=== PATIENT | female | born 1960 | race Caucasian/White ===

== ENCOUNTER 2023-04-08 14:45 | Outpatient (OUT) | payer MEDICARE, MEDICAID, SELFPAY ==
--- NOTE | 2023-04-08 | XR_ITS ---
The [address] [address] Patient Name: OLY MARTIN MRN: [id number] date: 1960 Sex: F Assigned Patient Location: [facility] Current Patient Location: Accession/Order Number: [id number] Exam Date: 04/08/2023 14:50 Report Date: 04/09/2023 09:54 At the request of: ISABELLA KELLY Procedure: XR foot RT min 3V PROCEDURE: XR foot RT min 3V HISTORY: RIGHT FOOT WOUND plantar surface wound in region of first metatarsal COMPARISON: XR foot right 06/09/2022 FINDINGS: BONES:Mild-moderate degenerative changes of the first metatarsophalangeal joint and interphalangeal joint. Degenerative enthesopathic spurring of the calcaneus and mild degenerative changes the midfoot. Stable osseous spurs projecting from second metatarsal, likely sequela of remote injury. No fracture, dislocation, or cortical destruction. SOFT TISSUES:Mild swelling. No radiopaque foreign body or appreciable plantar skin surface defect. EFFUSION:None visible. OTHER: Negative. XR/XR foot RT min 3V IMPRESSION: 1. Stable degenerative changes. 2. No radiographic findings to suggest osteomyelitis. Electronically authenticated by: AMANDA HOSKINS Date: 04/09/2023 09:54
== END 2023-04-08 14:46 | disposition home or self-care (01) ==
LOC: RAD 14:45
PROVIDERS: Visit Provider Physician Assistant
DX: L97.511 Non-pressure chronic ulcer of other part of right foot limited to breakdown of skin (principal)
CPT/HCPCS: 73630

== ENCOUNTER 2023-04-08 16:12 | Emergency (ER) | payer MEDICARE, MEDICAID, SELFPAY ==
[2023-04-08] VITALS (33 sets, daily range): BP systolic 161–228; BP diastolic 82–138; PULSE 87–114; RESP 15–97; TEMP 37.1; O2SAT 92–99; BMI 41.6
--- NOTE | 2023-04-08 16:28 | ECG_ITS ---
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
--- NOTE | 2023-04-08 16:29 | CT_ITS ---
The [address] [address] Patient Name: OLY MARTIN MRN: [id number] date: 1960 Sex: F Assigned Patient Location: ER Current Patient Location: ER Accession/Order Number: [id number] Exam Date: 04/08/2023 16:53 Report Date: 04/08/2023 17:08 At the request of: TANVIR BRIGGS Procedure: CT head/brain wo con EXAM: CT scan of the head without contrast. Dose reduction technique used: Automated exposure control and/or adjustment of the mA and/or kV according to patient size and/or use of iterative reconstruction technique. REASON FOR EXAM: Headache, hypertension COMPARISON: CT scan dated 07/20/2014 FINDINGS: No intracranial hemorrhage, mass effect, midline shift, fractures or evidence of acute ischemic infarct. No hydrocephalus. Tiny old left basal ganglia lacunar infarct. Minimal generalized cerebral and cerebellar volume loss. Minimal small vessel gliosis. Paranasal sinuses and mastoid air cells are clear. Remainder unremarkable. CT/CT head/brain wo con IMPRESSION: No acute intracranial abnormalities. Electronically authenticated by: GRACIELA DEAN Date: 04/08/2023 17:08
--- NOTE | 2023-04-08 16:29 | ED.GENADUL1 ---
HPI - General Adult General Chief complaint: Recheck/Abnormal Lab/Rx Stated complaint: High Blood Pressure Time Seen by Provider: 04/08/23 16:20 Source: patient Mode of arrival: walk-in Limitations: no limitations History of Present Illness HPI narrative: 62-year-old female presents for elevated blood pressure. She was sent here from wound care clinic. She is on blood pressure medication and states she has not missed any doses. For the past three days she's been feeling a little bit off balance. She's had a mild headache but hasn't had any head injury. No chest pain or palpitations or shortness of breath. Related Data Home Medications Medication Instructions Recorded Confirmed amlodipine 5 mg tablet 10 mg PO DAILY 04/08/23 04/08/23 carvedilol 25 mg tablet 25 mg PO BID 04/08/23 04/08/23 ciprofloxacin HCl 500 mg tablet 500 mg PO DAILY 04/08/23 04/08/23 dapagliflozin propanediol 10 mg 10 mg PO DAILY 04/08/23 04/08/23 tablet (Farxiga) empagliflozin 10 mg tablet 10 mg PO DAILY 04/08/23 04/08/23 (Jardiance) fluticasone propionate 50 1 spray intranasal Q12H 04/08/23 04/08/23 mcg/actuation nasal spray,suspension hydralazine 25 mg tablet 25 mg PO TID 04/08/23 04/08/23 hydrochlorothiazide 25 mg tablet 25 mg PO DAILY 04/08/23 04/08/23 insulin glargine 100 unit/mL (3 1 unit subcut DAILY 04/08/23 04/08/23 mL) subcutaneous pen (Lantus Solostar U-100 Insulin) insulin lispro 100 unit/mL 1 sliding scale dose subcut DAILY 04/08/23 04/08/23 subcutaneous pen (Humalog KwikPen (U-100) Insulin) lacosamide 100 mg tablet 100 mg PO BID 04/08/23 04/08/23 levetiracetam 500 mg tablet 500 mg PO DAILY 04/08/23 04/08/23 levetiracetam 750 mg tablet 750 mg PO Q12H 04/08/23 04/08/23 losartan 25 mg tablet 25 mg PO DAILY 04/08/23 04/08/23 paroxetine HCl 40 mg tablet 40 mg PO DAILY 04/08/23 04/08/23 potassium chloride 20 mEq 20 meq PO BID 04/08/23 04/08/23 tablet,extended release(part/cryst) zolpidem 10 mg tablet 10 mg PO DAILY 04/08/23 04/08/23 Allergies Allergy/AdvReac Type Severity Reaction Status Date / Time meperidine [From Demerol] Allergy Severe Verified 04/08/23 16:23 morphine Allergy Severe Verified 04/08/23 16:23 tylenol 3 Allergy Severe Uncoded 04/08/23 16:23 Review of Systems ROS Narrative A ten point review of systems is negative except as noted above. PFSH PFSH Social History Smoking status: Never smoker Exam Narrative Exam Narrative: Nurses note and vital signs reviewed and patient is not hypoxic. General: The patient appears well and in no apparent distress. Patient is resting comfortably on cart. Skin: Warm, dry, no pallor noted. There is no rash noted. Head: Normocephalic, atraumatic Eye: Normal conjunctiva, no drainage Ears, Nose, Mouth, and Throat: oral mucosa is moist. Nares patent. Cardiovascular: Regular Rate and Rhythm Respiratory: Patient is in no distress, no accessory muscle use, lungs are clear to auscultation, no wheezing, rales or rhonchi Back: non-tender GI: obese and nontender Musculoskeletal: The patient has no evidence of calf tenderness, no pitting edema, symmetrical pulses noted bilaterally Neurological: awake and alert Psychiatric: Cooperative Constitutional Vital Signs, click to edit/add: Last Vital Signs Temp 98.7 F 04/08/23 16:15 Pulse 87 04/08/23 18:20 Resp 22 04/08/23 18:20 BP 186/100 H 04/08/23 18:41 Pulse Ox 97 04/08/23 18:20 O2 Del Method Room Air 04/08/23 16:15 Course Vital Signs Vital signs: Vital Signs Temperature 98.7 F 04/08/23 16:15 Pulse Rate 114 H 04/08/23 16:15 Respiratory Rate 24 04/08/23 16:15 Blood Pressure 228/118 H 04/08/23 16:15 Pulse Oximetry 99 04/08/23 16:15 Oxygen Delivery Method Room Air 04/08/23 16:15 Temperature 98.7 F 04/08/23 16:15 Pulse Rate 87 04/08/23 18:20 Respiratory Rate 22 04/08/23 18:20 Blood Pressure 186/100 H 04/08/23 18:41 Pulse Oximetry 97 04/08/23 18:20 Oxygen Delivery Method Room Air 04/08/23 16:15 Medical Decision Making MDM Narrative Medical decision making narrative: the patient presented with elevated blood pressure which was persistent here. She was ordered IV labetalol and the patient is signed out to Dr. Henry. Differential Diagnosis Differential Diagnosis: uncontrolled hypertension, acute kidney injury, medication noncompliance Lab Data Lab results reviewed: Yes I reviewed the patient's lab results Labs: Lab Results 04/08/23 Range/Units 16:20 WBC 9.2 (4.0-11.0) 10^3/uL RBC 4.24 (4.20-5.40) 10^6/uL Hgb 11.4 L (12.0-16.0) g/dL Hct 34.6 L (36.0-48.0) % MCV 81.6 (81.0-99.0) fL MCH 26.9 (26.7-34.0) pg MCHC 32.9 (29.9-35.2) g/dL RDW 13.5 (11.0-15.0) % Plt Count 304 (150-450) 10^3/uL MPV 9.9 (9.5-13.5) fL Neut % (Auto) 63.4 (43.0-75.0) % Lymph % (Auto) 25.8 (20.5-60.0) % [place]anco % (Auto) 7.4 (1.7-12.0) % Eos % (Auto) 2.4 (0.9-7.0) % Baso % (Auto) 0.8 (0.2-2.0) % Neut # (Auto) 5.8 (1.4-6.5) 10^3/uL Lymph # (Auto) 2.4 (1.2-3.8) 10^3/uL [place] # (Auto) 0.7 (0.3-0.8) 10^3/uL Eos # (Auto) 0.2 (0.0-0.7) 10^3/uL Baso # (Auto) 0.1 (0.0-0.1) 10^3/uL Abs Immat Gran (auto) 0.02 (0.00-0.03) 10^3/uL Imm/Tot Granulo (auto) 0.2 (0.0-0.5) % Sodium 138 (136-145) mmol/L Potassium 3.2 L (3.5-5.1) mmol/L Chloride 101 (98-107) mmol/L Carbon Dioxide 24.8 (21.0-32.0) mmol/L Anion Gap 15.4 BUN 31.0 H (7.0-18.0) mg/dL Creatinine 1.72 H (0.55-1.02) mg/dL Est GFR ( Amer) 37 L (>=60) Est GFR (Non-Af Amer) 30 L (>=60) BUN/Creatinine Ratio 18.0 Glucose 168 H (74-106) mg/dL Calcium 9.1 (8.5-10.1) mg/dL ECG Data Attestation: I personally reviewed and interpreted this ECG as follows: (EKG on my interpretation shows sinus tachycardia without acute change.) Discharge Plan Discharge Chief Complaint: Recheck/Abnormal Lab/Rx Clinical Impression: Hypertension Patient Disposition: Still a Patient Prescriptions / Home Meds: No Action amlodipine 5 mg tablet 10 mg PO DAILY carvedilol 25 mg tablet 25 mg PO BID ciprofloxacin HCl 500 mg tablet 500 mg PO DAILY Farxiga 10 mg tablet 10 mg PO DAILY Jardiance 10 mg tablet 10 mg PO DAILY fluticasone propionate 50 mcg/actuation spray,suspension 1 spray INTRANASAL Q12H hydralazine 25 mg tablet 25 mg PO TID hydrochlorothiazide 25 mg tablet 25 mg PO DAILY insulin glargine [Lantus Solostar U-100 Insulin] 100 unit/mL (3 mL) insulin pen 1 unit SUBCUT DAILY insulin lispro [Humalog KwikPen Insulin] 100 unit/mL insulin pen 1 sliding scale dose SUBCUT DAILY lacosamide 100 mg tablet 100 mg PO BID levetiracetam 500 mg tablet 500 mg PO DAILY levetiracetam 750 mg tablet 750 mg PO Q12H losartan 25 mg tablet 25 mg PO DAILY paroxetine HCl 40 mg tablet 40 mg PO DAILY potassium chloride 20 mEq tablet,ER particles/crystals 20 meq PO BID zolpidem 10 mg tablet 10 mg PO DAILY Referrals: Physician,Non-Staff, [Primary Care Provider] - 1 week
--- NOTE | 2023-04-08 16:40 | PC.NURSE ---
pt is a diabetic and was at wound clinic today. pt was feeling sob and bp was reading high in office and was sent over after wound care was completed. on arrival to ED pt is tearful d/t feeling sob. no hx of copd, chf, asthma. pt denies chest pain. pt manual bp on arrival is 220s/120s. pt states she does take her bp medications as prescribed. pt is c/o a headache.
[2023-04-08 16:46] LABS: Basophils Absolute Auto 0.1 10^3/uL (0.0-0.1); Basophils Percent Auto 0.8 % (0.2-2.0); Eosinophils Absolute Auto 0.2 10^3/uL (0.0-0.7); Eosinophils Percent Auto 2.4 % (0.9-7.0); Hematocrit 34.6 % (36.0-48.0); Hemoglobin 11.4 g/dL (12.0-16.0); Immature Granulocytes Abs Auto 0.02 10^3/uL (0.00-0.03); Immature Granulocytes Pct Auto 0.2 % (0.0-0.5); Lymphocytes Absolute Auto 2.4 10^3/uL (1.2-3.8); Lymphocytes Percent Auto 25.8 % (20.5-60.0); Mean Corpuscular HGB Conc 32.9 g/dL (29.9-35.2); Mean Corpuscular Hemoglobin 26.9 pg (26.7-34.0); Mean Corpuscular Volume 81.6 fL (81.0-99.0); Mean Platelet Volume 9.9 fL (9.5-13.5); Monocytes Absolute Auto 0.7 10^3/uL (0.3-0.8); Monocytes Percent Auto 7.4 % (1.7-12.0); Neutrophils Absolute Auto 5.8 10^3/uL (1.4-6.5); Neutrophils Percent Auto 63.4 % (43.0-75.0); Platelet Count 304 10^3/uL (150-450); Red Blood Count 4.24 10^6/uL (4.20-5.40); Red Cell Distribution Width 13.5 % (11.0-15.0); White Blood Count 9.2 10^3/uL (4.0-11.0)
[2023-04-08 16:55] LABS: Anion Gap 15.4; Calcium 9.1 mg/dL (8.5-10.1); Carbon Dioxide 24.8 mmol/L (21.0-32.0); Chloride 101 mmol/L (98-107); Estimated GFR (African America 37 (>=60); Estimated GFR (Non-African Ame 30 (>=60); Glucose 168 mg/dL (74-106); Potassium 3.2 mmol/L (3.5-5.1); Sodium 138 mmol/L (136-145)
[2023-04-08] MEDS: LABETALOL HCL 20 MG/4 ML SYRINGE 10 MG IVP (18:14)
== END 2023-04-08 19:45 | disposition left against medical advice (07) ==
PROVIDERS: Emergency Medicine; Emergency Provider Internal Medicine
DX: I16.0 Hypertensive urgency (principal); Z53.29 Procedure and treatment not carried out because of patient's decision for other reasons; Z79.899 Other long term (current) drug therapy; Z79.4 Long term (current) use of insulin
CPT/HCPCS: 36415; 70450; 73630; 80048; 85025; 93005; 96374; 99285

== ENCOUNTER 2023-05-31 13:29 | Outpatient (OUT) | payer MEDICARE, MEDICAID, SELFPAY | END 2023-05-31 13:30 | disposition home or self-care (01) | LOC: WC 13:29 | PROVIDERS: Visit Provider Physician Assistant | DX: E11.621 Type 2 diabetes mellitus with foot ulcer (principal); L97.411 Non-pressure chronic ulcer of right heel and midfoot limited to breakdown of skin; E11.42 Type 2 diabetes mellitus with diabetic polyneuropathy; L60.3 Nail dystrophy | CPT/HCPCS: 11043; 11721 ==

== ENCOUNTER 2023-06-15 10:00 | Outpatient (OUT) | payer MEDICARE, MEDICAID, SELFPAY | END 2023-06-15 10:01 | disposition home or self-care (01) | LOC: WC 10:00 | PROVIDERS: Visit Provider Podiatrist Foot & Ankle Surgery | DX: E11.621 Type 2 diabetes mellitus with foot ulcer (principal); L97.411 Non-pressure chronic ulcer of right heel and midfoot limited to breakdown of skin | CPT/HCPCS: 11042 ==

== ENCOUNTER 2023-07-15 10:50 | Emergency (ER) | payer MEDICARE, MEDICAID, SELFPAY ==
[2023-07-15 10:52] VITALS: BP 153/88; PULSE 74; RESP 16; TEMP 37; O2SAT 94; BMI 47.2
--- NOTE | 2023-07-15 11:09 | ECG_ITS ---
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
[2023-07-15] MEDS: ONDANSETRON PF 4 MG/2 ML VIAL IV (11:24)
[2023-07-15] MEDS: 0.9 % SODIUM CHLORIDE 1,000 ML 999 ML IV (11:24)
--- OUTSIDE RECORDS SUMMARY | 2023-07-15 11:26 | XMS_ITS | CCD ---
Author Name Unknown Address [address] [facility] [id number] [place] [address] Organization [facility] Care Team Providers Care Pleat Taper Name Role Phone GUTIERREZ, JESSA Unavailable Unavailable GUTIERREZ, JESSA Unavailable Unavailable GUTIERREZ, JESSA Unavailable Unavailable GUTIERREZ, JESSA Unavailable Unavailable VIGREN, FADY Unavailable Unavailable VIRGEN, FADY Unavailable Unavailable VIRGEN, FADY Unavailable Unavailable VIRGEN, FADY Unavailable Unavailable VIRGEN, FADY Unavailable Unavailable BABIUCH, BRITTANY Unavailable Unavailable BARTOLOJAZZYIP T Admitting Unavailable JAZZY BANGIP T Attending Unavailable CHRISTOPHE IRWIN Primary Care Unavailabl e Christophe Irwin Primary Care Provider [phone] MapShailesh villalobosdra Unavailable ViryjonathanFadumo Unavailable PROVIDER, UNKNOWN Attending Unavailable PROVIDER, UNKNOWN Admitting Unavailable LETICIA, ISABELLA Attending Unavailable NADERER, DR CHRISTOPHE Redmond Primary Care Unavailable LETICIA, ISABELLA Admitting Unavailable LETICIA, ISABELLA Admitting Unavailable LETICIA, ISABELLA Attending Unavailable NADERER, DR CHRISTOPHE Redmond Primary Care Unavailable NADERER, DR CHRISTOPHE Redmond Primary Care Unavailable HIGHLANDER, PETER Gisell Attending Unavailable HIGHLANDER, PETER D Admitting Unavailable HIGHLANDER, PETER D Attending Unavailable NADERER, DR CHRISTOPHE Redmond Primary Care Unavailable HIGHLANDER, PETER D Admitting Unavailable NADERER, DR CHRISTOPHE Redmond Primary Care Unavailable HIGHLANDER, PETER D Attending Unavailable HIGHLANDER, PETER D Admitting Unavailable NADERER, DR CHRISTOPHE Redmond Primary Care Unavailable HIGHLANDER, PETER D Attending Unavailable HIGHLANDER, PETER D Admitting Unavailable NADERER, DR CHRISTOPHE Redmond Primary Care Unavailable HIGHLANDER, PETER D Attending Unavailable HIGHLANDER, PETER D Admitting Unavailable LETICIA, ISABELLA Admitting Unavailable LETICIA, ISABELLA Attending Unavailable ZIEBER, DR AMANDA Oh Consulting Unavailable ALIDA, DR CHRISTOPHE Redmond Primary Care Unavailable ISABELLA KELLY Consulting Unavailable AIDEE, DR AMANDA Oh Consulting Unavailable ALIDA, DR CHRISTOPHE Redmond Primary Care Unavailable MARIONANDER, MONET Jameson Attending Unavailable HIGHLANDER, PETER Gisell Admitting Unavailable HIGHLANDER, MONET Jameson Consulting Unavailable AIDEE, DR AMANDA Oh Consulting Unavailable ALIDA, DR CHRISTOPHE Redmnod Primary Care Unavailable HIGHLANDER, MONET Jameson Attending Unavailable HIGHLANDER, PETER D Admitting Unavailable HIGHLANDER, MONET Jameson Consulting Unavailable ALIDA, DR CHRISTOPHE Redmond Primary Care Unavailable HIGHLANDER, MONET Jameson Attending Unavailable HIGHLANDER, PETER D Admitting Unavailable Mapus, Tondra K Admitting Unavailable Mapus, Tondra K Attending Unavailable Roney Sahu Primary Care Unavailable Allergies Allergy Classification Reported Allergen(s) Allergy Type Date of Onset Reaction(s) Facility (2 sources) meperidine; Translations: [MEPERIDINE (PF)] Drug Allergy 01-31-20 14 [facility] Repository (20 sources) morphine; Translations: [MORPHINE] Drug Allergy 01-31-20 14 Other (See Comments) [facility] Repository (20 sources) Meperidine Drug Allergy 09-05-19 Other (See Comments) [place], [place] (1 source) Sertraline Drug Allergy 09-05-19 Hives [place], [place] (1 source) Other Propensity to adverse reactions 09-05-19 Other (See Comments) [place], [place] (20 sources) Acetaminophen Drug Allergy Unknown [facility] Other (1 source) Meperidine Drug Allergy 03-06-20 15 [facility] Repository (1 source) Sertraline Drug Allergy 05-11-20 [facility] Repository (1 source) Tylenol-Codeine #3 Drug allergy (disorder) 05-11-20 [facility] Repository (4 sources) dulaglutide Drug Allergy g/i [facility] Other (4 sources) semaglutide Drug Allergy g/i s/e [facility] Other Medications Current Medications Medication Drug Class(es) Dates Sig (Normalized) Sig (Original) acetaminophen 500 mg oral tablet (20 sources) take 2 tablets by mouth every six hours Acetaminophen 500 MG 2 tablets as needed Orally every 6 hrs Active Acetaminophen 50 0 MG CAPS Take 500 mg by mouth as needed 0 Active Alcohol Swabs 70 % (13 sources) Alcohol Swabs 70 % use with insuliun injections E11.9 6 x daily for 90 days Active amitriptyline hydrochloride 75 mg oral tablet (18 sources) Tricyclic Antidepressant take 1 tablet by mouth every twenty-four hours Amitriptyline HCl 75 MG 1 tablet at bedtime Orally Once a day Active amLODIPine 10 mg oral tablet (8 sources) Dihydropyridine Calcium Channel Ajay Start: 2017 take 1 tablet by mouth once daily amLODIPine (NORVASC) 10 MG tablet Take 10 mg by mouth daily 0 02/07/2018 Active ascorbic acid 500 mg oral capsule (2 sources) Vitamin C Vitamin C 500 MG as directed Orally Active atorvastatin 80 mg oral tablet (5 sources) HMG-CoA Reductase Inhibitor take 1 tablet by mouth every twenty-four hours Atorvastatin Calcium 80 MG 1 tablet Orally Once a day Active Calcium 500-2.5 MG-MCG (2 sources) take 1 tablet by mouth once daily Calcium 500-2.5 MG-MCG 1 tablet with a meal Orally Once a day Active calcium carbonate 1250 mg / cholecalciferol 100 unt chewable tablet (11 sources) Vitamin D take 1 tablet by mouth every twenty-four hours Calcium 500-2.5 MG-MCG 1 tablet with a meal Orally Once a day Active calcium chloride 0.0014 meq/ml / potassium chloride 0.004 meq/ml / sodium chloride 0.103 meq/ml / sodium lactate 0.028 meq/ml injectable solution (1 source) Start: 2019 lactated ringers infusion carvedilol 25 mg oral tablet (17 sources) alpha-Adrenergic Ajay, beta-Adrenergic Ajay take 1 tablet by mouth every twelve hours Carvedilol 25 MG 1 tablet with food Orally Twice a day Active Cholecalciferol (17 sources) Vitamin D Cholecalciferol 25 MCG (1000 UT) 1 capsule Orally Active Cholecalciferol 1.25 MG (76780 UT) 1 capsule Orally Active diclofenac sodium 0.01 mg/mg topical gel (12 sources) Nonsteroidal Anti-inflammatory Drug Diclofenac Sodium 1 % as directed Externally Active Diclofenac Sodiu m 1 % APPLY 4 GRAMS AFFECTED AREA(S) ON LEGS AND FEET ONCE DAILY OR NEEDED for 90 Not-Taking diclofenac sodiu m (VOLTAREN) 1 % GEL Apply 2 g topically 4 times daily as needed 0 Active 0.5 ML dulaglutide 6 MG/ML Auto-Injector [Trulicity] (8 sources) GLP-1 Receptor Agonist inject 3 mg by subcutaneous injection every week Trulicity 3 MG/0.5ML 3mg SQ once weekly for 28 days Active inject 3 mg by subcu taneous injection every week Trulicity 3 MG/0.5ML 3mg SQ once weekly for 84 days Active Dulaglutide (DYLAN LICITY SC) Inject 1 mg into the skin once a week mondays 0 Active empagliflozin 10 mg oral tablet (20 sources) Sodium-Glucose Cotransporter 2 Inhibitor Start: 07-17-2021 take 1 tablet by mouth every twenty-four hours Jardiance 10 MG 1 tablet Orally Once a day for 90 day(s) Jun, Active ergocalciferol 1.25 mg oral capsule (20 sources) Provitamin D2 Compound Start: 02-13-2020 take 1 capsule by mouth every week Ergocalciferol 1.25 MG (97020 UT) 1 capsule Orally weekly Jan, Active 2 ml fentaNYL 0.05 mg/ml injection (3 sources) Opioid Agonist Start: 09-07-2019 fentaNYL (SUBLIMAZE) injection 50 mcg Start: 09-07-2019 fentaNYL (SUBL IMAZE) injection 25 mcg Start: 09-07-2019 End: 09-07-2019 fentaNYL (SUBLIMAZE) 100 MCG /2ML injection fluticasone propionate 0.05 mg/actuat metered dose nasal spray (17 sources) Corticosteroid take 1 spray(s) nasa l route once daily Flonase 50 MCG/DOSE 1 spray in each nostril Nasally Once a day Active take 1 spray(s) nasal route once daily Flonase 50 MCG/DOSE 1 spray in each nostril Nasally Once a day Active FreeStyle Precision Ana Test - (20 sources) Start: 10-15-2021 FreeStyle Prec ision Ana Test - prn ac, hs if sensor fails In Vitro PRN for 90 days Sep, Active FreeStyle Precis ion Ana Test - prn ac, hs if sensor fails In Vitro PRN for 90 days Active furosemide 20 mg oral tablet (20 sources) Loop Diuretic take 1 tablet by ewelina th every twenty-four hours Furosemide 20 MG 1 Tablet Orally Daily Active take 25 mg by mouth once daily F urosemide (LASIX PO) Take 25 mg by mouth daily 0 Active 3 ml insulin glargine 100 unt/ml pen injector (20 sources) Insulin Analog Lantus SoloStar 100 UNIT/ML 40 units Subcutaneous bid for 90 days titrate up to 90 units/day Active insulin glargine (LANTUS) 100 UNIT/ML injection vial Inject 80 Units into the skin every morning 0 Active 3 ml insulin lispro 100 unt/ ml pen injector (20 sources) Insulin Analog HumaLOG KwikPen 100 UNIT/ML 9,12,15,18 units ac ACCORDING TO MEAL SIZE. Corrective SCALE 1:20 ac ( hs if >200 half dose) Subcutaneous ac,hs for 90 days (Expect up to 50 units/day) Active insulin lispro ( HUMALOG) 100 UNIT/ML injection vial Inject into the skin 4 times daily (before meals and nightly) Sliding scale 0 Active isopropyl alcohol 0.7 ml/ml medicated pad (7 sources) Alcohol Swabs 70 % use with insuliun injections E11.9 6 x daily for 90 days Active levETIRAcetam 750 mg oral tablet (20 sources) take 1 tablet by ewelina th every twelve hours levETIRAcetam 750 MG 1 tablet Orally every 12 hrs Active take 1 tablet by ewelina th every twelve hours levETIRAcetam 500 MG 1 tablet Orally tess ry 12 hrs Active losartan potassium 100 mg oral tablet (20 sources) Angiotensin 2 Receptor Ajay take 1 tablet by mouth every twenty-four hours Losartan Potassium 100 MG 1 tablet Orally Once a day Active take 1 tablet by ewelina th every twenty-four hours Losartan Potassium 25 MG 1 tablet Orally Once a day Active Magnesium (20 sources) take 400 mg by mouth twice daily Magnesium 400 MG as directed Orally BID Active take 1 capsule by mouth once marti ly Magnesium 400 MG CAPS Take 400 mg by mouth daily 0 Active metoprolol tartrate 50 mg oral tablet (20 sources) beta-Adrenergic Ajay take 1 tablet by mouth every twelve hours Metoprolol Tartrate 50 MG 1 tablet Orally Twice a day Active 2 ml midazolam 1 mg/ml injection (1 source) Benzodiazepine Start: 0 midazolam (VERSED) injection 1 mg omeprazole 40 mg delayed release oral capsule (17 sources) Proton Pump Inhibitor take 1 capsule by mouth every twenty-four hours take 1 capsule by mo uth every twenty-four hours Omeprazole 20 MG 1 capsule Orally Once a day Active take 1 capsule by mouth twice da singh omeprazole (PRILOSEC) 40 MG delayed release capsule Take 40 mg by mouth 2 times daily 0 Active One Touch Glucometer ultra m ini (20 sources) One Touch Glucom eter ultra mini use to test blood sugars E11.9 QID for 365 days Active OneTouch Ultra Mini w/Device (20 sources) Start: 10-27-2016 Start: 10-27-2016 OneTouch Ultra Mini w/Device use to test blood sugars E11.9 daily for 365 days October, Active PARoxetine hydrochloride 20 mg oral tablet (17 sources) Serotonin Reuptake Inhibitor take 1 tablet by mouth every twenty-four hours PARoxetine HCl 20 MG 1 tablet in the morning Orally Once a day Active microencapsulated potassium chloride 20 meq extended release oral tablet (20 sources) take 1 tablet by mouth every twenty-four hours Klor-Con M20 20 MEQ 1 tablet with food Orally Once a day Active rosuvastatin calcium 10 mg oral tablet (20 sources) HMG-CoA Reductase Inhibitor End: 020 take 1 tablet by mouth once daily Rosuvastatin Calcium 10 MG TAKE ONE TABLET BY MOUTH DAILY for 90 Active 0.25 mg, 0.5 mg dose 1.5 ml semaglutide 1.34 mg/ml pen injector (13 sources) Start: 022 Ozempic (0.25 or 0.5 MG/DOSE) 2 MG/1.5ML 0.5mg Subcutaneous once weekly trulicity ineffective Feb, Active sucralfate 1000 mg oral tablet (17 sources) Aluminum Complex take 1 tablet by mouth every six hours Sucralfate 1 GM 1 tablet on an empty stomach Orally qid Active take 1 tablet by mouth every six hours Sucralfate 1 GM 1 tablet on an empty stomach Orally qid Active take 1 tablet by mouth four time s daily Sucralfate 1 GM 1 tablet on an empty stomach Orally qid Active Vitamin C 500 MG (18 sources) Vitamin C 500 MG as directed Orally Active Completed/Discontinued Medications Medication Drug Class(es) Dates Sig (Normalized) Sig (Original) cyclopentolate hydrochloride 10 mg/ml ophthalmic solution (1 source) Start: 09-07-2019 End: 09-07-2019 cyclopentolate (CYCLOGYL) 1 % ophthalmic solution 1 drop dexamethasone 1 mg/ml / tobramycin 3 mg/ml ophthalmic suspension (1 source) Aminoglycoside Antibacterial, Corticosteroid Start: 09-07-2019 End: 09-07-2019 tobramycin-dexameth asone (TOBRADEX) ophthalmic suspension 1 drop esomeprazole 40 mg delayed release oral capsule (14 sources) Proton Pump Inhibitor Start: 10-18-2018 End: 09-07-2019 take 1 capsule by mouth twice daily before mealtime esomeprazole (NEXIUM) 40 MG delayed release capsule Take 40 mg by mouth 2 times daily (before meals) 0 10/18/2018 09/07/2019 Discontinued (LIST CLEANUP) take 1 capsule by mouth every tw enty-four hours glucose 4000 mg chewable tablet (7 sources) Dex4 Glucose 4-6 GM-MG as directed Orally PRN Low blood glucose Not-Taking hydroCHLOROthiazide 25 mg oral tablet (8 sources) Thiazide Diuretic take 1 tablet by mouth every twenty-four hours hydroCHLOROthiazide 25 MG 1 capsule Orally Once a day Not-Taking linaclotide 0.29 mg oral capsule (8 sources) Guanylate Cyclase-C Agonist take 1 capsule by mouth every twenty-four hours Linzess 290 MCG 1 capsule Orally daily Not-Taking take 1 capsule by mouth once marti ly linaclotide (LINZESS) 290 MCG CAPS capsule Take 290 mcg by mouth daily 0 Active melatonin 5 mg oral tablet (7 sources) take 1 tablet by mouth once daily at bedtime as needed Melatonin 5 MG 1 tablet at bedtime as needed with food Orally Once a day Not-Taking OneTouch Ultra - (7 sources) OneTouch Ultra - TEST FOUR TIMES A DAY for 87 Not-Taking OneTouch Ultra Blue - (7 sources) OneTouch Ultra B lue - TEST FOUR TIMES A DAY Not-Taking Ozempic (0.25 or 0.5 MG/DOSE) 2 MG/1.5ML (1 source) Ozempic (0.25 or 0.5 MG/DOSE) 2 MG/1.5ML 0.5mg Subcutaneous once weekly for 84 days Not-Taking phenylephrine hydrochloride 100 mg/ml ophthalmic solution (1 source) alpha-1 Adrenergic Agonist Start: 09-07-19 End: 09-07-19 20 phenylephrine (ANA-SYNEPHRINE) 10 % ophthalmic solution 1 drop Potassium (7 sources) Potassium Not-Ta anna Potassium Active tropicamide 10 mg/ml ophthalmic solution (1 source) Anticholinergic Start: 09-07-2019 End: 09-07-2019 tropicamide (MYDRIACYL) 1 % ophthalmic solution 1 drop Problems Active Problems Problem Classification Problem Date Documented Da te Episodic/Chronic Abdominal pain (20 sources) Abdominal pain; Translations: [Abdominal pain] Episodic Acquired foot deformities (1 source) Flat foot [pes planus] (acquired), right foot; Translations: [FLAT FOOT PES PLANUS ACQ RT FOOT] Onset: 09-10-2022 Episodic Administrative/social admission (3 sources) Dietary counseling and surveillance Onset: 07-17-2021 Resolved: 10-15-2021 Episodic Anal and rectal conditions (18 sources) Rectal pain; Translations: [Rectal pain] Episodic Chronic kidney disease (20 sources) Chronic kidney disease stage 3; Translations: [Chronic kidney disease, stage 3 (moderate)] Onset: 07-17-2021 Resolved: 10-15-2021 Chronic Chronic ulcer of skin (3 sources) Non-pressure chronic ulcer of right heel and midfoot limited to breakdown of skin; Translations: [Non-pressure chronic ulcer of other part of right foot with fat layer exposed] Onset: 09-10-2022 Chronic Diabetes mellitus with complications (20 sources) Disorder of kidney due to diabetes mellitus; Translations: [Type 2 diabetes mellitus with other diabetic kidney complication] Onset: 07-17-2021 Resolved: 01-01-2022 Chronic Diabetes mellitus without complication (20 sources) Type 2 diabetes mellitus; Translations: [Diabetes mellitus] Onset: 09-07-2019 09-07-2019 Chronic Diabetes mellitus without complication (1 source) Diabetes mellitus without complication; Translations: [Type 2 diabetes mellitus with diabetic chronic kidney disease] Onset: 05-06-2023 Disorders of lipid metabolism (20 sources) Hyperlipidemia; Translations: [Hyperlipidemia, unspecified] Onset: 07-17-2021 Resolved: 10-15-2021 Chronic Essential hypertension (20 sources) Essential hypertension; Translations: [Essential (primary) hypertension] Onset: 07-17-2021 Resolved: 10-15-2021 Chronic Fracture of lower limb (1 source) Displaced fracture of lateral malleolus of left fibula, subsequent encounter for closed fracture with delayed healing; Translations: [DSPL FX LM LT FIB SUB CLOS FX DLAY] Onset: 09-10-2022 Episodic Hypertension with complications and secondary hypertension (1 source) Hypertensive chronic kidney disease with stage 1 through stage 4 chronic kidney disease, or unspecified chronic kidney disease; Translations: [HTN CKD W/STAGE 1-4 CKD/UNS CKD] Onset: 09-03-2022 Chronic Infective arthritis and osteomyelitis (except that caused by tuberculosis or sexually transmitted disease) (1 source) Other acute osteomyelitis, right ankle and foot; Translations: [OTH ACUTE OSTEOMYEL RT ANKLE FOOT] Onset: 11-10-2022 Chronic Nausea and vomiting (20 sources) Nausea and vomiting; Translations: [Nausea & vomiting] Episodic Nutritional deficiencies (20 sources) Vitamin D deficiency; Translations: [Vitamin D deficiency, unspecified] Chronic Open wounds of extremities (1 source) Unspecified open wound, right foot, initial encounter Episodic Other aftercare (4 sources) residential (current) use of insulin; Translations: [residential (current) use of insulin] Onset: 11-01-2017 Resolved: 10-15-2021 Episodic Other aftercare (20 sources) Long-term current use of insulin; Translations: [residential (current) use of insulin] Episodic Other connective tissue disease (1 source) Plantar fascial fibromatosis; Translations: [PLANTAR FASCIAL FIBROMATOSIS] Onset: 09-10-2022 Episodic Other endocrine disorders (20 sources) Nocturnal hypoglycemia due to diabetes mellitus; Translations: [Other hypoglycemia] Chronic Other gastrointestinal disorders (18 sources) Dysphagia; Translations: [Dysphagia] Episodic Other gastrointestinal disorders (18 sources) Diarrhea; Translations: [Diarrhea] Episodic Other gastrointestinal disorders (2 sources) Altered bowel function; Translations: [Change in bowel habit] Episodic Other gastrointestinal disorders (2 sources) Flatulence, eructation and gas pain; Translations: [Abdominal distension (gaseous)] Episodic Other hereditary and degenerative nervous system conditions (1 source) Other idiopathic peripheral autonomic neuropathy; Translations: [OTH IDIO PERIPH AUTONOM NEUROPATHY] Onset: 09-10-2022 Chronic Other injuries and conditions due to external causes (1 source) Other injury of unspecified body region, sequela; Translations: [OTHER INJURY UNS BODY REGION SEQ] Onset: 09-03-2022 Episodic Other nutritional; endocrine; and metabolic disorders (20 sources) Morbid obesity; Translations: [Morbid (severe) obesity due to excess calories] Chronic Other nutritional; endocrine; and metabolic disorders (20 sources) Body mass index 40+ - severely obese; Translations: [Body mass index (BMI) 40.0-44.9, adult] Chronic Other nutritional; endocrine; and metabolic disorders (20 sources) Obese class II; Translations: [Body mass index (BMI) 39.0-39.9, adult] Chronic Other nutritional; endocrine; and metabolic disorders (2 sources) Body mass index (BMI) 40.0-44.9, adult Onset: 07-17-2021 Resolved: 10-15-2021 Chronic Other nutritional; endocrine; and metabolic disorders (1 source) Body mass index (BMI) 39.0-39.9, adult Chronic Other skin disorders (1 source) Nail dystrophy; Translations: [NAIL DYSTROPHY] Onset: 11-10-2022 Episodic Other skin disorders (1 source) Corns and callosities; Translations: [CORNS AND CALLOSITIES] Onset: 09-23-2022 Episodic Residual codes; unclassified (1 source) Localized edema; Translations: [LOCALIZED EDEMA] Onset: 11-10-2022 Episodic Skin and subcutaneous tissue infections (1 source) Cellulitis of right lower limb; Translations: [CELLULITIS OF RIGHT LOWER LIMB] Onset: 11-10-2022 Episodic Unclassified (1 source) Type 2 diabetes mellitus with proliferative diabetic retinopathy with macular edema, bilateral; Translations: [Type 2 diabetes mellitus with proliferative diabetic retinopathy with macular edema, bilateral] Onset: 11-01-2017 Unclassified (1 source) CHRN KIDNEY DISEASE STG 3 UNSP; Translations: [CHRN KIDNEY DISEASE STG 3 UNSP] Onset: 09-03-2022 Past or Other Problems Problem Classification Problem Date Documented Da te Episodic/Chronic Chronic kidney disease (1 source) Chronic kidney disease Open wounds of extremities (1 source) Unspecified open wound of left lesser toe(s) without damage to nail, initial encounter; Translations: [UNS OP WND LT LSR TOE NO DMG NL INT] Onset: 07-03-2022 Episodic Other connective tissue disease (4 sources) Pain in right foot; Translations: [PAIN IN RIGHT FOOT] Onset: 02-18-2022 Episodic Other eye disorders (3 sources) Myogenic ptosis of left eyelid; Translations: [Myogenic ptosis of right eyelid] Onset: 12-23-2016 Episodic Other non-traumatic joint disorders (4 sources) Pain in right ankle and joints of right foot; Translations: [PAIN IN RIGHT ANKLE] Onset: 04-01-2022 Episodic Results Test Name Value Interpretation Reference Range Facility A1C HEMOGLOBINon 05-06-2023 HbA1c (Bld) [Mass fraction] 6.8 % [facility] Other Glucose - FINGER STICKon Glucose [Mass/Vol] 177 mg/dL [facility] Other HbA1c (Bld) [Mass fraction]o n 05-06-2023 A1C HEMOGLOBIN [facility] Other A1C HEMOGLOBINon 10-15-2021 HbA1c (Bld) [Mass fraction] 8 % [facility] Other Glucose - FINGER STICKon Glucose [Mass/Vol] 290 mg/dL [facility] Other HbA1c (Bld) [Mass fraction]o n 10-15-2021 A1C HEMOGLOBIN [facility] Other A1C HEMOGLOBINon 07-17-2021 HbA1c (Bld) [Mass fraction] 7.2 % [facility] Other Glucose - FINGER STICKon Glucose [Mass/Vol] 194 mg/dL [facility] Other HbA1c (Bld) [Mass fraction]o n 07-17-2021 A1C HEMOGLOBIN [facility] Other Creatinine W/GFR Point of Ca reon 09-07-2019 Creatinine [Mass/Vol] 1.95 mg/dL High 0.51 - 1.19 mg/dL [facility] Non- 27 mL/min Low >60 [facility]/1.73 sq M predicted among non-blacks MDRD (S/P/Bld) [Vol rate/Area] 32 mL/min/{1.73_m2} Low >60 [facility], TE2 GFR/1.73 sq M predicted among non-blacks MDRD (S/P/Bld) [Vol rate/Area] [place], [place] Comment on above: Average GFR for 50-5 9 years old: 93 mL/min/1.73sq m Chronic Kidney Disease: <60 mL/min/1.73sq m Kidney failure: <15 mL/min/1.73sq m eGFR calculated using average adult body mass. Additional eGFR calculator available at: http://www.[employer]/multiple_crcl_2012.htm OPERATIVE REPORTon 0 OPERATIVE REPORT [address] [id number] OPERATIVE REPORT PATIENT NAME: OLY HARRELL : 1960 MED REC NO: [id number] ROOM: ACCOUNT NO: [id number] ADMIT DATE: 09/07/2019 PROVIDER: Castillo Bang DATE OF PROCEDURE: 09/07/2019 PREOPERATIVE DIAGNOSES: 1. Vitreous hemorrhage, left eye. 2. Proliferative diabetic retinopathy, left eye. POSTOPERATIVE DIAGNOSES: 1. Vitreous hemorrhage, left eye. 2. Proliferative diabetic retinopathy, left eye. PROCEDURES: Pars plana vitrectomy with focal and panretinal photocoagulation, left eye. SURGEON: Castillo Bang MD ESTIMATED BLOOD LOSS: Less than 1 mL. COMPLICATIONS: None. SPECIMENS: None. REASON FOR OPERATION: The patient is a 58-year-old woman with proliferative diabetic retinopathy, who has had recurrent vitreous hemorrhages in the left eye. She has elected to undergo surgery in the hopes of clearing blood and improving her vision and hopefully mitigating any future bleeding episodes. She understands the risks include, but are not limited to, bleeding, infection, and retinal detachment. DESCRIPTION OF PROCEDURE: The patient was brought to the operating room in good condition. She was administered local anesthetic and prepped and draped in the usual fashion. 25-gauge vitrectomy trocars were placed through the pars plana in the usual quadrants. The infusion was attached to the inferotemporal site. Light pipe and ocutome were placed through the superior sites. The vitreous was removed from anterior to posterior. Much of the vitreous was detached by the time I got to the back of the vitreous gel. I trimmed it out as far as I could see and then used scleral depression inferiorly to trim near the vitreous base. There was quite a bit of panretinal photocoagulation already in place. There was a small area of flat neovascularization along the superotemporal arcade at 02:00 o'clock. I treated this with focal laser. I added panretinal laser in areas that had not previously been treated, mostly peripherally. No bleeding occurred during the surgery. I removed the trocars, and they were self-sealing. 50 mg ceftazidime were injected sub-Tenon's in the inferotemporal quadrant. The eye was patched in the usual fashion. The patient was taken to the recovery room in good condition. 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, with long-term currentuse of insulin ([facility]) (primary encounter diagnosis)Comment:Hemoglobin A1C (%)Date Value12/02/2016 7.3 - right eye: s/p panretinal laser photocoagulation - appear stable - signs of Macular ischemia on OCT that remains stable without fluid - visual acuity stable at 20/60 range - recommend observation - left eye: s/p panretinal laser photocoagulation - recent vitreous hemmorhage s/p multiple Avastin - appearance of Neovascularization of the disc on exam today withclearing vitreous hemmorhage - recommend continued anti-VEGF therapy - repeat Avastin left eye today and follow up in 6 weeks for Avastin aahavlcS19.1 Pseudophakia of both eyesComment: stable/obsAny documentation recorded by the scribe accurately reflects the service Ipersonally performed and the decisions made by myself, Brittany Sparks MD.I have confirmed and edited as necessary the relevant ophthalmic history,ROS, and the neuro exam findings as obtained by others. I have seen andexamined Oly Harrell. I have discussed the case and the managementof this patient's care with the Resident/Fellow, if applicable. I alsohave reviewed and agree with the assessment and plan as stated above andagree with all of its relevant components. 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 I have confirmed and editedas necessary the relevant ophthalmic history, medications, ROS, and theneuro and ophthalmic exam findings as obtained by others and myself.I have discussed the case and the management of this patient's care withthe Resident/Fellow, if applicable. I also have reviewed and agree withthe assessment and plan as stated above and agree with all of its relevantcomponents.I have discussed the treatment alternatives with the patient and thepatient's family, if applicable. 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 I have confirmed and editedas necessary the relevant ophthalmic history, medications, ROS, and theneuro and ophthalmic exam findings as obtained by others and myself.I have discussed the case and the management of this patient's care withthe Resident/Fellow, if applicable. I also have reviewed and agree withthe assessment and plan as stated above and agree with all of its relevantcomponents.I have discussed the treatment alternatives with the patient and thepatient's family, if applicable. 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 I have confirmed and editedas necessary the relevant ophthalmic history, medications, ROS, and theneuro and ophthalmic exam findings as obtained by others and myself.I have discussed the case and the management of this patient's care withthe Resident/Fellow, if applicable. I also have reviewed and agree withthe assessment and plan as stated above and agree with all of its relevantcomponents.I have discussed the treatment alternatives with the patient and thepatient's family, if applicable. Follow-up as noted below, or sooner ifnew symptoms develop.Fady New MD [facility] 04-02-2017 HOSP Office Visit OPHT (OPHTLN) ----OLY HARRELL ([id number]) 1960 FDate Time Provider Jsmatqgcsb64/6/17 12:00 PM JESSA GUTIERREZ During your visit today, we recorded the following information about you:Jessa Gutierrez MD 04/02/2017 12:19 PM SignedA/P: s/p bilateral anterior levator advancement?ptosis repair with debulking offat 12/23/16Looks great, patient happy2. Notices bump on right browAppears to be from an old scar injuryDiscussed not much to do about itThe documentation for this note was completed by Chelo Hair COA acting asa scribe for Jessa Gutierrez MD.The documentation recorded by the scribe accurately reflects the service Ipersonally performed and the decisions made by me. I have confirmed and editedas necessary the relevant ophthalmic history, ROS, and the neuro exam findingsas obtained by others. I have seen and examined Oly Nyla Delia have discussed the case and the management of this patient's care with theResident/Fellow, if applicable. I also have reviewed and agree with theassessment and plan as stated above and agree with all of its relevantcomponents.SHAY Mancusoeferring Provider: JESSA GUTIERREZ [[id number]]Allergies As of Date: 04/02/2017 Noted Allergy ReactionDEMEROL (MEPERIDINE (PF)) 01/30/2014 10 - AnaphylaxisMORPHINE 01/30/2014 10 - AnaphylaxisDate Reviewed: 01/01/2017Reviewed by: Inge Munoz (Tech) - Fully AssessedReason for Visit: Post-Op Visit [1236] Cmt: s/p lid repair 12/23/16Primary Visit Diagnosis:Ptosis of both eyelids [H02.403]Order(s):IOP MEASUREMENT [0238093] Order #: [id number]: 1Prescriptions as of 04/02/2017 Sig: NEOMYCIN 3.5 MG/G-POLYMYXIN B* Use twice a day to affected e* INSULIN GLARGINE 300 UNIT/ML * Inject subcutaneously every * INSULIN ASPART 100 UNIT/ML CAUSEY* Inject subcutaneously daily * EXENATIDE 10 MCG/DOSE(250 MCG* Inject 10 mcg subcutaneously * AMLODIPINE 5 MG TABLET GABAPENTIN 100 MG CAPSULE Take 100 mg by mouth three ti* ACETAMINOPHEN 500 MG CAPSULE Take 1,000 mg by mouth three * ATORVASTATIN 80 MG TABLET Take 80 mg by mouth once edmundo* METOPROLOL TARTRATE ORAL Take by mouth.Problem List As Of Date 04/02/2017 Noted Resolved Type 1 diabetes mellitus with proliferative ret*INVALID FOR*09/02/2015 Vitreous hemorrhage (HCC) - Left Eye [H43.10] INVALID FOR*08/11/2016 Senile nuclear sclerosis - Both Eyes [H25.10] INVALID FOR*08/11/2016 Nuclear sclerosis [H25.10] INVALID FOR*08/11/2016 Type 2 diabetes mellitus with proliferative chente*INVALID FOR* 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] INVALID FOR*08/11/2016 HTN (hypertension) [I10] INVALID FOR* GERD (gastroesophageal reflux disease) [K21.9] INVALID FOR* Mixed hyperlipidemia [E78.2] INVALID FOR* Diabetic vitreous hemorrhage associated with ty*INVALID FOR* 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 Disc: Discontinued by another Health Care Provider cholecalciferol (VITAMIN D-3) 2,000 * 04/02/2017 Class: Historical Med Route: ORAL Sig: Take 2,000 Units by mouth once daily. Disc: Discontinued by Patient erythromycin ophthalmic ointment 1 Tu* 0 12/23/2016 04/02/2017 Sig: Four times a day to affected lid x 5 days Disc: Course of therapy completed erythromycin ophthalmic ointment 2 * 1 12/23/2016 04/02/2017 Class: Print RX Sig: Apply to incisions and in both eyes four times a day X 1 wk then twice a day x 1 wk Disc: Course of therapy completed erythromycin ophthalmic ointment 1 Tu* 1 12/23/2016 04/02/2017 Class: Med Update Route: BOTH EYES Sig: Use 1 application in both eyes four times daily. Apply 1/2 inch ribbon per application. Apply to incision as well as both eyes. Disc: Course of therapy completed famotidine (PEPCID) 40 mg tablet 01/09/2016 04/02/2017 Class: Historical Med Sig: Disc: Discontinued by Patient FERROUS SULFATE (IRON ORAL) 04/02/2017 Class: Historical Med Route: ORAL Sig: Take by mouth. Disc: Discontinued by PatientEncounter Number: [id number] Status:Closed by JESSA GUTIERREZ MD on 04/02/17 Normal [facility] PROGRESSon 04-01-2017 Protein mass conc HNO ID: [id number] thor: Jessa GutierrezSer: (none)Author Type: PhysicianType: Progress NotesFiled: 04/02/2017 12:19 PMNote Text:A/P: s/p bilateral anterior levator advancement?ptosis repair withdebulking of fat 12/23/16Looks great, patient happy2. Notices bump on right browAppears to be from an old scar injuryDiscussed not much to do about itThe documentation for this note was completed by Chelo Hair COAacting as a scribe for Jessa Gutierrez MD.The documentation recorded by the scribe accurately reflects the service Ipersonally performed and the decisions made by me. I have confirmed andedited as necessary the relevant ophthalmic history, ROS, and the neuroexam findings as obtained by others. I have seen and examined Oly Villagomez have discussed the case and the management of this patient's care withthe Resident/Fellow, if applicable. I also have reviewed and agree withthe assessment and plan as stated above and agree with all of its relevantcomponents.Jessa Gutierrez MD [facility] ANES Jaylen 12-23-2016 ANES POST HNO ID: [id number] thor: Harjeet PeñalozaService: AnesthesiologyAuthor Type: PhysicianType: Anesthesia PostOpFiled: 12/23/2016 2:03 PMNote Text:POST ANESTHESIA EVALUATION NOTESERVICE DATE: 12/23/2016SERVICE TIME: 2:03 PMDOB: 1960Vitals: 12/23/1709Temp: 36.3 ?C (97.3 ?F) 36.7 ?C (98 ?F) 12/23/1709BP: 154/91 154/79 145/75 159/79 12/23/1709Pulse: 102 104 106 104 12/23/1709Resp: 18 16 16 16 12/23/1709SpO2: 99% 98% 97% 98%Validated Vital Signs: YesNo apparent anesthetic complications. The patient is appropriatelyhydrated with stable respiratory and cardiovascular status. Patient hassafe and adequate airway control. The patient has appropriate pain reliefand no significant post operative nausea or vomiting. The patient hasachieved baseline mental status.Further assessment by Anesthesia Service: NoneOther Remarks:SIGNATURE: Harjeet Peñaloza MD PATIENT NAME: Oly HarrellDATE: December 23, 2016 : 2:03 PM PAGER/CONTACT #: [facility] ANES PREOPon 12-23-2016 ANES PREOP HNO ID: [id number] thor: El PulidoerService: (none)Author Type: PhysicianType: Anesthesia PreOpFiled: 12/23/2016 9:14 AMNote Text:REGIONAL ANESTHESIOLOGY PREOPERATIVE ASSESSMENTPATIENT NAME: Oly HarrellMRN: [id number]: 1960Surgeon(s):Jessa Rileyure(s) (LRB):REPAIR BLEPHAROPTOSIS; (TARSO) LEVATOR RESECTION OR ADVANCEMENT, EXTERNALAPPROACH (Bilateral)Estimated body mass index is 44.81 kg/(m2) as calculated from thefollowing: Height as of 12/02/16: 157.5 cm (5' 2 ). Weight as of this encounter: 111.1 kg (245 lb).Most recent hematocrit and potassium results:Hematocrit 35.7 12/02/2016Potassium 4.0 12/02/2016Vitals: [id number]: 154/91Pulse: 102Resp: 18Temp: 36.3 ?C (97.3 ?F)TempSrc: Temporal ArterySpO2: 99%Weight: 111.1 kg (245 lb)ACTIVE PROBLEM LISTType 2 Diabetes Mellitus With Proliferative Diabetic Retinopathy WithoutMacular EdemaHtn (Hypertension)Gerd (Gastroesophageal Reflux Disease)Mixed HyperlipidemiaDiabetic Vitreous Hemorrhage Associated With Type 2 Diabetes Mellitus(Hcc)Myogenic Ptosis of Eyelid of Both EyesType 2 Diabetes Mellitus With Complication, With Long-Term Current Use ofInsulin (Hcc)Morbid Obesity (Hcc)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)PAST MEDICAL HISTORYDiagnosis Date- CKD (chronic kidney disease) stage 3, GFR 30-59 ml/min- Diabetes (HCC)- HLD (hyperlipidemia)- HTN (hypertension)- Morbid obesity (HCC)- Proliferative retinopathy due to DM (HCC) both eyesPAST SURGICAL HISTORY03/03/12: AVASTIN (BEVACIZUMAB) 1.25MG INTRAVITREAL INJE* Comment: #1 RIGHT EYE11/08/12: AVASTIN (BEVACIZUMAB) 1.25MG INTRAVITREAL INJE* Comment: #2 RIGHT EYE05/03/13: AVASTIN (BEVACIZUMAB) 1.25MG INTRAVITREAL INJE* Comment: #3 RIGHT EYE03/10/12: AVASTIN (BEVACIZUMAB) 1.25MG INTRAVITREAL INJE* Comment: #1 LEFT EYE11/30/12: AVASTIN (BEVACIZUMAB) 1.25MG INTRAVITREAL INJE* Comment: #2 LEFT EYE08/01/13: AVASTIN (BEVACIZUMAB) 1.25MG INTRAVITREAL INJE* Comment: #3 LEFT EYENo date: COLONOSCOP W/ OR W/O [facility] SPEC Comment: ColonoscopyNo date: EGD W/O OR W/BRUSH/WASH Comment: EGD03/10/12: F EYE LASER PROCEDURE Comment: FOCAL LASER RIGHT EYE03/24/12: F EYE LASER PROCEDURE Comment: FOCAL LASER LEFT EYE07/07/12: F EYE LASER PROCEDURE Comment: FOCAL LASER RIGHT EYE11/30/12: F EYE LASER PROCEDURE Comment: PRP LASER RIGHT EYE12/28/12: F EYE LASER PROCEDURE Comment: PRP LASER LEFT EYENo date: PAST SURGICAL HISTORY OF Comment: cataract left eyeNo date: PAST SURGICAL HISTORY OF Comment: back injectionsNo date: REMOVAL GALLBLADDER Comment: CholecystectomyNo date: TOTAL ABDOM HYSTERECTOMY Comment: Hysterectomy, TAHSocial History:Social HistorySubstance Use Topics- Smoking status: Former Smoker- Smokeless tobacco: Never Used- Alcohol use NoNo current facility-administered medications on file prior to encounter.Current Outpatient Prescriptions on File Prior to Encounter:amLODIPine (NORVASC) 5 mg tabletFERROUS SULFATE (IRON ORAL) Take by mouth.famotidine (PEPCID) 40 mg tabletcholecalciferol (VITAMIN D-3) 2,000 unit tablet Take 2,000 Units by mouthonce daily.atorvastatin (LIPITOR) 80 mg tablet Take 80 mg by mouth once daily.METOPROLOL TARTRATE ORAL Take by mouth.gabapentin (NEURONTIN) 100 mg capsule Take 100 mg by mouth three timesdaily.Acetaminophen 500 mg cap Take 1,000 mg by mouth three times daily.Current Facility-Administered Medications:lactated ringers infusion 30 mL/hr INTRAVENOUS CONTINUOUS Jessa HwangLast Rate: 30 mL/hr at 12/23/16 0847 30 mL/hr at 12/23/16 0847Allergies:ALLERGIESAller gen Reactions- Demerol [Meperidine* Anaphylaxis- Morphine AnaphylaxisANESTHESIOLOGY REVIEW:AIRWAY ASSESSMENT: MP 2; Neck ROM: Full ROM; Airway Evaluation: Nosignificant abnormalitiesSYMPTOMS OF SLEEP APNEA: noneINTUBATION HISTORY: No previous history of difficult intubationADVERSE ANESTHESIA EVENT: No history of adverse eventFAMILY HIISTORY OF ANESTHESIA: No known issuesBlood Products: Not anticipated for this procedureAnesthetic Assessment/Plan: ADDIE Status: 3I have interviewed and examined the patient. I have reviewed the medicalrecord and/or the pre-anesthesia evaluation, pertinent labs, and testresults.Significant changes in the patient's condition since the History andPhysical, not otherwise documented in primary service progress notes: NoAnesthetic risks, benefits, alternatives, personnel and consent discussed.YesThis contains updated information obtained within 48 hours ofSurgery/Procedure.SIGNATUR E: El Alvarado MDDATE: December 23, 2016TIME: 9:14 AM [facility] OPERATIVE NOon 12-23-2016 OPERATIVE NO HNO ID: [id number] thor: Jessa GutierrezService: OphthalmologyAuthor Type: PhysicianType: Operative ReportFiled: 12/23/2016 10:37 AMNote Text: OPERATIVE/PROCEDURE REPORTLOG ID: [id number]/Procedure Date: 12/23/2016Incision/Procedure Start Time: 9:50 AMIncision Close/Procedure End Time: 10:35 AMSurgeon(s)/Proceduralist(s ) and Feed Inspection Supervisor(s):Surgeon(s) and Role: * Jessa Gutierrez - PrimaryPre-Op/Pre-Procedure Diagnosis: bilateral upper myogenic (aponeuroticdehiscence) blepharoptosis obstructing visionPost-Op/Post-Procedure Diagnosis: SAMEProcedure(s): Procedure(s) (LRB):REPAIR BLEPHAROPTOSIS; (TARSO) LEVATOR RESECTION OR ADVANCEMENT, EXTERNALAPPROACH (Bilateral) bilateral anterior levator advancement ptosis repair with debulking offat Anesthesia: Monitored Anesthesia CareProcedure indications: The patient requires bilateral upper eyelidanterior ptosis repair in order to improve superior field of vision toimprove activities of daily living. In addition because of anteriorprolapse of fat causing mechanical ptosis, this was also debulked.An extensive discussion of the risks, benefits, alternatives of the abovesurgeries was conducted with the patient. The patient understood therisks including, but not limited to, bleeding, infection, scarring,asymmetry,need for future additional surgery, poor cosmesis, worsening dryeyes, orbital hemorrhage causing loss of vision, nerve damage, muscledamage, double vision, complications of anesthesia including loss of life.Procedure Details:After the risks and benefits of planned procedure were explained to thepatient, fully informed consent was obtained. The patient was thenidentified by the attending surgeon, Jsesa Gutierrez, and taken to theoperating room, where sign-in and time-out were performed. Localanesthesia achieved with a total 2 mL, 1% lidocaine with 1:100,000epinephrine containing 50 units per 10 mL of hyaluronidase solution. Thepatient was then prepped and draped in standard sterile fashion.Attention was then turned to bilateral upper eyelid ptosis surgery. Lidcrease incision at approx 10mm was made on the eyelid centrally with a 15blade. Next attention was placed to the anterior levator advancement surgery.The orbicularis was dissected thru with don scissors. The superior 1/3junction was cleared to reveal the superior tarsus. The levatoraponeurosis was identified. The preaponeurotic central eyelid fat padswere accessed and debulked conservatively with monopolar catuery. Anoptimal lift point was determined and a 6-0 novafil suture was passedpartial thickness thru the tarsus and the levator advanced. The patienthad additional medial ptosis and another 6-0 novafil was placed to advancethe levator medially on both sides. The patient was sat up. The height wasjudged to be at a good height and symmetric. The patient was laid backdown and then levator advancement sutures were then tied. The advancedlevator was trimmed slightly on both sides. The skin was then closed with6-0 fast absorbing gut sutures in a running fashion. The patient wascleaned and antibiotic ointment applied.The patient returned to recovery room in stable condition, havingtolerated the procedure well. There were no complications related to theoperative procedure.Estimated Blood Loss: less than 10ccSpecimens: NoneImplantable Devices: NoneDrains: NoneComplications: NoneParticipation:Dr. Gutierrez performed local infiltration, and nurses performed prep anddrape under indirect supervision with Staff out of room and immediatelyavailable.Dr. Jessa Gutierrez was scrubbed with assistance for the entireremainder of the case.SIGNATURE: Jessa Gutierrez MD PATIENT NAME: Oly Shay: December 23, 2016 : PAGER/CONTACT #: [facility] PT EDon 12-23-2016 PT ED HNO ID: [id number] thor: Patti (Rn) MELANIE Krishnanervice: NursingAuthor Type: Registered NurseType: Patient EducationFiled: 12/23/2016 11:09 AMNote Text:[facility] PATIENT EDUCATION NOTEREADINESS TO LEARNCOGNITIVE ABILITY: Alert and orientedMOTIVATION TO LEARN: InterestedFAMILY SUPPORT: Unable to assess - Family not presentINSTRUCTION PROVIDED TO: Patient and family memberPATIENT LEARNS BEST BY: Individual InstructionWritten Instruction - Hand-outsVerbal InstructionFACTORS AFFECTING LEARNING: NonePHYSICAL LIMITATIONS AFFECTING LEARNING: NoneLEARNING RESPONSEMETHOD OF INSTRUCTION: Individual instructionWritten instruction - handoutsVerbal instructionPATIENT / FAMILY RESPONSE: Verbalizes understanding of: DISCHARGEINSTRUCTIONS: PROCEDURE SPECIFICFOLLOW-UP PLAN: Follow up phone call.REFERRAL (RECOMMENDATION): NonePatient Education completed by another RN: NoElectronically Signed By Patti Krishnan RN [facility] Vital Signs Date Time Vital Sign Value Performing Clinician Facility 05-06-2023 13:45-0500 Body height 160.66 cm Tondra Mapus Other [facility] Other 05-06-2023 13:45-0500 Body mass index (BMI) [Ratio] 39.68 kg/m2 Tondra Mapus Other [facility] Other 05-06-2023 13:45-0500 Body weight 102.42 kg Tondra Mapus Other [facility] Other 05-06-2023 13:45-0500 Diastolic blood pressure 77 mm[Hg] Tondra Mapus Other [facility] Other 05-06-2023 13:45-0500 Respiratory rate 18 /min Tondra Mapus Other [facility] Other 05-06-2023 13:45-0500 SaO2% (BldA) [Mass fraction] 100 % Tondra Mapus Other [facility] Other 05-06-2023 13:45-0500 Systolic blood pressure 187 mm[Hg] Tondra Mapus Other [facility] Other 04-14-2022 15:00-0400 Body height 160.66 cm Fadumo Bairess Other [facility] Other 04-14-2022 15:00-0400 Body mass index (BMI) [Ratio] 39.92 kg/m2 Fadumo Bairess Other [facility] Other 04-14-2022 15:00-0400 Body temperature 97.3 [degF] Fadumo Bairess Other [facility] Other 04-14-2022 15:00-0400 Body weight 103.06 kg Fadumo Bairess Other [facility] Other 04-14-2022 15:00-0400 Diastolic blood pressure 110 mm[Hg] Fadumo Bairess Other [facility] Other 04-14-2022 15:00-0400 Respiratory rate 20 /min Fadumo Bairess Other [facility] Other 04-14-2022 15:00-0400 SaO2% (BldA) [Mass fraction] 98 % Fadumo Bairess Other [facility] Other 04-14-2022 15:00-0400 Systolic blood pressure 170 mm[Hg] Napoleoniz Ruddyhous Other [facility] Other 10-15-2021 17:15-0400 Body height 160.66 cm Tondra Mapus Other [facility] Other 10-15-2021 17:15-0400 Body mass index (BMI) [Ratio] 40.59 kg/m2 Tondra Mapus Other [facility] Other 10-15-2021 17:15-0400 Body weight 104.78 kg Tondra Mapus Other [facility] Other 10-15-2021 17:15-0400 Diastolic blood pressure 84 mm[Hg] Tondra Mapus Other [facility] Other 10-15-2021 17:15-0400 Respiratory rate 20 /min Tondra Mapus Other [facility] Other 10-15-2021 17:15-0400 SaO2% (BldA) [Mass fraction] 95 % Tondra Mapus Other [facility] Other 10-15-2021 17:15-0400 Systolic blood pressure 147 mm[Hg] Tondra Mapus Other [employer] Other 07-17-2021 15:15-0500 Body height 160.66 cm Tondra Mapus Other [employer] Other 07-17-2021 15:15-0500 Body mass index (BMI) [Ratio] 41.12 kg/m2 Tondra Mapus Other [employer] Other 07-17-2021 15:15-0500 Body weight 106.14 kg Tondra Mapus Other [employer] Other 07-17-2021 15:15-0500 Diastolic blood pressure 84 mm[Hg] Tondra Mapus Other [employer] Other 07-17-2021 15:15-0500 Respiratory rate 20 /min Tondra Mapus Other [employer] Other 07-17-2021 15:15-0500 SaO2% (BldA) [Mass fraction] 97 % Tondra Mapus Other [employer] Other 07-17-2021 15:15-0500 Systolic blood pressure 135 mm[Hg] Tondra Mapus Other [employer] Other 09-07-2019 12:00-0400 Pulse Oximetry 97 % [place] , [place] 09-07-2019 11:45-0400 Body Temperature 97.5 [degF] Castillo [employer], [place] 09-07-2019 11:45-0400 BP Diastolic 82 mm[Hg] Castillo [employer] [place] , [place] 09-07-2019 11:45-0400 BP Systolic 150 mm[Hg] Castillo [employer] [place] , [place] 09-07-2019 11:45-0400 Pulse (Heart Rate) 94 /min [place] 09-07-2019 11:45-0400 Respiratory Rate 16 /min [place] [employer] 09-07-2019 08:38-0400 BMI (Body Mass Index) 45.54 kg/m2 [place] 09-07-2019 08:38-0400 Body weight 112.95 kg Castillo [employer] [place], [place] 09-07-2019 08:38-0400 Height 157.5 cm Castillo [employer] [place] , [place] Encounters Encounter Date Encounter Type Care Provider Facility Start: 07-08-2023 End: 07-08-2023 ambulatory Tondra Mapus Other [employer] Other Start: 07-08-2023 Telephone encounter Tondra [facility] Start: 05-18-2023 End: 05-18-2023 ambulatory Tondra Mapus Other [employer] Other Start: 05-18-2023 Telephone encounter Tondra Mapus [facility] Start: 05-06-2023 (DM) Diabetes Tondra Mapus [facility] Start: 05-06-2023 End: 05-06-2023 ambulatory Tondra K Mapus [facility] [employer] Other Start: 04-29-2023 End: 04-29-2023 ambulatory Tondra Mapus Other [employer] Other Start: 04-29-2023 Telephone encounter Tondra Mapus [facility] Start: 02-24-2023 End: 02-24-2023 ambulatory Tondra Mapus Other [employer] Other Start: 02-24-2023 Telephone encounter Tondra Mapus [facility] Start: 11-09-2022 ambulatory MONET Norris lity:[facility]1 Start: 11-05-2022 End: 11-05-2022 ambulatory Tondra Mapus Other [employer] Other Start: 11-05-2022 Telephone encounter Tondra Mapus [facility] Start: 10-30-2022 End: 10-30-2022 ambulatory Tondra Mapus Other [employer] Other Start: 10-30-2022 Telephone encounter Tondra Mapus [facility] Start: 10-12-2022 End: 10-13-[address] CHRISTOPHE IRWIN Facility:[facility] Start: 09-14-2022 End: 09-15-2022 ambulatory ISABELLA KELLY Facility:[facility] Start: 08-31-2022 End: 09-01-2022 ambulatory ISABELLA KELLY Facility:[facility] Start: 08-27-2022 End: 08-27-2022 ambulatory Tondra Mapus Other [employer] Other Start: 08-27-2022 Telephone encounter Tondra Mapus [facility] Start: 08-18-2022 End: 08-19-[address] CHRISTOPHE IRWIN Facility:[facility] Start: 08-10-2022 End: 08-11-[address] CHRISTOPHE IRWIN Facility:[facility] Start: 07-20-2022 End: 07-21-[address] HCRISTOPHE IRWIN Facility:[facility] Start: 06-26-2022 End: 06-27-[address] CHRISTOPHE IRWIN Facility:[facility] Start: 06-18-2022 End: 06-18-2022 ambulatory Tondra Mapus Other [employer] Other Start: 06-18-2022 Telephone encounter Tondra Mapus [facility] Start: 06-15-2022 End: 06-15-2022 ambulatory Tondra Mapus Other [employer] Other Start: 06-15-2022 Telephone encounter Tondra Mapus [facility] Start: 06-09-2022 End: 06-10-2022 ambulatory ISABELLA KELLY Facility:[facility] Start: 05-11-2022 End: 05-11-2022 ambulatory UNKNOWN PROVIDER Facility:[facility] Start: 05-07-2022 End: 05-07-2022 ambulatory Tondra Mapus Other [employer] Other Start: 05-07-2022 Telephone encounter Tondra Mapus [facility] Start: 04-15-2022 End: 04-15-2022 ambulatory Fadumo Bairess Other [employer] Other Start: 04-15-2022 Telephone encounter Azmahendra Foxnico [facility] Start: 04-14-2022 End: 04-14-2022 ambulatory Azmahendra Bairess Other [employer] Other Start: 04-14-2022 Office outpatient ne w 30 minutes Aziz Bakhous [facility] Start: 04-01-2022 End: 04-02-[address] AMANDA HOSKINS Facility:[facility]1 Start: 02-18-2022 End: 02-19-[address] AMANDA HOSKINS Facility:[facility] Start: 01-01-2022 End: 01-01-2022 ambulatory Tondra Mapus Other [employer] Other Start: 01-01-2022 Telephone encounter Tondra Mapus [facility] Start: 10-15-2021 (DM) Diabetes Tondra Mapus [facility] Start: 10-15-2021 End: 10-15-2021 ambulatory Tondra Mapus Other [employer] Other Start: 10-15-2021 Telephone encounter Tondra Mapus [facility] Start: 10-07-2021 End: 10-07-2021 ambulatory Tondra Mapus Other [employer] Other Start: 10-07-2021 Telephone encounter Tondra Mapus [facility] Start: 08-25-2021 End: 08-25-2021 ambulatory Tondra Mapus Other [employer] Other Start: 08-25-2021 Telephone encounter Tondra Mapus [facility] Start: 07-17-2021 (DM) Diabetes Tondra Mapus [facility] Start: 07-17-2021 End: 07-17-2021 ambulatory Tondra Mapus Other [employer] Other Start: 09-07-2019 End: 09-07-2019 Patient encounter procedure CASTILLO BANG [facility] Start: 09-07-2019 End: 09-07-2019 Subsequent hospital visit by physician Castillo Bang Work Phone: [employer] Start: 01-21-2018 End: 01-24-2018 Patient encounter BRITTANY SPARKS [facility] Start: 11-01-2017 End: 11-02-2017 Patient encounter FADY NEW [facility] Start: 10-04-2017 End: 10-05-2017 Patient encounter FADY NEW [facility] Start: 08-30-2017 End: 09-02-2017 Patient encounter FADY NEW [facility] Start: 04-02-2017 End: 04-02-2017 Patient encounter [facility] Start: 12-23-2016 End: 12-23-2016 Ambulatory [facility] Procedures Date Procedure Procedure Detail Performing Clinician Start: 09-07-2019 BEDREST CASTILLO EDWARDS SEN Start: 09-07-2019 Continuous pulse oximetry CASTILLO VELASQUEZEN Start: 09-07-2019 ENCOURAGE DEEP BREAT NOLVIA AND COUGHING CASTILLO VELASQUEZEN Start: 09-07-2019 INITIATE OXYGEN THER APY PROTOCOL CASTILLO BANG Start: 09-07-2019 NOTIFY PHYSICIAN (SPECIFY) CASTILLO BANG Start: 09-07-2019 NURSING COMMUNICATION P ZEFERINO BANG Start: 09-07-2019 VITAL SIGNS CASTILLO MACKL SEN Start: 09-07-2019 DISCHARGE PATIENT PHILI P BARTOLO Start: 09-07-2019 CREATININE W/GFR POI NT OF CARE CASTILLO BANG Start: 09-07-2019 Potassium serum plasma/whole blood CASTILLO BARTOLO Start: 09-07-2019 BUN AND CREATININE JAZZY IP BARTOLO Start: 09-07-2019 Electrolyte panel PHILI P BARTOLO Start: 09-07-2019 Gluc bld gluc mntr d ev cleared fda spec home use CASTILLO BANG Start: 09-07-2019 INITIATE OXYGEN THER APY PROTOCOL CASTILLO VELASQUEZEN Start: 09-07-2019 NOTIFY PHYSICIAN (SPECIFY) CASTILLO BANG Start: 09-07-2019 PULSE OXIMETRY SPOT CHECK CASTILLO BANG Start: 09-07-2019 Urine test visual color cmprsn meths CASTILLO BANG Start: 09-07-2019 VITAL SIGNS CASTILLO ADAME Start: 09-07-2019 Ecg routine ecg w/le ast 12 lds w/i&r CASTILLO BANG Start: 09-07-2019 CREATININE W/GFR POI NT OF CARE Castillo Bang Work Phone: Start: 09-07-2019 Gluc bld gluc mntr d ev cleared fda spec home use Castillo Bang Work Phone: Start: 09-07-2019 Potassium [Moles/Vol] P zeferino Bang Work Phone: Plan of Treatment Date Care Activity Detail Author Start: 02-26-2019 Influenza vaccination Flu vaccine (# 1) [place], [place] Start: 1960 Creatinine monitoring Creatinine mon itoring [place], [place] Start: 1960 Potassium monitoring Potassium monit [place]ing [place] End: 09-07-2019 BUN & Creatinine BUN & Creatinine Lab STAT One Time for 1 Occurrences starting 09/07/2019 until 09/07/2019 [place], [place] Comment on above: One Time for 1 Occur rences starting 09/07/2019 until 09/07/2019 EKG 12 Lead EKG 12 Lead ECG STAT 09/07/2019 7:38 AM EDT [place] End: 09-07-2019 Electrolyte Panel Electrolyte Panel Lab STAT One Time for 1 Occurrences starting 09/07/2019 until 09/07/2019 [place] Comment on above: One Time for 1 Occur rences starting 09/07/2019 until 09/07/2019 Initiate Oxygen Ther apy Protocol Initiate Oxygen Therapy Protocol Respiratory Care Routine Daily until discontinued starting 09/07/2019 [place] Comment on above: Daily until disconti nued starting 09/07/2019 Phase I & II - meter ed glucose Phase I & II - metered glucose Point of Care Testing Routine As Needed until discontinued starting 09/07/2019 [place] Comment on above: As Needed until disc ontinued starting 09/07/2019 End: 09-07-2019 POCT Glucose [facility] [place]EL[place] Comment on above: One Time for 1 Occur rences starting 09/07/2019 until 09/07/2019 End: 09-07-2019 Pulse Oximetry Spot Check Pulse Oximetry Spot Check Respiratory Care Routine One Time for 1 Occurrences starting 09/07/2019 until 09/07/[facility] [place] Comment on above: One Time for 1 Occur rences starting 09/07/2019 until 09/07/2019 End: 09-07-2019 Urine , POCT Urine , POCT Point of Care Testing Routine One Time for 1 Occurrences starting 09/07/2019 until 09/07/2019 [facility] Comment on above: One Time for 1 Occur rences starting 09/07/2019 until 09/07/2019 Payers Date Payer Category Payer Medicare [facility] [employer] [employer] D[employer] xxxxxxxxx 2019-Present xxxxxxxxx [id number] 2018 Self-pay 2017 Medicare [id number] 2014 Medicaid MEDICAID [facility] DEPT OF JOB xxxxxxxxxxxx 2014-Present [phone] [address] [place] [address] xxxxxxxxxxxx [id number] 1962 Unknown [id number] 75 1962 Unknown [id number] 32 1962 Unknown [id number] 93 1962 Unknown [id number] [id number] 93 1962 Unknown [id number] 93 1962 Unknown [id number] [id number] 93 1962 Unknown [id number] [id number] 93 1962 Unknown [id number] [id number] 93 1962 Unknown [id number] [id number] 93 1962 Unknown [id number] [id number] 93 1962 Unknown [id number] 2.16.840.1.271929.3.579.2.5 93 1962 Unknown [id number] [id number] 1962 Unknown [id number] 93 1959 Medicaid [id number] Unknown [id number] 31 Social History Date Type Detail Facility Start: 09-07-2019 Tobacco smoking stat [facility] Former smoker [place] End: 09-05-1979 History of tobacco use Current smoker [place] End: 09-05-1979 History of tobacco use Cigarette Smoker [place] Start: 09-07-2019 Cigarettes smoked current (pack per day) - Reported [place] Start: 09-07-2019 Alcohol intake Lifetime non-d kojo (finding) [place] Start: 09-05-2019 History SDOH Alcohol Frequency 1 [place] Sex Assigned At Not on file [place], [place] Sex Assigned At Sex Assigned At Bir th [employer] Other Medical Equipment Procedure Code Equipment Code Equipment Original Text Equi pment Identifier Dates Clinical Notes 07-17-2021 to 07-08-2023 Note Date & Type Note Facility 07-08-2023 Evaluation note Encounter Date Diagnosis Assessment Notes Jun, Diabetes mellitus with renal manifestations, uncontrolled (ICD-10 - E11.29) [facility] [facility] Other 11-09-2023 Evaluation note* Encounter Date Diagnosis Assessment Notes Treatment Notes Treatment Clinical Notes Apr, Insulin long-term use (ICD-10 - Z79.4) Apr, Type 2 diabetes mellitus with diabetic chronic kidney disease (ICD-10 - E11.22) 1. Controlled, Type 2 diabetes A1c 6.8%. 2. Blood glucose levels improved. According to [employer] 2 cgm download 04/16/23-04/29/23: Avg glucose 157. >250-5%, >180-29%, 70-180-63%, <70-3%, <54-0%. Reviewed download with pt, isolated incident of hypoglycemia from overestimation of meal insulin for carb load. Reviewed with pt how to titrate basal/bolus insulin according to fasting am/ac supper; meal to meal glucose pattern. Pt verbalizes understanding. Note: pt experienced g/i s/e while taking ozempic. Has used trulicity in past g/i s/e. 3. Patient is alert, oriented and receptive to making changes or counseling. Notes: Seen for an assessment of current glucose pattern, changes in treatment plan, with this time spent in counseling and coordination of care related to diabetes, risks, and benefits of treatment, medications, and side effects. TOPICS REVIEWED: 1. Time was spent reviewing: a. Basic concepts of diabetes, progressive beta cell , concepts of basal/bolus/correct juan luis insulin requirements. Basal: The goal is fasting blood glucose of 90-130mg. IF fasting blood glucose starts to run under 100mg 3x's/ week, decrease dose by 10%. Bolus: The goal is to hold the blood glucose level steady meal to meal. If pt. is going to have increased physical activity after a meal, decrease the schedule meal dose prior to the activity by 30-50%. If pt. skips a meal do not take this dose. Correction: The goal is to correct an elevated glucose back into the 100-150mg range b. Nutrition: Concepts of healthy diet, encouraged to decrease saturated fat in diet and increase non-starchy vegetables and fruits in diet. BMI: Pt. needs to select one small change to decrease caloric intake or increase physical activity to help decrease weight. c. Correct treatment of hypoglycemia, carry a glucose source at all times on your person, in vehicles, and at bedside. Can use glucose tablets/4, four ounces of pop or juice equal to 15 G of carbohydrate. Blood glucose should be 100 mg/dl or higher when driving. d. ADA glucose goals for age and medical complexity reviewed e. Patient questions addressed- pt. will have paperwork sent from [employer] for diabetic shoes. She has history of broken left foot where she has rubbing to dorsum of upper mid foot, which is where she had a lesion about three months ago and had gone to wound clinic and now healed. 2. Activity/exercise: Encouraged to start any form of physical activity. Start low level and increase slowly to a minimal goal of 150 minutes/week. Limit activity to what is allowed by other issues such as cardiac, pulmonary or orthopedic restrictions. 3. Standards of care: Reminded to have an annual dilated eye exam, A1C every 3 months, urine testing for microalbumin once/year, check feet daily and report any cuts or sores that do not appear to be healing. 4. Meter: Plan to check blood glucose: Please check blood glucose levels 4 times/day. Back to back meals reveal effectiveness of bolus dosing. The Blood glucose data is used to determine insulin doses, and confirm symptoms for hypoglycemia and hyperglcyemia.5. [facility]. Contact office if any issues or concerns with patterns of hypoglycemia, hyperglycemia, or diabetes medication issues. 6. Prescriptions: Bolivar Ospina sent 05/06/23 7. Prescriptions will not be filled unless you are compliant with follow up appointments or have a follow up appointment scheduled as ordered by your provider. Refills should be requested at the time of your visit. Apr, Dietary counseling and surveillance (ICD-10 - Z71.3) Healthy eating material was published Apr, Hyperlipidemia (ICD-10 - E78.5) Managing your cholesterol material was published 04/2022 ldl unable to report, trig 433-on statin. Apr, HTN (hypertension) (ICD-10 - I10) High blood pressure material was published on [facility]. Above target f/u with pcp for further recommendation Apr, CKD (chronic kidney disease) stage 3, GFR 30-59 ml/min (ICD-10 - N18.3) Keep f/u with nephrology Apr, BMI 39.0-39.9,adult (ICD-10 - Z68.39) Deciphering the nutrition facts label material was published Apr, Wound of right foot (ICD-10 - S91.301A) keep f/u with Dr. Mata Wednesday05/10/23 [employer] Other 05-05-2023 Evaluation note* Encounter Date Diagnosis Assessment Notes Treatment Notes Treatment Clinical Notes October, Hyperlipidemia (ICD-10 - E78.5) [employer] [facility] Other 12-14-2022 NotePROCEDURE: XR FOOT RT MIN 3 VIEWS HISTORY: Pain in right foot ; ulcer plantar surface first metatarsophalangeal joint COMPARISON: XR foot right 02/18/2022 FINDINGS: BONES:Decreased size of the previously seen area of mild lucency within head of first metatarsal; increased ossification versus positioning. Stable, sclerotic foci within second metatarsal. SOFT TISSUES:No visible soft tissue swelling. EFFUSION:None visible. OTHER: Negative. IMPRESSION: 1. No appreciable ulcer or evidence of osteomyelitis. 2. No acute bone abnormality. Electronically authenticated by: AMANDA HOSKINS Date: 2022-06-10 09:23[facility]10-18-2022 Evaluation note* Encounter Date Diagnosis Assessment Notes Treatment Notes Treatment Clinical Notes Mar, Chronic kidney disease, stage 3b (ICD-10 - N18.32) Likely from diabetic nephropathy. CKD stage IIIb. Creatinine 1.6. GFR 32 Patient needs better control of diabetes to keep hemoglobin A1c below 7%. Patient stated her blood pressure is well controlled at home. Blood pressure target is below 130/80 I asked the patient to stay away from NSAIDs I will check protein to creatinine ratio next visit Follow-up in 6 months Mar, Diabetic nephropathy associated with type 2 diabetes mellitus (ICD-10 - E11.21) Hemoglobin A1c target below 7%. Patient is working with her PCP for medical control of diabetes. I explained to the patient the necessity of controlling diabetes to attenuate chronic kidney disease progression Mar, Primary hypertension (ICD-10 - I10) Patient has whitecoat syndrome. She told me her blood pressure is always elevated when she visited physician's office. I will continue same blood pressure medications. I asked the patient to monitor her blood pressure at home to patient will control of blood pressure. I asked the patient to follow a low-salt diet Mar, Vitamin D deficiency (ICD-10 - E55.9) Patient is taking vitamin D supplement. I will check 25-hydroxy vitamin D level next visit along with PTH, calcium and phosphorus level Mar, Hyperlipidemia, unspecified (ICD-10 - E78.5) Patient is current with her PCP for hyperlipidemia control [facility] Other 10-05-2022 NotePROCEDURE: XR ANKLE RT MIN 3 VIEWS HISTORY: Pain ; ankle pain following twisting injury COMPARISON: XR ankle right 09/24/2020 FINDINGS: BONES:Stable small separate ossification adjacent to the lateral malleolus. No fracture or dislocation. Mild degenerative enthesopathic spurring of the calcaneus. SOFT TISSUES:Mild soft tissue swelling surrounding the ankle. Atherosclerotic disease. EFFUSION:None visible. OTHER: Negative. IMPRESSION: 1. No acute bone abnormality. Electronically authenticated by: AMANDA HOSKINS Date: 2022-04-01 10:53[facility]08-25-2022 NotePROCEDURE: XR ANKLE LT MIN 3 V HISTORY: Pain of left ankle joint COMPARISON: XR ankle left 10/21/2020 FINDINGS: BONES: Distal fibula and fusion of distal syndesmosis via a lateral plate and screws. Persistent slight protrusion of the fifth and seventh screws from the top, and stable 6 mm protrusion of the sixth screw from the top. No bone fracture or dislocation. Normal symmetry and spacing of the ankle joint. SOFT TISSUES:No visible soft tissue swelling. EFFUSION:None visible. OTHER: Negative. IMPRESSION: 1. Stable surgical changes and backing out of screws as detailed above. Electronically authenticated by: AMANAD HOSKINS Date: 2022-02-19 08:07[facility]08-25-2022 NotePROCEDURE: XR FOOT RT MIN 3 VIEWS HISTORY: Pain in right foot COMPARISON: XR foot right 09/24/2020 FINDINGS: BONES:Stable heterotopic ossifications along the second metatarsal. Chronic mild lucency within medial aspect of first metatarsal head. Multifocal mild degenerative joint disease. Small calcaneal plantar spur. SOFT TISSUES:Atherosclerotic disease. EFFUSION:None visible. OTHER: Negative. IMPRESSION: 1. No appreciable acute abnormality. Stable chronic changes. Electronically authenticated by: AMANDA HOSKINS Date: 2022-02-19 08:04[facility]07-07-2022 Evaluation note* Encounter Date Diagnosis Assessment Notes Treatment Notes Treatment Clinical Notes Dec, Diabetes mellitus with renal manifestations, uncontrolled (ICD-10 - E11.29) [facility] Other 04-20-2022 Evaluation note* Encounter Date Diagnosis Assessment Notes Treatment Notes Treatment Clinical Notes Sep, Insulin long-term use (ICD-10 - Z79.4) Sep, Type 2 diabetes mellitus with diabetic chronic kidney disease (ICD-10 - E11.22) 1. Uncontrolled, Type 2 diabetes A1c 8%. 2. Blood glucose levels according to [employer] 2 cgm download 09/29/21-10/12/21: Avg glucose 188. >250-13%, >180-39%, 70-180-48%, <70-0%, <54-0%, CV 27.1%, Reviewed download with pt, often postprandial glucose above target- recommend humalog meal dosing 9-12-15-18 units according to meal size plus corrective scale for improved glycemia postprandial. She verbalizes understanding. 3. Patient is alert, oriented and receptive to making changes or counseling. Notes: Seen for an assessment of current glucose pattern, changes in treatment plan, with this time spent in counseling and coordination of care related to diabetes, risks, and benefits of treatment, medications, and side effects. TOPICS REVIEWED: 1. Time was spent reviewing: a. Basic concepts of diabetes, progressive beta cell , concepts of basal/bolus/correct juan luis insulin requirements. Basal: The goal is fasting blood glucose of 90-130mg. IF fasting blood glucose starts to run under 100mg 3x's/ week, decrease dose by 10%. Bolus: The goal is to hold the blood glucose level steady meal to meal. If pt. is going to have increased physical activity after a meal, decrease the schedule meal dose prior to the activity by 30-50%. If pt. skips a meal do not take this dose. Correction: The goal is to correct an elevated glucose back into the 100-150mg range b. Nutrition: Concepts of healthy diet, encouraged to decrease saturated fat in diet and increase non-starchy vegetables and fruits in diet. BMI: Pt. needs to select one small change to decrease caloric intake or increase physical activity to help decrease weight. c. Correct treatment of hypoglycemia, carry a glucose source at all times on your person, in vehicles, and at bedside. Can use glucose tablets/4, four ounces of pop or juice equal to 15 G of carbohydrate. Blood glucose should be 100 mg/dl or higher when driving. d. ADA glucose goals for age and medical complexity reviewed e. Patient questions addressed- pt. will have paperwork sent from [employer] for diabetic shoes. She has history of broken left foot where she has rubbing to dorsum of upper mid foot, which is where she had a lesion about three months ago and had gone to wound clinic and now healed. 2. Activity/exercise: Encouraged to start any form of physical activity. Start low level and increase slowly to a minimal goal of 150 minutes/week. Limit activity to what is allowed by other issues such as cardiac, pulmonary or orthopedic restrictions. 3. Standards of care: Reminded to have an annual dilated eye exam, A1C every 3 months, urine testing for microalbumin once/year, check feet daily and report any cuts or sores that do not appear to be healing. 4. Meter: Plan to check blood glucose: Please check blood glucose levels 4 times/day. Back to back meals reveal effectiveness of bolus dosing. The Blood glucose data is used to determine insulin doses, and confirm symptoms for hypoglycemia and hyperglcyemia.5. [facility]. Contact office if any issues or concerns with patterns of hypoglycemia, hyperglycemia, or diabetes medication issues. 6. Prescriptions: Trulicity/precison ana test strips sent to [facility]. Sep, Dietary counseling and surveillance (ICD-10 - Z71.3) Healthy eating material was published Sep, Hyperlipidemia (ICD-10 - E78.5) Managing your cholesterol material was published 07/2021 LDL 98, trig 1050-on statin. F/u with pcp for further recommendation on high triglycerides. Sep, HTN (hypertension) (ICD-10 - I10) High blood pressure material was published on [facility]. Sep, CKD (chronic kidney disease) stage 3, GFR 30-59 ml/min (ICD-10 - N18.3) Keep f/u with criminal justice program director pt reported Dr. Donaldson no longer practicing- recommend referral to [facility] nephrology Sep, BMI 40.0-44.9, adult (ICD-10 - Z68.41) Deciphering the nutrition facts label material was published [employer] Other 01-20-2022 Evaluation note* Encounter Date Diagnosis Assessment Notes Treatment Notes Treatment Clinical Notes Jun, Insulin long-term use (ICD-10 - Z79.4) Jun, Type 2 diabetes mellitus with diabetic chronic kidney disease (ICD-10 - E11.22) 1. Uncontrolled, Type 2 diabetes A1c 7.2%. 2. Blood glucose levels slightly higher. Pt has been without penelope 2 cgm, missed apt d/t having back surgery. She was given sample penelope 2 cgm today. Will send for cgm's to [facility]. Discussed with pt adding sglt2. Reviewed common s/e of medication. Reviewed if ill with n/v/d or surgery medication would need stopped. Pt agreeable to starting jardiance 10mg once daily. 3. Patient is alert, oriented and receptive to making changes or counseling. Notes: Seen for an assessment of current glucose pattern, changes in treatment plan, with this time spent in counseling and coordination of care related to diabetes, risks, and benefits of treatment, medications, and side effects. TOPICS REVIEWED: 1. Time was spent reviewing: a. Basic concepts of diabetes, progressive beta cell , concepts of basal/bolus/corre ctive insulin requirements. Basal: The goal is fasting blood glucose of 90-130mg. IF fasting blood glucose starts to run under 100mg 3x's/ week, decrease dose by 10%. Bolus: The goal is to hold the blood glucose level steady meal to meal. If pt. is going to have increased physical activity after a meal, decrease the schedule meal dose prior to the activity by 30-50%. If pt. skips a meal do not take this dose. Correction: The goal is to correct an elevated glucose back into the 100-150mg range b. Nutrition: Concepts of healthy diet, encouraged to decrease saturated fat in diet and increase non-starchy vegetables and fruits in diet. BMI: Pt. needs to select one small change to decrease caloric intake or increase physical activity to help decrease weight. c. Correct treatment of hypoglycemia, carry a glucose source at all times on your person, in vehicles, and at bedside. Can use glucose tablets/4, four ounces of pop or juice equal to 15 G of carbohydrate. Blood glucose should be 100 mg/dl or higher when driving. d. ADA glucose goals for age and medical complexity reviewed e. Patient questions addressed- pt. will have paperwork sent from [employer] for diabetic shoes. She has history of broken left foot where she has rubbing to dorsum of upper mid foot, which is where she had a lesion about three months ago and had gone to wound clinic and now healed. 2. Activity/exercise : Encouraged to start any form of physical activity. Start low level and increase slowly to a minimal goal of 150 minutes/week. Limit activity to what is allowed by other issues such as cardiac, pulmonary or orthopedic restrictions. 3. Standards of care: Reminded to have an annual dilated eye exam, A1C every 3 months, urine testing for microalbumin once/year, check feet daily and report any cuts or sores that do not appear to be healing. 4. Meter: Plan to check blood glucose: Please check blood glucose levels 4 times/day. Back to back meals reveal effectiveness of bolus dosing. The Blood glucose data is used to determine insulin doses, and confirm symptoms for hypoglycemia and hyperglcyemia.5. [facility] Contact office if any issues or concerns with patterns of hypoglycemia, hyperglycemia, or diabetes medication issues. 6. Prescriptions: Trulicity, Lantus/humalog, jardiance sent to [facility]. Sent order for [facility] 2 cgm to [facility]. Pt was given sample penelope 2 today to apply. Jun, Dietary counseling and surveillance (ICD-10 - Z71.3) Healthy eating material was published Jun, Hyperlipidemia (ICD-10 - E78.5) Managing your cholesterol material was published 01/2020 LDL 80, trig 346 on statin. Jun, HTN (hypertension) (ICD-10 - I10) High blood pressure material was published on [facility]. Jun, CKD (chronic kidney disease) stage 3, GFR 30-59 ml/min (ICD-10 - N18.3) Keep f/u with criminal justice program director. 20 Jun, 2021 BMI 40.0-44.9, adult (ICD-10 - Z68.41) Deciphering the nutrition facts label material was published [employer] Other Evaluation noteNo InformationNort MarginLeft Other History general Narrative - Reported* Type Description Date Medical History Diabetes Medical History Hypertension Medical History [facility] Medical History Chronic pelvic pain Medical History CRF stage 3 Medical History LEFT ANKLE FRACTURE WITH SURGICA L REPAIR Medical History RIGHT FOOT ABSCESS Medical History Seizures Surgical History HYSTERECTOMY Surgical History CHOLECYSTECTOMY Surgical History Laser bilat. eye 2012 Surgical History Breast biopsy Surgical History R.Foot tx for tx of abcess 04/29 020 Surgical History hysterectomy Surgical History EGD Surgical History bilateral cataracts 08/14 Surgical History BILATERAL EYE LIFT 11/2016 Surgical History left eye injections 10/13 Surgical History RIGHT ACHILLES TENDON REPAIR Surgical History LEFT ANKLE FRACTURE W/ SURGICAL REPAIR 08/2020 Hospitalization History see above Hospitalization History HYPERTENSION, NA USEA, EMESIS COFFEE GROUNDS, LOW MAG, LOW K, LOW CALCIUM; 09/2020 Hospitalization History Back fracture[facility] 2020 Hospitalization History Se[facility]ures-[facility] 05/2020 [employer] Other [facility] general Narrative - Reported* Type Description Date Medical History Diabetes Medical History Hypertension Medical History Bezor Medical History Chronic pelvic pain Medical History CRF stage 3 Medical History LEFT ANKLE FRACTURE WITH SURGICA L REPAIR Medical History RIGHT FOOT ABSCESS Medical History Seizures Medical History INSULIN RESIDENTIAL USE Medical History HYPERLIPIDEMIA Medical History TYPE 2 DIABETES FARRUKH ITUS WITH DIABETIC CHRONIC KIDNEY DISEASE Surgical History HYSTERECTOMY Surgical History CHOLECYSTECTOMY Surgical History Laser bilat. eye 2012 Surgical History Breast biopsy Surgical History R.Foot tx for tx of abcess 04/29 020 Surgical History hysterectomy Surgical History EGD Surgical History bilateral cataracts 08/14 Surgical History BILATERAL EYE LIFT 11/2016 Surgical History left eye injections 10/13 Surgical History RIGHT ACHILLES TENDON REPAIR Surgical History LEFT ANKLE FRACTURE W/ SURGICAL REPAIR 08/2020 Hospitalization History see above Hospitalization History HYPERTENSION, NA USEA, EMESIS COFFEE GROUNDS, LOW MAG, LOW K, LOW CALCIUM; 09/2020 Hospitalization History Back fracture[facility] 2020 Hospitalization History Se[facility]ures-[facility] 05/2020 [employer] Other History general Narrative - Reported* Type Description Date Medical History Diabetes Medical History Hypertension Medical History Bezor Medical History Chronic pelvic pain Medical History CRF stage 3 Medical History LEFT ANKLE FRACTURE WITH SURGICA L REPAIR Medical History RIGHT FOOT ABSCESS Medical History Seizures Medical History INSULIN HAM STRIPPER USE Medical History HYPERLIPIDEMIA Medical History TYPE 2 DIABETES FARRUKH ITUS WITH DIABETIC CHRONIC KIDNEY DISEASE Medical History LEFT WRIST AND RIGHT UPPER ARM FRACTURES IN NOVEMBER 2022 DUE TO FALL. Surgical History HYSTERECTOMY Surgical History CHOLECYSTECTOMY Surgical History Laser bilat. eye 2012 Surgical History Breast biopsy Surgical History R.Foot tx for tx of abcess 04/29 020 Surgical History hysterectomy Surgical History EGD Surgical History bilateral cataracts 08/14 Surgical History BILATERAL EYE LIFT 11/2016 Surgical History left eye injections 10/13 Surgical History RIGHT ACHILLES TENDON REPAIR Surgical History LEFT ANKLE FRACTURE W/ SURGICAL REPAIR 08/2020 Hospitalization History see above Hospitalization History HYPERTENSION, NA USEA, EMESIS COFFEE GROUNDS, LOW MAG, LOW K, LOW CALCIUM; 09/2020 Hospitalization History Back fracture-[facility] 2020 Hospitalization History [facility]ures-[facility] 05/2020 [employer] Other Summary Purpose Family History No Family History Records FoundNo Family History Records FoundNo Family History Records FoundNo Family History Records FoundNo Family History Records FoundNo Family History Records Found Advance Directives Documents on File Type Date Recorded Patient [employer] Expl anation Advance Directives and Living Will Power of Dressmaker Or Tailor Assessments Diagnosis 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 (HCC) Additional Source Comments INFORMATION SOURCE (unrecogn ized section and content) DATE CREATED AUTHOR 12/22/2017 [facility] DATE CREATED AUTHOR AUTHOR'S ORGANIZ ATION 01/24/2018 [facility] DATE CREATED AUTHOR AUTHOR'S ORGANIZ ATION 09/14/2019 [facility] DATE CREATED AUTHOR AUTHOR'S ORGANIZ ATION 05/11/2022 [facility] DATE CREATED AUTHOR AUTHOR'S ORGANIZ ATION 11/11/2022 [facility] DATE CREATED AUTHOR AUTHOR'S ORGANIZ ATION 05/08/2023 [facility] Reason for Visit (unrecogniz ed section and content) TKM Refill Status Reason Specialty Diagnoses / Procedures Referre d By Contact Referred To Contact Diagnoses Vitreous hemorrhage (HCC) VITREOUS HEMORRAGE Procedures AK VITRECTOMY,MECHANICAL AK VITRECTOMY PARS PLANA REMOVE PRERETINAL MEMBRANE VITRECTOMY 25 GAUGE Castillo Bang MD [address], [address] [place] [address] [facility] FOR RECORDS PERTAINING TO PATIENTS WHO ARE OR HAVE BEEN ENROLLED IN A CHEMICAL DEPENDENCY/SUBSTANCEABUSE PROGRAM, SOME INFORMATION MAY BE OMITTED. This clinical summary was aggregated from multiple sources. Caution should be exercised in using it in the provision of clinical care. This summary normalizes information from multiple sources, and as a consequence, information in this document may materially change the coding, format and clinical context of patient data. In addition, data may be omitted in some cases. CLINICAL DECISIONS SHOULD BE BASED ON THE PRIMARY CLINICAL RECORDS. [facility]. provides no warranty or guarantee of the accuracy or completeness of information in this document.
[2023-07-15 11:34] LABS: Basophils Percent Auto 0.4 % (0.2-2.0); Eosinophils Absolute Auto 0.3 10^3/uL (0.0-0.7); Eosinophils Percent Auto 2.8 % (0.9-7.0); Hematocrit 33.8 % (36.0-48.0); Hemoglobin 11.1 g/dL (12.0-16.0); Immature Granulocytes Abs Auto 0.04 10^3/uL (0.00-0.03); Immature Granulocytes Pct Auto 0.4 % (0.0-0.5); Lymphocytes Absolute Auto 2.1 10^3/uL (1.2-3.8); Lymphocytes Percent Auto 24.1 % (20.5-60.0); Mean Corpuscular HGB Conc 32.8 g/dL (29.9-35.2); Mean Corpuscular Hemoglobin 26.7 pg (26.7-34.0); Mean Corpuscular Volume 81.4 fL (81.0-99.0); Mean Platelet Volume 10.1 fL (9.5-13.5); Monocytes Absolute Auto 0.6 10^3/uL (0.3-0.8); Monocytes Percent Auto 7.1 % (1.7-12.0); Neutrophils Absolute Auto 5.8 10^3/uL (1.4-6.5); Neutrophils Percent Auto 65.2 % (43.0-75.0); Platelet Count 294 10^3/uL (150-450); Red Blood Count 4.15 10^6/uL (4.20-5.40); Red Cell Distribution Width 13.4 % (11.0-15.0); White Blood Count 8.9 10^3/uL (4.0-11.0)
[2023-07-15 11:45] LABS: Alanine Aminotransferase 16 U/L (14-59); Albumin Globulin Ratio 0.6; Albumin Level 2.9 g/dL (3.4-5.0); Alkaline Phosphatase 118 U/L (46-116); Anion Gap 15.2; Aspartate Amino Transferase 10 U/L (15-37); BUN Creatinine Ratio 15.3; Bilirubin Total 0.2 mg/dL (0.2-1.0); Calcium 9.4 mg/dL (8.5-10.1); Carbon Dioxide 25.6 mmol/L (21.0-32.0); Chloride 101 mmol/L (98-107); Estimated GFR (African America 28 (>=60); Estimated GFR (Non-African Ame 23 (>=60); Globulin 4.9 g/dL; Glucose 197 mg/dL (74-106); Potassium 3.8 mmol/L (3.5-5.1); Sodium 138 mmol/L (136-145); Total Protein 7.8 g/dL (6.4-8.2)
--- NOTE | 2023-07-15 12:15 | ED.DIZZY1 ---
HPI - Dizziness General Chief Complaint: Dizziness Stated Complaint: DIZZINESS Time Seen by Provider: 07/15/23 11:00 Source: patient Mode of arrival: ambulance Limitations: no limitations History of Present Illness HPI Narrative: Patient sent over from her PCP's office to be evaluated for dizziness. She said that the dizziness started about a week ago when she also had sinus congestion, nasal drainage and cough. She took Flonase to help with some of the nasal symptoms but her illness has been steady for the last week. She admitted to chest congestion, occasional palpitations and wheezing at night. No fever or chills. No vomiting or diarrhea. Related Data Home Medications Medication Instructions Recorded Confirmed amlodipine 5 mg tablet 10 mg PO DAILY 04/08/23 07/15/23 carvedilol 25 mg tablet 25 mg PO BID 04/08/23 07/15/23 dapagliflozin propanediol 10 mg 10 mg PO DAILY 04/08/23 07/15/23 tablet (Farxiga) empagliflozin 10 mg tablet 10 mg PO DAILY 04/08/23 07/15/23 (Jardiance) fluticasone propionate 50 1 spray intranasal Q12H 04/08/23 04/08/23 mcg/actuation nasal spray,suspension hydralazine 25 mg tablet 25 mg PO TID 04/08/23 07/15/23 hydrochlorothiazide 25 mg tablet 25 mg PO DAILY 04/08/23 07/15/23 insulin glargine 100 unit/mL (3 1 unit subcut DAILY 04/08/23 07/15/23 mL) subcutaneous pen (Lantus Solostar U-100 Insulin) insulin lispro 100 unit/mL 1 sliding scale dose subcut DAILY 04/08/23 07/15/23 subcutaneous pen (Humalog KwikPen (U-100) Insulin) lacosamide 100 mg tablet 100 mg PO BID 04/08/23 07/15/23 levetiracetam 500 mg tablet 500 mg PO DAILY 04/08/23 07/15/23 levetiracetam 750 mg tablet 750 mg PO Q12H 04/08/23 07/15/23 losartan 25 mg tablet 25 mg PO DAILY 04/08/23 07/15/23 paroxetine HCl 40 mg tablet 40 mg PO DAILY 04/08/23 07/15/23 potassium chloride 20 mEq 20 meq PO BID 04/08/23 07/15/23 tablet,extended release(part/cryst) zolpidem 10 mg tablet 10 mg PO DAILY 04/08/23 07/15/23 Previous Rx's Medication Instructions Recorded albuterol sulfate 90 mcg/actuation 1 inh inhalation Q6H PRN shortness 07/15/23 aerosol inhaler of breath or wheezing #8.5 grams txinwpnnwknyhoz-cjinnjuifudnrve-HO 5 ml PO Q6H PRN sinus symptoms 07/15/23 2 mg-30 mg-10 mg/5 mL oral syrup #118 mL (Bromfed DM) meclizine 25 mg tablet 25 mg PO TID PRN dizziness #30 tabs 07/15/23 Allergies Allergy/AdvReac Type Severity Reaction Status Date / Time meperidine [From Demerol] Allergy Severe Verified 04/08/23 16:23 morphine Allergy Severe Verified 04/08/23 16:23 tylenol 3 Allergy Severe Uncoded 04/08/23 16:23 PFSH PFSH Social History Smoking status: Former smoker Exam Narrative Exam Narrative: Nurses notes and vital signs reviewed and patient is not hypoxic. afebrile General: Well-appearing and in no apparent distress. Skin: Warm, dry, no pallor noted. No rash. Head: Normocephalic, atraumatic. Neck: Supple, non-tender. No cervical lymphadenopathy. No meningismus. Eye: Pupils are equal, round and EOMI. No scleral icterus. Ears, Nose, Mouth, and Throat: TM are clear, mild posterior oropharynx erythema, mild nasal mucosal hypertrophy, uvula is mid-line. Oral mucosa is moist. She has some sinus tenderness to palpation. Cardiovascular: Regular Rate and Rhythm without murmur, gallop or rub. Respiratory: No accessory muscle use or respiratory distress. Lungs are clear to auscultation, no wheezing, rales or rhonchi Musculoskeletal: normal ROM, no lower extremity edema/swelling GI: Abdomen is soft, non-distended. Normal bowel sounds. No tenderness to palpation. No rebound, guarding, or rigidity noted. Neurological: A&O x4. No cranial nerve dysfunction observed. No truncal ataxia. Moves all extremities. Sensation intact. Psychiatric: Cooperative and interactive. Normal mood and affect. Constitutional Vital Signs, click to edit/add: Last Vital Signs Temp 98.6 F 07/15/23 10:52 Pulse 74 07/15/23 10:52 Resp 16 07/15/23 10:52 BP 153/88 H 07/15/23 10:52 Pulse Ox 94 L 07/15/23 10:52 O2 Del Method Room Air 07/15/23 10:52 Course Vital Signs Vital signs: Vital Signs Temperature 98.6 F 07/15/23 10:52 Pulse Rate 74 07/15/23 10:52 Respiratory Rate 16 07/15/23 10:52 Blood Pressure 153/88 H 07/15/23 10:52 Pulse Oximetry 94 L 07/15/23 10:52 Oxygen Delivery Method Room Air 07/15/23 10:52 Temperature 98.6 F 07/15/23 10:52 Pulse Rate 74 07/15/23 10:52 Respiratory Rate 16 07/15/23 10:52 Blood Pressure 153/88 H 07/15/23 10:52 Pulse Oximetry 94 L 07/15/23 10:52 Oxygen Delivery Method Room Air 07/15/23 10:52 MDM - Dizziness MDM Narrative Medical decision making narrative: Patient was placed on court recording monitor and EKG obtained. Blood drawn and sent for evaluation. She was ordered to receive normal saline IV fluid and IV Zofran. Her BUN and creatinine were mildly elevated above baseline. The remainder of her labs were negative or unremarkable. She felt better after receiving some normal saline IV fluid. She was also given oral meclizine after the workup was completed. EKG showed some pulmonary disease pattern but she denied any history of asthma or COPD. I encouraged her to follow-up with her primary care physician since she has experienced some wheezing in the past. I discharged her home with prescriptions for meclizine, albuterol MDI and medicine for cough. ED return if she worsens. Otherwise she can see her primary care physician for follow-up. Lab Data Attestation: I reviewed the patient's lab results. Labs: Lab Results 07/15/23 Range/Units 11:20 WBC 8.9 (4.0-11.0) 10^3/uL RBC 4.15 L (4.20-5.40) 10^6/uL Hgb 11.1 L (12.0-16.0) g/dL Hct 33.8 L (36.0-48.0) % MCV 81.4 (81.0-99.0) fL MCH 26.7 (26.7-34.0) pg MCHC 32.8 (29.9-35.2) g/dL RDW 13.4 (11.0-15.0) % Plt Count 294 (150-450) 10^3/uL MPV 10.1 (9.5-13.5) fL Neut % (Auto) 65.2 (43.0-75.0) % Lymph % (Auto) 24.1 (20.5-60.0) % [place] % (Auto) 7.1 (1.7-12.0) % Eos % (Auto) 2.8 (0.9-7.0) % Baso % (Auto) 0.4 (0.2-2.0) % Neut # (Auto) 5.8 (1.4-6.5) 10^3/uL Lymph # (Auto) 2.1 (1.2-3.8) 10^3/uL [place] # (Auto) 0.6 (0.3-0.8) 10^3/uL Eos # (Auto) 0.3 (0.0-0.7) 10^3/uL Baso # (Auto) 0.0 (0.0-0.1) 10^3/uL Abs Immat Gran (auto) 0.04 H (0.00-0.03) 10^3/uL Imm/Tot Granulo (auto) 0.4 (0.0-0.5) % Sodium 138 (136-145) mmol/L Potassium 3.8 (3.5-5.1) mmol/L Chloride 101 (98-107) mmol/L Carbon Dioxide 25.6 (21.0-32.0) mmol/L Anion Gap 15.2 BUN 33.0 H (7.0-18.0) mg/dL Creatinine 2.15 H (0.55-1.02) mg/dL Est GFR ( Amer) 28 L (>=60) Est GFR (Non-Af Amer) 23 L (>=60) BUN/Creatinine Ratio 15.3 Glucose 197 H (74-106) mg/dL Calcium 9.4 (8.5-10.1) mg/dL Total Bilirubin 0.2 (0.2-1.0) mg/dL AST 10 L (15-37) U/L ALT 16 (14-59) U/L Alkaline Phosphatase 118 H (46-116) U/L Total Protein 7.8 (6.4-8.2) g/dL Albumin 2.9 L (3.4-5.0) g/dL Globulin 4.9 g/dL Albumin/Globulin Ratio 0.6 ECG Data Attestation: I personally reviewed and interpreted this ECG as follows: Interpretation: EKG interpretation: Emergency Department physician interpretation. Normal sinus rhythm at 72bpm. Indeterminate axis. RVC delay - RSR V1/V2, possibly pulmonary disease pattern. No ST segment elevation or depression. Discharge Plan Discharge Chief Complaint: Dizziness Clinical Impression: Dizziness, URI (upper respiratory infection) Time of Disposition Decision: 12:20 Prescriptions / Home Meds: New albuterol sulfate 90 mcg/actuation HFA aerosol inhaler 1 inh inhalation Q6H PRN (Reason: shortness of breath or wheezing) Qty: 8.5 0RF meclizine 25 mg tablet 25 mg PO TID PRN (Reason: dizziness) Qty: 30 0RF gjlegrwybytdsrw-pnldhtmws-QO [Bromfed DM] 2-30-10 mg/5 mL syrup 5 ml PO Q6H PRN (Reason: sinus symptoms) Qty: 118 0RF No Action amlodipine 5 mg tablet 10 mg PO DAILY carvedilol 25 mg tablet 25 mg PO BID Farxiga 10 mg tablet 10 mg PO DAILY Jardiance 10 mg tablet 10 mg PO DAILY fluticasone propionate 50 mcg/actuation spray,suspension 1 spray INTRANASAL Q12H hydralazine 25 mg tablet 25 mg PO TID hydrochlorothiazide 25 mg tablet 25 mg PO DAILY insulin glargine [Lantus Solostar U-100 Insulin] 100 unit/mL (3 mL) insulin pen 1 unit SUBCUT DAILY insulin lispro [Humalog KwikPen Insulin] 100 unit/mL insulin pen 1 sliding scale dose SUBCUT DAILY lacosamide 100 mg tablet 100 mg PO BID levetiracetam 500 mg tablet 500 mg PO DAILY levetiracetam 750 mg tablet 750 mg PO Q12H losartan 25 mg tablet 25 mg PO DAILY paroxetine HCl 40 mg tablet 40 mg PO DAILY potassium chloride 20 mEq tablet,ER particles/crystals 20 meq PO BID zolpidem 10 mg tablet 10 mg PO DAILY Instructions: Upper Respiratory Infection (ED), Dizziness (ED) Stand Alone Forms: Portal Instructions Referrals: Christophe Mayfield MD [Physician] - As soon as possible
[2023-07-15] MEDS: MECLIZINE HCL 12.5 MG TABLET 25 MG PO (12:26)
== END 2023-07-15 12:39 | disposition home or self-care (01) ==
PROVIDERS: Emergency Provider Emergency Medicine
DX: R42 Dizziness and giddiness (principal); J06.9 Acute upper respiratory infection, unspecified; Z79.899 Other long term (current) drug therapy; Z79.4 Long term (current) use of insulin; Z87.891 Personal history of nicotine dependence
CPT/HCPCS: 36415; 80053; 85025; 93005; 99284; J2405

== ENCOUNTER 2023-08-03 10:40 | Outpatient (OUT) | payer MEDICARE, MEDICAID, SELFPAY ==
--- OUTSIDE RECORDS SUMMARY | 2023-08-03 10:51 | XMS_ITS | CCD ---
Author Name Unknown Address [address] [place] [address] Organization [facility] Care Team Providers Care Strategic Partner Development Manager Name Role Phone GUTIERREZ, ALAYNA Unavailable Unavailable GUTIERREZ, ALAYNA Unavailable Unavailable GUTIERREZ, ALAYNA Unavailable Unavailable GUTIERREZ, ALAYNA Unavailable Unavailable VIRGEN, MARLA Unavailable Unavailable VIRGEN, MARLA Unavailable Unavailable VIRGEN, MARLA Unavailable Unavailable VIRGEN, MARLA Unavailable Unavailable VIRGEN, MARLA Unavailable Unavailable BABIUCH, BRITTANY Unavailable Unavailable MARTIR BANG Admitting Unavailable MARTIR BANG Attending Unavailable CHRISTOPHE IRWIN Primary Care Unavaillee e Christophe Irwin Primary Care Provider [phone] Nancy Stevens Unavailable Fadumo Chau Unavailable PROVIDER, UNKNOWN Attending Unavailable PROVIDER, UNKNOWN Admitting Unavailable ISABELLA KELLY Attending Unavailable NADEREAdriano, DR CHRISTOPHE Redmond Primary Care Unavailable LETICIAISABELLA Admitting Unavailable LETICIA, ISABELLA Admitting Unavailable LETICIAISABELLA OLIVER Attending Unavailable NADERER, DR CHRISTOPHE Redmond Primary Care Unavailable NADERER, DR CHRISTOPHE Redmond Primary Care Unavailable MARIONANDERMONET Attending Unavailable HIGHLANDERMONET Admitting Unavailable HIGHLANDER, MONET Jameson Attending Unavailable NADERER, DR CHRISTOPHE Redmond Primary Care Unavailable HIGHLANDERMONET Admitting Unavailable NADERER, DR CHRISTOPHE Redmond Primary Care Unavailable HIGHLANDER, MONET Jameson Attending Unavailable HIGHLANDER, PETER D Admitting Unavailable NADERER, DR CHRISTOPHE Redmond Primary Care Unavailable MONET MATA Attending Unavailable HIGHLMONET ONOFRE Admitting Unavailable NADERER, DR CHRISTOPHE Redmond Primary Care Unavailable MONET MATA Attending Unavailable HIGHLANDERMONET Admitting Unavailable LETICIA, ISABELLA Admitting Unavailable LETICIA, ISABELLA Attending Unavailable AIDEE, DR AMANDA Oh Consulting Unavailable NADERER, DR CHRISTOPHE Redmond Primary Care Unavailable LETICIA, ISABELLA Consulting Unavailable ZIEBER, DR AMANDA Oh Consulting Unavailable NADERER, DR CHRISTOPHE Redmond Primary Care Unavailable HIGHLANDER, MONET Jameson Attending Unavailable HIGHLANDER, MONET Jameson Admitting Unavailable HIGHLANDER, MONET Jameson Consulting Unavailable ZIEBER, DR AMANDA Oh Consulting Unavailable NADERER, DR CHRISTOPHE Redmond Primary Care Unavailable HIGHLANDER, MONET Jameson Attending Unavailable HIGHLANDER, PETER Gisell Admitting Unavailable HIGHLANDER, MONET Jameson Consulting Unavailable NADERER, DR CHRISTOPHE Redmond Primary Care Unavailable HIGHLANDER, MONET Jameson Attending Unavailable HIGHLANDER, PETER D Admitting Unavailable Mapus, Ton K Admitting Unavailable Mapus, Ton K Attending Unavailable Roney Sahu Primary Care Unavailable NADERER, CHRISTOPHE Primary Care Unavailable ANDREW SHARIF Attending Unavailable ILANA, EHAD Consulting Unavailable POTHIREDDY, HELEN P Admitting Unavailable ANYI ADAME Attending Unavailable ANYI ADAME Referring Unavailable NADPEDRO, CHRISTOPHE Primary Care Unavailable ANDREW SHARIF Attending Unavailable ANDREW SHARIF Referring Unavailable NADERER, CHRISTOPHE Primary Care Unavailable ANDREW SHARIF Attending Unavailable ANDREW SHARIF Referring Unavailable NADERER, CHRISTOPHE Primary Care Unavailable ANDREW SHARIF Attending Unavailable ANDREW SHARIF Referring Unavailable NADEREAdriano, CHRISTOPHE Primary Care Unavailable ANYI ADAME Attending Unavailable ANYI ADAME Referring Unavailable NADPEDRO, CHRISTOPHE Primary Care Unavailable PATRICIA HAWKINS Attending Unavailable PATRICIA HAWKINS Referring Unavailable NADERER, CHRISTOPHE Primary Care Unavailable Christophe Irwin MD Primary Care Provider CHRISTOPHE IRWIN Attending Unavailable Allergies Allergy Classification Reported Allergen(s) Allergy Type Date of Onset Reaction(s) Facility (3 sources) meperidine; Translations: [MEPERIDINE (PF)] Drug Allergy 01-31-20 14 [facility] (20 sources) morphine; Translations: [MORPHINE] Drug Allergy 01-31-20 14 Other (See Comments), Anaphylaxis, Unknown, Other [facility] (20 sources) Meperidine; Translations: [MEPERIDINE] Drug Allergy 01-31-20 14 Other (See Comments), Anaphylaxis, Unknown [place], [place] (2 sources) Sertraline; Translations: [SERTRALINE HCL] [facility] [place] [place] [facility] Other Propensity to adverse reactions 09-05-19 Other (See Comments) [place] (20 sources) Acetaminophen Drug Allergy Unknown [facility] [employer] Other (1 source) Meperidine Drug Allergy 03-06-20 15 [facility] Repository (1 source) Sertraline Drug Allergy 05-11-20 [facility] Repository (1 source) Tylenol-Codeine #3 Drug allergy (disorder) 05-11-20 [facility] Repository (4 sources) dulaglutide Drug Allergy g/i [facility] [employer] Other (4 sources) semaglutide Drug Allergy g/i s/e [employer] [employer] Other (5 sources) Acetaminophen / Codeine; Translations: [ACETAMINOPHEN-CO DEINE] Drug Allergy 08-13-19 18 Shortness of breath [facility] Repository (3 sources) Meperidine Drug Allergy 12-15-19 23 Unknown [facility] (3 sources) Sertraline Drug Allergy 09-05-19 [facility] Medications Current Medications Medication Drug Class(es) Dates [...] bedtime Orally Once a day Active amLODIPine 5 mg oral tablet (11 sources) Dihydropyridine Calcium Channel Ajay Start: 023 take 1 tablet by mouth in the morning amLODIPine (Norvasc) 5 MG tablet Take 5 mg by mouth in the morning and 5 mg in the evening. 0 11/02/2022 Active Start: 02-07-2018 take 1 tablet by ewelina th once daily amLODIPine (NORVASC) 10 MG tablet Take 10 mg by mouth daily 0 02/07/2018 Active ascorbic acid 250 mg chewabl e tablet (5 sources) Vitamin C ascorbic acid (V itamin C) 250 MG chewable tablet Chew 1 tablet in the morning and 1 tablet in the evening. 0 Active Vitamin C 500 MG as directed Orally Active atorvastatin 40 mg oral tablet (7 sources) HMG-CoA Reductase Inhibitor take 1 tablet by mouth in the morning atorvastatin (Lipitor) 40 MG tablet Take 40 mg by mouth in the morning. 0 Active take 1 tablet by ewelina th every twenty-four hours Atorvastatin Calcium 80 MG 1 tablet Oral ly Once a day Active Calcium 500-2.5 MG-MCG [...] 0.028 meq/ml injectable solution (1 source) Start: 09-07-19 20 lactated ringers infusion carvedilol 25 mg oral tablet (20 sources) alpha-Adrenergi c Ajay, beta-Adrenergic Ajay Start: 11-03-19 23 take 1 tablet by mouth in the morning carvedilol (Coreg) 25 MG tablet Take 25 mg by mouth in the morning and 25 mg in the evening. Take with meals. 0 11/02/2022 Active cholecalciferol 0.125 mg oral tablet (20 sources) Vitamin D Start: 08-24-19 23 take 1 tablet by mouth in the morning cholecalciferol (D3-5) 5,000 Units tablet Take 5,000 Units by mouth in the morning. 0 08/24/2022 Active Cholecalciferol 25 MCG (1000 UT) 1 capsule Orally Active Cholecalciferol 1.25 MG (19379 UT) 1 capsule Orally Active clopidogrel 75 mg oral tablet (2 sources) P2Y12 Platelet Inhibitor take 1 tablet by mouth in the morning clopidogrel (Plavix) 75 MG tablet Take 75 mg by mouth in the morning. 0 Active dapagliflozin 10 mg oral tablet (3 sources) Sodium-Glucose Cotransporter 2 Inhibitor take 10 mg by mouth in the morning dapagliflozin (Farxiga) 10 MG Take 10 mg by mouth in the morning. 0 Active diclofenac sodium 0.01 mg/mg topical gel [...] by mouth every week Ergocalciferol 1.25 MG (89589 UT) 1 capsule Orally weekly Jan, Active [...] mg oral tablet (20 sources) Loop Diuretic Start: 08-24-2022 take 1 tablet by mouth in the morning furosemide (Lasix) 20 MG tablet Take 20 mg by mouth in the morning. 0 08/24/2022 Active furosemide (Lasi x) 20 MG tablet Take 25 mg by mouth in the morning. 0 Active take 25 mg by mouth once daily F urosemide (LASIX PO) Take 25 mg by mouth daily 0 Active hydrALAZINE hydrochloride 25 mg oral tablet (3 sources) Arteriolar Vasodilator Start: 11-03-2022 hydrALAZINE (Apresoline) 25 MG tablet Take 25 mg by mouth in the morning and 25 mg at noon and 25 mg in the evening. 0 11/03/2022 Active 3 ml insulin glargine 100 unt/ml pen injector (20 sources) Insulin Analog Start: 11-02-2022 inject 40 [IU] by subcutaneous injection in the morning Insulin Glargine Solostar 100 UNIT/ML solution pen-injector Inject 40 Units under the skin in the morning and 40 Units in the evening. 0 11/02/2022 Active inject 80 [IU] by causey bcutaneous injection in the morning insulin glargine (Lantus) 100 UNIT/ML injection Inject 80 Units under the skin in the morning. 0 Active insulin glargine (Lantus SoloStar) 100 UNIT/ML pen uad Subcutaneous 0 Active insulin glargine (LANTUS) 100 UNIT/ML injection vial Inject 80 Units into the skin every morning 0 Active insulin lispro 100 unt/ml injectable solution (20 sources) Insulin Analog Insulin Lispro 1 00 UNIT/ML solution Inject 50 Units under the skin in the morning and 50 Units at noon and 50 Units in the evening. Inject with meals. 0 Active HumaLOG KwikPen 100 UNIT/ML 9,12,15,18 units ac [...] 6 x daily for 90 days Active lacosamide 100 mg oral tablet (3 sources) Anti-epileptic Agent Start: 3 take 1 tablet by mouth in the morning lacosamide (Vimpat) 100 MG tablet Take 100 mg by mouth in the morning and 100 mg in the evening. 0 12/14/2022 Active levETIRAcetam 750 mg oral tablet (20 sources) Start: 3 take 1 tablet by mouth in the morning levETIRAcetam (Keppra) 750 MG tablet Take 750 mg by mouth in the morning and 750 mg in the evening. 0 11/02/2022 Active take 1 tablet by ewelina th every twelve hours levETIRAcetam 500 MG 1 tablet Orally tess ry 12 hrs Active losartan potassium 100 mg oral tablet (20 sources) Angiotensin 2 Receptor Ajay Start: 11-02-2022 take 1 tablet by mouth in the morning losartan (Cozaar) 100 MG tablet Take 100 mg by mouth in the morning. 0 11/02/2022 Active take 1 tablet by ewelina th [...] twenty-four hours take 1 capsule by mo [facility] every twenty-four hours Omeprazole 20 MG 1 [...] for 365 days October, Active PARoxetine hydrochloride 40 mg oral tablet (20 sources) Serotonin Reuptake Inhibitor take 1 tablet by mouth in the morning PARoxetine (Paxil) 40 MG tablet Take 40 mg by mouth in the morning. 0 Active take 1 tablet by ewelina th every twenty-four hours PARoxetine HCl 20 MG 1 tablet in the morning Orally Once a day Active microencapsulated potassium chloride 20 meq extended release oral tablet (20 sources) take 1 tablet by mouth every twenty-four hours Klor-Con M20 20 MEQ 1 tablet with food Orally Once a day Active rosuvastatin calcium 10 mg oral tablet (20 sources) HMG-CoA Reductase Inhibitor End: 024 take 1 tablet by mouth in the morning rosuvastatin (Crestor) 10 MG tablet Take 10 mg by mouth in the morning. 0 07/30/2023 Discontinued 0.25 mg, 0.5 mg dose 1.5 ml [...] on an empty stomach Orally qid Active thiamine 100 mg oral tablet (3 sources) Start: 11-03-2022 take 1 tablet by mouth in the morning thiamine (Vitamin B-1) 100 MG tablet Take 100 mg by mouth in the morning. 0 11/03/2022 Active vitamin b12 1 mg oral tablet (3 sources) Vitamin B12 Start: 11-02-2022 take 1 tablet by mouth in the morning cyanocobalamin (Vitamin B-12) 1000 MCG tablet Take 1,000 mcg by mouth in the morning. 0 11/02/2022 Active Vitamin C 500 MG (18 sources) Vitamin C 500 MG as directed Orally Active zolpidem tartrate 10 mg oral tablet (3 sources) gamma-Aminobutyric Acid-ergic Agonist Start: 06-23-2023 zolpidem (Ambien) 10 MG tablet Indications: Primary insomnia Take 1 tablet (10 mg) by mouth as needed at bedtime for sleep 30 tablet 1 06/23/2023 Active Completed/Discontinued Medications Medication Drug Class(es) Dates [...] alpha-1 Adrenergic Agonist Start: 09-07-19 End: 09-07-19 phenylephrine (ANA-SYNEPHRINE) 10 % ophthalmic solution 1 drop Potassium (7 sources) Potassium Not-Ta anna Potassium Active tropicamide 10 mg/ml ophthalmic solution (1 source) Anticholinergic Start: 09-07-2019 End: 09-07-2019 tropicamide (MYDRIACYL) 1 % ophthalmic solution 1 drop Problems Active Problems Problem Classification Problem Date Documented Da te Episodic/Chronic Abdominal pain (20 sources) Abdominal pain; Translations: [Abdominal pain] Episodic Acquired foot deformities (5 sources) Flat foot [pes planus] (acquired), right foot; Translations: [Bunion] Onset: 09-10-2022 07-30-2023 Episodic Acute cerebrovascular disease (7 sources) Other cerebral infarction due to occlusion or stenosis of small artery; Translations: [Cerebral infarction due to embolism of unspecified middle cerebral artery] Onset: 07-14-2022 07-30-2023 Chronic Acute cerebrovascular disease (1 source) Acute cerebrovascular disease Onset: 07-23-2023 Administrative/social admission (3 sources) Dietary counseling and surveillance Onset: 07-17-2021 Resolved: 10-15-2021 Episodic Anal and rectal conditions (18 sources) Rectal pain; Translations: [Rectal pain] Episodic Anxiety disorders (3 sources) Generalized anxiety disorder; Translations: [Generalized anxiety disorder] Onset: 07-15-2023 07-15-2023 Chronic Chronic kidney disease (20 sources) Chronic kidney [...] [Hyperlipidemia, unspecified] Onset: 07-17-2021 Resolved: 10-15-2021 Chronic Epilepsy; convulsions (3 sources) Seizure; Translations: [Unspecified convulsions] Onset: 07-15-2023 07-15-2023 Episodic Essential hypertension (20 sources) Essential hypertension; Translations: [Essential (primary) hypertension] Onset: 07-17-2021 Resolved: 10-15-2021 Chronic Fluid and electrolyte disorders (3 sources) Hypokalemia; Translations: [Hypokalemia] Onset: 07-15-2023 07-15-2023 Episodic Fracture of lower limb (1 source) Displaced fracture of lateral malleolus of left fibula, subsequent encounter for closed fracture with delayed healing; Translations: [DSPL FX LM LT FIB SUB CLOS FX DLAY] Onset: 09-10-2022 Episodic Gastritis and duodenitis (3 sources) Superficial nonerosive nonspecific gastritis; Translations: [Chronic superficial gastritis without bleeding] Onset: 07-15-2023 07-15-2023 Chronic Hypertension with complications and secondary hypertension (2 sources) Hypertensive chronic kidney disease with stage 1 through stage 4 chronic kidney disease, or unspecified chronic kidney disease; Translations: [Hypertensive encephalopathy] Onset: 09-03-2022 Chronic Infective arthritis and osteomyelitis (except that caused by tuberculosis or sexually transmitted disease) (1 source) Other acute osteomyelitis, right ankle and foot; Translations: [OTH ACUTE OSTEOMYEL RT ANKLE FOOT] Onset: 11-10-2022 Chronic Mood disorders (3 sources) Recurrent major depressive episodes, mild ; Translations: [Major depressive disorder, recurrent, mild] Onset: 07-15-2023 07-15-2023 Chronic Nausea and vomiting (20 sources) Nausea and vomiting; Translations: [Nausea & vomiting] Episodic Noninfectious gastroenteritis (3 sources) Colitis; Translations: [Noninfective gastroenteritis and colitis, unspecified] Onset: 07-15-2023 07-15-2023 Episodic Nutritional deficiencies (20 sources) Vitamin D deficiency; Translations: [Vitamin D deficiency, unspecified] Chronic Open wounds of extremities (1 source) Unspecified open wound, right foot, initial encounter Episodic Osteoarthritis (3 sources) Osteoarthritis of joint of bilateral hands; Translations: [Primary osteoarthritis, right hand] Onset: 07-15-2023 07-15-2023 Chronic Other aftercare (4 sources) intermediate manager (current) use of insulin; Translations: [assisted (current) use of insulin] Onset: 11-01-2017 Resolved: 10-15-2021 Episodic Other aftercare (20 sources) Long-term current use of insulin; Translations: [assisted (current) use of insulin] Episodic Other bone disease and musculoskeletal deformities (3 sources) Osteopenia; Translations: [Other specified disorders of bone density and structure, right thigh] Onset: 07-15-2023 07-15-2023 Episodic Other connective tissue disease (1 source) Plantar fascial fibromatosis; Translations: [PLANTAR FASCIAL FIBROMATOSIS] Onset: 09-10-2022 Episodic Other connective tissue disease (1 source) Other symptoms and signs involving the musculoskeletal system; Translations: [Other symptoms and signs involving the musculoskeletal system] Onset: 07-24-2023 Episodic Other connective tissue disease (3 sources) Deformity of lower limb; Translations: [Contracture of muscle, unspecified lower leg] Onset: 07-15-2023 07-15-2023 Episodic Other endocrine disorders (20 sources) Nocturnal hypoglycemia due to diabetes mellitus; Translations: [Other hypoglycemia] Chronic Other gastrointestinal disorders (3 sources) Irritable bowel syndrome; Translations: [Mixed irritable bowel syndrome] Onset: 07-15-2023 07-15-2023 Chronic Other gastrointestinal disorders (18 sources) Dysphagia; [...] BODY REGION SEQ] Onset: 09-03-2022 Episodic Other nervous system disorders (1 source) Anesthesia of skin; Translations: [Anesthesia of skin] Onset: 07-23-2023 Episodic Other nutritional; endocrine; and metabolic disorders [...] mass index (BMI) 39.0-39.9, adult Chronic Other nutritional; endocrine; and metabolic disorders (3 sources) Hypomagnesemia; Translations: [Hypomagnesemia] Onset: 07-15-2023 07-15-2023 Chronic Other skin disorders (1 source) Nail dystrophy; Translations: [NAIL DYSTROPHY] Onset: 11-10-2022 Episodic Other skin disorders (1 source) Corns and callosities; Translations: [CORNS AND CALLOSITIES] Onset: 09-23-2022 Episodic Residual codes; unclassified (1 source) Localized edema; Translations: [LOCALIZED EDEMA] Onset: 11-10-2022 Episodic Residual codes; unclassified (3 sources) Edema of lower extremity; Translations: [Localized edema] Onset: 07-15-2023 07-15-2023 Episodic Skin and subcutaneous tissue infections (1 source) Cellulitis of right lower limb; Translations: [CELLULITIS OF RIGHT LOWER LIMB] Onset: 11-10-2022 Episodic Transient cerebral ischemia (1 source) Transient cerebral ischemic attack, unspecified; Translations: [Transient cerebral ischemic attack, unspecified] Onset: 07-23-2023 Chronic Unclassified (1 source) Type 2 diabetes mellitus with proliferative diabetic retinopathy with macular edema, bilateral; Translations: [Type 2 diabetes mellitus with proliferative diabetic retinopathy with macular edema, bilateral] Onset: 11-01-2017 Unclassified (1 source) CHRN KIDNEY DISEASE STG 3 UNSP; Translations: [CHRN KIDNEY DISEASE STG 3 UNSP] Onset: 09-03-2022 Unclassified (1 source) Numbness to Right Side Onset: 07-23-2023 Past or Other Problems Problem Classification Problem Date Documented Da te Episodic/Chronic Chronic kidney disease (1 source) Chronic kidney disease Malaise and fatigue (1 source) Weakness; Translations: [Weakness] Onset: 10-30-2022 Episodic Open wounds of extremities (1 source) Unspecified open wound of left lesser toe(s) without damage to nail, initial encounter; Translations: [UNS OP WND LT LSR TOE NO DMG NL INT] Onset: 07-03-2022 Episodic Other circulatory disease (1 source) Personal history of transient ischemic attack (TIA), and cerebral infarction without residual deficits; Translations: [Personal history of transient ischemic attack (TIA), and cerebral infarction without residual deficits] Onset: 11-02-2022 Episodic Other connective tissue disease (4 sources) [...] Test Name Value Interpretation Reference Range Facility CBC AND AUTO DIFFon 07-26-19 ABSOLUTE BASOPHIL 0.1 X10E9/L Normal 0.0-0.2 [facility] Comment on above: Performed By: #### C BCA, CMP, 41020-7, THYR #### [facility] ([id number]) [address] [place] [address] 29252 #### 97165-0, 2088-06 #### [facility] ([id number]) [address], [address] [place] [address] ABSOLUTE NEUTROPHIL 5.4 X10E9/L Normal 1.5-6.6 [facility] Comment on above: Performed By: #### C BCA, CMP, 93335-0, THYR #### [facility] ([id number]) [address] [place] [address] 53569 #### 52156-4, 2088-06 #### [facility] ([id number]) [address], [address] [place] [address] Basophils/100 WBC (Bld) 0.8 % Normal [facility] Comment on above: Performed By: #### C BCA, CMP, 29272-1, THYR #### [facility] ([id number]) [address] [place] [address] 09849 #### 18551-1, 2088-06 #### [facility] ([id number]) [address] [address], [address] [place] [address] Eosinophils (Bld) [#/Vol] 0.3 10*3/uL Normal 0.0-0.4 [facility] Comment on above: Performed By: #### C BCA, CMP, 43122-2, THYR #### [facility] ([id number]) [address] [place] [address]2950 #### 87237-4, 2088-06 #### [facility] ([id number]) [address] [address] [address], [address] [place] [address] Eosinophils/100 WBC (Bld) 3.7 % Normal [facility] Comment on above: Performed By: #### C MARQUES, CMP, 48963-4, THYR #### [facility] ([id number]) [address] [place] [address] 71662 #### 25030-0, 2088-06 #### [facility] ([id number]) [address] [facility] [address], [address] [place] [address] Erythrocyte distribution width (RBC) [Ratio] 14.6 % Normal 11.5-15.0 [facility] Comment on above: Performed By: #### C MARQUES, CMP, 60815-8, THYR #### [facility] ([id number]) [address] [place] [address] 71136 #### 97245-7, 2088-06 #### [facility] ([id number]) [address] [facility], [address] [place] [address] Hematocrit (Bld) [Volume fraction] 31.9 % Low 35-47 [facility] Comment on above: Performed By: #### Teresa MOHAN CMP, 80182-8, THYR #### [facility] ([id number]) [address] [place] [address] 71557 #### 53303-7, 2088-06 #### [facility] ([id number]) [address] [facility], [address] [place] [address] Hemoglobin (Bld) [Mass/Vol] 10.9 g/dL Low 11.7-15.5 [facility] Comment on above: Performed By: #### Teresa MOHAN, CMP, 17371-3, THYR #### [facility] ([id number]) [address] [place] [address] 49530 #### 40849-2, 2088-06 #### [facility] ([id number]) [address], [address] [place] [address] Lymphocytes (Bld) [#/Vol] 2.6 10*3/uL Normal 1.0-3.5 [facility] Comment on above: Performed By: #### C BCA, CMP, 72483-4, THYR #### [facility] ([id number]) [address] [place] [address] 64666 #### 24147-4, 2088-06 #### [facility] ([id number]) [address], [address] [place] [address] Lymphocytes/100 WBC (Bld) 28.6 % Normal [facility] Comment on above: Performed By: #### C BCA, CMP, 08615-3, THYR #### [facility] ([id number]) [address] [place] [address] 89111 #### 31553-2, 2088-06 #### [facility] ([id number]) [address], [address] [place] [address] MCH (RBC) [Entitic mass] 27.4 pg Normal 27-34 [facility] Comment on above: Performed By: #### Teresa BCA, CMP, 51947-1, THYR #### [facility] ([id number]) [address] [place] [address] 87266 #### 41330-4, 2088-06 #### [facility] ([id number]) [address], [address] [place] [address] MCHC (RBC) [Mass/Vol] 34.2 g/dL Normal 32-36 [facility] Comment on above: Performed By: #### C BCA, CMP, 35672-6, THYR #### [facility] ([id number]) [address] [place] [address] 63323 #### 04815-1, 2088-06 #### [facility] ([id number]) [address], [address] [place] [address] MCV (RBC) [Entitic vol] 80 fL Normal 80-100 [facility] Comment on above: Performed By: #### C BCA, CMP, 94031-7, THYR #### [facility] ([id number]) [address] [place] [address] 04164 #### 70848-2, 2088-06 #### [facility] ([id number]) [address], [address] [place] [address] Monocytes (Bld) [#/Vol] 0.8 10*3/uL Normal 0-0.9 [facility] Comment on above: Performed By: #### C MARQUES, CMP, 56794-2, THYR #### [facility] ([id number]) [address] [place] [address] 48011 #### 89530-5, 2088-06 #### [facility] ([id number]) [address], [address] [place] [address] Monocytes/100 WBC (Bld) 8.1 % Normal [facility] Comment on above: Performed By: #### C MARQUES, CMP, 04642-1, THYR #### [facility] ([id number]) [address] [place] [address] 51371 #### 22154-2, 2088-06 #### [facility] ([id number]) [address], [address] [place] [address] Neutrophils/100 WBC (Bld) 58.8 % Normal [facility] Comment on above: Performed By: #### C BCA, CMP, 64351-0, THYR #### [facility] ([id number]) [address] [place] [address] 30582 #### 80422-0, 2088-06 #### [facility] ([id number]) [address], [address] [place] [address] Platelet mean volume (Bld) [Entitic vol] 8.3 fL Normal 7-12 [facility] Comment on above: Performed By: #### C BCA, CMP, 09766-9, THYR #### [facility] ([id number]) [address] [place] [address] 65126 #### 54130-0, 2088-06 #### [facility] ([id number]) [address], [address] [place] [address] Platelets (Bld) [#/Vol] 271 10*3/uL Normal 150-450 [facility] Comment on above: Performed By: #### C BCA, CMP, 58469-0, THYR #### [facility] ([id number]) [address] [place] [address] 75072 #### 42719-7, 2088-06 #### [facility] ([id number]) [address], [address] [place] [address] RBC COUNT 3.98 X10E12/L Normal 3.80-5.20 [facility] Comment on above: Performed By: #### C BCA, CMP, 60330-9, THYR #### [facility] ([id number]) [address] [place] [address] 24719 #### 22723-1, 2088-06 #### [facility] ([id number]) [address], [address] [place] [address] WBC (Bld) [#/Vol] 9.2 10*3/uL Normal 4.0-11.0 [facility] Comment on above: Performed By: #### C BCA, CMP, 32710-7, THYR #### [facility] ([id number]) [address] [place] [address] 65642 #### 35089-4, 2088-06 #### [facility] ([id number]) [address] [place] [address], [address] [place] [address] COMPREHENSIVE METABOLIC PANE Ace 07-26-2023 Albumin [Mass/Vol] 3.2 g/dL Normal 3.2-5.3 [facility] Comment on above: Performed By: #### C BCA, CMP, 52264-9, THYR #### [facility] ([id number]) [address] [place] [address] 49071 #### 28340-6, 2088-06 #### [facility] ([id number]) [address] [place] [address], [address] [place] [address] ALP [Catalytic activity/Vol] 105 U/L Normal 39-130 [facility] Comment on above: Performed By: #### C BCA, CMP, 09938-9, THYR #### [facility] ([id number]) [address] [place] [address] 79433 #### 59028-6, 2088-06 #### [facility] ([id number]) [address] [place] [address], [address] [place] [address] ALT [Catalytic activity/Vol] 10 U/L Normal 0-31 [facility] Comment on above: Performed By: #### C BCA, CMP, 26819-7, THYR #### [facility] ([id number]) [address] [place] [address] 92874 #### 37374-3, 2088-06 #### [facility] ([id number]) [address] [place] [address], [address] [place] [address] Anion gap [Moles/Vol] 12 mmol/L Normal 5-15 [facility] Comment on above: Performed By: #### C BCA, CMP, 87202-4, THYR #### [facility] ([id number]) [address] [place] [address] 11572 #### 99854-6, 2088-06 #### [facility] ([id number]) [address], [address] [place] [address] AST [Catalytic activity/Vol] 14 U/L Normal 0-41 [facility] Comment on above: Performed By: #### C BCA, CMP, 95129-8, THYR #### [facility] ([id number]) [address] [place] [address] 53189 #### 72773-8, 2088-06 #### [facility] ([id number]) [address] [place] [address], [address] [place] [address] Bilirubin [Mass/Vol] 0.4 mg/dL Normal 0.3-1.2 [facility] Comment on above: Performed By: #### C BCA, CMP, 10496-4, THYR #### [facility] ([id number]) [address] [place] [address] 40043 #### 41232-3, 2088-06 #### [facility] ([id number]) [address] [place] [address], [address] [place] [address] Calcium [Mass/Vol] 9.0 mg/dL Normal 8.5-10.5 [facility] Comment on above: Performed By: #### C BCA, CMP, 04338-8, THYR #### [facility] ([id number]) [address] [place] [address] 30028 #### 69157-1, 2088-06 #### [facility] ([id number]) [address] [place] [address], [address] [place] [address] Chloride [Moles/Vol] 96 mmol/L Low 98-109 [facility] Comment on above: Performed By: #### C BCA, CMP, 98528-8, THYR #### [facility] ([id number]) [address] [place] [address] 22633 #### 52769-5, 2088-06 #### [facility] ([id number]) [address], [address] [place] [address] CO2 [Moles/Vol] 22 mmol/L Normal 22-32 [facility] Comment on above: Performed By: #### C BCA, CMP, 43843-1, THYR #### [facility] ([id number]) [address] [place] [address] 83491 #### 56353-7, 2088-06 #### [facility] ([id number]) [address], [address] [place] [address] Creatinine [Mass/Vol] 2.38 mg/dL High 0.40-1.00 [facility] Comment on above: Result Comment: METH OD TRACEABLE TO IDMS STANDARD Performed By: #### C MARQUES, CMP, 87548-4, THYR #### [facility] ([id number]) [address] [place] [address] 81021 #### 45928-0, 2088-06 #### [facility] ([id number]) [address], [address] [place] [address] GFR/1.73 sq M.predicted among non-blacks MDRD (S/P/Bld) [Vol rate/Area] 23 mL/min/{1.73_m2} Low >59 [facility] Comment on above: Result Comment: Reported eGFR is based on the CKD-EPI 2020 equation that does not use a race coefficient. Performed By: #### C BCA, CMP, 13340-9, THYR #### [facility] ([id number]) [address] [place] [address] 09369 #### 19120-4, 2088-06 #### [facility] ([id number]) [address], [address] [place] [address] Glucose [Mass/Vol] 116 mg/dL High 65-99 [facility] Comment on above: Performed By: #### C BCA, CMP, 60807-3, THYR #### [facility] ([id number]) [address] [place] [address] 03408 #### 56826-7, 2088-06 #### [facility] ([id number]) [address] [facility], [address] [place] [address] Potassium [Moles/Vol] 3.3 mmol/L Low 3.5-5.0 [facility] Comment on above: Performed By: #### C BCA, CMP, 42009-5, THYR #### [facility] ([id number]) [address] [place] [address] 41540 #### 62990-1, 2088-06 #### [facility] ([id number]) [address] [facility], [address] [place] [address] Protein [Mass/Vol] 7.0 g/dL Normal 6.0-8.0 [facility] Comment on above: Performed By: #### C BCA, CMP, 73106-5, THYR #### [facility] ([id number]) [address] [place] [address] 18829 #### 12467-4, 2088-06 #### [facility] ([id number]) [address], [address] [place] [address] Sodium [Moles/Vol] 130 mmol/L Low 134-146 [facility] Comment on above: Performed By: #### C BCA, CMP, 44657-5, THYR #### [facility] ([id number]) [address] [place] [address] 86415 #### 24087-7, 2088-06 #### [facility] ([id number]) [address], [address] [place] [address] Urea nitrogen [Mass/Vol] 43 mg/dL High 5-23 [facility] Comment on above: Performed By: #### C BCA, CMP, 64686-9, THYR #### [facility] ([id number]) [address] [place] [address] 62048 #### 47724-0, 2088-06 #### [facility] ([id number]) [address], [address] [place] [address] Glucose Glucometer (BldC) [M ass/Vol]on 07-26-2023 Glucose [Mass/Vol] 174 mg/dL High 65-99 [facility] MAGNESIUMon 07-26-2023 Magnesium [Mass/Vol] 1.9 mg/dL Normal 1.8-2.6 [facility] Comment on above: Performed By: #### C BCA, CMP, 31691-1, THYR #### [facility] ([id number]) [address] [place] [address] 93736 #### 46420-2, 2088-06 #### [facility] ([id number]) [address], [address] [place] [address] CBC AND AUTO DIFFon 07-25-19 24 ABSOLUTE BASOPHIL 0.1 X10E9/L Normal 0.0-0.2 [facility] Comment on above: Performed By: #### C BCA, CMP, 39397-8, THYR #### [facility] ([id number]) [address] [place] [address] 18394 #### 95912-8, 2088-06 #### [facility] ([id number]) [address], [address] [place] [address] ABSOLUTE NEUTROPHIL 6.6 X10E9/L Normal 1.5-6.6 [facility] Comment on above: Performed By: #### C BCA, CMP, 75997-9, THYR #### [facility] ([id number]) [address] [place] [address] 24293 #### 69197-4, 2088-06 #### [facility] ([id number]) [address], [address] [place] [address] Basophils/100 WBC (Bld) 0.7 % Normal [facility] Comment on above: Performed By: #### C BCA, CMP, 55028-0, THYR #### [facility] ([id number]) [address] [place] [address] 45134 #### 04952-1, 2088-06 #### [facility] ([id number]) [address], [address] [place] [address] Eosinophils (Bld) [#/Vol] 0.3 10*3/uL Normal 0.0-0.4 [facility] Comment on above: Performed By: #### C BCA, CMP, 52705-0, THYR #### [facility] ([id number]) [address] [place] [address] 20803 #### 98373-7, 2088-06 #### [facility] ([id number]) [address], [address] [place] [address] Eosinophils/100 WBC (Bld) 2.8 % Normal [facility] Comment on above: Performed By: #### C BCA, CMP, 44438-8, THYR #### [facility] ([id number]) [address] [place] [address] 49521 #### 46993-2, 2088-06 #### [facility] ([id number]) [address], [address] [place] [address] Erythrocyte distribution width (RBC) [Ratio] 14.4 % Normal 11.5-15.0 [facility] Comment on above: Performed By: #### C BCA, CMP, 31174-2, THYR #### [facility] ([id number]) [address] [place] [address] 83633 #### 74320-3, 2088-06 #### [facility] ([id number]) [address], [address] [place] [address] Hematocrit (Bld) [Volume fraction] 36.8 % Normal 35-47 [facility] Comment on above: Performed By: #### C BCA, CMP, 21387-7, THYR #### [facility] ([id number]) [address] [place] [address] 38010 #### 86351-9, 2088-06 #### [facility] ([id number]) [address] [facility], [address] [place] [address] Hemoglobin (Bld) [Mass/Vol] 12.5 g/dL Normal 11.7-15.5 [facility] Comment on above: Performed By: #### C BCA, CMP, 55722-1, THYR #### [facility] ([id number]) [address] [place] [address] 87952 #### 59328-1, 2088-06 #### [facility] ([id number]) [address] [facility], [address] [place] [address] Lymphocytes (Bld) [#/Vol] 2.1 10*3/uL Normal 1.0-3.5 [facility] Comment on above: Performed By: #### C BCA, CMP, 10682-4, THYR #### [facility] ([id number]) [address] [place] [address] 90898 #### 48640-7, 2088-06 #### [facility] ([id number]) [address], [address] [place] [address] Lymphocytes/100 WBC (Bld) 20.8 % Normal [facility] Comment on above: Performed By: #### C BCA CMP, 76580-3, THYR #### [facility] ([id number]) [address] [place] [address] 06475 #### 37125-6, 2088-06 #### [facility] ([id number]) [address] [facility], [address] [place] [address] MCH (RBC) [Entitic mass] 27.3 pg Normal 27-34 [facility] Comment on above: Performed By: #### C MARQUES CMP, 19081-5, THYR #### [facility] ([id number]) [address] [place] [address] 82851 #### 34144-4, 2088-06 #### [facility] ([id number]) [address] [facility], [address] [place] [address] MCHC (RBC) [Mass/Vol] 34.0 g/dL Normal 32-36 [facility] Comment on above: Performed By: #### Teresa BCA CMP, 35518-5, THYR #### [facility] ([id number]) [address] [place] [address] 96876 #### 22354-6, 2088-06 #### [facility] ([id number]) [address], [address] [place] [address] MCV (RBC) [Entitic vol] 80 fL Normal 80-100 [facility] Comment on above: Performed By: #### C BCA, CMP, 39661-1, THYR #### [facility] ([id number]) [address] [place] [address] 69023 #### 64350-3, 2088-06 #### [facility] ([id number]) [address], [address] [place] [address] Monocytes (Bld) [#/Vol] 0.9 10*3/uL Normal 0-0.9 [facility] Comment on above: Performed By: #### C BCA, CMP, 64699-6, THYR #### [facility] ([id number]) [address] [place] [address] 52036 #### 35720-0, 2088-06 #### [facility] ([id number]) [address] [facility], [address] [place] [address] Monocytes/100 WBC (Bld) 8.8 % Normal [facility] Comment on above: Performed By: #### C BCA, CMP, 83699-2, THYR #### [facility] ([id number]) [address] [place] [address] 46682 #### 37614-5, 2088-06 #### [facility] ([id number]) [address] [facility], [address] [place] [address] Neutrophils/100 WBC (Bld) 66.9 % Normal [facility] Comment on above: Performed By: #### C BCA, CMP, 61535-3, THYR #### [facility] ([id number]) [address] [place] [address] 63648 #### 83737-8, 2088-06 #### [facility] ([id number]) [address] [facility], [address] [place] [address] Platelet mean volume (Bld) [Entitic vol] 8.5 fL Normal 7-12 [facility] Comment on above: Performed By: #### C BCA, CMP, 06426-8, THYR #### [facility] ([id number]) [address] [place] [address] 66337 #### 24620-7, 2088-06 #### [facility] ([id number]) [address] [facility], [address] [place] [address] Platelets (Bld) [#/Vol] 248 10*3/uL Normal 150-450 [facility] Comment on above: Performed By: #### C BCA, CMP, 19836-8, THYR #### [facility] ([id number]) [address] [place] [address] 10145 #### 40784-8, 2088-06 #### [facility] ([id number]) [address], [address] [place] [address] RBC COUNT 4.58 X10E12/L Normal 3.80-5.20 [facility] Comment on above: Performed By: #### C BCA, CMP, 63580-1, THYR #### [facility] ([id number]) [address] [place] [address] 09258 #### 97702-0, 2088-06 #### [facility] ([id number]) [address], [address] [place] [address] WBC (Bld) [#/Vol] 9.9 10*3/uL Normal 4.0-11.0 [facility] Comment on above: Performed By: #### C BCA, CMP, 30005-5, THYR #### [facility] ([id number]) [address] [place] [address] 85984 #### 58486-1, 2088-06 #### [facility] ([id number]) [address] [place] [address], [address] [place] [address] COMPREHENSIVE METABOLIC PANE Ace 07-25-2023 Albumin [Mass/Vol] 3.7 g/dL Normal 3.2-5.3 [facility] Comment on above: Performed By: #### C BCA, CMP, 48091-1, THYR #### [facility] ([id number]) [address] [place] [address] 19497 #### 53589-9, 2088-06 #### [facility] ([id number]) [address] [place] [address], [address] [place] [address] ALP [Catalytic activity/Vol] 119 U/L Normal 39-130 [facility] Comment on above: Performed By: #### C BCA, CMP, 78562-9, THYR #### [facility] ([id number]) [address] [place] [address] 01792 #### 22843-8, 2088-06 #### [facility] ([id number]) [address] [place] [address], [address] [place] [address] ALT [Catalytic activity/Vol] 14 U/L Normal 0-31 [facility] Comment on above: Performed By: #### C BCA, CMP, 11731-4, THYR #### [facility] ([id number]) [address] [place] [address] 68004 #### 64254-1, 2088-06 #### [facility] ([id number]) [address] [place] [address], [address] [place] [address] Anion gap [Moles/Vol] 13 mmol/L Normal 5-15 [facility] Comment on above: Performed By: #### C BCA, CMP, 22215-7, THYR #### [facility] ([id number]) [address] [place] [address] 69854 #### 65858-4, 2088-06 #### [facility] ([id number]) [address] [place] [address], [address] [place] [address] AST [Catalytic activity/Vol] 20 U/L Normal 0-41 [facility] Comment on above: Performed By: #### C BCA, CMP, 63770-1, THYR #### [facility] ([id number]) [address] [place] [address] 28731 #### 93159-7, 2088-06 #### [facility] ([id number]) [address], [address] [place] [address] Bilirubin [Mass/Vol] 0.7 mg/dL Normal 0.3-1.2 [facility] Comment on above: Performed By: #### C BCA, CMP, 14073-2, THYR #### [facility] ([id number]) [address] [place] [address] 41407 #### 15280-8, 2088-06 #### [facility] ([id number]) [address], [address] [place] [address] Calcium [Mass/Vol] 9.1 mg/dL Normal 8.5-10.5 [facility] Comment on above: Performed By: #### C BCA, CMP, 63220-8, THYR #### [facility] ([id number]) [address] [place] [address] 38818 #### 35003-7, 2088-06 #### [facility] ([id number]) [address], [address] [place] [address] Chloride [Moles/Vol] 97 mmol/L Low 98-109 [facility] Comment on above: Performed By: #### C BCA, CMP, 79584-7, THYR #### [facility] ([id number]) [address] [place] [address] 66175 #### 51369-0, 2088-06 #### [facility] ([id number]) [address] [place] [address] CO2 [Moles/Vol] 21 mmol/L Low 22-32 [facility] Comment on above: Performed By: #### C BCA, CMP, 24233-5, THYR #### [facility] ([id number]) [address] [place] [address] 02526 #### 24726-1, 2088-06 #### [facility] ([id number]) [address] [facility], [address] [place] [address] Creatinine [Mass/Vol] 2.04 mg/dL High 0.40-1.00 [facility] Comment on above: Result Comment: METH OD TRACEABLE TO IDMS STANDARD Performed By: #### C NIKKY MOHAN, 39219-0, THYR #### [facility] ([id number]) [address] [place] [address] #### 80745-2, 2088-06 #### [facility] ([id number]) [address] [facility] [address], [address] [place] [address] GFR/1.73 sq M.predicted among non-blacks MDRD (S/P/Bld) [Vol rate/Area] 27 mL/min/{1.73_m2} Low >59 [facility] Comment on above: Result Comment: Reported eGFR is based on the CKD-EPI 2020 equation that does not use a race coefficient. Performed By: #### C NIKKY MOHAN, 72451-6, THYR #### [facility] ([id number]) [address] [place] [address] #### 13406-0, 2088-06 #### [facility] ([id number]) [address], [address] [place] [address] Glucose [Mass/Vol] 187 mg/dL High 65-99 [facility] Comment on above: Performed By: #### C NIKKY MOHAN, 67676-7, THYR #### [facility] ([id number]) [address] [place] [address] #### 60191-6, 2088-06 #### [facility] ([id number]) [address], [address] [place] [address] Potassium [Moles/Vol] 3.5 mmol/L Normal 3.5-5.0 [facility] Comment on above: Performed By: #### C BCA, CMP, 09563-8, THYR #### [facility] ([id number]) [address] [place] [address] #### 69807-4, 2088-06 #### [facility] ([id number]) [address] [facility], [address] [place] [address] Protein [Mass/Vol] 7.9 g/dL Normal 6.0-8.0 [facility] Comment on above: Performed By: #### C BCA, CMP, 07225-7, THYR #### [facility] ([id number]) [address] [place] [address] #### 45987-0, 2088-06 #### [facility] ([id number]) [address] [facility], [address] [place] [address] Sodium [Moles/Vol] 131 mmol/L Low 134-146 [facility] Comment on above: Performed By: #### C BCA, CMP, 50301-2, THYR #### [facility] ([id number]) [address] [place] [address] #### 91104-2, 2088-06 #### [facility] ([id number]) [address] [facility], [address] [place] [address] Urea nitrogen [Mass/Vol] 34 mg/dL High 5-23 [facility] Comment on above: Performed By: #### C BCA, CMP, 79678-0, THYR #### [facility] ([id number]) [address] [place] [address]645 #### 71769-2, 2088-06 #### [facility] ([id number]) [address], [address] [place] [address] Glucose Glucometer (BldC) [M ass/Vol]on 07-25-2023 Glucose [Mass/Vol] 245 mg/dL High 65-99 [facility] Glucose [Mass/Vol] 183 mg/dL High 65-99 [facility] Glucose [Mass/Vol] 207 mg/dL High 65-99 [facility] MAGNESIUMon 07-25-2023 Magnesium [Mass/Vol] 2.3 mg/dL Normal 1.8-2.6 [facility] Comment on above: Performed By: #### C NIKKY MOHAN, 98939-3, THYR #### [facility] ([id number]) [address] [place], [place] [id number] #### 76421-0, 2088-06 #### [facility] ([id number]) [address], [address] [place] [address] POTASSIUMon 07-25-2023 Potassium [Moles/Vol] 4.1 mmol/L Normal 3.5-5.0 [facility] Comment on above: Performed By: #### Teresa MOHAN CMP, 21162-8, THYR #### [facility] ([id number]) [address] [place] [address] [address] #### 59797-6, 2088-06 #### [facility] ([id number]) [address], [address] [place] [address] CBC AND AUTO DIFFon 07-24-19 24 ABSOLUTE BASOPHIL 0.1 X10E9/L Normal 0.0-0.2 [facility] Comment on above: Performed By: #### Teresa MOHAN CMP, 93734-7, THYR #### [facility] ([id number]) [address] [place] [address] 85671 #### 03326-4, 2088-06 #### [facility] ([id number]) [address], [address] [place] [address] ABSOLUTE NEUTROPHIL 5.4 X10E9/L Normal 1.5-6.6 [facility] Comment on above: Performed By: #### C BCA, CMP, 22022-4, THYR #### [facility] ([id number]) [address] [place] [address] 40332 #### 03863-3, 2088-06 #### [facility] ([id number]) [address] [facility], [address] [place] [address] Basophils/100 WBC (Bld) 0.7 % Normal [facility] Comment on above: Performed By: #### C BCA, CMP, 26597-6, THYR #### [facility] ([id number]) [address] [place] [address] 34019 #### 91889-3, 2088-06 #### [facility] ([id number]) [address] [facility], [address] [place] [address] Eosinophils (Bld) [#/Vol] 0.2 10*3/uL Normal 0.0-0.4 [facility] Comment on above: Performed By: #### C BCA, CMP, 71567-2, THYR #### [facility] ([id number]) [address] [place] [address] 96927 #### 45358-0, 2088-06 #### [facility] ([id number]) [address] [facility], [address] [place] [address] Eosinophils/100 WBC (Bld) 2.7 % Normal [facility] Comment on above: Performed By: #### C BCA, CMP, 83669-0, THYR #### [facility] ([id number]) [address] [place] [address] 86663 #### 71439-2, 2088-06 #### [facility] ([id number]) [address] [facility], [address] [place] [address] Erythrocyte distribution width (RBC) [Ratio] 14.3 % Normal 11.5-15.0 [facility] Comment on above: Performed By: #### C BCA, CMP, 98357-6, THYR #### [facility] ([id number]) [address] [place] [address] 56772 #### 68817-1, 2088-06 #### [facility] ([id number]) [address] [place] [address], [facility] [address] [place] [address] Hematocrit (Bld) [Volume fraction] 35.1 % Normal 35-47 [facility] Comment on above: Performed By: #### C BCA, CMP, 45113-7, THYR #### [facility] ([id number]) [address] [place] [address] 14496 #### 90035-4, 2088-06 #### [facility] ([id number]) [address] [place] [address], [facility] [address] [place] [address] Hemoglobin (Bld) [Mass/Vol] 12.0 g/dL Normal 11.7-15.5 [facility] Comment on above: Performed By: #### C BCA, CMP, 58914-1, THYR #### [facility] ([id number]) [address] [place] [address] 87726 #### 98597-3, 2088-06 #### [facility] ([id number]) [address] [place] [address] [address] [place] [address] Lymphocytes (Bld) [#/Vol] 2.3 10*3/uL Normal 1.0-3.5 [facility] Comment on above: Performed By: #### C BCA, CMP, 79396-1, THYR #### [facility] ([id number]) [address] [place] [address] 05643 #### 57504-6, 2088-06 #### [facility] ([id number]) [address] [facility], [address] [place] [address] Lymphocytes/100 WBC (Bld) 26.1 % Normal [facility] Comment on above: Performed By: #### C BCA, CMP, 19382-0, THYR #### [facility] ([id number]) [address] [place] [address] 95776 #### 92883-8, 2088-06 #### [facility] ([id number]) [address] [place] [address], [address] [place] [address] MCH (RBC) [Entitic mass] 27.2 pg Normal 27-34 [facility] Comment on above: Performed By: #### C BCA, CMP, 49496-9, THYR #### [facility] ([id number]) [address] [place] [address] 71017 #### 22711-5, 2088-06 #### [facility] ([id number]) [address] [place] [address], [address] [place] [address] MCHC (RBC) [Mass/Vol] 34.2 g/dL Normal 32-36 [facility] Comment on above: Performed By: #### Teresa BCA, CMP, 33036-2, THYR #### [facility] ([id number]) [address] [place] [address] 65472 #### 70179-3, 2088-06 #### [facility] ([id number]) [address] [place] [address], [address] [place] [address] MCV (RBC) [Entitic vol] 80 fL Normal 80-100 [facility] Comment on above: Performed By: #### C BCA, CMP, 82299-1, THYR #### [facility] ([id number]) [address] [place] [address] 20493 #### 48123-2, 2088-06 #### [facility] ([id number]) [address], [address] [place] [address] Monocytes (Bld) [#/Vol] 0.9 10*3/uL Normal 0-0.9 [facility] Comment on above: Performed By: #### C BCA, CMP, 45439-5, THYR #### [facility] ([id number]) [address] [place] [address] 15536 #### 96739-3, 2088-06 #### [facility] ([id number]) [address], [address] [place] [address] Monocytes/100 WBC (Bld) 9.8 % Normal [facility] Comment on above: Performed By: #### Teresa BCA, CMP, 97034-5, THYR #### [facility] ([id number]) [address] [place] [address] 56658 #### 89708-4, 2088-06 #### [facility] ([id number]) [address], [address] [place] [address] Neutrophils/100 WBC (Bld) 60.7 % Normal [facility] Comment on above: Performed By: #### C BCA, CMP, 30993-1, THYR #### [facility] ([id number]) [address] [place] [address] 52802 #### 56087-7, 2088-06 #### [facility] ([id number]) [address], [address] [place] [address] Platelet mean volume (Bld) [Entitic vol] 8.7 fL Normal 7-12 [facility] Comment on above: Performed By: #### C BCA, CMP, 38065-0, THYR #### [facility] ([id number]) [address] [place] [address] 34273 #### 22923-2, 2088-06 #### [facility] ([id number]) [address], [address] [place] [address] Platelets (Bld) [#/Vol] 288 10*3/uL Normal 150-450 [facility] Comment on above: Performed By: #### C BCA, CMP, 02338-7, THYR #### [facility] ([id number]) [address] [place] [address] 48153 #### 24104-8, 2088-06 #### [facility] ([id number]) [address], [address] [place] [address] RBC COUNT 4.41 X10E12/L Normal 3.80-5.20 [facility] Comment on above: Performed By: #### C BCA, CMP, 86230-4, THYR #### [facility] ([id number]) [address] [place] [address] 57049 #### 31384-9, 2088-06 #### [facility] ([id number]) [address], [address] [place] [address] WBC (Bld) [#/Vol] 8.8 10*3/uL Normal 4.0-11.0 [facility] Comment on above: Performed By: #### C BCA, CMP, 14304-6, THYR #### [facility] ([id number]) [address] [place] [address] 02806 #### 94262-6, 2088-06 #### [facility] ([id number]) [address], [address] [place] [address] COMPREHENSIVE METABOLIC PANE [facility] 07-24-2023 Albumin [Mass/Vol] 3.6 g/dL Normal 3.2-5.3 [facility] Comment on above: Performed By: #### C BCA, CMP, 46227-7, THYR #### [facility] ([id number]) [address] [place] [address] 72279 #### 31499-3, 2088-06 #### [facility] ([id number]) [address] [facility], [address] [place] [address] ALP [Catalytic activity/Vol] 120 U/L Normal 39-130 [facility] Comment on above: Performed By: #### C BCA, CMP, 72915-0, THYR #### [facility] ([id number]) [address] [place] [address] 84489 #### 23137-9, 2088-06 #### [facility] ([id number]) [address] [facility], [address] [place] [address] ALT [Catalytic activity/Vol] 11 U/L Normal 0-31 [facility] Comment on above: Performed By: #### C BCA, CMP, 80599-1, THYR #### [facility] ([id number]) [address] [place] [address] 44075 #### 25199-9, 2088-06 #### [facility] ([id number]) [address] [facility], [address] [place] [address] Anion gap [Moles/Vol] 11 mmol/L Normal 5-15 [facility] Comment on above: Performed By: #### C BCA, CMP, 89602-2, THYR #### [facility] ([id number]) [address] [place] [address] 67193 #### 16640-1, 2088-06 #### [facility] ([id number]) [address] [facility], [address] [place] [address] AST [Catalytic activity/Vol] 15 U/L Normal 0-41 [facility] Comment on above: Performed By: #### C BCA, CMP, 93637-4, THYR #### [facility] ([id number]) [address] [place] [address] 36160 #### 85548-2, 2088-06 #### [facility] ([id number]) [address] [facility], [address] [place] [address] Bilirubin [Mass/Vol] 0.5 mg/dL Normal 0.3-1.2 [facility] Comment on above: Performed By: #### C BCA, CMP, 80083-4, THYR #### [facility] ([id number]) [address] [place] [address] 17179 #### 76820-6, 2088-06 #### [facility] ([id number]) [address] [facility], [address] [place] [address] Calcium [Mass/Vol] 9.4 mg/dL Normal 8.5-10.5 [facility] Comment on above: Performed By: #### C BCA, CMP, 21974-2, THYR #### [facility] ([id number]) [address] [place] [address] 95778 #### 63212-3, 2088-06 #### [facility] ([id number]) [address] [facility], [address] [place] [address] Chloride [Moles/Vol] 101 mmol/L Normal 98-109 [facility] Comment on above: Performed By: #### C BCA, CMP, 57120-3, THYR #### [facility] ([id number]) [address] [place] [address] 24949 #### 77344-2, 2088-06 #### [facility] ([id number]) [address] [facility], [address] [place] [address] CO2 [Moles/Vol] 24 mmol/L Normal 22-32 [facility] Comment on above: Performed By: #### C NIKKY MOHAN, 41605-7, THYR #### [facility] ([id number]) [address] [place] [address] 17492 #### 44338-3, 2088-06 #### [facility] ([id number]) [address] [facility], [address] [place] [address] Creatinine [Mass/Vol] 2.02 mg/dL High 0.40-1.00 [facility] Comment on above: Result Comment: METH OD TRACEABLE TO IDMS STANDARD Performed By: #### C NIKKY MOHAN, 43295-7, THYR #### [facility] ([id number]) [address] [place] [address] 76187 #### 28669-6, 2088-06 #### [facility] ([id number]) [address] [place] [address], [address] [place] [address] GFR/1.73 sq M.predicted among non-blacks MDRD (S/P/Bld) [Vol rate/Area] 28 mL/min/{1.73_m2} Low >59 [facility] Comment on above: Result Comment: Reported eGFR is based on the CKD-EPI 2020 equation that does not use a race coefficient. Performed By: #### C NIKKY MOHAN, 26651-5, THYR #### [facility] ([id number]) [address] [place] [address] 44977 #### 69899-9, 2088-06 #### [facility] ([id number]) [address] [place] [address], [address] [place] [address] Glucose [Mass/Vol] 68 mg/dL Normal 65-99 [facility] Comment on above: Performed By: #### C NIKKY MOHAN, 95775-4, THYR #### [facility] ([id number]) [address] [place] [address] 79687 #### 25046-0, 2088-06 #### [facility] ([id number]) [address], [address] [place] [address] Potassium [Moles/Vol] 2.9 mmol/L Low 3.5-5.0 [facility] Comment on above: Performed By: #### C BCA, CMP, 81598-6, THYR #### [facility] ([id number]) [address] [place] [address] 42246 #### 02036-7, 2088-06 #### [facility] ([id number]) [address], [address] [place] [address] Protein [Mass/Vol] 7.9 g/dL Normal 6.0-8.0 [facility] Comment on above: Performed By: #### C BCA, CMP, 22776-6, THYR #### [facility] ([id number]) [address] [place] [address] 05064 #### 05159-8, 2088-06 #### [facility] ([id number]) [address], [address] [place] [address] Sodium [Moles/Vol] 136 mmol/L Normal 134-146 [facility] Comment on above: Performed By: #### C BCA, CMP, 47251-0, THYR #### [facility] ([id number]) [address] [place] [address] 42598 #### 40813-6, 2088-06 #### [facility] ([id number]) [address] [place] [address] Urea nitrogen [Mass/Vol] 35 mg/dL High 5-23 [facility] Comment on above: Performed By: #### C BCA, CMP, 40516-3, THYR #### [facility] ([id number]) [address] [place] [address] 66790 #### 74819-1, 2088-06 #### [facility] ([id number]) [address], [address] [place] [address] Glucose Glucometer (BldC) [M ass/Vol]on 07-24-2023 Glucose [Mass/Vol] 245 mg/dL High 65-99 [facility] Glucose [Mass/Vol] 204 mg/dL High 65-99 [facility] Glucose [Mass/Vol] 134 mg/dL High 65-99 [facility] MAGNESIUMon 07-24-2023 Magnesium [Mass/Vol] 2.6 mg/dL Normal 1.8-2.6 [facility] Comment on above: Performed By: #### C NIKKY MOHAN, 31878-2, THYR #### [facility] ([id number]) [address] [place] [address] 67888 #### 84189-2, 2088-06 #### [facility] ([id number]) [address], [address] [place] [address] Magnesium [Mass/Vol] 1.6 mg/dL Low 1.8-2.6 [facility] Comment on above: Performed By: #### C NIKKY MOHAN, 25481-2, THYR #### [facility] ([id number]) [address] [place] [address] 64100 #### 03975-9, 2088-06 #### [facility] ([id number]) [address], [address] [place] [address] POTASSIUMon 07-24-2023 Potassium [Moles/Vol] 3.9 mmol/L Normal 3.5-5.0 [facility] Comment on above: Performed By: #### C MARQUES, CMP, 46879-1, THYR #### [facility] ([id number]) [address] [place] [address] 71375 #### 87484-0, 2088-06 #### [facility] ([id number]) [address], [address] [place] [address] CBC AND AUTO DIFFon 07-23-19 ABSOLUTE BASOPHIL 0.1 X10E9/L Normal 0.0-0.2 [facility] Comment on above: Performed By: #### C BCA, CMP, 87026-4, THYR #### [facility] ([id number]) [address] [place] [address] 51041 #### 16006-7, 2088-06 #### [facility] ([id number]) [address] [facility], [address] [place] [address] ABSOLUTE NEUTROPHIL 7.1 X10E9/L High 1.5-6.6 [facility] Comment on above: Performed By: #### C BCA, CMP, 21117-6, THYR #### [facility] ([id number]) [address] [place] [address] 97671 #### 20985-0, 2088-06 #### [facility] ([id number]) [address], [address] [place] [address] Basophils/100 WBC (Bld) 0.9 % Normal [facility] Comment on above: Performed By: #### C BCA, CMP, 34123-6, THYR #### [facility] ([id number]) [address] [place] [address] 91571 #### 07924-5, 2088-06 #### [facility] ([id number]) [address], [address] [place] [address] Eosinophils (Bld) [#/Vol] 0.3 10*3/uL Normal 0.0-0.4 [facility] Comment on above: Performed By: #### C BCA, CMP, 51931-5, THYR #### [facility] ([id number]) [address] [place] [address] 30558 #### 34744-8, 2088-06 #### [facility] ([id number]) [address], [address] [place] [address] Eosinophils/100 WBC (Bld) 2.5 % Normal [facility] Comment on above: Performed By: #### C BCA, CMP, 75152-9, THYR #### [facility] ([id number]) [address] [place] [address] 91940 #### 07290-8, 2088-06 #### [facility] ([id number]) [address], [address] [place] [address] Erythrocyte distribution width (RBC) [Ratio] 14.7 % Normal 11.5-15.0 [facility] Comment on above: Performed By: #### C BCA, CMP, 43190-1, THYR #### [facility] ([id number]) [address] [place] [address] 53679 #### 69575-7, 2088-06 #### [facility] ([id number]) [address], [address] [place] [address] Hematocrit (Bld) [Volume fraction] 39.8 % Normal 35-47 [facility] Comment on above: Performed By: #### C BCA, CMP, 94110-6, THYR #### [facility] ([id number]) [address] [place] [address] 75318 #### 18064-7, 2088-06 #### [facility] ([id number]) [address], [address] [place] [address] Hemoglobin (Bld) [Mass/Vol] 13.6 g/dL Normal 11.7-15.5 [facility] Comment on above: Performed By: #### C BCA, CMP, 62090-1, THYR #### [facility] ([id number]) [address] [place] [address] 82082 #### 39686-6, 2088-06 #### [facility] ([id number]) [address], [address] [place] [address] Lymphocytes (Bld) [#/Vol] 2.4 10*3/uL Normal 1.0-3.5 [facility] Comment on above: Performed By: #### C BCA, CMP, 76304-4, THYR #### [facility] ([id number]) [address] [place] [address] 15773 #### 99733-8, 2088-06 #### [facility] ([id number]) [address] [facility], [address] [place] [address] Lymphocytes/100 WBC (Bld) 21.8 % Normal [facility] Comment on above: Performed By: #### C BCA, CMP, 21386-5, THYR #### [facility] ([id number]) [address] [place] [address] 82979 #### 07487-7, 2088-06 #### [facility] ([id number]) [address], [address] [place] [address] MCH (RBC) [Entitic mass] 27.5 pg Normal 27-34 [facility] Comment on above: Performed By: #### C BCA, CMP, 64894-1, THYR #### [facility] ([id number]) [address] [place] [address] 93284 #### 41271-4, 2088-06 #### [facility] ([id number]) [address], [address] [place] [address] MCHC (RBC) [Mass/Vol] 34.2 g/dL Normal 32-36 [facility] Comment on above: Performed By: #### C MARQUES, CMP, 31536-1, THYR #### [facility] ([id number]) [address] [place] [address] 58092 #### 94675-8, 2088-06 #### [facility] ([id number]) [address] [facility], [address] [place] [address] MCV (RBC) [Entitic vol] 80 fL Normal 80-100 [facility] Comment on above: Performed By: #### C MARQUES CMP, 11906-7, THYR #### [facility] ([id number]) [address] [place] [address] 50195 #### 47741-4, 2088-06 #### [facility] ([id number]) [address] [facility], [address] [place] [address] Monocytes (Bld) [#/Vol] 1.0 10*3/uL High 0-0.9 [facility] Comment on above: Performed By: #### Teresa BCA, CMP, 22047-4, THYR #### [facility] ([id number]) [address] [place] [address] #### 83790-9, 2088-06 #### [facility] ([id number]) [address] [facility], [address] [place] [address] Monocytes/100 WBC (Bld) 8.8 % Normal [facility] Comment on above: Performed By: #### C BCA, CMP, 27702-8, THYR #### [facility] ([id number]) [address] [place] [address] #### 38985-7, 2088-06 #### [facility] ([id number]) [address], [address] [place] [address] Neutrophils/100 WBC (Bld) 66.0 % Normal [facility] Comment on above: Performed By: #### C MARQUES, CMP, 05501-2, THYR #### [facility] ([id number]) [address] [place] [address]4711 #### 91760-9, 2088-06 #### [facility] ([id number]) [address] [facility], [address] [place] [address] Platelet mean volume (Bld) [Entitic vol] 8.1 fL Normal 7-12 [facility] Comment on above: Performed By: #### C MARQUES, CMP, 42631-8, THYR #### [facility] ([id number]) [address] [place] [address] #### 68602-7, 2088-06 #### [facility] ([id number]) [address] [facility], [address] [place] [address] Platelets (Bld) [#/Vol] 326 10*3/uL Normal 150-450 [facility] Comment on above: Performed By: #### C MARQUES, CMP, 99787-6, THYR #### [facility] ([id number]) [address] [place] [address]353 #### 00867-7, 2088-06 #### [facility] ([id number]) [address], [address] [place] [address] RBC COUNT 4.95 X10E12/L Normal 3.80-5.20 [facility] Comment on above: Performed By: #### C BCA, CMP, 94186-7, THYR #### [facility] ([id number]) [address] [place] [address]89 #### 68232-5, 2088-06 #### [facility] ([id number]) [address], [address] [place] [address] WBC (Bld) [#/Vol] 10.8 10*3/uL Normal 4.0-11.0 [facility] Comment on above: Performed By: #### C BCA, CMP, 23467-5, THYR #### [facility] ([id number]) [address] [place] [address] #### 49883-0, 2088-06 #### [facility] ([id number]) [address] [facility], [address] [place] [address] COMPREHENSIVE METABOLIC PANE Ace 07-23-2023 Albumin [Mass/Vol] 4.1 g/dL Normal 3.2-5.3 [facility] Comment on above: Performed By: #### C BCA, CMP, 15142-6, THYR #### [facility] ([id number]) [address] [place] [address]24 #### 92700-5, 2088-06 #### [facility] ([id number]) [address] [facility], [address] [place] [address] ALP [Catalytic activity/Vol] 133 U/L High 39-130 [facility] Comment on above: Performed By: #### C BCA, CMP, 83570-9, THYR #### [facility] ([id number]) [address] [place] [address] #### 01574-7, 2088-06 #### [facility] ([id number]) [address] [facility], [address] [place] [address] ALT [Catalytic activity/Vol] 12 U/L Normal 0-31 [facility] Comment on above: Performed By: #### C BCA, CMP, 01292-2, THYR #### [facility] ([id number]) [address] [place] [address] #### 03363-1, 2088-06 #### [facility] ([id number]) [address] [facility], [address] [place] [address] Anion gap [Moles/Vol] 13 mmol/L Normal 5-15 [facility] Comment on above: Performed By: #### C BCA, CMP, 72958-9, THYR #### [facility] ([id number]) [address] [place] [address] #### 97927-4, 2088-06 #### [facility] ([id number]) [address] [place] [address], [address] [place] [address] AST [Catalytic activity/Vol] 18 U/L Normal 0-41 [facility] Comment on above: Performed By: #### C BCA, CMP, 28811-0, THYR #### [facility] ([id number]) [address] [place] [address] 10057 #### 57184-0, 2088-06 #### [facility] ([id number]) [address], [address] [place] [address] Bilirubin [Mass/Vol] 0.4 mg/dL Normal 0.3-1.2 [facility] Comment on above: Performed By: #### C BCA, CMP, 08607-1, THYR #### [facility] ([id number]) [address] [place] [address] 65450 #### 44338-3, 2088-06 #### [facility] ([id number]) [address] [facility], [address] [place] [address] Calcium [Mass/Vol] 9.6 mg/dL Normal 8.5-10.5 [facility] Comment on above: Performed By: #### C BCA, CMP, 22098-3, THYR #### [facility] ([id number]) [address] [place] [address]103 #### 04161-4, 2088-06 #### [facility] ([id number]) [address], [address] [place] [address] Chloride [Moles/Vol] 99 mmol/L Normal 98-109 [facility] Comment on above: Performed By: #### C BCA, CMP, 17584-0, THYR #### [facility] ([id number]) [address] [place] [address] 00483 #### 42653-7, 2088-06 #### [facility] ([id number]) [address] [place] [address], [address] [place] [address] CO2 [Moles/Vol] 23 mmol/L Normal 22-32 [facility] Comment on above: Performed By: #### C BCA, CMP, 38426-1, THYR #### [facility] ([id number]) [address] [place] [address] 24426 #### 02871-8, 2088-06 #### [facility] ([id number]) [address] [place] [address], [address] [place] [address] Creatinine [Mass/Vol] 2.14 mg/dL High 0.40-1.00 [facility] Comment on above: Result Comment: METH OD TRACEABLE TO IDMS STANDARD Performed By: #### C BCA, CMP, 06940-8, THYR #### [facility] ([id number]) [address] [place] [address] 28591 #### 40885-4, 2088-06 #### [facility] ([id number]) [address], [address] [place] [address] GFR/1.73 sq M.predicted among non-blacks MDRD (S/P/Bld) [Vol rate/Area] 26 mL/min/{1.73_m2} Low >59 [facility] Comment on above: Result Comment: Reported eGFR is based on the CKD-EPI 2020 equation that does not use a race coefficient. Performed By: #### C NIKKY MOHAN, 60132-2, THYR #### [facility] ([id number]) [address] [place] [address] 88147 #### 55681-4, 2088-06 #### [facility] ([id number]) [address], [address] [place] [address] Glucose [Mass/Vol] 159 mg/dL High 65-99 [facility] Comment on above: Performed By: #### C NIKKY MOHAN, 46163-6, THYR #### [facility] ([id number]) [address] [place] [address] 64188 #### 80747-5, 2088-06 #### [facility] ([id number]) [address], [address] [place] [address] Potassium [Moles/Vol] 3.4 mmol/L Low 3.5-5.0 [facility] Comment on above: Performed By: #### C NIKKY MOHAN, 85980-7, THYR #### [facility] ([id number]) [address] [place] [address] 98457 #### 82122-4, 2088-06 #### [facility] ([id number]) [address], [address] [place] [address] Protein [Mass/Vol] 9.4 g/dL High 6.0-8.0 [facility] Comment on above: Performed By: #### C MARQUES CMP, 50724-1, THYR #### [facility] ([id number]) [address] [place] [address] 38650 #### 28929-7, 2088-06 #### [facility] ([id number]) [address] [facility], [address] [place] [address] Sodium [Moles/Vol] 135 mmol/L Normal 134-146 [facility] Comment on above: Performed By: #### C MARQUES CMP, 09412-8, THYR #### [facility] ([id number]) [address] [place] [address] #### 26622-8, 2088-06 #### [facility] ([id number]) [address] [facility], [address] [place] [address] Urea nitrogen [Mass/Vol] 38 mg/dL High 5-23 [facility] Comment on above: Performed By: #### C MARQUES CMP, 96652-1, THYR #### [facility] ([id number]) [address] [place] [address] #### 89797-2, 2088-06 #### [facility] ([id number]) [address] [facility], [address] [place] [address] CT BRAIN WO CONT STROKE ALER Ton 07-23-2023 CT BRAIN WO CONT STROKE ALERT CT BRAIN WO CONT STROKE ALERT CLINICAL INFORMATION: Right facial numbness TECHNIQUE: CT BRAIN WO CONT STROKE ALERT CT images of the brain were obtained. There is no acute intracranial hemorrhage or infarct. No mass is seen. Basilar cisterns are patent. Paranasal sinuses are clear. No calvarial abnormality. Foci of hypoattenuation within the white matter suggests chronic small vessel ischemia. IMPRESSION: Chronic small vessel ischemic changes. All CT scans at this facility use dose modulation, iterative reconstruction, and/or weight based dosing when appropriate to reduce radiation dose to as low as reasonably achievable. Finalized by Amadou Dorsey MD on 07/23/2023 9:24 AM Normal [facility] CT CTA CAROTIDon 07-23-[address] CTA CAROTID CTA of the carotid arteries with contrast and 3-D reformats. INDICATION: Acute stroke, neurologic deficit, right-sided facial and arm numbness. PROCEDURE:CTA angiogram of the carotid arteries performed following the administration of 100 mL of Omnipaque 350 nonionic intravenous contrast. Coronal and sagittal and 3-D volume rendered maximum intensity projection images generated and reviewed under concurrent physician supervision. Automatic radiation exposure lowering techniques were utilized. All CT scans at this facility use dose modulation, iterative reconstruction, and/or weight based dosing when appropriate to reduce radiation dose to as low as reasonably achievable.. The [place] symptomatic carotid endarterectomy trial (NASCET) method for calculating the degree of stenosis was utilized for stenosis measurements. FINDINGS: Comparison is 05/10/2022. Mild atherosclerotic disease of the aortic arch and at the origin of the great vessels without hemodynamically significant stenosis seen. Right carotid: Patent brachiocephalic and common carotid arteries; there is an irregular plaque with calcification at the carotid bifurcation, the proximal right internal carotid artery measures 3 mm compared to 4.8 mm distally giving 35% stenosis. Left carotid: Patent left common carotid arteries; there is an atherosclerotic plaque narrowing the distal left common carotid artery which measures 4 mm compared to 7 mm approximately giving 35% stenosis. The proximal left internal carotid artery measures 2.3 mm compared to 4.7 mm distally giving 55% stenosis. Patent bilateral vertebral arteries. IMPRESSION: 1.] atherosclerotic plaques in the carotid arteries bilaterally, causing 55% stenosis of the left internal carotid, 35% stenosis of the left common carotid, and 35% stenosis of the right internal carotid artery Finalized by Jeovany Romero MD on 07/23/2023 9:36 AM Normal [facility] CT CTA HEADon 07-23-[address] CTA HEAD CLINICAL INFORMATION: Neuro deficit, acute, stroke suspected right side facial and arm numbness TECHNIQUE: CT angiogram of the head was performed following intravenous administration of nonionic intravenous contrast. 3-D maximum intensity projection images generated and reviewed under concurrent physician supervision. Automated exposure control was utilized. Arterial blood flow was measured to assist the stroke clinical team in the diagnosis of large vessel occlusion in patients undergoing screening for acute ischemic stroke using Rapid AI software when clinically indicated. All CT scans at this facility use dose modulation, iterative reconstruction, and/or weight based dosing when appropriate to reduce radiation dose to as low as reasonably achievable. COMPARISON: Same day noncontrast enhanced head CT FINDINGS: There is mild intimal calcification of the cavernous segments of both internal carotid arteries with no hemodynamically significant stenosis. Both anterior and middle cerebral arteries are symmetric and grossly patent. V3 and V4 segments of both vertebral arteries are widely patent. Basilar artery is of adequate course and caliber. Both posterior cerebral arteries are widely patent. IMPRESSION: * Unremarkable cerebral vascularity with no major branch occlusion. Finalized by Nikunj Seals MD on 07/23/2023 9:36 AM Normal [facility] DIRECT LDLon 07-23-2023 Cholesterol in LDL [Mass/Vol] 190 mg/dL High <130 [facility] Comment on above: Result Comment: LDL <100 mg/dL - Desirable LDL 130-159 mg/dL - Borderline High Risk LDL >160 mg/dL - High Risk Performed By: #### C NIKKY MOHAN, 64620-9, THYR #### [facility] ([id number]) [address] [place] [address] #### 09530-3, 2088-06 #### [facility] ([id number]) [address] [place] [address], [address] [place] [address] Glucose Glucometer (BldC) [M ass/Vol]on 07-23-2023 Glucose [Mass/Vol] 116 mg/dL High 65-99 [facility] Glucose [Mass/Vol] 155 mg/dL High 65-99 [facility] Glucose [Mass/Vol] 109 mg/dL High 65-99 [facility] Glucose [Mass/Vol] 155 mg/dL High 65-99 [facility] HGB A1C (GLYCO-HGB)on 2023 Glucose [Mass/Vol] 171 mg/dL Normal [facility] Comment on above: Performed By: #### C NIKKY MOHAN, 66990-7, THYR #### [facility] ([id number]) [address] [place] [address] #### 42009-4, 2088-06 #### [facility] ([id number]) [address] [facility], [address] [place] [address] HbA1c (Bld) [Mass fraction] 7.6 % High 4.4-5.6 [facility] Comment on above: Result Comment: NOTE ADA Guidelines Result HgbA1c Normal : less than 5.7 % Prediabetes : 5.7 % to 6.4 % Diabetes : > 6.4 % Use with caution in patients with abnormal hemoglobin variants as the half-life of red blood cells and in vivo glycation rates are affected. Performed By: #### C NIKKY MOHAN, 51495-8, THYR #### [facility] ([id number]) [address] [place] [address]39 #### 79219-0, 2088-06 #### [facility] ([id number]) [address], [address] [place] [address] Lipid 1996 panelon 4 Cholesterol [Mass/Vol] 327 mg/dL High 150-200 [facility] Comment on above: Performed By: #### Teresa MOHAN CMP, 70765-7, THYR #### [facility] ([id number]) [address] [place] [address] 96773 #### 07327-1, 2088-06 #### [facility] ([id number]) [address] [facility], [address] [place] [address] Cholesterol in HDL [Mass/Vol] 36 mg/dL Low >39 [facility] Comment on above: Result Comment: HDL <40 mg/dL - High Risk HDL > or = 40mg/dL- Desirable HDL >60 mg/dL - Negative Risk Performed By: #### C BCA, CMP, 26634-3, THYR #### [facility] ([id number]) [address] [place] [address] 11914 #### 13322-0, 2088-06 #### [facility] ([id number]) [address], [address] [place] [address] Cholesterol in VLDL [Mass/Vol] 99 mg/dL High 0-30 [facility] Comment on above: Performed By: #### C BCA, CMP, 81651-7, THYR #### [facility] ([id number]) [address] [place] [address] 11940 #### 81344-7, 2088-06 #### [facility] ([id number]) [address], [address] [place] [address] CHOLESTEROL:HDL 9.1 High 1.0-5.0 [facility] Comment on above: Performed By: #### C BCA, CMP, 40260-9, THYR #### [facility] ([id number]) [address] [place] [address] 92147 #### 71111-0, 2088-06 #### [facility] ([id number]) [address], [address] [place] [address] LDL (CALC) RESULT NOT REPORTED DUE TO HIGH TRIGLYCERIDE Normal <130 [facility] Comment on above: Performed By: #### C BCA, CMP, 89390-7, THYR #### [facility] ([id number]) [address] [place] [address] 50998 #### 38596-8, 2088-06 #### [facility] ([id number]) [address], [address] [place] [address] Triglyceride [Mass/Vol] 494 mg/dL High 27-150 [facility] Comment on above: Performed By: #### C NIKKY MOHAN, 89150-3, THYR #### [facility] ([id number]) [address] [place] [address] #### 39410-4, 2088-06 #### [facility] ([id number]) [address] [facility], [address] [place] [address] MR BRAIN WO CONTon MR BRAIN WO CONT MR BRAIN WO CONT MR BRAIN WO CONT: 07/23/2023 11:22 AM Clinical: Right arm numbness. EXAM: MRI brain Comparison: MRI brain 11/02/2022 and MRI 10/30/2022 Procedure: Multiplanar spinecho MRI brain performed. Findings: There is a 5 mm focus of restricted diffusion in the left periventricular deep white matter consistent with small acute infarction. On FLAIR sequence, there are multiple foci of increased signal in the periventricular deep white matter, likely due to chronic microvascular disease. Tiny old lacunar infarctions are again present in bilateral basal ganglia as well as a few in the periventricular white matter. FLAIR signal changes in the left cerebellum are no longer seen. There is improvement in subcortical white matter FLAIR signal in the anterior temporal lobes bilaterally with small amount persisting on the left. Ventricles are normal size. There are no intracranial masses, mass-effect, or extra-axial fluid collection, or acute hemorrhage. Partially empty sella is unchanged. Cranio-cervical junction is normal. There are appropriate flow voids in large cerebral vessels on T2 weighted imaging. 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 * Resolved FLAIR signal in the left cerebellum and improved FLAIR signal in the anterior temporal subcortical white matter. Finalized by Paul Mccall MD on 07/23/2023 11:51 AM Normal [facility] THYROID PROFILEon 07-23-2023 Free T4 [Mass/Vol] 1.10 ng/dL Normal 0.61-1.60 [facility] Comment on above: Performed By: #### C NIKKY MOHAN, 38382-5, THYR #### [facility] ([id number]) [address] [place] [address] #### 54306-7, 2088-06 #### [facility] ([id number]) [address] [place] [address], [address] [place] [address] TSH 2.88 uIU/mL Normal 0.49-4.67 [facility] Comment on above: Performed By: #### C BCA, CMP, 47956-7, THYR #### [facility] ([id number]) [address] [place] [address] 08534 #### 20600-8, 2088-06 #### [facility] ([id number]) [address] [place] [address], [address] [place] [address] TROPONIN Ion 07-23-2023 Troponin I.cardiac [Mass/Vol] 0.01 ng/mL Normal 0.00-0.04 [facility] Comment on above: Performed By: #### C BCA, CMP, 72906-5, THYR #### [facility] ([id number]) [address] [place] [address] #### 13984-5, 2088-06 #### [facility] ([id number]) [address] [place] [address], [address] [address] Troponin I.cardiac [Mass/Vol] 0.03 ng/mL Normal 0.00-0.04 [facility] Comment on above: Performed By: #### Teresa BCA, CMP, 53559-0, THYR #### [facility] ([id number]) [address] [place] [address] 81312 #### 42283-8, 2088-06 #### [facility] ([id number]) [address] [place] [address], [address] [place] [address] A1C HEMOGLOBINon 05-06-2023 HbA1c (Bld) [Mass fraction] 6.8 % [facility] Other Glucose - FINGER STICKon 11- 09-2023 Glucose [Mass/Vol] 177 mg/dL [facility] Other HbA1c (Bld) [Mass fraction]o n 05-06-2023 A1C HEMOGLOBIN [facility] Other A1C HEMOGLOBINon 10-15-2021 HbA1c (Bld) [Mass fraction] 8 % [facility] Other Glucose - FINGER STICKon Glucose [Mass/Vol] 290 mg/dL [facility] Other HbA1c (Bld) [Mass fraction]o n 10-15-2021 A1C HEMOGLOBIN [facility] Other A1C HEMOGLOBINon 07-17-2021 HbA1c (Bld) [Mass fraction] 7.2 % [facility] Other Glucose - FINGER STICKon Glucose [Mass/Vol] 194 mg/dL [facility] Other HbA1c (Bld) [Mass fraction]o n 07-17-2021 A1C HEMOGLOBIN [facility] Other Creatinine W/GFR Point of Ca reon 09-07-2019 Creatinine [Mass/Vol] 1.95 mg/dL High 0.51 - 1.19 mg/dL [place] GFR Non- 27 mL/min Low >60 [place] GFR/1.73 sq M predicted among non-blacks MDRD (S/P/Bld) [Vol rate/Area] 32 mL/min/{1.73_m2} Low >60 [place] GFR/1.73 sq M predicted among non-blacks MDRD (S/P/Bld) [Vol rate/Area] [place], [place] Comment on above: Average GFR for 50-5 9 years old: 93 mL/min/1.73sq m Chronic Kidney Disease: <60 mL/min/1.73sq m Kidney failure: <15 mL/min/1.73sq m eGFR calculated using average adult body mass. Additional eGFR calculator available at: http://www.Recommendo.com/multiple_crcl_2011.htm OPERATIVE REPORTon 0 OPERATIVE REPORT [address] [address] OPERATIVE REPORT PATIENT NAME: OLY HARRELL : 1960 MED REC NO: [id number] ROOM: ACCOUNT NO: [id number] ADMIT DATE: 09/07/2019 PROVIDER: Martir Bang DATE OF PROCEDURE: 09/07/2019 PREOPERATIVE DIAGNOSES: 1. Vitreous hemorrhage, left eye. 2. Proliferative diabetic retinopathy, left eye. POSTOPERATIVE DIAGNOSES: 1. Vitreous hemorrhage, left eye. 2. Proliferative diabetic retinopathy, left eye. PROCEDURES: Pars plana vitrectomy with focal and panretinal photocoagulation, left eye. SURGEON: Martir Bang MD ESTIMATED BLOOD LOSS: Less than [...] to the recovery room in good condition. 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 I have seen andexamined Oly Harrell. I have discussed the case and the managementof this patient's care with the Resident/Fellow, if applicable. I alsohave reviewed and agree with the assessment and plan as stated above andagree with all of its relevant components. 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- Counseled patient that she needs [...] as noted below, or sooner ifnew symptoms develop.Marla New MD [facility] PROGRESSon 10-04-2017 Protein mass conc HNO ID: [id number] thor: Marla Webb: (none)Author Type: PhysicianType: Progress NotesFiled: 10/04/2017 8:20 PMNote Text:Proliferative Diabetic Retinopathy, Both Eyes:- 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 I have confirmed and editedas necessary the [...] as noted below, or sooner ifnew symptoms develop.Marla New MD [facility] HOSPon 04-02-2017 HOSP Office Visit OPHT (OPHTLN) ----OLY HARRELL Nyla ([id number]) 1960 FDate Time Provider Ooszepmolz49/6/17 12:00 PM ALAYNA GUTIERREZ During your visit today, we recorded the following information about you:Alayna Gutierrez MD 04/02/2017 12:19 PM SignedA/P: s/p bilateral anterior levator advancement?ptosis repair with debulking offat 12/23/16Looks great, patient happy2. Notices bump on right browAppears to be from an old scar injuryDiscussed not much to do about itThe documentation for this note was completed by Chelo Hair [employer] acting asa scribe for Alayna Gutierrez MD.The documentation recorded by the scribe accurately reflects the service Ipersonally performed and the decisions made by me. I have confirmed and editedas necessary the relevant ophthalmic history, ROS, and the neuro exam findingsas obtained by others. I have seen and examined Oly A SharriI have discussed the case and the management of this patient's care with theResident/Fellow, if applicable. I also have reviewed and agree with theassessment and plan as stated above and agree with all of its relevantcomponents.SHAY Mancusoeferring Provider: ALAYNA GUTIERREZ [[id number]]Allergies As of Date: 04/02/2017 Noted Allergy ReactionDEMEROL (MEPERIDINE (PF)) 01/30/2014 10 - AnaphylaxisMORPHINE 01/30/2014 10 - AnaphylaxisDate Reviewed: 01/01/2017Reviewed by: Inge Munoz (Tech) - Fully AssessedReason for Visit: Post-Op Visit [1236] Cmt: s/p lid repair 12/23/16Primary Visit Diagnosis:Ptosis of both eyelids [H02.403]Order(s):IOP MEASUREMENT [9894879] Order #: [id number]: 1Prescriptions as of 04/02/2017 Sig: NEOMYCIN 3.5 [...] of therapy completed erythromycin ophthalmic ointment 1 * 1 12/23/2016 04/02/2017 Class: Med Update Route: [...] by mouth. Disc: Discontinued by PatientEncounter Number: [id number] Status:Closed by ALAYNA GUTIERREZ MD on 04/02/17 [facility] PROGRESSon 04-01-2017 Protein mass conc HNO ID: [id number] thor: Alayna Montiel: (none)Author Type: PhysicianType: Progress NotesFiled: 04/02/2017 12:19 PMNote Text:A/P: s/p bilateral anterior levator advancement?ptosis repair withdebulking of fat 12/23/16Looks great, patient happy2. Notices bump on right browAppears to be from an old scar injuryDiscussed not much to do about itThe documentation for this note was completed by Chelo Hair COAacting as a scribe for Alayna Gutierrez MD.The documentation recorded by the scribe accurately reflects the service Ipersonally performed and the decisions made by me. I have confirmed andedited as necessary the relevant ophthalmic history, ROS, and the neuroexam findings as obtained by others. I have seen and examined Oly MendezNahed have discussed the case and the management of this patient's care withthe Resident/Fellow, if applicable. I also have reviewed and agree withthe assessment and plan as stated above and agree with all of its relevantcomponents.Alayna Gutierrez MD [facility] ANES Jaylen 12-23-2016 ANES POST HNO ID: [id number] thor: Harjeet Roman: AnesthesiologyAuthor Type: PhysicianType: Anesthesia PostOpFiled: 12/23/2016 2:03 [...] 23, 2016 : 2:03 PM PAGER/CONTACT #: [facility] PREOPon 12-23-2016 ANES PREOP HNO ID: [id number] thor: [place]: (none)Author Type: PhysicianType: Anesthesia PreOpFiled: 12/23/2016 9:14 AMNote Text:REGIONAL ANESTHESIOLOGY PREOPERATIVE ASSESSMENTPATIENT NAME: Oly HarrellMRN: [id number]: 1960Surgeon(s):Alayna GutierrezProcedure(s) (LRB):REPAIR BLEPHAROPTOSIS; (TARSO) LEVATOR RESECTION OR ADVANCEMENT, EXTERNALAPPROACH (Bilateral)Estimated body mass index is 44.81 kg/(m2) as calculated from thefollowing: Height as of 12/02/16: 157.5 cm (5' 2 ). Weight as of this encounter: 111.1 kg (245 lb).Most recent hematocrit and potassium results:Hematocrit 35.7 12/02/2016Potassium 4.0 12/02/2016Vitals: 12/23/483406FT: 154/91Pulse: 102Resp: 18Temp: 36.3 ?C (97.3 ?F)TempSrc: [...] LEFT EYENo date: COLONOSCOP W/ OR W/O [facility] SPEC Comment: ColonoscopyNo date: EGD W/O OR [...] Medications:lactated ringers infusion 30 mL/hr INTRAVENOUS CONTINUOUS Alayna Walters Rate: 30 mL/hr at 12/23/16 0847 30 [...] contains updated information obtained within 48 hours ofSurgery/Procedure.SIGNATANDRADE E: YVONNE GreenATE: December 23, 2016TIME: 9:14 AM [facility] OPERATIVE NOon 12-23-2016 OPERATIVE NO HNO ID: [id number] thor: Alayna Montiel: OphthalmologyAuthor Type: PhysicianType: Operative ReportFiled: 12/23/2016 10:37 AMNote Text: OPERATIVE/PROCEDURE REPORTLOG ID: [id number]/Procedure Date: 12/23/2016Incision/Procedure Start Time: 9:50 AMIncision Close/Procedure End Time: 10:35 AMSurgeon(s)/Proceduralist(s ) and Developer Automatic(s):Surgeon(s) and Role: * Alayna Gutierrez - PrimaryPre-Op/Pre-Procedure Diagnosis: bilateral upper myogenic [...] patient was thenidentified by the attending surgeon, Alayna Gutierrez, and taken to theoperating room, where [...] with Staff out of room and immediatelyavailable.Dr. Alayna Gutierrez was scrubbed with assistance for the entireremainder of the case.SIGNATURE: Alayna Gutierrez MD PATIENT NAME: Oly HarrellDATE: December 23, 2016 : PAGER/CONTACT #: [facility] PT EDon 12-23-2016 PT ED HNO ID: [id number] thor: Patti (Rn) MELANIE Krishnanervice: NursingAuthor Type: Registered NurseType: Patient EducationFiled: 12/23/2016 11:09 AMNote Text:FOLSOM AMBULATORY SURGERY PATIENT EDUCATION NOTEREADINESS TO LEARNCOGNITIVE [...] RN: NoElectronically Signed By Patti Krishnan RN [facility] Vital Signs Date Time Vital Sign Value Performing Clinician Facility 07-30-2023 10:06-0500 Body height 157.5 cm Christophe Irwin MD Work Phone: [facility] 07-30-2023 10:06-0500 Body mass index (BMI) [Ratio] 40.42 kg/m2 Christophe Irwin MD Work Phone: [facility] 07-30-2023 10:06-0500 Body temperature 97.5 [degF] Christophe Irwin MD Work Phone: [facility] 07-30-2023 10:06-0500 Body weight 100.25 kg Christophe Irwin MD Work Phone: [facility] 07-30-2023 10:06-0500 Diastolic blood pressure 78 mm[Hg] Christophe Irwin MD Work Phone: [facility] 07-30-2023 10:06-0500 Heart rate 94 /min Christophe Irwin MD Work Phone: [facility] 07-30-2023 10:06-0500 SaO2% (BldA) [Mass fraction] 99 % Christophe Irwin MD Work Phone: [facility] 07-30-2023 10:06-0500 Systolic blood pressure 140 mm[Hg] Christophe Irwin MD Work Phone: [facility] 05-06-2023 13:45-0500 Body height 160.66 cm Nancy [employer] Other [employer] Other 05-06-2023 13:45-0500 Body mass index (BMI) [Ratio] 39.68 kg/m2 [employer] Other [employer] Other 05-06-2023 13:45-0500 Body weight 102.42 kg Tondra Mapus Other [employer] Other 05-06-2023 13:45-0500 Diastolic blood pressure 77 mm[Hg] Tondra Mapus Other [employer] Other 05-06-2023 13:45-0500 Respiratory rate 18 /min Tondra Mapus Other [employer] Other 05-06-2023 13:45-0500 SaO2% (BldA) [Mass fraction] 100 % Tondra Mapus Other [employer] Other 05-06-2023 13:45-0500 Systolic blood pressure 187 mm[Hg] Tondra Mapus Other [employer] Other 04-14-2022 15:00-0400 Body height 160.66 cm [employer] Other [employer] Other 04-14-2022 15:00-0400 Body mass index (BMI) [Ratio] 39.92 kg/m2 [employer] Other [employer] Other 04-14-2022 15:00-0400 Body temperature 97.3 [degF] Aziz Glori [employer] Other [employer] Other 04-14-2022 15:00-0400 Body weight 103.06 kg Aziz Glori [employer] Other [employer] Other 04-14-2022 15:00-0400 Diastolic blood pressure 110 mm[Hg] Aziz Glor[employer] Other [employer] Other 04-14-2022 15:00-0400 Respiratory rate 20 /min Fadumo Chau Other [employer] Other 04-14-2022 15:00-0400 SaO2% (BldA) [Mass fraction] 98 % Fadumo Chau Other [employer] Other 04-14-2022 15:00-0400 Systolic blood pressure 170 mm[Hg] Fadumo Chau Other [employer] Other 10-15-2021 17:15-0400 Body height 160.66 cm Tondra Mapus Other [employer] Other 10-15-2021 17:15-0400 Body mass index (BMI) [Ratio] 40.59 kg/m2 Tondra Mapus Other [employer] Other 10-15-2021 17:15-0400 Body weight 104.78 kg Tondra Mapus Other [employer] Other 10-15-2021 17:15-0400 Diastolic blood pressure 84 mm[Hg] Tondra Mapus Other [employer] Other 10-15-2021 17:15-0400 Respiratory rate 20 /min Tondra Mapus Other [employer] Other 10-15-2021 17:15-0400 SaO2% (BldA) [Mass fraction] 95 % Tondra Mapus Other [employer] Other 10-15-2021 17:15-0400 Systolic blood pressure 147 mm[Hg] Tondra Mapus Other [employer] Other 07-17-2021 15:15-0500 Body height 160.66 cm Tondra Mapus Other [employer] Other 07-17-2021 15:15-0500 Body mass index (BMI) [Ratio] 41.12 kg/m2 Tondra Mapus Other [employer] Other 07-17-2021 15:15-0500 Body weight 106.14 kg Tondra Mapus Other [employer] Other 07-17-2021 15:15-0500 Diastolic blood pressure 84 mm[Hg] Tondra Mapus Other [employer] Other 07-17-2021 15:15-0500 Respiratory rate 20 /min Tondra Mapus Other [employer] Other 07-17-2021 15:15-0500 SaO2% (BldA) [Mass fraction] 97 % Tondra Mapus Other [employer] Other 07-17-2021 15:15-0500 Systolic blood pressure 135 mm[Hg] Tondra Mapus Other [employer] Other 09-07-2019 12:00-0400 Pulse Oximetry 97 % [facility]ir Beti [facility] [place] 09-07-2019 11:45-0400 Body Temperature 97.5 [degF] Martir [facility] [employer] [place], [place] 09-07-2019 11:45-0400 BP Diastolic 82 mm[Hg] [facility] [employer] [facility] , [place] 09-07-2019 11:45-0400 BP Systolic 150 mm[Hg] Martir Darden [facility] , [place] 09-07-2019 11:45-0400 Pulse (Heart Rate) 94 /min Martir Darden [facility] [place], [place] 09-07-2019 11:45-0400 Respiratory Rate 16 /min Martir Darden [facility], [place] 09-07-2019 08:38-0400 BMI (Body Mass Index) 45.54 kg/m2 Martir Darden [facility], [place] 09-07-2019 08:38-0400 Body weight 112.95 kg Martir Bang [facility] , [place] 09-07-2019 08:38-0400 Height 157.5 cm Martir Darden [facility] , [place] Encounters Encounter Date Encounter Type Care Provider Facility Start: 07-30-2023 Caitlin Irwin MD Work Phone: [facility] Start: 07-30-2023 [facility] flowsheet Christophe Irwin MD Work Phone: [facility] Start: 07-30-2023 End: 07-30-2023 ambulatory CHRISTOPHE IRWIN Not Available Start: 07-30-2023 End: 07-30-2023 Preoperative state Christophe Irwin MD Work Phone: [facility] Start: 07-30-2023 End: 07-30-2023 Transitional care manage srvc 7 day discharge Christophe Irwin MD Work Phone: [facility] Comment on above: 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 (CMS/HCC) (Primary Dx); Preoperative clearance; Bunion of right foot; Essential hypertension, benign (CMS/HCC); Type 2 diabetes mellitus with microalbuminuria, with long-term current use of insulin (CMS/HCC) Start: 07-26-2023 End: 07-27-2023 ambulatory ANYI ADAME [facility] Start: 07-23-2023 End: 07-27-2023 ambulatory PATRICIA HAWKINS [facility] Start: 07-23-2023 End: 07-27-2023 ambulatory ANYI Jameson WENDI [facility] Start: 07-23-2023 End: 07-27-2023 Emergency department patient visit ANDREW SHARIF [facility] Start: 07-23-2023 End: 07-26-2023 Evaluation and management of inpatient CHRISTOPHE IRWIN [facility] Start: 07-08-2023 End: 07-08-2023 ambulatory Tondra Mapus Other [employer] Other Start: 07-08-2023 Telephone encounter Tondra Mapus [facility] Start: 05-18-2023 End: 05-18-2023 ambulatory Tondra Mapus Other [employer] Other Start: 05-18-2023 Telephone encounter Tondra Mapus [facility] Start: 05-06-2023 (DM) Diabetes Tondra Mapus [facility] Start: 05-06-2023 End: 05-06-2023 ambulatory Tondra K Mapus [employer] Other Start: 04-29-2023 End: 04-29-2023 ambulatory Tondra Mapus Other [employer] Other Start: 04-29-2023 Telephone encounter Tondra Mapus [facility] Start: 02-24-2023 End: 02-24-2023 ambulatory Tondra Mapus Other [employer] Other Start: 02-24-2023 Telephone encounter Tondra Mapus [facility] Start: 11-09-2022 ambulatory MONET MATA Faci lity:[facility]1 Start: 11-05-2022 End: 11-05-2022 ambulatory Tondra Mapus Other [employer] Other Start: 11-05-2022 Telephone encounter Tondra Mapus [facility] Start: 10-30-2022 End: 10-30-2022 ambulatory Tondra Mapus Other [employer] Other Start: 10-30-2022 Telephone encounter Tondra Mapus [facility] Start: 10-12-2022 End: 10-13-[address] CHRISTOPHE IRWIN Facility:[facility] Start: 09-14-2022 End: 09-15-2022 ambulatory ISABELLA KELLY Facility:[facility] Start: 08-31-2022 End: 09-01-2022 ambulatory ISABELLADONTAE COSTAEN Facility:[facility] Start: 08-27-2022 End: 08-27-2022 ambulatory Tondra Mapus Other [employer] Other Start: 08-27-2022 Telephone encounter Tondra Mapus [facility] Start: 08-18-2022 End: 08-19-[address] CHRISTOPHE IRWIN Facility:[facility] Start: 08-10-2022 End: 08-11-[address] CHRISTOPHE IRWIN Facility:[facility] Start: 07-20-2022 End: 07-21-[address] CHRISTOPHE IRWIN Facility:[facility] Start: 06-26-2022 End: 06-27-[address] CHRISTOPHE IRWIN Facility:[facility] Start: 06-18-2022 End: 06-18-2022 ambulatory Tondra Mapus Other [employer] Other Start: 06-18-2022 Telephone encounter Tondra Mapus Sudhakar [facility] Start: 06-15-2022 End: 06-15-2022 ambulatory Tondra Mapus Other [employer] Other Start: 06-15-2022 Telephone encounter Tondra Mapus Sudhakar [facility] Start: 06-09-2022 End: 06-10-2022 ambulatory ISABELLA COSTAEN Facility:[facility] Start: 05-11-2022 End: 05-11-2022 ambulatory UNKNOWN PROVIDER Facility:[facility] Start: 05-07-2022 End: 05-07-2022 ambulatory Tondra Mapus Other [employer] Other Start: 05-07-2022 Telephone encounter Tondra Mapus [facility] Start: 04-15-2022 End: 04-15-2022 ambulatory Aziz Bakhous Other [employer] Other Start: 04-15-2022 Telephone encounter Aziz Bakhous [facility] Start: 04-14-2022 End: 04-14-2022 ambulatory Aziz Bakhous Other [employer] Other Start: 04-14-2022 Office outpatient ne w 30 minutes Aziz Bakhous [facility] Start: 04-01-2022 End: 04-02-[address] AMANDA HOSKINS Facility:[facility] Start: 02-18-2022 End: 02-19-[address] AMANDA HOSKINS Facility:[facility] Start: 01-01-2022 End: 01-01-2022 ambulatory Tondra Mapus Other [employer] Other Start: 01-01-2022 Telephone encounter Tondra Mapus [facility] Start: 10-15-2021 (DM) Diabetes Tondra Mapus [facility] Start: 10-15-2021 End: 10-15-2021 ambulatory Tondra Mapus Other [employer] Other Start: 10-15-2021 Telephone encounter Tondra Mapus [facility] Start: 10-07-2021 End: 10-07-2021 ambulatory Tondra Mapus Other [employer] Other Start: 10-07-2021 Telephone encounter Tondra Mapus [facility] Start: 08-25-2021 End: 08-25-2021 ambulatory Tondra Rogerus Other [employer] Other Start: 08-25-2021 Telephone encounter Nancy Stevens [facility] Start: 07-17-2021 (DM) Diabetes Tondra Mapus [facility] Start: 07-17-2021 End: 07-17-2021 ambulatory Tondra Rogerus Other [employer] Other Start: 09-07-2019 End: 09-07-2019 Patient encounter procedure MARTIR BANG [facility] Start: 09-07-2019 End: 09-07-2019 Subsequent hospital visit by physician Martir Bang Work Phone: [facility] Start: 01-21-2018 End: 01-24-2018 Patient encounter BRITTANY MARTINERIKA [facility] Start: 11-01-2017 End: 11-02-2017 Patient encounter MARLA NEW [facility] Start: 10-04-2017 End: 10-05-2017 Patient encounter MARLA NEW [facility] Start: 08-30-2017 End: 09-02-2017 Patient encounter MARLA NEW [facility] Start: 04-02-2017 End: 04-02-2017 Patient encounter ALAYNA [facility] Start: 12-23-2016 End: 12-23-2016 Ambulatory [facility] Procedures Date Procedure Procedure Detail Performing Clinician Start: 09-07-2019 BEDREST MARTIR ADAME Start: 09-07-2019 Continuous pulse oximetry MARTIR BANG Start: 09-07-2019 ENCOURAGE DEEP BREAT NOLVIA AND COUGHING MARTIR BANG Start: 09-07-2019 INITIATE OXYGEN THER APY PROTOCOL MARTIR BANG Start: 09-07-2019 NOTIFY PHYSICIAN (SPECIFY) MARTIR BANG Start: 09-07-2019 NURSING COMMUNICATION P TANVIR BANG Start: 09-07-2019 VITAL SIGNS MARTIR EDWARDS SEN Start: 09-07-2019 DISCHARGE PATIENT IRVING BANG Start: 09-07-2019 CREATININE W/GFR POI NT OF CARE MARTIR BANG Start: 09-07-2019 Potassium serum plasma/whole blood MARTIR BANG Start: 09-07-2019 BUN AND CREATININE JAZZY BANG Start: 09-07-2019 Electrolyte panel IRVING BANG Start: 09-07-2019 Gluc bld gluc mntr d ev cleared fda spec home use MARTIR BANG Start: 09-07-2019 INITIATE OXYGEN THER APY PROTOCOL MARTIR BANG Start: 09-07-2019 NOTIFY PHYSICIAN (SPECIFY) MARTIR BANG Start: 09-07-2019 PULSE OXIMETRY SPOT CHECK MARTIR BANG Start: 09-07-2019 Urine test visual color cmprsn meths MARTIR BANG Start: 09-07-2019 VITAL SIGNS MARTIR ADAME Start: 09-07-2019 Ecg routine ecg w/le ast 12 lds w/i&r MARTIR BANG Start: 09-07-2019 CREATININE W/GFR POI NT OF CARE Martir Bang Work Phone: Start: 09-07-2019 Gluc bld gluc mntr d ev cleared fda spec home use Martir Bang Work Phone: Start: 09-07-2019 Potassium [Moles/Vol] P tanvir Bang Work Phone: Start: 05-10-2018 Mammography Christophe mackey MD Work Phone: Plan of Treatment Date Care Activity Detail Author Start: 10-29-2023 End: 10-29-2023 Patient encounter procedure 10/29/2023 10:15 AM EDT Office Visit [facility] [address] [place] [id number] Christophe Irwin MD [address] [place] [id number] [facility] Start: 07-30-2023 End: 07-30-2023 Patient encounter procedure 07/30/2023 10:15 AM EST [facility] [address] [place] [address] Christophe Irwin MD [address] [place] [phone] Arrived [facility] Comment on above: Arrived Start: 02-26-2023 Influenza vaccination Influenza Vacc ine (#1) [facility] Start: 01-29-2023 Hemoglobin A1c measurement Diabetes: Hemoglobin A1C [facility] Start: 05-10-2019 Screening for malign ant neoplasm of breast Mammogram [facility] Start: 02-26-2019 Influenza vaccination Flu vaccine (# 1) [place], [place] Start: 1992 Screening for malign ant neoplasm of cervix [facility] Start: 10-27-1983 Screening for malign ant neoplasm of cervix Pap Smear [facility] Start: 1972 Glaucoma screening Diabetes: R etinopathy Screening [facility] Start: 1962 Creatinine monitoring Creatinine mon itoring [place] Start: 1962 Medicare Annual Wellness (AWV) Medicare Annual Wellness (AWV) [facility] Start: 1962 Potassium monitoring Potassium monit oring [place] Start: 1962 Screening for malign ant neoplasm of colon [facility] End: 09-07-2019 BUN & Creatinine BUN & Creatinine Lab STAT One Time for 1 Occurrences starting 09/07/2019 until 09/07/2019 [place] Comment on above: One Time for 1 Occur rences starting 09/07/2019 until 09/07/2019 EKG 12 Lead EKG 12 Lead ECG STAT 09/07/2019 7:38 AM EDT [place] End: 09-07-2019 Electrolyte Panel Electrolyte Panel Lab STAT One Time for 1 Occurrences starting 09/07/2019 until 09/07/2019 [place] Comment on above: One Time for 1 Occur rences starting 09/07/2019 until 09/07/2019 Initiate Oxygen Ther apy Protocol Initiate Oxygen Therapy Protocol Respiratory Care Routine Daily until discontinued starting 09/07/2019 [place] Comment on above: Daily until disconti nued starting 09/07/2019 Phase I & II - meter ed glucose Phase I & II - metered glucose Point of Care Testing Routine As Needed until discontinued starting 09/07/2019 Katalina [facility] [place] Comment on above: As Needed until disc ontinued starting 09/07/2019 End: 09-07-2019 POCT Glucose Katalina [facility] [place] Comment on above: One Time for 1 Occur rences starting 09/07/2019 until 09/07/2019 End: 09-07-2019 Pulse Oximetry Spot Check Pulse Oximetry Spot Check Respiratory Care Routine One Time for 1 Occurrences starting 09/07/2019 until 09/07/2019 Katalina [facility] [place] Comment on above: One Time for 1 Occur rences starting 09/07/2019 until 09/07/2019 End: 09-07-2019 Urine , POCT Urine , POCT Point of Care Testing Routine One Time for 1 Occurrences starting 09/07/2019 until 09/07/2019 Katalina [facility] [place] Comment on above: One Time for 1 Occur rences starting 09/07/2019 until 09/07/2019 Immunizations Immunization Date Immunization Notes Care Provider [facility] 05-15-2020 influenza virus vacc ine, unspecified formulation Christophe Irwin MD Work Phone: [facility] Payers Date Payer Category Payer Medicare [facility] MEDICARE [facility] [id number] 2023-Present [address] [place] [address] [id number] 2022 Medicaid MEDICAID [facility] [id number] 2022-Present [phone] [address] [place] [address] Medicaid [id number] 2019 Medicare [facility] MEDICARE [facility] DUAL COMPLETE xxxxxxxxx 2019-Present xxxxxxxxx [id number] 2018 Self-pay 2017 Medicare [id number] 2014 [place] xxxxxxxxxxxx 2014-Present [phone] [address] [place] [address] xxxxxxxxxxxx [id number] 1962 Unknown [id number] 2.16.840.1.609545.3.579.2.1 75 1962 Unknown [id number] 2.16.840.1.218202.3.579.2.7 32 1962 Unknown [id number] 2.16.840.1.142724.3.579.2.5 93 1962 Unknown [id number] 2.16.840.1.708128.3.579.2.5 93 1962 Unknown [id number] 2.16.840.1.961730.3.579.2.5 93 1962 Unknown [id number] 2.16.840.1.451387.3.579.2.5 93 1962 Unknown [id number] 2.16.840.1.479220.3.579.2.5 93 1962 Unknown [id number] 2.16.840.1.638572.3.579.2.5 93 1962 Unknown [id number] 2.16.840.1.794747.3.579.2.5 93 1962 Unknown [id number] 2.16.840.1.560743.3.579.2.5 93 1962 Unknown [id number] 2.16.840.1.996410.3.579.2.5 93 1962 Unknown [id number] 2.16.840.1.214252.3.579.2.5 93 1962 Unknown [id number] 2.16.840.1.418632.3.579.2.5 93 1962 Unknown [id number] 2.16.840.1.742137.3.579.2.1 286 1962 Unknown [id number] 2.16.840.1.342273.3.579.2.1 286 1962 Unknown [id number] 2.16.840.1.944437.3.579.2.1 286 1962 Unknown [id number] 2.16.840.1.728253.3.579.2.1 286 1962 Unknown [id number] 2.16.840.1.520760.3.579.2.1 286 1962 Unknown [id number] 2.16.840.1.008617.3.579.2.1 286 1962 Unknown [id number] 2.16.840.1.287732.3.579.2.1 286 1962 Unknown [id number] 2.16.840.1.245766.3.579.2.1 259 1959 Medicaid [id number] Unknown [id number] 2.16.840.1.398718.3.579.2.5 31 Social History Date Type Detail Facility Start: 09-07-2019 Tobacco smoking stat [facility] Former smoker [place] End: 09-05-1979 History of tobacco use Current [place] End: 09-05-1979 History of tobacco use Cigarette [place] Start: 09-07-2019 End: 07-30-2023 Cigarettes smoked current (pack per day) - Reported [place] Start: 09-07-2019 End: 07-30-2023 Alcohol intake Lifetime non-drinker (finding) [place] Start: 09-05-2019 History SDOH Alcohol Frequency 1 [place], [place] Start: 1960 Sex Assigned At Not on file [place] Start: 07-09-2023 End: 07-30-2023 Sex Assigned At [employer] Other Start: 12-14-2022 Tobacco smoking stat us NHIS Never smoked tobacco [facility] Start: 12-14-2022 Tobacco use and exposure Smokeless tobacco non-user [facility] Medical Equipment Procedure Code Equipment Code Equipment Original Text Equi pment Identifier Dates Clinical Notes 07-17-2021 to 07-30-2023 Christophe Irwin MD - 07/30/2023 12:28 PM Manasa Irwin MD - 07/30/2023 12:28 PM Manasa Irwin MD - 07/30/2023 12:27 PM Manasa Irwin MD - 07/30/2023 12:27 PM EST Note Date & Type Note Facility 07-30-2023 History of Presen t illness Narrative Associated Problem(s): Preoperative clearance Patient would be intermediate risk for complications during surgery due to HTN and DM. Recent stroke and need surgical clearance from neurology. Associated Problem(s): Type 2 diabetes mellitus with microalbuminuria, with long-term current use of insulin (CMS/HCC) Reports BS stable and follow with endocrinology. Associated Problem(s): Essential hypertension, benign (CMS/HCC) BP controlled and monitor PRN. Associated Problem(s): Bunion of right foot Continued pain and will need surgery. Follow up with podiatry. Associated Problem(s): 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 (CMS/HCC) Recent stroke and continue plavix and lipitor. Follow up with neurology and will need clearance by them for surgery. Specifically need to find out when able to hold plavix for upcoming surgery. Subjective Patient ID: Oly Harrell is a 62 y.o. female who presents for Follow-up (Surgical clearance). Hospital follow up after stroke and needs surgical clearance. Patient developed right arm weakness for several days. Progressively worsened and not able to move arm. To ER and CT negative. Admitted for stroke workup. MRI brain showed acute stroke and seen by neurology. Echo normal and event monitor placed. Added plavix and lipitor. Doing well since home. Symptoms have mostly resolved and strength almost normal in right arm. Able to use without difficulty and no problems with fine motor control. Scheduled with neurology next month. Seen by podiatry for bunion and pain in right foot. Plan on fusion and surgical correction. Risk factors include diabetes and HTN. Follows with endocrinology and diabetes typically controlled. BP controlled with medication. No chest pain or palpitations. No SOB or cough. Review of Systems Respiratory: Negative for cough, shortness of breath and wheezing. Cardiovascular: Negative for chest pain and palpitations. Gastrointestinal: Negative for abdominal pain, diarrhea, nausea and vomiting. Genitourinary: Negative for dysuria. Objective Physical Exam Constitutional: General: She is not in acute distress. Appearance: Normal appearance. HENT: Head: Normocephalic. Right Ear: Tympanic membrane normal. Left Ear: Tympanic membrane normal. Eyes: Extraocular Movements: Extraocular movements intact. Pupils: Pupils are equal, round, and reactive to light. Cardiovascular: Rate and Rhythm: Normal rate and regular rhythm. Heart sounds: No murmur heard. No friction rub. No gallop. Pulmonary: Effort: Pulmonary effort is normal. Breath sounds: Normal breath sounds. No wheezing, rhonchi or rales. Abdominal: General: Bowel sounds are normal. There is no distension. Palpations: Abdomen is soft. Tenderness: There is no abdominal tenderness. There is no guarding or rebound. Musculoskeletal: Cervical back: Neck supple. Right lower leg: No edema. Left lower leg: No edema. Neurological: Mental Status: She is alert. Assessment/Plan Problem List Items Addressed This Visit Essential hypertension, benign (CMS/HCC) BP controlled and monitor PRN. Type 2 diabetes mellitus with microalbuminuria, with long-term current use of insulin (CMS/HCC) Reports BS stable and follow with endocrinology. 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 (CMS/HCC) - Primary Recent stroke and continue plavix and lipitor. Follow up with neurology and will need clearance by them for surgery. Specifically need to find out when able to hold plavix for upcoming surgery. Bunion of right foot Continued pain and will need surgery. Follow up with podiatry. Preoperative clearance Patient would be intermediate risk for complications during surgery due to HTN and DM. Recent stroke and need surgical clearance from neurology. documented in this encounter [facility] 07-08-2023 Evaluation note Encounter Date Diagnosis Assessment Notes Jun, Diabetes mellitus with renal manifestations, uncontrolled (ICD-10 - E11.29) [facility] Other 11-09-2023 Evaluation note* Encounter Date Diagnosis Assessment Notes Treatment Notes Treatment Clinical Notes Apr, Insulin long-term use (ICD-10 - Z79.4) Apr, Type 2 diabetes mellitus with diabetic chronic kidney disease (ICD-10 - E11.22) 1. Controlled, Type 2 diabetes A1c 6.8%. 2. Blood glucose levels improved. According to [email or web address] 2 cgm download 04/16/23-04/29/23: Avg glucose 157. [...] addressed- pt. will have paperwork sent from [employer] for diabetic shoes. She has history of [...] S91.301A) keep f/u with Dr. Mata Wednesday05/10/23 [facility] Other 05-05-2023 Evaluation note* Encounter Date Diagnosis Assessment Notes Treatment Notes Treatment Clinical Notes October, Hyperlipidemia (ICD-10 - E78.5) [facility] Other 12-14-2022 NotePROCEDURE: XR FOOT RT MIN [...] Electronically authenticated by: AMANDA HOSKINS Date: 2022-06-10 09:23[facility]10-18-2022 Evaluation note* Encounter Date Diagnosis Assessment [...] current with her PCP for hyperlipidemia control [facility] Other 10-05-2022 NotePROCEDURE: XR ANKLE RT MIN [...] Electronically authenticated by: AMANDA HOSKINS Date: 2022-04-01 10:53[facility]08-25-2022 NotePROCEDURE: XR ANKLE LT MIN 3 [...] screws as detailed above. Electronically authenticated by: AMANDA HOSKINS Date: 2022-02-19 08:07[facility]08-25-2022 NotePROCEDURE: XR FOOT RT MIN 3 [...] Electronically authenticated by: AMANDA HOSKINS Date: 2022-02-19 08:04[facility]07-07-2022 Evaluation note* Encounter Date Diagnosis Assessment Notes Treatment Notes Treatment Clinical Notes Dec, Diabetes mellitus with renal manifestations, uncontrolled (ICD-10 - E11.29) [facility] Other 04-20-2022 Evaluation note* Encounter Date Diagnosis Assessment Notes Treatment Notes Treatment Clinical Notes Sep, Insulin long-term use (ICD-10 - Z79.4) Sep, Type 2 diabetes mellitus with diabetic chronic kidney disease (ICD-10 - E11.22) 1. Uncontrolled, Type 2 diabetes A1c 8%. 2. Blood glucose levels according to penelope 2 cgm download 09/29/21-10/12/21: Avg glucose 188. [...] addressed- pt. will have paperwork sent from [employer] for diabetic shoes. 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 Donaldson no longer practicing- recommend referral to [facility] nephrology Sep, BMI 40.0-44.9, adult (ICD-10 - Z68.41) Deciphering the nutrition facts label material was published [facility] Other 01-20-2022 Evaluation note* Encounter Date Diagnosis [...] cgm today. Will send for cgm's to [facility]. Discussed with pt adding sglt2. Reviewed common [...] addressed- pt. will have paperwork sent from [employer] for diabetic shoes. 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 Jun, BMI 40.0-44.9, adult (ICD-10 - Z68.41) Deciphering the nutrition facts label material was published [facility] Other Evaluation noteNo InformationNort Memorop Other Evaluation note* Diagnosis 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 (CMS/HCC)- Primary Preoperative clearance Unspecified pre-operative examination Bunion of right foot Bunion Essential hypertension, benign (CMS/HCC) Essential hypertension, benign Type 2 diabetes mellitus with microalbuminuria, with long-term current use of insulin (CMS/HCC) [facility] - Reported* Type Description Date [...] K, LOW CALCIUM; 09/2020 Hospitalization History Back fracture[facility] 2020 Hospitalization History Seizures-[facility] 05/2020 [facility] Other History general Narrative - Reported* Type Description Date Medical History Diabetes Medical History Hypertension Medical History [facility] Medical History Chronic pelvic pain Medical History CRF stage 3 Medical History LEFT ANKLE FRACTURE WITH SURGICA L REPAIR Medical History RIGHT FOOT ABSCESS Medical History Seizures Medical History INSULIN HALFWAY USE Medical History HYPERLIPIDEMIA Medical History TYPE [...] K, LOW CALCIUM; 09/2020 Hospitalization History [facility] 2020 Hospitalization History [facility]ures-[facility] 05/2020 [facility] Other History general Narrative - Reported* Type Description Date Medical History Diabetes Medical History Hypertension Medical History Bez[facility] Medical History Chronic pelvic pain Medical History CRF stage 3 Medical History LEFT ANKLE FRACTURE WITH SURGICA L REPAIR Medical History RIGHT FOOT ABSCESS Medical History Seizures 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 Medical History HYPERLIPIDEMIA Medical History TYPE [...] K, LOW CALCIUM; 09/2020 Hospitalization History [facility] fracture[facility] 2020 Hospitalization History Se[facility]ures-[facility] 05/2020 [facility] Other Summary Purpose Family History No Family History Records FoundNo Family History Records FoundNo Family History Records FoundNo Family History Records FoundNo Family History Records FoundNo Family History Records FoundNo Family History Records FoundNo Family History Records Found Advance Directives Documents on File Type Date Recorded Patient Breaker Layer Expl anation Advance Directives and Living Will Power of Insurance Verify Rep Assessments Diagnosis 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 (HCC) Additional Source Comments INFORMATION SOURCE (unrecogn ized section and content) DATE CREATED AUTHOR 12/22/2017 [facility] DATE CREATED AUTHOR AUTHOR'S ORGANIZ ATION 01/24/2018 [facility] DATE CREATED AUTHOR AUTHOR'S ORGANIZ ATION 09/14/2019 [facility] DATE CREATED AUTHOR AUTHOR'S ORGANIZ ATION 05/11/2022 [facility] DATE CREATED AUTHOR AUTHOR'S ORGANIZ ATION 11/11/2022 [facility] DATE CREATED AUTHOR AUTHOR'S ORGANIZ ATION 05/08/2023 [facility] DATE CREATED AUTHOR AUTHOR'S ORGANIZ ATION 07/29/2023 [facility] DATE CREATED AUTHOR AUTHOR'S ORGANIZ ATION 07/31/2023 [facility] EPIC Reason for Visit (unrecogniz ed section and content) Status Reason Specialty Diagnoses / Procedures Referre d By Contact Referred To Contact Diagnoses Vitreous hemorrhage (HCC) VITREOUS HEMORRAGE Procedures MD VITRECTOMY,MECHANICAL MD VITRECTOMY PARS PLANA REMOVE PRERETINAL MEMBRANE VITRECTOMY 25 [address] Martir Bang MD [facility], [address] [place] [address] [facility] Reason Comments Follow-up Surgical clearance Care Teams (unrecognized sec tion and content) Strategic Partner Development Manager Relationship Specialty Start Date End Date Christophe Irwin MD [address] [place] [phone] PCP - General Family Medicine 07/20/23 Strategic Partner Development Manager Relationship Specialty Start Date End Date Christophe Irwin MD [address] [place] [phone] PCP - General Family Medicine 07/20/23 FOR RECORDS PERTAINING TO PATIENTS WHO ARE [...] BE BASED ON THE PRIMARY CLINICAL RECORDS. [facility] [facility]. provides no warranty or guarantee of the accuracy or completeness of information in this document.
== END 2023-08-03 10:41 | disposition home or self-care (01) ==
LOC: WC 10:40
PROVIDERS: Visit Provider Podiatrist Foot & Ankle Surgery
DX: E11.621 Type 2 diabetes mellitus with foot ulcer (principal); L97.411 Non-pressure chronic ulcer of right heel and midfoot limited to breakdown of skin
CPT/HCPCS: 11042

== ENCOUNTER 2023-08-31 15:33 | Outpatient (OUT) | payer MEDICARE, MEDICAID, SELFPAY ==
--- OUTSIDE RECORDS SUMMARY | 2023-08-31 15:45 | XMS_ITS | CCD ---
Author Name Unknown Address [address] [place] [address] Organization [facility] Care Team Providers Care Jet Wiper Name Role Phone GUTIERREZ, ALAYNA Unavailable Unavailable GUTIERREZ, ALAYNA Unavailable Unavailable GUTIERREZ, ALAYNA Unavailable Unavailable GUTIERREZ, ALAYNA Unavailable Unavailable VIRGEN, MARLA Unavailable Unavailable VIRGEN, MARLA Unavailable Unavailable VIRGEN, MARLA Unavailable Unavailable VIRGEN, MARLA Unavailable Unavailable VIRGEN, MARLA Unavailable Unavailable BABIUCH, BRITTANY Unavailable Unavailable MARTIR BANG Admitting Unavailable MARTIR BANG Attending Unavailable CHRISTOPHE IRWIN Primary Care Unavaillee e Christophe Irwin Primary Care Provider [phone] Nancy Stevens Unavailable Fadumo Chau Unavailable PROVIDER, UNKNOWN Attending Unavailable PROVIDER, UNKNOWN Admitting Unavailable ISABELLA KELLY Attending Unavailable NADEREAdriano, DR CHRISTOPHE Redmond Primary Care Unavailable LETICIAISABELLA OLIVER Admitting Unavailable LETICIA, ISABELLA Admitting Unavailable ISABELLA KELLY Attending Unavailable NADERER, DR CHRISTOPHE Redmond Primary Care Unavailable NADERER, DR CHRISTOPHE Redmond Primary Care Unavailable MARIONANDERMONET Attending Unavailable HIGHLANDERMONET Admitting Unavailable HIGHLANDER, MONET Jameson Attending Unavailable NADERER, DR CHRISTOPHE Redmond Primary Care Unavailable HIGHLANDER, MONET Jameson Admitting Unavailable NADERER, DR CHRISTOPHE Redmond Primary Care Unavailable HIGHLANDER, MONET Jameson Attending Unavailable HIGHLANDER, PETER D Admitting Unavailable NADERER, DR CHRISTOPHE Redmond Primary Care Unavailable HIGHLMONET ONOFRE Attending Unavailable HIGHLANDER, PETER Gisell Admitting Unavailable NADERER, DR CHRISTOPHE Redmond Primary Care Unavailable HIGHLANDERMONET Attending Unavailable HIGHLANDER PETER Gisell Admitting Unavailable LETICIA, ISABELLA Admitting Unavailable LETICIA, ISABELLA Attending Unavailable ZIEBWONG, DR AMANDA Oh Consulting Unavailable NADERER, DR CHRISTOPHE Redmond Primary Care Unavailable LETICIA, ISABELLA Consulting Unavailable ZIEBER, DR AMANDA Oh Consulting Unavailable NADERER, DR CHRISTOPHE Redmond Primary Care Unavailable HIGHLANDER, MONET Jameson Attending Unavailable HIGHLANDER, PETER D Admitting Unavailable HIGHLANDER, PETER D Consulting Unavailable ZIEBER, DR AMANDA Oh Consulting Unavailable NADERER, DR CHRISTOPHE Redmond Primary Care Unavailable HIGHLANDER, MONET Jameson Attending Unavailable HIGHLANDER, PETER D Admitting Unavailable HIGHLANDER, PETER D Consulting Unavailable NADERER, DR CHRISTOPHE Redmond Primary Care Unavailable HIGHLANDER, MONET Jameson Attending Unavailable HIGHLANDER, PETER D Admitting Unavailable NADERER, CHRISTOPHE Primary Care Unavailable ANDREW SHARIF Attending Unavailable ILANA, EHAD Consulting Unavailable POTHIREDDY, HELEN P Admitting Unavailable KROTZERANYI Attending Unavailable ANYI ADAME Referring Unavailable CHRISTOPHE IRWIN Primary Care Unavailable ANDREW SHARIF Attending Unavailable ANDREW SHARIF Referring Unavailable NADERER, CHRISTOPHE Primary Care Unavailable ANDREW SHARIF Attending Unavailable ANDREW SHARIF Referring Unavailable NADERER, CHRISTOPHE Primary Care Unavailable ANDREW SHARIF Attending Unavailable ANDREW SHARIF Referring Unavailable NADERER, CHRISTOPHE Primary Care Unavailable KRANYI MATHEW Attending Unavailable KROTZEROFELIALE Gisell Referring Unavailable NADERER, CHRISTOPHE Primary Care Unavailable PATRICIA HAWKINS Attending Unavailable PATRICIA HAWKINS Referring Unavailable NADPEDRO, CHRISTOPHE Primary Care Unavailable Christophe Irwin MD Primary Care Provider CHRISTOPHE IRWIN Attending Unavailable Mapus, Tondra K Attending Unavailable Mapus, Tondra K Admitting Unavailable Roney Sahu Primary Care Unavailable Allergies Allergy Classification Reported Allergen(s) Allergy Type Date of Onset Reaction(s) Facility (3 sources) meperidine; Translations: [MEPERIDINE (PF)] Drug Allergy 4 AOF [facility] Repository (20 sources) morphine; Translations: [MORPHINE] Drug Allergy 4 Other (See Comments), Anaphylaxis, Unknown, Other [facility] Repository (20 sources) Meperidine; Translations: [MEPERIDINE] Drug Allergy 4 Other (See Comments), Anaphylaxis, Unknown [place], [place] (2 sources) Sertraline; Translations: [SERTRALINE HCL] Drug Allergy 0 Hives [place], [place] (1 source) Other Propensity to adverse reactions 0 Other (See Comments) [place] (20 sources) Acetaminophen Drug Allergy 3 Unknown [facility] (1 source) Meperidine Drug Allergy 5 [facility] Repository (1 source) Sertraline Drug Allergy 0 [facility] Repository (1 source) Tylenol-Codeine #3 Drug allergy (disorder) 0 [facility] Repository (5 sources) dulaglutide Drug Allergy 3 g/i [facility] (5 sources) semaglutide Drug Allergy 3 g/i s/e [facility] (5 sources) Acetaminophen / Codeine; Translations: [ACETAMINOPHEN-CO DEINE] Drug Allergy 8 Shortness of breath [facility] Repository (3 sources) Meperidine Drug Allergy 3 Unknown [facility] (3 sources) Sertraline Drug Allergy 0 [facility] (1 source) Acetaminophen Drug Allergy 3 [facility] Repository (1 source) dulaglutide Drug Allergy 3 [facility] Repository (1 source) Meperidine Drug Allergy 3 [facility] Repository (1 source) semaglutide Drug allergy (disorder) 3 [facility] Repository Medications Current Medications Medication Drug Class(es) Dates [...] 1 capsule Orally Active Cholecalciferol 1.25 MG (72052 UT) 1 capsule Orally Active clopidogrel 75 [...] by mouth every week Ergocalciferol 1.25 MG (55086 UT) 1 capsule Orally weekly Jan, Active [...] 07-15-2023 07-15-2023 Chronic Other aftercare (4 sources) [facility] (current) use of insulin; Translations: [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 coordinator (current) use of insulin] Onset: 11-01-2017 Resolved: 10-15-2021 Episodic Other aftercare (20 sources) Long-term current use of insulin; Translations: [[facility] (current) use of insulin] Episodic Other bone [...] Range Facility CBC AND AUTO DIFFon 07-26-19 24 ABSOLUTE BASOPHIL 0.1 X10E9/L Normal 0.0-0.2 [facility] Comment on above: Performed By: #### C BCA, CMP, 00528-9, THYR #### [facility] ([id number]) [address] [place] [address] 69273 #### 05222-6, 2088-06 #### [facility] ([id number]) [address] [place] [address], [address] [address] ABSOLUTE NEUTROPHIL 5.4 X10E9/L Normal 1.5-6.6 [facility] Comment on above: Performed By: #### C BCA, CMP, 70936-9, THYR #### [facility] ([id number]) [address] [place] [address] 45258 #### 11768-2, 2088-06 #### [facility] ([id number]) [address] [place] [address], [address] [address] Basophils/100 WBC (Bld) 0.8 % Normal [facility] Comment on above: Performed By: #### C BCA, CMP, 01114-4, THYR #### [facility] ([id number]) [address] [place] [address] 74001 #### 92738-5, 2088-06 #### [facility] ([id number]) [address] [place] [address], [facility] [address] [place] [address] Eosinophils (Bld) [#/Vol] 0.3 10*3/uL Normal 0.0-0.4 [facility] Comment on above: Performed By: #### C BCA, CMP, 41502-5, THYR #### [facility] ([id number]) [address] [place] [address] 90040 #### 23559-2, 2088-06 #### [facility] ([id number]) [address] [facility], [address] [place] [address] Eosinophils/100 WBC (Bld) 3.7 % Normal [facility] Comment on above: Performed By: #### C BCA, CMP, 21141-4, THYR #### [facility] ([id number]) [address] [place] [address] 87775 #### 57732-9, 2088-06 #### [facility] ([id number]) [address] [facility], [address] [place] [address] Erythrocyte distribution width (RBC) [Ratio] 14.6 % Normal 11.5-15.0 [facility] Comment on above: Performed By: #### C BCA, CMP, 36486-7, THYR #### [facility] ([id number]) [address] [place] [address] 22799 #### 24032-3, 2088-06 #### [facility] ([id number]) [address] [facility], [address] [place] [address] Hematocrit (Bld) [Volume fraction] 31.9 % Low 35-47 [facility] Comment on above: Performed By: #### C BCA, CMP, 68209-1, THYR #### [facility] ([id number]) [address] [place] [address] 668[address] #### 54542-1, 2088-06 #### [facility] ([id number]) [address] [facility], [address] [place] [address] Hemoglobin (Bld) [Mass/Vol] 10.9 g/dL Low 11.7-15.5 [facility] Comment on above: Performed By: #### C BCA, CMP, 34659-6, THYR #### [facility] ([id number]) [address] [place] [address] 36920 #### 86410-2, 2088-06 #### [facility] ([id number]) [address], [address] [place] [address] Lymphocytes (Bld) [#/Vol] 2.6 10*3/uL Normal 1.0-3.5 [facility] Comment on above: Performed By: #### C BCA, CMP, 87549-3, THYR #### [facility] ([id number]) [address] [place] [address] 64114 #### 13352-8, 2088-06 #### [facility] ([id number]) [address], [address] [place] [address] Lymphocytes/100 WBC (Bld) 28.6 % Normal [facility] Comment on above: Performed By: #### C BCA, CMP, 29143-0, THYR #### [facility] ([id number]) [address] [place] [address] 88889 #### 27038-7, 2088-06 #### [facility] ([id number]) [address], [address] [place] [address] MCH (RBC) [Entitic mass] 27.4 pg Normal 27-34 [facility] Comment on above: Performed By: #### C BCA, CMP, 52946-5, THYR #### [facility] ([id number]) [address] [place] [address] 81769 #### 65233-3, 2088-06 #### [facility] ([id number]) [address], [address] [place] [address] MCHC (RBC) [Mass/Vol] 34.2 g/dL Normal 32-36 [facility] Comment on above: Performed By: #### C BCA, CMP, 01871-3, THYR #### [facility] ([id number]) [address] [place] [address] 44819 #### 49750-2, 2088-06 #### [facility] ([id number]) [address], [address] [place] [address] MCV (RBC) [Entitic vol] 80 fL Normal 80-100 [facility] Comment on above: Performed By: #### C BCA, CMP, 60040-1, THYR #### [facility] ([id number]) [address] [place] [address] 10061 #### 91878-1, 2088-06 #### [facility] ([id number]) [address], [address] [place] [address] Monocytes (Bld) [#/Vol] 0.8 10*3/uL Normal 0-0.9 [facility] Comment on above: Performed By: #### C BCA, CMP, 05253-1, THYR #### [facility] ([id number]) [address] [place] [address] 54882 #### 98950-2, 2088-06 #### [facility] ([id number]) [address], [address] [place] [address] Monocytes/100 WBC (Bld) 8.1 % Normal [facility] Comment on above: Performed By: #### C BCA, CMP, 82439-6, THYR #### [facility] ([id number]) [address] [place] [address] 33231 #### 97085-7, 2088-06 #### [facility] ([id number]) [address], [address] [place] [address] Neutrophils/100 WBC (Bld) 58.8 % Normal [facility] Comment on above: Performed By: #### C BCA, CMP, 49968-2, THYR #### [facility] ([id number]) [address] [place] [address] 92556 #### 08057-0, 2088-06 #### [facility] ([id number]) [address], [address] [place] [address] Platelet mean volume (Bld) [Entitic vol] 8.3 fL Normal 7-12 [facility] Comment on above: Performed By: #### C BCA, CMP, 44836-6, THYR #### [facility] ([id number]) [address] [place] [address] 25828 #### 70997-5, 2088-06 #### [facility] ([id number]) [address], [address] [place] [address] Platelets (Bld) [#/Vol] 271 10*3/uL Normal 150-450 [facility] Comment on above: Performed By: #### C BCA, CMP, 43264-5, THYR #### [facility] ([id number]) [address] [place] [address] 01297 #### 46771-0, 2088-06 #### [facility] ([id number]) [address], [address] [place] [address] RBC COUNT 3.98 X10E12/L Normal 3.80-5.20 [facility] Comment on above: Performed By: #### C BCA, CMP, 93667-2, THYR #### [facility] ([id number]) [address] [place] [address] 92888 #### 04625-1, 2088-06 #### [facility] ([id number]) [address], [address] [place] [address] WBC (Bld) [#/Vol] 9.2 10*3/uL Normal 4.0-11.0 [facility] Comment on above: Performed By: #### C BCA, CMP, 12435-2, THYR #### [facility] ([id number]) [address] [place] [address] 98364 #### 93161-0, 2088-06 #### [facility] ([id number]) [address] [facility], [address] [place] [address] COMPREHENSIVE METABOLIC PANE Ace 07-26-2023 Albumin [Mass/Vol] 3.2 g/dL Normal 3.2-5.3 [facility] Comment on above: Performed By: #### C BCA, CMP, 90960-8, THYR #### [facility] ([id number]) [address] [place] [address] 97748 #### 07857-9, 2088-06 #### [facility] ([id number]) [address] [facility], [address] [place] [address] ALP [Catalytic activity/Vol] 105 U/L Normal 39-130 [facility] Comment on above: Performed By: #### C BCA, CMP, 27686-4, THYR #### [facility] ([id number]) [address] [place] [address] 22936 #### 04444-3, 2088-06 #### [facility] ([id number]) [address] [facility], [address] [place] [address] ALT [Catalytic activity/Vol] 10 U/L Normal 0-31 [facility] Comment on above: Performed By: #### C BCA, CMP, 25309-3, THYR #### [facility] ([id number]) [address] [place] [address] 91303 #### 41856-7, 2088-06 #### [facility] ([id number]) [address], [address] [place] [address] Anion gap [Moles/Vol] 12 mmol/L Normal 5-15 [facility] Comment on above: Performed By: #### C BCA, CMP, 49228-4, THYR #### [facility] ([id number]) [address] [place] [address] 77375 #### 02955-5, 2088-06 #### [facility] ([id number]) [address] [facility], [address] [place] [address] AST [Catalytic activity/Vol] 14 U/L Normal 0-41 [facility] Comment on above: Performed By: #### C BCA, CMP, 41894-8, THYR #### [facility] ([id number]) [address] [place] [address] 02577 #### 99211-8, 2088-06 #### [facility] ([id number]) [address] [facility], [address] [place] [address] Bilirubin [Mass/Vol] 0.4 mg/dL Normal 0.3-1.2 [facility] Comment on above: Performed By: #### C BCA, CMP, 57756-1, THYR #### [facility] ([id number]) [address] [place] [address] 09832 #### 46958-9, 2088-06 #### [facility] ([id number]) [address] [place] [address] Calcium [Mass/Vol] 9.0 mg/dL Normal 8.5-10.5 [facility] Comment on above: Performed By: #### C BCA, CMP, 31024-7, THYR #### [facility] ([id number]) [address] [place] [address] 78212 #### 82473-7, 2088-06 #### [facility] ([id number]) [address] [place] [address] Chloride [Moles/Vol] 96 mmol/L Low 98-109 [facility] Comment on above: Performed By: #### C BCA, CMP, 54427-6, THYR #### [facility] ([id number]) [address] [place] [address] 01906 #### 41047-2, 2088-06 #### [facility] ([id number]) [address], [address] [place] [address] CO2 [Moles/Vol] 22 mmol/L Normal 22-32 [facility] Comment on above: Performed By: #### C BCA, CMP, 51301-7, THYR #### [facility] ([id number]) [address] [place] [address] 15134 #### 66486-9, 2088-06 #### [facility] ([id number]) [address], [address] [place] [address] Creatinine [Mass/Vol] 2.38 mg/dL High 0.40-1.00 [facility] Comment on above: Result Comment: METH OD TRACEABLE TO IDMS STANDARD Performed By: #### C BCA, CMP, 91849-0, THYR #### [facility] ([id number]) [address] [place] [address] 28066 #### 67982-4, 2088-06 #### [facility] ([id number]) [address], [address] [place] [address] GFR/1.73 sq M.predicted among non-blacks MDRD (S/P/Bld) [Vol rate/Area] 23 mL/min/{1.73_m2} Low >59 [facility] Comment on above: Result Comment: Reported eGFR is based on the CKD-EPI 2020 equation that does not use a race coefficient. Performed By: #### C BCA, CMP, 78474-6, THYR #### [facility] ([id number]) [address] [place] [address]122 #### 34165-7, 2088-06 #### [facility] ([id number]) [address], [address] [place] [address] Glucose [Mass/Vol] 116 mg/dL High 65-99 [facility] Comment on above: Performed By: #### C BCA, CMP, 40101-1, THYR #### [facility] ([id number]) [address] [place] [address] 51224 #### 93453-3, 2088-06 #### [facility] ([id number]) [address], [address] [place] [address] Potassium [Moles/Vol] 3.3 mmol/L Low 3.5-5.0 [facility] Comment on above: Performed By: #### C BCA, CMP, 58179-5, THYR #### [facility] ([id number]) [address] [place] [address] 30135 #### 71140-9, 2088-06 #### [facility] ([id number]) [address], [address] [place] [address] Protein [Mass/Vol] 7.0 g/dL Normal 6.0-8.0 [facility] Comment on above: Performed By: #### C BCA, CMP, 56155-1, THYR #### [facility] ([id number]) [address] [place] [address] 97951 #### 35945-4, 2088-06 #### [facility] ([id number]) [address] [place] [address] Sodium [Moles/Vol] 130 mmol/L Low 134-146 [facility] Comment on above: Performed By: #### C BCA, CMP, 74273-0, THYR #### [facility] ([id number]) [address] [place] [address] 70049 #### 20015-6, 2088-06 #### [facility] ([id number]) [address], [address] [place] [address] Urea nitrogen [Mass/Vol] 43 mg/dL High 5-23 [facility] Comment on above: Performed By: #### C MARQUES, CMP, 43181-6, THYR #### [facility] ([id number]) [address] [place] [address] 26885 #### 41267-6, 2088-06 #### [facility] ([id number]) [address], [address] [place] [address] Glucose Glucometer (BldC) [M ass/Vol]on 07-26-2023 Glucose [Mass/Vol] 174 mg/dL High 65-99 [facility] MAGNESIUMon 07-26-2023 Magnesium [Mass/Vol] 1.9 mg/dL Normal 1.8-2.6 [facility] Comment on above: Performed By: #### C BCA, CMP, 43566-1, THYR #### [facility] ([id number]) [address] [place] [address] 25473 #### 03009-9, 2088-06 #### [facility] ([id number]) [address], [address] [place] [address] CBC AND AUTO DIFFon 07-25-19 24 ABSOLUTE BASOPHIL 0.1 X10E9/L Normal 0.0-0.2 [facility] Comment on above: Performed By: #### C BCA, CMP, 25343-7, THYR #### [facility] ([id number]) [address] [place] [address] 02245 #### 55820-4, 2088-06 #### [facility] ([id number]) [facility] [facility], [address] [place] [address] ABSOLUTE NEUTROPHIL 6.6 X10E9/L Normal 1.5-6.6 [facility] Comment on above: Performed By: #### C BCA, CMP, 82025-6, THYR #### [facility] ([id number]) [address] [place] [address] 58648 #### 90926-4, 2088-06 #### [facility] ([id number]) [address] [place] [address], [address] [place] [address] Basophils/100 WBC (Bld) 0.7 % Normal [facility] Comment on above: Performed By: #### C BCA, CMP, 98291-9, THYR #### [facility] ([id number]) [address] [place] [address] 05051 #### 86682-6, 2088-06 #### [facility] ([id number]) [address] [place] [address], [address] [place] [address] Eosinophils (Bld) [#/Vol] 0.3 10*3/uL Normal 0.0-0.4 [facility] Comment on above: Performed By: #### C BCA, CMP, 29756-9, THYR #### [facility] ([id number]) [address] [place] [address] 87050 #### 34881-6, 2088-06 #### [facility] ([id number]) [address] [place] [address], [address] [place] [address] Eosinophils/100 WBC (Bld) 2.8 % Normal [facility] Comment on above: Performed By: #### C BCA, CMP, 89300-5, THYR #### [facility] ([id number]) [address] [place] [address] 76133 #### 62711-8, 2088-06 #### [facility] ([id number]) [address] [facility], [address] [place] [address] Erythrocyte distribution width (RBC) [Ratio] 14.4 % Normal 11.5-15.0 [facility] Comment on above: Performed By: #### C MARQUES, CMP, 54091-7, THYR #### [facility] ([id number]) [address] [place] [address] #### 53198-3, 2088-06 #### [facility] ([id number]) [address] [facility], [address] [place] [address] Hematocrit (Bld) [Volume fraction] 36.8 % Normal 35-47 [facility] Comment on above: Performed By: #### C BCA, CMP, 70330-7, THYR #### [facility] ([id number]) [address] [place] [address] #### 52327-8, 2088-06 #### [facility] ([id number]) [address] [facility], [address] [place] [address]279 Hemoglobin (Bld) [Mass/Vol] 12.5 g/dL Normal 11.7-15.5 [facility] Comment on above: Performed By: #### C BCA, CMP, 41794-7, THYR #### [facility] ([id number]) [address] [place] [address] #### 01631-0, 2088-06 #### [facility] ([id number]) [address] [facility] [place] [address] Lymphocytes (Bld) [#/Vol] 2.1 10*3/uL Normal 1.0-3.5 [facility] Comment on above: Performed By: #### C BCA, CMP, 59524-8, THYR #### [facility] ([id number]) [address] [place] [address] 57056 #### 53716-8, 2088-06 #### [facility] ([id number]) [address], [address] [place] [address] Lymphocytes/100 WBC (Bld) 20.8 % Normal [facility] Comment on above: Performed By: #### C BCA, CMP, 91079-9, THYR #### [facility] ([id number]) [address] [place] [address] 94711 #### 91236-1, 2088-06 #### [facility] ([id number]) [address] [facility], [address] [place] [address] MCH (RBC) [Entitic mass] 27.3 pg Normal 27-34 [facility] Comment on above: Performed By: #### C BCA, CMP, 13506-5, THYR #### [facility] ([id number]) [address] [place] [address] 90764 #### 25146-5, 2088-06 #### [facility] ([id number]) [address] [facility], [address] [place] [address] MCHC (RBC) [Mass/Vol] 34.0 g/dL Normal 32-36 [facility] Comment on above: Performed By: #### C BCA, CMP, 68833-8, THYR #### [facility] ([id number]) [address] [place] [address] 95865 #### 88655-9, 2088-06 #### [facility] ([id number]) [address], [address] [place] [address] MCV (RBC) [Entitic vol] 80 fL Normal 80-100 [facility] Comment on above: Performed By: #### C BCA, CMP, 80895-7, THYR #### [facility] ([id number]) [address] [place] [address] 14473 #### 59133-5, 2088-06 #### [facility] ([id number]) [address], [address] [place] [address] Monocytes (Bld) [#/Vol] 0.9 10*3/uL Normal 0-0.9 [facility] Comment on above: Performed By: #### C BCA, CMP, 47927-7, THYR #### [facility] ([id number]) [address] [place] [address] 70584 #### 60757-3, 2088-06 #### [facility] ([id number]) [address], [address] [place] [address] Monocytes/100 WBC (Bld) 8.8 % Normal [facility] Comment on above: Performed By: #### C BCA, CMP, 15590-4, THYR #### [facility] ([id number]) [address] [place] [address] 67931 #### 80717-0, 2088-06 #### [facility] ([id number]) [address], [address] [place] [address] Neutrophils/100 WBC (Bld) 66.9 % Normal [facility] Comment on above: Performed By: #### C BCA, CMP, 42297-3, THYR #### [facility] ([id number]) [address] [place] [address] 78098 #### 12469-7, 2088-06 #### [facility] ([id number]) [address], [address] [place] [address] Platelet mean volume (Bld) [Entitic vol] 8.5 fL Normal 7-12 [facility] Comment on above: Performed By: #### C BCA, CMP, 04930-5, THYR #### [facility] ([id number]) [address] [place] [address] 24310 #### 26162-2, 2088-06 #### [facility] ([id number]) [address], [address] [place] [address] Platelets (Bld) [#/Vol] 248 10*3/uL Normal 150-450 [facility] Comment on above: Performed By: #### C BCA, CMP, 23700-3, THYR #### [facility] ([id number]) [address] [place] [address] 37083 #### 63421-4, 2088-06 #### [facility] ([id number]) [address] [facility], [address] [place] [address] RBC COUNT 4.58 X10E12/L Normal 3.80-5.20 [facility] Comment on above: Performed By: #### C BCA, CMP, 89133-9, THYR #### [facility] ([id number]) [address] [place] [address] 49587 #### 93739-3, 2088-06 #### [facility] ([id number]) [address], [address] [place] [address] WBC (Bld) [#/Vol] 9.9 10*3/uL Normal 4.0-11.0 [facility] Comment on above: Performed By: #### C BCA, CMP, 74904-1, THYR #### [facility] ([id number]) [address] [place] [address] 92540 #### 91011-7, 2088-06 #### [facility] ([id number]) [address], [address] [place] [address] COMPREHENSIVE METABOLIC PANE Ace 07-25-2023 Albumin [Mass/Vol] 3.7 g/dL Normal 3.2-5.3 [facility] Comment on above: Performed By: #### C BCA, CMP, 72660-0, THYR #### [facility] ([id number]) [address] [place] [address] 06253 #### 92825-7, 2088-06 #### [facility] ([id number]) [address] [place] [address], [address] [place] [address] ALP [Catalytic activity/Vol] 119 U/L Normal 39-130 [facility] Comment on above: Performed By: #### C BCA, CMP, 29234-6, THYR #### [facility] ([id number]) [address] [place] [address] 69690 #### 01096-2, 2088-06 #### [facility] ([id number]) [address] [facility], [address] [place] [address] ALT [Catalytic activity/Vol] 14 U/L Normal 0-31 [facility] Comment on above: Performed By: #### C BCA, CMP, 45387-0, THYR #### [facility] ([id number]) [address] [place] [address] 83153 #### 95687-2, 2088-06 #### [facility] ([id number]) [address] [place] [address], [address] [place] [address] Anion gap [Moles/Vol] 13 mmol/L Normal 5-15 [facility] Comment on above: Performed By: #### C BCA, CMP, 91378-7, THYR #### [facility] ([id number]) [address] [place] [address] 65531 #### 64568-4, 2088-06 #### [facility] ([id number]) [address] [facility], [address] [place] [address] AST [Catalytic activity/Vol] 20 U/L Normal 0-41 [facility] Comment on above: Performed By: #### C BCA, CMP, 61465-5, THYR #### [facility] ([id number]) [address] [place] [address] 69464 #### 53815-0, 2088-06 #### [facility] ([id number]) [address] [facility], [address] [place] [address] Bilirubin [Mass/Vol] 0.7 mg/dL Normal 0.3-1.2 [facility] Comment on above: Performed By: #### C BCA, CMP, 40027-3, THYR #### [facility] ([id number]) [address] [place] [address] 45425 #### 13852-5, 2088-06 #### [facility] ([id number]) [facility] [facility], [address] [place] [address] Calcium [Mass/Vol] 9.1 mg/dL Normal 8.5-10.5 [facility] Comment on above: Performed By: #### C BCA, CMP, 61413-2, THYR #### [facility] ([id number]) [address] [place] [address] 94433 #### 64981-1, 2088-06 #### [facility] ([id number]) [address] [facility], [address] [place] [address] Chloride [Moles/Vol] 97 mmol/L Low 98-109 [facility] Comment on above: Performed By: #### C BCA, CMP, 25539-5, THYR #### [facility] ([id number]) [address] [place] [address] 23062 #### 58551-4, 2088-06 #### [facility] ([id number]) [address] [facility], [address] [place] [address] CO2 [Moles/Vol] 21 mmol/L Low 22-32 [facility] Comment on above: Performed By: #### C MARQUES, CMP, 88350-2, THYR #### [facility] ([id number]) [address] [place] [address] 69400 #### 31707-2, 2088-06 #### [facility] ([id number]) [address] [facility], [address] [place] [address] Creatinine [Mass/Vol] 2.04 mg/dL High 0.40-1.00 [facility] Comment on above: Result Comment: METH OD TRACEABLE TO IDMS STANDARD Performed By: #### C MARQUES CMP, 59627-5, THYR #### [facility] ([id number]) [address] [place] [address] 39988 #### 41726-1, 2088-06 #### [facility] ([id number]) [address] [facility], [address] [place] [address] GFR/1.73 sq M.predicted among non-blacks MDRD (S/P/Bld) [Vol rate/Area] 27 mL/min/{1.73_m2} Low >59 [facility] Comment on above: Result Comment: Reported eGFR is based on the CKD-EPI 1 equation that does not use a race coefficient. Performed By: #### C BCA, CMP, 36940-9, THYR #### [facility] ([id number]) [address] [place] [address] 74608 #### 54222-4, 2088-06 #### [facility] ([id number]) [address] [facility], [address] [place] [address] Glucose [Mass/Vol] 187 mg/dL High 65-99 [facility] Comment on above: Performed By: #### C BCA, CMP, 41428-9, THYR #### [facility] ([id number]) [address] [place] [address] 92305 #### 68456-9, 2088-06 #### [facility] ([id number]) [address], [address] [place] [address] Potassium [Moles/Vol] 3.5 mmol/L Normal 3.5-5.0 [facility] Comment on above: Performed By: #### C BCA, CMP, 83077-3, THYR #### [facility] ([id number]) [address] [place] [address] 90089 #### 89131-4, 2088-06 #### [facility] ([id number]) [address], [address] [place] [address] Protein [Mass/Vol] 7.9 g/dL Normal 6.0-8.0 [facility] Comment on above: Performed By: #### C BCA, CMP, 28962-2, THYR #### [facility] ([id number]) [address] [place] [address] 52725 #### 23194-9, 2088-06 #### [facility] ([id number]) [address], [address] [place] [address] Sodium [Moles/Vol] 131 mmol/L Low 134-146 [facility] Comment on above: Performed By: #### C BCA, CMP, 59866-6, THYR #### [facility] ([id number]) [address] [place] [address] 66152 #### 22599-2, 2088-06 #### [facility] ([id number]) [address], [address] [place] [address] Urea nitrogen [Mass/Vol] 34 mg/dL High 5-23 [facility] Comment on above: Performed By: #### C MARQUES, NIKKY, 76344-4, THYR #### [facility] ([id number]) [address] [place] [address] 13673 #### 89993-0, 2088-06 #### [facility] ([id number]) [address], [address] [place] [address] Glucose Glucometer (BldC) [M ass/Vol]on 07-25-2023 Glucose [Mass/Vol] 245 mg/dL High 65-99 [facility] Glucose [Mass/Vol] 183 mg/dL High 65-99 [facility] Glucose [Mass/Vol] 207 mg/dL High 65-99 [facility] MAGNESIUMon 07-25-2023 Magnesium [Mass/Vol] 2.3 mg/dL Normal 1.8-2.6 [facility] Comment on above: Performed By: #### C MARQUES, NIKKY, 62557-1, THYR #### [facility] ([id number]) [address] [place] [address] 18929 #### 12843-1, 2088-06 #### [facility] ([id number]) [address], [address] [place] [address] POTASSIUMon 07-25-2023 Potassium [Moles/Vol] 4.1 mmol/L Normal 3.5-5.0 [facility] Comment on above: Performed By: #### C MARQUES, CMP, 23272-6, THYR #### [facility] ([id number]) [address] [place] [address] 01101 #### 45807-0, 2088-06 #### [facility] ([id number]) [address], [address] [place] [address] CBC AND AUTO DIFFon 07-24-19 ABSOLUTE BASOPHIL 0.1 X10E9/L Normal 0.0-0.2 [facility] Comment on above: Performed By: #### C BCA, CMP, 24783-3, THYR #### [facility] ([id number]) [address] [place] [address] 12575 #### 36056-6, 2088-06 #### [facility] ([id number]) [address], [address] [place] [address] ABSOLUTE NEUTROPHIL 5.4 X10E9/L Normal 1.5-6.6 [facility] Comment on above: Performed By: #### C BCA, CMP, 98161-7, THYR #### [facility] ([id number]) [address] [place] [address] 46665 #### 95571-2, 2088-06 #### [facility] ([id number]) [address] [facility], [address] [place] [address] Basophils/100 WBC (Bld) 0.7 % Normal [facility] Comment on above: Performed By: #### C BCA, CMP, 22233-9, THYR #### [facility] ([id number]) [address] [place] [address] 80893 #### 08526-5, 2088-06 #### [facility] ([id number]) [address] [facility], [address] [place] [address] Eosinophils (Bld) [#/Vol] 0.2 10*3/uL Normal 0.0-0.4 [facility] Comment on above: Performed By: #### C BCA, CMP, 96785-3, THYR #### [facility] ([id number]) [address] [place] [address] 28224 #### 21106-4, 2088-06 #### [facility] ([id number]) [address] [facility], [address] [place] [address] Eosinophils/100 WBC (Bld) 2.7 % Normal [facility] Comment on above: Performed By: #### C BCA, CMP, 48050-5, THYR #### [facility] ([id number]) [address] [place] [address] 68072 #### 90884-4, 2088-06 #### [facility] ([id number]) [address] [facility], [address] [place] [address] Erythrocyte distribution width (RBC) [Ratio] 14.3 % Normal 11.5-15.0 [facility] Comment on above: Performed By: #### C MARQUES, CMP, 08921-7, THYR #### [facility] ([id number]) [address] [place] [address] 79367 #### 83067-9, 2088-06 #### [facility] ([id number]) [facility] [facility], [address] [place] [address] Hematocrit (Bld) [Volume fraction] 35.1 % Normal 35-47 [facility] Comment on above: Performed By: #### Teresa MOHAN CMP, 50230-7, THYR #### [facility] ([id number]) [address] [place] [address] 88777 #### 32642-3, 2088-06 #### [facility] ([id number]) [address] [facility], [address] [place] [address] Hemoglobin (Bld) [Mass/Vol] 12.0 g/dL Normal 11.7-15.5 [facility] Comment on above: Performed By: #### Teresa MOHAN, CMP, 40372-3, THYR #### [facility] ([id number]) [address] [place] [address] 71055 #### 75821-2, 2088-06 #### [facility] ([id number]) [address] [facility], [address] [place] [address] Lymphocytes (Bld) [#/Vol] 2.3 10*3/uL Normal 1.0-3.5 [facility] Comment on above: Performed By: #### C BCA, CMP, 24711-2, THYR #### [facility] ([id number]) [address] [place] [address] 85230 #### 02627-3, 2088-06 #### [facility] ([id number]) [address] [facility], [address] [place] [address] Lymphocytes/100 WBC (Bld) 26.1 % Normal [facility] Comment on above: Performed By: #### C BCA, CMP, 70717-9, THYR #### [facility] ([id number]) [address] [place] [address] 82539 #### 92078-4, 2088-06 #### [facility] ([id number]) [address] [facility], [address] [place] [address] MCH (RBC) [Entitic mass] 27.2 pg Normal 27-34 [facility] Comment on above: Performed By: #### Teresa BCA, CMP, 11952-3, THYR #### [facility] ([id number]) [address] [place] [address] 84831 #### 19291-2, 2088-06 #### [facility] ([id number]) [address] [facility], [address] [place] [address] MCHC (RBC) [Mass/Vol] 34.2 g/dL Normal 32-36 [facility] Comment on above: Performed By: #### C BCA, CMP, 42574-6, THYR #### [facility] ([id number]) [address] [place] [address] 27301 #### 88939-0, 2088-06 #### [facility] ([id number]) [address], [address] [place] [address] MCV (RBC) [Entitic vol] 80 fL Normal 80-100 [facility] Comment on above: Performed By: #### C BCA, CMP, 22258-5, THYR #### [facility] ([id number]) [address] [place] [address] 58274 #### 72926-6, 2088-06 #### [facility] ([id number]) [address], [address] [place] [address] Monocytes (Bld) [#/Vol] 0.9 10*3/uL Normal 0-0.9 [facility] Comment on above: Performed By: #### C MARQUES, CMP, 72407-2, THYR #### [facility] ([id number]) [address] [place] [address] 16926 #### 96602-7, 2088-06 #### [facility] ([id number]) [address], [address] [place] [address] Monocytes/100 WBC (Bld) 9.8 % Normal [facility] Comment on above: Performed By: #### C MARQUES, CMP, 54508-2, THYR #### [facility] ([id number]) [address] [place] [address] 43035 #### 87919-4, 2088-06 #### [facility] ([id number]) [address], [address] [place] [address] Neutrophils/100 WBC (Bld) 60.7 % Normal [facility] Comment on above: Performed By: #### C BCA, CMP, 77962-3, THYR #### [facility] ([id number]) [address] [place] [address] 60947 #### 76604-0, 2088-06 #### [facility] ([id number]) [address], [address] [place] [address] Platelet mean volume (Bld) [Entitic vol] 8.7 fL Normal 7-12 [facility] Comment on above: Performed By: #### C BCA, CMP, 97037-6, THYR #### [facility] ([id number]) [address] [place] [address] 22597 #### 62965-2, 2088-06 #### [facility] ([id number]) [address], [address] [place] [address] Platelets (Bld) [#/Vol] 288 10*3/uL Normal 150-450 [facility] Comment on above: Performed By: #### C BCA, CMP, 61685-7, THYR #### [facility] ([id number]) [address] [place] [address] 32923 #### 70018-7, 2088-06 #### [facility] ([id number]) [address], [address] [place] [address] RBC COUNT 4.41 X10E12/L Normal 3.80-5.20 [facility] Comment on above: Performed By: #### C BCA, CMP, 21287-6, THYR #### [facility] ([id number]) [address] [place] [address] 51850 #### 01619-5, 2088-06 #### [facility] ([id number]) [address], [address] [place] [address] WBC (Bld) [#/Vol] 8.8 10*3/uL Normal 4.0-11.0 [facility] Comment on above: Performed By: #### C BCA, CMP, 97449-9, THYR #### [facility] ([id number]) [address] [place] [address] 65728 #### 52042-8, 2088-06 #### [facility] ([id number]) [address] [place] [address], [address] [place] [address] COMPREHENSIVE METABOLIC PANE Ace 07-24-2023 Albumin [Mass/Vol] 3.6 g/dL Normal 3.2-5.3 [facility] Comment on above: Performed By: #### C BCA, CMP, 83197-4, THYR #### [facility] ([id number]) [address] [place] [address] 64705 #### 95960-8, 2088-06 #### [facility] ([id number]) [address] [place] [address], [address] [place] [address] ALP [Catalytic activity/Vol] 120 U/L Normal 39-130 [facility] Comment on above: Performed By: #### C BCA, CMP, 82998-3, THYR #### [facility] ([id number]) [address] [place] [address] 44279 #### 02176-8, 2088-06 #### [facility] ([id number]) [address] [place] [address], [address] [place] [address] ALT [Catalytic activity/Vol] 11 U/L Normal 0-31 [facility] Comment on above: Performed By: #### C BCA, CMP, 68999-3, THYR #### [facility] ([id number]) [address] [place] [address] 94478 #### 78403-6, 2088-06 #### [facility] ([id number]) [address] [place] [address], [address] [place] [address] Anion gap [Moles/Vol] 11 mmol/L Normal 5-15 [facility] Comment on above: Performed By: #### C BCA, CMP, 26788-4, THYR #### [facility] ([id number]) [address] [place] [address] 42484 #### 74014-8, 2088-06 #### [facility] ([id number]) [address], [address] [place] [address] AST [Catalytic activity/Vol] 15 U/L Normal 0-41 [facility] Comment on above: Performed By: #### C BCA, CMP, 36524-6, THYR #### [facility] ([id number]) [address] [place] [address]49 #### 00004-4, 2088-06 #### [facility] ([id number]) [address] [place] [address], [address] [place] [address] Bilirubin [Mass/Vol] 0.5 mg/dL Normal 0.3-1.2 [facility] Comment on above: Performed By: #### C BCA, CMP, 68955-8, THYR #### [facility] ([id number]) [address] [place] [address]91 #### 68875-8, 2088-06 #### [facility] ([id number]) [address] [place] [address], [address] [place] [address] Calcium [Mass/Vol] 9.4 mg/dL Normal 8.5-10.5 [facility] Comment on above: Performed By: #### C BCA, CMP, 62553-0, THYR #### [facility] ([id number]) [address] [place] [address] 35951 #### 90081-8, 2088-06 #### [facility] ([id number]) [address] [place] [address], [address] [place] [address] Chloride [Moles/Vol] 101 mmol/L Normal 98-109 [facility] Comment on above: Performed By: #### C BCA, CMP, 82712-0, THYR #### [facility] ([id number]) [address] [place] [address] #### 89569-2, 2088-06 #### [facility] ([id number]) [address], [address] [place] [address] CO2 [Moles/Vol] 24 mmol/L Normal 22-32 [facility] Comment on above: Performed By: #### C BCA, CMP, 43596-9, THYR #### [facility] ([id number]) [address] [place] [address]9747 #### 82112-9, 2088-06 #### [facility] ([id number]) [address], [address] [place] [address] Creatinine [Mass/Vol] 2.02 mg/dL High 0.40-1.00 [facility] Comment on above: Result Comment: METH OD TRACEABLE TO IDMS STANDARD Performed By: #### C MARQUES, CMP, 39899-6, THYR #### [facility] ([id number]) [address] [place] [address]7081 #### 01937-1, 2088-06 #### [facility] ([id number]) [address], [address] [place] [address] GFR/1.73 sq M.predicted among non-blacks MDRD (S/P/Bld) [Vol rate/Area] 28 mL/min/{1.73_m2} Low >59 [facility] Comment on above: Result Comment: Reported eGFR is based on the CKD-EPI 2020 equation that does not use a race coefficient. Performed By: #### C BCA, CMP, 77977-7, THYR #### [facility] ([id number]) [address] [place] [address] 34209 #### 03894-7, 2088-06 #### [facility] ([id number]) [address], [address] [place] [address] Glucose [Mass/Vol] 68 mg/dL Normal 65-99 [facility] Comment on above: Performed By: #### C BCA, CMP, 61429-1, THYR #### [facility] ([id number]) [address] [place] [address] 43569 #### 67951-2, 2088-06 #### [facility] ([id number]) [address] [facility], [address] [place] [address] Potassium [Moles/Vol] 2.9 mmol/L Low 3.5-5.0 [facility] Comment on above: Performed By: #### C BCA, CMP, 29345-5, THYR #### [facility] ([id number]) [address] [place] [address] 15156 #### 07474-3, 2088-06 #### [facility] ([id number]) [address] [facility], [address] [place] [address] Protein [Mass/Vol] 7.9 g/dL Normal 6.0-8.0 [facility] Comment on above: Performed By: #### C BCA, CMP, 08566-5, THYR #### [facility] ([id number]) [address] [place] [address] 98890 #### 22896-3, 2088-06 #### [facility] ([id number]) [address], [address] [place] [address] Sodium [Moles/Vol] 136 mmol/L Normal 134-146 [facility] Comment on above: Performed By: #### C BCA, CMP, 03394-8, THYR #### [facility] ([id number]) [address] [place] [address] 16971 #### 68510-6, 2088-06 #### [facility] ([id number]) [address], [address] [place] [address] Urea nitrogen [Mass/Vol] 35 mg/dL High 5-23 [facility] Comment on above: Performed By: #### C BCA, CMP, 34890-7, THYR #### [facility] ([id number]) [address] [place] [address] 64881 #### 00122-6, 2088-06 #### [facility] ([id number]) [address], [address] [place] [address] Glucose Glucometer (BldC) [M ass/Vol]on 07-24-2023 Glucose [Mass/Vol] 245 mg/dL High 65-99 [facility] Glucose [Mass/Vol] 204 mg/dL High 65-99 [facility] Glucose [Mass/Vol] 134 mg/dL High 65-99 [facility] MAGNESIUMon 07-24-2023 Magnesium [Mass/Vol] 2.6 mg/dL Normal 1.8-2.6 [facility] Comment on above: Performed By: #### C BCA, CMP, 40551-2, THYR #### [facility] ([id number]) [address] [place] [address] 54132 #### 20035-5, 2088-06 #### [facility] ([id number]) [address], [address] [place] [address] Magnesium [Mass/Vol] 1.6 mg/dL Low 1.8-2.6 [facility] Comment on above: Performed By: #### C BCA, CMP, 54564-3, THYR #### [facility] ([id number]) [address] [place] [address] 35833 #### 02231-3, 2088-06 #### [facility] ([id number]) [address], [address] [place] [address] POTASSIUMon 07-24-2023 Potassium [Moles/Vol] 3.9 mmol/L Normal 3.5-5.0 [facility] Comment on above: Performed By: #### C BCA, CMP, 95846-7, THYR #### [facility] ([id number]) [address] [place] [address] 02912 #### 61597-7, 2088-06 #### [facility] ([id number]) [address], [address] [place] [address] CBC AND AUTO DIFFon 07-23-19 ABSOLUTE BASOPHIL 0.1 X10E9/L Normal 0.0-0.2 [facility] Comment on above: Performed By: #### C MARQUES, CMP, 83410-9, THYR #### [facility] ([id number]) [address] [place] [address] 40492 #### 09402-2, 2088-06 #### [facility] ([id number]) [address] [facility], [address] [place] [address] ABSOLUTE NEUTROPHIL 7.1 X10E9/L High 1.5-6.6 [facility] Comment on above: Performed By: #### C BCA, CMP, 80633-3, THYR #### [facility] ([id number]) [address] [place] [address] 96442 #### 63760-6, 2088-06 #### [facility] ([id number]) [address] [facility], [address] [place] [address] Basophils/100 WBC (Bld) 0.9 % Normal [facility] Comment on above: Performed By: #### C BCA, CMP, 68440-8, THYR #### [facility] ([id number]) [address] [place] [address] 47378 #### 25155-8, 2088-06 #### [facility] ([id number]) [address] [facility], [address] [place] [address] Eosinophils (Bld) [#/Vol] 0.3 10*3/uL Normal 0.0-0.4 [facility] Comment on above: Performed By: #### C BCA, CMP, 85127-9, THYR #### [facility] ([id number]) [address] [place] [address] 71756 #### 75112-3, 2088-06 #### [facility] ([id number]) [address] [place] [address], [address] [place] [address] Eosinophils/100 WBC (Bld) 2.5 % Normal [facility] Comment on above: Performed By: #### C BCA, CMP, 52972-0, THYR #### [facility] ([id number]) [address] [place] [address] 65299 #### 46554-4, 2088-06 #### [facility] ([id number]) [address] [place] [address], [address] [place] [address] Erythrocyte distribution width (RBC) [Ratio] 14.7 % Normal 11.5-15.0 [facility] Comment on above: Performed By: #### C BCA, CMP, 71218-7, THYR #### [facility] ([id number]) [address] [place] [address] 81428 #### 66318-1, 2088-06 #### [facility] ([id number]) [address] [place] [address], [address] [place] [address] Hematocrit (Bld) [Volume fraction] 39.8 % Normal 35-47 [facility] Comment on above: Performed By: #### C BCA, CMP, 79116-8, THYR #### [facility] ([id number]) [address] [place] [address] 32926 #### 95397-0, 2088-06 #### [facility] ([id number]) [address], [address] [place] [address] Hemoglobin (Bld) [Mass/Vol] 13.6 g/dL Normal 11.7-15.5 [facility] Comment on above: Performed By: #### C BCA, CMP, 75037-3, THYR #### [facility] ([id number]) [address] [place] [address] 11919 #### 20327-1, 2088-06 #### [facility] ([id number]) [address], [address] [place] [address] Lymphocytes (Bld) [#/Vol] 2.4 10*3/uL Normal 1.0-3.5 [facility] Comment on above: Performed By: #### C BCA, CMP, 94050-4, THYR #### [facility] ([id number]) [address] [place] [address] 59055 #### 88150-9, 2088-06 #### [facility] ([id number]) [address], [address] [place] [address] Lymphocytes/100 WBC (Bld) 21.8 % Normal [facility] Comment on above: Performed By: #### Teresa BCA, CMP, 98232-1, THYR #### [facility] ([id number]) [address] [place] [address] 81244 #### 72667-6, 2088-06 #### [facility] ([id number]) [address], [address] [place] [address] MCH (RBC) [Entitic mass] 27.5 pg Normal 27-34 [facility] Comment on above: Performed By: #### C BCA, CMP, 87460-1, THYR #### [facility] ([id number]) [address] [place] [address] 46723 #### 23609-9, 2088-06 #### [facility] ([id number]) [address], [address] [place] [address] MCHC (RBC) [Mass/Vol] 34.2 g/dL Normal 32-36 [facility] Comment on above: Performed By: #### C BCA, CMP, 40000-2, THYR #### [facility] ([id number]) [address] [place] [address] 88117 #### 92657-5, 2088-06 #### [facility] ([id number]) [address], [address] [place] [address] MCV (RBC) [Entitic vol] 80 fL Normal 80-100 [facility] Comment on above: Performed By: #### C BCA, CMP, 54035-9, THYR #### [facility] ([id number]) [address] [place] [address] 43634 #### 42419-0, 2088-06 #### [facility] ([id number]) [address], [address] [place] [address] Monocytes (Bld) [#/Vol] 1.0 10*3/uL High 0-0.9 [facility] Comment on above: Performed By: #### C BCA, CMP, 26460-7, THYR #### [facility] ([id number]) [address] [place] [address] 87533 #### 75308-0, 2088-06 #### [facility] ([id number]) [address], [address] [place] [address] Monocytes/100 WBC (Bld) 8.8 % Normal [facility] Comment on above: Performed By: #### C BCA, CMP, 62559-3, THYR #### [facility] ([id number]) [address] [place] [address] 58011 #### 79534-5, 2088-06 #### [facility] ([id number]) [address], [address] [place] [address] Neutrophils/100 WBC (Bld) 66.0 % Normal [facility] Comment on above: Performed By: #### C BCA, CMP, 26751-5, THYR #### [facility] ([id number]) [address] [place] [address] 83720 #### 38416-5, 2088-06 #### [facility] ([id number]) [address], [address] [place] [address] Platelet mean volume (Bld) [Entitic vol] 8.1 fL Normal 7-12 [facility] Comment on above: Performed By: #### C BCA, CMP, 59051-6, THYR #### [facility] ([id number]) [address] [place] [address] 17838 #### 90697-3, 2088-06 #### [facility] ([id number]) [address], [address] [place] [address] Platelets (Bld) [#/Vol] 326 10*3/uL Normal 150-450 [facility] Comment on above: Performed By: #### C BCA, CMP, 67123-1, THYR #### [facility] ([id number]) [address] [place] [address] 07105 #### 51390-6, 2088-06 #### [facility] ([id number]) [address], [address] [place] [address] RBC COUNT 4.95 X10E12/L Normal 3.80-5.20 [facility] Comment on above: Performed By: #### C BCA, CMP, 88576-7, THYR #### [facility] ([id number]) [address] [place] [address] 88772 #### 70556-0, 2088-06 #### [facility] ([id number]) [address], [address] [place] [address] WBC (Bld) [#/Vol] 10.8 10*3/uL Normal 4.0-11.0 [facility] Comment on above: Performed By: #### C BCA, CMP, 41769-3, THYR #### [facility] ([id number]) [address] [place] [address] 38850 #### 37541-1, 2088-06 #### [facility] ([id number]) [address], [address] [place] [address] COMPREHENSIVE METABOLIC PANE Ace 07-23-2023 Albumin [Mass/Vol] 4.1 g/dL Normal 3.2-5.3 [facility] Comment on above: Performed By: #### C BCA, CMP, 40258-3, THYR #### [facility] ([id number]) [address] [place] [address] 12212 #### 20037-1, 2088-06 #### [facility] ([id number]) [address], [address] [place] [address] ALP [Catalytic activity/Vol] 133 U/L High 39-130 [facility] Comment on above: Performed By: #### C BCA, CMP, 07407-4, THYR #### [facility] ([id number]) [address] [place] [address] 68567 #### 30253-9, 2088-06 #### [facility] ([id number]) [address], [address] [place] [address] ALT [Catalytic activity/Vol] 12 U/L Normal 0-31 [facility] Comment on above: Performed By: #### C BCA, CMP, 49032-0, THYR #### [facility] ([id number]) [address] [place] [address] 16252 #### 63596-0, 2088-06 #### [facility] ([id number]) [address] [facility], [address] [place] [address] Anion gap [Moles/Vol] 13 mmol/L Normal 5-15 [facility] Comment on above: Performed By: #### C BCA, CMP, 41292-9, THYR #### [facility] ([id number]) [address] [place] [address] 75042 #### 98553-3, 2088-06 #### [facility] ([id number]) [address] [facility], [address] [place] [address] AST [Catalytic activity/Vol] 18 U/L Normal 0-41 [facility] Comment on above: Performed By: #### C BCA, CMP, 55490-4, THYR #### [facility] ([id number]) [address] [place] [address] 09417 #### 86754-7, 2088-06 #### [facility] ([id number]) [address] [facility], [address] [place] [address] Bilirubin [Mass/Vol] 0.4 mg/dL Normal 0.3-1.2 [facility] Comment on above: Performed By: #### C BCA, CMP, 51173-4, THYR #### [facility] ([id number]) [address] [place] [address] 97145 #### 66537-4, 2088-06 #### [facility] ([id number]) [address], [address] [place] [address] Calcium [Mass/Vol] 9.6 mg/dL Normal 8.5-10.5 [facility] Comment on above: Performed By: #### C BCA, CMP, 32536-5, THYR #### [facility] ([id number]) [address] [place] [address] 07644 #### 04727-2, 2088-06 #### [facility] ([id number]) [address] [facility], [address] [place] [address] Chloride [Moles/Vol] 99 mmol/L Normal 98-109 [facility] Comment on above: Performed By: #### C BCA, CMP, 47000-1, THYR #### [facility] ([id number]) [address] [place] [address] 87163 #### 60608-1, 2088-06 #### [facility] ([id number]) [address] [facility], [address] [place] [address] CO2 [Moles/Vol] 23 mmol/L Normal 22-32 [facility] Comment on above: Performed By: #### C BCA, CMP, 61941-6, THYR #### [facility] ([id number]) [address] [place] [address] 16687 #### 31904-4, 2088-06 #### [facility] ([id number]) [address], [address] [place] [address] Creatinine [Mass/Vol] 2.14 mg/dL High 0.40-1.00 [facility] Comment on above: Result Comment: METH OD TRACEABLE TO IDMS STANDARD Performed By: #### C BCA, CMP, 14279-8, THYR #### [facility] ([id number]) [address] [place] [address] 14244 #### 88757-6, 2088-06 #### [facility] ([id number]) [address], [address] [place] [address] GFR/1.73 sq M.predicted among non-blacks MDRD (S/P/Bld) [Vol rate/Area] 26 mL/min/{1.73_m2} Low >59 [facility] Comment on above: Result Comment: Reported eGFR is based on the CKD-EPI 2020 equation that does not use a race coefficient. Performed By: #### C MARQUES, CMP, 62702-9, THYR #### [facility] ([id number]) [address] [place] [address] 55298 #### 63294-5, 2088-06 #### [facility] ([id number]) [address], [address] [place] [address] Glucose [Mass/Vol] 159 mg/dL High 65-99 [facility] Comment on above: Performed By: #### C BCA, CMP, 97600-5, THYR #### [facility] ([id number]) [address] [place] [address] 04741 #### 41223-5, 2088-06 #### [facility] ([id number]) [address], [address] [place] [address] Potassium [Moles/Vol] 3.4 mmol/L Low 3.5-5.0 [facility] Comment on above: Performed By: #### C BCA, CMP, 80680-1, THYR #### [facility] ([id number]) [address] [place] [address] 43782 #### 16159-0, 2088-06 #### [facility] ([id number]) [address], [address] [place] [address] Protein [Mass/Vol] 9.4 g/dL High 6.0-8.0 [facility] Comment on above: Performed By: #### C BCA, CMP, 35396-6, THYR #### [facility] ([id number]) [address] [facility], [place] [address] #### 07202-6, 2088-06 #### [facility] ([id number]) [address], [address] [place] [address] Sodium [Moles/Vol] 135 mmol/L Normal 134-146 [facility] Comment on above: Performed By: #### C BCA, CMP, 48854-9, THYR #### [facility] ([id number]) [address] [place] [address] 88053 #### 61404-7, 2088-06 #### [facility] ([id number]) [address] [facility], [address] [place] [address] Urea nitrogen [Mass/Vol] 38 mg/dL High 5-23 [facility] Comment on above: Performed By: #### C BCA, CMP, 32449-9, THYR #### [facility] ([id number]) [address] [place] [address] 68130 #### 18433-6, 2088-06 #### [facility] ([id number]) [address], [address] [place] [address] CT BRAIN WO CONT STROKE ALER Ton [...] Dorsey MD on 07/23/2023 9:24 AM Normal [facility] CT CTA CAROTIDon 07-23-2023 CT CTA CAROTID [...] as low as reasonably achievable.. The [place] symptomatic carotid endarterectomy trial (NASCET) method for [...] Romero MD on 07/23/2023 9:36 AM Normal [facility] CT CTA HEADon 07-23-2023 CT CTA HEAD [...] Seals MD on 07/23/2023 9:36 AM Normal [facility] DIRECT LDLon 07-23-2023 Cholesterol in LDL [Mass/Vol] 190 mg/dL High <130 [facility] Comment on above: Result Comment: LDL <100 mg/dL - Desirable LDL 130-159 mg/dL - Borderline High Risk LDL >160 mg/dL - High Risk Performed By: #### C MARQUES, [facility], 75422-5, THYR #### [facility] ([id number]) [address] [place] [address], [place] [address] #### 54440-5, 2089-1 #### [facility] ([id number]) [address] [place] [address], [address] [place] [address] Glucose Glucometer (BldC) [M ass/Vol]on 07-23-2023 Glucose [Mass/Vol] 116 mg/dL High 65-99 [facility] Glucose [Mass/Vol] 155 mg/dL High 65-99 [facility] Glucose [Mass/Vol] 109 mg/dL High 65- [facility] Glucose [Mass/Vol] 155 mg/dL High 65-99 [facility] HGB A1C (GLYCO-HGB)on 2023 Glucose [Mass/Vol] 171 mg/dL Normal [facility] Comment on above: Performed By: #### C BCA, CMP, 16394-7, THYR #### [facility] ([id number]) [address] [place] [address] 24457 #### 27778-3, 2088-06 #### [facility] ([id number]) [address] [facility], [address] [place] [address] HbA1c (Bld) [Mass fraction] 7.6 % High 4.4-5.6 [facility] Comment on above: Result Comment: NOTE ADA Guidelines Result HgbA1c Normal : less than 5.7 % Prediabetes : 5.7 % to 6.4 % Diabetes : > 6.4 % Use with caution in patients with abnormal hemoglobin variants as the half-life of red blood cells and in vivo glycation rates are affected. Performed By: #### C BCA, CMP, 35122-8, THYR #### [facility] ([id number]) [address] [place] [address] 14078 #### 75524-9, 2088-06 #### [facility] ([id number]) [address] [facility], [address] [place] [address] Lipid 1996 panelon 4 Cholesterol [Mass/Vol] 327 mg/dL High 150-200 [facility] Comment on above: Performed By: #### C BCA, CMP, 58823-3, THYR #### [facility] ([id number]) [address] [place] [address] 99864 #### 14433-2, 2088-06 #### [facility] ([id number]) [address], [address] [place] [address] Cholesterol in HDL [Mass/Vol] 36 mg/dL Low >39 [facility] Comment on above: Result Comment: HDL <40 mg/dL - High Risk HDL > or = 40mg/dL- Desirable HDL >60 mg/dL - Negative Risk Performed By: #### C BCA, CMP, 57192-1, THYR #### [facility] ([id number]) [address] [place] [address] 68698 #### 49218-0, 2088-06 #### [facility] ([id number]) [address] [place] [address], [address] [place] [address] Cholesterol in VLDL [Mass/Vol] 99 mg/dL High 0-30 [facility] Comment on above: Performed By: #### C BCA, CMP, 11095-3, THYR #### [facility] ([id number]) [address] [place] [address] #### 15934-6, 2088-06 #### [facility] ([id number]) [address] [place] [address], [address] [place] [address] CHOLESTEROL:HDL 9.1 High 1.0-5.0 [facility] Comment on above: Performed By: #### C BCA, CMP, 67573-6, THYR #### [facility] ([id number]) [address] [place] [address] #### 18952-6, 2088-06 #### [facility] ([id number]) [address] [place] [address], [address] [place] [address] LDL (CALC) RESULT NOT REPORTED DUE TO HIGH TRIGLYCERIDE Normal <130 [facility] Comment on above: Performed By: #### C BCA, CMP, 39713-1, THYR #### [facility] ([id number]) [address] [place] [address] #### 55975-6, 2088-06 #### [facility] ([id number]) [address], [address] [place] [address] Triglyceride [Mass/Vol] 494 mg/dL High 27-150 [facility] Comment on above: Performed By: #### C BCA, CMP, 27063-6, THYR #### [facility] ([id number]) [address] [place] [address], [place] [address] #### 88726-9, 2088-06 #### [facility] ([id number]) [address] [facility], [address] [place] [address] MR BRAIN WO CONTon MR BRAIN WO [...] Mccall MD on 07/23/2023 11:51 AM Normal [facility] THYROID PROFILEon 07-23-2023 Free T4 [Mass/Vol] 1.10 ng/dL Normal 0.61-1.60 [facility] Comment on above: Performed By: #### C BCA, CMP, 11317-4, THYR #### [facility] ([id number]) [address] [place] [address] #### 54365-9, 2088-06 #### [facility] ([id number]) [address] [place] [address], [address] [place] [address] TSH 2.88 uIU/mL Normal 0.49-4.67 [facility] Comment on above: Performed By: #### C BCA, CMP, 61984-1, THYR #### [facility] ([id number]) [address] [place] [address] #### 27271-7, 2088-06 #### [facility] ([id number]) [address] [place] [address], [address] [place] [address] TROPONIN Ion 07-23-2023 Troponin I.cardiac [Mass/Vol] 0.01 ng/mL Normal 0.00-0.04 [facility] Comment on above: Performed By: #### C BCA, CMP, 10255-7, THYR #### [facility] ([id number]) [address] [place] [address] #### 66588-1, 2088-06 #### [facility] ([id number]) [address] [place] [address], [address] [place] [address] Troponin I.cardiac [Mass/Vol] 0.03 ng/mL Normal 0.00-0.04 [facility] Comment on above: Performed By: #### C BCA, CMP, 93721-4, THYR #### [facility] ([id number]) [address] [place] [address] #### 88905-5, 2088-06 #### [facility] ([id number]) [address] [facility], [address] [place] [address] A1C HEMOGLOBINon 05-06-2023 HbA1c (Bld) [Mass fraction] 6.8 % [facility] Other Glucose - FINGER STICKon Glucose [Mass/Vol] 177 mg/dL [facility] Other HbA1c (Bld) [Mass fraction]o n 05-06-2023 A1C HEMOGLOBIN [facility] Other A1C HEMOGLOBINon 10-15-2021 HbA1c (Bld) [Mass fraction] 8 % [facility] Other Glucose - FINGER STICKon Glucose [Mass/Vol] 290 mg/dL [facility] Other HbA1c (Bld) [Mass fraction]o n 10-15-2021 A1C HEMOGLOBIN [facility] Other A1C HEMOGLOBINon 07-17-2021 HbA1c (Bld) [Mass fraction] 7.2 % [facility] Other Glucose - FINGER STICKon Glucose [Mass/Vol] 194 mg/dL [facility] Other HbA1c (Bld) [Mass fraction]o n 07-17-2021 A1C HEMOGLOBIN [facility] Other Creatinine W/GFR Point of Ca reon 09-07-2019 Creatinine [Mass/Vol] 1.95 mg/dL High 0.51 - 1.19 mg/dL [place] GFR Non- 27 mL/min Low >60 [place] GFR/1.73 sq M predicted among non-blacks MDRD (S/P/Bld) [Vol rate/Area] 32 mL/min/{1.73_m2} Low >60 [place], [place] GFR/1.73 sq M predicted among non-blacks MDRD (S/P/Bld) [Vol rate/Area] [place] Comment on above: Average GFR for 50-5 9 years old: 93 mL/min/1.73sq m Chronic Kidney Disease: <60 mL/min/1.73sq m Kidney failure: <15 mL/min/1.73sq m eGFR calculated using average adult body mass. Additional eGFR calculator available at: http://www.[employer]/multiple_crcl_2012.htm OPERATIVE REPORTon 0 OPERATIVE REPORT [address] [address] OPERATIVE REPORT PATIENT NAME: OLY HARRELL : 1960 MED REC NO: [id number] ROOM: ACCOUNT NO: [id number] ADMIT DATE: 09/07/2019 PROVIDER: Martir Bang DATE [...] recovery room in good condition. 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- Counseled patient that she [...] or sooner ifnew symptoms develop.Marla New MD [facility] PROGRESSon 10-04-2017 Protein mass conc HNO ID: [id number] thor: Marla Webb: (none)Author Type: PhysicianType: Progress NotesFiled: 10/04/2017 8:20 PMNote Text:Proliferative Diabetic Retinopathy, Both Eyes:- 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- Counseled patient that she [...] or sooner ifnew symptoms develop.Marla New MD [facility] PROGRESSon 08-30-2017 Protein mass conc HNO ID: [id number] thor: Marla Webb: (none)Author Type: PhysicianType: Progress NotesFiled: 08/30/2017 1:01 PMNote Text:Proliferative Diabetic Retinopathy, Both Eyes:- 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 I have seen and examined Oly HarrellI have discussed the case and the management of this patient's care with theResident/Fellow, if applicable. I also have reviewed and agree with theassessment and plan as stated above and agree with all of its relevantcomponents.David Mancuso Provider: ALAYNA GUTIERREZ [[id number]]Allergies As of Date: 04/02/2017 Noted Allergy ReactionDEMEROL (MEPERIDINE (PF)) 01/30/2014 10 - AnaphylaxisMORPHINE 01/30/2014 10 - AnaphylaxisDate Reviewed: 01/01/2017Reviewed by: Inge Munoz (Tech) - Fully AssessedReason for Visit: Post-Op Visit [1236] Cmt: s/p lid repair 12/23/16Primary Visit Diagnosis:Ptosis of both eyelids [H02.403]Order(s):IOP MEASUREMENT [8268299] Order #: [id number]: 1Prescriptions as of 04/02/2017 Sig: NEOMYCIN 3.5 [...] of therapy completed erythromycin ophthalmic ointment 2 Tu* 1 12/23/2016 04/02/2017 Class: Print RX Sig: [...] by mouth. Disc: Discontinued by PatientEncounter Number: [id number] Status:Closed by ALAYNA GUTIERREZ MD on 04/02/17 [facility] PROGRESSon 04-01-2017 Protein mass conc HNO ID: [id number] thor: Alayna Montiel: (none)Author Type: PhysicianType: Progress [...] others. I have seen and examined Oly TEJADAOtf have discussed the case and the management of this patient's care withthe Resident/Fellow, if applicable. I also have reviewed and agree withthe assessment and plan as stated above and agree with all of its relevantcomponents.Alayna Gutierrez MD [facility] ANES Jaylen 12-23-2016 ANES POST HNO ID: [id number] thor: Harjeet PeñalozaService: AnesthesiologyAuthor Type: PhysicianType: Anesthesia [...] 23, 2016 : 2:03 PM PAGER/CONTACT #: [facility] ANES PREOPon 12-23-2016 ANES PREOP HNO ID: [id number] thor: El Corteservice: (none)Author Type: PhysicianType: Anesthesia PreOpFiled: 12/23/2016 9:14 AMNote Text:[facility]ION[facility] ANESTHESIOLOGY PREOPERATIVE ASSESSMENTPATIENT NAME: Oly HarrellMRN: [id number]: 1960Surgeon(s):Alayna Gee(s) (LRB):REPAIR BLEPHAROPTOSIS; (TARSO) LEVATOR RESECTION OR ADVANCEMENT, EXTERNALAPPROACH (Bilateral)Estimated body mass index is 44.81 kg/(m2) as calculated from thefollowing: Height as of 12/02/16: 157.5 cm (5' 2 ). Weight as of this encounter: 111.1 kg (245 lb).Most recent hematocrit and potassium results:Hematocrit 35.7 12/02/2016Potassium 4.0 12/02/2016Vitals: 071380MR: 154/91Pulse: 102Resp: 18Temp: 36.3 ?C (97.3 ?F)TempSrc: [...] LEFT EYENo date: COLONOSCOP W/ OR W/O [facility] SPEC Comment: ColonoscopyNo date: EGD W/O [...] ringers infusion 30 mL/hr INTRAVENOUS CONTINUOUS Alayna HwangLast Rate: 30 mL/hr at 12/23/16 0847 [...] obtained within 48 hours ofSurgery/Procedure.SIGNATUR E: El lAvarado MDDATE: December 23, 2016TIME: 9:14 AM Normal [facility] OPERATIVE NOon 12-23-2016 OPERATIVE NO HNO ID: [id number] thor: Alayna GutierrezService: OphthalmologyAuthor Type: PhysicianType: Operative ReportFiled: 12/23/2016 10:37 AMNote Text: OPERATIVE/PROCEDURE REPORTLOG ID: [id number]/Procedure Date: 12/23/2016Incision/Procedure Start Time: 9:50 AMIncision Close/Procedure End Time: 10:35 AMSurgeon(s)/Proceduralist(s ) and Corporate Compliance Manager(s):Surgeon(s) and Role: * Alayna Gutierrez - PrimaryPre-Op/Pre-Procedure [...] HarrellDATE: December 23, 2016 : PAGER/CONTACT #: [facility] PT EDon 12-23-2016 PT ED HNO ID: [id number] thor: Patti (Rn) MELANIE Krishnanervice: NursingAuthor Type: Registered NurseType: Patient EducationFiled: 12/23/2016 11:09 AMNote Text:[facility] SUR[facility] PATIENT EDUCATION NOTEREADINESS TO LEARNCOGNITIVE [...] RN: NoElectronically Signed By Patti Krishnan RN [facility] Vital Signs Date Time Vital Sign Value Performing Clinician Facility 07-30-2023 10:06-0500 Body height 157.5 cm Christophe Irwin MD Work Phone: [facility] 07-30-2023 10:06-0500 Body mass index (BMI) [Ratio] 40.42 kg/m2 Christophe Irwin MD Work Phone: [facility] 07-30-2023 10:06-0500 Body temperature 97.5 [degF] Christophe Irwin MD Work Phone: [facility] 07-30-2023 10:06-0500 Body weight 100.25 kg Christophe Irwin MD Work Phone: [facility] 07-30-2023 10:06-0500 Diastolic blood pressure 78 mm[Hg] Christophe Irwin MD Work Phone: [facility] 07-30-2023 10:06-0500 Heart rate 94 /min Christophe Irwin MD Work Phone: [facility] 07-30-2023 10:06-0500 SaO2% (BldA) [Mass fraction] 99 % Christophe Irwin MD Work Phone: [facility] 07-30-2023 10:06-0500 Systolic blood pressure 140 mm[Hg] Christophe Irwin MD Work Phone: [facility] 05-06-2023 13:45-0500 Body height 160.66 cm Tondra Mapus Other [facility] Other 05-06-2023 13:45-0500 Body mass index (BMI) [Ratio] 39.68 kg/m2 Tondra Mapus Other [facility] Other 05-06-2023 13:45-0500 Body weight 102.42 kg Tondra Mapus Other [facility] Other 05-06-2023 13:45-0500 Diastolic blood pressure 77 mm[Hg] Tondra Mapus Other [facility] Other 05-06-2023 13:45-0500 Respiratory rate 18 /min Tondra Mapus Other [facility] Other 05-06-2023 13:45-0500 SaO2% (BldA) [Mass fraction] 100 % Tondra Mapus Other [facility] Other 05-06-2023 13:45-0500 Systolic blood pressure 187 mm[Hg] Tondra Mapus Other [facility] Other 04-14-2022 15:00-0400 Body height 160.66 cm Tango Cardmahendra [email or web address] Other [facility] Other 04-14-2022 15:00-0400 Body mass index (BMI) [Ratio] 39.92 kg/m2 [employer] Other [facility] Other 04-14-2022 15:00-0400 Body temperature 97.3 [degF] [employer] Other [facility] Other 04-14-2022 15:00-0400 Body weight 103.06 kg Fadumo Chau Other [facility] Other 04-14-2022 15:00-0400 Diastolic blood pressure 110 mm[Hg] Fadumo Bairess Other [facility] Other 04-14-2022 15:00-0400 Respiratory rate 20 /min Fadumo Bairess Other [facility] Other 04-14-2022 15:00-0400 SaO2% (BldA) [Mass fraction] 98 % Fadumo Chau Other [facility] Other 04-14-2022 15:00-0400 Systolic blood pressure 170 mm[Hg] Fadumo Bairess Other [facility] Other 10-15-2021 17:15-0400 Body height 160.66 cm Tondra Mapus Other [facility] Other 10-15-2021 17:15-0400 Body mass index (BMI) [Ratio] 40.59 kg/m2 Tondra Mapus Other [facility] Other 10-15-2021 17:15-0400 Body weight 104.78 kg Tondra Mapus Other [facility] Other 10-15-2021 17:15-0400 Diastolic blood pressure 84 mm[Hg] Tondra Mapus Other [facility] Other 10-15-2021 17:15-0400 Respiratory rate 20 /min Tondra Mapus Other [facility] Other 10-15-2021 17:15-0400 SaO2% (BldA) [Mass fraction] 95 % Tondra Mapus Other [facility] Other 10-15-2021 17:15-0400 Systolic blood pressure 147 mm[Hg] Tondra Mapus Other [facility] Other 07-17-2021 15:15-0500 Body height 160.66 cm Tondra Mapus Other [facility] Other 07-17-2021 15:15-0500 Body mass index (BMI) [Ratio] 41.12 kg/m2 Tondra Mapus Other [facility] Other 07-17-2021 15:15-0500 Body weight 106.14 kg Tondra Mapus Other [facility] Other 07-17-2021 15:15-0500 Diastolic blood pressure 84 mm[Hg] Tondra Mapus Other [facility] Other 07-17-2021 15:15-0500 Respiratory rate 20 /min Tondra Mapus Other [facility] Other 07-17-2021 15:15-0500 SaO2% (BldA) [Mass fraction] 97 % Tondra Mapus Other [facility] Other 07-17-2021 15:15-0500 Systolic blood pressure 135 mm[Hg] Tondra Mapus Other [facility] Other 09-07-2019 12:00-0400 Pulse Oximetry 97 % Martir [facility] , [place] 09-07-2019 11:45-0400 Body Temperature 97.5 [degF] Martir [place], [place] 09-07-2019 11:45-0400 BP Diastolic 82 mm[Hg] Martir [place], [place] 09-07-2019 11:45-0400 BP Systolic 150 mm[Hg] [place], [place] 09-07-2019 11:45-0400 Pulse (Heart Rate) 94 /min Martir [place], [place] 09-07-2019 11:45-0400 Respiratory Rate 16 /min Martir [place] 09-07-2019 08:38-0400 BMI (Body Mass Index) 45.54 kg/m2 Martir [place] 09-07-2019 08:38-0400 Body weight 112.95 kg [place], [place] 09-07-2019 08:38-0400 Height 157.5 cm Martir [place] Encounters Encounter Date Encounter Type Care Provider Facility Start: 07-30-2023 Bamboo flowsheet Christophe Irwin MD Work Phone: [facility] Start: 07-30-2023 Bamboo flowsheet Christophe Irwin MD Work Phone: [facility] Start: 07-30-2023 End: 07-30-2023 ambulatory CHRISTOPHE IRWIN Not Available Start: 07-30-2023 End: 07-30-2023 Preoperative state Christophe Irwin MD Work Phone: [facility] Start: 07-30-2023 End: 07-30-2023 Transitional care manage srvc 7 day discharge Christophe Irwin MD Work Phone: [facility] Comment on above: 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 (CMS/HCC) (Primary Dx); Preoperative clearance; Bunion of right foot; Essential hypertension, benign (CMS/HCC); Type 2 diabetes mellitus with microalbuminuria, with long-term current use of insulin (CMS/HCC) Start: 07-26-2023 End: 07-27-2023 ambulatory ANYI ADAME [facility] Start: 07-23-2023 End: 07-27-2023 ambulatory PATRICIA HAWKINS [facility] Start: 07-23-2023 End: 07-27-2023 ambulatory ANYI Jameson [facility] Start: 07-23-2023 End: 07-27-2023 Emergency department patient visit ANDREW SHARIF [facility] Start: 07-23-2023 End: 07-26-2023 Evaluation and management of inpatient CHRISTOPHE IRWIN [facility] Start: 07-08-2023 End: 07-08-2023 ambulatory Tondra Mapus Other [facility] Other Start: 07-08-2023 Telephone encounter Tondra Mapus [facility] Start: 05-18-2023 End: 05-18-2023 ambulatory Tondra Mapus Other [facility] Other Start: 05-18-2023 Telephone encounter Tondra Mapus [facility] Start: 05-06-2023 (DM) Diabetes Tondra Mapus [facility] Start: 05-06-2023 End: 05-07-2023 ambulatory Tondra K Mapus [facility] Other Start: 04-29-2023 End: 04-29-2023 ambulatory Tondra Mapus Other [facility] Other Start: 04-29-2023 Telephone encounter Tondra Mapus [facility] Start: 02-24-2023 End: 02-24-2023 ambulatory Tondra Mapus Other [facility] Other Start: 02-24-2023 Telephone encounter Tondra Mapus [facility] Start: 11-09-2022 ambulatory MONET MATA Faci lity:[facility] Start: 11-05-2022 End: 11-05-2022 ambulatory Tondra Mapus Other [facility] Other Start: 11-05-2022 Telephone encounter Tondra Mapus [facility] Start: 10-30-2022 End: 10-30-2022 ambulatory Tondra Mapus Other [facility] Other Start: 10-30-2022 Telephone encounter Tondra Mapus [facility] Start: 10-12-2022 End: 10-13-[address] CHRISTOPHE IRWIN Facility:[facility] Start: 09-14-2022 End: 09-15-2022 ambulatory ISABELLA KELLY Facility:[facility] Start: 08-31-2022 End: 09-01-2022 ambulatory ISABELLA KELLY Facility:[facility] Start: 08-27-2022 End: 08-27-2022 ambulatory Tondra Mapus Other [facility] Other Start: 08-27-2022 Telephone encounter Tondra Mapus [facility] Start: 08-18-2022 End: 08-19-[address] CHRISTOPHE IRWIN Facility:[facility] Start: 08-10-2022 End: 08-11-[address] CHRISTOPHE IRWIN Facility:[facility] Start: 07-20-2022 End: 07-21-[address] CHRISTOPHE IRWIN Facility:[facility] Start: 06-26-2022 End: 06-27-[address] CHRISTOPHE IRWIN Facility:[facility] Start: 06-18-2022 End: 06-18-2022 ambulatory Tondra Mapus Other [facility] Other Start: 06-18-2022 Telephone encounter Tondra Mapus [facility] Start: 06-15-2022 End: 06-15-2022 ambulatory Tondra Mapus Other [facility] Other Start: 06-15-2022 Telephone encounter Tondra Mapus [facility] Start: 06-09-2022 End: 06-10-2022 ambulatory ISABELLA KELLY Facility:[facility] Start: 05-11-2022 End: 05-11-2022 ambulatory UNKNOWN PROVIDER Facility:[facility] Start: 05-07-2022 End: 05-07-2022 ambulatory Tondra Mapus Other [facility] Other Start: 05-07-2022 Telephone encounter Tondra Mapus [facility] Start: 04-15-2022 End: 04-15-2022 ambulatory Aziz Bakhous Other [facility] Other Start: 04-15-2022 Telephone encounter Aziz Bakhous [facility] Start: 04-14-2022 End: 04-14-2022 ambulatory Aziz Bakhous Other [facility] Other Start: 04-14-2022 Office outpatient ne w 30 minutes Aziz Bakhous [facility] Start: 04-01-2022 End: 04-02-[address] AMANDA HOSKINS Facility:[facility] Start: 02-18-2022 End: 02-19-[address] AMANDA HOSKINS Facility:[facility] Start: 01-01-2022 End: 01-01-2022 ambulatory Tondra Mapus Other [facility] Other Start: 01-01-2022 Telephone encounter Tondra Mapus [facility] Start: 10-15-2021 (DM) Diabetes Tondra Mapus [facility] Start: 10-15-2021 End: 10-15-2021 ambulatory Tondra Mapus Other [facility] Other Start: 10-15-2021 Telephone encounter Tondra Mapus [facility] Start: 10-07-2021 End: 10-07-2021 ambulatory Tondra Mapus Other [facility] Other Start: 10-07-2021 Telephone encounter Tondra Mapus [facility] Start: 08-25-2021 End: 08-25-2021 ambulatory Tondra Mapus Other [facility] Other Start: 08-25-2021 Telephone encounter Tondra Mapus [facility] Start: 07-17-2021 (DM) Diabetes Tondra Mapus [facility] Start: 07-17-2021 End: 07-17-2021 ambulatory Tondra Mapus Other [facility] Other Start: 09-07-2019 End: 09-07-2019 Patient encounter procedure MARTIR BANG [facility] Start: 09-07-2019 End: 09-07-2019 Subsequent hospital visit by physician Martir Bang Work Phone: [facility] Start: 01-21-2018 End: 01-24-2018 Patient encounter BRITTANY SPARKS [facility] Start: 11-01-2017 End: 11-02-2017 Patient encounter MARLA NEW [facility] Start: 10-04-2017 End: 10-05-2017 Patient encounter MARLA NEW [facility] Start: 08-30-2017 End: 09-02-2017 Patient encounter MARLA NEW [facility] Start: 04-02-2017 End: 04-02-2017 Patient encounter ALAYNA GUERRAANG [facility] Start: 12-23-2016 End: 12-23-2016 Ambulatory [facility] Procedures Date Procedure Procedure Detail Performing Clinician [...] 10/29/2023 10:15 AM EDT Office Visit [facility] [address] [place] [phone] Christophe Irwin MD [address] [place] [id number] [facility] Start: 07-30-2023 End: 07-30-2023 Patient encounter procedure 07/30/2023 10:15 AM EST [facility] [address] [place] [address] Christophe Irwin MD [address] [place] [address] Arrived [facility] Comment on above: Arrived Start: 02-26-2023 Influenza vaccination Influenza Vacc ine (#1) [facility] Start: 01-29-2023 Hemoglobin A1c measurement Diabetes: Hemoglobin A1C [facility] Start: 05-10-2019 Screening for malign ant neoplasm of breast Mammogram [facility] Start: 02-26-2019 Influenza vaccination Flu vaccine (# 1) [place], [place] Start: 1992 Screening for malign ant neoplasm of cervix [facility] Start: 10-27-1983 Screening for malign ant neoplasm of cervix Pap Smear [facility] Start: 1972 Glaucoma screening Diabetes: R etinopathy Screening [facility] Start: 1960 Creatinine monitoring Creatinine mon itoring [place], [place] Start: 1960 Medicare Annual Wellness (AWV) Medicare Annual Wellness (AWV) [facility] Start: 1960 Potassium monitoring Potassium monit oring [place], [place] Start: 1960 Screening for malign ant neoplasm of colon [facility] End: 09-07-2019 BUN & Creatinine BUN & Creatinine Lab STAT One Time for 1 Occurrences starting 09/07/2019 until 09/07/2019 [place] Comment on above: One Time for 1 Occur rences starting 09/07/2019 until 09/07/2019 EKG 12 Lead EKG 12 Lead ECG STAT 09/07/2019 7:38 AM EDT [place] End: 09-07-2019 Electrolyte Panel Electrolyte Panel Lab STAT One Time for 1 Occurrences starting 09/07/2019 until 09/07/2019 [place] Comment on above: One Time for 1 Occur rences starting 09/07/2019 until 09/07/2019 Initiate Oxygen Ther apy Protocol Initiate Oxygen Therapy Protocol Respiratory Care Routine Daily until discontinued starting 09/07/2019 [facility] Comment on above: Daily until disconti nued starting 09/07/2019 Phase I & II - meter ed glucose Phase I & II - metered glucose Point of Care Testing Routine As Needed until discontinued starting 09/07/2019 [facility] Comment on above: As Needed until disc ontinued starting 09/07/2019 End: 09-07-2019 [facility] Comment on above: One Time for 1 Occur rences starting 09/07/2019 until 09/07/2019 End: 09-07-2019 Pulse Oximetry Spot Check Pulse Oximetry Spot Check Respiratory Care Routine One Time for 1 Occurrences starting 09/07/2019 until 09/07/2019 [facility] Comment on above: One Time for 1 Occur rences starting 09/07/2019 until 09/07/2019 End: 09-07-2019 Urine , POCT Urine , POCT Point of Care Testing Routine One Time for 1 Occurrences starting 09/07/2019 until 09/07/2019 [facility] Comment on above: One Time for 1 Occur rences starting 09/07/2019 until 09/07/2019 Immunizations Immunization Date Immunization Notes Care Provider [facility] 05-15-2020 influenza virus vacc ine, unspecified formulation Christophe Irwin MD Work Phone: [facility] Payers Date Payer Category Payer Medicare [employer] [place] [id number] 2023-Present [address] [place] [address] [id number] 2022 Medicaid MEDICAID [facility] [id number] 2022-Present [phone] [address] [place] [address] Medicaid [id number] 2019 Medicare UHC MEDICARE [employer] DUAL [employer]PLETE xxxxxxxxx 2019-Present xxxxxxxxx [id number] 2018 Self-pay [id number] 2017 Medicare [id number] 2014 Medicaid MEDICAID [facility] DEPT OF JOB xxxxxxxxxxxx 2014-Present [phone] [address] [place] [address] xxxxxxxxxxxx [id number] 1960 Unknown [id number] 2.16.840.1.413292.3.579.2.1 75 1962 Unknown [id number] 2.16.840.1.126213.3.579.2.7 32 1962 Unknown [id number] 2.16.840.1.735247.3.579.2.5 93 1962 Unknown [id number] 2.16.840.1.212413.3.579.2.5 93 1962 Unknown [id number] 2.16.840.1.032168.3.579.2.5 93 1962 Unknown [id number] 2.16.840.1.690232.3.579.2.5 93 1962 Unknown [id number] 2.16.840.1.376960.3.579.2.5 93 1962 Unknown [id number] 2.16.840.1.032518.3.579.2.5 93 1962 Unknown [id number] 2.16.840.1.683823.3.579.2.5 93 1962 Unknown [id number] 2.16.840.1.606588.3.579.2.5 93 1962 Unknown [id number] 2.16.840.1.885716.3.579.2.5 93 1962 Unknown [id number] 2.16.840.1.233217.3.579.2.5 93 1962 Unknown [id number] 2.16.840.1.814553.3.579.2.5 93 1962 Unknown [id number] 2.16.840.1.287593.3.579.2.1 286 1962 Unknown [id number] 2.16.840.1.742421.3.579.2.1 286 1962 Unknown [id number] 2.16.840.1.119954.3.579.2.1 286 1962 Unknown [id number] 2.16.840.1.025359.3.579.2.1 286 1962 Unknown [id number] 2.16.840.1.051713.3.579.2.1 286 1962 Unknown [id number] 2.16.840.1.588613.3.579.2.1 286 1962 Unknown [id number] 2.16.840.1.018188.3.579.2.1 286 1962 Unknown [id number] 2.16.840.1.151743.3.579.2.1 259 1959 Medicaid [id number] Medicare Medicare [id number] Unknown [id number] Social History Date Type Detail Facility Start: 09-07-2019 Tobacco smoking stat [facility] Former smoker [place], [place] End: 09-05-1979 History of tobacco use Current smoker [place] End: 09-05-1979 History of tobacco use Cigarette Smoker [place] Start: 09-07-2019 End: 07-30-2023 Cigarettes smoked current (pack per day) - Reported [place] Start: 09-07-2019 End: 07-30-2023 Alcohol intake Lifetime non-drinker (finding) OFELIA Batres Start: 09-05-2019 History SDOH Alcohol Frequency 1 OFELIA Batres Start: 1960 Sex Assigned At Not on file M OFELIA Garcia Start: 07-09-2023 End: 07-30-2023 Sex Assigned At [facility] [employer] Other Start: 12-14-2022 [facility] Start: 12-14-2022 Tobacco use and exposure Smokeless tobacco non-user [facility] Start: 1960 Sex Assigned At Female F [facility] Medical Equipment Procedure Code Equipment Code Equipment [...] clearance from neurology. documented in this encounter [facility] 07-08-2023 Evaluation note Encounter Date Diagnosis Assessment Notes Jun, Diabetes mellitus with renal manifestations, uncontrolled (ICD-10 - E11.29) [facility] Other 11-09-2023 Evaluation note* Encounter Date Diagnosis Assessment Notes Treatment Notes Treatment Clinical Notes Apr, Insulin long-term use (ICD-10 - Z79.4) Apr, Type 2 diabetes mellitus with diabetic chronic kidney disease (ICD-10 - E11.22) 1. Controlled, Type 2 diabetes A1c 6.8%. 2. Blood glucose levels improved. According to [employer] 2 cgm download 04/16/23-04/29/23: Avg glucose 157. [...] addressed- pt. will have paperwork sent from [facility] for diabetic shoes. She has history of [...] or diabetes medication issues. 6. Prescriptions: Bolivar Carrasquillo Tish Mickeynaomie sent 05/06/23 7. Prescriptions will not be [...] S91.301A) keep f/u with Dr. Mata Wednesday05/10/23 [facility] Other 05-05-2023 Evaluation note* Encounter Date Diagnosis Assessment Notes Treatment Notes Treatment Clinical Notes October, Hyperlipidemia (ICD-10 - E78.5) [facility] Other 12-14-2022 NotePROCEDURE: XR FOOT RT MIN [...] Electronically authenticated by: AMANDA HOSKINS Date: 2022-06-10 09:23[facility]10-18-2022 Evaluation note* Encounter Date Diagnosis Assessment [...] current with her PCP for hyperlipidemia control [facility] Other 10-05-2022 NotePROCEDURE: XR ANKLE RT MIN [...] Electronically authenticated by: AMANDA HOSKINS Date: 2022-04-01 10:53[facility]08-25-2022 NotePROCEDURE: XR ANKLE LT MIN 3 [...] Electronically authenticated by: AMANDA HOSKINS Date: 2022-02-19 08:07[facility]08-25-2022 NotePROCEDURE: XR FOOT RT MIN 3 [...] Electronically authenticated by: AMANDA HOSKINS Date: 2022-02-19 08:04[facility]07-07-2022 Evaluation note* Encounter Date Diagnosis Assessment Notes Treatment Notes Treatment Clinical Notes Dec, Diabetes mellitus with renal manifestations, uncontrolled (ICD-10 - E11.29) [facility] Other 04-20-2022 Evaluation note* Encounter Date Diagnosis Assessment Notes Treatment Notes Treatment Clinical Notes Sep, Insulin long-term use (ICD-10 - Z79.4) Sep, Type 2 diabetes mellitus with diabetic chronic kidney disease (ICD-10 - E11.22) 1. Uncontrolled, Type 2 diabetes A1c 8%. 2. Blood glucose levels according to [employer] 2 cgm download 09/29/21-10/12/21: Avg glucose 188. [...] addressed- pt. will have paperwork sent from [employer] for diabetic shoes. She has history of [...] ml/min (ICD-10 - N18.3) Keep f/u with cytology manager pt reported Dr. Donaldson no longer practicing- recommend referral to [facility] Sep, BMI 40.0-44.9, adult (ICD-10 - Z68.41) Deciphering the nutrition facts label material was published [facility] Other 01-20-2022 Evaluation note* Encounter Date Diagnosis [...] cgm today. Will send for cgm's to [facility]. Discussed with pt adding sglt2. Reviewed common [...] addressed- pt. will have paperwork sent from [facility] for diabetic shoes. She has history of [...] ml/min (ICD-10 - N18.3) Keep f/u with cytology manager. 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 (CMS/HCC)- Primary Preoperative clearance Unspecified pre-operative examination Bunion of right foot Bunion Essential hypertension, benign (CMS/HCC) Essential hypertension, benign Type 2 diabetes mellitus with microalbuminuria, with long-term current use of insulin (CMS/HCC) [facility] noteNo assessment information availableC[facility] Work Phone: [employer] general Narrative - Reported* Type Description Date Medical History Diabetes Medical History Hypertension Medical History Bezor Medical History Chronic pelvic pain Medical History CRF stage 3 Medical History LEFT ANKLE FRACTURE WITH SURGICA L REPAIR Medical History RIGHT FOOT ABSCESS Medical History Seizures Surgical History HYSTERECTOMY Surgical History CHOLECYSTECTOMY Surgical History Laser bilat. 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 general Narrative - Reported* Type Description Date Medical History Diabetes Medical History Hypertension Medical History Bezor Medical History Chronic pelvic pain Medical History CRF stage 3 Medical History LEFT ANKLE FRACTURE WITH SURGICA L REPAIR Medical History RIGHT FOOT ABSCESS Medical History Seizures Medical History INSULIN PRISON USE Medical History HYPERLIPIDEMIA Medical History TYPE [...] fracture-[facility] 2020 Hospitalization History Seizures-[facility] 05/2020 [facility] Other Summary Purpose Family History No Family History Records FoundNo Family History Records FoundNo Family History Records FoundNo Family History Records FoundNo Family History Records FoundNo Family History Records FoundNo Family History Records FoundNo Family History Records Found Advance Directives No Advanced Directives Records FoundDocuments on File Type Date 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 DATE CREATED AUTHOR AUTHOR'S ORGANIZ ATION 07/29/2023 [facility] DATE CREATED AUTHOR AUTHOR'S ORGANIZ ATION 07/31/2023 [facility] DATE CREATED AUTHOR AUTHOR'S ORGANIZ ATION 08/13/2023 [facility] Reason for Visit (unrecogniz ed section and content) Status Reason Specialty Diagnoses / Procedures Referre d By Contact Referred To Contact Diagnoses Vitreous hemorrhage (HCC) VITREOUS HEMORRAGE Procedures [place] VITRECTOMY,MECHANICAL [place] VITRECTOMY PARS PLANA REMOVE PRERETINAL MEMBRANE VITRECTOMY 25 GAUGE Martir Bang MD [address], [address] [place] [address] [facility] Reason Comments Follow-up Surgical clearance Care Teams (unrecognized sec tion and content) Jet 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 [employer] provides no warranty or guarantee of the accuracy or completeness of information in this document."
== END 2023-08-31 15:34 | disposition home or self-care (01) ==
LOC: WC 15:33
PROVIDERS: Visit Provider Podiatrist Foot & Ankle Surgery
DX: E11.621 Type 2 diabetes mellitus with foot ulcer (principal); L97.411 Non-pressure chronic ulcer of right heel and midfoot limited to breakdown of skin
CPT/HCPCS: 11042

== ENCOUNTER 2023-09-14 15:13 | Outpatient (OUT) | payer MEDICARE, MEDICAID, SELFPAY | END 2023-09-14 15:14 | disposition home or self-care (01) | LOC: WC 15:13 | PROVIDERS: Visit Provider Podiatrist Foot & Ankle Surgery | DX: E11.621 Type 2 diabetes mellitus with foot ulcer (principal); L97.411 Non-pressure chronic ulcer of right heel and midfoot limited to breakdown of skin | CPT/HCPCS: G0463 ==

== ENCOUNTER 2023-09-24 10:52 | Outpatient (OUT) | payer MEDICARE, MEDICAID, SELFPAY ==
--- OUTSIDE RECORDS SUMMARY | 2023-09-24 11:11 | XMS_ITS | CCD ---
Author Organization [facility] Care Team Providers [facility] Associate Name Role Phone GUTIERREZ, ALAYNA Unavailable Unavailable GUTIERREZ, ALAYNA Unavailable Unavailable GUTIERREZ, ALAYNA Unavailable Unavailable GUTIERREZ, ALAYNA Unavailable Unavailable VIRGEN, MARLA Unavailable Unavailable VIRGEN, MARLA Unavailable Unavailable VIRGEN, MARLA Unavailable Unavailable VIRGEN, MARLA Unavailable Unavailable VIRGEN, MARLA Unavailable Unavailable BABIUCH, BRITTANY Unavailable Unavailable BETI, MARTIR T Admitting Unavailable BETI, MARTIR T Attending Unavailable CHRISTOPHE IRWIN Primary Care Unavailabl e Christophe Irwin Primary Care Provider MapShailesh villalobos Unavailable Fadumo Chau Unavailable PROVIDER, UNKNOWN Attending Unavailable PROVIDER, UNKNOWN Admitting Unavailable LETICIA, ISABELLA Attending Unavailable NADERER, DR CHRISTOPHE Redmond Primary Care Unavailable LETICIA, ISABELLA Admitting Unavailable LETICIA, ISABELLA Admitting Unavailable LETICIA, ISABELLA Attending Unavailable NADERER, DR CHRISTOPHE Redmond Primary Care Unavailable NADERER, DR CHRISTOPHE Redmond Primary Care Unavailable HIGHLANDER, MONET Jameson Attending Unavailable HIGHLANDER, PETER Gisell Admitting Unavailable HIGHLANDER, MONET Jameson Attending Unavailable [...] Primary Care Unavailable LETICIA, ISABELLA Consulting Unavailable HELLENEBWONG, DR AMANDA Oh Consulting Unavailable NADERER, DR CHRISTOPHE Redmond Primary Care Unavailable HIGHLANDER, MONET Jameson Attending Unavailable HIGHLANDER, PETER Gisell Admitting Unavailable HIGHLANDER, PETER Gisell Consulting Unavailable ZIEBER, DR AMANDA Oh Consulting Unavailable NADERER, DR CHRISTOPHE Redmond Primary Care Unavailable HIGHLANDER, MONET Jameson Attending Unavailable HIGHLANDER, PETER D Admitting Unavailable HIGHLANDER, MONET Jameson Consulting Unavailable NADERER, DR CHRISTOPHE Redmond Primary Care Unavailable HIGHLANDER, MONET Jameson Attending Unavailable HIGHLANDER, PETER Gisell Admitting Unavailable Christophe Irwin MD Primary Care Provider [phone] CHRISTOPHE IRWIN Attending Unavailable MapusNancy Attending Unavailable MapNancy villalobos K Admitting Unavailable Roney Sahu Primary Care Unavailable ILANA, EHAD Attending Unavailable CHRISTOPHE IRWIN Referring Unavailable NADEREAdriano, CHRISTOPHE Primary Care Unavailable ALIDA, CHRISTOPHE Primary Care Unavailable ANDREW SHARIF Attending Unavailable ILANA, EHAD Consulting Unavailable POTHELEN MARTINI P Admitting Unavailable ANYI ADAME Attending Unavailable ANYI ADAME Referring Unavailable NADERERCHRISTOPHE Primary Care Unavailable ANDREW SHARIF Attending Unavailable [...] Unavailable Christophe Irwin MD Primary Care Provider [phone] Allergies Allergy Classification Reported Allergen(s) Allergy Type Date of Onset Reaction(s) Facility (6 sources) meperidine; Translations: [MEPERIDINE (PF)] Drug Allergy 4 Anaphylaxis [facility] Repository (20 sources) morphine; Translations: [MORPHINE] Drug Allergy 4 Other (See Comments), Anaphylaxis, Unknown, Other [facility] Repository (20 sources) Meperidine; Translations: [MEPERIDINE] Drug Allergy 4 Other (See Comments), Anaphylaxis, Unknown [place], [place] (5 sources) Sertraline; Translations: [SERTRALINE HCL] Drug Allergy 0 Hives [place], [place] (1 source) Other Propensity to adverse reactions 0 Other (See Comments) [place], [place] (20 sources) Acetaminophen Drug Allergy 3 Unknown [facility] (1 source) Meperidine Drug Allergy 5 [facility] Repository (1 source) Sertraline Drug Allergy 0 [facility] (1 source) Tylenol-Codeine #3 Drug allergy (disorder) 0 [facility] (5 sources) dulaglutide Drug Allergy 3 g/i [facility] (5 sources) semaglutide Drug Allergy 3 g/i s/e [facility] (11 sources) Acetaminophen / Codeine; Translations: [ACETAMINOPHEN-CO DEINE] Drug Allergy 8 Shortness of breath, Abdominal Pain [facility] (3 sources) Meperidine Drug Allergy 3 Unknown [facility] (3 sources) Sertraline Drug Allergy 0 [facility] (1 source) Acetaminophen Drug Allergy 3 [facility] (1 source) dulaglutide Drug Allergy 3 [facility] (1 source) Meperidine Drug Allergy 3 [facility] (1 source) semaglutide Drug allergy (disorder) 3 [facility] Repository Medications Current Medications Medication Drug Class(es) [...] day Active amLODIPine 5 mg oral tablet (14 sources) Dihydropyridine Calcium Channel Ajay Start: 023 take 1 tablet by mouth in the morning, then take 1 tablet by mouth at bedtime amLODIPine (NORVASC) 5 mg tablet Take 1 tablet (5 mg total) by mouth in the morning and 1 tablet (5 mg total) before bedtime. 60 tablet 2 11/02/2022 Active Start: 02-07-2018 take 1 tablet by ewelina th once daily amLODIPine (NORVASC) 10 MG tablet Take 10 mg by mouth daily 0 02/07/2018 Active ascorbic acid 250 mg chewabl e tablet (8 sources) Vitamin C ascorbic acid, v itamin C, 250 mg tablet,chewable Chew 1 tablet and swallow 2 (two) times a day. 0 Active Vitamin C 500 MG as directed Orally Active aspirin 81 mg delayed release oral tablet (4 sources) Platelet Aggregation Inhibitor, Nonsteroidal Anti-inflammatory Drug Start: 05-16-2022 End: 09-10-2023 take 1 tablet by mouth in the morning aspirin 81 mg Take 1 tablet (81 mg total) by mouth in the morning. 30 tablet 11 09/10/2023 Active atorvastatin 40 mg oral tablet (10 sources) HMG-CoA Reductase Inhibitor Start: 07-26-2023 take 1 tablet by mouth once daily atorvastatin (LIPITOR) 40 mg tablet Take 1 tablet (40 mg total) by mouth nightly. 30 tablet 1 07/26/2023 Active take 1 tablet by ewelina th [...] 0.028 meq/ml injectable solution (1 source) Start: 0 lactated ringers infusion carvedilol 25 mg oral tablet (20 sources) alpha-Adrenergic Ajay, beta-Adrenergic Ajay Start: 3 take 1 tablet by mouth in the morning, then take 1 tablet by mouth at mealtime carvediloL (COREG) 25 mg tablet Take 1 tablet (25 mg total) by mouth in the morning and 1 tablet (25 mg total) in the evening. Take with meals. 60 tablet 2 11/02/2022 Active cholecalciferol 0.125 mg oral tablet (20 sources) Vitamin D Start: 3 take 1 tablet by mouth in the morning cholecalciferol, vitamin D3, (VITAMIN D3) 5,000 units tablet Take 1 tablet (5,000 Units total) by mouth in the morning. 90 tablet 3 08/24/2022 Active Cholecalciferol 25 MCG (1000 UT) 1 capsule Orally Active Cholecalciferol 1.25 MG (04868 UT) 1 capsule Orally Active dapagliflozin 10 mg oral tablet (6 sources) Sodium-Glucose Cotransporter 2 Inhibitor take 1 tablet by mouth in the morning dapagliflozin (FARXIGA) 10 mg tablet Take 1 tablet (10 mg total) by mouth in the morning. 0 Active dextromethorphan hydrobromide 20 mg / quiNIDine sulfate 10 mg oral capsule (3 sources) Antiarrhythmic, Uncompetitive X-gdaxxs-Y-aspartate Receptor Antagonist, Cytochrome P450 2D6 Inhibitor, Sigma-1 Agonist Start: 024 dextromethorphan-ramona NIDine (NUEDEXTA) 20-10 mg capsule Indications: Sequelae, post-stroke , PBA (pseudobulbar affect) Take 1 capsule daily for 2 weeks, then increase to 1 capsule twice daily afterwards. 60 capsule 2 09/10/2023 Active diclofenac sodium 0.01 mg/mg topical gel [...] by mouth every week Ergocalciferol 1.25 MG (08313 UT) 1 capsule Orally weekly Jan, Active 2 ml fentaNYL 0.05 mg/ml injection (3 sources) Opioid Agonist Start: 09-07-2019 fentaNYL (SUBLIMAZE) injection 50 mcg Start: 09-07-2019 fentaNYL (SUBL IMAZE) injection 25 mcg Start: 09-07-2019 End: 09-07-2019 fentaNYL (SUBLIMAZE) 100 MCG /2ML injection fluticasone propionate 0.05 mg/actuat metered dose nasal spray (20 sources) Corticosteroid fluticasone prop ionate (FLONASE) 50 mcg/actuation nasal spray Administer 1 spray into each nostril as needed. 0 Active take 1 spray(s) nasal route once [...] Start: 08-24-2022 take 1 tablet by mouth once daily furosemide (LASIX) 20 mg tablet Take 1 tablet (20 mg total) by mouth daily. 0 08/24/2022 Active furosemide (Lasi x) 20 MG tablet Take 25 mg by mouth in the morning. 0 Active take 25 mg by mouth once daily F urosemide (LASIX PO) Take 25 mg by mouth daily 0 Active hydrALAZINE hydrochloride 25 mg oral tablet (6 sources) Arteriolar Vasodilator Start: 11-03-2022 take 1 tablet by mouth every eight hours hydrALAZINE (APRESOLINE) 25 mg tablet Take 1 tablet (25 mg total) by mouth every 8 (eight) hours. 90 tablet 2 11/03/2022 Active 3 ml insulin glargine 100 unt/ml pen injector (20 sources) Insulin Analog Start: 11-02-2022 inject 40 [IU] by subcutaneous injection in the morning insulin glargine (LANTUS, BASAGLAR) 100 unit/mL (3 mL) insulin pen Inject 40 Units under the skin in the morning and 40 Units before bedtime. 0 11/02/2022 Active inject 80 [IU] by [...] unt/ml injectable solution (20 sources) Insulin Analog inject 0.5 mL by subcutaneous injection once daily in the morning insulin lispro (HumaLOG) 100 unit/mL injection Inject 0.5 mL (50 Units total) under the skin in the morning and 0.5 mL (50 Units total) at noon and 0.5 mL (50 Units total) in the evening. Inject before meals. Give only max dose of 50 units daily, adjust accordingly with sliding scale.. 0 Active Insulin Lispro 1 00 UNIT/ML solution Inject [...] days Active lacosamide 100 mg oral tablet (6 sources) Anti-epileptic Agent Start: 3 take 1 tablet by mouth in the morning, then take 1 tablet by mouth at bedtime lacosamide (VIMPAT) 100 mg tablet Indications: Seizure (CMS-HCC) Take 1 tablet (100 mg total) by mouth in the morning and 1 tablet (100 mg total) before bedtime. 60 tablet 3 12/29/2022 Active levETIRAcetam 750 mg oral tablet (20 sources) Start: 3 take 1 tablet by mouth in the morning, then take 1 tablet by mouth at bedtime levETIRAcetam (KEPPRA) 750 mg tablet Take 1 tablet (750 mg total) by mouth in the morning and 1 tablet (750 mg total) before bedtime. 180 tablet 2 11/02/2022 Active take 1 tablet by ewelina [...] 11/02/2022 Active take 1 tablet by ewelina every twenty-four hours Losartan Potassium 25 MG [...] beta-Adrenergic Ajay take 1 tablet by mouth in the morning metoprolol tartrate (LOPRESSOR) 50 mg tablet Take 1 tablet (50 mg total) by mouth in the morning. 0 Active 2 ml midazolam 1 mg/ml injection (1 source) Benzodiazepine Start: 09-07-19 20 midazolam (VERSED) injection 1 mg omeprazole 40 mg delayed release oral capsule (17 sources) Proton Pump Inhibitor take 1 capsule by mouth every twenty-four hours take 1 capsule by mo [facility] every twenty-four hours Omeprazole 20 MG 1 [...] Reuptake Inhibitor take 1 tablet by mouth once daily in the morning PARoxetine (PAXIL) 40 mg tablet Take 1 tablet (40 mg total) by mouth every morning. 0 Active take 1 tablet by [...] qid Active thiamine 100 mg oral tablet (6 sources) Start: 11-03-2022 take 1 tablet by mouth in the morning thiamine HCl (VITAMIN B-1) 100 mg tablet Take 1 tablet (100 mg total) by mouth in the morning. 30 tablet 2 11/03/2022 Active vitamin b12 1 mg oral tablet (6 sources) Vitamin B12 Start: 11-02-2022 take 1 tablet by mouth in the morning cyanocobalamin 1000 MCG tablet Take 1 tablet (1,000 mcg total) by mouth in the morning. 30 tablet 6 11/02/2022 Active Vitamin C 500 MG (18 sources) Vitamin C 500 MG as directed Orally Active zolpidem tartrate 10 mg oral tablet (4 sources) gamma-Aminobutyric Acid-ergic Agonist Start: 02-24-2023 End: 09-10-2023 zolpidem (Ambien) 10 MG tablet Indications: Primary insomnia Take 1 tablet (10 mg) by mouth as needed at bedtime for sleep 30 tablet 1 06/23/2023 Active Completed/Discontinued Medications Medication Drug Class(es) Dates Sig (Normalized) Sig (Original) clopidogrel 75 mg oral tablet (3 sources) [id number] Platelet Inhibitor Start: 07-27-2023 End: 09-10-2023 take 1 tablet by mouth in the morning clopidogreL (PLAVIX) 75 mg tablet Take 1 tablet (75 mg total) by mouth in the morning. 30 tablet 1 07/27/2023 09/10/2023 Discontinued (Therapy completed) cyclopentolate hydrochloride 10 mg/ml ophthalmic solution (1 [...] Classification Problem Date Documented Da te Episodic/Chronic Acute cerebrovascular disease (19 sources) Cerebrovascular accident due to occlusion of left middle cerebral artery by embolus; Translations: [Cerebral infarction due to embolism of left middle cerebral artery] Onset: 1 07-30-2023 Chronic Acute cerebrovascular disease (1 source) Acute cerebrovascular disease Onset: 4 Administrative/social admission (3 sources) Dietary counseling and surveillance Onset: 2 Resolved: 2 Episodic Anal and rectal conditions (18 sources) Rectal pain; Translations: [Rectal pain] Episodic Anxiety disorders (3 sources) Generalized anxiety disorder; Translations: [Generalized anxiety disorder] Onset: 4 07-15-2023 Chronic Chronic kidney disease (20 sources) Chronic kidney disease stage 3; Translations: [Chronic kidney disease, stage 3 (moderate)] Onset: 2 Resolved: 2 Chronic Chronic kidney disease (2 sources) Chronic kidney disease; Translations: [Chronic kidney disease, stage 3 unspecified] Onset: 4 Chronic ulcer of skin (3 sources) Non-pressure chronic ulcer of right heel and midfoot limited to breakdown of skin; Translations: [Non-pressure chronic ulcer of other part of right foot with fat layer exposed] Onset: 3 Chronic Delirium, dementia, and amnestic and other cognitive disorders (5 sources) Pseudobulbar affect; Translations: [Pseudobulbar affect] Onset: 4 09-10-2023 Chronic Diabetes mellitus with complications (20 sources) Disorder of kidney due to diabetes mellitus; Translations: [Type 2 diabetes mellitus with other diabetic kidney complication] Onset: 7 Resolved: 2 Chronic Diabetes mellitus without complication (20 sources) Type 2 diabetes mellitus; Translations: [Diabetes mellitus] Onset: 6 09-07-2019 Chronic Diabetes mellitus without complication (1 source) Diabetes mellitus without complication; Translations: [Type 2 diabetes mellitus with diabetic chronic kidney disease] Onset: 3 Disorders of lipid metabolism (20 sources) Hyperlipidemia; Translations: [Hyperlipidemia, unspecified] Onset: 2 Resolved: 2 Chronic Esophageal disorders (3 sources) Gastroesophageal reflux disease; Translations: [Gastro-esophageal reflux disease without esophagitis] 10-17-2020 Chronic Essential hypertension (20 sources) Essential hypertension; Translations: [Essential (primary) hypertension] Onset: 2 Resolved: 2 Chronic Fracture of lower limb (1 source) Displaced fracture of lateral malleolus of left fibula, subsequent encounter for closed fracture with delayed healing; Translations: [DSPL FX LM LT FIB SUB CLOS FX DLAY] Onset: 3 Episodic Gastritis and duodenitis (3 sources) Superficial nonerosive nonspecific gastritis; Translations: [Chronic superficial gastritis without bleeding] Onset: 4 07-15-2023 Chronic Genitourinary symptoms and ill-defined conditions (3 sources) Incontinence; Translations: [Mixed incontinence] Onset: 7 09-14-2022 Chronic Genitourinary symptoms and ill-defined conditions (3 sources) Urgent desire to urinate; Translations: [Urgency of urination] 10-17-2020 Episodic Glaucoma (3 sources) Glaucoma; Translations: [Unspecified glaucoma] 10-17-2020 Chronic Hypertension with complications and secondary hypertension (5 sources) Hypertensive chronic kidney disease with stage 1 through stage 4 chronic kidney disease, or unspecified chronic kidney disease; Translations: [Hypertensive encephalopathy] Onset: 3 10-30-2022 Chronic Infective arthritis and osteomyelitis (except that caused by tuberculosis or sexually transmitted disease) (1 source) Other acute osteomyelitis, right ankle and foot; Translations: [OTH ACUTE OSTEOMYEL RT ANKLE FOOT] Onset: Chronic Late effects of cerebrovascular disease (5 sources) Unspecified sequelae of cerebral infarction; Translations: [Sequela of cerebrovascular accident] Onset: 3 07-14-2022 Chronic Mood disorders (3 sources) Recurrent major depressive episodes, mild ; Translations: [Major depressive disorder, recurrent, mild] Onset: 4 07-15-2023 Chronic Nutritional deficiencies (20 sources) Vitamin D deficiency; Translations: [Vitamin D deficiency, unspecified] Onset: 1 Chronic Occlusion or stenosis of precerebral arteries (3 sources) Bilateral stenosis of carotid arteries; Translations: [Occlusion and stenosis of bilateral carotid arteries] Onset: 3 07-14-2022 Chronic Open wounds of extremities (1 source) Unspecified open wound, right foot, initial encounter Episodic Osteoarthritis (3 sources) Osteoarthritis of joint of bilateral hands; Translations: [Primary osteoarthritis, right hand] Onset: 4 07-15-2023 Chronic Other aftercare (5 sources) 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; Translations: [long-term (current) use of insulin] Onset: 8 Resolved: 2 Episodic Other aftercare (20 sources) Long-term current use of insulin; Translations: [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] Episodic Other bone disease and musculoskeletal deformities (3 sources) Osteopenia; Translations: [Other specified disorders of bone density and structure, right thigh] Onset: 4 07-15-2023 Episodic Other connective tissue disease (1 source) Plantar fascial fibromatosis; Translations: [PLANTAR FASCIAL FIBROMATOSIS] Onset: 3 Episodic Other connective tissue disease (3 sources) Deformity of lower limb; Translations: [Contracture of muscle, unspecified lower leg] Onset: 4 07-15-2023 Episodic Other connective tissue disease (4 sources) Other symptoms and signs involving the musculoskeletal system; Translations: [Other musculoskeletal symptoms referable to limbs] Onset: 4 07-24-2023 Episodic Other endocrine disorders (20 sources) Nocturnal hypoglycemia due to diabetes mellitus; Translations: [Other hypoglycemia] Chronic Other gastrointestinal disorders (3 sources) Irritable bowel syndrome; Translations: [Mixed irritable bowel syndrome] Onset: 4 07-15-2023 Chronic Other gastrointestinal disorders (18 sources) Dysphagia; Translations: [Dysphagia] Episodic Other gastrointestinal disorders (2 sources) Altered bowel function; Translations: [Change in bowel habit] Episodic Other gastrointestinal disorders (2 sources) Flatulence, eructation and gas pain; Translations: [Abdominal distension (gaseous)] Episodic Other hereditary and degenerative nervous system conditions (1 source) Other idiopathic peripheral autonomic neuropathy; Translations: [OTH IDIO PERIPH AUTONOM NEUROPATHY] Onset: 3 Chronic Other injuries and conditions due to external causes (1 source) Other injury of unspecified body region, sequela; Translations: [OTHER INJURY UNS BODY REGION SEQ] Onset: 3 Episodic Other nervous system disorders (1 source) Anesthesia of skin; Translations: [Anesthesia of skin] Onset: 4 Episodic Other nutritional; endocrine; and metabolic disorders (20 sources) Morbid obesity; Translations: [Morbid (severe) obesity due to excess calories] Onset: 7 08-13-2017 Chronic Other nutritional; endocrine; and metabolic disorders (20 sources) Body mass index 40+ - severely obese; Translations: [Body mass index (BMI) 40.0-44.9, adult] Chronic Other nutritional; endocrine; and metabolic disorders (20 sources) Obese class II; Translations: [Body mass index (BMI) 39.0-39.9, adult] Chronic Other nutritional; endocrine; and metabolic disorders (2 sources) Body mass index (BMI) 40.0-44.9, adult Onset: 2 Resolved: 2 Chronic Other nutritional; endocrine; and metabolic disorders (1 source) Body mass index (BMI) 39.0-39.9, adult Chronic Other nutritional; endocrine; and metabolic disorders (7 sources) Hypomagnesemia; Translations: [Hypomagnesemia] Onset: 1 07-15-2023 Chronic Other nutritional; endocrine; and metabolic disorders (1 source) Hypomagnesemia; Translations: [Hypomagnesemia] Onset: 3 Chronic Other screening for suspected conditions (not mental disorders or infectious disease) (5 sources) Other abnormal findings on diagnostic imaging of central nervous system; Translations: [Magnetic resonance imaging of brain abnormal] Onset: 3 11-02-2022 Episodic Other skin disorders (1 source) Nail dystrophy; Translations: [NAIL DYSTROPHY] Onset: 3 Episodic Other skin disorders (1 source) Corns and callosities; Translations: [CORNS AND CALLOSITIES] Onset: 3 Episodic Residual codes; unclassified (1 source) Localized edema; Translations: [LOCALIZED EDEMA] Onset: 3 Episodic Residual codes; unclassified (3 sources) Edema of lower extremity; Translations: [Localized edema] Onset: 4 07-15-2023 Episodic Skin and subcutaneous tissue infections (1 source) Cellulitis of right lower limb; Translations: [CELLULITIS OF RIGHT LOWER LIMB] Onset: 3 Episodic Thyroid disorders (3 sources) Disorder of thyroid gland; Translations: [Disorder of thyroid, unspecified] 11-02-2022 Episodic Transient cerebral ischemia (1 source) Transient cerebral ischemic attack, unspecified; Translations: [Transient cerebral ischemic attack, unspecified] Onset: 4 Chronic Unclassified (1 source) Type 2 diabetes mellitus with proliferative diabetic retinopathy with macular edema, bilateral; Translations: [Type 2 diabetes mellitus with proliferative diabetic retinopathy with macular edema, bilateral] Onset: 8 Unclassified (1 source) CHRN KIDNEY DISEASE STG 3 UNSP; Translations: [CHRN KIDNEY DISEASE STG 3 UNSP] Onset: 3 Unclassified (1 source) Numbness to Right Side Onset: 4 Past or Other Problems Problem Classification Problem Date Documented Da te Episodic/Chronic Abdominal pain (20 sources) Abdominal pain; Translations: [Abdominal pain] Onset: 10-16-2020 10-17-2020 Episodic Acquired foot deformities (8 sources) Flat foot [pes planus] (acquired), right foot; Translations: [Bunion] Onset: 07-14-2022 07-30-2023 Episodic Epilepsy; convulsions (14 sources) Seizure; Translations: [Unspecified convulsions] Onset: 05-24-2021 07-15-2023 Episodic Fluid and electrolyte disorders (6 sources) Hypokalemia; Translations: [Hypokalemia] Onset: 05-11-2022 07-15-2023 Episodic Gastrointestinal hemorrhage (3 sources) Coffee ground vomiting; Translations: [Hematemesis] Onset: 10-16-2020 10-17-2020 Episodic Malaise and fatigue (4 sources) Weakness; Translations: [Left hemiparesis] Onset: 10-30-2022 10-30-2022 Episodic Mood disorders (3 sources) Mood disorders Onset: 09-10-2023 09-10-2023 Nausea and vomiting (20 sources) Nausea and vomiting; Translations: [Nausea & vomiting] Onset: 10-16-2020 10-17-2020 Episodic Noninfectious gastroenteritis (8 sources) Colitis; Translations: [Noninfective gastroenteritis and colitis, unspecified] Onset: 10-29-2022 07-15-2023 Episodic Open wounds of extremities (1 source) [...] without residual deficits] Onset: 11-02-2022 Episodic Other circulatory disease (3 sources) History of cerebrovascular accident; Translations: [Personal history of transient ischemic attack (TIA), and cerebral infarction without residual deficits] Onset: 10-30-2022 11-02-2022 Episodic Other connective tissue disease (4 sources) Pain in right foot; Translations: [PAIN IN RIGHT FOOT] Onset: 02-18-2022 Episodic Other eye disorders (3 sources) Myogenic ptosis of left eyelid; Translations: [Myogenic ptosis of right eyelid] Onset: 12-23-2016 Episodic Other fractures (3 sources) Closed fracture of first lumbar vertebra; Translations: [Unspecified fracture of first lumbar vertebra, initial encounter for closed fracture] Onset: 11-03-2020 11-03-2020 Episodic Other gastrointestinal disorders (20 sources) Diarrhea; Translations: [Diarrhea] Onset: 10-30-2022 10-30-2022 Episodic Other nervous system disorders (1 source) Unsteadiness on feet; Translations: [Unsteadiness on feet] Onset: 07-14-2022 Episodic Other nervous system disorders (4 sources) Abnormal gait; Translations: [Unsteadiness on feet] Onset: 07-14-2022 07-14-2022 Episodic Other non-traumatic joint disorders (4 sources) Pain in right ankle and joints of right foot; Translations: [PAIN IN RIGHT ANKLE] Onset: 04-01-2022 Episodic Pathological fracture (6 sources) Pathological fracture of lumbar vertebra due to secondary osteoporosis; Translations: [Other osteoporosis with current pathological fracture, vertebra(e), initial encounter for fracture] Onset: 12-02-2020 12-02-2020 Episodic Residual codes; unclassified (3 sources) Altered mental status; Translations: [Altered mental status, unspecified] Onset: 05-22-2021 10-30-2022 Episodic Residual codes; unclassified (3 sources) Unresponsive ; Translations: [Transient alteration of awareness] Onset: 09-12-2021 09-12-2021 Episodic Residual codes; unclassified (3 sources) Delirium; Translations: [Disorientation, unspecified] Onset: 10-09-2022 10-09-2022 Episodic Residual codes; unclassified (3 sources) History of clinical finding in subject; Translations: [Personal history of other specified conditions] Onset: 10-30-2022 10-30-2022 Episodic Screening and history of mental health and substance abuse codes (3 sources) Patient condition resolved; Translations: [Personal history of other mental and behavioral disorders] Onset: 09-12-2021 09-12-2021 Episodic Septicemia (except in labor) (3 sources) Sepsis; Translations: [Sepsis, unspecified organism] Onset: 10-30-2022 10-30-2022 Episodic Spondylosis; intervertebral disc disorders; other back problems (3 sources) Backache; Translations: [Dorsalgia, unspecified] Onset: 12-02-2020 12-02-2020 Episodic Unclassified (3 sources) Onset: 12-23-2021 12-23-2021 Results Test Name Value Interpretation Reference Range Facility CBC AND AUTO DIFFon 07-26-19 ABSOLUTE BASOPHIL 0.1 X10E9/L Normal 0.0-0.2 [facility] Comment on above: Performed By: #### C BCA, CMP, 61340-1, THYR #### [facility] ([id number]) [address] [place] [address] 82555 #### 80415-2, 2088-06 #### [facility] ([id number]) [address] [place] [address], [address] [place] [address] ABSOLUTE NEUTROPHIL 5.4 X10E9/L Normal 1.5-6.6 [facility] Comment on above: Performed By: #### C BCA, CMP, 67400-5, THYR #### [facility] ([id number]) [address] [place] [address] 02330 #### 20250-1, 2088-06 #### [facility] ([id number]) [address] [place] [address], [address] [place] [address] Basophils/100 WBC (Bld) 0.8 % Normal [facility] Comment on above: Performed By: #### C BCA, CMP, 78675-8, THYR #### [facility] ([id number]) [address] [place] [address] 00321 #### 16364-3, 2088-06 #### [facility] ([id number]) [address], [address] [place] [address] Eosinophils (Bld) [#/Vol] 0.3 10*3/uL Normal 0.0-0.4 [facility] Comment on above: Performed By: #### C BCA, CMP, 79074-1, THYR #### [facility] ([id number]) [address] [place] [address] 37625 #### 80619-5, 2088-06 #### [facility] ([id number]) [address], [address] [place] [address] Eosinophils/100 WBC (Bld) 3.7 % Normal [facility] Comment on above: Performed By: #### C BCA, CMP, 69042-0, THYR #### [facility] ([id number]) [address] [place] [address] 59947 #### 18481-7, 2088-06 #### [facility] ([id number]) [address], [address] [place] [address] Erythrocyte distribution width (RBC) [Ratio] 14.6 % Normal 11.5-15.0 [facility] Comment on above: Performed By: #### C BCA, CMP, 74313-9, THYR #### [facility] ([id number]) [address] [place] [address] 95241 #### 14882-1, 2088-06 #### [facility] ([id number]) [address], [address] [place] [address] Hematocrit (Bld) [Volume fraction] 31.9 % Low 35-47 [facility] Comment on above: Performed By: #### C BCA, CMP, 49347-6, THYR #### [facility] ([id number]) [address] [place] [address] 45021 #### 66788-9, 2088-06 #### [facility] ([id number]) [address], [address] [place] [address] Hemoglobin (Bld) [Mass/Vol] 10.9 g/dL Low 11.7-15.5 [facility] Comment on above: Performed By: #### C BCA, CMP, 73904-1, THYR #### [facility] ([id number]) [address] [place] [address] 47832 #### 06845-0, 2088-06 #### [facility] ([id number]) [address], [address] [place] [address] Lymphocytes (Bld) [#/Vol] 2.6 10*3/uL Normal 1.0-3.5 [facility] Comment on above: Performed By: #### C BCA, CMP, 37433-2, THYR #### [facility] ([id number]) [address] [place] [address] 83821 #### 38715-1, 2088-06 #### [facility] ([id number]) [address], [address] [place] [address] Lymphocytes/100 WBC (Bld) 28.6 % Normal [facility] Comment on above: Performed By: #### C BCA, CMP, 40935-6, THYR #### [facility] ([id number]) [address] [place] [address] 90099 #### 55230-1, 2088-06 #### [facility] ([id number]) [address], [address] [place] [address] MCH (RBC) [Entitic mass] 27.4 pg Normal 27-34 [facility] Comment on above: Performed By: #### C BCA, CMP, 57262-1, THYR #### [facility] ([id number]) [address] [place] [address] 68009 #### 86226-6, 2088-06 #### [facility] ([id number]) [address] [facility], [address] [place] [address] MCHC (RBC) [Mass/Vol] 34.2 g/dL Normal 32-36 [facility] Comment on above: Performed By: #### C BCA, CMP, 94195-6, THYR #### [facility] ([id number]) [address] [place] [address] 95104 #### 54933-2, 2088-06 #### [facility] ([id number]) [address] [place] [address], [address] [place] [address] MCV (RBC) [Entitic vol] 80 fL Normal 80-100 [facility] Comment on above: Performed By: #### C BCA, CMP, 18168-1, THYR #### [facility] ([id number]) [address] [place] [address] 01182 #### 08330-9, 2088-06 #### [facility] ([id number]) [address] [place] [address], [address] [place] [address] Monocytes (Bld) [#/Vol] 0.8 10*3/uL Normal 0-0.9 [facility] Comment on above: Performed By: #### C BCA, CMP, 40470-3, THYR #### [facility] ([id number]) [address] [place] [address] 61381 #### 04125-7, 2088-06 #### [facility] ([id number]) [address] [place] [address], [address] [place] [address] Monocytes/100 WBC (Bld) 8.1 % Normal [facility] Comment on above: Performed By: #### C BCA, CMP, 64524-2, THYR #### [facility] ([id number]) [address] [place] [address] 64489 #### 73986-1, 2088-06 #### [facility] ([id number]) [address], [address] [place] [address] Neutrophils/100 WBC (Bld) 58.8 % Normal [facility] Comment on above: Performed By: #### C BCA, CMP, 55526-4, THYR #### [facility] ([id number]) [address] [place] [address] 90080 #### 56438-0, 2088-06 #### [facility] ([id number]) [address] [facility], [address] [place] [address] Platelet mean volume (Bld) [Entitic vol] 8.3 fL Normal 7-12 [facility] Comment on above: Performed By: #### C BCA, CMP, 31153-1, THYR #### [facility] ([id number]) [address] [place] [address] 84691 #### 89437-6, 2088-06 #### [facility] ([id number]) [address], [address] [place] [address] Platelets (Bld) [#/Vol] 271 10*3/uL Normal 150-450 [facility] Comment on above: Performed By: #### Teresa BCA, CMP, 92395-2, THYR #### [facility] ([id number]) [address] [place] [address] 39819 #### 08224-7, 2088-06 #### [facility] ([id number]) [address], [address] [place] [address] RBC COUNT 3.98 X10E12/L Normal 3.80-5.20 [facility] Comment on above: Performed By: #### C BCA, CMP, 30510-2, THYR #### [facility] ([id number]) [address] [place] [address] 21966 #### 29188-9, 2088-06 #### [facility] ([id number]) [address], [address] [place] [address] WBC (Bld) [#/Vol] 9.2 10*3/uL Normal 4.0-11.0 [facility] Comment on above: Performed By: #### C BCA, CMP, 66929-8, THYR #### [facility] ([id number]) [address] [place] [address] 39389 #### 53103-4, 2088-06 #### [facility] ([id number]) [address] [facility], [address] [place] [address] COMPREHENSIVE METABOLIC PANE Ace 07-26-2023 Albumin [Mass/Vol] 3.2 g/dL Normal 3.2-5.3 [facility] Comment on above: Performed By: #### C BCA, CMP, 03971-6, THYR #### [facility] ([id number]) [address] [place] [address] 07396 #### 58264-4, 2088-06 #### [facility] ([id number]) [address], [address] [place] [address] ALP [Catalytic activity/Vol] 105 U/L Normal 39-130 [facility] Comment on above: Performed By: #### C BCA, CMP, 76124-3, THYR #### [facility] ([id number]) [address] [place] [address] 05609 #### 57621-0, 2088-06 #### [facility] ([id number]) [address] [facility], [address] [place] [address] ALT [Catalytic activity/Vol] 10 U/L Normal 0-31 [facility] Comment on above: Performed By: #### C BCA, CMP, 57165-1, THYR #### [facility] ([id number]) [address] [place] [address] 15221 #### 58872-6, 2088-06 #### [facility] ([id number]) [address] [facility], [address] [place] [address] Anion gap [Moles/Vol] 12 mmol/L Normal 5-15 [facility] Comment on above: Performed By: #### C BCA, CMP, 41597-8, THYR #### [facility] ([id number]) [address] [place] [address] 31646 #### 51932-0, 2088-06 #### [facility] ([id number]) [address] [facility], [address] [place] [address] AST [Catalytic activity/Vol] 14 U/L Normal 0-41 [facility] Comment on above: Performed By: #### C BCA, CMP, 34347-5, THYR #### [facility] ([id number]) [address] [place] [address] 71416 #### 37573-2, 2088-06 #### [facility] ([id number]) [address] [facility], [address] [place] [address] Bilirubin [Mass/Vol] 0.4 mg/dL Normal 0.3-1.2 [facility] Comment on above: Performed By: #### C BCA, CMP, 51103-2, THYR #### [facility] ([id number]) [address] [place] [address] 98522 #### 43455-0, 2088-06 #### [facility] ([id number]) [address] [facility], [address] [place] [address] Calcium [Mass/Vol] 9.0 mg/dL Normal 8.5-10.5 [facility] Comment on above: Performed By: #### C BCA, CMP, 10038-7, THYR #### [facility] ([id number]) [address] [place] [address] 11475 #### 33444-6, 2088-06 #### [facility] ([id number]) [address] [facility], [address] [place] [address] Chloride [Moles/Vol] 96 mmol/L Low 98-109 [facility] Comment on above: Performed By: #### C BCA, CMP, 92754-1, THYR #### [facility] ([id number]) [address] [place] [address] 75349 #### 58139-8, 2088-06 #### [facility] ([id number]) [address] [facility], [address] [place] [address] CO2 [Moles/Vol] 22 mmol/L Normal 22-32 [facility] Comment on above: Performed By: #### C BCA, CMP, 88026-6, THYR #### [facility] ([id number]) [address] [place] [address] 63871 #### 22522-0, 2088-06 #### [facility] ([id number]) [address] [facility], [address] [place] [address] Creatinine [Mass/Vol] 2.38 mg/dL High 0.40-1.00 [facility] Comment on above: Result Comment: METH OD TRACEABLE TO IDMS STANDARD Performed By: #### C BCA, CMP, 23627-8, THYR #### [facility] ([id number]) [address] [place] [address] 16945 #### 28669-2, 2088-06 #### [facility] ([id number]) [address] [facility], [address] [place] [address] GFR/1.73 sq M.predicted among non-blacks MDRD (S/P/Bld) [Vol rate/Area] 23 mL/min/{1.73_m2} Low >59 [facility] Comment on above: Result Comment: Reported eGFR is based on the CKD-EPI 2020 equation that does not use a race coefficient. Performed By: #### C BCA, CMP, 86606-4, THYR #### [facility] ([id number]) [address] [place] [address] 51724 #### 46704-9, 2088-06 #### [facility] ([id number]) [address] [facility], [address] [place] [address] Glucose [Mass/Vol] 116 mg/dL High 65-99 [facility] Comment on above: Performed By: #### C BCA CMP, 20802-7, THYR #### [facility] ([id number]) [address] [place] [address] 46445 #### 48106-3, 2088-06 #### [facility] ([id number]) [address] [facility], [address] [place] [address] Potassium [Moles/Vol] 3.3 mmol/L Low 3.5-5.0 [facility] Comment on above: Performed By: #### Teresa BCA, CMP, 46577-4, THYR #### [facility] ([id number]) [address] [place] [address] 07813 #### 24239-0, 2088-06 #### [facility] ([id number]) [address] [facility], [address] [place] [address] Protein [Mass/Vol] 7.0 g/dL Normal 6.0-8.0 [facility] Comment on above: Performed By: #### C BCA, CMP, 56038-8, THYR #### [facility] ([id number]) [address] [place] [address] 22673 #### 78251-6, 2088-06 #### [facility] ([id number]) [address], [address] [place] [address] Sodium [Moles/Vol] 130 mmol/L Low 134-146 [facility] Comment on above: Performed By: #### C MARQUES, CMP, 03115-3, THYR #### [facility] ([id number]) [address] [place] [address] 10778 #### 44418-5, 2088-06 #### [facility] ([id number]) [address], [address] [place] [address] Urea nitrogen [Mass/Vol] 43 mg/dL High 5-23 [facility] Comment on above: Performed By: #### C MARQUES, CMP, 21046-5, THYR #### [facility] ([id number]) [address] [place] [address] 22048 #### 28223-0, 2088-06 #### [facility] ([id number]) [address], [address] [place] [address] Glucose Glucometer (BldC) [M ass/Vol]on 07-26-2023 Glucose [Mass/Vol] 174 mg/dL High 65-99 [facility] MAGNESIUMon 07-26-2023 Magnesium [Mass/Vol] 1.9 mg/dL Normal 1.8-2.6 [facility] Comment on above: Performed By: #### C BCA, CMP, 98429-8, THYR #### [facility] ([id number]) [address] [place] [address] 09159 #### 26180-9, 2088-06 #### [facility] ([id number]) [address], [address] [place] [address] CBC AND AUTO DIFFon 07-25-19 ABSOLUTE BASOPHIL 0.1 X10E9/L Normal 0.0-0.2 [facility] Comment on above: Performed By: #### C BCA, CMP, 18350-3, THYR #### [facility] ([id number]) [address] [place] [address] 11575 #### 23998-8, 2088-06 #### [facility] ([id number]) [address] [facility], [address] [place] [address] ABSOLUTE NEUTROPHIL 6.6 X10E9/L Normal 1.5-6.6 [facility] Comment on above: Performed By: #### C MARQUES, CMP, 05852-0, THYR #### [facility] ([id number]) [address] [place] [address] 39033 #### 39618-8, 2088-06 #### [facility] ([id number]) [address] [facility], [address] [place] [address] Basophils/100 WBC (Bld) 0.7 % Normal [facility] Comment on above: Performed By: #### C MARQUES, CMP, 15585-6, THYR #### [facility] ([id number]) [address] [place] [address] 58347 #### 66914-3, 2088-06 #### [facility] ([id number]) [address] [facility], [address] [place] [address] Eosinophils (Bld) [#/Vol] 0.3 10*3/uL Normal 0.0-0.4 [facility] Comment on above: Performed By: #### C BCA, CMP, 24462-9, THYR #### [facility] ([id number]) [address] [place] [address] 52641 #### 85665-0, 2088-06 #### [facility] ([id number]) [address], [address] [place] [address] Eosinophils/100 WBC (Bld) 2.8 % Normal [facility] Comment on above: Performed By: #### C BCA, CMP, 86995-6, THYR #### [facility] ([id number]) [address] [place] [address] 88738 #### 72239-2, 2088-06 #### [facility] ([id number]) [address], [address] [place] [address] Erythrocyte distribution width (RBC) [Ratio] 14.4 % Normal 11.5-15.0 [facility] Comment on above: Performed By: #### C BCA, CMP, 64477-7, THYR #### [facility] ([id number]) [address] [place] [address] 32100 #### 64824-3, 2088-06 #### [facility] ([id number]) [address], [address] [place] [address] Hematocrit (Bld) [Volume fraction] 36.8 % Normal 35-47 [facility] Comment on above: Performed By: #### Teresa BCA, CMP, 35747-7, THYR #### [facility] ([id number]) [address] [place] [address] 51010 #### 99583-1, 2088-06 #### [facility] ([id number]) [address], [address] [place] [address] Hemoglobin (Bld) [Mass/Vol] 12.5 g/dL Normal 11.7-15.5 [facility] Comment on above: Performed By: #### C BCA, CMP, 04672-7, THYR #### [facility] ([id number]) [address] [place] [address] 33153 #### 00304-3, 2088-06 #### [facility] ([id number]) [address] [place] [address], [address] [place] [address] Lymphocytes (Bld) [#/Vol] 2.1 10*3/uL Normal 1.0-3.5 [facility] Comment on above: Performed By: #### C BCA, CMP, 31681-3, THYR #### [facility] ([id number]) [address] [place] [address] 05815 #### 57682-4, 2088-06 #### [facility] ([id number]) [address] [place] [address], [address] [place] [address] Lymphocytes/100 WBC (Bld) 20.8 % Normal [facility] Comment on above: Performed By: #### Teresa BCA, CMP, 68304-6, THYR #### [facility] ([id number]) [address] [place] [address] 12479 #### 84237-7, 2088-06 #### [facility] ([id number]) [address] [place] [address], [address] [place] [address] MCH (RBC) [Entitic mass] 27.3 pg Normal 27-34 [facility] Comment on above: Performed By: #### Teresa BCA, CMP, 98776-0, THYR #### [facility] ([id number]) [address] [place] [address] 93023 #### 88331-1, 2088-06 #### [facility] ([id number]) [address] [place] [address], [address] [place] [address] MCHC (RBC) [Mass/Vol] 34.0 g/dL Normal 32-36 [facility] Comment on above: Performed By: #### C BCA, CMP, 37026-6, THYR #### [facility] ([id number]) [address] [place] [address] 97006 #### 48362-4, 2088-06 #### [facility] ([id number]) [address], [address] [place] [address] MCV (RBC) [Entitic vol] 80 fL Normal 80-100 [facility] Comment on above: Performed By: #### C BCA, CMP, 28929-2, THYR #### [facility] ([id number]) [address] [place] [address] 12054 #### 14108-0, 2088-06 #### [facility] ([id number]) [address], [address] [place] [address] Monocytes (Bld) [#/Vol] 0.9 10*3/uL Normal 0-0.9 [facility] Comment on above: Performed By: #### Teresa BCA, CMP, 91725-4, THYR #### [facility] ([id number]) [address] [place] [address] 24516 #### 71324-6, 2088-06 #### [facility] ([id number]) [address], [address] [place] [address] Monocytes/100 WBC (Bld) 8.8 % Normal [facility] Comment on above: Performed By: #### Teresa BCA, CMP, 21248-5, THYR #### [facility] ([id number]) [address] [place] [address] 37574 #### 04005-1, 2088-06 #### [facility] ([id number]) [address], [address] [place] [address] Neutrophils/100 WBC (Bld) 66.9 % Normal [facility] Comment on above: Performed By: #### C BCA, CMP, 06306-8, THYR #### [facility] ([id number]) [address] [place] [address] 51822 #### 36707-7, 2088-06 #### [facility] ([id number]) [address], [address] [place] [address] Platelet mean volume (Bld) [Entitic vol] 8.5 fL Normal 7-12 [facility] Comment on above: Performed By: #### C BCA, CMP, 83159-9, THYR #### [facility] ([id number]) [address] [place] [address] 19692 #### 70432-9, 2088-06 #### [facility] ([id number]) [address] [facility], [address] [place] [address] Platelets (Bld) [#/Vol] 248 10*3/uL Normal 150-450 [facility] Comment on above: Performed By: #### C BCA, CMP, 98695-0, THYR #### [facility] ([id number]) [address] [place] [address]91 #### 18630-6, 2088-06 #### [facility] ([id number]) [address] [facility], [address] [place] [address] RBC COUNT 4.58 X10E12/L Normal 3.80-5.20 [facility] Comment on above: Performed By: #### C BCA, CMP, 77242-7, THYR #### [facility] ([id number]) [address] [place] [address] #### 98807-3, 2088-06 #### [facility] ([id number]) [address] [facility], [address] [place] [address] WBC (Bld) [#/Vol] 9.9 10*3/uL Normal 4.0-11.0 [facility] Comment on above: Performed By: #### C BCA, CMP, 66261-7, THYR #### [facility] ([id number]) [address] [place] [address]3781 #### 90036-0, 2088-06 #### [facility] ([id number]) [address], [address] [place] [address] COMPREHENSIVE METABOLIC PANE Ace 07-25-2023 Albumin [Mass/Vol] 3.7 g/dL Normal 3.2-5.3 [facility] Comment on above: Performed By: #### C BCA, CMP, 61300-9, THYR #### [facility] ([id number]) [address] [place] [address] #### 28575-5, 2088-06 #### [facility] ([id number]) [address], [address] [place] [address] ALP [Catalytic activity/Vol] 119 U/L Normal 39-130 [facility] Comment on above: Performed By: #### C BCA, CMP, 59044-9, THYR #### [facility] ([id number]) [address] [place] [address]673 #### 72382-6, 2088-06 #### [facility] ([id number]) [address], [address] [place] [address] ALT [Catalytic activity/Vol] 14 U/L Normal 0-31 [facility] Comment on above: Performed By: #### C BCA, CMP, 85791-2, THYR #### [facility] ([id number]) [address] [place] [address] 18427 #### 93914-9, 2088-06 #### [facility] ([id number]) [address], [address] [place] [address] Anion gap [Moles/Vol] 13 mmol/L Normal 5-15 [facility] Comment on above: Performed By: #### C BCA, CMP, 37098-9, THYR #### [facility] ([id number]) [address] [place] [address]0582 #### 33706-2, 2088-06 #### [facility] ([id number]) [address], [address] [place] [address] AST [Catalytic activity/Vol] 20 U/L Normal 0-41 [facility] Comment on above: Performed By: #### C BCA, CMP, 31513-4, THYR #### [facility] ([id number]) [address] [place] [address] 96989 #### 89881-5, 2088-06 #### [facility] ([id number]) [address] [facility], [address] [place] [address] Bilirubin [Mass/Vol] 0.7 mg/dL Normal 0.3-1.2 [facility] Comment on above: Performed By: #### C BCA, CMP, 43128-3, THYR #### [facility] ([id number]) [address] [place] [address] 89278 #### 32412-7, 2088-06 #### [facility] ([id number]) [address], [address] [place] [address] Calcium [Mass/Vol] 9.1 mg/dL Normal 8.5-10.5 [facility] Comment on above: Performed By: #### C BCA, CMP, 88675-3, THYR #### [facility] ([id number]) [address] [place] [address] 28037 #### 31521-1, 2088-06 #### [facility] ([id number]) [address], [address] [place] [address] Chloride [Moles/Vol] 97 mmol/L Low 98-109 [facility] Comment on above: Performed By: #### C NIKKY MOHAN, 79799-3, THYR #### [facility] ([id number]) [address] [place] [address] 58751 #### 78915-3, 2088-06 #### [facility] ([id number]) [address] [facility], [address] [place] [address] CO2 [Moles/Vol] 21 mmol/L Low 22-32 [facility] Comment on above: Performed By: #### C NIKKY MOHAN, 56267-7, THYR #### [facility] ([id number]) [address] [place] [address] 71092 #### 92626-7, 2088-06 #### [facility] ([id number]) [address] [facility], [address] [place] [address] Creatinine [Mass/Vol] 2.04 mg/dL High 0.40-1.00 [facility] Comment on above: Result Comment: METH OD TRACEABLE TO IDMS STANDARD Performed By: #### C NIKKY MOHAN, 18265-9, THYR #### [facility] ([id number]) [address] [place] [address] 41697 #### 69455-1, 2088-06 #### [facility] ([id number]) [address] [facility], [address] [place] [address] GFR/1.73 sq M.predicted among non-blacks MDRD (S/P/Bld) [Vol rate/Area] 27 mL/min/{1.73_m2} Low >59 [facility] Comment on above: Result Comment: Reported eGFR is based on the CKD-EPI 2020 equation that does not use a race coefficient. Performed By: #### C MARQUES, CMP, 01985-5, THYR #### [facility] ([id number]) [address] [place] [address] 91751 #### 81798-0, 2088-06 #### [facility] ([id number]) [address] [facility], [address] [place] [address] Glucose [Mass/Vol] 187 mg/dL High 65-99 [facility] Comment on above: Performed By: #### C BCA, CMP, 20822-9, THYR #### [facility] ([id number]) [address] [place] [address] 39874 #### 68456-9, 2088-06 #### [facility] ([id number]) [address] [facility], [address] [place] [address] Potassium [Moles/Vol] 3.5 mmol/L Normal 3.5-5.0 [facility] Comment on above: Performed By: #### C BCA, CMP, 45154-2, THYR #### [facility] ([id number]) [address] [place] [address] 40184 #### 16928-5, 2088-06 #### [facility] ([id number]) [facility] [facility], [address] [place] [address] Protein [Mass/Vol] 7.9 g/dL Normal 6.0-8.0 [facility] Comment on above: Performed By: #### C BCA, CMP, 72668-8, THYR #### [facility] ([id number]) [address] [place] [address] 27040 #### 35198-2, 2088-06 #### [facility] ([id number]) [address] [facility], [address] [place] [address] Sodium [Moles/Vol] 131 mmol/L Low 134-146 [facility] Comment on above: Performed By: #### C BCA, CMP, 71268-9, THYR #### [facility] ([id number]) [address] [place] [address] 32467 #### 02044-4, 2088-06 #### [facility] ([id number]) [address], [address] [place] [address] Urea nitrogen [Mass/Vol] 34 mg/dL High 5-23 [facility] Comment on above: Performed By: #### C NIKKY MOHAN, 48903-5, THYR #### [facility] ([id number]) [address] [place] [address] 08044 #### 73196-5, 2088-06 #### [facility] ([id number]) [address], [address] [place] [address] Glucose Glucometer (BldC) [M ass/Vol]on 07-25-2023 Glucose [Mass/Vol] 245 mg/dL High 65-99 [facility] Glucose [Mass/Vol] 183 mg/dL High 65-99 [facility] Glucose [Mass/Vol] 207 mg/dL High 65-99 [facility] MAGNESIUMon 07-25-2023 Magnesium [Mass/Vol] 2.3 mg/dL Normal 1.8-2.6 [facility] Comment on above: Performed By: #### C NIKKY MOHAN, 39309-1, THYR #### [facility] ([id number]) [address] [place] [address] 44294 #### 19839-1, 2088-06 #### [facility] ([id number]) [address], [address] [place] [address] POTASSIUMon 07-25-2023 Potassium [Moles/Vol] 4.1 mmol/L Normal 3.5-5.0 [facility] Comment on above: Performed By: #### Teresa MOHAN CMP, 98523-2, THYR #### [facility] ([id number]) [address] [place] [address] 94619 #### 77476-8, 2088-06 #### [facility] ([id number]) [address], [address] [place] [address] CBC AND AUTO DIFFon 07-24-19 24 ABSOLUTE BASOPHIL 0.1 X10E9/L Normal 0.0-0.2 [facility] Comment on above: Performed By: #### C BCA, CMP, 81244-0, THYR #### [facility] ([id number]) [address] [place] [address] 93041 #### 72159-8, 2088-06 #### [facility] ([id number]) [address] [facility], [address] [place] [address] ABSOLUTE NEUTROPHIL 5.4 X10E9/L Normal 1.5-6.6 [facility] Comment on above: Performed By: #### C BCA, CMP, 33727-0, THYR #### [facility] ([id number]) [address] [place] [address] 37802 #### 30144-8, 2088-06 #### [facility] ([id number]) [address], [address] [place] [address] Basophils/100 WBC (Bld) 0.7 % Normal [facility] Comment on above: Performed By: #### C BCA, CMP, 35685-6, THYR #### [facility] ([id number]) [address] [place] [address] 24935 #### 42344-0, 2088-06 #### [facility] ([id number]) [address], [address] [place] [address] Eosinophils (Bld) [#/Vol] 0.2 10*3/uL Normal 0.0-0.4 [facility] Comment on above: Performed By: #### C BCA, CMP, 63242-1, THYR #### [facility] ([id number]) [address] [place] [address] 74917 #### 50264-6, 2088-06 #### [facility] ([id number]) [address], [address] [place] [address] Eosinophils/100 WBC (Bld) 2.7 % Normal [facility] Comment on above: Performed By: #### C BCA, CMP, 15375-6, THYR #### [facility] ([id number]) [address] [place] [address] 00769 #### 04281-3, 2088-06 #### [facility] ([id number]) [address], [address] [place] [address] Erythrocyte distribution width (RBC) [Ratio] 14.3 % Normal 11.5-15.0 [facility] Comment on above: Performed By: #### C BCA, CMP, 67582-5, THYR #### [facility] ([id number]) [address] [place] [address] 66035 #### 02351-3, 2088-06 #### [facility] ([id number]) [address], [address] [place] [address] Hematocrit (Bld) [Volume fraction] 35.1 % Normal 35-47 [facility] Comment on above: Performed By: #### C BCA, CMP, 84016-1, THYR #### [facility] ([id number]) [address] [place] [address] 60120 #### 99535-1, 2088-06 #### [facility] ([id number]) [address], [address] [place] [address] Hemoglobin (Bld) [Mass/Vol] 12.0 g/dL Normal 11.7-15.5 [facility] Comment on above: Performed By: #### C BCA, CMP, 64720-4, THYR #### [facility] ([id number]) [address] [place] [address] 65511 #### 94799-9, 2088-06 #### [facility] ([id number]) [address], [address] [place] [address] Lymphocytes (Bld) [#/Vol] 2.3 10*3/uL Normal 1.0-3.5 [facility] Comment on above: Performed By: #### C BCA, CMP, 74495-1, THYR #### [facility] ([id number]) [address] [place] [address] 35722 #### 60140-4, 2088-06 #### [facility] ([id number]) [address], [address] [place] [address] Lymphocytes/100 WBC (Bld) 26.1 % Normal [facility] Comment on above: Performed By: #### C BCA, CMP, 69725-2, THYR #### [facility] ([id number]) [address] [place] [address] 16263 #### 78743-0, 2088-06 #### [facility] ([id number]) [address], [address] [place] [address] MCH (RBC) [Entitic mass] 27.2 pg Normal 27-34 [facility] Comment on above: Performed By: #### C BCA, CMP, 82002-7, THYR #### [facility] ([id number]) [address] [place] [address] 69983 #### 10085-6, 2088-06 #### [facility] ([id number]) [address], [address] [place] [address] MCHC (RBC) [Mass/Vol] 34.2 g/dL Normal 32-36 [facility] Comment on above: Performed By: #### C BCA, CMP, 90267-5, THYR #### [facility] ([id number]) [address] [place] [address] 49809 #### 33230-1, 2088-06 #### [facility] ([id number]) [address], [address] [place] [address] MCV (RBC) [Entitic vol] 80 fL Normal 80-100 [facility] Comment on above: Performed By: #### C BCA, CMP, 24843-2, THYR #### [facility] ([id number]) [address] [place] [address] 02461 #### 63172-0, 2088-06 #### [facility] ([id number]) [address], [address] [place] [address] Monocytes (Bld) [#/Vol] 0.9 10*3/uL Normal 0-0.9 [facility] Comment on above: Performed By: #### C BCA, CMP, 85287-6, THYR #### [facility] ([id number]) [address] [place] [address] 64657 #### 40225-5, 2088-06 #### [facility] ([id number]) [address], [address] [place] [address] Monocytes/100 WBC (Bld) 9.8 % Normal [facility] Comment on above: Performed By: #### C BCA, CMP, 01439-6, THYR #### [facility] ([id number]) [address] [place] [address] 51775 #### 00848-2, 2088-06 #### [facility] ([id number]) [address], [address] [place] [address] Neutrophils/100 WBC (Bld) 60.7 % Normal [facility] Comment on above: Performed By: #### C BCA, CMP, 59231-2, THYR #### [facility] ([id number]) [address] [place] [address] 46952 #### 65932-7, 2088-06 #### [facility] ([id number]) [address], [address] [place] [address] Platelet mean volume (Bld) [Entitic vol] 8.7 fL Normal 7-12 [facility] Comment on above: Performed By: #### C BCA, CMP, 63995-1, THYR #### [facility] ([id number]) [address] [place] [address] 58921 #### 33722-1, 2088-06 #### [facility] ([id number]) [address] [facility], [address] [place] [address] Platelets (Bld) [#/Vol] 288 10*3/uL Normal 150-450 [facility] Comment on above: Performed By: #### Teresa BCA, CMP, 43556-1, THYR #### [facility] ([id number]) [address] [place] [address] 58537 #### 98925-7, 2088-06 #### [facility] ([id number]) [address], [address] [place] [address] RBC COUNT 4.41 X10E12/L Normal 3.80-5.20 [facility] Comment on above: Performed By: #### C BCA, CMP, 36230-2, THYR #### [facility] ([id number]) [address] [place] [address] 31741 #### 37900-1, 2088-06 #### [facility] ([id number]) [address], [address] [place] [address] WBC (Bld) [#/Vol] 8.8 10*3/uL Normal 4.0-11.0 [facility] Comment on above: Performed By: #### C BCA, CMP, 91448-4, THYR #### [facility] ([id number]) [address] [place] [address] 26042 #### 93911-8, 2088-06 #### [facility] ([id number]) [address] [facility], [address] [place] [address] COMPREHENSIVE METABOLIC PANE Ace 07-24-2023 Albumin [Mass/Vol] 3.6 g/dL Normal 3.2-5.3 [facility] Comment on above: Performed By: #### C BCA, CMP, 69302-8, THYR #### [facility] ([id number]) [address] [place] [address] 20080 #### 46827-2, 2088-06 #### [facility] ([id number]) [address] [facility], [address] [place] [address] ALP [Catalytic activity/Vol] 120 U/L Normal 39-130 [facility] Comment on above: Performed By: #### C BCA, CMP, 49271-3, THYR #### [facility] ([id number]) [address] [place] [address] 81590 #### 65895-5, 2088-06 #### [facility] ([id number]) [address] [facility], [address] [place] [address] ALT [Catalytic activity/Vol] 11 U/L Normal 0-31 [facility] Comment on above: Performed By: #### C BCA, CMP, 58727-4, THYR #### [facility] ([id number]) [address] [place] [address] 19091 #### 79010-2, 2088-06 #### [facility] ([id number]) [address] [facility], [address] [place] [address] Anion gap [Moles/Vol] 11 mmol/L Normal 5-15 [facility] Comment on above: Performed By: #### C BCA, CMP, 67161-8, THYR #### [facility] ([id number]) [address] [place] [address] 71223 #### 41334-8, 2088-06 #### [facility] ([id number]) [address] [place] [address], [address] [place] [address] AST [Catalytic activity/Vol] 15 U/L Normal 0-41 [facility] Comment on above: Performed By: #### C BCA, CMP, 44435-5, THYR #### [facility] ([id number]) [address] [place] [address] 05112 #### 15718-0, 2088-06 #### [facility] ([id number]) [address] [place] [address], [address] [place] [address] Bilirubin [Mass/Vol] 0.5 mg/dL Normal 0.3-1.2 [facility] Comment on above: Performed By: #### C BCA, CMP, 71906-3, THYR #### [facility] ([id number]) [address] [place] [address] 50599 #### 86247-4, 2088-06 #### [facility] ([id number]) [address] [place] [address], [address] [place] [address] Calcium [Mass/Vol] 9.4 mg/dL Normal 8.5-10.5 [facility] Comment on above: Performed By: #### C BCA, CMP, 84334-8, THYR #### [facility] ([id number]) [address] [place] [address] 06807 #### 58360-2, 2088-06 #### [facility] ([id number]) [address] [place] [address], [address] [place] [address] Chloride [Moles/Vol] 101 mmol/L Normal 98-109 [facility] Comment on above: Performed By: #### C BCA, CMP, 35006-8, THYR #### [facility] ([id number]) [address] [place] [address] 75563 #### 80365-8, 2088-06 #### [facility] ([id number]) [address] [place] [address], [address] [place] [address] CO2 [Moles/Vol] 24 mmol/L Normal 22-32 [facility] Comment on above: Performed By: #### C BCA, CMP, 39850-5, THYR #### [facility] ([id number]) [address] [place] [address] 49806 #### 33325-7, 2088-06 #### [facility] ([id number]) [address] [place] [address], [address] [place] [address] Creatinine [Mass/Vol] 2.02 mg/dL High 0.40-1.00 [facility] Comment on above: Result Comment: METH OD TRACEABLE TO IDMS STANDARD Performed By: #### C BCA, CMP, 09670-6, THYR #### [facility] ([id number]) [address] [place] [address] 80276 #### 37858-1, 2088-06 #### [facility] ([id number]) [address] [place] [address], [address] [place] [address] GFR/1.73 sq M.predicted among non-blacks MDRD (S/P/Bld) [Vol rate/Area] 28 mL/min/{1.73_m2} Low >59 [facility] Comment on above: Result Comment: Reported eGFR is based on the CKD-EPI 2020 equation that does not use a race coefficient. Performed By: #### C MARQUES CMP, 31329-0, THYR #### [facility] ([id number]) [address] [place] [address] 15180 #### 86662-7, 2088-06 #### [facility] ([id number]) [address], [address] [place] [address] Glucose [Mass/Vol] 68 mg/dL Normal 65-99 [facility] Comment on above: Performed By: #### C MARQUES CMP, 82381-5, THYR #### [facility] ([id number]) [address] [place] [address] 21252 #### 86011-6, 2088-06 #### [facility] ([id number]) [address], [address] [place] [address] Potassium [Moles/Vol] 2.9 mmol/L Low 3.5-5.0 [facility] Comment on above: Performed By: #### C MARQUES CMP, 79228-4, THYR #### [facility] ([id number]) [address] [place] [address] 34715 #### 76673-8, 2088-06 #### [facility] ([id number]) [address], [address] [place] [address] Protein [Mass/Vol] 7.9 g/dL Normal 6.0-8.0 [facility] Comment on above: Performed By: #### C MARQUES CMP, 25854-3, THYR #### [facility] ([id number]) [address] [place] [address] 75363 #### 44708-9, 2088-06 #### [facility] ([id number]) [address], [address] [place] [address] Sodium [Moles/Vol] 136 mmol/L Normal 134-146 [facility] Comment on above: Performed By: #### Teresa MOHAN CMP, 29398-5, THYR #### [facility] ([id number]) [address] [place] [address] #### 55774-8, 2088-06 #### [facility] ([id number]) [address], [address] [place] [address] Urea nitrogen [Mass/Vol] 35 mg/dL High 5-23 [facility] Comment on above: Performed By: #### Teresa MOHAN CMP, 00125-0, THYR #### [facility] ([id number]) [address] [place] [address] 37364 #### 74659-7, 2088-06 #### [facility] ([id number]) [address], [address] [place] [address] Glucose Glucometer (BldC) [M ass/Vol]on 07-24-2023 Glucose [Mass/Vol] 245 mg/dL High 65-99 [facility] Glucose [Mass/Vol] 204 mg/dL High 65-99 [facility] Glucose [Mass/Vol] 134 mg/dL High 65-99 [facility] MAGNESIUMon 07-24-2023 Magnesium [Mass/Vol] 2.6 mg/dL Normal 1.8-2.6 [facility] Comment on above: Performed By: #### C NIKKY MOHAN, 26430-2, THYR #### [facility] ([id number]) [address] [place] [address] 31281 #### 83216-6, 2088-06 #### [facility] ([id number]) [address], [address] [place] [address] Magnesium [Mass/Vol] 1.6 mg/dL Low 1.8-2.6 [facility] Comment on above: Performed By: #### C BCA, CMP, 08464-5, THYR #### [facility] ([id number]) [address] [place] [address] 86612 #### 59503-6, 2088-06 #### [facility] ([id number]) [address], [address] [place] [address] POTASSIUMon 07-24-2023 Potassium [Moles/Vol] 3.9 mmol/L Normal 3.5-5.0 [facility] Comment on above: Performed By: #### C BCA, CMP, 75783-8, THYR #### [facility] ([id number]) [address] [place] [address] 69683 #### 17669-6, 2088-06 #### [facility] ([id number]) [address], [address] [place] [address] CBC AND AUTO DIFFon 07-23-19 ABSOLUTE BASOPHIL 0.1 X10E9/L Normal 0.0-0.2 [facility] Comment on above: Performed By: #### C BCA, CMP, 59780-1, THYR #### [facility] ([id number]) [address] [place] [address] 72648 #### 43178-5, 2088-06 #### [facility] ([id number]) [address], [address] [place] [address] ABSOLUTE NEUTROPHIL 7.1 X10E9/L High 1.5-6.6 [facility] Comment on above: Performed By: #### C BCA, CMP, 19378-1, THYR #### [facility] ([id number]) [address] [place] [address] 22346 #### 11644-3, 2088-06 #### [facility] ([id number]) [address], [address] [place] [address] Basophils/100 WBC (Bld) 0.9 % Normal [facility] Comment on above: Performed By: #### C NIKKY MOHAN, 97816-7, THYR #### [facility] ([id number]) [address] [place] [address]08 #### 02501-0, 2088-06 #### [facility] ([id number]) [address] [facility], [address] [place] [address] Eosinophils (Bld) [#/Vol] 0.3 10*3/uL Normal 0.0-0.4 [facility] Comment on above: Performed By: #### C NIKKY MOHAN, 02439-8, THYR #### [facility] ([id number]) [address] [place] [address]141 #### 30258-5, 2088-06 #### [facility] ([id number]) [address] [facility], [address] [place] [address] Eosinophils/100 WBC (Bld) 2.5 % Normal [facility] Comment on above: Performed By: #### C NIKKY MOHAN, 21970-3, THYR #### [facility] ([id number]) [address] [place] [address] 75663 #### 43938-4, 2088-06 #### [facility] ([id number]) [address] [facility], [address] [place] [address] Erythrocyte distribution width (RBC) [Ratio] 14.7 % Normal 11.5-15.0 [facility] Comment on above: Performed By: #### Teresa MOHAN CMP, 67194-0, THYR #### [facility] ([id number]) [address] [place] [address] 18460 #### 22595-0, 2088-06 #### [facility] ([id number]) [address], [address] [place] [address] Hematocrit (Bld) [Volume fraction] 39.8 % Normal 35-47 [facility] Comment on above: Performed By: #### C BCA, CMP, 49708-7, THYR #### [facility] ([id number]) [address] [place] [address] 47[address] #### 13189-0, 2088-06 #### [facility] ([id number]) [address], [address] [place] [address] Hemoglobin (Bld) [Mass/Vol] 13.6 g/dL Normal 11.7-15.5 [facility] Comment on above: Performed By: #### C BCA, CMP, 68154-7, THYR #### [facility] ([id number]) [address] [place] [address] 44177 #### 41133-9, 2088-06 #### [facility] ([id number]) [address] [facility], [address] [place] [address] Lymphocytes (Bld) [#/Vol] 2.4 10*3/uL Normal 1.0-3.5 [facility] Comment on above: Performed By: #### C BCA, CMP, 14492-8, THYR #### [facility] ([id number]) [address] [place] [address]2801 #### 82123-1, 2088-06 #### [facility] ([id number]) [address], [address] [place] [address] Lymphocytes/100 WBC (Bld) 21.8 % Normal [facility] Comment on above: Performed By: #### C BCA, CMP, 83231-5, THYR #### [facility] ([id number]) [address] [place] [address]1037 #### 93740-6, 2088-06 #### [facility] ([id number]) [address] [place] [address], [address] [place] [address] MCH (RBC) [Entitic mass] 27.5 pg Normal 27-34 [facility] Comment on above: Performed By: #### C BCA, CMP, 28398-1, THYR #### [facility] [facility] ([id number]) [address] [place] [address] 97314 #### 16752-7, 2088-06 #### [facility] ([id number]) [address] [place] [address], [address] [place] [address] MCHC (RBC) [Mass/Vol] 34.2 g/dL Normal 32-36 [facility] Comment on above: Performed By: #### C BCA, CMP, 94464-6, THYR #### [facility] ([id number]) [address] [place] [address] 21938 #### 33521-6, 2088-06 #### [facility] ([id number]) [address] [place] [address], [address] [place] [address] MCV (RBC) [Entitic vol] 80 fL Normal 80-100 [facility] Comment on above: Performed By: #### C BCA, CMP, 08985-6, THYR #### [facility] ([id number]) [address] [place] [address] 38768 #### 18888-0, 2088-06 #### [facility] ([id number]) [address] [place] [address], [address] [place] [address] Monocytes (Bld) [#/Vol] 1.0 10*3/uL High 0-0.9 [facility] Comment on above: Performed By: #### C BCA, CMP, 08075-7, THYR #### [facility] ([id number]) [address] [place] [address] 86975 #### 89625-8, 2088-06 #### [facility] ([id number]) [address] [facility], [address] [place] [address] Monocytes/100 WBC (Bld) 8.8 % Normal [facility] Comment on above: Performed By: #### C BCA, CMP, 47034-4, THYR #### [facility] ([id number]) [address] [place] [address] 67706 #### 69854-8, 2088-06 #### [facility] ([id number]) [address] [facility], [address] [place] [address] Neutrophils/100 WBC (Bld) 66.0 % Normal [facility] Comment on above: Performed By: #### C BCA, CMP, 33794-9, THYR #### [facility] ([id number]) [address] [place] [address] 97940 #### 08639-1, 2088-06 #### [facility] ([id number]) [address] [place] [address], [address] [place] [address] Platelet mean volume (Bld) [Entitic vol] 8.1 fL Normal 7-12 [facility] Comment on above: Performed By: #### Teresa BCA, CMP, 58537-4, THYR #### [facility] ([id number]) [address] [place] [address] 18928 #### 98319-4, 2088-06 #### [facility] ([id number]) [address] [place] [address], [address] [place] [address] Platelets (Bld) [#/Vol] 326 10*3/uL Normal 150-450 [facility] Comment on above: Performed By: #### C BCA, CMP, 85354-7, THYR #### [facility] ([id number]) [address] [place] [address] 33792 #### 73703-5, 2088-06 #### [facility] ([id number]) [address] [facility], [address] [place] [address] RBC COUNT 4.95 X10E12/L Normal 3.80-5.20 [facility] Comment on above: Performed By: #### C BCA, CMP, 42884-3, THYR #### [facility] ([id number]) [address] [place] [address] 13067 #### 82030-8, 2088-06 #### [facility] ([id number]) [address] [facility], [address] [place] [address] WBC (Bld) [#/Vol] 10.8 10*3/uL Normal 4.0-11.0 [facility] Comment on above: Performed By: #### C BCA, CMP, 77213-8, THYR #### [facility] ([id number]) [address] [place] [address] 18424 #### 00104-5, 2088-06 #### [facility] ([id number]) [address] [facility], [address] [place] [address] COMPREHENSIVE METABOLIC PANE Ace 07-23-2023 Albumin [Mass/Vol] 4.1 g/dL Normal 3.2-5.3 [facility] Comment on above: Performed By: #### C BCA, CMP, 08224-4, THYR #### [facility] ([id number]) [address] [place] [address] 77986 #### 57630-4, 2088-06 #### [facility] ([id number]) [address] [facility], [address] [place] [address] ALP [Catalytic activity/Vol] 133 U/L High 39-130 [facility] Comment on above: Performed By: #### C BCA, CMP, 07844-1, THYR #### [facility] ([id number]) [address] [place] [address] 35518 #### 43190-3, 2088-06 #### [facility] ([id number]) [address], [address] [place] [address] ALT [Catalytic activity/Vol] 12 U/L Normal 0-31 [facility] Comment on above: Performed By: #### C BCA, CMP, 74628-1, THYR #### [facility] ([id number]) [address] [place] [address] 09849 #### 11987-5, 2088-06 #### [facility] ([id number]) [address], [address] [place] [address] Anion gap [Moles/Vol] 13 mmol/L Normal 5-15 [facility] Comment on above: Performed By: #### C BCA, CMP, 09264-8, THYR #### [facility] ([id number]) [address] [place] [address] 95552 #### 16894-6, 2088-06 #### [facility] ([id number]) [address], [address] [place] [address] AST [Catalytic activity/Vol] 18 U/L Normal 0-41 [facility] Comment on above: Performed By: #### C BCA, CMP, 65197-8, THYR #### [facility] ([id number]) [address] [place] [address] 10486 #### 24261-6, 2088-06 #### [facility] ([id number]) [address], [address] [place] [address] Bilirubin [Mass/Vol] 0.4 mg/dL Normal 0.3-1.2 [facility] Comment on above: Performed By: #### C BCA, CMP, 88622-0, THYR #### [facility] ([id number]) [address] [place] [address] 13980 #### 88995-2, 2088-06 #### [facility] ([id number]) [address], [address] [place] [address] Calcium [Mass/Vol] 9.6 mg/dL Normal 8.5-10.5 [facility] Comment on above: Performed By: #### C BCA, CMP, 40745-8, THYR #### [facility] ([id number]) [address] [place] [address] 05116 #### 14741-0, 2088-06 #### [facility] ([id number]) [address], [address] [place] [address] Chloride [Moles/Vol] 99 mmol/L Normal 98-109 [facility] Comment on above: Performed By: #### C BCA, CMP, 18073-0, THYR #### [facility] ([id number]) [address] [place] [address] 17182 #### 82566-9, 2088-06 #### [facility] ([id number]) [address], [address] [place] [address] CO2 [Moles/Vol] 23 mmol/L Normal 22-32 [facility] Comment on above: Performed By: #### C BCA, CMP, 28261-6, THYR #### [facility] ([id number]) [address] [place] [address] 65861 #### 49407-2, 2088-06 #### [facility] ([id number]) [address], [address] [place] [address] Creatinine [Mass/Vol] 2.14 mg/dL High 0.40-1.00 [facility] Comment on above: Result Comment: METH OD TRACEABLE TO IDMS STANDARD Performed By: #### C NIKKY MOHAN, 44808-5, THYR #### [facility] ([id number]) [address] [place] [address] 54045 #### 90742-2, 2088-06 #### [facility] ([id number]) [address] [facility], [address] [place] [address] GFR/1.73 sq M.predicted among non-blacks MDRD (S/P/Bld) [Vol rate/Area] 26 mL/min/{1.73_m2} Low >59 [facility] Comment on above: Result Comment: Reported eGFR is based on the CKD-EPI 2020 equation that does not use a race coefficient. Performed By: #### C NIKKY MOHAN, 70814-1, THYR #### [facility] ([id number]) [address] [place] [address] 91393 #### 45581-4, 2088-06 #### [facility] ([id number]) [address] [facility], [address] [place] [address] Glucose [Mass/Vol] 159 mg/dL High 65-99 [facility] Comment on above: Performed By: #### C NIKKY MOHAN, 60344-7, THYR #### [facility] ([id number]) [address] [place] [address] 41091 #### 36205-5, 2088-06 #### [facility] ([id number]) [address] [facility], [address] [place] [address] Potassium [Moles/Vol] 3.4 mmol/L Low 3.5-5.0 [facility] Comment on above: Performed By: #### C NIKKY MOHAN, 37109-3, THYR #### [facility] ([id number]) [address] [place] [address] 71946 #### 43007-4, 2088-06 #### [facility] ([id number]) [address] [facility], [address] [place] [address] Protein [Mass/Vol] 9.4 g/dL High 6.0-8.0 [facility] Comment on above: Performed By: #### C MARQUES CMP, 07496-1, THYR #### [facility] ([id number]) [address] [place] [address] 28147 #### 76979-4, 2088-06 #### [facility] ([id number]) [address] [place] [address], [address] [place] [address] Sodium [Moles/Vol] 135 mmol/L Normal 134-146 [facility] Comment on above: Performed By: #### Teresa MOHAN CMP, 16219-4, THYR #### [facility] ([id number]) [address] [place] [address] 65763 #### 16153-3, 2088-06 #### [facility] ([id number]) [address] [place] [address], [address] [place] [address] Urea nitrogen [Mass/Vol] 38 mg/dL High 5-23 [facility] Comment on above: Performed By: #### Teresa MOHAN, CMP, 85551-6, THYR #### [facility] ([id number]) [address] [place] [address] 30846 #### 16432-3, 2088-06 #### [facility] ([id number]) [address] [facility], [address] [place] [address] CT BRAIN WO CONT STROKE ALER Ton [...] Dorsey MD on 07/23/2023 9:24 AM Normal [facility] CT CTA CAROTIDon 07-23-2023 CT CTA CAROTID [...] as low as reasonably achievable.. The [place] symptomatic carotid endarterectomy trial (NASCET) method for [...] Romero MD on 07/23/2023 9:36 AM Normal [facility] CT CTA HEADon 07-23-2023 CT CTA HEAD [...] Seals MD on 07/23/2023 9:36 AM Normal [facility] DIRECT LDLon 07-23-2023 Cholesterol in LDL [Mass/Vol] 190 mg/dL High <130 [facility] Comment on above: Result Comment: LDL <100 mg/dL - Desirable LDL 130-159 mg/dL - Borderline High Risk LDL >160 mg/dL - High Risk Performed By: #### C BCA, CMP, 43271-2, THYR #### [facility] ([id number]) [address] [place] [address], [place] [address] #### 00223-9, 9 #### [facility] ([id number]) [address] [facility], [address] [place] [address] Glucose Glucometer (BldC) [M ass/Vol]on 07-23-2023 Glucose [Mass/Vol] 116 mg/dL High 65-99 [facility] Glucose [Mass/Vol] 155 mg/dL High 65-99 [facility] Glucose [Mass/Vol] 109 mg/dL High 65-99 [facility] Glucose [Mass/Vol] 155 mg/dL High 65-99 [facility] HGB A1C (GLYCO-HGB)on 2023 Glucose [Mass/Vol] 171 mg/dL Normal [facility] Comment on above: Performed By: #### C MARQUES, CMP, 62176-4, THYR #### [facility] ([id number]) [address] [place] [address] 11715 #### 02210-9, 1 #### [facility] ([id number]) [address] [facility], [address] [place] [address] HbA1c (Bld) [Mass fraction] 7.6 % High 4.4-5.6 [facility] Comment on above: Result Comment: NOTE ADA Guidelines Result HgbA1c Normal : less than 5.7 % Prediabetes : 5.7 % to 6.4 % Diabetes : > 6.4 % Use with caution in patients with abnormal hemoglobin variants as the half-life of red blood cells and in vivo glycation rates are affected. Performed By: #### C MARQUES, CMP, 66059-9, THYR #### [facility] ([id number]) [address] [place] [address] 84178 #### 08462-4, 1 #### [facility] ([id number]) [address], [address] [place] [address] Lipid 1996 panelon Cholesterol [Mass/Vol] 327 mg/dL High 150-200 [facility] Comment on above: Performed By: #### C MARQUES, CMP, 51005-6, THYR #### [facility] ([id number]) [address] [place] [address] 72526 #### 09506-0, 2088-06 #### [facility] ([id number]) [address] [facility], [address] [place] [address] Cholesterol in HDL [Mass/Vol] 36 mg/dL Low >39 [facility] Comment on above: Result Comment: HDL <40 mg/dL - High Risk HDL > or = 40mg/dL- Desirable HDL >60 mg/dL - Negative Risk Performed By: #### C NIKKY MOHAN, 39310-5, THYR #### [facility] ([id number]) [address] [place] [address] 98256 #### 68317-8, 2088-06 #### [facility] ([id number]) [address] [facility], [address] [place] [address] Cholesterol in VLDL [Mass/Vol] 99 mg/dL High 0-30 [facility] Comment on above: Performed By: #### C MARQUES CMP, 37051-6, THYR #### [facility] ([id number]) [address] [place] [address] 38728 #### 21216-3, 2088-06 #### [facility] ([id number]) [address] [facility], [address] [place] [address] CHOLESTEROL:HDL 9.1 High 1.0-5.0 [facility] Comment on above: Performed By: #### C MARQUES CMP, 07065-5, THYR #### [facility] ([id number]) [address] [place] [address] 37801 #### 63915-4, 2088-06 #### [facility] ([id number]) [address], [address] [place] [address] LDL (CALC) RESULT NOT REPORTED DUE TO HIGH TRIGLYCERIDE Normal <130 [facility] Comment on above: Performed By: #### C NIKKY MOHAN, 48724-6, THYR #### [facility] ([id number]) [address] [place] [address] #### 66960-4, 2088-06 #### [facility] ([id number]) [address] [facility], [address] [place] [address] Triglyceride [Mass/Vol] 494 mg/dL High 27-150 [facility] Comment on above: Performed By: #### C NIKKY MOHAN, 60635-2, THYR #### [facility] ([id number]) [address] [place] [address] #### 40819-6, 2088-06 #### [facility] ([id number]) [address] [facility], [address] [place] [address] MR BRAIN WO CONTon MR BRAIN WO [...] Mccall MD on 07/23/2023 11:51 AM Normal [facility] THYROID PROFILEon 07-23-2023 Free T4 [Mass/Vol] 1.10 ng/dL Normal 0.61-1.60 [facility] Comment on above: Performed By: #### C BCA, CMP, 33208-7, THYR #### [facility] ([id number]) [address] [place] [address] 80723 #### 42004-5, 2088-06 #### [facility] ([id number]) [address], [address] [place] [address] TSH 2.88 uIU/mL Normal 0.49-4.67 [facility] Comment on above: Performed By: #### C BCA, CMP, 18523-9, THYR #### [facility] ([id number]) [address] [place] [address] 42851 #### 10431-1, 2088-06 #### [facility] ([id number]) [address], [address] [place] [address] TROPONIN Ion 07-23-2023 Troponin I.cardiac [Mass/Vol] 0.01 ng/mL Normal 0.00-0.04 [facility] Comment on above: Performed By: #### C BCA, CMP, 14827-8, THYR #### [facility] ([id number]) [address] [place] [address] 19620 #### 23332-9, 2088-06 #### [facility] ([id number]) [address], [address] [place] [address] Troponin I.cardiac [Mass/Vol] 0.03 ng/mL Normal 0.00-0.04 [facility] Comment on above: Performed By: #### C BCA, CMP, 44111-1, THYR #### [facility] ([id number]) [address] [facility], [place] [address] #### 72432-6, 2089-1 #### [facility] ([id number]) [address] [facility], [address] [place] [address] A1C HEMOGLOBINon 05-06-2023 HbA1c (Bld) [Mass fraction] 6.8 % [facility] Other Glucose - FINGER STICKon Glucose [Mass/Vol] 177 mg/dL [facility] Other HbA1c (Bld) [Mass fraction]o n 05-06-2023 A1C HEMOGLOBIN [facility] Other A1C HEMOGLOBINon 10-15-2021 HbA1c (Bld) [Mass fraction] 8 % [facility] Other Glucose - FINGER STICKon Glucose [Mass/Vol] 290 mg/dL [facility] Other HbA1c (Bld) [Mass fraction]o n 10-15-2021 A1C HEMOGLOBIN [facility] Other A1C HEMOGLOBINon 07-17-2021 HbA1c (Bld) [Mass fraction] 7.2 % [facility] Other Glucose - FINGER STICKon Glucose [Mass/Vol] 194 mg/dL [facility] Other HbA1c (Bld) [Mass fraction]o n 07-17-2021 A1C HEMOGLOBIN [facility] Other Creatinine W/GFR Point of Ca reon 09-07-2019 Creatinine [Mass/Vol] 1.95 mg/dL High 0.51 - 1.19 mg/dL [facility], [place] GFR Non- 27 mL/min Low >60 [place], [place] GFR/1.73 sq M predicted among non-blacks MDRD (S/P/Bld) [Vol rate/Area] 32 mL/min/{1.73_m2} Low >60 [place], [place] GFR/1.73 sq M predicted among non-blacks MDRD (S/P/Bld) [Vol rate/Area] [place], [place] Comment on above: Average GFR for 50-5 9 years old: 93 mL/min/1.73sq m Chronic Kidney Disease: <60 mL/min/1.73sq m Kidney failure: <15 mL/min/1.73sq m eGFR calculated using average adult body mass. Additional eGFR calculator available at: http://www.[employer]/multiple_crcl_2011.htm OPERATIVE REPORTon 0 OPERATIVE REPORT [address] [address] OPERATIVE REPORT PATIENT NAME: OLY HARRELL : 1960 MED REC NO: [id number] ROOM: ACCOUNT NO: [id number] ADMIT DATE: 09/07/2019 PROVIDER: Martir Bang DATE [...] in good condition. 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- Counseled patient that she needs [...] or sooner ifnew symptoms develop.Marla New MD [facility] PROGRESSon 10-04-2017 Protein mass conc HNO ID: [id number] thor: Marla Webb: (none)Author Type: PhysicianType: Progress NotesFiled: 10/04/2017 8:20 PMNote Text:Proliferative Diabetic Retinopathy, Both Eyes:- 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 follow-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- Counseled patient that she needs [...] or sooner ifnew symptoms develop.Marla New MD [facility] PROGRESSon 08-30-2017 Protein mass conc HNO ID: [id number] thor: Marla Webb: (none)Author Type: PhysicianType: Progress NotesFiled: 08/30/2017 1:01 PMNote Text:Proliferative Diabetic Retinopathy, Both Eyes:- Unable to follow-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 I have seen and examined Oly Lin have discussed the case and the management of this patient's care with theResident/Fellow, if applicable. I also have reviewed and agree with theassessment and plan as stated above and agree with all of its relevantcomponents.David Mancuso Provider: ALAYNA GUTIERREZ [[id number]]Allergies As of Date: 04/02/2017 Noted Allergy ReactionDEMEROL (MEPERIDINE (PF)) 01/30/2014 10 - AnaphylaxisMORPHINE 01/30/2014 10 - AnaphylaxisDate Reviewed: 01/01/2017Reviewed by: Inge Munoz (Tech) - Fully AssessedReason for Visit: Post-Op Visit [1236] Cmt: s/p lid repair 12/23/16Primary Visit Diagnosis:Ptosis of both eyelids [H02.403]Order(s):IOP MEASUREMENT [0153695] Order #: [id number]: 1Prescriptions as of 04/02/2017 Sig: NEOMYCIN 3.5 [...] by mouth. Disc: Discontinued by PatientEncounter Number: [id number] Status:Closed by ALAYNA GUTIERREZ MD on 04/02/17 Normal [facility] PROGRESSon 04-01-2017 Protein mass conc HNO ID: [id number] thor: Alayna Montiel: (none)Author Type: PhysicianType: Progress [...] with all of its relevantcomponents.Alayna Gutierrez MD [facility] ANES Jaylen 12-23-2016 ANES POST HNO ID: [id number] thor: Harjeet Meadee: AnesthesiologyAuthor Type: PhysicianType: Anesthesia PostOpFiled: 12/23/2016 2:03 PMNote Text:POST ANESTHESIA EVALUATION NOTESERVICE DATE: 12/23/2016SERVICE TIME: 2:03 PMDOB: 1960Vitals: 12/23/1709Temp: 36.3 ?C (97.3 ?F) 36.7 ?C (98 ?F) 12/23/170905110BP: 154/91 154/79 145/75 159/79 040 [id number]: 102 104 106 104 040 [id number]: 18 16 16 16 040 [id number]: 99% 98% 97% 98%Validated Vital Signs: YesNo [...] 23, 2016 : 2:03 PM PAGER/CONTACT #: [facility] ANES PREOPon 12-23-2016 ANES PREOP HNO ID: [id number] thor: [place]: (none)Author Type: PhysicianType: Anesthesia PreOpFiled: 12/23/2016 9:14 AMNote Text:[facility] ANESTHESIOLOGY PREOPERATIVE ASSESSMENTPATIENT NAME: Oly HarrellMRN: [id number]: 1960Surgeon(s):Alayna GutierrezProcedure(s) (LRB):REPAIR BLEPHAROPTOSIS; (TARSO) LEVATOR RESECTION OR ADVANCEMENT, EXTERNALAPPROACH (Bilateral)Estimated body mass index is 44.81 kg/(m2) as calculated from thefollowing: Height as of 12/02/16: 157.5 cm (5' 2 ). Weight as of this encounter: 111.1 kg (245 lb).Most recent hematocrit and potassium results:Hematocrit 35.7 12/02/2016Potassium 4.0 12/02/2016Vitals: 318696ME: 154/91Pulse: 102Resp: 18Temp: 36.3 ?C (97.3 ?F)TempSrc: [...] LEFT EYENo date: COLONOSCOP W/ OR W/O BRSH SPEC Comment: ColonoscopyNo date: EGD W/O OR [...] information obtained within 48 hours ofSurgery/Procedure.SIGNATUR E: lE Alvarado, MDDATE: December 23, 2016TIME: 9:14 AM [facility] OPERATIVE NOon 12-23-2016 OPERATIVE NO HNO ID: [id number] thor: Alayna Montiel: OphthalmologyAuthor Type: PhysicianType: Operative ReportFiled: 12/23/2016 10:37 AMNote Text: OPERATIVE/PROCEDURE REPORTLOG ID: [id number]/Procedure Date: 12/23/2016Incision/Procedure Start Time: 9:50 AMIncision Close/Procedure End Time: 10:35 AMSurgeon(s)/Proceduralist(s ) and Mat Maker(s):Surgeon(s) and Role: * Alayna Gutierrez - PrimaryPre-Op/Pre-Procedure [...] HarrellDATE: December 23, 2016 : PAGER/CONTACT #: [facility] PT EDon 12-23-2016 PT ED HNO ID: [id number] thor: Patti (Rn) MELANIE Krishnanervice: NursingAuthor Type: Registered NurseType: Patient EducationFiled: 12/23/2016 11:09 AMNote Text:[facility] PATIENT EDUCATION NOTEREADINESS TO LEARNCOGNITIVE [...] RN: NoElectronically Signed By Patti Krishnan RN [facility] Vital Signs Date Time Vital Sign Value Performing Clinician Facility 09-10-2023 12:35-0400 Body height 154.9 cm Yarelis Wick MD Work Phone: [facility] 09-10-2023 12:35-0400 Body mass index (BMI) [Ratio] 42.89 kg/m2 Yarelis Wick MD Work Phone: [facility] 09-10-2023 12:35-0400 Body weight 102.97 kg Yarelis Wick MD Work Phone: [facility] 09-10-2023 12:35-0400 Diastolic blood pressure 72 mm[Hg] Yarelis Wick MD Work Phone: [facility] [facility] 09-10-2023 12:35-0400 Heart rate 70 /min Yarelis Wick MD Work Phone: [facility] 09-10-2023 12:35-0400 Systolic blood pressure 140 mm[Hg] Yarelis Wick MD Work Phone: [facility] 07-30-2023 10:06-0500 Body height 157.5 cm Christophe Irwin MD Work Phone: [facility] 07-30-2023 10:06-0500 Body mass index (BMI) [Ratio] 40.42 kg/m2 Christophe Irwin MD Work Phone: [facility] 07-30-2023 10:06-0500 Body temperature 97.5 [degF] Christophe Irwin MD Work Phone: [facility] 07-30-2023 10:06-0500 Body weight 100.25 kg Christophe Irwin MD Work Phone: [facility] 07-30-2023 10:06-0500 Diastolic blood pressure 78 mm[Hg] Christophe Irwin MD Work Phone: [facility] 07-30-2023 10:06-0500 Heart rate 94 /min Christophe Irwin MD Work Phone: [facility] 07-30-2023 10:06-0500 SaO2% (BldA) [Mass fraction] 99 % Christophe Irwin MD Work Phone: [facility] 07-30-2023 10:06-0500 Systolic blood pressure 140 mm[Hg] Christophe Irwin MD Work Phone: [facility] 05-06-2023 13:45-0500 Body height 160.66 cm Tondra Mapus Other [employer] Other 05-06-2023 13:45-0500 Body mass index (BMI) [Ratio] 39.68 kg/m2 Tondra Mapus Other [employer] Other 05-06-2023 13:45-0500 Body weight 102.42 kg Tondra Mapus Other [employer] Other 05-06-2023 13:45-0500 Diastolic blood pressure 77 mm[Hg] Tondra Mapus Other [employer] Other 05-06-2023 13:45-0500 Respiratory rate 18 /min Tondra Mapus Other [employer] Other 05-06-2023 13:45-0500 SaO2% (BldA) [Mass fraction] 100 % Tondra Mapus Other [employer] Other 05-06-2023 13:45-0500 Systolic blood pressure 187 mm[Hg] Tondra Mapus Other [employer] Other 04-14-2022 15:00-0400 Body height 160.66 cm [employer] Other [employer] Other 04-14-2022 15:00-0400 Body mass index (BMI) [Ratio] 39.92 kg/m2 Thar [employer] Other [employer] Other 04-14-2022 15:00-0400 Body temperature 97.3 [degF] [employer]ar [employer] Other [employer] Other 04-14-2022 15:00-0400 Body weight 103.06 kg Thar [employer] Other [employer] Other 04-14-2022 15:00-0400 Diastolic blood pressure 110 mm[Hg] [employer]ar [employer] Other [employer] Other 04-14-2022 15:00-0400 Respiratory rate 20 /min [employer]ar [employer] Other [employer] Other 04-14-2022 15:00-0400 SaO2% (BldA) [Mass fraction] 98 % Fadumo Chau Other [employer] Other 04-14-2022 15:00-0400 Systolic blood pressure 170 mm[Hg] Fadumo Chau Other [employer] Other 10-15-2021 17:15-0400 Body height 160.66 cm Tondra Mapus Other [employer] Other 10-15-2021 17:15-0400 Body mass index (BMI) [Ratio] 40.59 kg/m2 Tondra Mapus Other [employer] Other 10-15-2021 17:15-0400 Body weight 104.78 kg Tondra Mapus Other [employer] Other 10-15-2021 17:15-0400 Diastolic blood pressure 84 mm[Hg] Tondra Mapus Other [employer] Other 10-15-2021 17:15-0400 Respiratory rate 20 /min Tondra Mapus Other [employer] Other 10-15-2021 17:15-0400 SaO2% (BldA) [Mass fraction] 95 % Tondra Mapus Other [employer] Other 10-15-2021 17:15-0400 Systolic blood pressure 147 mm[Hg] Tondra Mapus Other [employer] Other 07-17-2021 15:15-0500 Body height 160.66 cm Tondra Mapus Other [employer] Other 07-17-2021 15:15-0500 Body mass index (BMI) [Ratio] 41.12 kg/m2 Tondra Mapus Other [employer] Other 07-17-2021 15:15-0500 Body weight 106.14 kg Tondra Mapus Other [employer] Other 07-17-2021 15:15-0500 Diastolic blood pressure 84 mm[Hg] Tondra Mapus Other [employer] Other 07-17-2021 15:15-0500 Respiratory rate 20 /min Tondra Mapus Other [employer] Other 07-17-2021 15:15-0500 SaO2% (BldA) [Mass fraction] 97 % Tondra Mapus Other [employer] Other 07-17-2021 15:15-0500 Systolic blood pressure 135 mm[Hg] Tondra Mapus Other [employer] Other 09-07-2019 12:00-0400 Pulse Oximetry 97 % [facility] [place] 09-07-2019 11:45-0400 Body Temperature 97.5 [degF] [facility]ir [facility] [place] 09-07-2019 11:45-0400 BP Diastolic 82 mm[Hg] [facility] [place] 09-07-2019 11:45-0400 BP Systolic 150 mm[Hg] [facility] [place] 09-07-2019 11:45-0400 Pulse (Heart Rate) 94 /min [facility] [place] 09-07-2019 11:45-0400 Respiratory Rate 16 /min [facility] [place] 09-07-2019 08:38-0400 BMI (Body Mass Index) 45.54 kg/m2 [facility] 09-07-2019 08:38-0400 Body weight 112.95 kg Martir Bang [facility] [place] 09-07-2019 08:38-0400 Height 157.5 cm Martir Bang [facility] [place] Encounters Encounter Date Encounter Type Care Provider Facility Start: 09-17-2023 Telephone encounter [facility] Comment on above: Request for Surgical Clearance Start: 09-13-2023 Telephone encounter Tonya Mustafa [facility] Comment on above: [employer] Start: 09-10-2023 End: 09-10-2023 ambulatory YARELIS WICK [facility] Start: 09-10-2023 End: 09-10-2023 Office outpatient visit 25 minutes Yarelis Wick MD Work Phone: [facility] Comment on above: Sequelae, post-strok e (Primary Dx); Seizure ([facility]); Hypomagnesemia; Colitis; Abnormal brain MRI; Poorly controlled diabetes mellitus ([facility]); CKD stage 3 secondary to diabetes ([facility]); Type 2 diabetes mellitus with complication, with long-term current use of insulin ([facility]); Gait instability; PBA (pseudobulbar affect) Start: 07-30-2023 Bamboo flowsheet Christophe Irwin MD [...] (CMS/HCC) Start: 07-26-2023 End: 07-27-2023 ambulatory ANYI Jameson [facility] Start: 07-23-2023 End: 07-27-2023 ambulatory PATRICIA HAWKINS [facility] Start: 07-23-2023 End: 07-27-2023 ambulatory MILLIS Gisell [facility] Start: 07-23-2023 End: 07-27-2023 [facility]: 07-23-2023 End: 07-26-2023 Evaluation and management of [facility] Start: 07-08-2023 End: 07-08-2023 ambulatory Tondra Mapus Other [employer] Other Start: 07-08-2023 Telephone encounter Tondra Mapus [facility] Start: 05-18-2023 End: 05-18-2023 ambulatory Tondra Mapus Other [employer] Other Start: 05-18-2023 Telephone encounter Tondra Mapus [facility] End[facility] Start: 05-06-2023 (DM) Diabetes Tondra Mapus [facility] Start: 05-06-2023 End: 05-07-2023 ambulatory Tondra K Mapus [employer] Other Start: 04-29-2023 End: 04-29-2023 ambulatory Tondra Mapus Other [employer] Other Start: 04-29-2023 Telephone encounter Tondra Mapus [facility] Start: 02-24-2023 End: 02-24-2023 ambulatory Tondra Mapus Other [employer] Other Start: 02-24-2023 Telephone encounter Tondra Mapus [facility] Start: 11-09-2022 ambulatory MONET MATA Faci lity:H1 Start: 11-05-2022 End: 11-05-2022 ambulatory Tondra Mapus Other [employer] Other Start: 11-05-2022 Telephone encounter Tondra Mapus Sudhakar [facility] Start: 10-30-2022 End: 10-30-2022 ambulatory Tondra Mapus Other [employer] Other Start: 10-30-2022 Telephone encounter Tondra Mapus [facility] Start: 10-12-2022 End: 10-13-[address] CHRISTOPHE IRWIN Facility:H1 Start: 09-14-2022 End: 09-15-2022 ambulatory ISABELLA LETICIA Facility:H1 Start: 08-31-2022 End: 09-01-2022 ambulatory ISABELLA COSTAEN Facility:H1 Start: 08-27-2022 End: 08-27-2022 ambulatory Tondra Mapus Other [employer] Other Start: 08-27-2022 Telephone encounter Tondra Mapus Sudhakar [facility] Start: 08-18-2022 End: 08-19-[address] CHRISTOPHE IRWIN Facility:H1 Start: 08-10-2022 End: 08-11-[address] CHRISTOPHE IRWIN Facility:H1 Start: 07-20-2022 End: 07-21-[address] CHRISTOPHE IRWIN Facility:H1 Start: 06-26-2022 End: 06-27-[address] CHRISTOPHE IRWIN Facility:H1 Start: 06-18-2022 End: 06-18-2022 ambulatory Tondra Mapus Other [employer] Other Start: 06-18-2022 Telephone encounter Tondra Rogerus [facility] Start: 06-15-2022 End: 06-15-2022 ambulatory Tondra Rogerus Other [employer] Other Start: 06-15-2022 Telephone encounter Tondra Rogerus [facility] Start: 06-09-2022 End: 06-10-2022 ambulatory ISABELLA KELLY Facility:H1 Start: 05-11-2022 End: 05-11-2022 ambulatory UNKNOWN PROVIDER Facility:[facility] Start: 05-07-2022 End: 05-07-2022 ambulatory Tondra Rogerus Other [employer] Other Start: 05-07-2022 Telephone encounter Tondra Rogerus [facility] Start: 04-15-2022 End: 04-15-2022 ambulatory Aziz Baktracys Other [employer] Other Start: 04-15-2022 Telephone encounter Aziz Bakhous [facility] Start: 04-14-2022 End: 04-14-2022 ambulatory Aziz Bakhous Other [employer] Other Start: 04-14-2022 Office outpatient ne w 30 minutes Aziz Bakhous [facility] Start: 04-01-2022 End: 04-02-[address] AMANDA HOSKINS Facility:H1 Start: 02-18-2022 End: 02-19-[address] AMANDA HOSKINS Facility:[facility]1 Start: 01-01-2022 End: 01-01-2022 ambulatory Tondra Rogerus Other [employer] Other Start: 01-01-2022 Telephone encounter Tondra Rodney [facility] Start: 10-15-2021 (DM) Diabetes Tondra Rogerus [facility] Start: 10-15-2021 End: 10-15-2021 ambulatory Tondra Mapus Other [employer] Other Start: 10-15-2021 Telephone encounter Tondra Mapus [facility] Start: 10-07-2021 End: 10-07-2021 ambulatory Tondra Mapus Other [employer] Other Start: 10-07-2021 Telephone encounter Tondra Mapus [facility] Start: 08-25-2021 End: 08-25-2021 ambulatory Tondra Mapus Other [employer] Other Start: 08-25-2021 Telephone encounter Tondra Mapus [facility] Start: 07-17-2021 (DM) Diabetes Tondra Mapus [facility] Start: 07-17-2021 End: 07-17-2021 ambulatory Tondra Mapus Other [employer] Other Start: 09-07-2019 End: 09-07-2019 Patient encounter procedure MARTIR BANG [facility] Start: 09-07-2019 End: 09-07-2019 Subsequent hospital visit by physician Martir Bang Work Phone: [facility] Start: 01-21-2018 End: 01-24-2018 Patient encounter BRITTANY SPARKS [facility] Start: 11-01-2017 End: 11-02-2017 Patient encounter MARLACarroll NEW [facility] Start: 10-04-2017 End: 10-05-2017 Patient encounter MARLA NEW [facility] Start: 08-30-2017 End: 09-02-2017 Patient encounter MARLA NEW [facility] Start: 04-02-2017 End: 04-02-2017 Patient encounter ALAYNA GUTIERREZ [facility] Start: 12-23-2016 End: 12-23-2016 Ambulatory [facility] Procedures Date Procedure Procedure Detail Performing Clinician Start: 09-10-2023 Follow-up visit Follow-up EHAD AF REEN Start: 09-10-2023 Adult depression scr eening assessment Tonya Mustafa Start: 05-13-2023 Microalbumin [Mass/v olume] in Urine by Test strip Tonya Ramsey Start: 09-07-2019 BEDREST MARTIR EDWARDS SEN Start: 09-07-2019 Continuous pulse oximetry MARTIR BANG Start: 09-07-2019 ENCOURAGE DEEP BREAT NOLVIA AND COUGHING MARTIR BANG Start: 09-07-2019 INITIATE OXYGEN THER APY PROTOCOL MARTIR BANG Start: 09-07-2019 NOTIFY PHYSICIAN (SPECIFY) MARTIR MACKLSEN Start: 09-07-2019 NURSING COMMUNICATION P TANVIR BANG [...] MARTIR BANG Start: 09-07-2019 VITAL SIGNS MARTIR EDWARDS SEN Start: 09-07-2019 Ecg routine ecg w/le ast 12 lds w/i&r MARTIR BANG Start: 09-07-2019 CREATININE W/GFR POI NT OF CARE Martir Bang Work Phone: Start: 09-07-2019 Gluc bld gluc mntr d ev cleared fda spec home use Martir Bang Work Phone: Start: 09-07-2019 Potassium [Moles/Vol] P tanvir Bang Work Phone: Start: 05-10-2018 Mammography Christophe mackey MD Work Phone: Start: 03-17-2018 Colonoscopy Tonya begum Plan of Treatment Date Care Activity Detail Author Start: 09-09-2024 Adult BMI Screening Adult BMI Screen ing [facility] Start: 09-09-2024 Depression Screening Depression Scre ening [facility] Start: 09-09-2024 Tobacco Screening Tobacco Screening [facility] Start: 05-13-2024 Urine screening for protein Urine Microalbumin [facility] Start: 02-25-2024 End: 02-25-2024 Patient encounter procedure 02/25/2024 1:00 PM EDT [facility] [address] [place] [address] [place] [phone] Yarelis Wick MD [address] [place] [address], [address] [phone] [facility] Start: 10-29-2023 End: 10-29-2023 Patient encounter procedure 10/29/2023 10:15 AM EDT Office Visit [facility] [address] [place] [phone] Christophe Irwin MD [address] [place] [phone] [facility] Start: 07-30-2023 End: 07-30-2023 Patient encounter procedure 07/30/2023 10:15 AM EST Office Visit [facility] [address] [place] [phone] Christophe Irwin MD [address] [place] [phone] Arrived [facility] Comment on above: Arrived Start: 02-26-2023 Influenza vaccination Influenza Vacc ine (#1) [facility] Start: 01-29-2023 Hemoglobin A1c measurement Diabetes: Hemoglobin A1C [facility] Start: 12-19-2022 Adult BMI Follow Up Plan Adult BMI Follow Up Plan [facility] Start: 02-25-2022 DTaP,Tdap and Td Vaccines (2 - Td or Tdap) DTaP,Tdap and Td Vaccines (2 - Td or Tdap) [facility] Start: 03-17-2021 Screening for malign ant neoplasm of colon Colonoscopy [facility] Start: 05-10-2019 Screening for malign ant neoplasm of breast Mammogram [facility] Start: 05-06-2019 Administration of varicella zoster vaccine Zoster (Shingles) Vaccine (2 of 2) [facility] Start: 02-26-2019 Influenza vaccination Flu vaccine (# 1) [place], [place] Start: 1992 Screening for malign ant neoplasm of cervix [facility] Start: 10-27-1983 Screening for malign ant neoplasm of cervix Pap Smear [facility] Start: 1980 Diabetic foot examination Diabetic Foot Exam [facility] Start: 1972 Glaucoma screening Diabetes: R etinopathy Screening [facility] Start: 1962 Creatinine monitoring Creatinine mon itoring [place], [place] Start: 1962 Glaucoma screening Diabetic Op hthalmology Exam [facility] Start: 1962 Medicare Annual Well ness (AWV) Medicare Annual Wellness (AWV) [facility] Start: 1962 Potassium monitoring Potassium monit oring [place], [place] Start: 1962 Screening for malign ant neoplasm of colon [facility] Start: 1962 Tobacco Counseling Tobacco Counselin g [facility] End: 09-07-2019 BUN & Creatinine BUN & Creatinine Lab STAT One Time for 1 Occurrences starting 09/07/2019 until 09/07/2019 [place] Comment on above: One Time for 1 Occur rences starting 09/07/2019 until 09/07/2019 EKG 12 Lead EKG 12 Lead ECG STAT 09/07/2019 7:38 AM EDT [place] End: 09-07-2019 Electrolyte Panel Electrolyte Panel Lab STAT One Time for 1 Occurrences starting 09/07/2019 until 09/07/2019 [place] Comment on above: One Time for 1 Occur rences starting 09/07/2019 until 09/07/2019 Initiate Oxygen Ther apy Protocol Initiate Oxygen Therapy Protocol Respiratory Care Routine Daily until discontinued starting 09/07/2019 [place] Comment on above: Daily until disconti nued starting 09/07/2019 Phase I & II - meter ed glucose Phase I & II - metered glucose Point of Care Testing Routine As Needed until discontinued starting 09/07/2019 [place] Comment on above: As Needed until disc ontinued starting 09/07/2019 End: 09-07-2019 POCT Glucose [place] Comment on above: One Time for 1 Occur rences starting 09/07/2019 until 09/07/2019 End: 09-07-2019 Pulse Oximetry Spot Check Pulse Oximetry Spot Check Respiratory Care Routine One Time for 1 Occurrences starting 09/07/2019 until 09/07/2019 [place] Comment on above: One Time for 1 Occur rences starting 09/07/2019 until 09/07/2019 End: 09-07-2019 Urine , POCT Urine , POCT Point of Care Testing Routine One Time for 1 Occurrences starting 09/07/2019 until 09/07/2019 [place] Comment on above: One Time for 1 Occur rences starting 09/07/2019 until 09/07/2019 Immunizations Immunization Date Immunization Notes Care Provider Katie flanagan 11-19-2020 COVID-19, mRNA, LNP- S, PF, 100mcg/0.5mL Dose [facility] 05-15-2020 influenza, injectabl e, quadrivalent, preservative free [facility] 05-15-2020 influenza virus vacc ine, unspecified formulation Christophe Irwin MD Work Phone: [facility] 03-28-2019 pneumococcal conjuga te vaccine, 13 valent [facility] 03-11-2019 Seasonal, quadrivale nt, recombinant, injectable influenza vaccine, preservative free [facility] 03-11-2019 zoster vaccine recombinant [facility] 03-11-2019 zoster vaccine, unspecified formulation [facility] 04-01-2015 influenza, seasonal, injectable, preservative free [facility] 04-01-2015 pneumococcal polysaccharide vaccine, 23 valent [facility] 02-26-2012 tetanus toxoid, redu jose diphtheria toxoid, and acellular pertussis vaccine, adsorbed [facility] Payers Date Payer Category Payer Medicare [facility] MEDICARE [facility] [employer] DUAL COMPLETE xxxxxxxxx 2019-Present xxxxxxxxx [id number] 2019 Medicare [id number] 2018 Self-pay [id number] 2017 Medicare [id number] 2016 Medicaid [id number] 2014 Medicaid MEDICAID [facility] DEPT OF JOB xxxxxxxxxxxx 2014-Present [phone] [address] [place] [address] xxxxxxxxxxxx [id number] 1962 Unknown [id number] 2.16.840.1.621865.3.579.2.1 75 1962 Unknown [id number] 2.16.840.1.252738.3.579.2.7 32 1962 Unknown [id number] 2.16.840.1.392147.3.579.2.5 93 1962 Unknown [id number] 2.16.840.1.839624.3.579.2.5 93 1962 Unknown [id number] 2.16.840.1.809712.3.579.2.5 93 1962 Unknown [id number] 2.16.840.1.506297.3.579.2.5 93 1962 Unknown [id number] 2.16.840.1.063494.3.579.2.5 93 1962 Unknown [id number] 2.16.840.1.271119.3.579.2.5 93 1962 Unknown [id number] 2.16.840.1.711304.3.579.2.5 93 1962 Unknown [id number] 2.16.840.1.572151.3.579.2.5 93 1962 Unknown [id number] 2.16.840.1.419812.3.579.2.5 93 1962 Unknown [id number] 2.16.840.1.479342.3.579.2.5 93 1962 Unknown [id number] 2.16.840.1.120107.3.579.2.5 93 1962 Unknown [id number] 2.16.840.1.901288.3.579.2.1 259 1962 Unknown [id number] 2.16.840.1.796392.3.579.2.1 286 1962 Unknown [id number] 2.16.840.1.784043.3.579.2.1 286 1962 Unknown [id number] 2.16.840.1.849648.3.579.2.1 286 1962 Unknown [id number] 2.16.840.1.205014.3.579.2.1 286 1962 Unknown [id number] 2.16.840.1.043193.3.579.2.1 286 1962 Unknown [id number] 2.16.840.1.956192.3.579.2.1 286 1962 Unknown [id number] 2.16.840.1.301565.3.579.2.1 286 1962 Unknown [id number] 2.16.840.1.218703.3.579.2.1 286 1959 Medicaid [id number] Medicare Medicare [id number] Unknown [id number] 2.16.840.1.161507.3.579.2.5 31 Social History Date Type Detail Facility Start: 09-07-2019 Tobacco smoking stat [facility] Former smoker [place] End: 09-05-1979 History of tobacco use Current smoker [place] End: 09-05-1979 History of tobacco use Cigarette Smoker [place] Start: 09-07-2019 End: 07-23-2023 Cigarettes smoked current (pack per day) - Reported [facility] [employer] [facility] Start: 09-07-2019 End: 07-30-2023 Alcohol intake Lifetime non-drinker (finding) [place] Start: 09-05-2019 History SDOH Alcohol Frequency 1 [place] Start: 1960 Sex Assigned At Not on file [place] Start: 07-09-2023 End: 07-23-2023 Sex Assigned At [facility] Start: 12-14-2022 Tobacco smoking stat [facility] Never smoked tobacco [facility] Start: 12-14-2022 End: 05-04-2023 Tobacco use and exposure Smokeless tobacco non-user [facility] Start: 1960 Sex Assigned At Female F [facility] Start: 05-04-2023 Tobacco smoking stat [facility] Smokes tobacco daily [facility] [employer] [facility] Start: 09-10-2023 End: 09-23-2023 Alcohol intake [facility] Has the [employer], or [employer] threatened to shut off services in your home in past 12Mo No [facility] [employer] [facility] Are you now , , , , never or living with a partner? [facility] How often to you hav e a drink containing alcohol? Never [facility] [employer] [facility] How many standard drinks containing alcohol do you have on a typical day? Patient does not drink [facility] Do you feel stress - tense, restless, nervous, or anxious, or unable to sleep at night because your mind is troubled all the time - these days [OSQ] Not at all [facility] Medical Equipment Procedure Code Equipment Code Equipment Origin al Text Equipment Identifier Dates [id number], [id number] Star t: 01-16-2018 Goals Date Patient Goal Desired Activity /State Personal health goal Comment on above: Formatting of this n ote might be different from the original. Evaluation of progress towards goal: To discharge safely home with my spouse. Personal health goal Comment on above: Formatting of this n ote might be different from the original. Evaluation of progress towards goal: Pt will DC home self care. Clinical Notes 07-17-2021 to 09-17-2023 Telephone Encounter - Marcela Schafer CMA - 09/17/2023 10:47 AM EDTTelephone Encounter - Taty Vieyra - 09/17/2023 10:47 AM EDTTelephone Encounter - Haley Howell RN - 09/17/2023 10:47 AM EDT Note Date & Type Note Facility 09-17-2023 Miscellaneous Notes Received a request for surgical clearance from [facility] in [place]. Office is requesting most recent office visit note and any medication instructions be faxed over to them @ [phone] by 09/23/23. Request and H&P scanned into the patient media for review. Please complete the patients last OV note and staff will fax it over along with any medication instructions you may have. Thanks. [facility] in [place]. Office called in asking if we received the surgical clearance. [employer] informed them yes. Aleksandra would like to know when they would get the form back. In below encounter is was stated they needed the form back by 09 23 23 Please advise Aleksandra [phone] Physician's surgical clearance letter was printed and faxed to [phone], along with last office visit notes. Letter corrected to state stop aspirin 24 hours prior to procedure. Corrected letter scanned into chart. Fax confirmation received. RN left voicemail for slab polisher, Aleksandra, to inform letter was faxed. Clinic number provided for call back with any questions. documented in this encounter [facility] 09-17-2023 Telephone encounter Note Received a request for surgical clearance from [facility] in [place]. Office is requesting most recent office visit note and any medication instructions be faxed over to them @ [phone] by 09/23/23. Request and H&P scanned into the patient media for review. Please complete the patients last OV note and staff will fax it over along with any medication instructions you may have. Thanks. [facility] 09-17-2023 Telephone encounter Note [facility] in [place]. Office called in asking if we received the surgical clearance. Coil Former informed them yes. Aleksandra would like to know when they would get the form back. In below encounter is was stated they needed the form back by 09 23 23 Please advise Aleksandra [phone] ext [phone] [facility] 09-17-2023 Telephone encounter Note Physician's surgical clearance letter was printed and faxed to [phone], along with last office visit notes. Letter corrected to state stop aspirin 24 hours prior to procedure. Corrected letter scanned into chart. Fax confirmation received. MARIA ESTHER left voicemail for slab polisher, Aleksandra, to inform letter was faxed. Clinic number provided for call back with any questions. [facility] 09-13-2023 Miscellaneous Notes Received call today 09/13/23 3:02 from Mounika [facility] who was calling to let Dr. Wick's staff know that she is sending prior auth request for Nudexta to our clinic fax# which I provided to her. PA approved: [id number]. NUEDEXTA CAP 20-10MG is approved through 06/27/2024. documented in this encounter [facility] 09-13-2023 Telephone encounter Note Received call today 09/13/23 3:02 from [facility] who was calling to let Dr. Wick's staff know that she is sending prior auth request for Nudexta to our clinic fax# which I provided to her. [facility]23 Telephone encounter Note PA approved: [id number]. NUEDEXTA CAP 20-10MG is approved through 06/27/2024. [facility] 09-10-2023 History of Presen t illness Narrative [facility] FOLLOW UP NOTE Reason for visit: Hospital Follow up, post-stroke(06/2023). Last clinic visit: 07/14/2022 HPI: Oly Harrell is a 62 y.o. female who presents for follow up of lacunar stroke. April 2022 She has residual symptoms of balance disturbance, gait disturbance, and right upper extremity heaviness and incoordination . She denies bilateral facial droop, cognitive impairment, inability to speak, involuntary movements of Extremities, loss of vision bilaterally, seizures, slurred speech, swallowing difficulty, syncope, tremor of Extremities and weakness of Extremities . Overall she feels her condition is stable. Stroke risk factors include: diabetes mellitus, hyperlipidemia, hypertension and Morbid obesity . She denies aphasia, confusion, difficulty swallowing, difficulty understanding, dizziness, drowsiness, dysarthria, dysphagia, expressive aphasia, extremity weakness , facial droop, global aphasia, horizontal diplopia, slurred speech, vertical diplopia, vertigo and word finding difficulties. Hospital Course at [facility] 07/23/23-07/25/23: ... 62/F with a past medical history of hypertension, hyperlipidemia, DM II, seizures, history of right posterior limb of internal capsule lacunar infarct 05/19, who reports that approximately 1 week ago she noted right hand weakness and was dropping objects. She eventually presented to the emergency room for further evaluation, as symptoms had become persistent. Non contrast CT brain on arrival was negative for acute process. CTA head and carotids was negative for LVO and hemodynamic significant stenosis. She underwent MRI brain imaging that revealed left periventricular stroke. She was well outside the time window for iv thrombolytics. Telestroke was consulted for further recommendations. Patient has previously followed up with the Stroke Clinic for history of right sided lacunar infarct April 2022, seizure-like activity. Has had extensive workup for seizure-disorder in the past, as detailed in the previous clinic notes. Her hemoglobin A1c was 7.6%, LDL 190 mg/dL. CTA head was unremarkable. CTA neck showed evidence of proximal stenosis 55% left ICA, 35% in right ICA. Echocardiogram was unremarkable. About a year ago when she saw me last in clinic, it seems her underlying vascular risk factors were pretty well controlled. However over the last few months she has let things go. During the hospitalization she was started on dual antiplatelet therapy, high-dose statin therapy for secondary prevention. She was eventually discharged home in a stable condition. Reports gradual improvement in right-sided weakness and incoordination. Is currently ambulating without any assistive devices. Since the recent CVA, patient reports severe emotional lability, tends to become emotional and cries very easily, with minimal stress. Is fairly independent with ADLs and IADLs at this time. Has been compliant with the medications since the discharge. Interval history(09/10/23): - of note patient was admitted at [facility] in October 2022 with altered mentation. 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 Subsequent CSF testing did not show any infective organism, moderately elevated CSF protein, 0 WBCs. Patient was on EEG monitoring during the hospitalization, which showed evidence of right hemispheric dysfunction and mild diffuse encephalopathy. In The absence of other etiology for seizure-like episodes/AMS patient was started on seizure medications for prophylaxis. Patient currently on lacosamide 100 mg b.i.d., Keppra 750 mg b.i.d.. Has not had breakthrough seizures or seizure-like activity over the last 6 months. - reports having longstanding history diabetic peripheral polyneuropathy, diabetic retinopathy and nephropathy. The following portions of the patient's history were reviewed and updated as appropriate: allergies, current medications, past family history, past medical history, past social history, past surgical history, problem list and medication reconciliation was completed including current medication and post discharge medication. Review of Systems 14 systems were reviewed and negative except those mentioned in HPI . Past Medical History Past Medical History: Diagnosis Date Chronic kidney disease Diabetes ([facility]) Diabetes mellitus ([facility]) Disease of thyroid gland GERD (gastroesophageal reflux disease) Glaucoma Hyperlipemia Hypertension Incontinence Obesity Seizures ([facility]) Stroke ([facility]) Urinary urgency Past Surgical History Past Surgical History: Procedure Laterality Date APPENDECTOMY AUGMENTATION VERTEBRAL KYPHOPLASTY SPINE L1/ BIOPSY L1 N/A 12/02/2020 Performed by Bridger Vizcaino Jr., MD at [facility] BACK SURGERY BREAST BIOPSY Right 1989 BENIGN BREAST BIOPSY Right BENIGN BREAST BIOPSY BREAST SURGERY biopsy CATARACT EXTRACTION Bilateral CHOLECYSTECTOMY COLON SURGERY COLONOSCOPY N/A 03/17/2018 Performed by Santiago Cosby DO at [facility] CYSTOSCOPY EGD Left Lateral 10/17/2020 Performed by Satniago Cosby DO at [facility] EGD N/A 03/17/2018 Performed by Santiago Cosby DO at [facility] ESOPHAGOGASTRODUODENOSCOPY EYE SURGERY FOOT SURGERY Right FOOT SURGERY Left HYSTERECTOMY 1985 COMPLETE HYSTERECTOMY OOPHORECTOMY Bilateral 1985 OTHER SURGICAL HISTORY exploratory stomach Family History The patient has a family history of Family History Adopted: Yes Family history unknown: Yes Social History Social History Socioeconomic History Marital status: Spouse name: Not on file Number of children: Not on file Years of education: Not on file Highest education level: Not on file Occupational History Not on file Tobacco Use Smoking status: Every Day Types: Cigarettes Smokeless tobacco: Never Vaping Use Vaping Use: Never used Substance and Sexual Activity Alcohol use: Not Currently Drug use: Not Currently Sexual activity: Not Currently control/protection: Surgical Other Topics Concern Not on file Social History Narrative Merged History Encounter Social Determinants of Health Financial Resource Strain: Low Risk (07/23/2023) Overall Financial Resource Strain (CARDIA) Difficulty of Paying Living Expenses: Not hard at all Food Insecurity: No Food Insecurity (09/10/2023) Hunger Screening Food Insecurity - Worry: Never True Food Insecurity - Inability: Never True Transportation Needs: No Transportation Needs (07/23/2023) PRAPARE - Transportation Lack of Transportation (Medical): No Lack of Transportation (Non-Medical): No Physical Activity: Inactive (07/23/2023) Exercise Vital Sign Days of Exercise per Week: 0 days Minutes of Exercise per Session: 0 min Stress: No Stress Concern Present (07/23/2023) [facility] [employer] [facility] - Occupational Stress Questionnaire Feeling of Stress : Not at all Social Connections: Moderately Integrated (07/23/2023) Social Connection and Isolation Panel [NHANES] Frequency of Communication with Friends and Family: Three times a week Frequency of Social Gatherings with Friends and Family: Three times a week Attends Shinto Services: More than 4 times per year Active Member of Clubs or Organizations: No Attends Club or Organization Meetings: Never Marital Status: Interpersonal Safety: Not At Risk (07/23/2023) Humiliation, Afraid, Rape, and Kick questionnaire Fear of Current or Ex-Partner: No Emotionally Abused: No Physically Abused: No Sexually Abused: No Housing Instability: Low Risk (07/23/2023) Housing Instability Housing Instability: No Current Medications: Current Outpatient Medications: amLODIPine (NORVASC) 5 mg tablet, Take 1 tablet (5 mg total) by mouth in the morning and 1 tablet (5 mg total) before bedtime., Disp: 60 tablet, Rfl: 2 ascorbic acid, vitamin C, 250 mg tablet,chewable, Chew 1 tablet and swallow 2 (two) times a day., Disp: , Rfl: aspirin 81 mg, Take 1 tablet (81 mg total) by mouth in the morning., Disp: 30 tablet, Rfl: 1 atorvastatin (LIPITOR) 40 mg tablet, Take 1 tablet (40 mg total) by mouth nightly., Disp: 30 tablet, Rfl: 1 BD ULTRA-FINE MINI PEN NEEDLE 31 gauge x 3/16 needle, , Disp: , Rfl: carvediloL (COREG) 25 mg tablet, Take 1 tablet (25 mg total) by mouth in the morning and 1 tablet (25 mg total) in the evening. Take with meals., Disp: 60 tablet, Rfl: 2 cholecalciferol, vitamin D3, (VITAMIN D3) 5,000 units tablet, Take 1 tablet (5,000 Units total) by mouth in the morning., Disp: 90 tablet, Rfl: 3 clopidogreL (PLAVIX) 75 mg tablet, Take 1 tablet (75 mg total) by mouth in the morning., Disp: 30 tablet, Rfl: 1 cyanocobalamin 1000 MCG tablet, Take 1 tablet (1,000 mcg total) by mouth in the morning., Disp: 30 tablet, Rfl: 6 dapagliflozin (FARXIGA) 10 mg tablet, Take 1 tablet (10 mg total) by mouth in the morning., Disp: , Rfl: fluticasone propionate (FLONASE) 50 mcg/actuation nasal spray, Administer 1 spray into each nostril as needed., Disp: , Rfl: FREESTYLE PRECISION ANA STRIPS strip, , Disp: , Rfl: furosemide (LASIX) 20 mg tablet, Take 1 tablet (20 mg total) by mouth daily., Disp: , Rfl: hydrALAZINE (APRESOLINE) 25 mg tablet, Take 1 tablet (25 mg total) by mouth every 8 (eight) hours., Disp: 90 tablet, Rfl: 2 insulin glargine (LANTUS, BASAGLAR) 100 unit/mL (3 mL) insulin pen, Inject 40 Units under the skin in the morning and 40 Units before bedtime., Disp: , Rfl: insulin lispro (HumaLOG) 100 unit/mL injection, Inject 0.5 mL (50 Units total) under the skin in the morning and 0.5 mL (50 Units total) at noon and 0.5 mL (50 Units total) in the evening. Inject before meals. Give only max dose of 50 units daily, adjust accordingly with sliding scale.., Disp: , Rfl: lacosamide (VIMPAT) 100 mg tablet, Take 1 tablet (100 mg total) by mouth in the morning and 1 tablet (100 mg total) before bedtime., Disp: 60 tablet, Rfl: 3 levETIRAcetam (KEPPRA) 750 mg tablet, Take 1 tablet (750 mg total) by mouth in the morning and 1 tablet (750 mg total) before bedtime., Disp: 180 tablet, Rfl: 2 metoprolol tartrate (LOPRESSOR) 50 mg tablet, Take 1 tablet (50 mg total) by mouth in the morning., Disp: , Rfl: PARoxetine (PAXIL) 40 mg tablet, Take 1 tablet (40 mg total) by mouth every morning., Disp: , Rfl: thiamine HCl (VITAMIN B-1) 100 mg tablet, Take 1 tablet (100 mg total) by mouth in the morning., Disp: 30 tablet, Rfl: 2 zolpidem (AMBIEN) 10 mg tablet, Take 1 tablet (10 mg total) by mouth nightly as needed., Disp: , Rfl: Allergies: Allergies Allergen Reactions Meperidine (Pf) Anaphylaxis Demerol [Meperidine] Morphine Sertraline Hcl Hives Tylenol-Codeine #3 [Acetaminophen-Codeine] Abdominal Pain Tylenol-Codeine #3 [Acetaminophen-Codeine] Last Neuro Imaging: Refer to HPI Objective: BP 140/72 Pulse 70 Ht 154.9 cm (5' 1 ) Wt 103 kg (227 lb) BMI 42.89 kg/m Physical Exam: Neurology Physical Exam NIH Stroke Scale 1a Level of consciousness: 0=alert; keenly responsive 1b. LOC questions: 0=Performs both tasks correctly 1c. LOC commands: 0=Performs both tasks correctly 2. Best Gaze: 0=normal 3. Visual: 0=No visual loss 4. Facial Palsy: 0=Normal symmetric movement 5a. Motor left arm: 0=No drift, limb holds 90 (or 45) degrees for full 10 seconds 5b. Motor right arm: 0=No drift, limb holds 90 (or 45) degrees for full 10 seconds 6a. motor left le=No drift, limb holds 90 (or 45) degrees for full 10 seconds 6b Motor right le=No drift, limb holds 90 (or 45) degrees for full 10 seconds 7. Limb Ataxia: 1= mild dysmetria in right upper extremity 8. Sensory: 0=Normal; no sensory loss 9. Best Language: 0=No aphasia, normal 10. Dysarthria: 0=Normal 11. Extinction and Inattention: 0=No abnormality 12. 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 ([facility]) Morbid obesity ([facility]) CKD stage 3 secondary to diabetes ([facility]) Hypomagnesemia Non-intractable vomiting Abdominal pain Coffee ground emesis Hypertension Hyperlipemia Glaucoma GERD (gastroesophageal reflux disease) Disease of thyroid gland Urinary urgency Closed fracture of first lumbar vertebra ([facility]) Stroke ([facility]) Intractable back pain Pathological fracture of lumbar vertebra due to secondary osteoporosis ([facility]) Age-related osteoporosis with current pathological fracture Vitamin D deficiency Altered mental status Seizures ([facility]) Seizure-like activity ([facility]) Mental status change resolved Recurrent episodes of unresponsiveness Seizure ([facility]) Hypokalemia Right thalamic infarction ([facility]) Poorly controlled diabetes mellitus ([facility]) Sequelae, post-stroke Gait instability Right foot drop Hyperlipidemia Asymptomatic bilateral carotid artery stenosis Delirium Colitis Sepsis ([facility]) Left-sided weakness History of stroke History of seizure Diarrhea Hypertensive encephalopathy Abnormal brain MRI RUE weakness CVA (cerebral vascular accident) ([facility]) Stroke ([facility]) Status post, lacunar stroke--> left periventricular ischemic lacunar stroke, secondary to small-vessel disease(poorly controlled hypertension, diabetes mellitus type 2, hyperlipidemia). Plan: Continue aspirin and rosuvastatin for secondary prevention. Plavix has been discontinued. BP goal less than 130/80, hemoglobin A1c less than 6.5%, LDL less than 70 mg/dL. Patient has been encouraged to check her blood pressure regularly and keep a log. Continue working with PCP regarding optimization of aforementioned vascular risk factors. Encourage weight loss strategies, adapting a healthier diet. Recommend PT/OT for gait instability which seems to be multifactorial in etiology: from musculoskeletal disorders, obese body habitus, recent CVA. Repeat carotid duplex in 6-12 months. Denies seizure precautions, continue Keppra 750 mg b.i.d., lacosamide 100 mg b.i.d. for seizure prophylaxis. No driving until seizure-free for 6 months and cleared by a physician. After discussing pros and cons will give a trial of Nuedexta for pseudobulbar affect. Side-effect profile was discussed with the patient in detail. Will refer to Psychiatry for further evaluation and management of anxiety, emotional lability and mood disorders. Follow-up regularly with couture dressmaker, gamer and other specialists. Follow Up: 3 months. Yarelis Wick MD Vascular Neurologist [facility] Stroke [facility] # [phone] Urgent Stroke Calls [phone](ACCESS) I have personally participated in the care of this patient. I have reviewed all pertinent clinical information, including history, physical exam, investigation results and plan. 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 Important Notice: This note was created with the assistance of a speech recognition program. While intending to generate a timely document that accurately reflects the content of the encounter, no guarantee can be provided that every grammatical or spelling mistake has been or will be identified or corrected. Thank you for your understanding. documented in this encounter [facility] 07-30-2023 History of Presen t illness Narrative [...] clearance from neurology. documented in this encounter [facility] 07-08-2023 Evaluation note Encounter Date Diagnosis Assessment Notes Jun, Diabetes mellitus with renal manifestations, uncontrolled (ICD-10 - E11.29) [facility] Other 11-09-2023 Evaluation note* Encounter Date Diagnosis Assessment Notes Treatment Notes Treatment Clinical Notes Apr, Insulin long-term use (ICD-10 - Z79.4) Apr, Type 2 diabetes mellitus with diabetic chronic kidney disease (ICD-10 - E11.22) 1. Controlled, Type 2 diabetes A1c 6.8%. 2. Blood glucose levels improved. According to penelope 2 cgm download 04/16/23-04/29/23: Avg glucose 157. [...] addressed- pt. will have paperwork sent from [facility] for diabetic shoes. She has history [...] S91.301A) keep f/u with Dr. Mata Wednesday05/10/23 [facility] Other 05-05-2023 Evaluation note* Encounter Date Diagnosis Assessment Notes Treatment Notes Treatment Clinical Notes October, Hyperlipidemia (ICD-10 - E78.5) [facility] Other 12-14-2022 NotePROCEDURE: XR FOOT RT MIN [...] Electronically authenticated by: AMANDA HOSKINS Date: 2022-06-10 09:23[facility]10-18-2022 Evaluation note* Encounter Date Diagnosis Assessment Notes [...] current with her PCP for hyperlipidemia control [facility] Other 10-05-2022 NotePROCEDURE: XR ANKLE RT MIN [...] Electronically authenticated by: AMANDA HOSKINS Date: 2022-04-01 10:53[facility]08-25-2022 NotePROCEDURE: XR ANKLE LT MIN 3 V [...] Electronically authenticated by: AMANDA HOSKINS Date: 2022-02-19 08:07[facility]08-25-2022 NotePROCEDURE: XR FOOT RT MIN 3 VIEWS [...] Electronically authenticated by: AMANDA HOSKINS Date: 2022-02-19 08:04[facility]07-07-2022 Evaluation note* Encounter Date Diagnosis Assessment Notes Treatment Notes Treatment Clinical Notes Dec, Diabetes mellitus with renal manifestations, uncontrolled (ICD-10 - E11.29) [facility] Other 04-20-2022 Evaluation note* Encounter Date Diagnosis [...] addressed- pt. will have paperwork sent from [employer] for diabetic shoes. She has history of [...] ml/min (ICD-10 - N18.3) Keep f/u with fur liner pt reported Dr. Donaldson no longer practicing- recommend [facility] nephrology Sep, BMI 40.0-44.9, adult (ICD-10 - Z68.41) Deciphering the nutrition facts label material was published [facility] Other 01-20-2022 Evaluation note* Encounter Date Diagnosis [...] addressed- pt. will have paperwork sent from [facility] for diabetic shoes. She has history [...] ml/min (ICD-10 - N18.3) Keep f/u with fur liner. Jun, BMI 40.0-44.9, adult (ICD-10 - Z68.41) Deciphering the nutrition facts label material was published [place] [facility] Other Evaluation noteNo InformationNort [facility] Other Evaluation note* Diagnosis 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 (CMS/HCC)- Primary Preoperative clearance Unspecified pre-operative examination Bunion of right foot Bunion Essential hypertension, benign (CMS/HCC) Essential hypertension, benign Type 2 diabetes mellitus with microalbuminuria, with long-term current use of insulin (CMS/HCC) documented in this encounter [facility] HealthcareEvaluation noteNo assessment information availablePromedica [facility] Work Phone: Evaluation note* Diagnosis Sequelae, post-stroke- Primary Seizure (CMS-HCC) Other convulsions Hypomagnesemia Disorders of magnesium metabolism Colitis Other and unspecified noninfectious gastroenteritis and colitis Abnormal brain MRI Nonspecific (abnormal) findings on radiological and other examination of skull and head Poorly controlled diabetes mellitus ([facility]) Type II or unspecified type diabetes mellitus without mention of complication, not stated as uncontrolled CKD stage 3 secondary to diabetes ([facility]) Type 2 diabetes mellitus with complication, with long-term current use of insulin ([facility]) Gait instability Abnormality of gait PBA (pseudobulbar affect) 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 documented [facility] System[facility] general Narrative - Reported* Type Description Date [...] 2020 Hospitalization History [facility]ures-[facility]2020 [facility] Other [facility] [employer] [facility] [email or web address] general Narrative - Reported* Type Description Date Medical History Diabetes Medical History Hypertension Medical History [facility] Medical History Chronic pelvic pain Medical History CRF stage 3 Medical History LEFT ANKLE FRACTURE WITH SURGICA L REPAIR Medical History RIGHT FOOT ABSCESS Medical History Seizures 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 Medical History HYPERLIPIDEMIA Medical History [...] 2020 Hospitalization History [facility] 05/2020 [facility] Other History general Narrative - Reported* Type Description Date Medical History Diabetes Medical History Hypertension Medical History [facility] Medical History Chronic pelvic pain Medical History CRF stage 3 Medical History LEFT ANKLE FRACTURE WITH SURGICA L REPAIR Medical History RIGHT FOOT ABSCESS Medical History Seizures 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 Medical History HYPERLIPIDEMIA Medical History [...] Back fracture-[facility] 2020 Hospitalization History Seizures-[facility] 05/2020 [employer] Other InstructionsNot on filedocumented in this encounter [facility] SystemInstructionsNot on filedocumented in this encounter [facility]ructionsNot on filedocumented in this encounter [facility] SystemReason for referral (narrative)* Consultation (Routine) - Pending Review Specialty Diagnoses / Procedures Referred By Jade leblanc Referred To Contact Behavioral Health Diagnoses Sequelae, post-stroke PBA (pseudobulbar affect) Yarelis Wick MD [address] [place] [address], [address] [phone] Awa Atkinson, ELECTRICIAN YARD-IMPROVEMENT ANALYST [address] [place] [address] Referral ID Status Reason Start Date Expiration Date Visits Requested Visits Authorized [id number] Pending Review Specialty Services Required 09/10/2023 09/09/2024 1 1 * Medication Prior Authorization - Pending Review Specialty Diagnoses / Procedures Referred By Jade t Referred To Contact Diagnoses Sequelae, post-stroke PBA (pseudobulbar affect) Yarelis Wick MD [address] [place] [address], [address] [phone] Referral ID Status Reason Start Date Expiration Date V isits Requested Visits Authorized [id number] Pending Review 1 1 [facility] Summary Purpose Family History No Family History Records FoundNo Family History Records FoundNo Family History Records FoundNo Family History Records FoundNo Family History Records FoundNo Family History Records FoundNo Family History Records FoundNo Family History Records Found Advance Directives Documents on File Type Date 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 Advance Directives and Living Will 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 Latest Code Status on File Code Status Date Activated Date Inactivated Comments Full Code 07/23/2023 12:49 PM 07/26/2023 6:42 PM Code Status History Code Status Date Activated Date Inactivated Comments Full Code 10/30/2022 11:22 PM 11/03/2022 9:46 PM Full Code 10/29/2022 4:03 PM 10/30/2022 5:47 PM Full Code 10/09/2022 3:47 AM 10/10/2022 7:02 PM Full Code 05/12/2022 2:41 PM 05/15/2022 7:05 PM Latest Code Status on File Code Status Date Activated Date Inactivated Comments Full Code 07/23/2023 12:49 PM 07/26/2023 6:42 PM Code Status History Code Status Date Activated Date Inactivated Comments Full Code 10/30/2022 11:22 PM 11/03/2022 9:46 PM Full Code 10/29/2022 4:03 PM 10/30/2022 5:47 PM Full Code 10/09/2022 3:47 AM 10/10/2022 7:02 PM Full Code 05/12/2022 2:41 PM 05/15/2022 7:05 PM Assessments Diagnosis 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 (HCC) Additional Source Comments INFORMATION SOURCE (unrecogn ized section and content) DATE CREATED AUTHOR 12/22/2017 [facility] DATE CREATED AUTHOR AUTHOR'S ORGANIZ ATION 01/24/2018 [facility] DATE CREATED AUTHOR AUTHOR'S ORGANIZ ATION 09/14/2019 [facility] DATE CREATED AUTHOR AUTHOR'S ORGANIZ ATION 05/11/2022 [facility] DATE CREATED AUTHOR AUTHOR'S ORGANIZ ATION 11/11/2022 [facility] DATE CREATED AUTHOR AUTHOR'S ORGANIZ ATION 07/31/2023 [facility] DATE CREATED AUTHOR AUTHOR'S ORGANIZ ATION 08/13/2023 [facility] DATE CREATED AUTHOR AUTHOR'S ORGANIZ ATION 09/11/2023 [facility] Reason for Visit (unrecogniz ed section and content) Status Reason Specialty Diagnoses / Procedures Referre d By Contact Referred To Contact Diagnoses Vitreous hemorrhage (HCC) VITREOUS HEMORRAGE Procedures IA VITRECTOMY,MECHANICAL IA VITRECTOMY PARS PLANA REMOVE PRERETINAL MEMBRANE VITRECTOMY 25 GAUGE Martir Bang MD [facility] [facility], [address] [place] [address] [facility] Reason Comments Follow-up Surgical clearance Reason Onset Date Comments Nudexta 09/13/2023 Reason Comments Follow-up Patient is here toda y as a post stroke follow up Reason Onset Date Comments Request for Surgical Clearance 09/17/2023 Care Teams (unrecognized sec tion and content) Distribution Center Associate Relationship Specialty Start Date End Date Christophe Irwin MD [address] [place] [id number] PCP - General Family Medicine 07/20/23 Distribution Center Associate Relationship Specialty Start Date End Date Christophe Irwin MD [address] [place] [address] PCP - General Family Medicine 07/20/23 Distribution Center Associate Relationship Specialty Start Date End Date Christophe Irwin MD [address] [place] [address] PCP - General Family Medicine 07/23/23 Distribution Center Associate Relationship Specialty Start Date End Date Christophe Irwin MD [address] [place] [address] PCP - General Family Medicine 07/23/23 Distribution Center Associate Relationship Specialty Start Date End Date Christophe Irwin MD [address] [place], [place] [id number] PCP - General Family Medicine 07/23/23 Goals (unrecognized section and content) Goals may [...] BE BASED ON THE PRIMARY CLINICAL RECORDS. [facility]. provides no warranty or guarantee of the accuracy or completeness of information in this document.
--- NOTE | 2023-09-24 11:31 | ECG_ITS ---
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
--- NOTE | 2023-09-24 11:52 | PM.PRESUREVA ---
History of Present Illness History of Present Illness Chief complaint: right hallux rididus right hallux valgus Narrative: Patient results for preadmission testing. Please see HPI from Dr. Mata dated 09/14/2023. Review of Systems ROS Narrative Please see ROS from Dr. Mata dated 09/14/2023. [facility] Medical History (Updated 09/24/23 @ 11:27 by Anastasia Maharaj NP) Anemia ?D64.9 - Anemia, unspecified (ICD-10) Panic attacks ?F41.0 - Panic disorder [episodic paroxysmal anxiety] (ICD-10) Depression ?F32.A - Depression, unspecified (ICD-10) Anxiety ?F41.9 - Anxiety disorder, unspecified (ICD-10) Transient ischemic attack ?G45.9 - Transient cerebral ischemic attack, unspecified (ICD-10) Seizures ?R56.9 - Unspecified convulsions (ICD-10) Constipation ?K59.00 - Constipation, unspecified (ICD-10) Dyspnea on exertion ?R06.09 - Other forms of dyspnea (ICD-10) Urinary urgency ?R39.15 - Urgency of urination (ICD-10) Incontinence ?R32 - Unspecified urinary incontinence (ICD-10) Glaucoma ?H40.9 - Unspecified glaucoma (ICD-10) GERD (gastroesophageal reflux disease) ?K21.9 - Gastro-esophageal reflux disease without esophagitis (ICD-10) Thyroid disease ?E07.9 - Disorder of thyroid, unspecified (ICD-10) Nephropathy ?N28.9 - Disorder of kidney and ureter, unspecified (ICD-10) Diabetic retinopathy ?E11.319 - Type 2 diabetes mellitus with unspecified diabetic retinopathy without macular edema (ICD-10) Encephalopathy ?G93.40 - Encephalopathy, unspecified (ICD-10) Emotional lability ?R45.86 - Emotional lability (ICD-10) Incoordination ?R27.9 - Unspecified lack of coordination (ICD-10) Upper extremity weakness ?R29.898 - Other symptoms and signs involving the musculoskeletal system (ICD-10) Gait disturbance ?R26.9 - Unspecified abnormalities of gait and mobility (ICD-10) Lacunar stroke (~04/2022) ?I63.81 - Other cerebral infarction due to occlusion or stenosis of small artery (ICD-10) Seizure disorder ?G40.909 - Epilepsy, unspecified, not intractable, without status epilepticus (ICD-10) Hypertension ?I10 - Essential (primary) hypertension (ICD-10) Osteomyelitis ?M86.9 - Osteomyelitis, unspecified (ICD-10) Hypercholesterolemia ?E78.00 - Pure hypercholesterolemia, unspecified (ICD-10) Flat foot ?M21.40 - Flat foot [pes planus] (acquired), unspecified foot (ICD-10) Diabetes ?E11.9 - Type 2 diabetes mellitus without complications (ICD-10) Chronic kidney disease ?N18.9 - Chronic kidney disease, unspecified (ICD-10) Cellulitis ?L03.90 - Cellulitis, unspecified (ICD-10) Osteonecrosis ?M87.9 - Osteonecrosis, unspecified (ICD-10) Neuropathy ?G62.9 - Polyneuropathy, unspecified (ICD-10) Nail disorder ?L60.9 - Nail disorder, unspecified (ICD-10) Hammertoe ?M20.40 - Other hammer toe(s) (acquired), unspecified foot (ICD-10) Extremity edema ?R60.0 - Localized edema (ICD-10) Ankle fracture ?S82.899A - Other fracture of unspecified lower leg, initial encounter for closed fracture (ICD-10) Wound infection ?T14.8XXA - Other injury of unspecified body region, initial encounter (ICD-10) ?L08.9 - Local infection of the skin and subcutaneous tissue, unspecified (ICD-10) Diabetic foot ulcer ?E11.621 - Type 2 diabetes mellitus with foot ulcer (ICD-10) ?L97.509 - Non-pressure chronic ulcer of other part of unspecified foot with unspecified severity (ICD-10) Hallux valgus ?M20.10 - Hallux valgus (acquired), unspecified foot (ICD-10) Hallux rigidus ?M20.20 - Hallux rigidus, unspecified foot (ICD-10) Surgical History (Updated 09/24/23 @ 11:23 by Anastasia Maharaj NP) Status post ORIF of fracture of ankle ?Z98.890 - Other specified postprocedural states (ICD-10) ?Z87.81 - Personal history of (healed) traumatic fracture (ICD-10) S/P gastric surgery ?Z98.890 - Other specified postprocedural states (ICD-10) H/O oophorectomy History of hysterectomy ?Z90.710 - Acquired absence of both cervix and uterus (ICD-10) H/O eye surgery ?Z98.890 - Other specified postprocedural states (ICD-10) History of esophagogastroduodenoscopy (EGD) ?Z98.890 - Other specified postprocedural states (ICD-10) H/O cystoscopy ?Z98.890 - Other specified postprocedural states (ICD-10) H/O colonoscopy ?Z98.890 - Other specified postprocedural states (ICD-10) History of cholecystectomy ?Z90.49 - Acquired absence of other specified parts of digestive tract (ICD-10) H/O cataract extraction ?Z98.49 - Cataract extraction status, unspecified eye (ICD-10) H/O breast biopsy ?Z98.890 - Other specified postprocedural states (ICD-10) H/O kyphoplasty ?Z98.890 - Other specified postprocedural states (ICD-10) History of appendectomy ?Z90.49 - Acquired absence of other specified parts of digestive tract (ICD-10) H/O foot surgery ?Z98.890 - Other specified postprocedural states (ICD-10) History of incision and drainage ?Z98.890 - Other specified postprocedural states (ICD-10) S/P debridement ?Z98.890 - Other specified postprocedural states (ICD-10) Social History (Updated 09/24/23 @ 11:22 by Anastasia Maharaj NP) Within the past year, how often did you have a drink containing alcohol: never Score interpretation: A score less than 3 is consistent with normal alcohol consumption. Smoking status: Former smoker Highest level of school completed/degree received: high school graduate Meds Home Medications and Allergies Home Medications ?Medication ?Instructions ?Recorded ?Confirmed ?Type amlodipine 5 mg tablet 5 mg PO QPM 04/08/23 09/24/23 History carvedilol 25 mg tablet 25 mg PO BID 04/08/23 07/15/23 History hydralazine 25 mg tablet 25 mg PO TID 04/08/23 09/24/23 History hydrochlorothiazide 25 mg tablet 25 mg PO DAILY 04/08/23 09/24/23 History insulin glargine 100 unit/mL (3 40 unit subcut BID 04/08/23 09/24/23 History mL) subcutaneous pen (Lantus Solostar U-100 Insulin) insulin lispro 100 unit/mL 1 sliding scale dose subcut DAILY 04/08/23 09/24/23 History subcutaneous pen (Humalog KwikPen (U-100) Insulin) lacosamide 100 mg tablet 100 mg PO BID 04/08/23 09/24/23 History levetiracetam 750 mg tablet 750 mg PO Q12H 04/08/23 09/24/23 History losartan 25 mg tablet 25 mg PO QPM 04/08/23 09/24/23 History paroxetine HCl 40 mg tablet 40 mg PO DAILY 04/08/23 09/24/23 History potassium chloride 20 mEq 20 meq PO BID 04/08/23 09/24/23 History tablet,extended release(part/cryst) zolpidem 10 mg tablet 10 mg PO DAILY 04/08/23 09/24/23 History albuterol sulfate 90 mcg/actuation 1 inh inhalation Q6H PRN shortness 07/15/23 09/24/23 Rx aerosol inhaler of breath or wheezing #8.5 grams aspirin 81 mg tablet,delayed 81 mg PO DAILY 09/24/23 09/24/23 History release (Adult Aspirin Regimen) atorvastatin 40 mg tablet 40 mg PO DAILY 09/24/23 09/24/23 History clopidogrel 75 mg tablet 75 mg PO DAILY 09/24/23 09/24/23 History furosemide 20 mg tablet 20 mg PO DAILY 09/24/23 09/24/23 History metoprolol tartrate 50 mg tablet 50 mg PO QPM 09/24/23 09/24/23 History (Lopressor) Allergies Allergy/AdvReac Type Severity Reaction Status Date / Time meperidine [From Demerol] Allergy Severe Hypotension Verified 09/24/23 11:13 morphine Allergy Severe Hypotension Verified 09/24/23 11:13 codeine Allergy constipatio Verified 09/24/23 11:13 n NSAIDS (Non-Steroidal Allergy Rash Verified 09/24/23 11:43 Anti-Inflamma sertraline [From Zoloft] Allergy Verified 09/24/23 11:12 Exam Narrative Exam Narrative: Constitutional: Awake, alert, comfortable, Poorly groomed, nontoxic, interactive, vital signs as charted Head: Normocephalic, atraumatic Neck: Supple, normal appearance, normal range of motion, no meningeal signs, no lymphadenopathy Respiratory: No respiratory distress, breath sounds clear Cardiovascular: Regular rate and rhythm, strong and regular heart tones Psychiatric: Oriented ?3, normal affect Assessment and Plan Assessment and Plan (1) Hallux rigidus: (2) Hallux valgus: (3) Diabetic foot ulcer: Plan Right 1st metatarsal phalangeal joint usual and, possible fibular sesamoidectomy, 2nd toe tenotomy/capsulotomy, possible bone graft scheduled with Dr. Mata 10/07/2023. The patient has a history of CVA, transient ischemic attack, hypertension, admits to dyspnea on exertion but no chest pain. Her blood pressure is 210/118 manually here today, the patient states, I feel fine, my BP runs good at home. I advised the patient she should monitor her pressures and log them at home and that she may need clearance, I also notified Dr. Mata's office of the potential need for further clearance even though we did receive neuro clearance.
[2023-09-24 12:14] LABS: Basophils Absolute Auto 0.1 10^3/uL (0.0-0.1); Basophils Percent Auto 0.6 % (0.2-2.0); Eosinophils Absolute Auto 0.2 10^3/uL (0.0-0.7); Eosinophils Percent Auto 2.1 % (0.9-7.0); Hematocrit 36.4 % (36.0-48.0); Hemoglobin 11.6 g/dL (12.0-16.0); Immature Granulocytes Abs Auto 0.03 10^3/uL (0.00-0.03); Immature Granulocytes Pct Auto 0.3 % (0.0-0.5); Lymphocytes Absolute Auto 1.9 10^3/uL (1.2-3.8); Lymphocytes Percent Auto 19.8 % (20.5-60.0); Mean Corpuscular HGB Conc 31.9 g/dL (29.9-35.2); Mean Corpuscular Hemoglobin 26.7 pg (26.7-34.0); Mean Corpuscular Volume 83.7 fL (81.0-99.0); Mean Platelet Volume 10.3 fL (9.5-13.5); Monocytes Absolute Auto 0.6 10^3/uL (0.3-0.8); Monocytes Percent Auto 6.6 % (1.7-12.0); Neutrophils Absolute Auto 6.7 10^3/uL (1.4-6.5); Neutrophils Percent Auto 70.6 % (43.0-75.0); Platelet Count 316 10^3/uL (150-450); Red Blood Count 4.35 10^6/uL (4.20-5.40); Red Cell Distribution Width 13.4 % (11.0-15.0); White Blood Count 9.5 10^3/uL (4.0-11.0)
[2023-09-24 12:50] LABS: Partial Thromboplastin Time 29.6 sec (22.3-36.2); Prothrombin Time 10.6 sec (9.0-11.6)
[2023-09-24 12:52] LABS: Anion Gap 15.1; BUN Creatinine Ratio 15.3; Calcium 9.2 mg/dL (8.5-10.1); Carbon Dioxide 27.2 mmol/L (21.0-32.0); Chloride 101 mmol/L (98-107); Estimated GFR (African America 36 (>=60); Estimated GFR (Non-African Ame 29 (>=60); Glucose 118 mg/dL (74-106); Potassium 3.3 mmol/L (3.5-5.1); Sodium 140 mmol/L (136-145)
== END 2023-09-24 10:53 | disposition home or self-care (01) ==
PROVIDERS: PCP Family Medicine; Visit Provider Podiatrist Foot & Ankle Surgery
DX: Z01.810 Encounter for preprocedural cardiovascular examination (principal); Z01.812 Encounter for preprocedural laboratory examination; Z01.818 Encounter for other preprocedural examination; M20.21 Hallux rigidus, right foot; M20.11 Hallux valgus (acquired), right foot
CPT/HCPCS: 80048; 85025; 85610; 85730; 93005; G0463

== ENCOUNTER 2023-12-20 10:29 | Outpatient (OUT) | payer MEDICARE, MEDICAID, SELFPAY ==
--- OUTSIDE RECORDS SUMMARY | 2023-12-20 10:35 | XMS_ITS | CCD ---
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 Role Phone GUTIERREZ, ALAYNA Unavailable Unavailable GUTIERREZ, ALAYNA Unavailable Unavailable GUTIERREZ, ALAYNA Unavailable Unavailable GUTIERREZ, ALAYNA Unavailable Unavailable VIRGEN, MARLA Unavailable Unavailable VIGREN, MARLA Unavailable Unavailable VIRGEN, MARLA Unavailable Unavailable VIRGEN, MARLA Unavailable Unavailable VIRGEN, MARLA Unavailable Unavailable BABIUCH, BRITTANY Unavailable Unavailable BARTOLO, MARTIR T Admitting Unavailable BARTOLO, MARTIR T Attending Unavailable CHRISTOPHE IRWIN Primary Care UnavailChristophe Dunbar Primary Care Provider RogerShailesh villalobos Unavailable Fadumo Chau Unavailable PROVIDER, UNKNOWN Attending Unavailable PROVIDER, UNKNOWN Admitting Unavailable ISABELLA KELLY Attending Unavailable NADEREAdriano, DR CHRISTOPHE Redmond Primary Care Unavailable LETICIALUIS ANGEL OLIVERISABELLA Admitting Unavailable LETICIAISABELLA Admitting Unavailable LETICIAKIMLY Attending Unavailable NADERER, DR CHRISTOPHE Redmond Primary Care Unavailable NADERER, DR CHRISTOPHE Redmond Primary Care Unavailable MONET MARTEL Attending Unavailable MONET MARTEL Admitting Unavailable MONET MARTEL Attending Unavailable NADERER, DR CHRISTOPHE Redmond Primary Care Unavailable MONET MARTEL Admitting Unavailable NADERER, DR CHRISTOPHE Redmond Primary Care Unavailable MONET MARTEL Attending Unavailable MONET MARTEL Admitting Unavailable NADERER, DR CHRISTOPHE Redmond Primary Care Unavailable MONET MARTEL Attending Unavailable MONET MARTEL Admitting Unavailable NADERER, DR CHRISTOPHE Redmond Primary [...] Attending Unavailable HIGHLANDER, PETER D Admitting Unavailable Christophe Irwin MD Primary Care Provider Nancy Stevens Attending Unavailable MapNancy villalobos Admitting Unavailable Roney Sahu Primary Care Unavailable Christophe Irwin MD Primary Care Provider CHRISTOPHE IRWIN Attending Unavailable NADERER, CHRISTOPHE Attending Unavailable NADEREAdriano, CHRISTOPHE Attending Unavailable ILANA, EHAD Attending Unavailable JARRETTERECHRISTOPHE Oh Referring Unavailable JARRETTERECHRISTOPHE Oh Primary Care Unavailable ALIDA, CHRISTOPHE Primary Care Unavailable BERTA ALDRICH Attending Unavailable CHRISTOPHE IRWIN Primary Care Unavailable ANDREW SHARIF Attending Unavailable ILANA, EHAD Consulting Unavailable HELEN QUICK P Admitting Unavailable ANYI DELGADO Attending Unavailable ANYI DELGADO Referring Unavailable CHRISTOPHE IRWIN Primary Care Unavailable ANDREW SHARIF Attending Unavailable KOLE, ANDREW Referring Unavailable NADERECHRISTOPHE Oh Primary Care Unavailable IVY SHARIFN Attending Unavailable KOLE, ANDREW Referring Unavailable JARRETTERECHRISTOPHE Oh Primary Care Unavailable ANDREW SHARIF Attending Unavailable KOLE, ANDREW Referring Unavailable JARRETTERERCHRISTOPHE Primary Care Unavailable KROTZER, ANYI D Attending Unavailable OLIVIAZER, ANYI D Referring Unavailable CHRISTOPHE IRWIN Primary Care Unavailable ALIDA, CHRISTOPHE Primary Care Unavailable PATRICIA HAWKINS Referring Unavailable PATRICIA HAWKINS Attending Unavailable RUPESH ALLEN Attending Unavailable Allergies Allergy Classification Reported Allergen(s) Allergy Type Date of Onset Reaction(s) Facility (9 sources) meperidine; Translations: [MEPERIDINE (PF)] Drug Allergy 01-31-20 14 Anaphylaxis [facility] Repository (20 sources) morphine; Translations: [MORPHINE] Drug Allergy 01-31-20 Other (See Comments), Anaphylaxis, Unknown, Other [facility] Repository (20 sources) Meperidine; Translations: [MEPERIDINE] Drug Allergy 01-31-20 14 Other (See Comments), Anaphylaxis, Unknown [place], [place] (7 sources) Sertraline; Translations: [SERTRALINE HCL] Drug Allergy 09-05-19 Hives [place], [place] (1 source) Other Propensity to adverse reactions 09-05-19 Other (See Comments) [place], [place] (20 sources) Acetaminophen; Translations: [ACETAMINOPHEN] Drug Allergy 05-06-20 Unknown, Constipation [facility] (1 source) Meperidine Drug Allergy 03-06-20 15 [facility] Rep[facility] (1 source) Sertraline Drug Allergy 05-11-20 20 [facility] (1 source) Tylenol-Codeine #3 Drug allergy (disorder) 05-11-20 [facility] (6 sources) dulaglutide Drug Allergy 05-06-20 23 g/i [facility] (7 sources) semaglutide; Translations: [SEMAGLUTIDE] Drug Allergy 05-06-20 23 g/i s/e [facility] (16 sources) Acetaminophen / Codeine; Translations: [ACETAMINOPHEN-CO DEINE] Drug Allergy 08-13-19 18 Shortness of breath, Abdominal Pain [facility] (3 sources) Meperidine Drug Allergy 12-15-19 23 Unknown [facility] (4 sources) Sertraline; Translations: [SERTRALINE] Drug Allergy 09-05-19 [facility] (1 source) Acetaminophen Drug Allergy 05-06-20 [facility] (1 source) dulaglutide Drug Allergy 05-06-20 [facility] (1 source) Meperidine Drug Allergy 05-06-20 [facility] (1 source) semaglutide Drug allergy (disorder) 05-06-20 [facility] Medications Current Medications Medication Drug Class(es) Dates Sig (Normalized) Sig (Original) acetaminophen 500 mg oral tablet (20 sources) Start: 08-11-2023 take 1000 mg by mouth every six hours Acetaminophen Active 1000 MG PO Every 6 hours August 11, 2023 1:00am take 2 tablets by mouth every si x hours Acetaminophen 500 MG 2 tablets as needed Orally every 6 hrs Active Acetaminophen 50 0 MG CAPS Take 500 mg by mouth as needed 0 Active Alcohol Swabs 70 % (13 sources) Alcohol Swabs 70 % use with insuliun injections E11.9 6 x daily for 90 days Active amitriptyline hydrochloride 75 mg oral tablet (19 sources) Tricyclic Antidepressant Start: 08-11-2023 take 75 mg by mouth once daily at bedtime Amitriptyline Active 75 MG PO Daily at bedtime August 11, 2023 1:00am take 1 tablet by ewelina th every twenty-four hours Amitriptyline HCl 75 MG 1 tablet at bedtime Orally Once a day Active amLODIPine 5 mg oral tablet (16 sources) Dihydropyridine Calcium Channel Ajay Start: 11-02-2022 take 1 tablet by [...] Active ascorbic acid 500 mg oral capsule (11 sources) Vitamin C Start: 08-11-2023 Ascorbic Acid (Vitamin C) Active CAP PO As Directed August 11, 2023 1:00am FreeTextSig: as directed Orally; Note: Source Status: Taking; Provider: Rodney Cruz ( ) ascorbic acid, v itamin C, 250 mg tablet,chewable Chew 1 tablet and swallow 2 (two) times a day. 0 Active Vitamin C 500 MG as directed Orally Active aspirin 81 mg delayed release oral tablet (6 sources) Platelet Aggregation Inhibitor, Nonsteroidal Anti-inflammatory Drug Start: 05-16-2022 End: 09-10-2023 take 1 tablet by mouth in the morning aspirin 81 mg Take 1 tablet (81 mg total) by mouth in the morning. 30 tablet 11 09/10/2023 Active atorvastatin 40 mg oral tablet (12 sources) HMG-CoA Reductase Inhibitor Start: 07-26-2023 take [...] meals. 60 tablet 2 11/02/2022 Active cholecalciferol 0.025 mg oral capsule (20 sources) Vitamin D Start: 08-11-19 24 Cholecalciferol (Vitamin D3) Active 1 CAP PO August 11, 2023 1:00am FreeTextSi capsule Orally; Note: Source Status: Taking; Provider: Rodney Cruz ( ) Start: 08-24-2022 take 1 tablet by ewelina th in the morning cholecalciferol, vitamin D3, (VITAMIN D3) 5,000 units tablet Take 1 tablet (5,000 Units total) by mouth in the morning. 90 tablet 3 08/24/2022 Active Cholecalciferol 25 MCG (1000 UT) 1 capsule Orally Active Cholecalciferol 1.25 MG (39722 UT) 1 capsule Orally Active dapagliflozin 10 mg oral tablet (8 sources) Sodium-Glucose Cotransporter 2 Inhibitor take 1 tablet by mouth in the morning dapagliflozin (FARXIGA) 10 mg tablet Take 1 tablet (10 mg total) by mouth in the morning. 0 Active dextromethorphan hydrobromide 20 mg / quiNIDine sulfate 10 mg oral capsule (5 sources) Antiarrhythmic, Uncompetitive X-zadlsi-H-aspartate Receptor Antagonist, Cytochrome P450 2D6 Inhibitor, Sigma-1 [...] skin once a week mondays 0 Active ergocalciferol 1.25 mg oral capsule (20 sources) Provitamin D2 Compound Start: 08-11-2023 take 1250 ug by mouth every week Ergocalciferol (Vitamin D2) Active 1250 MCG PO every week August 11, 2023 1:00am Start: 02-13-2020 take 1 capsule by mo uth every week Ergocalciferol 1.25 MG (35885 UT) 1 capsule Orally weekly Jan, Active 2 ml fentaNYL 0.05 mg/ml injection (3 sources) Opioid Agonist Start: 09-07-2019 fentaNYL (SUBL IMAZE) injection 50 mcg Start: 09-07-2019 fentaNYL (SUBL IMAZE) injection 25 mcg Start: 09-07-2019 End: 09-07-2019 fentaNYL (SUBLIMAZE) 100 MCG /2ML injection fluticasone propionate 0.05 mg/actuat metered dose nasal spray (20 sources) Corticosteroid Start: 08-11-2023 take 1 spray(s) nasal route once daily Fluticasone Propionate (Flonase Allergy Relief) 50 mcg/actuation spray,suspension Active 1 SPRAY INTRANASAL Daily August 11, 2023 1:00am FreeTextSi spray in each nostril Nasally Once a day; Note: Source Status: Taking; Provider: Rodney Cruz ( ) fluticasone prop ionate (FLONASE) 50 mcg/actuation nasal [...] Active hydrALAZINE hydrochloride 25 mg oral tablet (8 sources) Arteriolar Vasodilator Start: 11-03-2022 take 1 tablet by mouth every eight hours hydrALAZINE (APRESOLINE) 25 mg tablet Take 1 tablet (25 mg total) by mouth every 8 (eight) hours. 90 tablet 2 11/03/2022 Active 3 ml insulin glargine 100 unt/ml pen injector (20 sources) Insulin Analog Start: 08-11-2023 End: 08-12-2023 Insulin Glargine (Lantus Solostar U-100 Insulin) 100 unit/mL (3 mL) insulin pen Active 40 UNIT SUBCUT Twice daily 90 90 August 12, 2023 4:37pm FreeTextSi units Subcutaneous bid; Note: Source Status: Continuetitrate up to 90 units/day; Refills: 1; Qty: 90 Milliliter; Provider: Rodney Moss Start: 11-02-2022 inject 40 [IU] by causey bcutaneous injection in the morning insulin glargine (LANTUS, [...] meals and nightly) Sliding scale 0 Active Insulin Lispro (Humalog Kwikpen Insulin) 100 unit/mL insulin pen (2 sources) Start: 09-30-2023 Insulin Lispro (Humalog Kwikpen Insulin) 100 unit/mL insulin pen Active 0 SUBCUT .COMPLEX September 30, 2023 2:39pm 9,12,15,18 units ac ACCORDING TO MEAL SIZE. Corrective SCALE 1:20 ac ( hs if >200 half dose) Subcutaneous ac,hs; (Expect up to 50 units/day) Start: 08-11-2023 End: 09-30-2023 Insulin Lispro (Humalog Kwik pen Insulin) 100 unit/mL insulin pen Discontinued SUBCUT August 11, 2023 1:00am September 30, 2023 2:42pm FreeTextSi,12,15,18 units ac ACCORDING TO MEAL SIZE. Corrective SCALE 1:20 ac ( hs if >200 half dose) Subcutaneous ac,hs; Note: Source Status: Refill(Expect up to 50 units/day); Refills: 1; Qty: 50 Milliliter; Provider: Rodney Moss isopropyl alcohol 0.7 ml/ml medicated pad (7 sources) Alcohol Swabs 70 % use with insuliun injections E11.9 6 x daily for 90 days Active lacosamide 100 mg oral tablet (8 sources) Anti-epileptic Agent Start: 3 take 1 [...] (20 sources) Angiotensin 2 Receptor Ajay Start: 08-11-2023 End: 09-30-2023 take 1 tablet by mouth once daily Losartan Active 100 MG PO Daily September 30, 2023 2:40pm 1 tablet Orally Once a day; Start: 11-02-2022 take 1 tablet by ewelina th in the morning losartan (Cozaar) 100 MG [...] 400 mg by mouth daily 0 Active magnesium oxide 400 mg oral capsule (2 sources) Start: 09-30-2023 take 400 mg by mouth once daily Magnesium Oxide Active 400 MG PO Daily September 30, 2023 2:40pm Start: 08-11-2023 End: 09-30-2023 take 1 mg by mouth twice daily Magnesium Oxide Discont inued MG PO Twice daily August 11, 2023 1:00am September 30, 2023 2:42pm FreeTextSig: as directed Orally BID; Note: Source Status: Taking; Provider: Rodney Cruz ( ) metoprolol tartrate 50 mg oral tablet (20 sources) beta-Adrenergic Ajay Start: 08-11-2023 End: 09-30-2023 take 50 mg by mouth twice daily Metoprolol Tartrate Active 50 MG PO Twice daily September 30, 2023 2:41pm 2 ml midazolam 1 mg/ml injection (1 source) Benzodiazepine Start: 09-07-2019 midazolam (VERSED) injection 1 mg omeprazole 40 [...] Active PARoxetine hydrochloride 20 mg oral tablet (20 sources) Serotonin Reuptake Inhibitor Start: 08-11-2023 take 20 mg by mouth once daily Paroxetine Hcl Active 20 MG PO Daily August 11, 2023 1:00am take 1 tablet by ewelina th once daily in the morning PARoxetine (PAXIL) 40 mg tablet Take 1 tablet (40 mg total) by mouth every morning. 0 Active take 1 tablet by ewelina th every twenty-four hours PARoxetine HCl 20 MG 1 tablet in the morning Orally Once a day Active pen needle, diabetic (BD Ult ra-Fine Mini Pen Needle) (1 source) Start: 08-11-2023 pen needle, di abetic (BD Ultra-Fine Mini Pen Needle) Active .Route August 11, 2023 1:00am microencapsulated potassium chloride 20 meq extended release oral tablet (20 sources) Start: 08-11-2023 Potassium Chlo ride (Klor-Con M20) 20 mEq tablet,ER particles/crystals Active 20 MEQ PO Daily August 11, 2023 1:00am take 1 tablet by ewelina th every twenty-four hours Klor-Con M20 20 MEQ 1 tablet with food Orally Once a day Active rosuvastatin calcium 10 mg oral tablet (20 sources) HMG-CoA Reductase Inhibitor Start: 08-11-2023 End: 09-30-2023 take 10 mg by mouth once daily Rosuvastatin Active 10 MG PO Daily September 30, 2023 2:41pm End: 07-30-2023 take 1 tablet by mouth in the morning rosuvastatin (Crestor) 10 MG tablet Take 10 mg by mouth in the morning. 0 07/30/2023 Discontinued 0.25 mg, 0.5 mg dose 1.5 ml semaglutide 1.34 mg/ml pen injector (13 sources) Start: 03-16-2022 Ozempic (0.25 or 0.5 MG/DOSE) 2 MG/1.5ML 0.5mg Subcutaneous once weekly trulicity ineffective Feb, Active sucralfate 1000 mg oral tablet (19 sources) Aluminum Complex Start: 08-11-2023 End: 09-30-2023 take 1 g by mouth four times daily Sucralfate Active 1 GM PO Four times daily September 30, 2023 2:41pm take 1 tablet by mouth every six [...] qid Active thiamine 100 mg oral tablet (8 sources) Start: 11-03-2022 take 1 tablet by mouth in the morning thiamine HCl (VITAMIN B-1) 100 mg tablet Take 1 tablet (100 mg total) by mouth in the morning. 30 tablet 2 11/03/2022 Active vitamin b12 1 mg oral tablet (8 sources) Vitamin B12 Start: 11-02-2022 take 1 [...] Drug Class(es) Dates Sig (Normalized) Sig (Original) blood sugar diagnostic (OneTouch Ultra Test) (1 source) Start: 08-11-2023 End: 09-30-2023 blood sugar diagnostic (OneTouch Ultra Test) Discontinued .Route August 11, 2023 1:00am September 30, 2023 2:42pm clopidogrel 75 mg oral tablet (3 sources) [...] tobramycin-dexameth asone (TOBRADEX) ophthalmic suspension 1 drop empagliflozin 10 mg oral tablet (20 sources) Sodium-Glucose Cotransporter 2 Inhibitor Start: 08-11-2023 End: 09-30-2023 take 1 tablet by mouth once daily Empagliflozin Discontinued 1 TAB PO Daily August 11, 2023 1:00am September 30, 2023 2:38pm FreeTextSi tablet Orally Once a day; Note: Source Status: Continue; Refills: 1; Qty: 90 Tablet; Provider: Rodney Moss Start: 07-17-2021 take 1 tablet by ewelina th every twenty-four hours Jardiance 10 MG 1 tablet Orally Once a day for 90 day(s) Jun, Active esomeprazole 40 mg delayed release oral capsule [...] Documented Da te Episodic/Chronic Acute cerebrovascular disease (20 sources) Cerebrovascular accident due to occlusion of left middle cerebral artery by embolus; Translations: [Cerebral infarction due to embolism of left middle cerebral artery] Onset: 1 07-30-2023 Chronic Acute cerebrovascular disease (1 source) Acute cerebrovascular disease Onset: 4 Administrative/social admission (5 sources) Dietary counseling and surveillance; Translations: [Patient encounter status] Onset: 2 Resolved: 2 Episodic Anal and [...] dementia, and amnestic and other cognitive disorders (7 sources) Pseudobulbar affect; Translations: [Pseudobulbar affect] Onset: [...] Onset: 2 Resolved: 2 Chronic Esophageal disorders (5 sources) Gastroesophageal reflux disease; Translations: [Gastro-esophageal reflux [...] 07-15-2023 Chronic Genitourinary symptoms and ill-defined conditions (5 sources) Incontinence; Translations: [Mixed incontinence] Onset: 7 09-14-2022 Chronic Genitourinary symptoms and ill-defined conditions (5 sources) Urgent desire to urinate; Translations: [Urgency of urination] 10-17-2020 Episodic Glaucoma (5 sources) Glaucoma; Translations: [Unspecified glaucoma] 10-17-2020 Chronic Hypertension with complications and secondary hypertension (7 sources) Hypertensive chronic kidney disease with stage 1 through stage 4 chronic kidney disease, or unspecified chronic kidney disease; Translations: [Hypertensive encephalopathy] Onset: 3 10-30-2022 Chronic Infective arthritis and osteomyelitis (except that caused by tuberculosis or sexually transmitted disease) (1 source) Other acute osteomyelitis, right ankle and foot; Translations: [OTH ACUTE OSTEOMYEL RT ANKLE FOOT] Onset: 3 Chronic Late effects of cerebrovascular disease (7 sources) Sequela of cerebrovascular accident; Translations: [Unspecified sequelae of cerebral infarction] Onset: 3 07-14-2022 Chronic Mood disorders (3 sources) Recurrent major depressive episodes, mild ; Translations: [Major depressive disorder, recurrent, mild] Onset: 4 07-15-2023 Chronic Nutritional deficiencies (20 sources) Vitamin D deficiency; Translations: [Vitamin D deficiency, unspecified] Onset: 1 Chronic Occlusion or stenosis of precerebral arteries (5 sources) Bilateral stenosis of carotid arteries; Translations: [Occlusion and stenosis of bilateral carotid arteries] Onset: 3 07-14-2022 Chronic Open wounds of extremities (1 source) Unspecified open wound, right foot, initial encounter Episodic Osteoarthritis (3 sources) Osteoarthritis of joint of bilateral hands; Translations: [Primary osteoarthritis, right hand] Onset: 4 07-15-2023 Chronic Other aftercare (20 sources) Long-term current use of insulin; Translations: [senior living (current) use of insulin] Episodic Other bone disease and musculoskeletal deformities (3 sources) Osteopenia; Translations: [Other specified disorders of bone density and structure, right thigh] Onset: 4 07-15-2023 Episodic Other circulatory disease (1 source) Low blood pressure Onset: 4 Episodic Other connective tissue disease (1 source) Plantar fascial fibromatosis; Translations: [PLANTAR FASCIAL FIBROMATOSIS] Onset: 3 Episodic Other connective tissue disease (3 sources) Deformity of lower limb; Translations: [Contracture of muscle, unspecified lower leg] Onset: 4 07-15-2023 Episodic Other endocrine disorders (20 sources) [...] BODY REGION SEQ] Onset: 3 Episodic Other nutritional; endocrine; and metabolic disorders [...] Chronic Other nutritional; endocrine; and metabolic disorders (9 sources) Hypomagnesemia; Translations: [Hypomagnesemia] Onset: 1 07-15-2023 Chronic Other nutritional; endocrine; and metabolic disorders (1 source) Hypomagnesemia; Translations: [Hypomagnesemia] Onset: 3 Chronic Other skin disorders (1 source) Nail [...] OF RIGHT LOWER LIMB] Onset: 3 Episodic Syncope (2 sources) Syncope and collapse; Translations: [Syncope] Onset: 4 Episodic Thyroid disorders (5 sources) Disorder of thyroid gland; Translations: [Disorder [...] 3 UNSP] Onset: 3 Unclassified (1 source) Weakness - Generalized Onset: 4 Unclassified (1 source) ill Onset: 4 Past or Other Problems Problem Classification Problem Date Documented Da te Episodic/Chronic Abdominal pain (20 sources) Abdominal pain; Translations: [Abdominal pain] Onset: 10-16-2020 10-17-2020 Episodic Acquired foot deformities (10 sources) Flat foot [pes planus] (acquired), right foot; Translations: [Bunion] Onset: 07-14-2022 07-30-2023 Episodic Epilepsy; convulsions (20 sources) Seizure; Translations: [Unspecified convulsions] Onset: 05-24-2021 07-15-2023 Episodic Fluid and electrolyte disorders (8 sources) Hypokalemia; Translations: [Hypokalemia] Onset: 05-11-2022 07-15-2023 Episodic Gastrointestinal hemorrhage (5 sources) Coffee ground vomiting; Translations: [Hematemesis] Onset: 10-16-2020 10-17-2020 Episodic Malaise and fatigue (6 sources) Left hemiparesis; Translations: [Weakness] Onset: 10-30-2022 10-30-2022 Episodic Mood disorders (5 sources) Mood disorders Onset: 09-10-2023 09-10-2023 Nausea and vomiting (20 sources) Nausea and vomiting; Translations: [Nausea & vomiting] Onset: 10-16-2020 10-17-2020 Episodic Noninfectious gastroenteritis (10 sources) Colitis; Translations: [Noninfective gastroenteritis and colitis, unspecified] Onset: 10-29-2022 07-15-2023 Episodic Open wounds of extremities (1 source) Unspecified open wound of left lesser toe(s) without damage to nail, initial encounter; Translations: [UNS OP WND LT LSR TOE NO DMG NL INT] Onset: 07-03-2022 Episodic Other aftercare (5 sources) senior living (current) use of insulin; 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] Onset: 11-01-2017 Resolved: 10-15-2021 Episodic Other circulatory disease (5 sources) History of cerebrovascular accident; Translations: [Personal history of transient ischemic attack (TIA), and cerebral infarction without residual deficits] Onset: 10-30-2022 11-02-2022 Episodic Other circulatory disease (1 source) Personal history of transient ischemic attack (TIA), and cerebral infarction without residual deficits; Translations: [Personal history of transient ischemic attack (TIA), and cerebral infarction without residual deficits] Onset: 11-02-2022 Episodic Other connective tissue disease (4 sources) Pain in right foot; Translations: [PAIN IN RIGHT FOOT] Onset: 02-18-2022 Episodic Other connective tissue disease (6 sources) Other symptoms and signs involving the musculoskeletal system; Translations: [Other musculoskeletal symptoms referable to limbs] Onset: 07-23-2023 07-24-2023 Episodic Other eye disorders (3 sources) Myogenic ptosis of left eyelid; Translations: [Myogenic ptosis of right eyelid] Onset: 12-23-2016 Episodic Other fractures (5 sources) Closed fracture of first lumbar vertebra; Translations: [Unspecified fracture of first lumbar vertebra, initial encounter for closed fracture] Onset: 11-03-2020 11-03-2020 Episodic Other gastrointestinal disorders (20 sources) Diarrhea; Translations: [Diarrhea] Onset: 10-30-2022 10-30-2022 Episodic Other nervous system disorders (6 sources) Abnormal gait; Translations: [Unsteadiness on feet] Onset: 07-14-2022 07-14-2022 Episodic Other nervous system disorders (1 source) Unsteadiness on feet; Translations: [Unsteadiness on feet] Onset: 07-14-2022 Episodic Other nervous system disorders (1 source) Anesthesia of skin; Translations: [Anesthesia of skin] Onset: 07-23-2023 Episodic Other non-traumatic joint disorders (4 sources) Pain in right ankle and joints of right foot; Translations: [PAIN IN RIGHT ANKLE] Onset: 04-01-2022 Episodic Other screening for suspected conditions (not mental disorders or infectious disease) (7 sources) Magnetic resonance imaging of brain abnormal; Translations: [Other abnormal findings on diagnostic imaging of central nervous system] Onset: 11-03-2022 11-02-2022 Episodic Pathological fracture (10 sources) Pathological fracture of lumbar vertebra due to secondary osteoporosis; Translations: [Other osteoporosis with current pathological fracture, vertebra(e), initial encounter for fracture] Onset: 12-02-2020 12-02-2020 Episodic Residual codes; unclassified (5 sources) Altered mental status; Translations: [Altered mental status, unspecified] Onset: 05-22-2021 10-30-2022 Episodic Residual codes; unclassified (5 sources) Unresponsive ; Translations: [Transient alteration of awareness] Onset: 09-12-2021 09-12-2021 Episodic Residual codes; unclassified (5 sources) Delirium; Translations: [Disorientation, unspecified] Onset: 10-09-2022 10-09-2022 Episodic Residual codes; unclassified (5 sources) History of clinical finding in subject; Translations: [Personal history of other specified conditions] Onset: 10-30-2022 10-30-2022 Episodic Screening and history of mental health and substance abuse codes (5 sources) Patient condition resolved; Translations: [Personal history of other mental and behavioral disorders] Onset: 09-12-2021 09-12-2021 Episodic Septicemia (except in labor) (5 sources) Sepsis; Translations: [Sepsis, unspecified organism] Onset: 10-30-2022 10-30-2022 Episodic Spondylosis; intervertebral disc disorders; other back problems (5 sources) Backache; Translations: [Dorsalgia, unspecified] Onset: 12-02-2020 12-02-2020 Episodic Unclassified (5 sources) Onset: 12-23-2021 12-23-2021 Results Test Name Value Interpretation Reference Range Facility Office Visiton 12-01-2023 Follow-up visit [id number] Lisa Harrell Karena 1960 F Date Provider Department Center 12/01/2023 RUPESH MAHMOOD MARIT[facility] Family History Adopted: Yes Family history unknown: Yes Level of Service:87663 MI OFFICE/OUTPATIENT NEW MODERATE MDM 45 MINUTES Normal [facility] CBC AND AUTO DIFFon 11-20-19 ABSOLUTE BASOPHIL 0.1 X10E9/L Normal 0.0-0.2 [facility] Comment on above: Performed By: #### C BCA, CMP, 94261-2, THYR #### [facility] ([id number]) [address] [place] [address] 44169 #### 44402-6, 2088-06 #### [facility] ([id number]) [address] [place] [address], [address] [place] [address] ABSOLUTE NEUTROPHIL 8.2 X10E9/L High 1.5-6.6 [facility] Comment on above: Performed By: #### C BCA, CMP, 07545-1, THYR #### [facility] ([id number]) [address] [place] [address] 20954 #### 37465-4, 2088-06 #### [facility] ([id number]) [address] [place] [address], [address] [place] [address] Basophils/100 WBC (Bld) 0.8 % Normal [facility] Comment on above: Performed By: #### C BCA, CMP, 23576-4, THYR #### [facility] ([id number]) [address] [place] [address] 23258 #### 82764-4, 2088-06 #### [facility] ([id number]) [address] [place] [address], [address] [place] [address] Eosinophils (Bld) [#/Vol] 0.1 10*3/uL Normal 0.0-0.4 [facility] Comment on above: Performed By: #### C BCA, CMP, 37890-3, THYR #### [facility] ([id number]) [address] [place] [address] 89972 #### 83168-3, 2088-06 #### [facility] ([id number]) [address] [place] [address], [facility] [address] [place] [address] Eosinophils/100 WBC (Bld) 1.4 % Normal [facility] Comment on above: Performed By: #### C BCA, CMP, 17097-7, THYR #### [facility] ([id number]) [address] [place] [address] 87257 #### 67609-4, 2088-06 #### [facility] ([id number]) [address] [place] [address], [facility] [address] [place] [address] Erythrocyte distribution width (RBC) [Ratio] 14.4 % Normal 11.5-15.0 [facility] Comment on above: Performed By: #### C BCA, CMP, 75720-7, THYR #### [facility] ([id number]) [address] [place] [address] 53299 #### 18544-3, 2088-06 #### [facility] ([id number]) [address] [place] [address], [address] [place] [address] Hematocrit (Bld) [Volume fraction] 34.1 % Low 35-47 [facility] Comment on above: Performed By: #### C BCA, CMP, 61705-6, THYR #### [facility] ([id number]) [address] [place] [address] #### 12834-6, 2088-06 #### [facility] ([id number]) [address], [address] [place] [address] Hemoglobin (Bld) [Mass/Vol] 11.4 g/dL Low 11.7-15.5 [facility] Comment on above: Performed By: #### C BCA, CMP, 16080-4, THYR #### [facility] ([id number]) [address] [place] [address] 33707 #### 45990-7, 2088-06 #### [facility] ([id number]) [address], [address] [place] [address] Lymphocytes (Bld) [#/Vol] 1.4 10*3/uL Normal 1.0-3.5 [facility] Comment on above: Performed By: #### C BCA, CMP, 12597-0, THYR #### [facility] ([id number]) [address] [place] [address] 15394 #### 58832-6, 2088-06 #### [facility] ([id number]) [address], [address] [place] [address] Lymphocytes/100 WBC (Bld) 13.2 % Normal [facility] Comment on above: Performed By: #### Teresa BCA, CMP, 51126-9, THYR #### [facility] ([id number]) [address] [place] [address] 97640 #### 83705-0, 2088-06 #### [facility] ([id number]) [address], [address] [place] [address] MCH (RBC) [Entitic mass] 26.5 pg Low 27-34 [facility] Comment on above: Performed By: #### C BCA, CMP, 07608-3, THYR #### [facility] ([id number]) [address] [place] [address] 21381 #### 89793-4, 2088-06 #### [facility] ([id number]) [address], [address] [place] [address] MCHC (RBC) [Mass/Vol] 33.4 g/dL Normal 32-36 [facility] Comment on above: Performed By: #### C BCA, CMP, 52947-1, THYR #### [facility] ([id number]) [address] [place] [address] 80251 #### 77109-2, 2088-06 #### [facility] ([id number]) [address], [address] [place] [address] MCV (RBC) [Entitic vol] 79 fL Low 80-100 [facility] Comment on above: Performed By: #### C BCA, CMP, 41761-5, THYR #### [facility] ([id number]) [address] [place] [address] 34724 #### 87866-1, 2088-06 #### [facility] ([id number]) [address], [address] [place] [address] Monocytes (Bld) [#/Vol] 0.6 10*3/uL Normal 0-0.9 [facility] Comment on above: Performed By: #### C BCA, CMP, 09923-3, THYR #### [facility] ([id number]) [address] [place] [address] 62131 #### 80594-2, 2088-06 #### [facility] ([id number]) [address], [address] [place] [address] Monocytes/100 WBC (Bld) 5.5 % Normal [facility] Comment on above: Performed By: #### C BCA, CMP, 89391-2, THYR #### [facility] ([id number]) [address] [place] [address] 31480 #### 68402-5, 2088-06 #### [facility] ([id number]) [address], [address] [place] [address] Neutrophils/100 WBC (Bld) 79.1 % Normal [facility] Comment on above: Performed By: #### C BCA, CMP, 77222-3, THYR #### [facility] ([id number]) [address] [place] [address] 43265 #### 92451-2, 2088-06 #### [facility] ([id number]) [address] [facility], [address] [place] [address] Platelet mean volume (Bld) [Entitic vol] 8.2 fL Normal 7-12 [facility] Comment on above: Performed By: #### C BCA, CMP, 59506-2, THYR #### [facility] ([id number]) [address] [place] [address] 07081 #### 07209-3, 2088-06 #### [facility] ([id number]) [address], [address] [place] [address] Platelets (Bld) [#/Vol] 346 10*3/uL Normal 150-450 [facility] Comment on above: Performed By: #### C BCA, CMP, 25985-0, THYR #### [facility] ([id number]) [address] [place] [address] 33948 #### 47359-7, 2088-06 #### [facility] ([id number]) [address], [address] [place] [address] RBC COUNT 4.29 X10E12/L Normal 3.80-5.20 [facility] Comment on above: Performed By: #### C BCA, CMP, 35271-5, THYR #### [facility] ([id number]) [address] [place] [address] 95068 #### 35860-5, 2088-06 #### [facility] ([id number]) [address], [address] [place] [address] WBC (Bld) [#/Vol] 10.4 10*3/uL Normal 4.0-11.0 [facility] Comment on above: Performed By: #### C BCA, CMP, 35977-4, THYR #### [facility] ([id number]) [address] [place] [address] 52235 #### 30561-2, 2088-06 #### [facility] ([id number]) [address], [address] [place] [address] COMPREHENSIVE METABOLIC PANE [facility] 11-20-2023 Albumin [Mass/Vol] 3.7 g/dL Normal 3.2-5.3 [facility] Comment on above: Performed By: #### C BCA, CMP, 56067-1, THYR #### [facility] ([id number]) [address] [place] [address] 92147 #### 05720-5, 2088-06 #### [facility] ([id number]) [address], [address] [place] [address] ALP [Catalytic activity/Vol] 121 U/L Normal 39-130 [facility] Comment on above: Performed By: #### C BCA, CMP, 72251-2, THYR #### [facility] ([id number]) [address] [place] [address] 45856 #### 38091-1, 2088-06 #### [facility] ([id number]) [address], [address] [place] [address] ALT [Catalytic activity/Vol] 12 U/L Normal 0-31 [facility] Comment on above: Performed By: #### C BCA, CMP, 02385-3, THYR #### [facility] ([id number]) [address] [place] [address] 09511 #### 69466-4, 2088-06 #### [facility] ([id number]) [address] [facility], [address] [place] [address] Anion gap [Moles/Vol] 9 mmol/L Normal 5-15 [facility] Comment on above: Performed By: #### C BCA, CMP, 92301-7, THYR #### [facility] ([id number]) [address] [place] [address] 53541 #### 56720-8, 2088-06 #### [facility] ([id number]) [address] [facility], [address] [place] [address] AST [Catalytic activity/Vol] 16 U/L Normal 0-41 [facility] Comment on above: Performed By: #### C BCA, CMP, 12039-1, THYR #### [facility] ([id number]) [address] [place] [address] 56252 #### 91625-0, 2088-06 #### [facility] ([id number]) [address] [facility], [address] [place] [address] Bilirubin [Mass/Vol] 0.4 mg/dL Normal 0.3-1.2 [facility] Comment on above: Performed By: #### C BCA, CMP, 95542-3, THYR #### [facility] ([id number]) [address] [place] [address] 06968 #### 14427-6, 2088-06 #### [facility] ([id number]) [address] [facility], [address] [place] [address] Calcium [Mass/Vol] 9.3 mg/dL Normal 8.5-10.5 [facility] Comment on above: Performed By: #### C BCA, CMP, 69984-3, THYR #### [facility] ([id number]) [address] [place] [address] 87908 #### 84752-1, 2088-06 #### [facility] ([id number]) [address] [facility], [address] [place] [address] Chloride [Moles/Vol] 101 mmol/L Normal 98-109 [facility] Comment on above: Performed By: #### C BCA, CMP, 73950-9, THYR #### [facility] ([id number]) [address] [place] [address] 02900 #### 02017-2, 2088-06 #### [facility] ([id number]) [address] [facility], [address] [place] [address] CO2 [Moles/Vol] 23 mmol/L Normal 22-32 [facility] Comment on above: Performed By: #### C BCA, CMP, 37409-2, THYR #### [facility] ([id number]) [address] [place] [address] 89717 #### 34666-8, 2088-06 #### [facility] ([id number]) [address] [facility], [address] [place] [address] Creatinine [Mass/Vol] 2.20 mg/dL High 0.40-1.00 [facility] Comment on above: Result Comment: METH OD TRACEABLE TO IDMS STANDARD Performed By: #### C BCA, CMP, 47860-0, THYR #### [facility] ([id number]) [address] [place] [address] 23236 #### 56126-0, 2089-1 #### [facility] ([id number]) [address], [address] [place] [address] GFR/1.73 sq M.predicted among non-blacks MDRD (S/P/Bld) [Vol rate/Area] 25 mL/min/{1.73_m2} Low >59 [facility] Comment on above: Result Comment: Reported eGFR is based on the CKD-EPI 2020 equation that does not use a race coefficient. Performed By: #### C MARQUES, CMP, 69761-3, THYR #### [facility] ([id number]) [address] [place] [address] 37878 #### 36430-7, 2088-06 #### [facility] ([id number]) [address], [address] [place] [address] Glucose [Mass/Vol] 148 mg/dL High 65-99 [facility] Comment on above: Performed By: #### C BCA, CMP, 82150-9, THYR #### [facility] ([id number]) [address] [place] [address] 14338 #### 95780-7, 2088-06 #### [facility] ([id number]) [address], [address] [place] [address] Potassium [Moles/Vol] 4.1 mmol/L Normal 3.5-5.0 [facility] Comment on above: Performed By: #### C BCA, CMP, 30902-2, THYR #### [facility] ([id number]) [address] [place] [address] 24089 #### 04356-4, 2088-06 #### [facility] ([id number]) [address], [address] [place] [address] Protein [Mass/Vol] 7.9 g/dL Normal 6.0-8.0 [facility] Comment on above: Performed By: #### C BCA, CMP, 17854-0, THYR #### [facility] ([id number]) [address] [place] [address] 36366 #### 18534-6, 2088-06 #### [facility] ([id number]) [address], [address] [place] [address] Sodium [Moles/Vol] 133 mmol/L Low 134-146 [facility] Comment on above: Performed By: #### C BCA, CMP, 79118-2, THYR #### [facility] ([id number]) [address] [place] [address] 05061 #### 19120-9, 2088-06 #### [facility] ([id number]) [address] [facility], [address] [place] [address] Urea nitrogen [Mass/Vol] 38 mg/dL High 5-27 [facility] Comment on above: Performed By: #### C BCA, CMP, 76980-0, THYR #### [facility] ([id number]) [address] [place] [address] 26621 #### 88781-5, 2088-06 #### [facility] ([id number]) [address] [facility], [address] [place] [address] LIPASEon 11-20-2023 Lipase [Catalytic activity/Vol] 35 U/L Normal 17-40 [facility] Comment on above: Performed By: #### C BCA, CMP, 24592-5, THYR #### [facility] ([id number]) [address] [place] [address] 75764 #### 74474-7, 2088-06 #### [facility] ([id number]) [address], [address] [place] [address] Lactate (P brendon) [Moles/Vol]o n 11-20-2023 LACTATE W/REFLEX 1.6 mmol/L Normal 0.4-2.0 [facility] Comment on above: Result Comment: Result did not trigger repeat Lactate, re-order if needed. Performed By: #### C MARQUES CMP, 19304-2, THYR #### [facility] ([id number]) [address] [place] [address] 83767 #### 46418-6, 2088-06 #### [facility] ([id number]) [address], [address] [place] [address] Natriuretic peptide B [Mass/ Vol]on 11-20-2023 Natriuretic peptide B (Bld) [Mass/Vol] 132 pg/mL High <100.0 [facility] Comment on above: Performed By: #### C MARQUES CMP, 04797-3, THYR #### [facility] ([id number]) [address] [place] [address] 27257 #### 47964-3, 2088-06 #### [facility] ([id number]) [address], [address] [place] [address] Troponin I.cardiac High sens itivity method [Mass/Vol]on 11-20-2023 1 HOUR TROP I, HIGH SENSITIVITY 15 ng/L Normal <16 [facility] Comment on above: Performed By: #### C MARQUES CMP, 75501-1, THYR #### [facility] ([id number]) [address] [place] [address] 84028 #### 07380-1, 2088-06 #### [facility] ([id number]) [address], [address] [place] [address] TROPONIN I, HIGH SENSITIVITY 14 ng/L Normal <16 [facility] Comment on above: Performed By: #### C BCA, CMP, 43393-1, THYR #### [facility] ([id number]) [address] [place] [address] 10147 #### 06019-8, 2088-06 #### [facility] ([id number]) [address], [address] [place] [address] CBC AND AUTO DIFFon 07-26-19 24 ABSOLUTE BASOPHIL 0.1 X10E9/L Normal 0.0-0.2 [facility] Comment on above: Performed By: #### C BCA, CMP, 76071-4, THYR #### [facility] ([id number]) [address] [place] [address] 73611 #### 24073-4, 2088-06 #### [facility] ([id number]) [address] [facility], [address] [place] [address] ABSOLUTE NEUTROPHIL 5.4 X10E9/L Normal 1.5-6.6 [facility] Comment on above: Performed By: #### C BCA, CMP, 71904-6, THYR #### [facility] ([id number]) [address] [place] [address] 36415 #### 24166-6, 2088-06 #### [facility] ([id number]) [address] [facility], [address] [place] [address] Basophils/100 WBC (Bld) 0.8 % Normal [facility] Comment on above: Performed By: #### C BCA, CMP, 17048-4, THYR #### [facility] ([id number]) [address] [place] [address] 74165 #### 64154-2, 2088-06 #### [facility] ([id number]) [address] [facility], [address] [place] [address] Eosinophils (Bld) [#/Vol] 0.3 10*3/uL Normal 0.0-0.4 [facility] Comment on above: Performed By: #### C BCA, CMP, 88787-7, THYR #### [facility] ([id number]) [address] [place] [address] 53009 #### 32916-5, 2088-06 #### [facility] ([id number]) [address], [address] [place] [address] Eosinophils/100 WBC (Bld) 3.7 % Normal [facility] Comment on above: Performed By: #### C MARQUES, CMP, 68078-2, THYR #### [facility] ([id number]) [address] [place] [address] 62644 #### 85889-7, 2088-06 #### [facility] ([id number]) [address], [address] [place] [address] Erythrocyte distribution width (RBC) [Ratio] 14.6 % Normal 11.5-15.0 [facility] Comment on above: Performed By: #### C MARQUES, CMP, 63058-3, THYR #### [facility] ([id number]) [address] [place] [address] 91295 #### 91562-4, 2088-06 #### [facility] ([id number]) [address], [address] [place] [address] Hematocrit (Bld) [Volume fraction] 31.9 % Low 35-47 [facility] Comment on above: Performed By: #### C MARQUES, CMP, 91319-0, THYR #### [facility] ([id number]) [address] [place] [address] 87302 #### 28716-3, 2088-06 #### [facility] ([id number]) [address], [address] [place] [address] Hemoglobin (Bld) [Mass/Vol] 10.9 g/dL Low 11.7-15.5 [facility] Comment on above: Performed By: #### C MARQUES, CMP, 24124-7, THYR #### [facility] ([id number]) [address] [place] [address] 61457 #### 20456-5, 2088-06 #### [facility] ([id number]) [address], [address] [place] [address] Lymphocytes (Bld) [#/Vol] 2.6 10*3/uL Normal 1.0-3.5 [facility] Comment on above: Performed By: #### C BCA, CMP, 93936-1, THYR #### [facility] ([id number]) [address] [place] [address] 41572 #### 28085-7, 2088-06 #### [facility] ([id number]) [address], [address] [place] [address] Lymphocytes/100 WBC (Bld) 28.6 % Normal [facility] Comment on above: Performed By: #### C BCA, CMP, 81582-5, THYR #### [facility] ([id number]) [address] [place] [address] 95768 #### 58107-8, 2088-06 #### [facility] ([id number]) [address], [address] [place] [address] MCH (RBC) [Entitic mass] 27.4 pg Normal 27-34 [facility] Comment on above: Performed By: #### C BCA, CMP, 66782-3, THYR #### [facility] ([id number]) [address] [place] [address] 97872 #### 73457-9, 2088-06 #### [facility] ([id number]) [address], [address] [place] [address] MCHC (RBC) [Mass/Vol] 34.2 g/dL Normal 32-36 [facility] Comment on above: Performed By: #### C BCA, CMP, 10447-9, THYR #### [facility] ([id number]) [address] [place] [address] 32800 #### 34492-9, 2088-06 #### [facility] ([id number]) [address], [address] [place] [address] MCV (RBC) [Entitic vol] 80 fL Normal 80-100 [facility] Comment on above: Performed By: #### C BCA, CMP, 16161-5, THYR #### [facility] ([id number]) [address] [place] [address] 33291 #### 19051-2, 2088-06 #### [facility] ([id number]) [address], [address] [place] [address] Monocytes (Bld) [#/Vol] 0.8 10*3/uL Normal 0-0.9 [facility] Comment on above: Performed By: #### C BCA, CMP, 78421-2, THYR #### [facility] ([id number]) [address] [place] [address] 55556 #### 24539-8, 2088-06 #### [facility] ([id number]) [address], [address] [place] [address] Monocytes/100 WBC (Bld) 8.1 % Normal [facility] Comment on above: Performed By: #### C BCA, CMP, 10780-8, THYR #### [facility] ([id number]) [address] [place] [address] 44121 #### 89958-5, 2088-06 #### [facility] ([id number]) [address], [address] [place] [address] Neutrophils/100 WBC (Bld) 58.8 % Normal [facility] Comment on above: Performed By: #### C BCA, CMP, 18399-7, THYR #### [facility] ([id number]) [address] [place] [address] 47338 #### 67091-3, 2088-06 #### [facility] ([id number]) [address], [address] [place] [address] Platelet mean volume (Bld) [Entitic vol] 8.3 fL Normal 7-12 [facility] Comment on above: Performed By: #### C BCA, CMP, 36370-2, THYR #### [facility] ([id number]) [address] [place] [address] #### 77976-7, 2088-06 #### [facility] ([id number]) [address] [facility], [address] [place] [address] Platelets (Bld) [#/Vol] 271 10*3/uL Normal 150-450 [facility] Comment on above: Performed By: #### Teresa BCA, CMP, 97819-0, THYR #### [facility] ([id number]) [address] [place] [address] #### 81043-8, 2088-06 #### [facility] ([id number]) [address], [address] [place] [address] RBC COUNT 3.98 X10E12/L Normal 3.80-5.20 [facility] Comment on above: Performed By: #### C BCA, CMP, 85819-8, THYR #### [facility] ([id number]) [address] [place] [address] #### 46353-8, 2088-06 #### [facility] ([id number]) [address] [facility], [address] [place] [address] WBC (Bld) [#/Vol] 9.2 10*3/uL Normal 4.0-11.0 [facility] Comment on above: Performed By: #### C BCA, CMP, 97784-5, THYR #### [facility] ([id number]) [address] [place] [address] #### 34688-0, 2088-06 #### [facility] ([id number]) [address] [place] [address], [address] [place] [address] COMPREHENSIVE METABOLIC PANE Ace 07-26-2023 Albumin [Mass/Vol] 3.2 g/dL Normal 3.2-5.3 [facility] Comment on above: Performed By: #### C BCA, CMP, 19490-1, THYR #### [facility] ([id number]) [address] [place] [address] #### 90464-4, 2088-06 #### [facility] ([id number]) [address] [place] [address], [address] [place] [address] ALP [Catalytic activity/Vol] 105 U/L Normal 39-130 [facility] Comment on above: Performed By: #### C BCA, CMP, 97903-0, THYR #### [facility] ([id number]) [address] [place] [address] #### 80720-0, 2088-06 #### [facility] ([id number]) [address] [place] [address], [address] [place] [address] ALT [Catalytic activity/Vol] 10 U/L Normal 0-31 [facility] Comment on above: Performed By: #### C BCA, CMP, 59230-6, THYR #### [facility] ([id number]) [address] [place] [address] #### 99339-8, 2088-06 #### [facility] ([id number]) [address] [facility], [address] [place] [address] Anion gap [Moles/Vol] 12 mmol/L Normal 5-15 [facility] Comment on above: Performed By: #### C BCA, CMP, 01912-0, THYR #### [facility] ([id number]) [address] [place] [address]4798 #### 33999-3, 2088-06 #### [facility] ([id number]) [address] [facility], [address] [place] [address] AST [Catalytic activity/Vol] 14 U/L Normal 0-41 [facility] Comment on above: Performed By: #### C BCA, CMP, 32751-2, THYR #### [facility] ([id number]) [address] [place] [address] #### 71109-7, 2088-06 #### [facility] ([id number]) [address] [facility], [address] [place] [address] Bilirubin [Mass/Vol] 0.4 mg/dL Normal 0.3-1.2 [facility] Comment on above: Performed By: #### C BCA, CMP, 00213-5, THYR #### [facility] ([id number]) [address] [place] [address] #### 09289-7, 2088-06 #### [facility] ([id number]) [address] [facility], [address] [place] [address] Calcium [Mass/Vol] 9.0 mg/dL Normal 8.5-10.5 [facility] Comment on above: Performed By: #### C BCA, CMP, 44090-0, THYR #### [facility] ([id number]) [address] [place] [address] 65241 #### 51553-5, 2088-06 #### [facility] ([id number]) [address] [facility], [address] [place] [address] Chloride [Moles/Vol] 96 mmol/L Low 98-109 [facility] Comment on above: Performed By: #### C BCA, CMP, 55507-6, THYR #### [facility] ([id number]) [address] [place] [address] 64547 #### 53113-3, 2088-06 #### [facility] ([id number]) [address] [facility], [address] [place] [address] CO2 [Moles/Vol] 22 mmol/L Normal 22-32 [facility] Comment on above: Performed By: #### C BCA, CMP, 40910-2, THYR #### [facility] ([id number]) [address] [place] [address] 98307 #### 47268-9, 2088-06 #### [facility] ([id number]) [address] [facility], [address] [place] [address] Creatinine [Mass/Vol] 2.38 mg/dL High 0.40-1.00 [facility] Comment on above: Result Comment: METH OD TRACEABLE TO IDMS STANDARD Performed By: #### C BCA, CMP, 33348-9, THYR #### [facility] ([id number]) [address] [place] [address] 01100 #### 26688-2, 2088-06 #### [facility] ([id number]) [address] [facility], [address] [place] [address] GFR/1.73 sq M.predicted among non-blacks MDRD (S/P/Bld) [Vol rate/Area] 23 mL/min/{1.73_m2} Low >59 [facility] Comment on above: Result Comment: Reported eGFR is based on the CKD-EPI 2020 equation that does not use a race coefficient. Performed By: #### C BCA, CMP, 96806-3, THYR #### [facility] ([id number]) [address] [place] [address] 26729 #### 40959-4, 2088-06 #### [facility] ([id number]) [address], [address] [place] [address] Glucose [Mass/Vol] 116 mg/dL High 65-99 [facility] Comment on above: Performed By: #### C BCA, CMP, 05215-4, THYR #### [facility] ([id number]) [address] [place] [address] 34694 #### 25622-4, 2088-06 #### [facility] ([id number]) [address], [address] [place] [address] Potassium [Moles/Vol] 3.3 mmol/L Low 3.5-5.0 [facility] Comment on above: Performed By: #### C BCA, CMP, 73437-9, THYR #### [facility] ([id number]) [address] [place] [address] 71726 #### 61766-5, 2088-06 #### [facility] ([id number]) [address], [address] [place] [address] Protein [Mass/Vol] 7.0 g/dL Normal 6.0-8.0 [facility] Comment on above: Performed By: #### C BCA, CMP, 35333-6, THYR #### [facility] ([id number]) [address] [place] [address] 49646 #### 42725-3, 2088-06 #### [facility] ([id number]) [address], [address] [place] [address] Sodium [Moles/Vol] 130 mmol/L Low 134-146 [facility] Comment on above: Performed By: #### C NIKKY MOHAN, 87817-1, THYR #### [facility] ([id number]) [address] [place] [address] 47595 #### 38734-3, 2088-06 #### [facility] ([id number]) [address], [address] [place] [address] Urea nitrogen [Mass/Vol] 43 mg/dL High 5-23 [facility] Comment on above: Performed By: #### C NIKKY MOHAN, 66071-0, THYR #### [facility] ([id number]) [address] [place] [address] 26041 #### 37042-5, 2088-06 #### [facility] ([id number]) [address], [address] [place] [address] Glucose Glucometer (BldC) [M ass/Vol]on 07-26-2023 Glucose [Mass/Vol] 174 mg/dL High 65-99 [facility] MAGNESIUMon 07-26-2023 Magnesium [Mass/Vol] 1.9 mg/dL Normal 1.8-2.6 [facility] Comment on above: Performed By: #### C MARQUES, CMP, 46290-8, THYR #### [facility] ([id number]) [address] [place] [address] 59847 #### 14946-8, 2088-06 #### [facility] ([id number]) [address], [address] [place] [address] CBC AND AUTO DIFFon 07-25-19 24 ABSOLUTE BASOPHIL 0.1 X10E9/L Normal 0.0-0.2 [facility] Comment on above: Performed By: #### C MARQUES, CMP, 54416-6, THYR #### [facility] ([id number]) [address] [place] [address] 94653 #### 70829-1, 2088-06 #### [facility] ([id number]) [address] [place] [address], [address] [place] [address] ABSOLUTE NEUTROPHIL 6.6 X10E9/L Normal 1.5-6.6 [facility] Comment on above: Performed By: #### C BCA, CMP, 09983-1, THYR #### [facility] ([id number]) [address] [place] [address] 11255 #### 57581-6, 2088-06 #### [facility] ([id number]) [address] [place] [address], [address] [place] [address] Basophils/100 WBC (Bld) 0.7 % Normal [facility] Comment on above: Performed By: #### C BCA, CMP, 07694-2, THYR #### [facility] ([id number]) [address] [place] [address] 67366 #### 35424-5, 2088-06 #### [facility] ([id number]) [address] [place] [address], [address] [place] [address] Eosinophils (Bld) [#/Vol] 0.3 10*3/uL Normal 0.0-0.4 [facility] Comment on above: Performed By: #### C BCA, CMP, 00555-6, THYR #### [facility] ([id number]) [address] [place] [address] 41083 #### 28042-4, 2088-06 #### [facility] ([id number]) [address] [place] [address], [address] [place] [address] Eosinophils/100 WBC (Bld) 2.8 % Normal [facility] Comment on above: Performed By: #### C BCA, CMP, 61647-9, THYR #### [facility] ([id number]) [address] [place] [address] 15727 #### 00458-6, 2088-06 #### [facility] ([id number]) [address], [address] [place] [address] Erythrocyte distribution width (RBC) [Ratio] 14.4 % Normal 11.5-15.0 [facility] Comment on above: Performed By: #### C BCA, CMP, 51507-4, THYR #### [facility] ([id number]) [address] [place] [address] 62027 #### 59642-9, 2088-06 #### [facility] ([id number]) [address] [facility], [address] [place] [address] Hematocrit (Bld) [Volume fraction] 36.8 % Normal 35-47 [facility] Comment on above: Performed By: #### C BCA, CMP, 44754-1, THYR #### [facility] ([id number]) [address] [place] [address] 71448 #### 21379-0, 2088-06 #### [facility] ([id number]) [address], [address] [place] [address] Hemoglobin (Bld) [Mass/Vol] 12.5 g/dL Normal 11.7-15.5 [facility] Comment on above: Performed By: #### C BCA, CMP, 43779-2, THYR #### [facility] ([id number]) [address] [place] [address] 01299 #### 17749-8, 2088-06 #### [facility] ([id number]) [address], [address] [place] [address] Lymphocytes (Bld) [#/Vol] 2.1 10*3/uL Normal 1.0-3.5 [facility] Comment on above: Performed By: #### C BCA, CMP, 45367-9, THYR #### [facility] ([id number]) [address] [place] [address] 80300 #### 42393-4, 2088-06 #### [facility] ([id number]) [address], [address] [place] [address] Lymphocytes/100 WBC (Bld) 20.8 % Normal [facility] Comment on above: Performed By: #### C BCA, CMP, 10403-7, THYR #### [facility] ([id number]) [address] [place] [address] 55029 #### 92432-2, 2088-06 #### [facility] ([id number]) [address], [address] [place] [address] MCH (RBC) [Entitic mass] 27.3 pg Normal 27-34 [facility] Comment on above: Performed By: #### C BCA, CMP, 80507-8, THYR #### [facility] ([id number]) [address] [place] [address] 02101 #### 17495-8, 2088-06 #### [facility] ([id number]) [address], [address] [place] [address] MCHC (RBC) [Mass/Vol] 34.0 g/dL Normal 32-36 [facility] Comment on above: Performed By: #### C BCA, CMP, 61937-4, THYR #### [facility] ([id number]) [address] [place] [address] 30239 #### 63564-1, 2088-06 #### [facility] ([id number]) [address], [address] [place] [address] MCV (RBC) [Entitic vol] 80 fL Normal 80-100 [facility] Comment on above: Performed By: #### C BCA, CMP, 63394-0, THYR #### [facility] ([id number]) [address] [place] [address] 99829 #### 04375-3, 2088-06 #### [facility] ([id number]) [address] [place] [address] Monocytes (Bld) [#/Vol] 0.9 10*3/uL Normal 0-0.9 [facility] Comment on above: Performed By: #### C BCA, CMP, 49693-3, THYR #### [facility] ([id number]) [address] [place] [address] 37445 #### 72820-8, 2088-06 #### [facility] ([id number]) [address], [address] [place] [address] Monocytes/100 WBC (Bld) 8.8 % Normal [facility] Comment on above: Performed By: #### C BCA, CMP, 80598-9, THYR #### [facility] ([id number]) [address] [place] [address] 27394 #### 38662-3, 2088-06 #### [facility] ([id number]) [address], [address] [place] [address] Neutrophils/100 WBC (Bld) 66.9 % Normal [facility] Comment on above: Performed By: #### C BCA, CMP, 41433-4, THYR #### [facility] ([id number]) [address] [place] [address] 79475 #### 65654-5, 2088-06 #### [facility] ([id number]) [address], [address] [place] [address] Platelet mean volume (Bld) [Entitic vol] 8.5 fL Normal 7-12 [facility] Comment on above: Performed By: #### C BCA, CMP, 92564-1, THYR #### [facility] ([id number]) [address] [place] [address] 31624 #### 85125-0, 2088-06 #### [facility] ([id number]) [address] [facility], [address] [place] [address] Platelets (Bld) [#/Vol] 248 10*3/uL Normal 150-450 [facility] Comment on above: Performed By: #### C BCA, CMP, 31936-7, THYR #### [facility] ([id number]) [address] [place] [address] 58383 #### 08123-7, 2088-06 #### [facility] ([id number]) [address] [facility] [facility] [address] [place] [address] RBC COUNT 4.58 X10E12/L Normal 3.80-5.20 [facility] Comment on above: Performed By: #### C BCA, CMP, 98689-3, THYR #### [facility] ([id number]) [address] [place] [address] 29621 #### 80189-1, 2088-06 #### [facility] ([id number]) [address] [facility], [address] [place] [address] WBC (Bld) [#/Vol] 9.9 10*3/uL Normal 4.0-11.0 [facility] Comment on above: Performed By: #### C BCA, CMP, 21745-3, THYR #### [facility] ([id number]) [address] [place] [address] 91496 #### 41377-6, 2088-06 #### [facility] ([id number]) [address] [facility], [address] [place] [address] COMPREHENSIVE METABOLIC PANE Ace 07-25-2023 Albumin [Mass/Vol] 3.7 g/dL Normal 3.2-5.3 [facility] Comment on above: Performed By: #### C BCA, CMP, 73507-6, THYR #### [facility] ([id number]) [address] [place] [address] 72733 #### 23981-2, 2088-06 #### [facility] ([id number]) [address] [facility], [address] [place] [address] ALP [Catalytic activity/Vol] 119 U/L Normal 39-130 [facility] Comment on above: Performed By: #### C BCA, CMP, 03793-4, THYR #### [facility] ([id number]) [address] [place] [address] 26458 #### 32470-6, 2088-06 #### [facility] ([id number]) [address] [facility], [address] [place] [address] ALT [Catalytic activity/Vol] 14 U/L Normal 0-31 [facility] Comment on above: Performed By: #### C BCA, CMP, 39823-3, THYR #### [facility] ([id number]) [address] [place] [address] 95395 #### 94308-8, 2088-06 #### [facility] ([id number]) [address] [facility], [address] [place] [address] Anion gap [Moles/Vol] 13 mmol/L Normal 5-15 [facility] Comment on above: Performed By: #### C BCA, CMP, 03027-1, THYR #### [facility] ([id number]) [address] [place] [address] 51005 #### 51711-4, 2089-1 #### [facility] ([id number]) [address], [address] [place] [address] AST [Catalytic activity/Vol] 20 U/L Normal 0-41 [facility] Comment on above: Performed By: #### C BCA, CMP, 97889-6, THYR #### [facility] ([id number]) [address] [place] [address] 09792 #### 97864-6, 2088-06 #### [facility] ([id number]) [address] [facility], [address] [place] [address] Bilirubin [Mass/Vol] 0.7 mg/dL Normal 0.3-1.2 [facility] Comment on above: Performed By: #### C BCA, CMP, 05023-3, THYR #### [facility] ([id number]) [address] [place] [address] 32152 #### 22509-4, 2088-06 #### [facility] ([id number]) [address] [facility], [address] [place] [address] Calcium [Mass/Vol] 9.1 mg/dL Normal 8.5-10.5 [facility] Comment on above: Performed By: #### C BCA, CMP, 00179-2, THYR #### [facility] ([id number]) [address] [place] [address] 68469 #### 86810-3, 2088-06 #### [facility] ([id number]) [address], [address] [place] [address] Chloride [Moles/Vol] 97 mmol/L Low 98-109 [facility] Comment on above: Performed By: #### C BCA, CMP, 47599-9, THYR #### [facility] ([id number]) [address] [place] [address] 68247 #### 57892-4, 2088-06 #### [facility] ([id number]) [address], [address] [place] [address] CO2 [Moles/Vol] 21 mmol/L Low 22-32 [facility] Comment on above: Performed By: #### C MARQUES, CMP, 00149-2, THYR #### [facility] ([id number]) [address] [place] [address] 34018 #### 83411-6, 2088-06 #### [facility] ([id number]) [address], [address] [place] [address] Creatinine [Mass/Vol] 2.04 mg/dL High 0.40-1.00 [facility] Comment on above: Result Comment: METH OD TRACEABLE TO IDMS STANDARD Performed By: #### C MARQUES, CMP, 07075-1, THYR #### [facility] ([id number]) [address] [place] [address] 22937 #### 69568-4, 2088-06 #### [facility] ([id number]) [address], [address] [place] [address] GFR/1.73 sq M.predicted among non-blacks MDRD (S/P/Bld) [Vol rate/Area] 27 mL/min/{1.73_m2} Low >59 [facility] Comment on above: Result Comment: Reported eGFR is based on the CKD-EPI 1 equation that does not use a race coefficient. Performed By: #### C BCA, CMP, 88783-4, THYR #### [facility] ([id number]) [address] [place] [address] 78072 #### 80955-9, 2088-06 #### [facility] ([id number]) [address], [address] [place] [address] Glucose [Mass/Vol] 187 mg/dL High 65-99 [facility] Comment on above: Performed By: #### C BCA, CMP, 29368-8, THYR #### [facility] ([id number]) [address] [place] [address] 60502 #### 94308-4, 2088-06 #### [facility] ([id number]) [address], [address] [place] [address] Potassium [Moles/Vol] 3.5 mmol/L Normal 3.5-5.0 [facility] Comment on above: Performed By: #### C BCA, CMP, 40190-1, THYR #### [facility] ([id number]) [address] [place] [address] 06517 #### 31819-7, 2088-06 #### [facility] ([id number]) [address], [address] [place] [address] Protein [Mass/Vol] 7.9 g/dL Normal 6.0-8.0 [facility] Comment on above: Performed By: #### C BCA, CMP, 44193-7, THYR #### [facility] ([id number]) [address] [place] [address] 39359 #### 35650-6, 2088-06 #### [facility] ([id number]) [address], [address] [place] [address] Sodium [Moles/Vol] 131 mmol/L Low 134-146 [facility] Comment on above: Performed By: #### C BCA, CMP, 39584-5, THYR #### [facility] ([id number]) [address] [place] [address] 63261 #### 69844-7, 2088-06 #### [facility] ([id number]) [address], [address] [place] [address] Urea nitrogen [Mass/Vol] 34 mg/dL High 5-23 [facility] Comment on above: Performed By: #### C MARQUES, NIKKY, 88229-2, THYR #### [facility] ([id number]) [address] [place] [address] 12591 #### 45549-8, 2088-06 #### [facility] ([id number]) [address], [address] [place] [address] Glucose Glucometer (BldC) [M ass/Vol]on 07-25-2023 Glucose [Mass/Vol] 245 mg/dL High 65-99 [facility] Glucose [Mass/Vol] 183 mg/dL High 65-99 [facility] Glucose [Mass/Vol] 207 mg/dL High 65-99 [facility] MAGNESIUMon 07-25-2023 Magnesium [Mass/Vol] 2.3 mg/dL Normal 1.8-2.6 [facility] Comment on above: Performed By: #### C MARQUES, NIKKY, 21220-5, THYR #### [facility] ([id number]) [address] [place] [address] 65651 #### 20364-2, 2088-06 #### [facility] ([id number]) [address], [address] [place] [address] POTASSIUMon 07-25-2023 Potassium [Moles/Vol] 4.1 mmol/L Normal 3.5-5.0 [facility] Comment on above: Performed By: #### C MARQUES, CMP, 01444-1, THYR #### [facility] ([id number]) [address] [place] [address] 99460 #### 50481-7, 2088-06 #### [facility] ([id number]) [address], [address] [place] [address] CBC AND AUTO DIFFon 07-24-19 24 ABSOLUTE BASOPHIL 0.1 X10E9/L Normal 0.0-0.2 [facility] Comment on above: Performed By: #### C BCA, CMP, 03382-9, THYR #### [facility] ([id number]) [address] [place] [address] 26192 #### 81728-2, 2088-06 #### [facility] ([id number]) [address] [facility], [address] [place] [address] ABSOLUTE NEUTROPHIL 5.4 X10E9/L Normal 1.5-6.6 [facility] Comment on above: Performed By: #### C BCA, CMP, 07966-4, THYR #### [facility] ([id number]) [address] [place] [address] 63227 #### 37555-3, 2088-06 #### [facility] ([id number]) [address] [facility], [address] [place] [address] Basophils/100 WBC (Bld) 0.7 % Normal [facility] Comment on above: Performed By: #### C BCA, CMP, 93804-4, THYR #### [facility] ([id number]) [address] [place] [address] 02605 #### 31329-4, 2088-06 #### [facility] ([id number]) [address] [facility], [address] [place] [address] Eosinophils (Bld) [#/Vol] 0.2 10*3/uL Normal 0.0-0.4 [facility] Comment on above: Performed By: #### C BCA, CMP, 72861-4, THYR #### [facility] ([id number]) [address] [place] [address] 78162 #### 55093-9, 2088-06 #### [facility] ([id number]) [address] [facility], [address] [place] [address] Eosinophils/100 WBC (Bld) 2.7 % Normal [facility] Comment on above: Performed By: #### C NIKKY MOHAN, 42763-7, THYR #### [facility] ([id number]) [address] [place] [address] 02971 #### 95429-4, 2088-06 #### [facility] ([id number]) [address], [address] [place] [address] Erythrocyte distribution width (RBC) [Ratio] 14.3 % Normal 11.5-15.0 [facility] Comment on above: Performed By: #### C MARQUES CMP, 29629-4, THYR #### [facility] ([id number]) [address] [place] [address] 82201 #### 31724-2, 2088-06 #### [facility] ([id number]) [address], [address] [place] [address] Hematocrit (Bld) [Volume fraction] 35.1 % Normal 35-47 [facility] Comment on above: Performed By: #### Teresa MOHAN CMP, 76769-4, THYR #### [facility] ([id number]) [address] [place] [address] 73411 #### 62131-9, 2088-06 #### [facility] ([id number]) [address], [address] [place] [address] Hemoglobin (Bld) [Mass/Vol] 12.0 g/dL Normal 11.7-15.5 [facility] Comment on above: Performed By: #### Teresa MOHAN CMP, 91772-3, THYR #### [facility] ([id number]) [address] [place] [address] 79049 #### 88579-4, 2088-06 #### [facility] ([id number]) [address], [address] [place] [address] Lymphocytes (Bld) [#/Vol] 2.3 10*3/uL Normal 1.0-3.5 [facility] Comment on above: Performed By: #### C BCA, CMP, 55208-9, THYR #### [facility] ([id number]) [address] [place] [address] 63620 #### 17700-4, 2088-06 #### [facility] ([id number]) [address] [facility] [place] [address] Lymphocytes/100 WBC (Bld) 26.1 % Normal [facility] Comment on above: Performed By: #### C BCA, CMP, 70357-4, THYR #### [facility] ([id number]) [address] [place] [address]26 #### 71750-6, 2088-06 #### [facility] ([id number]) [address] [facility], [address] [place] [address] MCH (RBC) [Entitic mass] 27.2 pg Normal 27-34 [facility] Comment on above: Performed By: #### C BCA, CMP, 53747-4, THYR #### [facility] ([id number]) [address] [place] [address]2001 #### 29388-2, 2088-06 #### [facility] ([id number]) [address] [facility], [address] [place] [address] MCHC (RBC) [Mass/Vol] 34.2 g/dL Normal 32-36 [facility] Comment on above: Performed By: #### C BCA, CMP, 42545-8, THYR #### [facility] ([id number]) [address] [place] [address] #### 13146-9, 2088-06 #### [facility] ([id number]) [address], [address] [place] [address] MCV (RBC) [Entitic vol] 80 fL Normal 80-100 [facility] Comment on above: Performed By: #### C BCA, CMP, 61523-1, THYR #### [facility] ([id number]) [address] [place] [address] #### 54805-3, 2088-06 #### [facility] ([id number]) [address], [address] [place] [address] Monocytes (Bld) [#/Vol] 0.9 10*3/uL Normal 0-0.9 [facility] Comment on above: Performed By: #### C BCA, CMP, 35097-9, THYR #### [facility] ([id number]) [address] [place] [address] #### 29886-4, 2088-06 #### [facility] ([id number]) [address] [facility], [address] [place] [address] Monocytes/100 WBC (Bld) 9.8 % Normal [facility] Comment on above: Performed By: #### C BCA, CMP, 26967-8, THYR #### [facility] ([id number]) [address] [place] [address] 21265 #### 09171-0, 2088-06 #### [facility] ([id number]) [address], [address] [place] [address] Neutrophils/100 WBC (Bld) 60.7 % Normal [facility] Comment on above: Performed By: #### C BCA, CMP, 34422-7, THYR #### [facility] ([id number]) [address] [place] [address]1858 #### 60013-2, 2088-06 #### [facility] ([id number]) [address] [facility], [address] [place] [address] Platelet mean volume (Bld) [Entitic vol] 8.7 fL Normal 7-12 [facility] Comment on above: Performed By: #### C BCA, CMP, 86485-4, THYR #### [facility] ([id number]) [address] [place] [address]60 #### 57141-6, 2088-06 #### [facility] ([id number]) [facility], [address] [place] [address] Platelets (Bld) [#/Vol] 288 10*3/uL Normal 150-450 [facility] Comment on above: Performed By: #### C BCA, CMP, 75434-0, THYR #### [facility] ([id number]) [address] [place] [address]378 #### 06524-5, 2088-06 #### [facility] ([id number]) [address] [place] [address], [address] [place] [address] RBC COUNT 4.41 X10E12/L Normal 3.80-5.20 [facility] Comment on above: Performed By: #### C BCA, CMP, 18480-3, THYR #### [facility] ([id number]) [address] [place] [address]80 #### 28711-2, 2088-06 #### [facility] ([id number]) [address] [place] [address], [address] [place] [address] WBC (Bld) [#/Vol] 8.8 10*3/uL Normal 4.0-11.0 [facility] Comment on above: Performed By: #### C BCA, CMP, 32351-0, THYR #### [facility] ([id number]) [address] [place] [address] #### 14962-4, 2088-06 #### [facility] ([id number]) [address], [address] [place] [address] COMPREHENSIVE METABOLIC PANE Ace 07-24-2023 Albumin [Mass/Vol] 3.6 g/dL Normal 3.2-5.3 [facility] Comment on above: Performed By: #### C BCA, CMP, 79377-7, THYR #### [facility] ([id number]) [address] [place] [address] 37316 #### 32086-9, 2088-06 #### [facility] ([id number]) [address] [facility], [address] [place] [address] ALP [Catalytic activity/Vol] 120 U/L Normal 39-130 [facility] Comment on above: Performed By: #### C BCA, CMP, 96986-5, THYR #### [facility] ([id number]) [address] [place] [address] 74594 #### 08573-7, 2088-06 #### [facility] ([id number]) [address] [facility], [address] [place] [address] ALT [Catalytic activity/Vol] 11 U/L Normal 0-31 [facility] Comment on above: Performed By: #### C BCA, CMP, 07738-0, THYR #### [facility] ([id number]) [address] [place] [address] 24556 #### 91985-4, 2088-06 #### [facility] ([id number]) [address] [facility], [address] [place] [address] Anion gap [Moles/Vol] 11 mmol/L Normal 5-15 [facility] Comment on above: Performed By: #### C BCA, CMP, 76700-3, THYR #### [facility] ([id number]) [address] [place] [address] 25823 #### 29439-2, 2088-06 #### [facility] ([id number]) [address], [address] [place] [address] AST [Catalytic activity/Vol] 15 U/L Normal 0-41 [facility] Comment on above: Performed By: #### C BCA, CMP, 64413-0, THYR #### [facility] ([id number]) [address] [place] [address] 94242 #### 55721-0, 2088-06 #### [facility] ([id number]) [address] [facility], [address] [place] [address] Bilirubin [Mass/Vol] 0.5 mg/dL Normal 0.3-1.2 [facility] Comment on above: Performed By: #### C BCA, CMP, 61526-0, THYR #### [facility] ([id number]) [address] [place] [address] 42886 #### 61932-3, 2088-06 #### [facility] ([id number]) [address] [facility], [address] [place] [address] Calcium [Mass/Vol] 9.4 mg/dL Normal 8.5-10.5 [facility] Comment on above: Performed By: #### C BCA, CMP, 39613-0, THYR #### [facility] ([id number]) [address] [place] [address] 92165 #### 74392-1, 2088-06 #### [facility] ([id number]) [address], [address] [place] [address] Chloride [Moles/Vol] 101 mmol/L Normal 98-109 [facility] Comment on above: Performed By: #### C BCA, CMP, 86038-7, THYR #### [facility] ([id number]) [address] [place] [address] 73913 #### 66525-3, 2088-06 #### [facility] ([id number]) [address], [address] [place] [address] CO2 [Moles/Vol] 24 mmol/L Normal 22-32 [facility] Comment on above: Performed By: #### C BCA, CMP, 89899-0, THYR #### [facility] ([id number]) [address] [place] [address] 34297 #### 92135-3, 2088-06 #### [facility] ([id number]) [address], [address] [place] [address] Creatinine [Mass/Vol] 2.02 mg/dL High 0.40-1.00 [facility] Comment on above: Result Comment: METH OD TRACEABLE TO IDMS STANDARD Performed By: #### C BCA, CMP, 85126-5, THYR #### [facility] ([id number]) [address] [place] [address] 84722 #### 32913-0, 2088-06 #### [facility] ([id number]) [address], [address] [place] [address] GFR/1.73 sq M.predicted among non-blacks MDRD (S/P/Bld) [Vol rate/Area] 28 mL/min/{1.73_m2} Low >59 [facility] Comment on above: Result Comment: Reported eGFR is based on the CKD-EPI 2020 equation that does not use a race coefficient. Performed By: #### C BCA, CMP, 16634-7, THYR #### [facility] ([id number]) [address] [place] [address] 57829 #### 59436-5, 2088-06 #### [facility] ([id number]) [address], [address] [place] [address] Glucose [Mass/Vol] 68 mg/dL Normal 65-99 [facility] Comment on above: Performed By: #### C BCA, CMP, 10526-9, THYR #### [facility] ([id number]) [address] [place] [address] 67964 #### 67703-0, 2088-06 #### [facility] ([id number]) [address] [facility], [address] [place] [address] Potassium [Moles/Vol] 2.9 mmol/L Low 3.5-5.0 [facility] Comment on above: Performed By: #### C BCA, CMP, 45269-2, THYR #### [facility] ([id number]) [address] [place] [address] 02004 #### 18783-5, 2088-06 #### [facility] ([id number]) [address] [facility], [address] [place] [address] Protein [Mass/Vol] 7.9 g/dL Normal 6.0-8.0 [facility] Comment on above: Performed By: #### C BCA, CMP, 69478-1, THYR #### [facility] ([id number]) [address] [place] [address] 97265 #### 58016-4, 2088-06 #### [facility] ([id number]) [address] [facility], [address] [place] [address] Sodium [Moles/Vol] 136 mmol/L Normal 134-146 [facility] Comment on above: Performed By: #### C BCA, CMP, 07526-8, THYR #### [facility] ([id number]) [address] [place] [address] 80423 #### 28140-6, 2088-06 #### [facility] ([id number]) [address] [facility], [address] [place] [address] Urea nitrogen [Mass/Vol] 35 mg/dL High 5-23 [facility] Comment on above: Performed By: #### C NIKKY MOHAN, 68716-7, THYR #### [facility] ([id number]) [address] [place] [address] 16736 #### 58851-2, 2088-06 #### [facility] ([id number]) [address] [facility], [address] [place] [address] Glucose Glucometer (BldC) [M ass/Vol]on 07-24-2023 Glucose [Mass/Vol] 245 mg/dL High 65-99 [facility] Glucose [Mass/Vol] 204 mg/dL High 65-99 [facility] Glucose [Mass/Vol] 134 mg/dL High 65-99 [facility] MAGNESIUMon 07-24-2023 Magnesium [Mass/Vol] 2.6 mg/dL Normal 1.8-2.6 [facility] Comment on above: Performed By: #### C NIKKY MOHAN, 89363-3, THYR #### [facility] ([id number]) [address] [place] [address] 40165 #### 91639-9, 2088-06 #### [facility] ([id number]) [address] [facility], [address] [place] [address] Magnesium [Mass/Vol] 1.6 mg/dL Low 1.8-2.6 [facility] Comment on above: Performed By: #### C NIKKY MOHAN, 75346-5, THYR #### [facility] ([id number]) [address] [place] [address] 44368 #### 34617-1, 2088-06 #### [facility] ([id number]) [address], [address] [place] [address] POTASSIUMon 07-24-2023 Potassium [Moles/Vol] 3.9 mmol/L Normal 3.5-5.0 [facility] Comment on above: Performed By: #### C BCA, CMP, 18890-4, THYR #### [facility] ([id number]) [address] [place] [address] 65993 #### 83284-2, 2088-06 #### [facility] ([id number]) [address], [address] [place] [address] CBC AND AUTO DIFFon 07-23-19 ABSOLUTE BASOPHIL 0.1 X10E9/L Normal 0.0-0.2 [facility] Comment on above: Performed By: #### C BCA, CMP, 22085-4, THYR #### [facility] ([id number]) [address] [place] [address] 02369 #### 76946-6, 2088-06 #### [facility] ([id number]) [address] [facility], [address] [place] [address] ABSOLUTE NEUTROPHIL 7.1 X10E9/L High 1.5-6.6 [facility] Comment on above: Performed By: #### C BCA, CMP, 71873-0, THYR #### [facility] ([id number]) [address] [place] [address] 65634 #### 66490-7, 2088-06 #### [facility] ([id number]) [address], [address] [place] [address] Basophils/100 WBC (Bld) 0.9 % Normal [facility] Comment on above: Performed By: #### C BCA, CMP, 62761-7, THYR #### [facility] ([id number]) [address] [place] [address] [place] [address] #### 87664-0, 2088-06 #### [facility] ([id number]) [address] [place] [address], [facility] [address] [place] [address] Eosinophils (Bld) [#/Vol] 0.3 10*3/uL Normal 0.0-0.4 [facility] Comment on above: Performed By: #### C BCA, CMP, 35707-1, THYR #### [facility] ([id number]) [address] [place] [address] 80765 #### 77310-8, 2088-06 #### [facility] ([id number]) [address] [place] [address], [address] [address] Eosinophils/100 WBC (Bld) 2.5 % Normal [facility] Comment on above: Performed By: #### C BCA, CMP, 39087-6, THYR #### [facility] ([id number]) [address] [place] [address] 46708 #### 43797-6, 2088-06 #### [facility] ([id number]) [address] [place] [address], [facility] [address] [place] [address] Erythrocyte distribution width (RBC) [Ratio] 14.7 % Normal 11.5-15.0 [facility] Comment on above: Performed By: #### C BCA, CMP, 46933-4, THYR #### [facility] ([id number]) [address] [place] [address] 71150 #### 17085-6, 2088-06 #### [facility] ([id number]) [address] [place] [address], [address] [place] [address] Hematocrit (Bld) [Volume fraction] 39.8 % Normal 35-47 [facility] Comment on above: Performed By: #### C BCA, CMP, 73808-0, THYR #### [facility] ([id number]) [address] [place] [address] 87399 #### 45936-8, 2088-06 #### [facility] ([id number]) [address], [address] [place] [address] Hemoglobin (Bld) [Mass/Vol] 13.6 g/dL Normal 11.7-15.5 [facility] Comment on above: Performed By: #### C BCA, CMP, 96822-4, THYR #### [facility] ([id number]) [address] [place] [address] 23800 #### 26911-4, 2088-06 #### [facility] ([id number]) [address], [address] [place] [address] Lymphocytes (Bld) [#/Vol] 2.4 10*3/uL Normal 1.0-3.5 [facility] Comment on above: Performed By: #### C BCA, CMP, 38064-9, THYR #### [facility] ([id number]) [address] [place] [address] 40853 #### 11315-8, 2088-06 #### [facility] ([id number]) [address], [address] [place] [address] Lymphocytes/100 WBC (Bld) 21.8 % Normal [facility] Comment on above: Performed By: #### C BCA, CMP, 41212-7, THYR #### [facility] ([id number]) [address] [place] [address] 61546 #### 04708-9, 2088-06 #### [facility] ([id number]) [address], [address] [place] [address] MCH (RBC) [Entitic mass] 27.5 pg Normal 27-34 [facility] Comment on above: Performed By: #### C BCA, CMP, 82193-0, THYR #### [facility] ([id number]) [address] [place] [address] 35291 #### 64223-4, 2088-06 #### [facility] ([id number]) [address], [address] [place] [address] MCHC (RBC) [Mass/Vol] 34.2 g/dL Normal 32-36 [facility] Comment on above: Performed By: #### C BCA, CMP, 22829-2, THYR #### [facility] ([id number]) [address] [place] [address] 27339 #### 81881-6, 2088-06 #### [facility] ([id number]) [address], [address] [place] [address] MCV (RBC) [Entitic vol] 80 fL Normal 80-100 [facility] Comment on above: Performed By: #### C BCA, CMP, 55336-1, THYR #### [facility] ([id number]) [address] [place] [address] 37285 #### 85480-7, 2088-06 #### [facility] ([id number]) [address], [address] [place] [address] Monocytes (Bld) [#/Vol] 1.0 10*3/uL High 0-0.9 [facility] Comment on above: Performed By: #### C BCA, CMP, 54498-2, THYR #### [facility] ([id number]) [address] [place] [address] 60307 #### 51145-2, 2088-06 #### [facility] ([id number]) [address], [address] [place] [address] Monocytes/100 WBC (Bld) 8.8 % Normal [facility] Comment on above: Performed By: #### C BCA, CMP, 29073-1, THYR #### [facility] ([id number]) [address] [place] [address] 75338 #### 85937-9, 2088-06 #### [facility] ([id number]) [address], [address] [place] [address] Neutrophils/100 WBC (Bld) 66.0 % Normal [facility] Comment on above: Performed By: #### C BCA, CMP, 00483-1, THYR #### [facility] ([id number]) [address] [place] [address] 90537 #### 67021-4, 2088-06 #### [facility] ([id number]) [address], [address] [place] [address] Platelet mean volume (Bld) [Entitic vol] 8.1 fL Normal 7-12 [facility] Comment on above: Performed By: #### C BCA, CMP, 19499-3, THYR #### [facility] ([id number]) [address] [place] [address] 63961 #### 73644-8, 2088-06 #### [facility] ([id number]) [address], [address] [place] [address] Platelets (Bld) [#/Vol] 326 10*3/uL Normal 150-450 [facility] Comment on above: Performed By: #### C BCA, CMP, 34671-5, THYR #### [facility] ([id number]) [address] [place] [address] 75985 #### 40826-4, 2088-06 #### [facility] ([id number]) [address], [address] [place] [address] RBC COUNT 4.95 X10E12/L Normal 3.80-5.20 [facility] Comment on above: Performed By: #### C BCA, CMP, 05161-9, THYR #### [facility] ([id number]) [address] [place] [address] 88048 #### 67433-6, 2088-06 #### [facility] ([id number]) [address] [facility], [address] [place] [address] WBC (Bld) [#/Vol] 10.8 10*3/uL Normal 4.0-11.0 [facility] Comment on above: Performed By: #### C BCA, CMP, 58354-5, THYR #### [facility] ([id number]) [address] [place] [address] 37882 #### 30198-9, 2088-06 #### [facility] ([id number]) [address] [facility], [address] [place] [address] COMPREHENSIVE METABOLIC PANE Ace 07-23-2023 Albumin [Mass/Vol] 4.1 g/dL Normal 3.2-5.3 [facility] Comment on above: Performed By: #### C BCA, CMP, 49197-6, THYR #### [facility] ([id number]) [address] [place] [address] 48786 #### 54560-2, 2088-06 #### [facility] ([id number]) [address] [facility], [address] [place] [address] ALP [Catalytic activity/Vol] 133 U/L High 39-130 [facility] Comment on above: Performed By: #### C BCA, CMP, 14986-1, THYR #### [facility] ([id number]) [address] [place] [address] 69484 #### 35421-3, 2088-06 #### [facility] ([id number]) [address] [facility], [address] [place] [address] ALT [Catalytic activity/Vol] 12 U/L Normal 0-31 [facility] Comment on above: Performed By: #### C BCA, CMP, 53369-1, THYR #### [facility] ([id number]) [address] [place] [address] 69723 #### 30604-6, 2088-06 #### [facility] ([id number]) [address] [facility], [address] [place] [address] Anion gap [Moles/Vol] 13 mmol/L Normal 5-15 [facility] Comment on above: Performed By: #### C MARQUES CMP, 11389-2, THYR #### [facility] ([id number]) [address] [place] [address] 84565 #### 94108-6, 2088-06 #### [facility] ([id number]) [address] [facility], [address] [place] [address] AST [Catalytic activity/Vol] 18 U/L Normal 0-41 [facility] Comment on above: Performed By: #### C BCA, CMP, 26435-1, THYR #### [facility] ([id number]) [address] [place] [address] 84661 #### 23536-4, 2088-06 #### [facility] ([id number]) [address] [facility], [address] [place] [address] Bilirubin [Mass/Vol] 0.4 mg/dL Normal 0.3-1.2 [facility] Comment on above: Performed By: #### C BCA, CMP, 14551-9, THYR #### [facility] ([id number]) [address] [place] [address] 41474 #### 55586-2, 2088-06 #### [facility] ([id number]) [address] [facility], [address] [place] [address] Calcium [Mass/Vol] 9.6 mg/dL Normal 8.5-10.5 [facility] Comment on above: Performed By: #### C BCA, CMP, 95068-9, THYR #### [facility] ([id number]) [address] [place] [address] 97054 #### 74830-9, 2088-06 #### [facility] ([id number]) [address] [facility], [address] [place] [address] Chloride [Moles/Vol] 99 mmol/L Normal 98-109 [facility] Comment on above: Performed By: #### C BCA, CMP, 33767-3, THYR #### [facility] ([id number]) [address] [place] [address] 82108 #### 78103-5, 2088-06 #### [facility] ([id number]) [address] [facility], [address] [place] [address] CO2 [Moles/Vol] 23 mmol/L Normal 22-32 [facility] Comment on above: Performed By: #### C BCA, CMP, 44605-6, THYR #### [facility] ([id number]) [address] [place] [address] 83995 #### 25061-8, 2088-06 #### [facility] ([id number]) [address] [facility], [address] [place] [address] Creatinine [Mass/Vol] 2.14 mg/dL High 0.40-1.00 [facility] Comment on above: Result Comment: METH OD TRACEABLE TO IDMS STANDARD Performed By: #### C BCA, CMP, 67987-5, THYR #### [facility] ([id number]) [address] [place] [address] 59148 #### 50476-4, 2088-06 #### [facility] ([id number]) [address], [address] [place] [address] GFR/1.73 sq M.predicted among non-blacks MDRD (S/P/Bld) [Vol rate/Area] 26 mL/min/{1.73_m2} Low >59 [facility] Comment on above: Result Comment: Reported eGFR is based on the CKD-EPI 2020 equation that does not use a race coefficient. Performed By: #### C BCA, CMP, 70226-3, THYR #### [facility] ([id number]) [address] [place] [address] 78127 #### 73110-1, 2088-06 #### [facility] ([id number]) [address], [address] [place] [address] Glucose [Mass/Vol] 159 mg/dL High 65-99 [facility] Comment on above: Performed By: #### C BCA, CMP, 33082-3, THYR #### [facility] ([id number]) [address] [place] [address] 27360 #### 86523-0, 2088-06 #### [facility] ([id number]) [address], [address] [place] [address] Potassium [Moles/Vol] 3.4 mmol/L Low 3.5-5.0 [facility] Comment on above: Performed By: #### C BCA, CMP, 06503-2, THYR #### [facility] ([id number]) [address] [place] [address] 25326 #### 60864-7, 2088-06 #### [facility] ([id number]) [address], [address] [place] [address] Protein [Mass/Vol] 9.4 g/dL High 6.0-8.0 [facility] Comment on above: Performed By: #### C BCA, CMP, 62384-7, THYR #### [facility] ([id number]) [address] [place] [address] 91207 #### 02758-3, 2088-06 #### [facility] ([id number]) [address] [facility], [address] [place] [address] Sodium [Moles/Vol] 135 mmol/L Normal 134-146 [facility] Comment on above: Performed By: #### C BCA, CMP, 40145-5, THYR #### [facility] ([id number]) [address] [place] [address] 42602 #### 43190-8, 2088-06 #### [facility] ([id number]) [address] [facility], [address] [place] [address] Urea nitrogen [Mass/Vol] 38 mg/dL High 5-23 [facility] Comment on above: Performed By: #### C BCA, CMP, 85084-2, THYR #### [facility] ([id number]) [address] [place] [address] 99011 #### 00042-5, 2088-06 #### [facility] ([id number]) [address] [facility], [address] [place] [address] CT BRAIN WO CONT STROKE ALER Ton [...] Dorsey MD on 07/23/2023 9:24 AM Normal [facility] CT CTA CAROTIDon 07-23-2023 CT [...] as low as reasonably achievable.. The [place] symptomatic carotid endarterectomy trial (NASCET) method for [...] Romero MD on 07/23/2023 9:36 AM Normal [facility] CT CTA HEADon 07-23-2023 CT [...] Seals MD on 07/23/2023 9:36 AM Normal [facility] DIRECT LDLon 07-23-2023 Cholesterol in LDL [Mass/Vol] 190 mg/dL High <130 [facility] Comment on above: Result Comment: LDL <100 mg/dL - Desirable LDL 130-159 mg/dL - Borderline High Risk LDL >160 mg/dL - High Risk Performed By: #### C MARQUES, [facility], 03711-4, THYR #### [facility] ([id number]) [address] [place] [address], [place] [address] #### 40671-1, 2088-06 #### [facility] ([id number]) [address] [place] [address], [address] [place] [address] Glucose Glucometer (BldC) [M ass/Vol]on 07-23-2023 Glucose [Mass/Vol] 116 mg/dL High 65-99 [facility] Glucose [Mass/Vol] 155 mg/dL High 65-99 [facility] Glucose [Mass/Vol] 109 mg/dL High 65-99 [facility] Glucose [Mass/Vol] 155 mg/dL High 65-99 [facility] HGB A1C (GLYCO-HGB)on 2023 Glucose [Mass/Vol] 171 mg/dL Normal [facility] Comment on above: Performed By: #### C MARQUES, CMP, 35488-3, THYR #### [facility] ([id number]) [address] [place] [address] #### 82745-4, 2088-06 #### [facility] ([id number]) [address], [address] [place] [address] HbA1c (Bld) [Mass fraction] 7.6 % High 4.4-5.6 [facility] Comment on above: Result Comment: NOTE ADA Guidelines Result HgbA1c Normal : less than 5.7 % Prediabetes : 5.7 % to 6.4 % Diabetes : > 6.4 % Use with caution in patients with abnormal hemoglobin variants as the half-life of red blood cells and in vivo glycation rates are affected. Performed By: #### C MARQUES, CMP, 68692-2, THYR #### [facility] ([id number]) [address] [place] [address] #### 41165-4, 2088-06 #### [facility] ([id number]) [address], [address] [place] [address] Lipid 1996 panelon Cholesterol [Mass/Vol] 327 mg/dL High 150-200 [facility] Comment on above: Performed By: #### Teresa BCA, CMP, 03348-6, THYR #### [facility] ([id number]) [address] [place] [address] #### 15280-9, 2088-06 #### [facility] ([id number]) [address], [address] [place] [address] Cholesterol in HDL [Mass/Vol] 36 mg/dL Low >39 [facility] Comment on above: Result Comment: HDL <40 mg/dL - High Risk HDL > or = 40mg/dL- Desirable HDL >60 mg/dL - Negative Risk Performed By: #### C MARQUES, CMP, 93925-5, THYR #### [facility] ([id number]) [address] [place] [address] #### 81726-8, 2088-06 #### [facility] ([id number]) [address] [place] [address], [address] [place] [address] Cholesterol in VLDL [Mass/Vol] 99 mg/dL High 0-30 [facility] Comment on above: Performed By: #### C MARQUES, CMP, 02703-4, THYR #### [facility] ([id number]) [address] [place] [address] #### 88892-3, 2088-06 #### [facility] ([id number]) [address] [facility], [address] [place] [address] CHOLESTEROL:HDL 9.1 High 1.0-5.0 [facility] Comment on above: Performed By: #### C MARQUES, CMP, 13189-2, THYR #### [facility] ([id number]) [address] [place] [address] #### 53887-4, 2088-06 #### [facility] ([id number]) [address] [place] [address] LDL (CALC) RESULT NOT REPORTED DUE TO HIGH TRIGLYCERIDE Normal <130 [facility] Comment on above: Performed By: #### C BCA, CMP, 96793-8, THYR #### [facility] ([id number]) [address] [place] [address] [place] [address] #### 41506-5, 2088-06 #### [facility] ([id number]) [address] [facility], [address] [place] [address] Triglyceride [Mass/Vol] 494 mg/dL High 27-150 [facility] Comment on above: Performed By: #### C BCA, CMP, 30616-2, THYR #### [facility] ([id number]) [address] [facility], [place] [address] #### 30090-8, 2088-06 #### [facility] ([id number]) [address] [facility], [address] [place] [address] MR BRAIN WO CONTon MR BRAIN WO [...] Mccall MD on 07/23/2023 11:51 AM Normal [facility] THYROID PROFILEon 07-23-2023 Free T4 [Mass/Vol] 1.10 ng/dL Normal 0.61-1.60 [facility] [facility] Comment on above: Performed By: #### C BCA, CMP, 03703-8, THYR #### [facility] ([id number]) [address] [place] [address] #### 17117-5, 2088-06 #### [facility] ([id number]) [address] [place] [address], [address] [place] [address] TSH 2.88 uIU/mL Normal 0.49-4.67 [facility] Comment on above: Performed By: #### C MARQUES, CMP, 64249-3, THYR #### [facility] ([id number]) [address] [place] [address] #### 14425-5, 2088-06 #### [facility] ([id number]) [address] [place] [address], [address] [place] [address] TROPONIN Ion 07-23-2023 Troponin I.cardiac [Mass/Vol] 0.01 ng/mL Normal 0.00-0.04 [facility] Comment on above: Performed By: #### C BCA, CMP, 69712-0, THYR #### [facility] ([id number]) [address] [place] [address] #### 48035-2, 2088-06 #### [facility] ([id number]) [address] [place] [address], [address] [place] [address] Troponin I.cardiac [Mass/Vol] 0.03 ng/mL Normal 0.00-0.04 [facility] Comment on above: Performed By: #### C BCA, CMP, 52231-3, THYR #### [facility] ([id number]) [address] [place] [address] #### 00415-6, 2088-06 #### [facility] ([id number]) [address] [facility], [address] [place] [address] A1C HEMOGLOBINon 05-06-2023 HbA1c (Bld) [Mass fraction] 6.8 % [employer] Other Glucose - FINGER STICKon Glucose [Mass/Vol] 177 mg/dL [employer] Other HbA1c (Bld) [Mass fraction]o n 05-06-2023 A1C HEMOGLOBIN [facility] Other A1C HEMOGLOBINon 10-15-2021 HbA1c (Bld) [Mass fraction] 8 % [employer] Other Glucose - FINGER STICKon Glucose [Mass/Vol] 290 mg/dL [employer] Other HbA1c (Bld) [Mass fraction]o n 10-15-2021 A1C HEMOGLOBIN [facility] Other A1C HEMOGLOBINon 07-17-2021 HbA1c (Bld) [Mass fraction] 7.2 % [employer] Other Glucose - FINGER STICKon Glucose [Mass/Vol] 194 mg/dL [employer] Other HbA1c (Bld) [Mass fraction]o n 07-17-2021 A1C HEMOGLOBIN [facility] Other Creatinine W/GFR Point of Ca reon 09-07-2019 Creatinine [Mass/Vol] 1.95 mg/dL High 0.51 - 1.19 mg/dL [facility] [place] G[facility] Non- 27 mL/min Low >60 [facility] [place] GFR/1.73 sq M predicted among non-blacks MDRD (S/P/Bld) [Vol rate/Area] 32 mL/min/{1.73_m2} Low >60 [facility], [place] GFR/1.73 sq M predicted among non-blacks MDRD (S/P/Bld) [Vol rate/Area] [place], [place] Comment on above: Average GFR for 50-5 9 years old: 93 mL/min/1.73sq m Chronic Kidney Disease: <60 mL/min/1.73sq m Kidney failure: <15 mL/min/1.73sq m eGFR calculated using average adult body mass. Additional eGFR calculator available at: http://www.SocMetrics.A2Zlogix/multiple_crcl_2012.htm OPERATIVE REPORTon 0 OPERATIVE REPORT [address] [address] OPERATIVE REPORT PATIENT NAME: OLY HARRELL : 1960 MED REC NO: [id number] ROOM: ACCOUNT NO: [id number] ADMIT DATE: 09/07/2019 PROVIDER: Martir Bang DATE [...] the recovery room in good condition. 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- Counseled patient that she needs [...] noted below, or sooner ifnew symptoms develop.Marla Juares MD [facility] PROGRESSon 10-04-2017 Protein mass conc HNO ID: [id number] thor: Marla Webb: (none)Author Type: PhysicianType: Progress NotesFiled: 10/04/2017 8:20 PMNote Text:Proliferative Diabetic Retinopathy, Both Eyes:- 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- Counseled patient that she needs [...] noted below, or sooner ifnew symptoms develop.Marla Juares MD [facility] PROGRESSon 08-30-2017 Protein mass conc HNO ID: [id number] thor: Marla Webb: (none)Author Type: PhysicianType: Progress NotesFiled: 08/30/2017 1:01 PMNote Text:Proliferative Diabetic Retinopathy, Both Eyes:- 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- Counseled patient that she needs [...] noted below, or sooner ifnew symptoms develop.Marla Juares MD [facility] HOSPon 04-02-2017 HOSP Office Visit OPHT (OPHTLN) ----OLY HARRELL ([id number]) 1960 FDate Time Provider Trfogoqqga50/6/17 12:00 PM ALAYNA GUTIERREZ During your visit [...] above and agree with all of its relevantcomponents.Samantha Mancusoing Provider: ALAYNA GUTIERREZ [[id number]]Allergies As of Date: 04/02/2017 Noted Allergy ReactionDEMEROL (MEPERIDINE (PF)) 01/30/2014 10 - AnaphylaxisMORPHINE 01/30/2014 10 - AnaphylaxisDate Reviewed: 01/01/2017Reviewed by: Inge Munoz (Tech) - Fully AssessedReason for Visit: Post-Op Visit [1236] Cmt: s/p lid repair 12/23/16Primary Visit Diagnosis:Ptosis of both eyelids [H02.403]Order(s):IOP MEASUREMENT [6916041] Order #: [id number]: 1Prescriptions as of 04/02/2017 Sig: NEOMYCIN 3.5 [...] by mouth. Disc: Discontinued by PatientEncounter Number: [id number] Status:Closed by ALAYNA GUTIERREZ MD on 04/02/17 [facility] PROGRESSon 04-01-2017 Protein mass conc HNO ID: [id number] thor: Alayna GutierrezSer: (none)Author Type: PhysicianType: Progress NotesFiled: 04/02/2017 [...] with all of its relevantcomponents.Alayna Gutierrez MD [facility] ANES Jaylen 12-23-2016 ANES POST HNO ID: [id number] thor: Harjeet PeñalozaService: AnesthesiologyAuthor Type: PhysicianType: Anesthesia [...] : 2:03 PM PAGER/CONTACT #: [facility] ANES PREOPon 12-23-2016 ANES PREOP HNO ID: [id number] thor: El Corteservice: (none)Author Type: PhysicianType: Anesthesia PreOpFiled: 12/23/2016 9:14 AMNote Text:REGIONAL ANESTHESIOLOGY PREOPERATIVE ASSESSMENTPATIENT NAME: Oly HarrellMRN: [id number]: 1960Surgeon(s):Alayna HwangProcedure(s) (LRB):REPAIR BLEPHAROPTOSIS; (TARSO) LEVATOR RESECTION OR ADVANCEMENT, EXTERNALAPPROACH (Bilateral)Estimated body mass index is 44.81 kg/(m2) as calculated from thefollowing: Height as of 12/02/16: 157.5 cm (5' 2 ). Weight as of this encounter: 111.1 kg (245 lb).Most recent hematocrit and potassium results:Hematocrit 35.7 12/02/2016Potassium 4.0 12/02/2016Vitals: 12/23/543237SR: 154/91Pulse: 102Resp: 18Temp: 36.3 ?C (97.3 ?F)TempSrc: [...] LEFT EYENo date: COLONOSCOP W/ OR W/O [facility] SPEC Comment: ColonoscopyNo date: EGD W/O OR [...] Alvarado MDDATE: December 23, 2016TIME: 9:14 AM Normal [facility] OPERATIVE NOon 12-23-2016 OPERATIVE NO HNO ID: [id number] thor: Alayna GutierrezService: OphthalmologyAuthor Type: PhysicianType: Operative ReportFiled: 12/23/2016 10:37 AMNote Text: OPERATIVE/PROCEDURE REPORTLOG ID: [id number]/Procedure Date: 12/23/2016Incision/Procedure Start Time: 9:50 AMIncision Close/Procedure End Time: 10:35 AMSurgeon(s)/Proceduralist(s ) and Preparation Operator(s):Surgeon(s) and Role: * Alayna Gutierrez - PrimaryPre-Op/Pre-Procedure [...] case.SIGNATURE: Alayna Gutierrez MD PATIENT NAME: Oly Shay: December 23, 2016 : PAGER/CONTACT #: [facility] PT EDon 12-23-2016 PT ED HNO ID: [id number] thor: Patti (Rn) MELANIE Krishnanervice: NursingAuthor Type: Registered NurseType: Patient EducationFiled: 12/23/2016 11:09 AMNote Text:[facility] PATIENT EDUCATION NOTEREADINESS TO LEARNCOGNITIVE [...] Signed By Patti Krishnan RN [facility] Vital Signs Date Time Vital Sign Value Performing Clinician Facility 09-30-2023 14:30-0400 Body height 152.4 cm [facility] 09-30-2023 14:30-0400 Body mass index (BMI) [Ratio] 44.5 kg/m2 [facility] 09-30-2023 14:30-0400 Body weight 103.41 kg [facility] 09-30-2023 14:30-0400 Diastolic blood pressure 104 mm[Hg] [facility] 09-30-2023 14:30-0400 Heart rate 84 /min [facility] 09-30-2023 14:30-0400 Respiratory rate 18 /min [facility] 09-30-2023 14:30-0400 SaO2% (BldA) [Mass fraction] 96 % [facility] 09-30-2023 14:30-0400 Systolic blood pressure 195 mm[Hg] [facility] 09-10-2023 12:35-0400 Body height 154.9 cm Yarelis Preciado MD Work Phone: [facility] 09-10-2023 12:35-0400 Body mass index (BMI) [Ratio] 42.89 kg/m2 Yarelis Preciado MD Work Phone: [facility] 09-10-2023 12:35-0400 Body weight 102.97 kg Yarelis Preciado MD Work Phone: [facility] 09-10-2023 12:35-0400 Diastolic blood pressure 72 mm[Hg] Yarelis Preciado MD Work Phone: [facility] 09-10-2023 12:35-0400 Heart rate 70 /min Yarelis Preciado MD Work Phone: [facility] 09-10-2023 12:35-0400 Systolic blood pressure 140 mm[Hg] Yarelis Preciado MD Work Phone: [facility] 07-30-2023 10:06-0500 Body height 157.5 cm Christophe Irwin MD Work Phone: [facility] 07-30-2023 10:06-0500 Body mass index (BMI) [Ratio] 40.42 kg/m2 Christophe Irwin MD Work Phone: [facility] 07-30-2023 10:06-0500 Body temperature 97.5 [degF] Christophe Irwin MD Work Phone: [facility] 07-30-2023 10:06-0500 Body weight 100.25 kg Christophe Irwin MD Work Phone: [facility] 07-30-2023 10:06-0500 Diastolic blood pressure 78 mm[Hg] Christophe Irwin MD Work Phone: [facility] 07-30-2023 10:06-0500 Heart rate 94 /min Christophe Irwin MD Work Phone: [facility] 07-30-2023 10:06-0500 SaO2% (BldA) [Mass fraction] 99 % Christophe Irwin MD Work Phone: [facility] 07-30-2023 10:06-0500 Systolic blood pressure 140 mm[Hg] Christophe Irwin MD Work Phone: [facility] 05-06-2023 13:45-0500 Body height 160.66 cm Nancy Stevens Other [employer] Other 05-06-2023 13:45-0500 Body mass index (BMI) [Ratio] 39.68 kg/m2 Tondra Mapus Other [employer] Other 05-06-2023 13:45-0500 Body weight 102.42 kg Tondra Mapus Other [employer] Other 05-06-2023 13:45-0500 Diastolic blood pressure 77 mm[Hg] Tondra Mapus Other [employer] Other 05-06-2023 13:45-0500 Respiratory rate 18 /min Tondra Mapus Other [employer] Other 05-06-2023 13:45-0500 SaO2% (BldA) [Mass fraction] 100 % Tondra Mapus Other [employer] Other 05-06-2023 13:45-0500 Systolic blood pressure 187 mm[Hg] Tondra Mapus Other [employer] Other 04-14-2022 15:00-0400 Body height 160.66 cm [employer] Other [employer] Other 04-14-2022 15:00-0400 Body mass index (BMI) [Ratio] 39.92 kg/m2 [employer] Other [employer] Other 04-14-2022 15:00-0400 Body temperature 97.3 [degF] [employer] Other [employer] Other 04-14-2022 15:00-0400 Body weight 103.06 kg [employer] Other [employer] Other 04-14-2022 15:00-0400 Diastolic blood pressure 110 mm[Hg] Fadumo Bairess Other [employer] Other 04-14-2022 15:00-0400 Respiratory rate 20 /min Fadumo Bairess Other [employer] Other 04-14-2022 15:00-0400 SaO2% (BldA) [Mass fraction] 98 % Fadumo Bairess Other [employer] Other 04-14-2022 15:00-0400 Systolic blood pressure 170 mm[Hg] Fadumo Bairess Other [employer] Other 10-15-2021 17:15-0400 Body height 160.66 cm Tondra Mapus Other [employer] Other 10-15-2021 17:15-0400 Body mass index (BMI) [Ratio] 40.59 kg/m2 Tondra Mapus Other [employer] Other 10-15-2021 17:15-0400 Body weight 104.78 kg Tondra Mapus Other [employer] Other 10-15-2021 17:15-0400 Diastolic blood pressure 84 mm[Hg] Tondra Mapus Other [employer] Other 10-15-2021 17:15-0400 Respiratory rate 20 /min Tondra Mapus Other [employer] Other 10-15-2021 17:15-0400 SaO2% (BldA) [Mass fraction] 95 % Tondra Mapus Other [employer] Other 10-15-2021 17:15-0400 Systolic blood pressure 147 mm[Hg] Tondra Mapus Other [employer] Other 07-17-2021 15:15-0500 Body height 160.66 cm Tondra Mapus Other [employer] Other 07-17-2021 15:15-0500 Body mass index (BMI) [Ratio] 41.12 kg/m2 Tondra Mapus Other [employer] Other 07-17-2021 15:15-0500 Body weight 106.14 kg Tondra Mapus Other [employer] Other 07-17-2021 15:15-0500 Diastolic blood pressure 84 mm[Hg] Tondra Mapus Other [employer] Other 07-17-2021 15:15-0500 Respiratory rate 20 /min Tondra Mapus Other [employer] Other 07-17-2021 15:15-0500 SaO2% (BldA) [Mass fraction] 97 % Tondra Mapus Other [employer] Other 07-17-2021 15:15-0500 Systolic blood pressure 135 mm[Hg] Tondra Mapus Other [employer] Other 09-07-2019 12:00-0400 Pulse Oximetry 97 % [facility] , [place] 09-07-2019 11:45-0400 Body Temperature 97.5 [degF] [facility] [place] 09-07-2019 11:45-0400 BP Diastolic 82 mm[Hg] Martir Darden [facility] , [place] 09-07-2019 11:45-0400 BP Systolic 150 mm[Hg] Martir Darden [facility] , [place] 09-07-2019 11:45-0400 Pulse (Heart Rate) 94 /min Martir Darden [facility], [place] 09-07-2019 11:45-0400 Respiratory Rate 16 /min Martir Darden [facility] [place] 09-07-2019 08:38-0400 BMI (Body Mass Index) 45.54 kg/m2 Martir Darden [facility] 09-07-2019 08:38-0400 Body weight 112.95 kg [facility] , [place] 09-07-2019 08:38-0400 Height 157.5 cm Martir [facility] [place] [place] Encounters Encounter Date Encounter Type Care Provider Facility Start: 12-01-2023 End: 12-01-2023 ambulatory [facility] Start: 12-01-2023 End: 12-01-2023 Encounter for other preprocedural examination [facility] Start: 11-20-2023 End: 11-20-2023 Emergency department patient visit CHRISTOPHE IRWIN [facility] Start: 10-29-2023 End: 10-29-2023 ambulatory CHRISTOPHE IRWIN Not Available Start: 09-30-2023 Refill Anyi Delgado APRN-AIRLINE [employer] INSTRUCTOR Work Phone: [facility] Start: 09-30-2023 End: 09-30-2023 ambulatory [facility] Work Phone: Start: 09-30-2023 End: 09-30-2023 Patient encounter procedure [facility] Work Phone: Start: 09-29-2023 End: 09-29-2023 ambulatory CHRISTOPHE IRWIN Not Available Start: 09-17-2023 Telephone encounter Marcelaleslie Schafer CMA [facility] Comment on above: Request for Surgical Clearance Start: 09-13-2023 Telephone encounter Tonya Mustafa [facility] Comment on above: [employer] Start: 09-10-2023 End: 09-10-2023 ambulatory YARELIS PRECIADO [facility] Start: 09-10-2023 End: 09-10-2023 Office outpatient visit 25 minutes Yarelis Preciado MD Work Phone: [facility] Comment on above: Sequelae, post-strok e (Primary Dx); Seizure ([facility]); Hypomagnesemia; Colitis; Abnormal brain MRI; Poorly controlled diabetes mellitus ([facility]); CKD stage 3 secondary to diabetes ([facility]); Type 2 diabetes mellitus with complication, with long-term current use of insulin ([facility]); Gait instability; PBA (pseudobulbar affect) Start: 07-30-2023 Bamboo flowsheet Christophe Irwin MD Work Phone: [facility] Start: 07-30-2023 Bambo flowsheet Christophe Irwin MD Work Phone: [facility] Start: 07-30-2023 End: 07-30-2023 ambulatory CHRISTOPHE IRWIN Not Available Start: 07-30-2023 End: 07-30-2023 Preoperative state Christophe Irwin MD Work Phone: [facility] Start: 07-30-2023 End: 07-30-2023 Transitional care manage srvc 7 day discharge Christophe Irwin MD Work Phone: [facility] Comment on above: 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 (CMS/HCC) (Primary Dx); Preoperative clearance; Bunion of right foot; Essential hypertension, benign (CMS/HCC); Type 2 diabetes mellitus with microalbuminuria, with long-term current use of insulin ([facility]) Start: 07-26-2023 End: 07-27-2023 ambulatory ANYI DELGADO [facility] Start: 07-23-2023 End: 07-27-2023 ambulatory CHRISTOPHE IRWIN [facility] Start: 07-23-2023 End: 07-27-2023 ambulatory ANYI DELGADO [facility] Start: 07-23-2023 End: 07-27-2023 Emergency department patient visit ANDREW SHARIF [facility] Start: 07-23-2023 End: 07-26-2023 Evaluation and management of inpatient CHRISTOPHE IRWIN [facility] Start: 07-08-2023 End: 07-08-2023 ambulatory Tondra Mapus Other [employer] Other Start: 07-08-2023 Telephone encounter Tondra Mapus [facility] Start: 05-18-2023 End: 05-18-2023 ambulatory Tondra Mapus Other [employer] Other Start: 05-18-2023 Telephone encounter Tondra Mapus [facility] Start: 05-06-2023 (DM) Diabetes Tondra Mapus [facility] Start: 05-06-2023 End: 05-07-2023 ambulatory Tondra K Mapus [employer] Other Start: 04-29-2023 End: 04-29-2023 ambulatory Tondra Mapus Other [employer] Other Start: 04-29-2023 Telephone encounter Tondra Mapus [facility] Start: 02-24-2023 End: 02-24-2023 ambulatory Tondra Mapus Other [employer] Other Start: 02-24-2023 Telephone encounter Tondra Mapus [facility] Start: 11-09-2022 ambulatory MONET MARTEL Faci lity:[facility]1 Start: 11-05-2022 End: 11-05-2022 ambulatory Tondra Mapus Other [employer] Other Start: 11-05-2022 Telephone encounter Tondra Mapus [facility] Start: 10-30-2022 End: 10-30-2022 ambulatory Tondra Mapus Other [employer] Other Start: 10-30-2022 Telephone encounter Tondra Mapus [facility] Start: 10-12-2022 End: 10-13-[address] CHRISTOPHE IRWIN Facility:[facility] Start: 09-14-2022 End: 09-15-2022 ambulatory ISABELLA COSTAEN Facility:[facility] Start: 08-31-2022 End: 09-01-2022 ambulatory ISABELLA LETICIA Facility:[facility] Start: 08-27-2022 End: 08-27-2022 ambulatory Tondra Mapus Other [employer] Other Start: 08-27-2022 Telephone encounter Tondra Mapus [facility] Start: 08-18-2022 End: 08-19-[address] CHRISTOPHE IRWIN Facility:[facility] Start: 08-10-2022 End: 08-11-[address] CHRISTOPHE IRWIN Facility:[facility] Start: 07-20-2022 End: 07-21-[address] CHRISTOPHE IRWIN Facility:[facility] Start: 06-26-2022 End: 06-27-[address] CHRISTOPHE IRWIN Facility:[facility] Start: 06-18-2022 End: 06-18-2022 ambulatory Tondra Mapus Other [employer] Other Start: 06-18-2022 Telephone encounter Tondra Mapus [facility] Start: 06-15-2022 End: 06-15-2022 ambulatory Tondra Mapus Other [employer] Other Start: 06-15-2022 Telephone encounter Tondra Mapus [facility] Start: 06-09-2022 End: 06-10-2022 ambulatory ISABELLADONTAE COSTAEN Facility:[facility]1 Start: 05-11-2022 End: 05-11-2022 ambulatory UNKNOWN PROVIDER Facility:[facility] Start: 05-07-2022 End: 05-07-2022 ambulatory Tondra Mapus Other [employer] Other Start: 05-07-2022 Telephone encounter Tondra Mapus [facility] Start: 04-15-2022 End: 04-15-2022 ambulatory Aziz Bakhous Other [employer] Other Start: 04-15-2022 Telephone encounter Aziz Bakhous [facility] Start: 04-14-2022 End: 04-14-2022 ambulatory Aziz Bakhous Other [employer] Other Start: 04-14-2022 Office outpatient ne w 30 minutes Aziz Bakhous [facility] [place] Start: 04-01-2022 End: 04-02-[address] AMANDA HOSKINS Facility:[facility] Start: 02-18-2022 End: 02-19-[address] AMANDA HOSKINS Facility:[facility] Start: 01-01-2022 End: 01-01-2022 ambulatory Tondra Mapus Other [employer] Other Start: 01-01-2022 Telephone encounter Tondra Mapus [facility] Start: 10-15-2021 (DM) Diabetes Tondra Mapus [facility] Start: 10-15-2021 End: 10-15-2021 ambulatory Tondra Mapus Other [employer] Other Start: 10-15-2021 Telephone encounter Tondra Mapus [facility] Start: 10-07-2021 End: 10-07-2021 ambulatory Tondra Mapus Other [employer] Other Start: 10-07-2021 Telephone encounter Tondra Mapus [facility] Start: 08-25-2021 End: 08-25-2021 ambulatory Tondra Mapus Other [employer] Other Start: 08-25-2021 Telephone encounter Nancy Stevens [facility] Start: 07-17-2021 (DM) Diabetes Tondra [facility] Start: 07-17-2021 End: 07-17-2021 ambulatory Tondra Rogerus Other [employer] Other Start: 09-07-2019 End: 09-07-2019 Patient encounter procedure MARTIR BANG [facility] Start: 09-07-2019 End: 09-07-2019 Subsequent hospital visit by physician Martir Bang Work Phone: [facility] Start: 01-21-2018 End: 01-24-2018 Patient encounter BRITTANY SPARKS [facility] Start: 11-01-2017 End: 11-02-2017 Patient encounter MARLA JUARES [facility] Start: 10-04-2017 End: 10-05-2017 Patient encounter MARLA JUARES [facility] Start: 08-30-2017 End: 09-02-2017 Patient encounter MARLA JUARES [facility] Start: 04-02-2017 End: 04-02-2017 Patient encounter ALAYNA GUTIERREZ [facility] Start: 12-23-2016 End: 12-23-2016 Ambulatory [facility] Procedures Date Procedure Procedure Detail Performing Clinician Start: 09-10-2023 Follow-up visit Follow-up EHAD AF REEN Start: 09-10-2023 Adult depression scr eening assessment Tonya Mustafa Start: 05-13-2023 Microalbumin [Mass/v olume] in Urine by Test strip Tonya Mustafa Start: 09-07-2019 BEDREST MARTIR ADAME Start: 09-07-2019 [...] Treatment Date Care Activity Detail Author Start: 09-22-2024 Tobacco Screening Tobacco Screening [facility] Start: 09-09-2024 Adult BMI Screening Adult BMI Screen ing [facility] Start: 09-09-2024 Depression Screening Depression Scre ening [facility] Start: 09-09-2024 Tobacco Screening Tobacco Screening [facility] Start: 05-13-2024 Urine screening for protein Urine Microalbumin [facility] Start: 02-25-2024 End: 02-25-2024 Patient encounter procedure 02/25/2024 1:00 PM EDT Office Visit [facility] [address] [place] [phone] Yarelis Preciado MD [address] [place] [address], [address] [place] [phone] [facility] Start: 10-29-2023 End: 10-29-2023 Patient encounter procedure 10/29/2023 10:15 AM EDT [facility] [address] [place] [place] [phone] Christophe Irwin MD [address] [place] [phone] [facility] Start: 07-30-2023 End: 07-30-2023 Patient encounter procedure 07/30/2023 10:15 AM EST Office Visit [facility] [address] [place] [place] [phone] Christophe Irwin MD [address] [place] [phone] Arrived [facility] Comment on above: Arrived Start: 02-26-2023 Influenza vaccination Influenza Vacc ine (#1) [facility] [facility] Start: 01-29-2023 Hemoglobin A1c measurement Diabetes: Hemoglobin A1C [facility] Start: 12-19-2022 Adult BMI Follow Up Plan Adult BMI Follow Up Plan [facility] Start: 02-25-2022 DTaP,Tdap and Td Vaccines (2 - Td or Tdap) DTaP,Tdap and Td Vaccines (2 - Td or Tdap) [facility] Start: 03-17-2021 Screening for malign ant neoplasm of colon Colonoscopy [facility] Start: 05-10-2019 Screening for malign ant neoplasm of breast Mammogram [facility] Start: 05-06-2019 Administration of varicella zoster vaccine Zoster (Shingles) Vaccine (2 of 2) [facility] Start: 02-26-2019 Influenza vaccination Flu vaccine (# 1) [place], [place] Start: 1992 Screening for malign ant neoplasm of cervix [facility] Start: 10-27-1983 Screening for malign ant neoplasm of cervix Pap Smear [facility] Start: 1980 Diabetic foot examination Diabetic Foot Exam [facility] Start: 1972 Glaucoma screening Diabetes: R etinopathy Screening [facility] Start: 1962 Creatinine monitoring Creatinine mon itoring [place], [place] Start: 1962 Glaucoma screening Diabetic Op hthalmology Exam [facility] Start: 1962 Medicare Annual Well ness (AWV) Medicare Annual Wellness (AWV) [facility] Start: 1962 Potassium monitoring Potassium monit oring [place], [place] Start: 1962 Screening for malign ant neoplasm of colon [facility] Start: 1962 Tobacco Counseling Tobacco Counselin g [facility] End: 09-07-2019 BUN & Creatinine BUN & Creatinine Lab STAT One Time for 1 Occurrences starting 09/07/2019 until 09/07/2019 [place] Comment on above: One Time for 1 Occur rences starting 09/07/2019 until 09/07/2019 Comprehensive metabo lic 2000 panel - Serum or Plasma [facility] EKG 12 Lead EKG 12 Lead ECG STAT 09/07/2019 7:38 AM EDT [place] End: 09-07-2019 Electrolyte Panel Electrolyte Panel Lab STAT One Time for 1 Occurrences starting 09/07/2019 until 09/07/2019 [place] Comment on above: One Time for 1 Occur rences starting 09/07/2019 until 09/07/2019 Initiate Oxygen Ther apy Protocol Initiate Oxygen Therapy Protocol Respiratory Care Routine Daily until discontinued starting 09/07/2019 [place] Comment on above: Daily until disconti nued starting 09/07/2019 Phase I & II - meter ed glucose Phase I & II - metered glucose Point of Care Testing Routine As Needed until discontinued starting 09/07/2019 [place] Comment on above: As Needed until disc ontinued starting 09/07/2019 End: 09-07-2019 [facility] Comment on above: One Time for 1 Occur rences starting 09/07/2019 until 09/07/2019 End: 09-07-2019 Pulse Oximetry Spot Check Pulse Oximetry Spot Check Respiratory Care Routine One Time for 1 Occurrences starting 09/07/2019 until 09/07/2019 [facility] Comment on above: One Time for 1 Occur rences starting 09/07/2019 until 09/07/2019 End: 09-07-2019 Urine , POCT Urine , POCT Point of Care Testing Routine One Time for 1 Occurrences starting 09/07/2019 until 09/07/2019 [facility] Comment on above: One Time for 1 Occur rences starting 09/07/2019 until 09/07/2019 [facility] Immunizations Immunization Date Immunization Notes Care Provider Fa cility 11-19-2020 COVID-19, mRNA, LNP- S, PF, 100mcg/0.5mL Dose [facility] 05-15-2020 influenza, injectabl e, quadrivalent, preservative free [facility] 05-15-2020 influenza virus vacc ine, unspecified formulation Christophe Irwin MD Work Phone: [facility] 03-28-2019 pneumococcal conjuga te vaccine, 13 valent [facility] 03-11-2019 Seasonal, quadrivale nt, recombinant, injectable influenza vaccine, preservative free [facility] 03-11-2019 zoster vaccine recombinant [facility] 03-11-2019 zoster vaccine, unspecified formulation [facility] 04-01-2015 influenza, seasonal, injectable, preservative free [facility] 04-01-2015 pneumococcal polysaccharide vaccine, 23 valent [facility] 02-26-2012 tetanus toxoid, redu jose diphtheria toxoid, and acellular pertussis vaccine, adsorbed [facility] Payers Date Payer Category Payer Medicare UHC MEDICARE [employer] DUAL [employer]PLETE xxxxxxxxx 2019-Present xxxxxxxxx [id number] 2019 Medicare [id number] 2018 Self-pay [id number] 2017 Medicare [id number] 2016 Medicaid [id number] 2014 Medicaid MEDICAID [facility] DEPT OF JOB xxxxxxxxxxxx 2014-Present [phone] [address] [place] [address] xxxxxxxxxxxx [id number] 1962 Unknown [id number] 2.16.840.1.939105.3.579.2.1 75 1962 Unknown [id number] 2.16.840.1.449677.3.579.2.7 32 1962 Unknown [id number] 2.16.840.1.722502.3.579.2.5 93 1962 Unknown [id number] 2.16.840.1.322372.3.579.2.5 93 1962 Unknown [id number] 2.16.840.1.033806.3.579.2.5 93 1962 Unknown [id number] 2.16.840.1.418470.3.579.2.5 93 1962 Unknown [id number] 2.16.840.1.128662.3.579.2.5 93 1962 Unknown [id number] 2.16.840.1.863055.3.579.2.5 93 1962 Unknown [id number] 2.16.840.1.427071.3.579.2.5 93 1962 Unknown [id number] 2.16.840.1.430075.3.579.2.5 93 1962 Unknown [id number] 2.16.840.1.669332.3.579.2.5 93 1962 Unknown [id number] 2.16.840.1.825455.3.579.2.5 93 1962 Unknown [id number] 2.16.840.1.515296.3.579.2.5 93 1962 Unknown [id number] 2.16.840.1.820758.3.579.2.1 259 1962 Unknown [id number] 2.16.840.1.608424.3.579.2.1 259 1962 Unknown [id number] 2.16.840.1.047077.3.579.2.1 259 1962 Unknown [id number] 2.16.840.1.717670.3.579.2.1 286 1962 Unknown [id number] 2.16.840.1.600585.3.579.2.1 286 1962 Unknown [id number] 2.16.840.1.039869.3.579.2.1 286 1962 Unknown [id number] 2.16.840.1.848216.3.579.2.1 286 1962 Unknown [id number] 2.16.840.1.405684.3.579.2.1 286 1962 Unknown [id number] 2.16.840.1.521294.3.579.2.1 286 1962 Unknown [id number] 2.16.840.1.119840.3.579.2.1 286 1962 Unknown [id number] 2.16.840.1.312949.3.579.2.1 286 1962 Unknown [id number] 2.16.840.1.506895.3.579.2.1 286 1959 Medicaid [id number] Medicare Medicare [id number] Unknown [id number] 2.16.840.1.348979.3.579.2.5 31 Social History Date Type Detail Facility Start: 09-07-2019 [facility] End: 09-05-1979 History of tobacco use Current smoker [place] End: 09-05-1979 History of tobacco use Cigarette Smoker [place] Start: 09-07-2019 End: 07-23-2023 Cigarettes smoked current (pack per day) - [facility] Start: 09-07-2019 End: 07-30-2023 Alcohol intake Lifetime non-drinker (finding) [place] Start: 09-05-2019 History SDOH Alcohol Frequency 1 [place], [place] Start: 1960 Sex Assigned At Not on file M [place] Start: 07-09-2023 End: 07-23-2023 Sex Assigned At [facility] yste Start: 12-14-2022 End: 09-30-2023 Tobacco smoking status WAIS Never smoked tobacco [facility] Start: 12-14-2022 End: 05-04-2023 Tobacco use and exposure Smokeless tobacco non-user [facility] Start: 1960 Sex Assigned At Female F [facility] Start: 05-04-2023 [facility] Start: 09-10-2023 End: 09-23-2023 Alcohol intake [facility]finding[facility] Has the electric, ga s, oil, or water company threatened to shut off services in your home in past 12Mo No [facility] Are you now , , , , never or living with a partner? [facility] How often to you hav e a drink containing alcohol? Never [facility] How many standard drinks containing alcohol do you have on a typical day? Patient does not drink [facility] Do you feel stress - tense, restless, nervous, or anxious, or unable to sleep at night because your mind is troubled all the time - these days [OSQ] Not at all [employer] [facility] [facility] Medical Equipment Procedure Code Equipment Code Equipment Origin al Text Equipment Identifier Dates [id number], [id number] Star t: 01-16-2018 blood sugar diagnostic (FreeStyle Precision Ana Strips) Start: 08-11-2023 blood sugar diagnostic (FreeStyle Precision Ana Strips) Start: 08-11-2023 End: 09-30-2023 lancets (OneTouc h Delica Plus Lancet) Start: 08-11-2023 End: 09-30-2023 Goals Date Patient Goal Desired Activity /State [...] home self care. Clinical Notes 07-17-2021 to 12-01-2023 Telephone Encounter - Marcela Schafer CMA - 09/17/2023 10:47 AM EDTTelephone Encounter - Taty Vieyra - 09/17/2023 10:47 AM EDTTelephone Encounter - Haley Howell RN - 09/17/2023 10:47 AM EDT Note Date & Type Note Facility 12-01-2023 Note [place] [facility] Note Reason for cardiology consult: New patient here for cardiac clearance prior to foot surgery with Dr. Martel. Not yet scheduled. Chief Complaint: No cardiac complaints HPI: Oly Harrell is a 63 y.o. female without prior cardiac history, she had stroke twice in the past last 1 was on July 24, 2023 when she presented with right arm weakness and the MRI approved that she had acute CVA but she did not receive thrombolytics. She also has history of hypertension, hyperlipidemia, diabetes mellitus, chronic kidney disease, obesity, hypothyroidism, GERD and seizure. The patient states that she takes her medications as prescribed. She states that her blood pressure at home is between 130-150/60-80. She states that she is active and she denies any chest discomfort at rest or with exertion. She admits occasional shortness of breath with exertion but not a lot. She denies orthopnea or paroxysmal nocturnal dyspnea or dizziness or palpitations or legs edema or leg discomfort on exertion. She denies snoring or stopping breathing during the night or being tired during the daytime. She denies alcohol or illicit drugs. She is a former smoker Cardiology ROS: Review of Systems Cardiovascular: Positive for dyspnea on exertion. Respiratory: Positive for wheezing. Musculoskeletal: Positive for arthritis, back pain, joint pain and myalgias. Neurological: Positive for light-headedness and seizures. All other systems reviewed and are negative. Past Medical History She has a past medical history of Chronic kidney disease, Diabetes mellitus (CMS/HCC), Dizziness, Hyperlipidemia, Hypertension, and Stroke (CMS/HCC). Surgical History She has a past surgical history that includes MRA head wo IV contrast (10/30/2022); MRA head wo IV contrast (11/29/2020); Cholecystectomy; Hysterectomy; Appendectomy; Foot surgery; Ankle surgery; and Back surgery. Social History She reports that she has quit smoking. Her smoking use included cigarettes. She has never used smokeless tobacco. She reports that she does not currently use alcohol. No history on file for drug use. Family History Family History Adopted: Yes Family history unknown: Yes Allergies Acetaminophen-codeine, Meperidine (pf), Morphine, Acetaminophen, Semaglutide, and Sertraline Medications Current Outpatient Medications: aspirin 81 mg EC tablet, Take 81 mg by mouth in the morning., Disp: , Rfl: atorvastatin (Lipitor) 40 mg tablet, Take 40 mg by mouth in the morning., Disp: , Rfl: carvedilol (Coreg) 25 mg tablet, Take 25 mg by mouth., Disp: , Rfl: clopidogrel (Plavix) 75 mg tablet, Take 75 mg by mouth in the morning., Disp: , Rfl: furosemide (Lasix) 20 mg tablet, Take 20 mg by mouth in the morning., Disp: , Rfl: HumaLOG KwikPen Insulin 100 unit/mL injection pen, , Disp: , Rfl: hydrALAZINE (Apresoline) 25 mg tablet, Take 25 mg by mouth in the morning and at bedtime., Disp: , Rfl: insulin glargine (Lantus) 100 unit/mL (3 mL) injection pen, Inject 40 Units under the skin twice a day., Disp: , Rfl: losartan (Cozaar) 100 mg tablet, Take 100 mg by mouth in the morning., Disp: , Rfl: Nuedexta 20-10 mg capsule, Take 1 capsule daily for 2 weeks, then increase to 1 capsule twice daily afterwards., Disp: , Rfl: amLODIPine (Norvasc) 10 mg tablet, Take 1 tablet (10 mg) by mouth in the morning., Disp: 30 tablet, Rfl: 3 magnesium aspart,citrate,oxide (Triple Magnesium Complex) 400 mg magnesium capsule, Take 400 mg by mouth., Disp: , Rfl: Last Recorded Vitals Visit Vitals BP (!) 176/94 (BP Location: Left arm, Patient Position: Sitting) Pulse 93 Ht 1.575 m (5' 2 ) Wt 104 kg (230 lb) SpO2 94% BMI 42.07 kg/m??? Smoking Status Former BSA 2.13 m??? Physical Examination: GENERAL: alert and oriented x3, well developed, in no acute distress. HEAD: atraumatic, normocephalic. EYES: VÍCTOR, EOMI. NECK: trachea midline, no JVD present, no carotid bruits present. CARDIAC: S1, S2 present. RRR. No murmur, rubs, or gallops. RESPIRATORY: CTAB, no increased effort of breathing, no rales, rhonchi, or wheezing. ABDOMEN: soft, nontender, nondistended. EXTREMITIES: no lower extremity edema, peripheral pulses are 2+ bilaterally. No rash/skin discoloration present. NEURO: strength/sensation equal and symmetric in bilateral upper and lower extremities. PSYCH: appropriate mood, affect, and judgement. Labs: Labs 09/24/2023 White blood count 9.5, hemoglobin 11.6, hematocrit 36.4 platelet count 316 PT 10.6, INR 1 Sodium 140, potassium 3.3, BUN 27, creatinine 1.76, GFR 36, glucose 118, calcium 9.2 Last Images: EKG today 12/01/2023 showed normal sinus rhythm, normal EKG EKG 09/24/[address] T-WAVE ABNORMALITY Compared to ECG 07/15/2023 10:55:59 T-wave abnormality now present Indeterminate axis no longer present Electronically Signed On 09-25-2023 7:57:15 EDT by BE (more content not included)... [facility] 09-17-2023 Miscellaneous Notes Received a request for surgical clearance from [facility] [place]. Office is requesting most recent office visit note and any medication instructions be faxed over to them @ [phone] by 09/23/23. Request and H&P scanned into the patient media for review. Please complete the patients last OV note and staff will fax it over along with any medication instructions you may have. Thanks. [facility] in [place]. Office called in asking if we received the surgical clearance. Director Corporate Sales informed them yes. Aleksandra would like to know when they would get the form back. In below encounter is was stated they needed the form back by 09 23 23 Please advise Aleksandra [phone] Physician's surgical clearance letter was printed and faxed to [phone], along with last office visit notes. Letter corrected to state stop aspirin 24 hours prior to procedure. Corrected letter scanned into chart. Fax confirmation received. RN left voicemail for donor services manager, Aleksandra, to inform letter was faxed. Clinic number provided for call back with any questions. documented in this encounter [facility] 09-17-2023 Telephone encounter Note Received a request for surgical clearance from [facility] in [place]. Office is requesting most recent office visit note and any medication instructions be faxed over to them @ [phone] by 09/23/23. Request and H&P scanned into the patient media for review. Please complete the patients last OV note and staff will fax it over along with any medication instructions you may have. Thanks. [facility] 09-17-2023 Telephone encounter Note [facility] in [place]. Office called in asking if we received the surgical clearance. Director Corporate Sales informed them yes. Aleksandra would like to know when they would get the form back. In below encounter is was stated they needed the form back by 09 23 23 Please advise Aleksandra [phone] [facility] 09-17-2023 Telephone encounter Note Physician's surgical clearance letter was printed and faxed to [phone], along with last office visit notes. Letter corrected to state stop aspirin 24 hours prior to procedure. Corrected letter scanned into chart. Fax confirmation received. RN left voicemail for donor services manager, Aleksandra, to inform letter was faxed. Clinic number provided for call back with any questions. [facility] 09-13-2023 Miscellaneous Notes Received call today 09/13/23 3:02 from Mounika bean [facility] who was calling to let Dr. Preciado's staff know that she is sending prior auth request for Nudexta to our clinic fax# which I provided to her. MEAGAN approved: [id number]. NUEDEXTA CAP 20-10MG is approved through 06/27/2024. documented in this encounter [facility] 09-13-2023 Telephone encounter Note Received call today 09/13/23 3:02 from Mounika [facility] who was calling to let Dr. Preciado's staff know that she is sending prior auth request for Nudexta to our clinic fax# which I provided to her. [facility] 09-13-2023 Telephone encounter Note MEAGAN approved: [id number]. NUEDEXTA CAP 20-10MG is approved through 06/27/2024. [facility] 09-10-2023 History of Presen t illness Narrative [facility] CL[facility]IC FOLLOW UP NOTE Reason for visit: Hospital Follow up, post-stroke(06/2023). Last clinic visit: 07/14/2022 HPI: Oyl Harrell is a 62 y.o. female who [...] and word finding difficulties. Hospital Course at [facility] 07/23/23-07/25/23: ... 62/F with a past medical [...] - of note patient was admitted at [facility] in October 2022 with altered mentation. [...] History: Diagnosis Date Chronic kidney disease Diabetes ([facility]) Diabetes mellitus ([facility]) Disease of thyroid gland GERD (gastroesophageal reflux disease) Glaucoma Hyperlipemia Hypertension Incontinence Obesity Seizures ([facility]) Stroke ([facility]) Urinary urgency Past Surgical History Past Surgical History: Procedure Laterality Date APPENDECTOMY AUGMENTATION VERTEBRAL KYPHOPLASTY SPINE L1/ BIOPSY L1 N/A 12/02/2020 Performed by Bridger Vizcaino Jr., MD at [facility] BACK SURGERY BREAST BIOPSY Right 1990 BENIGN BREAST BIOPSY Right BENIGN BREAST BIOPSY BREAST SURGERY biopsy CATARACT EXTRACTION Bilateral CHOLECYSTECTOMY COLON SURGERY COLONOSCOPY N/A 03/17/2018 Performed by Santiago Cosby DO at [facility] CYSTOSCOPY EGD Left Lateral 10/17/2020 Performed by Santiago Cosby DO at [facility] EGD N/A 03/17/2018 Performed by Santiago Cosby DO at [facility] ESOPHAGOGASTRODUODENOSCOPY EYE SURGERY FOOT SURGERY Right FOOT SURGERY Left HYSTERECTOMY 1986 COMPLETE HYSTERECTOMY OOPHORECTOMY Bilateral 1985 OTHER SURGICAL [...] min Stress: No Stress Concern Present (07/23/2023) [employer] [facility] [employer] [facility] - Occupational Stress Questionnaire Feeling of Stress : Not at all Social Connections: Moderately Integrated (07/23/2023) Social Connection and Isolation Panel [NHANES] Frequency of Communication with Friends and Family: Three times a week Frequency of Social Gatherings with Friends and Family: Three times a week Attends Sabianist Services: More than 4 times per year [...] complication, with long-term current use of insulin ([facility]) 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 ([facility]) Morbid obesity ([facility]) CKD stage 3 secondary to diabetes ([facility]) Hypomagnesemia Non-intractable vomiting Abdominal pain Coffee ground emesis Hypertension Hyperlipemia Glaucoma GERD (gastroesophageal reflux disease) Disease of thyroid gland Urinary urgency Closed fracture of first lumbar vertebra ([facility]) Stroke ([facility]) Intractable back pain Pathological fracture of lumbar vertebra due to secondary osteoporosis ([facility]) Age-related osteoporosis with current pathological fracture Vitamin D deficiency Altered mental status Seizures ([facility]) Seizure-like activity ([facility]) Mental status change resolved Recurrent episodes of unresponsiveness Seizure ([facility]) Hypokalemia Right thalamic infarction ([facility]) Poorly controlled diabetes mellitus ([facility]) Sequelae, post-stroke Gait instability Right foot drop Hyperlipidemia Asymptomatic bilateral carotid artery stenosis Delirium Colitis Sepsis ([facility]) Left-sided weakness History of stroke History of seizure Diarrhea Hypertensive encephalopathy Abnormal brain MRI RUE weakness CVA (cerebral vascular accident) ([facility]) Stroke ([facility]) Status post, lacunar stroke--> left periventricular ischemic [...] lability and mood disorders. Follow-up regularly with nail maker, director biostatistics and other specialists. Follow Up: 3 months. Yarelis Preciado MD Vascular Neurologist [facility] St[facility] # [phone] Urgent Stroke Calls [phone](ACCESS) I have personally participated in the care of this patient. I have reviewed all pertinent clinical information, including history, physical exam, investigation results and plan. I spent 40 minutes caring for this patient, and more than 50% of that time was spent on counseling the patient/risk and insurance manager/care team and coordinating care. Important Notice: This note was created with the assistance of a speech recognition program. While intending to generate a timely document that accurately reflects the content of the encounter, no guarantee can be provided that every grammatical or spelling mistake has been or will be identified or corrected. Thank you for your understanding. documented in this encounter [facility] 07-30-2023 History of Presen t illness Narrative [...] clearance from neurology. documented in this encounter [facility] 07-08-2023 Evaluation note Encounter Date Diagnosis Assessment Notes Jun, Diabetes mellitus with renal manifestations, uncontrolled (ICD-10 - E11.29) [employer] Other 11-09-2023 Evaluation note* Encounter Date Diagnosis Assessment Notes Treatment Notes Treatment Clinical Notes Apr, Insulin long-term use (ICD-10 - Z79.4) Apr, Type 2 diabetes mellitus with diabetic chronic kidney disease (ICD-10 - E11.22) 1. Controlled, Type 2 diabetes A1c 6.8%. 2. Blood glucose levels improved. According to [employer] 2 cgm download 04/16/23-04/29/23: Avg glucose 157. [...] addressed- pt. will have paperwork sent from [employer] for diabetic shoes. She has history of [...] diabetes medication issues. 6. Prescriptions: Bolivar Carrasquillo - Humnaomie sent 05/06/23 7. Prescriptions will not be [...] ldl unable to report, trig 433-on statin. 09 Nov, 2023 HTN (hypertension) (ICD-10 - I10) High blood [...] (ICD-10 - S91.301A) keep f/u with Dr. Martel Wednesday05/10/23 [facility] Other 05-05-2023 Evaluation note* Encounter Date Diagnosis Assessment Notes Treatment Notes Treatment Clinical Notes October, Hyperlipidemia (ICD-10 - E78.5) [facility] Other 12-14-2022 NotePROCEDURE: XR FOOT RT MIN [...] Electronically authenticated by: AMANDA HOSKINS Date: 2022-06-10 09:23[facility]10[facility]18[facility]20[facility] Evaluation note* Encounter Date Diagnosis Assessment Notes [...] current with her PCP for hyperlipidemia control [employer] Other 10-05-2022 NotePROCEDURE: XR ANKLE RT MIN [...] Electronically authenticated by: AMANDA HOSKINS Date: 2022-04-01 10:53[facility]08-25-2022 NotePROCEDURE: XR ANKLE LT MIN 3 V [...] Electronically authenticated by: AMANDA HOSKINS Date: 2022-02-19 08:07[facility]08-25-2022 NotePROCEDURE: XR FOOT RT MIN 3 VIEWS [...] Electronically authenticated by: AMANDA HOSKINS Date: 2022-02-19 08:04[facility]07-07-2022 Evaluation note* Encounter Date Diagnosis Assessment Notes Treatment Notes Treatment Clinical Notes Dec, Diabetes mellitus with renal manifestations, uncontrolled (ICD-10 - E11.29) [employer] Other 04-20-2022 Evaluation note* Encounter Date Diagnosis Assessment Notes Treatment Notes Treatment Clinical Notes Sep, Insulin long-term use (ICD-10 - Z79.4) Sep, Type 2 diabetes mellitus with diabetic chronic kidney disease (ICD-10 - E11.22) 1. Uncontrolled, Type 2 diabetes A1c 8%. 2. Blood glucose levels according to [employer] 2 cgm download 09/29/21-10/12/21: Avg glucose 188. [...] addressed- pt. will have paperwork sent from [employer] for diabetic shoes. She has history of [...] ml/min (ICD-10 - N18.3) Keep f/u with optimization analyst pt reported Dr. Donaldson no longer practicing- recommend referral to [facility] Sep, BMI 40.0-44.9, adult (ICD-10 - Z68.41) Deciphering the nutrition facts label material was published [employer] Other 01-20-2022 Evaluation note* Encounter Date Diagnosis [...] cgm today. Will send for cgm's to [place]. Discussed with pt adding sglt2. Reviewed common [...] addressed- pt. will have paperwork sent from [employer] for diabetic shoes. She has history of [...] ml/min (ICD-10 - N18.3) Keep f/u with optimization analyst. Jun, BMI 40.0-44.9, adult (ICD-10 - Z68.41) Deciphering the nutrition facts label material was published [employer] Other Chief complaint+Reason for visit Narrative* Chief Complaint penelope reader Reason for Visit Diabetes Dietary counseling and surveillance Hyperlipidemia Hypertension [facility] Work Phone: Evaluation noteNo InformationNort [employer] Other Evaluation note* Diagnosis 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 (CMS/HCC)- Primary Preoperative clearance Unspecified pre-operative examination Bunion of right foot Bunion Essential hypertension, benign (CMS/HCC) Essential hypertension, benign Type 2 diabetes mellitus with microalbuminuria, with long-term current use of insulin ([facility]) documented in this encounter [facility] HealthcareEvaluation noteNo assessment information availableKettering [facility] Work Phone: Evaluation note* Diagnosis Sequelae, post-stroke- Primary Seizure ([facility]) Other convulsions Hypomagnesemia Disorders of magnesium metabolism Colitis Other and unspecified noninfectious gastroenteritis and colitis Abnormal brain MRI Nonspecific (abnormal) findings on radiological and other examination of skull and head Poorly controlled diabetes mellitus ([facility]) Type II or unspecified type diabetes mellitus without mention of complication, not stated as uncontrolled CKD stage 3 secondary to diabetes ([facility]) Type 2 diabetes mellitus with complication, with long-term current use of insulin ([facility]) Gait instability Abnormality of gait PBA (pseudobulbar affect) 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 [facility] Diagnosis Onset Date Resolution Status Diabetes acute Dietary counseling and surveillance acute Hyperlipidemia acute Hypertension acute [facility] Work Phone: History general Narrative - Reported* Type Description [...] 2020 Hospitalization History Seizures-[facility] 05/2020 [employer] Other History general Narrative - Reported* Type Description Date Medical History Diabetes Medical History Hypertension Medical History [facility] Medical History Chronic pelvic pain Medical History CRF stage 3 Medical History LEFT ANKLE FRACTURE WITH SURGICA L REPAIR Medical History RIGHT FOOT ABSCESS Medical History Seizures Medical History INSULIN ASSISTED USE Medical History HYPERLIPIDEMIA Medical History TYPE [...] 2020 Hospitalization History Seizures-[facility] 05/2020 [employer] Other History general Narrative - Reported* Type Description Date Medical History Diabetes Medical History Hypertension Medical History [facility] Medical History Chronic pelvic pain Medical History CRF stage 3 Medical History LEFT ANKLE FRACTURE WITH SURGICA L REPAIR Medical History RIGHT FOOT ABSCESS Medical History Seizures Medical History INSULIN DIE TESTER USE Medical History HYPERLIPIDEMIA Medical History TYPE [...] 2020 Hospitalization History Seizures-[facility] 05/2020 [employer] Other InstructionsNot on filedocumented in this encounter [employer] SystemInstructionsNot on filedocumented in this encounter [employer] SystemInstructionsNot on filedocumented in this encounter [facility] SystemInstructionsNot on filedocumented in this encounter [employer] SystemReason for referral (narrative)* Consultation (Routine) - Pending Review Specialty Diagnoses / Procedures Referred By Jade leblanc Referred To Contact Behavioral Health Diagnoses Sequelae, post-stroke PBA (pseudobulbar affect) Yarelis Preciado MD [address] [place] [address], [address] [phone] Awa Atkinson, CUSTOM FEED MILL OPERATOR-[facility] [address] [place] [address] Referral ID Status Reason Start Date Expiration Date Visits Requested Visits Authorized [id number] Pending Review Specialty Services Required 09/10/2023 09/09/2024 1 1 * Medication Prior Authorization - Pending Review Specialty Diagnoses / Procedures Referred By Jade leblanc Referred To Contact Diagnoses Sequelae, post-stroke PBA (pseudobulbar affect) Yarelis Preciado MD [address] [place] [address], [address] [phone] Referral ID Status Reason Start Date Expiration Date V isits Requested Visits Authorized [id number] Pending Review 1 1 [facility] Summary Purpose Family History No Family History Records FoundNo Family History Records FoundNo Family History Records FoundNo Family History Records FoundNo Family History Records FoundNo Family History Records FoundNo Family History Records FoundNo Family History Records FoundNo Family History Records Found Advance Directives No Advanced Directives Records FoundDocuments on File Type Date Recorded Patient Senior Information Developer Expl anation Advance Directives and Living Will Power of Senior Analyst Latest Code Status on File Code Status [...] Code 05/12/2022 2:41 PM 05/15/2022 7:05 PM Advance Directive Response Recorded Date/ Time Advance Directives u January 11 3:10pm Assessments Diagnosis 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 (HCC) Additional Source Comments INFORMATION SOURCE (unrecogn ized section and content) DATE CREATED AUTHOR 12/22/2017 [facility] DATE CREATED AUTHOR AUTHOR'S ORGANIZ ATION 01/24/2018 [facility] DATE CREATED AUTHOR AUTHOR'S ORGANIZ ATION 09/14/2019 [facility] DATE CREATED AUTHOR AUTHOR'S ORGANIZ ATION 05/11/2022 [employer] DATE CREATED AUTHOR AUTHOR'S ORGANIZ ATION 11/11/2022 [facility] DATE CREATED AUTHOR AUTHOR'S ORGANIZ ATION 08/13/2023 [facility] DATE CREATED AUTHOR AUTHOR'S ORGANIZ ATION 10/30/2023 [facility] DATE CREATED AUTHOR AUTHOR'S ORGANIZ ATION 11/22/2023 [facility] DATE CREATED AUTHOR AUTHOR'S ORGANIZ ATION 12/03/2023 [facility] Reason for Visit (unrecogniz ed section and content) Status Reason Specialty Diagnoses / Procedures Referre d By Contact Referred To Contact Diagnoses Vitreous hemorrhage (HCC) VITREOUS HEMORRAGE Procedures MI VITRECTOMY,MECHANICAL MI VITRECTOMY PARS PLANA REMOVE PRERETINAL MEMBRANE VITRECTOMY 25 GAUGE Martir Bang MD [facility] [facility], [address] [place] [address] [facility] Reason Comments Follow-up Surgical clearance Reason Onset Date Comments [employer] 09/13/2023 Reason Comments Follow-up Patient is here toda y as a post stroke follow up Reason Onset Date Comments Request for Surgical Clearance 09/17/2023 Reason Comments Med Refill Care Teams (unrecognized sec tion and content) Industrial Pipefitter Journeyman Relationship Specialty Start Date End Date Christophe Irwin MD [address] [place] [phone] PCP - General Family Medicine 07/20/23 Industrial Pipefitter Journeyman Relationship Specialty Start Date End Date Christophe Irwin MD [address] [place] [phone] PCP - General Family Medicine 07/20/23 Industrial Pipefitter Journeyman Relationship Specialty Start Date End Date Christophe Irwin MD [address] [place] [address] PCP - General Family Medicine 07/23/23 Industrial Pipefitter Journeyman Relationship Specialty Start Date End Date Christophe Irwin MD [address] [place] [address] PCP - General Family Medicine 07/23/23 Industrial Pipefitter Journeyman Relationship Specialty Start Date End Date Christophe Irwin MD [address] [place] [address] PCP - [facility] 07/23/23 Team Status: Active Member Role Status Dates Roney Sahu MD Primary Care Provider Active Team Status: Inactive Member Role Status Dates Roney Sahu MD Primary Care Provider Active Start: September 30, 2023 End: September 30, 2023 Nancy Stevens APRN Attending Provider Active Start: September 30, 2023 End: September 30, 2023 Industrial Pipefitter Journeyman Relationship Specialty Start Date End Date Christophe Irwin MD [address] [place] [address] PCP - [facility] 07/23/23 Goals (unrecognized section and content) Goals [...] BE BASED ON THE PRIMARY CLINICAL RECORDS. [employer] [facility]. provides no warranty or guarantee of the accuracy or completeness of information in this document.
[2023-12-20 11:25] LABS: Basophils Absolute Auto 0.1 10^3/uL (0.0-0.1); Basophils Percent Auto 0.6 % (0.2-2.0); Eosinophils Absolute Auto 0.2 10^3/uL (0.0-0.7); Eosinophils Percent Auto 2.3 % (0.9-7.0); Hematocrit 33.9 % (36.0-48.0); Hemoglobin 11.2 g/dL (12.0-16.0); Immature Granulocytes Abs Auto 0.02 10^3/uL (0.00-0.03); Immature Granulocytes Pct Auto 0.2 % (0.0-0.5); Lymphocytes Absolute Auto 1.5 10^3/uL (1.2-3.8); Lymphocytes Percent Auto 17.5 % (20.5-60.0); Mean Corpuscular Hemoglobin 26.7 pg (26.7-34.0); Mean Corpuscular Volume 80.9 fL (81.0-99.0); Mean Platelet Volume 9.9 fL (9.5-13.5); Monocytes Absolute Auto 0.6 10^3/uL (0.3-0.8); Monocytes Percent Auto 6.7 % (1.7-12.0); Neutrophils Absolute Auto 6.4 10^3/uL (1.4-6.5); Neutrophils Percent Auto 72.7 % (43.0-75.0); Platelet Count 284 10^3/uL (150-450); Red Blood Count 4.19 10^6/uL (4.20-5.40); Red Cell Distribution Width 13.8 % (11.0-15.0); White Blood Count 8.8 10^3/uL (4.0-11.0)
[2023-12-20 12:17] LABS: Anion Gap 13.8; BUN Creatinine Ratio 15.8; Calcium 9.5 mg/dL (8.5-10.1); Carbon Dioxide 27.9 mmol/L (21.0-32.0); Chloride 100 mmol/L (98-107); Estimated GFR (African America 33 (>=60); Estimated GFR (Non-African Ame 27 (>=60); Glucose 135 mg/dL (74-106); Potassium 3.7 mmol/L (3.5-5.1); Sodium 138 mmol/L (136-145)
[2023-12-20 12:25] LABS: INR 0.97; Partial Thromboplastin Time 28.9 sec (22.3-36.2); Prothrombin Time 10.3 sec (9.0-11.6)
== END 2023-12-20 10:30 | disposition home or self-care (01) ==
LOC: PST 10:30
PROVIDERS: PCP Family Medicine; Visit Provider Podiatrist Foot & Ankle Surgery
DX: Z01.812 Encounter for preprocedural laboratory examination (principal); M20.21 Hallux rigidus, right foot; M20.11 Hallux valgus (acquired), right foot
CPT/HCPCS: 80048; 85025; 85610; 85730

== ENCOUNTER 2023-12-27 06:34 | Day surgery (SDC) | payer MEDICARE, MEDICAID, SELFPAY ==
[2023-12-20 10:45] VITALS: BP 134/82; PULSE 91; TEMP 36.3; O2SAT 96; BMI 44.0
[2023-12-27] VITALS (8 sets, daily range): BP systolic 153–196; BP diastolic 77–92; PULSE 80–87; TEMP 36.1; O2SAT 93–99; BMI 43.2
--- NOTE | 2023-12-27 | FL_ITS ---
[address] [address] Patient Name: OLY MARTIN MRN: [id number] date: 1960 Sex: F Assigned Patient Location: [facility] Current Patient Location: Accession/Order Number: [id number] Exam Date: 12/27/2023 09:30 Report Date: 01/06/2024 07:34 At the request of: MONET MARTEL Procedure: FL fluoroscopy <1hr NON-READ EXAM: FL fluoroscopy <1hr NON-READ HISTORY: TECHNIQUE: FINDINGS: Please see Operative Report. Electronically authenticated by: RADIOLOGIST NO Date: 01/06/2024 07:34
--- OUTSIDE RECORDS SUMMARY | 2023-12-27 06:37 | XMS_ITS | CCD ---
Author Organization [facility] Care Team Providers Care Engine Tester Name Role Phone GUTIERREZ, ALAYNA Unavailable Unavailable GUTIERREZ, ALAYNA Unavailable Unavailable GUTIERREZ, ALAYNA Unavailable Unavailable GUTIERREZ, ALAYNA Unavailable Unavailable VIRGEN, MARLA Unavailable Unavailable VIRGEN, MARLA Unavailable Unavailable VIRGEN, MARLA Unavailable Unavailable VIRGEN, MARLA Unavailable Unavailable VIRGEN, MARLA Unavailable Unavailable BABIUCH, BRITTANY Unavailable Unavailable BARTOLO, MARTIR T Admitting Unavailable BARTOLO, MARTIR T Attending Unavailable CHRISTOPHE IRWIN Primary Care UnavailChristophe Dunbar Primary Care Provider [phone] RogerShailesh villalobos Unavailable Fadumo Chau Unavailable PROVIDER, UNKNOWN Attending Unavailable PROVIDER, UNKNOWN Admitting Unavailable ISABELLA KELLY Attending Unavailable NADEREAdriano, DR CHRISTOPHE Redmond Primary Care Unavailable LETICIALUIS ANGEL OLVIERISABELLA Admitting Unavailable LETICIAISABELLA Admitting Unavailable LETICIAKIMLY Attending [...] [MEPERIDINE (PF)] Drug Allergy 01-31-20 14 Anaphylaxis [facility] (20 sources) morphine; Translations: [MORPHINE] Drug Allergy 01-31-20 Other (See Comments), Anaphylaxis, Unknown, Other [facility] (20 sources) Meperidine; Translations: [MEPERIDINE] Drug Allergy 01-31-20 14 Other (See Comments), Anaphylaxis, [place] (7 sources) Sertraline; Translations: [SERTRALINE HCL] Drug Allergy 09-05-19 [place] (1 source) Other Propensity to adverse reactions 09-05-19 Other (See Comments) [place] (20 sources) Acetaminophen; Translations: [ACETAMINOPHEN] Drug Allergy 05-06-20 Unknown, Constipation [facility] (1 source) Meperidine Drug Allergy 03-06-20 15 [facility] (1 source) Sertraline Drug Allergy 05-11-20 20 [facility] (1 source) Tylenol-Codeine #3 Drug allergy (disorder) 05-11-20 [facility] (6 sources) dulaglutide Drug Allergy 05-06-20 23 g/i [facility] (7 sources) semaglutide; Translations: [SEMAGLUTIDE] Drug Allergy 05-06-20 23 g/i s/e [facility] (16 sources) Acetaminophen / Codeine; Translations: [ACETAMINOPHEN-CO DEINE] Drug Allergy 08-13-19 18 Shortness of breath, Abdominal Pain [facility] (3 sources) Meperidine Drug Allergy 12-15-19 23 Unknown [facility] (4 sources) Sertraline; Translations: [SERTRALINE] Drug Allergy 09-05-19 [facility] (1 source) Acetaminophen Drug Allergy 05-06-20 [facility] (1 source) dulaglutide Drug Allergy 05-06-20 [facility] (1 source) Meperidine Drug Allergy 05-06-20 [facility] (1 source) semaglutide Drug allergy (disorder) 05-06-20 [facility] Medications Current Medications Medication Drug [...] 1 capsule Orally Active Cholecalciferol 1.25 MG (99368 UT) 1 capsule Orally Active dapagliflozin 10 mg oral tablet (8 sources) Sodium-Glucose Cotransporter 2 Inhibitor take 1 tablet by mouth in the morning dapagliflozin (FARXIGA) 10 mg tablet Take 1 tablet (10 mg total) by mouth in the morning. 0 Active dextromethorphan hydrobromide 20 mg / quiNIDine sulfate 10 mg oral capsule (5 sources) Antiarrhythmic, Uncompetitive O-fvjjun-S-aspartate Receptor Antagonist, Cytochrome P450 2D6 Inhibitor, Sigma-1 [...] mo uth every week Ergocalciferol 1.25 MG (48469 UT) 1 capsule Orally weekly Jan, Active [...] sources) Long-term current use of insulin; Translations: [lobsterman (current) use of insulin] Episodic Other bone [...] Onset: 07-03-2022 Episodic Other aftercare (5 sources) lobsterman (current) use of insulin; Translations: [lobsterman (current) use of insulin] Onset: 11-01-2017 Resolved: [...] Range Facility Office Visiton 12-01-2023 Follow-up visit [id number] Lisa Harrell Karena 1960 F Date Provider Department Center 12/01/2023 RUPESH MAHMOOD [facility] Family History Adopted: Yes Family history unknown: Yes Level of Service:79901 [place] OFFICE/OUTPATIENT NEW MODERATE MDM 45 MINUTES Normal [facility] CBC AND AUTO DIFFon 11-20-19 ABSOLUTE BASOPHIL 0.1 X10E9/L Normal 0.0-0.2 [facility] Comment on above: Performed By: #### C BCA, CMP, 97160-3, THYR #### [facility] ([id number]) [address] [place] [address] #### 17260-4, 2088-06 #### [facility] ([id number]) [address] [place] [address], [address] [place] [address] ABSOLUTE NEUTROPHIL 8.2 X10E9/L High 1.5-6.6 [facility] Comment on above: Performed By: #### C BCA, CMP, 88012-7, THYR #### [facility] ([id number]) [address] [place] [address] 79729 #### 00001-2, 2088-06 #### [facility] ([id number]) [address] [place] [address], [address] [place] [address] Basophils/100 WBC (Bld) 0.8 % Normal [facility] Comment on above: Performed By: #### C BCA, CMP, 03930-6, THYR #### [facility] ([id number]) [address] [place] [address] 21473 #### 11731-0, 2088-06 #### [facility] ([id number]) [address] [place] [address], [address] [place] [address] Eosinophils (Bld) [#/Vol] 0.1 10*3/uL Normal 0.0-0.4 [facility] Comment on above: Performed By: #### C BCA, CMP, 92004-0, THYR #### [facility] ([id number]) [address] [place] [address] 40000 #### 48933-9, 2088-06 #### [facility] ([id number]) [address] [place] [address], [facility] [address] [place] [address] Eosinophils/100 WBC (Bld) 1.4 % Normal [facility] Comment on above: Performed By: #### C BCA, CMP, 79711-0, THYR #### [facility] ([id number]) [address] [place] [address] 33801 #### 47859-4, 2088-06 #### [facility] ([id number]) [address] [place] [address], [facility] [address] [place] [address] Erythrocyte distribution width (RBC) [Ratio] 14.4 % Normal 11.5-15.0 [facility] Comment on above: Performed By: #### C BCA, CMP, 54140-5, THYR #### [facility] ([id number]) [address] [place] [address] 99343 #### 85141-8, 2088-06 #### [facility] ([id number]) [address] [place] [address], [address] [place] [address] Hematocrit (Bld) [Volume fraction] 34.1 % Low 35-47 [facility] Comment on above: Performed By: #### C BCA, CMP, 77806-9, THYR #### [facility] ([id number]) [address] [place] [address] #### 74558-8, 2088-06 #### [facility] ([id number]) [address], [address] [place] [address] Hemoglobin (Bld) [Mass/Vol] 11.4 g/dL Low 11.7-15.5 [facility] Comment on above: Performed By: #### C BCA, CMP, 81723-4, THYR #### [facility] ([id number]) [address] [place] [address] 26549 #### 91992-8, 2088-06 #### [facility] ([id number]) [address], [address] [place] [address] Lymphocytes (Bld) [#/Vol] 1.4 10*3/uL Normal 1.0-3.5 [facility] Comment on above: Performed By: #### C BCA, CMP, 15198-4, THYR #### [facility] ([id number]) [address] [place] [address] 90137 #### 02430-9, 2088-06 #### [facility] ([id number]) [address], [address] [place] [address] Lymphocytes/100 WBC (Bld) 13.2 % Normal [facility] Comment on above: Performed By: #### Teresa BCA, CMP, 28879-1, THYR #### [facility] ([id number]) [address] [place] [address] 10044 #### 28098-3, 2088-06 #### [facility] ([id number]) [address], [address] [place] [address] MCH (RBC) [Entitic mass] 26.5 pg Low 27-34 [facility] Comment on above: Performed By: #### C BCA, CMP, 44809-1, THYR #### [facility] ([id number]) [address] [place] [address] #### 16837-2, 2088-06 #### [facility] ([id number]) [address], [address] [place] [address] MCHC (RBC) [Mass/Vol] 33.4 g/dL Normal 32-36 [facility] Comment on above: Performed By: #### C BCA, CMP, 70603-7, THYR #### [facility] ([id number]) [address] [place] [address] 68742 #### 61567-9, 2088-06 #### [facility] ([id number]) [address], [address] [place] [address] MCV (RBC) [Entitic vol] 79 fL Low 80-100 [facility] Comment on above: Performed By: #### C BCA, CMP, 09628-0, THYR #### [facility] ([id number]) [address] [place] [address] 29259 #### 46197-1, 2088-06 #### [facility] ([id number]) [address], [address] [place] [address] Monocytes (Bld) [#/Vol] 0.6 10*3/uL Normal 0-0.9 [facility] Comment on above: Performed By: #### C BCA, CMP, 56320-8, THYR #### [facility] ([id number]) [address] [place] [address] 51881 #### 43818-2, 2088-06 #### [facility] ([id number]) [address], [address] [place] [address] Monocytes/100 WBC (Bld) 5.5 % Normal [facility] Comment on above: Performed By: #### C BCA, CMP, 92497-7, THYR #### [facility] ([id number]) [address] [place] [address] 832[address] #### 67023-1, 2088-06 #### [facility] ([id number]) [address], [address] [place] [address] Neutrophils/100 WBC (Bld) 79.1 % Normal [facility] Comment on above: Performed By: #### C BCA, CMP, 63104-8, THYR #### [facility] ([id number]) [address] [place] [address] 25645 #### 36588-7, 2088-06 #### [facility] ([id number]) [address] [facility], [address] [place] [address] Platelet mean volume (Bld) [Entitic vol] 8.2 fL Normal 7-12 [facility] Comment on above: Performed By: #### C BCA, CMP, 37884-2, THYR #### [facility] ([id number]) [address] [place] [address] 21141 #### 86908-7, 2088-06 #### [facility] ([id number]) [address], [address] [place] [address] Platelets (Bld) [#/Vol] 346 10*3/uL Normal 150-450 [facility] Comment on above: Performed By: #### C BCA, CMP, 20553-2, THYR #### [facility] ([id number]) [address] [place] [address] 79031 #### 83441-4, 2088-06 #### [facility] ([id number]) [address], [address] [place] [address] RBC COUNT 4.29 X10E12/L Normal 3.80-5.20 [facility] Comment on above: Performed By: #### C BCA, CMP, 37946-4, THYR #### [facility] ([id number]) [address] [place] [address] 13668 #### 53886-5, 2088-06 #### [facility] ([id number]) [address], [address] [place] [address] WBC (Bld) [#/Vol] 10.4 10*3/uL Normal 4.0-11.0 [facility] Comment on above: Performed By: #### C BCA, CMP, 47072-2, THYR #### [facility] ([id number]) [address] [place] [address] 76845 #### 70556-2, 2088-06 #### [facility] ([id number]) [address], [address] [place] [address] COMPREHENSIVE METABOLIC PANE [facility] [place] 11-20-2023 Albumin [Mass/Vol] 3.7 g/dL Normal 3.2-5.3 [facility] Comment on above: Performed By: #### C BCA, CMP, 24514-1, THYR #### [facility] ([id number]) [address] [place] [address] 06891 #### 70070-2, 2088-06 #### [facility] ([id number]) [address], [address] [place] [address] ALP [Catalytic activity/Vol] 121 U/L Normal 39-130 [facility] Comment on above: Performed By: #### C BCA, CMP, 35845-4, THYR #### [facility] ([id number]) [address] [place] [address] 67608 #### 03744-4, 2088-06 #### [facility] ([id number]) [address], [address] [place] [address] ALT [Catalytic activity/Vol] 12 U/L Normal 0-31 [facility] Comment on above: Performed By: #### C BCA, CMP, 10172-5, THYR #### [facility] ([id number]) [address] [place] [address] 56605 #### 25251-8, 2088-06 #### [facility] ([id number]) [address], [address] [place] [address] Anion gap [Moles/Vol] 9 mmol/L Normal 5-15 [facility] Comment on above: Performed By: #### C BCA, CMP, 34468-2, THYR #### [facility] ([id number]) [address] [place] [address] 18251 #### 65479-6, 2088-06 #### [facility] ([id number]) [address], [address] [place] [address] AST [Catalytic activity/Vol] 16 U/L Normal 0-41 [facility] Comment on above: Performed By: #### C BCA, CMP, 84632-0, THYR #### [facility] ([id number]) [address] [place] [address] 47509 #### 47761-3, 2088-06 #### [facility] ([id number]) [address], [address] [place] [address] Bilirubin [Mass/Vol] 0.4 mg/dL Normal 0.3-1.2 [facility] Comment on above: Performed By: #### C BCA, CMP, 96702-2, THYR #### [facility] ([id number]) [address] [place] [address] 15819 #### 35309-1, 2088-06 #### [facility] ([id number]) [address], [address] [place] [address] Calcium [Mass/Vol] 9.3 mg/dL Normal 8.5-10.5 [facility] Comment on above: Performed By: #### C BCA, CMP, 75832-7, THYR #### [facility] ([id number]) [address] [place] [address] 04978 #### 28319-0, 2088-06 #### [facility] ([id number]) [address], [address] [place] [address] Chloride [Moles/Vol] 101 mmol/L Normal 98-109 [facility] Comment on above: Performed By: #### C BCA, CMP, 07931-3, THYR #### [facility] ([id number]) [address] [place] [address] 57794 #### 92279-3, 2088-06 #### [facility] ([id number]) [address], [address] [place] [address] CO2 [Moles/Vol] 23 mmol/L Normal 22-32 [facility] Comment on above: Performed By: #### C BCA, CMP, 64944-7, THYR #### [facility] ([id number]) [address] [place] [address] 07988 #### 89406-9, 2088-06 #### [facility] ([id number]) [address], [address] [place] [address] Creatinine [Mass/Vol] 2.20 mg/dL High 0.40-1.00 [facility] Comment on above: Result Comment: METH OD TRACEABLE TO IDMS STANDARD Performed By: #### C BCA, CMP, 78641-4, THYR #### [facility] ([id number]) [address] [place] [address] 72476 #### 52346-2, 2089-1 #### [facility] ([id number]) [address], [address] [place] [address] GFR/1.73 sq M.predicted among non-blacks MDRD (S/P/Bld) [Vol rate/Area] 25 mL/min/{1.73_m2} Low >59 [facility] Comment on above: Result Comment: Reported eGFR is based on the CKD-EPI 2020 equation that does not use a race coefficient. Performed By: #### C MARQUES, CMP, 48279-0, THYR #### [facility] ([id number]) [address] [place] [address] 90692 #### 97125-1, 2088-06 #### [facility] ([id number]) [address], [address] [place] [address] Glucose [Mass/Vol] 148 mg/dL High 65-99 [facility] Comment on above: Performed By: #### C BCA, CMP, 67034-6, THYR #### [facility] ([id number]) [address] [place] [address] 21000 #### 66532-2, 2088-06 #### [facility] ([id number]) [address], [address] [place] [address] Potassium [Moles/Vol] 4.1 mmol/L Normal 3.5-5.0 [facility] Comment on above: Performed By: #### C BCA, CMP, 12319-3, THYR #### [facility] ([id number]) [address] [place] [address] 92271 #### 81700-6, 2088-06 #### [facility] ([id number]) [address], [address] [place] [address] Protein [Mass/Vol] 7.9 g/dL Normal 6.0-8.0 [facility] Comment on above: Performed By: #### C BCA, CMP, 41947-5, THYR #### [facility] ([id number]) [address] [place] [address] 03763 #### 59723-6, 2088-06 #### [facility] ([id number]) [address], [address] [place] [address] Sodium [Moles/Vol] 133 mmol/L Low 134-146 [facility] Comment on above: Performed By: #### C BCA, CMP, 84323-2, THYR #### [facility] ([id number]) [address] [place] [address] 86065 #### 80614-4, 2088-06 #### [facility] ([id number]) [address], [address] [place] [address] Urea nitrogen [Mass/Vol] 38 mg/dL High 5-27 [facility] Comment on above: Performed By: #### C BCA, CMP, 18919-3, THYR #### [facility] ([id number]) [address] [place] [address] 67831 #### 36157-9, 2088-06 #### [facility] ([id number]) [address], [address] [place] [address] LIPASEon 11-20-2023 Lipase [Catalytic activity/Vol] 35 U/L Normal 17-40 [facility] Comment on above: Performed By: #### C BCA, CMP, 17585-3, THYR #### [facility] ([id number]) [address] [place] [address] 05609 #### 30300-9, 2088-06 #### [facility] ([id number]) [address], [address] [place] [address] Lactate (P brendon) [Moles/Vol]o n 11-20-2023 LACTATE W/REFLEX 1.6 mmol/L Normal 0.4-2.0 [facility] Comment on above: Result Comment: Result did not trigger repeat Lactate, re-order if needed. Performed By: #### C MARQUES CMP, 44018-1, THYR #### [facility] ([id number]) [address] [place] [address] 35525 #### 27989-5, 2088-06 #### [facility] ([id number]) [address], [address] [place] [address] Natriuretic peptide B [Mass/ Vol]on 11-20-2023 Natriuretic peptide B (Bld) [Mass/Vol] 132 pg/mL High <100.0 [facility] Comment on above: Performed By: #### C MARQUES CMP, 04188-1, THYR #### [facility] ([id number]) [address] [place] [address] 42535 #### 63287-3, 2088-06 #### [facility] ([id number]) [address], [address] [place] [address] Troponin I.cardiac High sens itivity method [Mass/Vol]on 11-20-2023 1 HOUR TROP I, HIGH SENSITIVITY 15 ng/L Normal <16 [facility] Comment on above: Performed By: #### C MARQUES CMP, 75027-1, THYR #### [facility] ([id number]) [address] [place] [address] 74062 #### 32678-0, 2088-06 #### [facility] ([id number]) [address], [address] [place] [address] TROPONIN I, HIGH SENSITIVITY 14 ng/L Normal <16 [facility] Comment on above: Performed By: #### C BCA, CMP, 57473-1, THYR #### [facility] ([id number]) [address] [place] [address] 28349 #### 17003-9, 2088-06 #### [facility] ([id number]) [address], [address] [place] [address] CBC AND AUTO DIFFon 07-26-19 24 ABSOLUTE BASOPHIL 0.1 X10E9/L Normal 0.0-0.2 [facility] Comment on above: Performed By: #### C BCA, CMP, 99442-3, THYR #### [facility] ([id number]) [address] [place] [address] 22752 #### 76696-4, 2088-06 #### [facility] ([id number]) [address], [address] [place] [address] ABSOLUTE NEUTROPHIL 5.4 X10E9/L Normal 1.5-6.6 [facility] Comment on above: Performed By: #### C BCA, CMP, 55783-6, THYR #### [facility] ([id number]) [address] [place] [address] 05124 #### 21098-9, 2088-06 #### [facility] ([id number]) [address], [address] [place] [address] Basophils/100 WBC (Bld) 0.8 % Normal [facility] Comment on above: Performed By: #### C BCA, CMP, 60450-1, THYR #### [facility] ([id number]) [address] [place] [address] 07393 #### 29112-7, 2088-06 #### [facility] ([id number]) [address], [address] [place] [address] Eosinophils (Bld) [#/Vol] 0.3 10*3/uL Normal 0.0-0.4 [facility] Comment on above: Performed By: #### C BCA, CMP, 59823-8, THYR #### [facility] ([id number]) [address] [place] [address] 16681 #### 12867-9, 2088-06 #### [facility] ([id number]) [address], [address] [place] [address] Eosinophils/100 WBC (Bld) 3.7 % Normal [facility] Comment on above: Performed By: #### C MARQUES, CMP, 91899-5, THYR #### [facility] ([id number]) [address] [place] [address]141 #### 89252-0, 2088-06 #### [facility] ([id number]) [address], [address] [place] [address] Erythrocyte distribution width (RBC) [Ratio] 14.6 % Normal 11.5-15.0 [facility] Comment on above: Performed By: #### C MARQUES, CMP, 88842-9, THYR #### [facility] ([id number]) [address] [place] [address] #### 90329-2, 2088-06 #### [facility] ([id number]) [address], [address] [place] [address] Hematocrit (Bld) [Volume fraction] 31.9 % Low 35-47 [facility] Comment on above: Performed By: #### C MARQUES, CMP, 44537-0, THYR #### [facility] ([id number]) [address] [place] [address] #### 02896-5, 2088-06 #### [facility] ([id number]) [address], [address] [place] [address] Hemoglobin (Bld) [Mass/Vol] 10.9 g/dL Low 11.7-15.5 [facility] Comment on above: Performed By: #### C MARQUES, CMP, 20971-9, THYR #### [facility] ([id number]) [address] [place] [address] #### 63555-0, 2088-06 #### [facility] ([id number]) [address], [address] [place] [address] Lymphocytes (Bld) [#/Vol] 2.6 10*3/uL Normal 1.0-3.5 [facility] Comment on above: Performed By: #### C BCA, CMP, 56181-3, THYR #### [facility] ([id number]) [address] [place] [address] #### 61754-3, 2088-06 #### [facility] ([id number]) [address], [address] [place] [address] Lymphocytes/100 WBC (Bld) 28.6 % Normal [facility] Comment on above: Performed By: #### C BCA, CMP, 82333-0, THYR #### [facility] ([id number]) [address] [place] [address] #### 62432-0, 2088-06 #### [facility] ([id number]) [address], [address] [place] [address] [facility] (RBC) [Entitic mass] 27.4 pg Normal 27-34 [facility] Comment on above: Performed By: #### C BCA, CMP, 12530-9, THYR #### [facility] ([id number]) [address] [place] [address] 25087 #### 72704-7, 2088-06 #### [facility] ([id number]) [address], [address] [place] [address] MCHC (RBC) [Mass/Vol] 34.2 g/dL Normal 32-36 [facility] Comment on above: Performed By: #### C BCA, CMP, 40458-3, THYR #### [facility] ([id number]) [address] [place] [address] 92726 #### 00845-9, 2088-06 #### [facility] ([id number]) [address], [address] [place] [address] MCV (RBC) [Entitic vol] 80 fL Normal 80-100 [facility] Comment on above: Performed By: #### C BCA, CMP, 19752-8, THYR #### [facility] ([id number]) [address] [place] [address] 60507 #### 98535-4, 2088-06 #### [facility] ([id number]) [address], [address] [place] [address] Monocytes (Bld) [#/Vol] 0.8 10*3/uL Normal 0-0.9 [facility] Comment on above: Performed By: #### C BCA, CMP, 55628-7, THYR #### [facility] ([id number]) [address] [place] [address] 59764 #### 93890-7, 2088-06 #### [facility] ([id number]) [address], [address] [place] [address] Monocytes/100 WBC (Bld) 8.1 % Normal [facility] Comment on above: Performed By: #### C BCA, CMP, 07320-2, THYR #### [facility] ([id number]) [address] [place] [address] 94519 #### 59595-5, 2088-06 #### [facility] ([id number]) [address], [address] [place] [address] Neutrophils/100 WBC (Bld) 58.8 % Normal [facility] Comment on above: Performed By: #### C BCA, CMP, 37393-6, THYR #### [facility] ([id number]) [address] [place] [address] 78239 #### 55461-3, 2088-06 #### [facility] ([id number]) [address], [address] [place] [address] Platelet mean volume (Bld) [Entitic vol] 8.3 fL Normal 7-12 [facility] Comment on above: Performed By: #### C BCA, CMP, 45957-3, THYR #### [facility] ([id number]) [address] [place] [address] 60412 #### 12976-3, 2088-06 #### [facility] ([id number]) [address], [address] [place] [address] Platelets (Bld) [#/Vol] 271 10*3/uL Normal 150-450 [facility] Comment on above: Performed By: #### Teresa BCA, CMP, 52046-2, THYR #### [facility] ([id number]) [address] [place] [address] 77124 #### 48500-3, 2088-06 #### [facility] ([id number]) [address], [address] [place] [address] RBC COUNT 3.98 X10E12/L Normal 3.80-5.20 [facility] Comment on above: Performed By: #### C BCA, CMP, 91298-6, THYR #### [facility] ([id number]) [address] [place] [address] 65157 #### 80556-9, 2088-06 #### [facility] ([id number]) [address], [address] [place] [address] WBC (Bld) [#/Vol] 9.2 10*3/uL Normal 4.0-11.0 [facility] Comment on above: Performed By: #### C BCA, CMP, 45548-3, THYR #### [facility] ([id number]) [address] [place] [address] 45979 #### 56654-1, 2088-06 #### [facility] ([id number]) [address] [place] [address], [address] [place] [address] COMPREHENSIVE METABOLIC PANE Ace 07-26-2023 Albumin [Mass/Vol] 3.2 g/dL Normal 3.2-5.3 [facility] Comment on above: Performed By: #### C BCA, CMP, 82488-4, THYR #### [facility] ([id number]) [address] [place] [address] 86015 #### 34812-9, 2088-06 #### [facility] ([id number]) [address] [place] [address], [address] [place] [address] ALP [Catalytic activity/Vol] 105 U/L Normal 39-130 [facility] Comment on above: Performed By: #### C BCA, CMP, 41225-0, THYR #### [facility] ([id number]) [address] [place] [address] 43660 #### 64379-6, 2088-06 #### [facility] ([id number]) [address] [place] [address], [address] [place] [address] ALT [Catalytic activity/Vol] 10 U/L Normal 0-31 [facility] Comment on above: Performed By: #### C BCA, CMP, 31528-7, THYR #### [facility] ([id number]) [address] [place] [address] 75030 #### 29292-7, 2088-06 #### [facility] ([id number]) [address], [address] [place] [address] Anion gap [Moles/Vol] 12 mmol/L Normal 5-15 [facility] Comment on above: Performed By: #### C BCA, CMP, 48954-8, THYR #### [facility] ([id number]) [address] [place] [address] 60419 #### 61094-0, 2088-06 #### [facility] ([id number]) [address], [address] [place] [address] AST [Catalytic activity/Vol] 14 U/L Normal 0-41 [facility] Comment on above: Performed By: #### C BCA, CMP, 80450-3, THYR #### [facility] ([id number]) [address] [place] [address] 01464 #### 86268-2, 2088-06 #### [facility] ([id number]) [address], [address] [place] [address] Bilirubin [Mass/Vol] 0.4 mg/dL Normal 0.3-1.2 [facility] Comment on above: Performed By: #### C BCA, CMP, 15011-9, THYR #### [facility] ([id number]) [address] [place] [address] 97518 #### 99071-8, 2088-06 #### [facility] ([id number]) [address], [address] [place] [address] Calcium [Mass/Vol] 9.0 mg/dL Normal 8.5-10.5 [facility] Comment on above: Performed By: #### C BCA, CMP, 96853-4, THYR #### [facility] ([id number]) [address] [place] [address] 27155 #### 83805-5, 2088-06 #### [facility] ([id number]) [address], [address] [place] [address] Chloride [Moles/Vol] 96 mmol/L Low 98-109 [facility] Comment on above: Performed By: #### C BCA, CMP, 06841-7, THYR #### [facility] ([id number]) [address] [place] [address] 41325 #### 97641-1, 2088-06 #### [facility] ([id number]) [address], [address] [place] [address] CO2 [Moles/Vol] 22 mmol/L Normal 22-32 [facility] Comment on above: Performed By: #### C BCA, CMP, 51884-2, THYR #### [facility] ([id number]) [address] [place] [address] 43444 #### 20913-9, 2088-06 #### [facility] ([id number]) [address], [address] [place] [address] Creatinine [Mass/Vol] 2.38 mg/dL High 0.40-1.00 [facility] Comment on above: Result Comment: METH OD TRACEABLE TO IDMS STANDARD Performed By: #### C BCA, CMP, 32168-6, THYR #### [facility] ([id number]) [address] [place] [address] 11919 #### 01035-4, 2088-06 #### [facility] ([id number]) [address], [address] [place] [address] GFR/1.73 sq M.predicted among non-blacks MDRD (S/P/Bld) [Vol rate/Area] 23 mL/min/{1.73_m2} Low >59 [facility] Comment on above: Result Comment: Reported eGFR is based on the CKD-EPI 2020 equation that does not use a race coefficient. Performed By: #### C BCA, CMP, 59401-7, THYR #### [facility] ([id number]) [address] [place] [address] 82953 #### 30075-8, 2088-06 #### [facility] ([id number]) [address], [address] [place] [address] Glucose [Mass/Vol] 116 mg/dL High 65-99 [facility] Comment on above: Performed By: #### C BCA, CMP, 38938-6, THYR #### [facility] ([id number]) [address] [place] [address] 88913 #### 32219-2, 2088-06 #### [facility] ([id number]) [address], [address] [place] [address] Potassium [Moles/Vol] 3.3 mmol/L Low 3.5-5.0 [facility] Comment on above: Performed By: #### C BCA, CMP, 46588-0, THYR #### [facility] ([id number]) [address] [place] [address] 49612 #### 83012-6, 2088-06 #### [facility] ([id number]) [address], [address] [place] [address] Protein [Mass/Vol] 7.0 g/dL Normal 6.0-8.0 [facility] Comment on above: Performed By: #### C BCA, CMP, 23569-6, THYR #### [facility] ([id number]) [address] [place] [address] 44170 #### 44996-3, 2088-06 #### [facility] ([id number]) [address], [address] [place] [address] Sodium [Moles/Vol] 130 mmol/L Low 134-146 [facility] Comment on above: Performed By: #### C NIKKY MOHAN, 60792-1, THYR #### [facility] ([id number]) [address] [place] [address] 45433 #### 17955-6, 2088-06 #### [facility] ([id number]) [address], [address] [place] [address] Urea nitrogen [Mass/Vol] 43 mg/dL High 5-23 [facility] Comment on above: Performed By: #### C NIKKY MOHAN, 62485-1, THYR #### [facility] ([id number]) [address] [place] [address] 40173 #### 13486-8, 2088-06 #### [facility] ([id number]) [address], [address] [place] [address] Glucose Glucometer (BldC) [M ass/Vol]on 07-26-2023 Glucose [Mass/Vol] 174 mg/dL High 65-99 [facility] MAGNESIUMon 07-26-2023 Magnesium [Mass/Vol] 1.9 mg/dL Normal 1.8-2.6 [facility] Comment on above: Performed By: #### C MARQUES, CMP, 29627-5, THYR #### [facility] ([id number]) [address] [place] [address] 35103 #### 29032-3, 2088-06 #### [facility] ([id number]) [address], [address] [place] [address] CBC AND AUTO DIFFon 07-25-19 24 ABSOLUTE BASOPHIL 0.1 X10E9/L Normal 0.0-0.2 [facility] Comment on above: Performed By: #### C MARQUES, CMP, 37944-0, THYR #### [facility] ([id number]) [address] [place] [address] 37203 #### 54159-6, 2088-06 #### [facility] ([id number]) [address] [place] [address], [address] [place] [address] ABSOLUTE NEUTROPHIL 6.6 X10E9/L Normal 1.5-6.6 [facility] Comment on above: Performed By: #### C BCA, CMP, 50189-8, THYR #### [facility] ([id number]) [address] [place] [address] 73492 #### 00465-3, 2088-06 #### [facility] ([id number]) [address] [place] [address], [address] [place] [address] Basophils/100 WBC (Bld) 0.7 % Normal [facility] Comment on above: Performed By: #### C BCA, CMP, 50800-6, THYR #### [facility] ([id number]) [address] [place] [address] 25234 #### 30787-5, 2088-06 #### [facility] ([id number]) [address] [place] [address], [address] [place] [address] Eosinophils (Bld) [#/Vol] 0.3 10*3/uL Normal 0.0-0.4 [facility] Comment on above: Performed By: #### C BCA, CMP, 14844-8, THYR #### [facility] ([id number]) [address] [place] [address] 46724 #### 52764-5, 2088-06 #### [facility] ([id number]) [address] [place] [address], [address] [place] [address] Eosinophils/100 WBC (Bld) 2.8 % Normal [facility] Comment on above: Performed By: #### C BCA, CMP, 68664-5, THYR #### [facility] ([id number]) [address] [place] [address] 36395 #### 61280-0, 2088-06 #### [facility] ([id number]) [address], [address] [place] [address] Erythrocyte distribution width (RBC) [Ratio] 14.4 % Normal 11.5-15.0 [facility] Comment on above: Performed By: #### C BCA, CMP, 97737-1, THYR #### [facility] ([id number]) [address] [place] [address] 41062 #### 53898-8, 2088-06 #### [facility] ([id number]) [address], [address] [place] [address] Hematocrit (Bld) [Volume fraction] 36.8 % Normal 35-47 [facility] Comment on above: Performed By: #### C BCA, CMP, 00405-1, THYR #### [facility] ([id number]) [address] [place] [address] 39380 #### 18190-8, 2088-06 #### [facility] ([id number]) [address], [address] [place] [address] Hemoglobin (Bld) [Mass/Vol] 12.5 g/dL Normal 11.7-15.5 [facility] Comment on above: Performed By: #### C BCA, CMP, 12260-5, THYR #### [facility] ([id number]) [address] [place] [address] 91983 #### 19616-5, 2088-06 #### [facility] ([id number]) [address], [address] [place] [address] Lymphocytes (Bld) [#/Vol] 2.1 10*3/uL Normal 1.0-3.5 [facility] Comment on above: Performed By: #### C BCA, CMP, 11703-5, THYR #### [facility] ([id number]) [address] [place] [address] 91340 #### 04570-5, 2088-06 #### [facility] ([id number]) [address], [address] [place] [address] Lymphocytes/100 WBC (Bld) 20.8 % Normal [facility] Comment on above: Performed By: #### C BCA, CMP, 52027-3, THYR #### [facility] ([id number]) [address] [place] [address] 77381 #### 84082-7, 2088-06 #### [facility] ([id number]) [address], [address] [place] [address] MCH (RBC) [Entitic mass] 27.3 pg Normal 27-34 [facility] Comment on above: Performed By: #### C BCA, CMP, 98084-0, THYR #### [facility] ([id number]) [address] [place] [address] 04910 #### 46998-0, 2088-06 #### [facility] ([id number]) [address], [address] [place] [address] MCHC (RBC) [Mass/Vol] 34.0 g/dL Normal 32-36 [facility] Comment on above: Performed By: #### C BCA, CMP, 29003-5, THYR #### [facility] ([id number]) [address] [place] [address] 25624 #### 50419-4, 2088-06 #### [facility] ([id number]) [address], [address] [place] [address] MCV (RBC) [Entitic vol] 80 fL Normal 80-100 [facility] Comment on above: Performed By: #### C BCA, CMP, 12141-2, THYR #### [facility] ([id number]) [address] [place] [address] 01401 #### 42474-4, 2088-06 #### [facility] ([id number]) [address], [address] [place] [address] Monocytes (Bld) [#/Vol] 0.9 10*3/uL Normal 0-0.9 [facility] Comment on above: Performed By: #### C BCA, CMP, 78909-3, THYR #### [facility] ([id number]) [address] [place] [address] 04493 #### 78622-8, 2088-06 #### [facility] ([id number]) [address], [address] [place] [address] Monocytes/100 WBC (Bld) 8.8 % Normal [facility] Comment on above: Performed By: #### C BCA, CMP, 89090-2, THYR #### [facility] ([id number]) [address] [place] [address] 74448 #### 18993-3, 2088-06 #### [facility] ([id number]) [address], [address] [place] [address] Neutrophils/100 WBC (Bld) 66.9 % Normal [facility] Comment on above: Performed By: #### C BCA, CMP, 21558-0, THYR #### [facility] ([id number]) [address] [place] [address] 15990 #### 92723-4, 2088-06 #### [facility] ([id number]) [address], [address] [place] [address] Platelet mean volume (Bld) [Entitic vol] 8.5 fL Normal 7-12 [facility] Comment on above: Performed By: #### C BCA, CMP, 94552-0, THYR #### [facility] ([id number]) [address] [place] [address] 22504 #### 04309-2, 2088-06 #### [facility] ([id number]) [address], [address] [place] [address] Platelets (Bld) [#/Vol] 248 10*3/uL Normal 150-450 [facility] Comment on above: Performed By: #### C BCA, CMP, 40233-0, THYR #### [facility] ([id number]) [address] [place] [address] 48376 #### 54077-4, 2088-06 #### [facility] ([id number]) [address] [facility] [address] [place] [address] RBC COUNT 4.58 X10E12/L Normal 3.80-5.20 [facility] Comment on above: Performed By: #### C BCA, CMP, 88965-0, THYR #### [facility] ([id number]) [address] [place] [address] 10605 #### 29947-9, 2088-06 #### [facility] ([id number]) [address], [address] [place] [address] WBC (Bld) [#/Vol] 9.9 10*3/uL Normal 4.0-11.0 [facility] Comment on above: Performed By: #### C BCA, CMP, 91494-3, THYR #### [facility] ([id number]) [address] [place] [address] 08326 #### 15513-9, 2088-06 #### [facility] ([id number]) [address], [address] [place] [address] COMPREHENSIVE METABOLIC PANE Ace 07-25-2023 Albumin [Mass/Vol] 3.7 g/dL Normal 3.2-5.3 [facility] Comment on above: Performed By: #### C BCA, CMP, 54045-3, THYR #### [facility] ([id number]) [address] [place] [address] 49394 #### 04605-6, 2088-06 #### [facility] ([id number]) [address], [address] [place] [address] ALP [Catalytic activity/Vol] 119 U/L Normal 39-130 [facility] Comment on above: Performed By: #### C BCA, CMP, 83775-0, THYR #### [facility] ([id number]) [address] [place] [address] 58673 #### 57630-3, 2088-06 #### [facility] ([id number]) [address], [address] [place] [address] ALT [Catalytic activity/Vol] 14 U/L Normal 0-31 [facility] Comment on above: Performed By: #### C BCA, CMP, 41281-1, THYR #### [facility] ([id number]) [address] [place] [address] 25914 #### 77182-2, 2088-06 #### [facility] ([id number]) [address], [address] [place] [address] Anion gap [Moles/Vol] 13 mmol/L Normal 5-15 [facility] Comment on above: Performed By: #### C BCA, CMP, 88844-7, THYR #### [facility] ([id number]) [address] [place] [address] 04799 #### 20667-6, 2089-1 #### [facility] ([id number]) [address], [address] [place] [address] AST [Catalytic activity/Vol] 20 U/L Normal 0-41 [facility] Comment on above: Performed By: #### C BCA, CMP, 11514-8, THYR #### [facility] ([id number]) [address] [place] [address] 06332 #### 71647-0, 2088-06 #### [facility] ([id number]) [address], [address] [place] [address] Bilirubin [Mass/Vol] 0.7 mg/dL Normal 0.3-1.2 [facility] Comment on above: Performed By: #### C BCA, CMP, 70421-0, THYR #### [facility] ([id number]) [address] [place] [address] 05477 #### 33213-6, 2088-06 #### [facility] ([id number]) [address], [address] [place] [address] Calcium [Mass/Vol] 9.1 mg/dL Normal 8.5-10.5 [facility] Comment on above: Performed By: #### C BCA, CMP, 30129-0, THYR #### [facility] ([id number]) [address] [place] [address] 37738 #### 88299-5, 2088-06 #### [facility] ([id number]) [address], [address] [place] [address] Chloride [Moles/Vol] 97 mmol/L Low 98-109 [facility] Comment on above: Performed By: #### C BCA, CMP, 19650-3, THYR #### [facility] ([id number]) [address] [place] [address] #### 97749-3, 2088-06 #### [facility] ([id number]) [address], [address] [place] [address] CO2 [Moles/Vol] 21 mmol/L Low 22-32 [facility] Comment on above: Performed By: #### C MARQUES, CMP, 92208-2, THYR #### [facility] ([id number]) [address] [place] [address] #### 14997-1, 2088-06 #### [facility] ([id number]) [address], [address] [place] [address] Creatinine [Mass/Vol] 2.04 mg/dL High 0.40-1.00 [facility] Comment on above: Result Comment: METH OD TRACEABLE TO IDMS STANDARD Performed By: #### C MARQUES, CMP, 34001-9, THYR #### [facility] ([id number]) [address] [place] [address] #### 16261-4, 2088-06 #### [facility] ([id number]) [address], [address] [place] [address] GFR/1.73 sq M.predicted among non-blacks MDRD (S/P/Bld) [Vol rate/Area] 27 mL/min/{1.73_m2} Low >59 [facility] Comment on above: Result Comment: Reported eGFR is based on the CKD-EPI 1 equation that does not use a race coefficient. Performed By: #### C BCA, CMP, 17445-8, THYR #### [facility] ([id number]) [address] [place] [address] #### 18814-6, 2088-06 #### [facility] ([id number]) [address], [address] [place] [address] Glucose [Mass/Vol] 187 mg/dL High 65-99 [facility] Comment on above: Performed By: #### C BCA, CMP, 04550-7, THYR #### [facility] ([id number]) [address] [place] [address] #### 89715-9, 2088-06 #### [facility] ([id number]) [address], [address] [place] [address] Potassium [Moles/Vol] 3.5 mmol/L Normal 3.5-5.0 [facility] Comment on above: Performed By: #### C BCA, CMP, 67597-4, THYR #### [facility] ([id number]) [address] [place] [address] #### 08197-5, 2088-06 #### [facility] ([id number]) [address], [address] [place] [address] Protein [Mass/Vol] 7.9 g/dL Normal 6.0-8.0 [facility] Comment on above: Performed By: #### C BCA, CMP, 11742-8, THYR #### [facility] ([id number]) [address] [place] [address] 17095 #### 35972-0, 2088-06 #### [facility] ([id number]) [address], [address] [place] [address] Sodium [Moles/Vol] 131 mmol/L Low 134-146 [facility] Comment on above: Performed By: #### C BCA, CMP, 60573-8, THYR #### [facility] ([id number]) [address] [place] [address] 23982 #### 87446-4, 2088-06 #### [facility] ([id number]) [address], [address] [place] [address] Urea nitrogen [Mass/Vol] 34 mg/dL High 5-23 [facility] Comment on above: Performed By: #### C MARQUES, NIKKY, 12048-3, THYR #### [facility] ([id number]) [address] [place] [address] 66426 #### 23835-6, 2088-06 #### [facility] ([id number]) [address], [address] [place] [address] Glucose Glucometer (BldC) [M ass/Vol]on 07-25-2023 Glucose [Mass/Vol] 245 mg/dL High 65-99 [facility] Glucose [Mass/Vol] 183 mg/dL High 65-99 [facility] Glucose [Mass/Vol] 207 mg/dL High 65-99 [facility] MAGNESIUMon 07-25-2023 Magnesium [Mass/Vol] 2.3 mg/dL Normal 1.8-2.6 [facility] Comment on above: Performed By: #### C MARQUES, NIKKY, 15454-7, THYR #### [facility] ([id number]) [address] [place] [address] 86670 #### 58570-7, 2088-06 #### [facility] ([id number]) [address], [address] [place] [address] POTASSIUMon 07-25-2023 Potassium [Moles/Vol] 4.1 mmol/L Normal 3.5-5.0 [facility] Comment on above: Performed By: #### C MARQUES, CMP, 47667-1, THYR #### [facility] ([id number]) [address] [place] [address] 03329 #### 53772-4, 2088-06 #### [facility] ([id number]) [address], [address] [place] [address] CBC AND AUTO DIFFon 07-24-19 24 ABSOLUTE BASOPHIL 0.1 X10E9/L Normal 0.0-0.2 [facility] Comment on above: Performed By: #### C BCA, CMP, 57435-1, THYR #### [facility] ([id number]) [address] [place] [address] 27202 #### 82565-9, 2088-06 #### [facility] ([id number]) [address], [address] [place] [address] ABSOLUTE NEUTROPHIL 5.4 X10E9/L Normal 1.5-6.6 [facility] Comment on above: Performed By: #### C BCA, CMP, 20673-3, THYR #### [facility] ([id number]) [address] [place] [address] 83708 #### 96024-7, 2088-06 #### [facility] ([id number]) [address], [address] [place] [address] Basophils/100 WBC (Bld) 0.7 % Normal [facility] Comment on above: Performed By: #### C BCA, CMP, 75426-5, THYR #### [facility] ([id number]) [address] [place] [address] 66359 #### 67335-1, 2088-06 #### [facility] ([id number]) [address], [address] [place] [address] Eosinophils (Bld) [#/Vol] 0.2 10*3/uL Normal 0.0-0.4 [facility] Comment on above: Performed By: #### C BCA, CMP, 57680-0, THYR #### [facility] ([id number]) [address] [place] [address] 35581 #### 12942-1, 2088-06 #### [facility] ([id number]) [address], [address] [place] [address] Eosinophils/100 WBC (Bld) 2.7 % Normal [facility] Comment on above: Performed By: #### C NIKKY MOHAN, 70688-9, THYR #### [facility] ([id number]) [address] [place] [address] 71828 #### 83284-3, 2088-06 #### [facility] ([id number]) [address], [address] [place] [address] Erythrocyte distribution width (RBC) [Ratio] 14.3 % Normal 11.5-15.0 [facility] Comment on above: Performed By: #### C MARQUES CMP, 62705-9, THYR #### [facility] ([id number]) [address] [place] [address] 29310 #### 80244-7, 2088-06 #### [facility] ([id number]) [address], [address] [place] [address] Hematocrit (Bld) [Volume fraction] 35.1 % Normal 35-47 [facility] Comment on above: Performed By: #### Teresa MOHAN CMP, 37933-2, THYR #### [facility] ([id number]) [address] [place] [address] 00981 #### 64603-9, 2088-06 #### [facility] ([id number]) [address], [address] [place] [address] Hemoglobin (Bld) [Mass/Vol] 12.0 g/dL Normal 11.7-15.5 [facility] Comment on above: Performed By: #### Teresa MOHAN CMP, 53664-1, THYR #### [facility] ([id number]) [address] [place] [address] 90998 #### 87445-4, 2088-06 #### [facility] ([id number]) [address], [address] [place] [address] Lymphocytes (Bld) [#/Vol] 2.3 10*3/uL Normal 1.0-3.5 [facility] Comment on above: Performed By: #### C BCA, CMP, 04188-2, THYR #### [facility] ([id number]) [address] [place] [address] 41298 #### 90921-4, 2088-06 #### [facility] ([id number]) [address], [address] [place] [address] Lymphocytes/100 WBC (Bld) 26.1 % Normal [facility] Comment on above: Performed By: #### C BCA, CMP, 76429-1, THYR #### [facility] ([id number]) [address] [place] [address] 83491 #### 21477-6, 2088-06 #### [facility] ([id number]) [address], [address] [place] [address] MCH (RBC) [Entitic mass] 27.2 pg Normal 27-34 [facility] Comment on above: Performed By: #### C BCA, CMP, 01839-2, THYR #### [facility] ([id number]) [address] [place] [address] 04111 #### 54993-8, 2088-06 #### [facility] ([id number]) [address], [address] [place] [address] MCHC (RBC) [Mass/Vol] 34.2 g/dL Normal 32-36 [facility] Comment on above: Performed By: #### C BCA, CMP, 33023-1, THYR #### [facility] ([id number]) [address] [place] [address] 80714 #### 25909-4, 2088-06 #### [facility] ([id number]) [address], [address] [place] [address] MCV (RBC) [Entitic vol] 80 fL Normal 80-100 [facility] Comment on above: Performed By: #### C BCA, CMP, 17762-2, THYR #### [facility] ([id number]) [address] [place] [address] 42418 #### 17903-2, 2088-06 #### [facility] ([id number]) [address], [address] [place] [address] Monocytes (Bld) [#/Vol] 0.9 10*3/uL Normal 0-0.9 [facility] Comment on above: Performed By: #### C BCA, CMP, 29589-4, THYR #### [facility] ([id number]) [address] [place] [address] 61285 #### 94124-2, 2088-06 #### [facility] ([id number]) [address], [address] [place] [address] Monocytes/100 WBC (Bld) 9.8 % Normal [facility] Comment on above: Performed By: #### C BCA, CMP, 60120-7, THYR #### [facility] ([id number]) [address] [place] [address] 42878 #### 56484-5, 2088-06 #### [facility] ([id number]) [address], [address] [place] [address] Neutrophils/100 WBC (Bld) 60.7 % Normal [facility] Comment on above: Performed By: #### C BCA, CMP, 79615-0, THYR #### [facility] ([id number]) [address] [place] [address] 35019 #### 96441-0, 2088-06 #### [facility] ([id number]) [address], [address] [place] [address] Platelet mean volume (Bld) [Entitic vol] 8.7 fL Normal 7-12 [facility] Comment on above: Performed By: #### C BCA, CMP, 29624-5, THYR #### [facility] ([id number]) [address] [place] [address] 29958 #### 97850-4, 2088-06 #### [facility] ([id number]) [facility], [address] [place] [address] Platelets (Bld) [#/Vol] 288 10*3/uL Normal 150-450 [facility] Comment on above: Performed By: #### C BCA, CMP, 43943-0, THYR #### [facility] ([id number]) [address] [place] [address] 50115 #### 08525-5, 2088-06 #### [facility] ([id number]) [address] [place] [address], [address] [place] [address] RBC COUNT 4.41 X10E12/L Normal 3.80-5.20 [facility] Comment on above: Performed By: #### C BCA, CMP, 44637-8, THYR #### [facility] ([id number]) [address] [place] [address] 31034 #### 65152-9, 2088-06 #### [facility] ([id number]) [address] [place] [address], [address] [place] [address] WBC (Bld) [#/Vol] 8.8 10*3/uL Normal 4.0-11.0 [facility] Comment on above: Performed By: #### C BCA, CMP, 71845-2, THYR #### [facility] ([id number]) [address] [place] [address] 25145 #### 63474-3, 2088-06 #### [facility] ([id number]) [address], [address] [place] [address] COMPREHENSIVE METABOLIC PANE Ace 07-24-2023 Albumin [Mass/Vol] 3.6 g/dL Normal 3.2-5.3 [facility] Comment on above: Performed By: #### C BCA, CMP, 24229-7, THYR #### [facility] ([id number]) [address] [place] [address] 28902 #### 28146-6, 2088-06 #### [facility] ([id number]) [address], [address] [place] [address] ALP [Catalytic activity/Vol] 120 U/L Normal 39-130 [facility] Comment on above: Performed By: #### C BCA, CMP, 90113-2, THYR #### [facility] ([id number]) [address] [place] [address] 71351 #### 78936-5, 2088-06 #### [facility] ([id number]) [address], [address] [place] [address] ALT [Catalytic activity/Vol] 11 U/L Normal 0-31 [facility] Comment on above: Performed By: #### C BCA, CMP, 85362-8, THYR #### [facility] ([id number]) [address] [place] [address] 25388 #### 62224-5, 2088-06 #### [facility] ([id number]) [address], [address] [place] [address] Anion gap [Moles/Vol] 11 mmol/L Normal 5-15 [facility] Comment on above: Performed By: #### C BCA, CMP, 21473-3, THYR #### [facility] ([id number]) [address] [place] [address] 48385 #### 31952-9, 2088-06 #### [facility] ([id number]) [address], [address] [place] [address] AST [Catalytic activity/Vol] 15 U/L Normal 0-41 [facility] Comment on above: Performed By: #### C BCA, CMP, 03268-8, THYR #### [facility] ([id number]) [address] [place] [address] 88351 #### 70129-5, 2088-06 #### [facility] ([id number]) [address], [address] [place] [address] Bilirubin [Mass/Vol] 0.5 mg/dL Normal 0.3-1.2 [facility] Comment on above: Performed By: #### C BCA, CMP, 48821-7, THYR #### [facility] ([id number]) [address] [place] [address] 89940 #### 33913-1, 2088-06 #### [facility] ([id number]) [address], [address] [place] [address] Calcium [Mass/Vol] 9.4 mg/dL Normal 8.5-10.5 [facility] Comment on above: Performed By: #### C BCA, CMP, 28252-5, THYR #### [facility] ([id number]) [address] [place] [address] 67824 #### 45355-6, 2088-06 #### [facility] ([id number]) [address], [address] [place] [address] Chloride [Moles/Vol] 101 mmol/L Normal 98-109 [facility] Comment on above: Performed By: #### C BCA, CMP, 07013-6, THYR #### [facility] ([id number]) [address] [place] [address] 46841 #### 18580-5, 2088-06 #### [facility] ([id number]) [address], [address] [place] [address] CO2 [Moles/Vol] 24 mmol/L Normal 22-32 [facility] Comment on above: Performed By: #### C BCA, CMP, 91497-5, THYR #### [facility] ([id number]) [address] [place] [address] 63401 #### 19125-0, 2088-06 #### [facility] ([id number]) [address], [address] [place] [address] Creatinine [Mass/Vol] 2.02 mg/dL High 0.40-1.00 [facility] Comment on above: Result Comment: METH OD TRACEABLE TO IDMS STANDARD Performed By: #### C BCA, CMP, 24153-9, THYR #### [facility] ([id number]) [address] [place] [address] 27912 #### 96886-6, 2088-06 #### [facility] ([id number]) [address], [address] [place] [address] GFR/1.73 sq M.predicted among non-blacks MDRD (S/P/Bld) [Vol rate/Area] 28 mL/min/{1.73_m2} Low >59 [facility] Comment on above: Result Comment: Reported eGFR is based on the CKD-EPI 2020 equation that does not use a race coefficient. Performed By: #### C BCA, CMP, 43198-2, THYR #### [facility] ([id number]) [address] [place] [address] 76586 #### 97483-7, 2088-06 #### [facility] ([id number]) [address], [address] [place] [address] Glucose [Mass/Vol] 68 mg/dL Normal 65-99 [facility] Comment on above: Performed By: #### C BCA, CMP, 52324-0, THYR #### [facility] ([id number]) [address] [place] [address] 14594 #### 68676-4, 2088-06 #### [facility] ([id number]) [address], [address] [place] [address] Potassium [Moles/Vol] 2.9 mmol/L Low 3.5-5.0 [facility] Comment on above: Performed By: #### C BCA, CMP, 74956-2, THYR #### [facility] ([id number]) [address] [place] [address] 27850 #### 35581-3, 2088-06 #### [facility] ([id number]) [address], [address] [place] [address] Protein [Mass/Vol] 7.9 g/dL Normal 6.0-8.0 [facility] Comment on above: Performed By: #### C BCA, CMP, 03249-4, THYR #### [facility] ([id number]) [address] [place] [address] 04561 #### 86189-8, 2088-06 #### [facility] ([id number]) [address], [address] [place] [address] Sodium [Moles/Vol] 136 mmol/L Normal 134-146 [facility] Comment on above: Performed By: #### C BCA, CMP, 47621-2, THYR #### [facility] ([id number]) [address] [place] [address] 81604 #### 06941-5, 2088-06 #### [facility] ([id number]) [address], [address] [place] [address] Urea nitrogen [Mass/Vol] 35 mg/dL High 5-23 [facility] Comment on above: Performed By: #### C NIKKY MOHAN, 15729-7, THYR #### [facility] ([id number]) [address] [place] [address] 35336 #### 85697-7, 2088-06 #### [facility] ([id number]) [address], [address] [place] [address] Glucose Glucometer (BldC) [M ass/Vol]on 07-24-2023 Glucose [Mass/Vol] 245 mg/dL High 65-99 [facility] Glucose [Mass/Vol] 204 mg/dL High 65-99 [facility] Glucose [Mass/Vol] 134 mg/dL High 65-99 [facility] MAGNESIUMon 07-24-2023 Magnesium [Mass/Vol] 2.6 mg/dL Normal 1.8-2.6 [facility] Comment on above: Performed By: #### C NIKKY MOHAN, 57774-4, THYR #### [facility] ([id number]) [address] [place] [address] 88991 #### 08113-8, 2088-06 #### [facility] ([id number]) [address], [address] [place] [address] Magnesium [Mass/Vol] 1.6 mg/dL Low 1.8-2.6 [facility] Comment on above: Performed By: #### C NIKKY MOHAN, 30609-9, THYR #### [facility] ([id number]) [address] [place] [address] 89271 #### 85593-0, 2088-06 #### [facility] ([id number]) [address], [address] [place] [address] POTASSIUMon 07-24-2023 Potassium [Moles/Vol] 3.9 mmol/L Normal 3.5-5.0 [facility] Comment on above: Performed By: #### C BCA, CMP, 02025-0, THYR #### [facility] ([id number]) [address] [place] [address] 30553 #### 88513-3, 2088-06 #### [facility] ([id number]) [address], [address] [place] [address] CBC AND AUTO DIFFon 07-23-19 ABSOLUTE BASOPHIL 0.1 X10E9/L Normal 0.0-0.2 [facility] Comment on above: Performed By: #### C BCA, CMP, 37012-9, THYR #### [facility] ([id number]) [address] [place] [address] 56216 #### 12690-4, 2088-06 #### [facility] ([id number]) [address], [address] [place] [address] ABSOLUTE NEUTROPHIL 7.1 X10E9/L High 1.5-6.6 [facility] Comment on above: Performed By: #### C BCA, CMP, 72354-8, THYR #### [facility] ([id number]) [address] [place] [address] 79813 #### 78854-5, 2088-06 #### [facility] ([id number]) [address], [address] [place] [address] Basophils/100 WBC (Bld) 0.9 % Normal [facility] Comment on above: Performed By: #### C BCA, CMP, 50161-8, THYR #### [facility] ([id number]) [address] [place] [address] [place] [address] #### 53673-3, 2088-06 #### [facility] ([id number]) [address] [place] [address], [facility] [address] [place] [address] Eosinophils (Bld) [#/Vol] 0.3 10*3/uL Normal 0.0-0.4 [facility] Comment on above: Performed By: #### C BCA, CMP, 27376-0, THYR #### [facility] ([id number]) [address] [place] [address] 59738 #### 65517-2, 2088-06 #### [facility] ([id number]) [address] [place] [address], [address] [address] Eosinophils/100 WBC (Bld) 2.5 % Normal [facility] Comment on above: Performed By: #### C BCA, CMP, 34233-5, THYR #### [facility] ([id number]) [address] [place] [address] 69994 #### 94300-0, 2088-06 #### [facility] ([id number]) [address] [place] [address], [facility] [address] [place] [address] Erythrocyte distribution width (RBC) [Ratio] 14.7 % Normal 11.5-15.0 [facility] Comment on above: Performed By: #### C BCA, CMP, 11513-2, THYR #### [facility] ([id number]) [address] [place] [address] 25134 #### 38839-6, 2088-06 #### [facility] ([id number]) [address] [place] [address], [address] [place] [address] Hematocrit (Bld) [Volume fraction] 39.8 % Normal 35-47 [facility] Comment on above: Performed By: #### C BCA, CMP, 97925-4, THYR #### [facility] ([id number]) [address] [place] [address] 04496 #### 82087-4, 2088-06 #### [facility] ([id number]) [address], [address] [place] [address] Hemoglobin (Bld) [Mass/Vol] 13.6 g/dL Normal 11.7-15.5 [facility] Comment on above: Performed By: #### C BCA, CMP, 12431-9, THYR #### [facility] ([id number]) [address] [place] [address] 80947 #### 21751-8, 2088-06 #### [facility] ([id number]) [address], [address] [place] [address] Lymphocytes (Bld) [#/Vol] 2.4 10*3/uL Normal 1.0-3.5 [facility] Comment on above: Performed By: #### C BCA, CMP, 72932-9, THYR #### [facility] ([id number]) [address] [place] [address] 76215 #### 28830-4, 2088-06 #### [facility] ([id number]) [address], [address] [place] [address] Lymphocytes/100 WBC (Bld) 21.8 % Normal [facility] Comment on above: Performed By: #### C BCA, CMP, 26808-4, THYR #### [facility] ([id number]) [address] [place] [address] 05740 #### 86890-5, 2088-06 #### [facility] ([id number]) [address], [address] [place] [address] MCH (RBC) [Entitic mass] 27.5 pg Normal 27-34 [facility] Comment on above: Performed By: #### C BCA, CMP, 06208-1, THYR #### [facility] ([id number]) [address] [place] [address] #### 64242-1, 2088-06 #### [facility] ([id number]) [address], [address] [place] [address] MCHC (RBC) [Mass/Vol] 34.2 g/dL Normal 32-36 [facility] Comment on above: Performed By: #### C BCA, CMP, 70621-4, THYR #### [facility] ([id number]) [address] [place] [address] #### 50847-0, 2088-06 #### [facility] ([id number]) [address], [address] [place] [address] MCV (RBC) [Entitic vol] 80 fL Normal 80-100 [facility] Comment on above: Performed By: #### C BCA, CMP, 67763-0, THYR #### [facility] ([id number]) [address] [place] [address] #### 27305-9, 2088-06 #### [facility] ([id number]) [address], [address] [place] [address] Monocytes (Bld) [#/Vol] 1.0 10*3/uL High 0-0.9 [facility] Comment on above: Performed By: #### C BCA, CMP, 50167-0, THYR #### [facility] ([id number]) [address] [place] [address] #### 07823-5, 2088-06 #### [facility] ([id number]) [address], [address] [place] [address] Monocytes/100 WBC (Bld) 8.8 % Normal [facility] Comment on above: Performed By: #### C BCA, CMP, 03796-9, THYR #### [facility] ([id number]) [address] [place] [address] #### 58051-0, 2088-06 #### [facility] ([id number]) [address], [address] [place] [address] Neutrophils/100 WBC (Bld) 66.0 % Normal [facility] Comment on above: Performed By: #### C BCA, CMP, 93217-4, THYR #### [facility] ([id number]) [address] [place] [address] #### 83336-6, 2088-06 #### [facility] ([id number]) [address], [address] [place] [address] Platelet mean volume (Bld) [Entitic vol] 8.1 fL Normal 7-12 [facility] Comment on above: Performed By: #### C BCA, CMP, 25083-2, THYR #### [facility] ([id number]) [address] [place] [address] #### 05569-2, 2088-06 #### [facility] ([id number]) [address], [address] [place] [address] Platelets (Bld) [#/Vol] 326 10*3/uL Normal 150-450 [facility] Comment on above: Performed By: #### C BCA, CMP, 83459-1, THYR #### [facility] ([id number]) [address] [place] [address] #### 37573-8, 2088-06 #### [facility] ([id number]) [address], [address] [place] [address] RBC COUNT 4.95 X10E12/L Normal 3.80-5.20 [facility] Comment on above: Performed By: #### C BCA, CMP, 13002-4, THYR #### [facility] ([id number]) [address] [place] [address] #### 10321-8, 2088-06 #### [facility] ([id number]) [address], [address] [place] [address] WBC (Bld) [#/Vol] 10.8 10*3/uL Normal 4.0-11.0 [facility] Comment on above: Performed By: #### C BCA, CMP, 57009-9, THYR #### [facility] ([id number]) [address] [place] [address] #### 95942-0, 2088-06 #### [facility] ([id number]) [address], [address] [place] [address] COMPREHENSIVE METABOLIC PANE Ace 07-23-2023 Albumin [Mass/Vol] 4.1 g/dL Normal 3.2-5.3 [facility] Comment on above: Performed By: #### C BCA, CMP, 70049-1, THYR #### [facility] ([id number]) [address] [place] [address] 237[address] #### 24034-0, 2088-06 #### [facility] ([id number]) [address], [address] [place] [address] ALP [Catalytic activity/Vol] 133 U/L High 39-130 [facility] Comment on above: Performed By: #### C BCA, CMP, 41688-9, THYR #### [facility] ([id number]) [address] [place] [address] 12572 #### 98053-1, 2088-06 #### [facility] ([id number]) [address], [address] [place] [address] ALT [Catalytic activity/Vol] 12 U/L Normal 0-31 [facility] Comment on above: Performed By: #### C BCA, CMP, 77848-7, THYR #### [facility] ([id number]) [address] [place] [address] 88835 #### 50985-3, 2088-06 #### [facility] ([id number]) [address], [address] [place] [address] Anion gap [Moles/Vol] 13 mmol/L Normal 5-15 [facility] Comment on above: Performed By: #### C MARQUES CMP, 48113-9, THYR #### [facility] ([id number]) [address] [place] [address] 17433 #### 68354-5, 2088-06 #### [facility] ([id number]) [address], [address] [place] [address] AST [Catalytic activity/Vol] 18 U/L Normal 0-41 [facility] Comment on above: Performed By: #### C BCA, CMP, 22451-3, THYR #### [facility] ([id number]) [address] [place] [address] 61814 #### 64319-0, 2088-06 #### [facility] ([id number]) [address], [address] [place] [address] Bilirubin [Mass/Vol] 0.4 mg/dL Normal 0.3-1.2 [facility] Comment on above: Performed By: #### C BCA, CMP, 55975-0, THYR #### [facility] ([id number]) [address] [place] [address] 01121 #### 80276-3, 2088-06 #### [facility] ([id number]) [address], [address] [place] [address] Calcium [Mass/Vol] 9.6 mg/dL Normal 8.5-10.5 [facility] Comment on above: Performed By: #### C BCA, CMP, 92955-3, THYR #### [facility] ([id number]) [address] [place] [address] 04983 #### 51025-3, 2088-06 #### [facility] ([id number]) [address], [address] [place] [address] Chloride [Moles/Vol] 99 mmol/L Normal 98-109 [facility] Comment on above: Performed By: #### C BCA, CMP, 06049-9, THYR #### [facility] ([id number]) [address] [place] [address] 79666 #### 51055-0, 2088-06 #### [facility] ([id number]) [address], [address] [place] [address] CO2 [Moles/Vol] 23 mmol/L Normal 22-32 [facility] Comment on above: Performed By: #### C BCA, CMP, 02860-5, THYR #### [facility] ([id number]) [address] [place] [address] #### 27960-1, 2088-06 #### [facility] ([id number]) [address], [address] [place] [address] Creatinine [Mass/Vol] 2.14 mg/dL High 0.40-1.00 [facility] Comment on above: Result Comment: METH OD TRACEABLE TO IDMS STANDARD Performed By: #### C BCA, CMP, 70171-5, THYR #### [facility] ([id number]) [address] [place] [address] 77552 #### 52257-9, 2088-06 #### [facility] ([id number]) [address], [address] [place] [address] GFR/1.73 sq M.predicted among non-blacks MDRD (S/P/Bld) [Vol rate/Area] 26 mL/min/{1.73_m2} Low >59 [facility] Comment on above: Result Comment: Reported eGFR is based on the CKD-EPI 2020 equation that does not use a race coefficient. Performed By: #### C BCA, CMP, 56534-5, THYR #### [facility] ([id number]) [address] [place] [address] 15976 #### 53288-1, 2088-06 #### [facility] ([id number]) [address], [address] [place] [address] Glucose [Mass/Vol] 159 mg/dL High 65-99 [facility] Comment on above: Performed By: #### C BCA, CMP, 42685-6, THYR #### [facility] ([id number]) [address] [place] [address] 47103 #### 40748-7, 2088-06 #### [facility] ([id number]) [address], [address] [place] [address] Potassium [Moles/Vol] 3.4 mmol/L Low 3.5-5.0 [facility] Comment on above: Performed By: #### C BCA, CMP, 79436-0, THYR #### [facility] ([id number]) [address] [place] [address] 24359 #### 57387-0, 2088-06 #### [facility] ([id number]) [address], [address] [place] [address] Protein [Mass/Vol] 9.4 g/dL High 6.0-8.0 [facility] Comment on above: Performed By: #### C BCA, CMP, 42669-6, THYR #### [facility] ([id number]) [address] [place] [address] 81103 #### 28952-3, 2088-06 #### [facility] ([id number]) [address], [address] [place] [address] Sodium [Moles/Vol] 135 mmol/L Normal 134-146 [facility] Comment on above: Performed By: #### C BCA, CMP, 58121-3, THYR #### [facility] ([id number]) [address] [place] [address] 68363 #### 64072-1, 2088-06 #### [facility] ([id number]) [address], [address] [place] [address] Urea nitrogen [Mass/Vol] 38 mg/dL High 5-23 [facility] Comment on above: Performed By: #### C BCA, CMP, 55135-2, THYR #### [facility] ([id number]) [address] [place] [address] 88348 #### 73915-4, 2088-06 #### [facility] ([id number]) [address], [address] [place] [address] CT BRAIN WO CONT STROKE ALER Ton [...] Dorsey MD on 07/23/2023 9:24 AM Normal [facility] CT CTA CAROTIDon 07-23-2023 CT CTA [...] Romero MD on 07/23/2023 9:36 AM Normal [facility] CT CTA HEADon 07-23-2023 CT CTA [...] Seals MD on 07/23/2023 9:36 AM Normal [facility] DIRECT LDLon 07-23-2023 Cholesterol in LDL [Mass/Vol] 190 mg/dL High <130 [facility] Comment on above: Result Comment: LDL <100 mg/dL - Desirable LDL 130-159 mg/dL - Borderline High Risk LDL >160 mg/dL - High Risk Performed By: #### C MARQUES, [facility], 31241-5, THYR #### [facility] ([id number]) [address] [place] [address], [place] [address] #### 33175-4, 2088-06 #### [facility] ([id number]) [address] [place] [address], [address] [place] [address] Glucose Glucometer (BldC) [M ass/Vol]on 07-23-2023 Glucose [Mass/Vol] 116 mg/dL High 65-99 [facility] Glucose [Mass/Vol] 155 mg/dL High 65-99 [facility] Glucose [Mass/Vol] 109 mg/dL High 65-99 [facility] Glucose [Mass/Vol] 155 mg/dL High 65-99 [facility] HGB A1C (GLYCO-HGB)on 2023 Glucose [Mass/Vol] 171 mg/dL Normal [facility] Comment on above: Performed By: #### C MARQUES, CMP, 53355-1, THYR #### [facility] ([id number]) [address] [place] [address] 00303 #### 94575-3, 2088-06 #### [facility] ([id number]) [address], [address] [place] [address] HbA1c (Bld) [Mass fraction] 7.6 % High 4.4-5.6 [facility] Comment on above: Result Comment: NOTE ADA Guidelines Result HgbA1c Normal : less than 5.7 % Prediabetes : 5.7 % to 6.4 % Diabetes : > 6.4 % Use with caution in patients with abnormal hemoglobin variants as the half-life of red blood cells and in vivo glycation rates are affected. Performed By: #### C MARQUES, CMP, 80737-6, THYR #### [facility] ([id number]) [address] [place] [address] 51343 #### 85842-6, 2088-06 #### [facility] ([id number]) [address], [address] [place] [address] Lipid 1996 panelon Cholesterol [Mass/Vol] 327 mg/dL High 150-200 [facility] Comment on above: Performed By: #### Teresa BCA, CMP, 23496-5, THYR #### [facility] ([id number]) [address] [place] [address] 88056 #### 24254-7, 2088-06 #### [facility] ([id number]) [address], [address] [place] [address] Cholesterol in HDL [Mass/Vol] 36 mg/dL Low >39 [facility] Comment on above: Result Comment: HDL <40 mg/dL - High Risk HDL > or = 40mg/dL- Desirable HDL >60 mg/dL - Negative Risk Performed By: #### C MARQUES, CMP, 54140-7, THYR #### [facility] ([id number]) [address] [place] [address] 88007 #### 44963-1, 2088-06 #### [facility] ([id number]) [address] [place] [address], [address] [place] [address] Cholesterol in VLDL [Mass/Vol] 99 mg/dL High 0-30 [facility] Comment on above: Performed By: #### C MARQUES, CMP, 24688-3, THYR #### [facility] ([id number]) [address] [place] [address] 23300 #### 38810-6, 2088-06 #### [facility] ([id number]) [address], [address] [place] [address] CHOLESTEROL:HDL 9.1 High 1.0-5.0 [facility] Comment on above: Performed By: #### C MARQUES, CMP, 63256-4, THYR #### [facility] ([id number]) [address] [place] [address] 00595 #### 77210-4, 2088-06 #### [facility] ([id number]) [address], [address] [place] [address] LDL (CALC) RESULT NOT REPORTED DUE TO HIGH TRIGLYCERIDE Normal <130 [facility] Comment on above: Performed By: #### C BCA, CMP, 04292-6, THYR #### [facility] ([id number]) [address] [place] [address] [place] [address] #### 40444-7, 2088-06 #### [facility] ([id number]) [address], [address] [place] [address] Triglyceride [Mass/Vol] 494 mg/dL High 27-150 [facility] Comment on above: Performed By: #### C BCA, CMP, 44801-2, THYR #### [facility] ([id number]) [address] [facility], [place] [address] #### 33482-9, 2088-06 #### [facility] ([id number]) [address], [address] [place] [address] MR BRAIN WO CONTon MR BRAIN WO [...] Mccall MD on 07/23/2023 11:51 AM Normal [facility] THYROID PROFILEon 07-23-2023 Free T4 [Mass/Vol] 1.10 ng/dL Normal 0.61-1.60 [facility] Comment on above: Performed By: #### C BCA, CMP, 22753-1, THYR #### [facility] ([id number]) [address] [place] [address] 12626 #### 78670-1, 2088-06 #### [facility] ([id number]) [address] [place] [address], [address] [place] [address] TSH 2.88 uIU/mL Normal 0.49-4.67 [facility] Comment on above: Performed By: #### C MARQUES, CMP, 29776-6, THYR #### [facility] ([id number]) [address] [place] [address] 40818 #### 20722-5, 2088-06 #### [facility] ([id number]) [address] [place] [address], [address] [place] [address] TROPONIN Ion 07-23-2023 Troponin I.cardiac [Mass/Vol] 0.01 ng/mL Normal 0.00-0.04 [facility] Comment on above: Performed By: #### C BCA, CMP, 17129-7, THYR #### [facility] ([id number]) [address] [place] [address] 23809 #### 25901-7, 2088-06 #### [facility] ([id number]) [address] [place] [address], [address] [place] [address] Troponin I.cardiac [Mass/Vol] 0.03 ng/mL Normal 0.00-0.04 [facility] Comment on above: Performed By: #### C BCA, CMP, 54184-5, THYR #### [facility] ([id number]) [address] [place] [address] 79707 #### 40152-2, 2088-06 #### [facility] ([id number]) [address], [address] [place] [address] A1C HEMOGLOBINon 05-06-2023 HbA1c (Bld) [Mass fraction] 6.8 % [facility] Other Glucose - FINGER STICKon Glucose [Mass/Vol] 177 mg/dL [facility] Other HbA1c (Bld) [Mass fraction]o n 05-06-2023 A1C HEMOGLOBIN [facility] Other A1C HEMOGLOBINon 10-15-2021 HbA1c (Bld) [Mass fraction] 8 % [facility] Other Glucose - FINGER STICKon Glucose [Mass/Vol] 290 mg/dL [facility] Other HbA1c (Bld) [Mass fraction]o n 10-15-2021 A1C HEMOGLOBIN [employer] Other A1C HEMOGLOBINon 07-17-2021 HbA1c (Bld) [Mass fraction] 7.2 % [facility] Other Glucose - FINGER STICKon Glucose [Mass/Vol] 194 mg/dL [facility] Other HbA1c (Bld) [Mass fraction]o n 07-17-2021 A1C HEMOGLOBIN [facility] Other Creatinine W/GFR Point of Ca reon 09-07-2019 Creatinine [Mass/Vol] 1.95 mg/dL High 0.51 - 1.19 mg/dL [facility] [place] GFR Non- 27 mL/min Low >60 [facility] GFR/1.73 sq M predicted among non-blacks MDRD (S/P/Bld) [Vol rate/Area] 32 mL/min/{1.73_m2} Low >60 [facility], [place] GFR/1.73 sq M predicted among non-blacks MDRD (S/P/Bld) [Vol rate/Area] [place], [place] Comment on above: Average GFR for 50-5 9 years old: 93 mL/min/1.73sq m Chronic Kidney Disease: <60 mL/min/1.73sq m Kidney failure: <15 mL/min/1.73sq m eGFR calculated using average adult body mass. Additional eGFR calculator available at: http://www.[employer].Reelhouse/multiple_crcl_2012.htm OPERATIVE REPORTon 0 OPERATIVE REPORT [address] [address] OPERATIVE REPORT PATIENT NAME: OLY HARRELL : 1960 MED REC NO: [id number] ROOM: ACCOUNT NO: [id number] ADMIT DATE: 09/07/2019 PROVIDER: Martir Bang DATE [...] the recovery room in good condition. 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- Counseled patient that she needs to [...] or sooner ifnew symptoms develop.Marla Juares MD [facility] PROGRESSon 10-04-2017 Protein mass conc HNO ID: [id number] thor: Marla Webb: (none)Author Type: PhysicianType: Progress NotesFiled: 10/04/2017 8:20 PMNote Text:Proliferative Diabetic Retinopathy, Both Eyes:- Unable to follow-up 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- Counseled patient that she needs to [...] or sooner ifnew symptoms develop.Marla Juares MD [facility] PROGRESSon 08-30-2017 Protein mass conc HNO ID: [id number] thor: Marla Webb: (none)Author Type: PhysicianType: Progress NotesFiled: 08/30/2017 1:01 PMNote Text:Proliferative Diabetic Retinopathy, Both Eyes:- Unable to follow-up 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- Counseled patient that she needs to [...] or sooner ifnew symptoms develop.Marla Juares MD [facility] HOSPon 04-02-2017 HOSP Office Visit OPHT (OPHTLN) ----OLY HARRELL ([id number]) 1960 FDate Time Provider Bswubwjsqe37/6/17 12:00 PM ALAYNA GUTIERREZ During your visit [...] of its relevantcomponents.Samantha Mancusoing Provider: ALAYNA GUTIERREZ [[id number]]Allergies As of Date: 04/02/2017 Noted Allergy ReactionDEMEROL (MEPERIDINE (PF)) 01/30/2014 10 - AnaphylaxisMORPHINE 01/30/2014 10 - AnaphylaxisDate Reviewed: 01/01/2017Reviewed by: Inge Munoz (Tech) - Fully AssessedReason for Visit: Post-Op Visit [1236] Cmt: s/p lid repair 12/23/16Primary Visit Diagnosis:Ptosis of both eyelids [H02.403]Order(s):IOP MEASUREMENT [0030565] Order #: [id number]: 1Prescriptions as of 04/02/2017 Sig: NEOMYCIN 3.5 [...] by mouth. Disc: Discontinued by PatientEncounter Number: [id number] Status:Closed by ALAYNA GUTIERREZ MD on 04/02/17 [facility] PROGRESSon 04-01-2017 Protein mass conc HNO ID: [id number] thor: Alayna GutierrezSer: (none)Author Type: PhysicianType: Progress [...] with all of its relevantcomponents.Alayna Gutierrez MD [facility] ANES Jaylen 12-23-2016 ANES POST HNO ID: [id number] thor: Harjeet PeñalozaService: AnesthesiologyAuthor Type: PhysicianType: Anesthesia [...] 23, 2016 : 2:03 PM PAGER/CONTACT #: [facility] ANES PREOPon 12-23-2016 ANES PREOP HNO ID: [id number] thor: [place] Corteservice: (none)Author Type: PhysicianType: Anesthesia PreOpFiled: 12/23/2016 9:14 AMNote Text:[facility]IONAL ANESTHESIOLOGY PREOPERATIVE ASSESSMENTPATIENT NAME: Oly HarrellMRN: [id number]: 1960Surgeon(s):Alayna HwangProcedure(s) (LRB):REPAIR BLEPHAROPTOSIS; (TARSO) LEVATOR RESECTION OR ADVANCEMENT, EXTERNALAPPROACH (Bilateral)Estimated body mass index is 44.81 kg/(m2) as calculated from thefollowing: Height as of 12/02/16: 157.5 cm (5' 2 ). Weight as of this encounter: 111.1 kg (245 lb).Most recent hematocrit and potassium results:Hematocrit 35.7 12/02/2016Potassium 4.0 12/02/2016Vitals: 12/23/235276SX: 154/91Pulse: 102Resp: 18Temp: 36.3 ?C (97.3 ?F)TempSrc: [...] LEFT EYENo date: COLONOSCOP W/ OR W/O [facility] SPEC Comment: ColonoscopyNo date: EGD W/O [...] MDDATE: December 23, 2016TIME: 9:14 AM Normal [facility] OPERATIVE NOon 12-23-2016 OPERATIVE NO HNO ID: [id number] thor: Alayna GutierrezService: OphthalmologyAuthor Type: PhysicianType: Operative ReportFiled: 12/23/2016 10:37 AMNote Text: OPERATIVE/PROCEDURE REPORTLOG ID: [id number]/Procedure Date: 12/23/2016Incision/Procedure Start Time: 9:50 AMIncision Close/Procedure End Time: 10:35 AMSurgeon(s)/Proceduralist(s ) and Car Dealer(s):Surgeon(s) and Role: * Alayna Gutierrez - PrimaryPre-Op/Pre-Procedure [...] Shay: December 23, 2016 : PAGER/CONTACT #: [facility] PT EDon 12-23-2016 PT ED HNO ID: [id number] thor: Patti (Rn) MELANIE Krishnanervice: NursingAuthor Type: Registered NurseType: Patient EducationFiled: 12/23/2016 11:09 AMNote Text:[facility] PATIENT EDUCATION NOTEREADINESS TO LEARNCOGNITIVE [...] RN: NoElectronically Signed By Patti Krishnan RN [facility] Vital Signs Date Time Vital Sign Value Performing Clinician Facility 09-30-2023 14:30-0400 Body height 152.4 cm [facility] 09-30-2023 14:30-0400 Body mass index (BMI) [Ratio] 44.5 kg/m2 [facility] 09-30-2023 14:30-0400 Body weight 103.41 kg [facility] 09-30-2023 14:30-0400 Diastolic blood pressure 104 mm[Hg] [facility] 09-30-2023 14:30-0400 Heart rate 84 /min [facility] 09-30-2023 14:30-0400 Respiratory rate 18 /min [facility] 09-30-2023 14:30-0400 SaO2% (BldA) [Mass fraction] 96 % [facility] 09-30-2023 14:30-0400 Systolic blood pressure 195 mm[Hg] [facility] 09-10-2023 12:35-0400 Body height 154.9 cm Yarelis Preciado MD Work Phone: [facility] 09-10-2023 12:35-0400 Body mass index (BMI) [Ratio] 42.89 kg/m2 Yarelis Preciado MD Work Phone: [facility] 09-10-2023 12:35-0400 Body weight 102.97 kg Yarelis Preciado MD Work Phone: [facility] 09-10-2023 12:35-0400 Diastolic blood pressure 72 mm[Hg] Yarelis Preciado MD Work Phone: [facility] 09-10-2023 12:35-0400 Heart rate 70 /min Yarelis Preciado MD Work Phone: [facility] 09-10-2023 12:35-0400 Systolic blood pressure 140 mm[Hg] Yarelis Preciado MD Work Phone: [facility] 07-30-2023 10:06-0500 Body height 157.5 cm Christophe Irwin MD Work Phone: [facility] 07-30-2023 10:06-0500 Body mass index (BMI) [Ratio] 40.42 kg/m2 Christophe Irwin MD Work Phone: [facility] 07-30-2023 10:06-0500 Body temperature 97.5 [degF] Christophe Irwin MD Work Phone: [facility] 07-30-2023 10:06-0500 Body weight 100.25 kg Christophe Irwin MD Work Phone: [facility] 07-30-2023 10:06-0500 Diastolic blood pressure 78 mm[Hg] Christophe Irwin MD Work Phone: [facility] 07-30-2023 10:06-0500 Heart rate 94 /min Christophe Irwin MD Work Phone: [facility] 07-30-2023 10:06-0500 SaO2% (BldA) [Mass fraction] 99 % Christophe Irwin MD Work Phone: [facility] 07-30-2023 10:06-0500 Systolic blood pressure 140 mm[Hg] Christophe Irwin MD Work Phone: [facility] 05-06-2023 13:45-0500 Body height 160.66 cm Nancy Stevens Other [facility] Other 05-06-2023 13:45-0500 Body mass index (BMI) [Ratio] 39.68 kg/m2 Tondra Mapus Other [facility] Other 05-06-2023 13:45-0500 Body weight 102.42 kg Tondra Mapus Other [facility] Other 05-06-2023 13:45-0500 Diastolic blood pressure 77 mm[Hg] Tondra Mapus Other [facility] Other 05-06-2023 13:45-0500 Respiratory rate 18 /min Tondra Mapus Other [facility] Other 05-06-2023 13:45-0500 SaO2% (BldA) [Mass fraction] 100 % Tondra Mapus Other [facility] Other 05-06-2023 13:45-0500 Systolic blood pressure 187 mm[Hg] Tondra Mapus Other [facility] Other 04-14-2022 15:00-0400 Body height 160.66 cm [facility] Other [facility] Other 04-14-2022 15:00-0400 Body mass index (BMI) [Ratio] 39.92 kg/m2 [facility] Other [facility] Other 04-14-2022 15:00-0400 Body temperature 97.3 [degF] [facility] Other [facility] Other 04-14-2022 15:00-0400 Body weight 103.06 kg [facility] Other [facility] Other 04-14-2022 15:00-0400 Diastolic blood pressure 110 mm[Hg] Fadumo Bairess Other [facility] Other 04-14-2022 15:00-0400 Respiratory rate 20 /min Fadumo Bairess Other [facility] Other 04-14-2022 15:00-0400 SaO2% (BldA) [Mass fraction] 98 % Fadumo Bairess Other [facility] Other 04-14-2022 15:00-0400 Systolic blood pressure 170 mm[Hg] Fadumo Bairess Other [facility] Other 10-15-2021 17:15-0400 Body height 160.66 cm Tondra Mapus Other [facility] Other 10-15-2021 17:15-0400 Body mass index (BMI) [Ratio] 40.59 kg/m2 Tondra Mapus Other [facility] Other 10-15-2021 17:15-0400 Body weight 104.78 kg Tondra Mapus Other [facility] Other 10-15-2021 17:15-0400 Diastolic blood pressure 84 mm[Hg] Tondra Mapus Other [facility] Other 10-15-2021 17:15-0400 Respiratory rate 20 /min Tondra Mapus Other [facility] Other 10-15-2021 17:15-0400 SaO2% (BldA) [Mass fraction] 95 % Tondra Mapus Other [facility] Other 10-15-2021 17:15-0400 Systolic blood pressure 147 mm[Hg] Tondra Mapus Other [facility] Other 07-17-2021 15:15-0500 Body height 160.66 cm Tondra Mapus Other [facility] Other 07-17-2021 15:15-0500 Body mass index (BMI) [Ratio] 41.12 kg/m2 Tondra Mapus Other [facility] Other 07-17-2021 15:15-0500 Body weight 106.14 kg Tondra Mapus Other [facility] Other 07-17-2021 15:15-0500 Diastolic blood pressure 84 mm[Hg] Tondra Mapus Other [facility] Other 07-17-2021 15:15-0500 Respiratory rate 20 /min Tondra Mapus Other [facility] Other 07-17-2021 15:15-0500 SaO2% (BldA) [Mass fraction] 97 % Tondra Mapus Other [facility] Other 07-17-2021 15:15-0500 Systolic blood pressure 135 mm[Hg] Tondra Mapus Other [facility] Other 09-07-2019 12:00-0400 Pulse Oximetry 97 % [facility] , [place] 09-07-2019 11:45-0400 Body Temperature 97.5 [degF] [facility] [place] 09-07-2019 11:45-0400 BP Diastolic 82 mm[Hg] Martir Darden [facility] , [place] 09-07-2019 11:45-0400 BP Systolic 150 mm[Hg] Martir Darden [facility] , [place] 09-07-2019 11:45-0400 Pulse (Heart Rate) 94 /min Martir Darden [facility], [place] 09-07-2019 11:45-0400 Respiratory Rate 16 /min Martir Darden [facility] [place] 09-07-2019 08:38-0400 BMI (Body Mass Index) 45.54 kg/m2 Martir Darden [facility], [place] 09-07-2019 08:38-0400 Body weight 112.95 kg [facility] , [place] 09-07-2019 08:38-0400 Height 157.5 cm [facility] [place] [place] Encounters Encounter Date Encounter Type Care Provider Facility Start: 12-01-2023 End: 12-01-2023 ambulatory [facility] Start: 12-01-2023 End: 12-01-2023 Encounter for other preprocedural examination [facility] Start: 11-20-2023 End: 11-20-2023 Emergency department patient visit CHRISTOPHE IRWIN [facility] Start: 10-29-2023 End: 10-29-2023 ambulatory CHRISTOPHE IRWIN Not Available Start: 09-30-2023 Refill Anyi Delgado APRN-SEWER AND DRAIN TECHNICIAN Work Phone: [facility] Start: 09-30-2023 End: 09-30-2023 ambulatory [facility] Work Phone: Start: 09-30-2023 End: 09-30-2023 Patient encounter procedure [facility] Work Phone: Start: 09-29-2023 End: 09-29-2023 ambulatory CHRISTOPHE IRWIN Not Available Start: 09-17-2023 Telephone encounter Marcelaleslie Schafer CMA [facility] Comment on above: Request for Surgical Clearance Start: 09-13-2023 Telephone encounter Tonya Mustafa [facility] Comment on above: [facility] Start: 09-10-2023 End: 09-10-2023 ambulatory YARELIS PRECIADO [facility] Start: 09-10-2023 End: 09-10-2023 Office outpatient visit 25 minutes Yarelis Preciado MD Work Phone: [facility] Comment on above: Sequelae, post-strok e (Primary Dx); Seizure ([facility]-HCC); Hypomagnesemia; Colitis; Abnormal brain MRI; Poorly controlled diabetes mellitus ([facility]); CKD stage 3 secondary to diabetes ([facility]); Type 2 diabetes mellitus with complication, with long-term current use of insulin ([facility]); Gait instability; PBA (pseudobulbar affect) Start: 07-30-2023 Bamboo flowsheet Christophe Irwin MD Work Phone: [facility] Start: 07-30-2023 Bambo flowsheet Christophe Irwin MD Work Phone: [facility] Start: 07-30-2023 End: 07-30-2023 ambulatory CHRISTOPHE IRWIN Not Available Start: 07-30-2023 End: 07-30-2023 Preoperative state Christophe Irwin MD Work Phone: [facility] Start: 07-30-2023 End: 07-30-2023 Transitional care manage srvc 7 day discharge Christophe Irwin MD Work Phone: [facility] Comment on above: 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 (CMS/HCC) (Primary Dx); Preoperative clearance; Bunion of right foot; Essential hypertension, benign (CMS/HCC); Type 2 diabetes mellitus with microalbuminuria, with long-term current use of insulin ([facility]/HCC) Start: 07-26-2023 End: 07-27-2023 ambulatory ANYI DELGADO [facility] Start: 07-23-2023 End: 07-27-2023 ambulatory CHRISTOPHE IRWIN [facility] Start: 07-23-2023 End: 07-27-2023 ambulatory ANYI DELGADO [facility] Start: 07-23-2023 End: 07-27-2023 Emergency department patient visit ANDREW SHARIF [facility] Start: 07-23-2023 End: 07-26-2023 Evaluation and management of inpatient CHRISTOPHE IRWIN [facility] Start: 07-08-2023 End: 07-08-2023 ambulatory Tondra Mapus Other [facility] Other Start: 07-08-2023 Telephone encounter Tondra Mapus [facility] Start: 05-18-2023 End: 05-18-2023 ambulatory Tondra Mapus Other [facility] Other Start: 05-18-2023 Telephone encounter Tondra Mapus [facility] Start: 05-06-2023 (DM) Diabetes Tondra Mapus [facility] Start: 05-06-2023 End: 05-07-2023 ambulatory Tondra K Mapus [facility] Other Start: 04-29-2023 End: 04-29-2023 ambulatory Tondra Mapus Other [facility] Other Start: 04-29-2023 Telephone encounter Tondra Mapus [facility] Start: 02-24-2023 End: 02-24-2023 ambulatory Tondra Mapus Other [facility] Other Start: 02-24-2023 Telephone encounter Tondra Mapus [facility] Start: 11-09-2022 ambulatory MONET MARTEL Faci lity:H1 Start: 11-05-2022 End: 11-05-2022 ambulatory Tondra Mapus Other [facility] Other Start: 11-05-2022 Telephone encounter Tondra Mapus [facility] Start: 10-30-2022 End: 10-30-2022 ambulatory Tondra Mapus Other [facility] Other Start: 10-30-2022 Telephone encounter Tondra Mapus [facility] Start: 10-12-2022 End: 10-13-[address] CHRISTOPHE IRWIN Facility:[facility]1 Start: 09-14-2022 End: 09-15-2022 ambulatory ISABELLA COSTAEN Facility:[facility]1 Start: 08-31-2022 End: 09-01-2022 ambulatory ISABELLA LETICIA Facility:[facility]1 Start: 08-27-2022 End: 08-27-2022 ambulatory Tondra Mapus Other [facility] Other Start: 08-27-2022 Telephone encounter Tondra Mapus [facility] Start: 08-18-2022 End: 08-19-[address] CHRISTOPHE IRWIN Facility:[facility]1 Start: 08-10-2022 End: 08-11-[address] CHRISTOPHE IRWIN Facility:[facility]1 Start: 07-20-2022 End: 07-21-[address] CHRISTOPHE IRWIN Facility:[facility]1 Start: 06-26-2022 End: 06-27-[address] CHRISTOPHE IRWIN Facility:[facility] Start: 06-18-2022 End: 06-18-2022 ambulatory Tondra Mapus Other [facility] Other Start: 06-18-2022 Telephone encounter Tondra Mapus [facility] Start: 06-15-2022 End: 06-15-2022 ambulatory Tondra Mapus Other [facility] Other Start: 06-15-2022 Telephone encounter Tondra Mapus [facility] Start: 06-09-2022 End: 06-10-2022 ambulatory ISABELLADONTAE CSOTAEN Facility:[facility]1 Start: 05-11-2022 End: 05-11-2022 ambulatory UNKNOWN PROVIDER Facility:[facility] Start: 05-07-2022 End: 05-07-2022 ambulatory Tondra Mapus Other [facility] Other Start: 05-07-2022 Telephone encounter Tondra Mapus [facility] Start: 04-15-2022 End: 04-15-2022 ambulatory Aziz Bakhous Other [facility] Other Start: 04-15-2022 Telephone encounter Aziz Bakhous [facility] Start: 04-14-2022 End: 04-14-2022 ambulatory Aziz Bakhous Other [facility] Other Start: 04-14-2022 Office outpatient ne w 30 minutes Aziz Bakhous [facility] [place] Start: 04-01-2022 End: 04-02-[address] AMANDA HOSKINS Facility:[facility]1 Start: 02-18-2022 End: 02-19-[address] AMANDA HOSKINS Facility:[facility]1 Start: 01-01-2022 End: 01-01-2022 ambulatory Tondra Mapus Other [facility] Other Start: 01-01-2022 Telephone encounter Tondra Mapus [facility] Start: 10-15-2021 (DM) Diabetes Tondra Mapus [facility] Start: 10-15-2021 End: 10-15-2021 ambulatory Tondra Mapus Other [facility] Other Start: 10-15-2021 Telephone encounter Tondra Mapus [facility] Start: 10-07-2021 End: 10-07-2021 ambulatory Tondra Mapus Other [facility] Other Start: 10-07-2021 Telephone encounter Tondra Mapus [facility] Start: 08-25-2021 End: 08-25-2021 ambulatory Tondra Mapus Other [facility] Other Start: 08-25-2021 Telephone encounter Nancy Stevens [facility] Start: 07-17-2021 (DM) Diabetes Tondra Rodney [facility] Start: 07-17-2021 End: 07-17-2021 ambulatory Tondra Rogerus Other [facility] Other Start: 09-07-2019 End: 09-07-2019 Patient encounter procedure MARTIR BANG [facility] Start: 09-07-2019 End: 09-07-2019 Subsequent hospital visit by physician Martir Bang Work Phone: [facility] Start: 01-21-2018 End: 01-24-2018 Patient encounter BRITTANY SPARKS [facility] Start: 11-01-2017 End: 11-02-2017 Patient encounter MARLA JUARES [facility] Start: 10-04-2017 End: 10-05-2017 Patient encounter MARLA JUARES [facility] Start: 08-30-2017 End: 09-02-2017 Patient encounter MARLA JUARES [facility] Start: 04-02-2017 End: 04-02-2017 Patient encounter ALAYNA GUTIERREZ [facility] Start: 12-23-2016 End: 12-23-2016 Ambulatory [facility] Procedures Date Procedure Procedure Detail Performing Clinician Start: 09-10-2023 Follow-up visit Follow-up EHAD AF REEN Start: 09-10-2023 Adult depression scr eening assessment Tonya Mustafa Start: 05-13-2023 Microalbumin [Mass/v olume] in Urine by Test strip Tonya Mustafa Start: 09-07-2019 BEDREST MARTIR ADAME Start: 09-07-2019 Continuous pulse oximetry MARTRI BANG Start: 09-07-2019 ENCOURAGE DEEP BREAT NOLVIA [...] Author Start: 09-22-2024 Tobacco Screening Tobacco Screening [facility] Start: 09-09-2024 Adult BMI Screening Adult BMI Screen ing [facility] Start: 09-09-2024 Depression Screening Depression Scre ening [facility] Start: 09-09-2024 Tobacco Screening Tobacco Screening [facility] Start: 05-13-2024 Urine screening for protein Urine Microalbumin [facility] Start: 02-25-2024 End: 02-25-2024 Patient encounter procedure 02/25/2024 1:00 PM EDT Office Visit [facility] [address] [place] [phone] Yarelis Preciado MD [address] [place] [address], [address] [place] [phone] [facility] Start: 10-29-2023 End: 10-29-2023 Patient encounter procedure 10/29/2023 10:15 AM EDT Office Visit [facility] [address] [place] [place] [phone] Christophe Irwin MD [address] [place] [phone] [facility] Start: 07-30-2023 End: 07-30-2023 Patient encounter procedure 07/30/2023 10:15 AM EST Office Visit [facility] [address] [place] [phone] Christophe Irwin MD [address] [place] [phone] Arrived [facility] Comment on above: Arrived Start: 02-26-2023 Influenza vaccination Influenza Vacc ine (#1) [facility] Start: 01-29-2023 Hemoglobin A1c measurement Diabetes: Hemoglobin A1C [facility] Start: 12-19-2022 Adult BMI Follow Up Plan Adult BMI Follow Up Plan [facility] Start: 02-25-2022 DTaP,Tdap and Td Vaccines (2 - Td or Tdap) DTaP,Tdap and Td Vaccines (2 - Td or Tdap) [facility] Start: 03-17-2021 Screening for malign ant neoplasm of colon Colonoscopy [facility] Start: 05-10-2019 Screening for malign ant neoplasm of breast Mammogram [facility] Start: 05-06-2019 Administration of varicella zoster vaccine Zoster (Shingles) Vaccine (2 of 2) [facility] Start: 02-26-2019 Influenza vaccination Flu vaccine (# 1) [place], [place] Start: 1992 Screening for malign ant neoplasm of cervix [facility] Start: 10-27-1983 Screening for malign ant neoplasm of cervix Pap Smear [facility] Start: 1980 Diabetic foot examination Diabetic Foot Exam [facility] Start: 1972 Glaucoma screening Diabetes: R etinopathy Screening [facility] Start: 1962 Creatinine monitoring Creatinine mon itoring [place] Start: 1962 Glaucoma screening Diabetic Op hthalmology Exam [facility] Start: 1962 Medicare Annual Well ness (AWV) Medicare Annual Wellness (AWV) [facility] Start: 1962 Potassium monitoring Potassium monit oring [place] Start: 1962 Screening for malign ant neoplasm of colon [facility] Start: 1962 Tobacco Counseling Tobacco Counselin g [facility] End: 09-07-2019 BUN & Creatinine BUN & Creatinine Lab STAT One Time for 1 Occurrences starting 09/07/2019 until 09/07/2019 [place] Comment on above: One Time for 1 Occur rences starting 09/07/2019 until 09/07/2019 Comprehensive metabo lic 2000 panel - Serum or Plasma [facility] EKG 12 Lead EKG 12 Lead ECG STAT 09/07/2019 7:38 AM EDT [place] End: 09-07-2019 Electrolyte Panel Electrolyte Panel Lab STAT One Time for 1 Occurrences starting 09/07/2019 until 09/07/2019 [place] Comment on above: One Time for 1 Occur rences starting 09/07/2019 until 09/07/2019 Initiate Oxygen Ther apy Protocol Initiate Oxygen Therapy Protocol Respiratory Care Routine Daily until discontinued starting 09/07/2019 [place] Comment on above: Daily until disconti nued starting 09/07/2019 Phase I & II - meter ed glucose Phase I & II - metered glucose Point of Care Testing Routine As Needed until discontinued starting 09/07/2019 [place] Comment on above: As Needed until disc ontinued starting 09/07/2019 End: 09-07-2019 [facility] Comment on above: One Time for 1 Occur rences starting 09/07/2019 until 09/07/2019 End: 09-07-2019 Pulse Oximetry Spot Check Pulse Oximetry Spot Check Respiratory Care Routine One Time for 1 Occurrences starting 09/07/2019 until 09/07/2019 [facility] Comment on above: One Time for 1 Occur rences starting 09/07/2019 until 09/07/2019 End: 09-07-2019 Urine , POCT Urine , POCT Point of Care Testing Routine One Time for 1 Occurrences starting 09/07/2019 until 09/07/2019 [facility] Comment on above: One Time for 1 Occur rences starting 09/07/2019 until 09/07/2019 [facility] Immunizations Immunization Date Immunization Notes Care Provider Fa cility 11-19-2020 COVID-19, mRNA, LNP- S, PF, 100mcg/0.5mL Dose [facility] 05-15-2020 influenza, injectabl e, quadrivalent, preservative free [facility] 05-15-2020 influenza virus vacc ine, unspecified formulation Christophe Irwin MD Work Phone: [facility] 03-28-2019 pneumococcal conjuga te vaccine, 13 valent [facility] 03-11-2019 Seasonal, quadrivale nt, recombinant, injectable influenza vaccine, preservative free [facility] 03-11-2019 zoster vaccine recombinant [facility] 03-11-2019 zoster vaccine, unspecified formulation [facility] 04-01-2015 influenza, seasonal, injectable, preservative free [facility] 04-01-2015 pneumococcal polysaccharide vaccine, 23 valent [facility] 02-26-2012 tetanus toxoid, redu jose diphtheria toxoid, and acellular pertussis vaccine, adsorbed [facility] Payers Date Payer Category Payer Medicare UHC MEDICARE [employer] DUAL COMPLETE xxxxxxxxx 2019-Present xxxxxxxxx [id number] 2019 Medicare [id number] 2018 Self-pay [id number] 2017 Medicare [id number] 2016 Medicaid [id number] 2014 Medicaid MEDICAID [facility] DEPT OF JOB xxxxxxxxxxxx 2014-Present [phone] [address] [place] [address] xxxxxxxxxxxx [id number] 1962 Unknown [id number] 2.16.840.1.247630.3.579.2.1 75 1962 Unknown [id number] 2.16.840.1.945549.3.579.2.7 32 1962 Unknown [id number] 2.16.840.1.623160.3.579.2.5 93 1962 Unknown [id number] 2.16.840.1.424313.3.579.2.5 93 1962 Unknown [id number] 2.16.840.1.398611.3.579.2.5 93 1962 Unknown [id number] 2.16.840.1.363213.3.579.2.5 93 1962 Unknown [id number] 2.16.840.1.806737.3.579.2.5 93 1962 Unknown [id number] 2.16.840.1.294342.3.579.2.5 93 1962 Unknown [id number] 2.16.840.1.684296.3.579.2.5 93 1962 Unknown [id number] 2.16.840.1.758888.3.579.2.5 93 1962 Unknown [id number] 2.16.840.1.764323.3.579.2.5 93 1962 Unknown [id number] 2.16.840.1.647712.3.579.2.5 93 1962 Unknown [id number] 2.16.840.1.582579.3.579.2.5 93 1962 Unknown [id number] 2.16.840.1.737326.3.579.2.1 259 1962 Unknown [id number] 2.16.840.1.018737.3.579.2.1 259 1962 Unknown [id number] 2.16.840.1.388744.3.579.2.1 259 1962 Unknown [id number] 2.16.840.1.176228.3.579.2.1 286 1962 Unknown [id number] 2.16.840.1.180366.3.579.2.1 286 1962 Unknown [id number] 2.16.840.1.065732.3.579.2.1 286 1962 Unknown [id number] 2.16.840.1.149799.3.579.2.1 286 1962 Unknown [id number] 2.16.840.1.829327.3.579.2.1 286 1962 Unknown [id number] 2.16.840.1.198324.3.579.2.1 286 1962 Unknown [id number] 2.16.840.1.732758.3.579.2.1 286 1962 Unknown [id number] 2.16.840.1.279449.3.579.2.1 286 1962 Unknown [id number] 2.16.840.1.391802.3.579.2.1 286 1959 Medicaid [id number] Medicare Medicare [id number] Unknown [id number] 2.16.840.1.293638.3.579.2.5 31 Social History Date Type Detail Facility Start: 09-07-2019 [facility] [place] End: 09-05-1979 History of tobacco use Current smoker [place] End: 09-05-1979 History of tobacco use Cigarette Smoker [place] Start: 09-07-2019 End: 07-23-2023 Cigarettes smoked current (pack per day) - [facility]orted [facility] Start: 09-07-2019 End: 07-30-2023 Alcohol intake Lifetime non-drinker (finding) [place] Start: 09-05-2019 History SDOH Alcohol Frequency 1 [place] Start: 1960 Sex Assigned At Not on file [place] Start: 07-09-2023 End: 07-23-2023 Sex Assigned At [facility] Start: 12-14-2022 End: 09-30-2023 Tobacco smoking status [facility] Never smoked tobacco [facility] Start: 12-14-2022 End: 05-04-2023 Tobacco use and exposure Smokeless tobacco non-user [facility] Start: 1960 Sex Assigned At Female F [facility] Start: 05-04-2023 [facility] Start: 09-10-2023 End: 09-23-2023 Alcohol intake [facility]dr[facility] (finding) [facility] Has the electric, ga s, oil, or water company threatened to shut off services in your home in past 12Mo No [facility] Are you now , , , , never or living with a partner? [facility] How often to you hav e a [...] - these days [OSQ] Not at all [facility] Medical Equipment Procedure Code Equipment Code Equipment Origin al Text Equipment Identifier Dates [id number], [id number] Star t: 01-16-2018 blood sugar diagnostic (FreeStyle [...] Date & Type Note Facility 12-01-2023 Note [facility] Note Reason for cardiology [...] EDT by BE (more content not included)... [facility] 09-17-2023 Miscellaneous Notes Received a request for surgical clearance from [facility] in [place]. Office is requesting most recent office visit note and any medication instructions be faxed over to them @ [phone] by 09/23/23. Request and H&P scanned into the patient media for review. Please complete the patients last OV note and staff will fax it over along with any medication instructions you may have. Thanks. [facility] [place]. Office called in asking if we received the surgical clearance. Locate Technician informed them yes. Aleksandra would like to know when they would get the form back. In below encounter is was stated they needed the form back by 09 23 23 Please advise Aleksandra [phone] Physician's surgical clearance letter was printed and faxed to [phone], along with last office visit notes. Letter corrected to state stop aspirin 24 hours prior to procedure. Corrected letter scanned into chart. Fax confirmation received. RN left voicemail for project program manager, Aleksandra, to inform letter was faxed. Clinic number provided for call back with any questions. documented in this encounter [facility] 09-17-2023 Telephone encounter Note Received a request for surgical clearance from [facility] in [place]. Office is requesting most recent office visit note and any medication instructions be faxed over to them @ [phone] by 09/23/23. Request and H&P scanned into the patient media for review. Please complete the patients last OV note and staff will fax it over along with any medication instructions you may have. Thanks. [facility] 09-17-2023 Telephone encounter Note [facility] [place]. Office called in asking if we received the surgical clearance. Locate Technician informed them yes. Aleksandra would like to know when they would get the form back. In below encounter is was stated they needed the form back by 09 23 23 Please advise Aleksandra [phone] [facility] 09-17-2023 Telephone encounter Note Physician's surgical clearance letter was printed and faxed to [phone], along with last office visit notes. Letter corrected to state stop aspirin 24 hours prior to procedure. Corrected letter scanned into chart. Fax confirmation received. RN left voicemail for project program manager, Aleksandra, to inform letter was faxed. Clinic number provided for call back with any questions. [facility] 09-13-2023 Miscellaneous Notes Received call today 09/13/23 3:02 from Mounika bean [facility] who was calling to let Dr. Preciado's staff know that she is sending prior auth request for Nudexta to our clinic fax# which I provided to her. MEAGAN approved: [id number]. NUEDEXTA CAP 20-10MG is approved through 06/27/2024. documented in this encounter [facility] 09-13-2023 Telephone encounter Note Received call today 09/13/23 3:02 from Mounika [facility] who was calling to let Dr. Preciado's staff know that she is sending prior auth request for Nudexta to our clinic fax# which I provided to her. [facility] 09-13-2023 Telephone encounter Note MEAGAN approved: [id number]. NUEDEXTA CAP 20-10MG is approved through 06/27/2024. [facility] 09-10-2023 History of Presen t illness Narrative [facility] FOLLOW UP NOTE [...] at [facility] 07/23/23-07/25/23: ... 62/F with a past medical [...] - of note patient was admitted at [facility] in October 2022 with altered mentation. [...] History: Diagnosis Date Chronic kidney disease Diabetes ([facility]) Diabetes mellitus ([facility]) Disease of thyroid gland GERD (gastroesophageal reflux disease) Glaucoma Hyperlipemia Hypertension Incontinence Obesity Seizures ([facility]) Stroke ([facility] Urinary urgency Past Surgical History Past Surgical History: Procedure Laterality Date APPENDECTOMY AUGMENTATION VERTEBRAL KYPHOPLASTY SPINE L1/ BIOPSY L1 N/A 12/02/2020 Performed by Bridger Vizcaino Jr., MD at [facility] BACK SURGERY BREAST BIOPSY Right 1990 BENIGN BREAST BIOPSY Right BENIGN BREAST BIOPSY BREAST SURGERY biopsy CATARACT EXTRACTION Bilateral CHOLECYSTECTOMY COLON SURGERY COLONOSCOPY N/A 03/17/2018 Performed by Santiago Cosby DO at [facility] CYSTOSCOPY EGD Left Lateral 10/17/2020 Performed by Santiago Cosby DO at [facility] EGD N/A 03/17/2018 Performed by Santiago Cosby DO at [facility] ESOPHAGOGASTRODUODENOSCOPY EYE SURGERY FOOT SURGERY Right FOOT [...] min Stress: No Stress Concern Present (07/23/2023) [employer] - Occupational Stress Questionnaire Feeling of Stress : Not at all Social Connections: Moderately Integrated (07/23/2023) Social Connection and Isolation Panel [NHANES] Frequency of Communication with Friends and Family: Three times a week Frequency of Social Gatherings with Friends and Family: Three times a week Attends Pentec[employer]al Services: More than 4 times per year [...] complication, with long-term current use of insulin ([facility]) 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 ([facility]) Morbid obesity ([facility]) CKD stage 3 secondary to diabetes ([facility]) Hypomagnesemia Non-intractable vomiting Abdominal pain Coffee ground emesis Hypertension Hyperlipemia Glaucoma GERD (gastroesophageal reflux disease) Disease of thyroid gland Urinary urgency Closed fracture of first lumbar vertebra ([facility]) Stroke ([facility]) Intractable back pain Pathological fracture of lumbar vertebra due to secondary osteoporosis ([facility]) Age-related osteoporosis with current pathological fracture Vitamin D deficiency Altered mental status Seizures ([facility]) Seizure-like activity ([facility]) Mental status change resolved Recurrent episodes of unresponsiveness Seizure ([facility]) Hypokalemia Right thalamic infarction ([facility]) Poorly controlled diabetes mellitus ([facility]) Sequelae, post-stroke Gait instability Right foot drop Hyperlipidemia Asymptomatic bilateral carotid artery stenosis Delirium Colitis Sepsis ([facility]) Left-sided weakness History of stroke History of seizure Diarrhea Hypertensive encephalopathy Abnormal brain MRI RUE weakness CVA (cerebral vascular accident) ([facility]) Stroke ([facility]) Status post, lacunar stroke--> left periventricular ischemic [...] lability and mood disorders. Follow-up regularly with sports marketer, guideman and other specialists. Follow Up: 3 months. Yarelis Preciado MD Vascular Neurologist [facility] # [phone] Urgent Stroke Calls [phone](ACCESS) I have personally participated in the care of this patient. I have reviewed all pertinent clinical information, including history, physical exam, investigation results and plan. I spent 40 minutes caring for this patient, and more than 50% of that time was spent on counseling the patient/maintenance manager/care team and coordinating care. Important Notice: This note was created with the assistance of a speech recognition program. While intending to generate a timely document that accurately reflects the content of the encounter, no guarantee can be provided that every grammatical or spelling mistake has been or will be identified or corrected. Thank you for your understanding. documented in this encounter [facility] 07-30-2023 History of Presen t illness [...] clearance from neurology. documented in this encounter [facility] 07-08-2023 Evaluation note Encounter Date Diagnosis Assessment Notes Jun, Diabetes mellitus with renal manifestations, uncontrolled (ICD-10 - E11.29) [facility] Other 11-09-2023 Evaluation note* Encounter Date Diagnosis Assessment Notes Treatment Notes Treatment Clinical Notes Apr, Insulin long-term use (ICD-10 - Z79.4) Apr, Type 2 diabetes mellitus with diabetic chronic kidney disease (ICD-10 - E11.22) 1. Controlled, Type 2 diabetes A1c 6.8%. 2. Blood glucose levels improved. According to [employer] 2 cgm download 04/16/23-04/29/23: Avg glucose 157. [...] addressed- pt. will have paperwork sent from [employer] for diabetic shoes. She has history of [...] S91.301A) keep f/u with Dr. Martel Wednesday05/10/23 [facility] Other 05-05-2023 Evaluation note* Encounter Date Diagnosis Assessment Notes Treatment Notes Treatment Clinical Notes October, Hyperlipidemia (ICD-10 - E78.5) [facility] Other 12-14-2022 NotePROCEDURE: XR FOOT RT MIN [...] Electronically authenticated by: AMANDA HOSKINS Date: 2022-06-10 09:23[facility]10-18-2022 Evaluation note* Encounter Date Diagnosis Assessment [...] current with her PCP for hyperlipidemia control [facility] Other 10-05-2022 NotePROCEDURE: XR ANKLE RT MIN [...] Electronically authenticated by: AMANDA HOSKINS Date: 2022-04-01 10:53[facility]08-25-2022 NotePROCEDURE: XR ANKLE LT MIN 3 [...] Electronically authenticated by: AMANDA HOSKINS Date: 2022-02-19 08:07[facility]08-25-2022 NotePROCEDURE: XR FOOT RT MIN 3 [...] Electronically authenticated by: AMANDA HOSKINS Date: 2022-02-19 08:04[facility]07-07-2022 Evaluation note* Encounter Date Diagnosis Assessment Notes Treatment Notes Treatment Clinical Notes Dec, Diabetes mellitus with renal manifestations, uncontrolled (ICD-10 - E11.29) [facility] Other 04-20-2022 Evaluation note* Encounter Date Diagnosis Assessment Notes Treatment Notes Treatment Clinical Notes Sep, Insulin long-term use (ICD-10 - Z79.4) Sep, Type 2 diabetes mellitus with diabetic chronic kidney disease (ICD-10 - E11.22) 1. Uncontrolled, Type 2 diabetes A1c 8%. 2. Blood glucose levels according to [employer] 2 cgm download 09/29/21-10/12/21: Avg glucose 188. [...] addressed- pt. will have paperwork sent from [employer] for diabetic shoes. She has history of [...] Prescriptions: Trulicity/precison ana test strips sent to [facility]. Sep, Dietary counseling and surveillance (ICD-10 [...] ml/min (ICD-10 - N18.3) Keep f/u with probation officer pt reported Dr. Donaldson no longer practicing- recommend referral to [facility] Sep, BMI 40.0-44.9, adult (ICD-10 - Z68.41) Deciphering the nutrition facts label material was published [facility] Other 01-20-2022 Evaluation note* Encounter Date Diagnosis [...] addressed- pt. will have paperwork sent from [employer] for diabetic shoes. She has history of [...] ml/min (ICD-10 - N18.3) Keep f/u with probation officer. 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 reader Reason for Visit Diabetes Dietary counseling and surveillance Hyperlipidemia Hypertension [facility] Work Phone: Evaluation noteNo InformationNort [employer] Other Evaluation note* Diagnosis 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 (CMS/HCC)- Primary Preoperative clearance Unspecified pre-operative examination Bunion of right foot Bunion Essential hypertension, benign (CMS/HCC) Essential hypertension, benign Type 2 diabetes mellitus with microalbuminuria, with long-term current use of insulin ([facility]) documented in this encounter [facility] HealthcareEvaluation noteNo assessment information availableC[facility]innati [facility] Work Phone: Evaluation note* Diagnosis Sequelae, post-stroke- Primary Seizure ([facility]) Other convulsions Hypomagnesemia Disorders of magnesium metabolism Colitis Other and unspecified noninfectious gastroenteritis and colitis Abnormal brain MRI Nonspecific (abnormal) findings on radiological and other examination of skull and head Poorly controlled diabetes mellitus ([facility]) Type II or unspecified type diabetes mellitus without mention of complication, not stated as uncontrolled CKD stage 3 secondary to diabetes ([facility]) Type 2 diabetes mellitus with complication, with long-term current use of insulin ([facility]) Gait instability Abnormality of gait PBA (pseudobulbar affect) 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 [facility] Diagnosis Onset Date Resolution Status Diabetes acute Dietary counseling and surveillance acute Hyperlipidemia acute Hypertension acute [facility] Work Phone: History general Narrative - Reported* [...] 2020 Hospitalization History Seizures-[facility] 05/2020 [facility] Other History general Narrative - Reported* Type Description Date Medical History Diabetes Medical History Hypertension Medical History Bezor Medical History Chronic pelvic pain Medical History CRF stage 3 Medical History LEFT ANKLE FRACTURE WITH SURGICA L REPAIR Medical History RIGHT FOOT ABSCESS Medical History Seizures 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 Medical History HYPERLIPIDEMIA Medical History TYPE [...] 2020 Hospitalization History Seizures-[facility] 05/2020 [facility] Other History general Narrative - Reported* Type Description Date Medical History Diabetes Medical History Hypertension Medical History Bezor Medical History Chronic pelvic pain Medical History CRF stage 3 Medical History LEFT ANKLE FRACTURE WITH SURGICA L REPAIR Medical History RIGHT FOOT ABSCESS Medical History Seizures Medical History INSULIN FPC USE Medical History HYPERLIPIDEMIA Medical History TYPE [...] 2020 Hospitalization History Se[facility]ures[facility] 05/2020 [facility] Other InstructionsNot on filedocumented in this encounter [employer] SystemInstructionsNot on filedocumented in this encounter [facility] SystemInstructionsNot on filedocumented in this encounter [facility] SystemInstructionsNot on filedocumented in this encounter [facility] SystemReason for referral (narrative)* Consultation (Routine) - Pending Review Specialty Diagnoses / Procedures Referred By Jade leblanc Referred To Contact Behavioral Health Diagnoses Sequelae, post-stroke PBA (pseudobulbar affect) Yarelis Preciado MD [address] [place] [address], [address] [id number] Awa Atkinson, CURATOR-[facility] [address] [place] [address] Referral ID Status Reason Start Date Expiration Date Visits Requested Visits Authorized [id number] Pending Review Specialty Services Required 09/10/2023 09/09/2024 1 1 * Medication Prior Authorization - Pending Review Specialty Diagnoses / Procedures Referred By Jade leblanc Referred To Contact Diagnoses Sequelae, post-stroke PBA (pseudobulbar affect) Yarelis Preciado MD [address] [place] [address], [address] [id number] Referral ID Status Reason Start Date Expiration Date V isits Requested Visits Authorized [id number] Pending Review 1 1 [facility] Summary Purpose Family History No Family History Records FoundNo Family History Records FoundNo Family History Records FoundNo Family History Records FoundNo Family History Records FoundNo Family History Records FoundNo Family History Records FoundNo Family History Records FoundNo Family History Records Found Advance Directives No Advanced Directives Records FoundDocuments on File Type Date 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 Advance Directives and Living Will Power of Medical Specialist Latest Code Status on File Code Status [...] section and content) DATE CREATED AUTHOR 12/22/2017 [facility] DATE CREATED AUTHOR AUTHOR'S ORGANIZ ATION 01/24/2018 [facility] DATE CREATED AUTHOR AUTHOR'S ORGANIZ ATION 09/14/2019 [facility] DATE CREATED AUTHOR AUTHOR'S ORGANIZ ATION 05/11/2022 [facility] [employer] [facility] DATE CREATED AUTHOR AUTHOR'S ORGANIZ ATION 11/11/2022 [facility] DATE CREATED AUTHOR AUTHOR'S ORGANIZ ATION 08/13/2023 [facility] DATE CREATED AUTHOR AUTHOR'S ORGANIZ ATION 10/30/2023 [facility] DATE CREATED AUTHOR AUTHOR'S ORGANIZ ATION 11/22/2023 [facility] DATE CREATED AUTHOR AUTHOR'S ORGANIZ ATION 12/03/2023 [facility] Reason for Visit (unrecogniz ed section and content) Status Reason Specialty Diagnoses / Procedures Referre d By Contact Referred To Contact Diagnoses Vitreous hemorrhage (HCC) VITREOUS HEMORRAGE Procedures GA VITRECTOMY,MECHANICAL GA VITRECTOMY PARS PLANA REMOVE PRERETINAL MEMBRANE VITRECTOMY 25 GAUGE Martir Bang MD [facility] [facility], [address] [place] [address] [place] Reason Comments Follow-up Surgical clearance Reason Onset Date Comments [employer] 09/13/2023 Reason Comments Follow-up Patient is here toda y as a post stroke follow up Reason Onset Date Comments Request for Surgical Clearance 09/17/2023 Reason Comments Med Refill Care Teams (unrecognized sec tion and content) Engine Tester Relationship Specialty Start Date End Date Christophe Irwin MD [address] [place] [phone] PCP - General Family Medicine 07/20/23 Engine Tester Relationship Specialty Start Date End Date Christophe Irwin MD [address] [place] [phone] PCP - General Family Medicine 07/20/23 Engine Tester Relationship Specialty Start Date End Date Christophe Irwin MD [address] [place] [address] PCP - General Family Medicine 07/23/23 Engine Tester Relationship Specialty Start Date End Date Christophe Irwin MD [address] [place] [address] PCP - General Family Medicine 07/23/23 Engine Tester Relationship Specialty Start Date End Date Christophe Irwin MD [address] [place] [address] PCP - [facility] 07/23/23 Team Status: Active Member Role Status Dates Roney Sahu MD Primary Care Provider Active Team Status: Inactive Member Role Status Dates Roney Sahu MD Primary Care Provider Active Start: September 30, 2023 End: September 30, 2023 Nancy Stevens APRN Attending Provider Active Start: September 30, 2023 End: September 30, 2023 Engine Tester Relationship Specialty Start Date End Date Christophe Irwin MD [address] [place] [address] PCP - [facility] 07/23/23 Goals (unrecognized section and content) Goals [...] BE BASED ON THE PRIMARY CLINICAL RECORDS. [employer] [facility]. provides no warranty or guarantee of the accuracy or completeness of information in this document.
[2023-12-27 06:44] LABS: Basophils Absolute Auto 0.1 10^3/uL (0.0-0.1); Basophils Percent Auto 0.8 % (0.2-2.0); Eosinophils Absolute Auto 0.3 10^3/uL (0.0-0.7); Eosinophils Percent Auto 3.1 % (0.9-7.0); Hematocrit 34.3 % (36.0-48.0); Hemoglobin 11.2 g/dL (12.0-16.0); Immature Granulocytes Abs Auto 0.03 10^3/uL (0.00-0.03); Immature Granulocytes Pct Auto 0.3 % (0.0-0.5); Lymphocytes Absolute Auto 2.5 10^3/uL (1.2-3.8); Mean Corpuscular HGB Conc 32.7 g/dL (29.9-35.2); Mean Corpuscular Hemoglobin 26.4 pg (26.7-34.0); Mean Corpuscular Volume 80.9 fL (81.0-99.0); Mean Platelet Volume 9.8 fL (9.5-13.5); Monocytes Absolute Auto 0.7 10^3/uL (0.3-0.8); Monocytes Percent Auto 7.4 % (1.7-12.0); Neutrophils Absolute Auto 6.3 10^3/uL (1.4-6.5); Neutrophils Percent Auto 63.4 % (43.0-75.0); Platelet Count 336 10^3/uL (150-450); Red Blood Count 4.24 10^6/uL (4.20-5.40); Red Cell Distribution Width 13.6 % (11.0-15.0); White Blood Count 9.9 10^3/uL (4.0-11.0)
[2023-12-27 07:17] LABS: Glucometer 163 mg/dL (74-106)
[2023-12-27] MEDS: LACTATED RINGER'S SOLUTION 1,000 ML 50 ML IV ×2 (07:28→10:38)
--- NOTE | 2023-12-27 08:30 | PC.NURSE ---
Patient was consented for a peripheral block. Timeout was performed per protocol at 0806. Patient placed on 2 lpm of O2 via nasal cannula and monitor. Patient positioned on her left side. Patient medicated with Versed per Dr. Chan. Bedside ultrasound was used to locate nerve sites. Block performed from 0813 and ended at 0816 patient. Patient tolerated well and choose to continue on her side post block. Patient remains on monitor and O2 until she will be taken to OR. Patient has call light within reach.
[2023-12-27] MEDS: CEFAZOLIN SODIUM/DEXTROSE,ISO 2 GM/50 ML PIGGYBACK IV (08:59)
--- NOTE | 2023-12-27 11:35 | P.ORON_ITS ---
Brief Operative Note Date of procedure: 12/27/23 Pre-op diagnosis general: Right hallux rigidus/valgus, contracture of great toe, second hammertoe, sesamoiditis, diabetic foot ulcer Post-op diagnosis: same as pre-op Procedure: Procedures performed: Right first metatarsal phalangeal joint fusion, extensor tendon lengthening, fibular sesamoidectomy, second toe arthroplasty and application of short leg splint, intraoperative fluoroscopy examination Indications for procedure: Patient is a 63-year-old female with type 2 diabetes with peripheral neuropathy and last hemoglobin A1c of 6.5. Patient has had a 3- year history of right plantar forefoot ulceration subfirst metatarsal head. She is a history of osteomyelitis and previous tibial sesamoidectomy. She presented to us for second opinion and further treatment of her wound. Despite local wound care including serial debridements and offloading wound persisted however in the preoperative holding area the wound did appear healed but there is a preulcerative lesion over the wound site over the fibular sesamoid. Patient also had deformity of the great toe with significant arthritis and limited joint range of motion. In addition she has had issues with shoes regarding the second toe which has reducible contracture and is relatively long compared to the first and third toes. Due to her long history of ulceration and its prior recurrence we discussed potential risks and benefits of continued nonsurgical versus surgical intervention. Patient wished to proceed with the above procedures and I discussed potential risks and benefits in detail. Her blood sugars are relatively controlled however her neuropathy does increase her risk of wound/skin problems, infection and bony healing issues including nonunion. In addition she is a fall risk with an inability to be nonweightbearing and due to her neuropathy and obesity I am concerned for noncompliance and this was discussed with the patient preoperatively. Intraoperative findings: 1.2 x 1.0 cm preulcerative lesion with subdermal bleeding subsesamoid. No signs of infection. Bone quality was poor and consistent with osteopenia/osteoporosis. Great toe is in a valgus position which slightly under righted the second toe. There is dorsal contracture of the second toe which is reducible. Second toe is relatively long compared to the first and third. Fibular sesamoid was prominent and palpable under the skin with plantar fat pad atrophy being notable as well. Procedure in detail: Patient was identified in preoperative holding by myself which time correct side and site were marked and consent was obtained. Regional anesthesia was performed by the anesthesia team and preoperative antibiotics were started. Patient was brought back to the operating theater placed on table in supine position with a thigh tourniquet. Operative extremity was prepped and draped in usual sterile fashion. The right lower extremity was exsanguinated and the tourniquet was inflated. Incision created over dorsal aspect of the 1st MPJ. Bleeders coagulated. EHL tendon was contracted which prevented deformity from being reduced therefore decision was made to perform a z-lengthening of the tendon which was then protected throughout the procedure and later repaired. Capsulotomy performed and McGlammry elevator inserted into 1st MPJ. Guide Pin place in 1st metatarsal head. Conical reamers used on 1st metatarsal head to remove cartilage and subcho ndral bone. Guide pin removed. Conical reamers used on proximal phalanx in a similar manner. 2.0 mm drill used to on each side of the joint. The site was irrigated. Due to the prominence of the fibular sesamoid decision was made to excise the sesamoid. The great toe was manually distracted and the fibular sesamoid was identified. The sesamoid was then released from its soft tissue attachments including ligaments and the flexor tendon. The sesamoid was then excised and passed the back table. There is no signs of infection. Surgical site was irrigated with copious saline. 1 cc of bone allograft was then packed into the joint. Under fluoroscopy the great toe was then pinned in a rectus position with 2 guidewires which crossed 1 another spanning the joint. A 3.5 mm cannulated screw was placed from the medial aspect of the proximal phalanx across the joint and bicortically through the lateral first metatarsal cortex. Due to poor bone quality no drilling was required. A 3.[address] was [address] over the fusion site and temporarily fixed. Then airplane pilot supervisor holes were drilled for locking 3.5 mm screws which were measured and placed according to the manufactor's standard directions. Again position was checked under fluoroscopy as well as on the table. Temporary fixation was removed and additional screws were placed. Then a stab incision was placed over the medial aspect of the first metatarsal and additional 3.5 mm cannulated screw was placed from the medial aspect of the first metatarsal across the joint and exiting bicortically through the lateral cortex of the proximal phalanx. All hardware was placed under fluoroscopic guidance. Again position was checked on the table and under fluoroscopy. The surgical site was irrigated with copious amounts of sterile saline. The extensor tendon was then repaired in a lengthened but physiologic tension utilizing observable suture. Absorbable deep sutures were used to close fascia. With attention to the 2nd digit a dorsal incision was created over the PIPJ. Sharp and blunt dissection down to the extensor tendon was performed. The tendon was incised transversely then reflected proximally. A sagittal saw was used to remove the proximal phalanx head. The site was flushed with sterile saline. The tendon was repaired with absorbable suture. Incisions were then repaired in layers. The tourniquet was dropped and a prompt hyperemic response was noted. Xeroform and 4 x 4's were placed over the incision followed by kerlix. Then multiple layers of Webril were placed from the forefoot to the popliteal fossa followed by a layer of Ayush wrap's and additional layers of Webril. A plaster posterior splint was then applied and the foot and ankle were held in neutral position while was allowed to dry. The splint was then held in place by an additional layer of Ayush wrap's Postoperative plan: Discharge home under family's care Patient is to remain nonambulatory but may place weight on the heel for transfers and for balance Prescriptions were sent to the pharmacy Patient should follow-up later this week for a dressing change and placement into total contact cast Implants: Medline 3.5 mm cannulated screws (x2) and 3.5 mm locking 1st MPJ plate; Isto Sparc bone allograft 1cc Anesthesia: regional and General-LMA Surgeon: Edilberto Mata Farmworker Vegetable: Miguel Wiggins Estimated blood loss (mL): 10 Condition: stable Disposition: PACU
--- NOTE | 2023-12-27 12:17 | XR_ITS ---
The [address] [address] Patient Name: OLY MARTIN MRN: [id number] date: 1960 Sex: F Assigned Patient Location: [facility] Current Patient Location: Accession/Order Number: [id number] Exam Date: 12/27/2023 12:30 Report Date: 12/28/2023 13:49 At the request of: ANTHONY MITCHELL Procedure: XR foot RT min 3V PROCEDURE: XR foot RT min 3V HISTORY: postop xr pacu COMPARISON: XR foot right 04/08/2023, fluoroscopy 12/27/2023 FINDINGS: BONES:Mechanical fusion the first metatarsophalangeal joint via dorsal plate and screws. SOFT TISSUES:Images are slightly obscured by overlying cast material. EFFUSION:None visible. OTHER: Negative. XR/XR foot RT min 3V IMPRESSION: 1. Mechanical fusion of first metatarsophalangeal joint. Electronically authenticated by: AMANDA HOSKINS Date: 12/28/2023 13:49
[2023-12-27 12:25] LABS: Glucometer 230 mg/dL (74-106)
--- NOTE | 2023-12-27 13:01 | PC.NURSE ---
Up to [facility] WITH ASSIST AND VOIDED WITHOUT DIFFICULTY; SITTING IN CHAIR
== END 2023-12-27 13:30 | disposition home or self-care (01) ==
PROVIDERS: Anesthesiology; PCP Family Medicine; Visit Provider Podiatrist Foot & Ankle Surgery
PROC: (CPT 1470; principal; 2023-12-27 08:30)
DX: M20.21 Hallux rigidus, right foot (principal); M20.11 Hallux valgus (acquired), right foot; E11.621 Type 2 diabetes mellitus with foot ulcer; M20.41 Other hammer toe(s) (acquired), right foot; M24.59 Contracture, other specified joint; E11.42 Type 2 diabetes mellitus with diabetic polyneuropathy; Z79.4 Long term (current) use of insulin; Z90.49 Acquired absence of other specified parts of digestive tract; Z90.710 Acquired absence of both cervix and uterus; I10 Essential (primary) hypertension; E78.5 Hyperlipidemia, unspecified; Z86.73 Personal history of transient ischemic attack (TIA), and cerebral infarction without residual deficits; K21.9 Gastro-esophageal reflux disease without esophagitis
CPT/HCPCS: 28208; 28285; 28315; 28750; 36415; 64445; 73630; 76000; 82948; 85025; C1713; J0330; J0690; J1100; J1290; J2250; J2405; J2704; J2795; J3010

== ENCOUNTER 2024-01-05 13:58 | Outpatient (OUT) | payer MEDICARE, MEDICAID, SELFPAY | END 2024-01-05 13:59 | disposition home or self-care (01) | LOC: WC 13:58 | PROVIDERS: PCP Family Medicine; Visit Provider Podiatrist Foot & Ankle Surgery | DX: T81.89XA Other complications of procedures, not elsewhere classified, initial encounter (principal) | CPT/HCPCS: 29445 ==

== ENCOUNTER 2024-01-14 11:05 | Outpatient (OUT) | payer MEDICARE, MEDICAID, SELFPAY ==
--- NOTE | 2024-01-14 | XR_ITS ---
The [address] [address] Patient Name: OLY MARTIN MRN: [id number] date: 1960 Sex: F Assigned Patient Location: Current Patient Location: Accession/Order Number: [id number] Exam Date: 01/14/2024 11:10 Report Date: 01/17/2024 11:10 At the request of: MONET MARTEL Procedure: XR foot RT min 3V PROCEDURE: XR foot RT min 3V COMPARISON: 12/27/2023 HISTORY: RIGHT FOOT PAIN FINDINGS: BONES:Stable fusion the first metatarsal-phalangeal joint with a dorsal plate and screws. Remote osteotomy head of the second proximal phalanx. Moderate plantar enthesopathic spurring of the calcaneus. No acute fracture or dislocation. SOFT TISSUES:Negative. No visible soft tissue swelling. EFFUSION:None visible. OTHER: Vascular calcifications XR/XR foot RT min 3V IMPRESSION: Stable first metatarsal-phalangeal joint fusion Electronically authenticated by: NAV PEREZ Date: 01/17/2024 11:10
--- OUTSIDE RECORDS SUMMARY | 2024-01-14 11:28 | XMS_ITS | CCD ---
Author Organization [facility] Care Team Providers Care Gradall Operator Name Role Phone GUTIERREZ, ALAYNA Unavailable Unavailable GUTIERREZ, ALAYNA Unavailable Unavailable GUTIERREZ, ALAYNA Unavailable Unavailable GUTIERREZ, ALAYNA Unavailable Unavailable VIRGEN, MARLA Unavailable Unavailable VIRGEN, MARLA Unavailable Unavailable VIRGEN, MARLA Unavailable Unavailable VIRGEN, MARLA Unavailable Unavailable VIRGEN, MARLA Unavailable Unavailable BABIUCH, BRITTANY Unavailable Unavailable BARTOLO, MARTIR T Admitting Unavailable BARTOLO, MARTIR T Attending Unavailable CHRISTOPHE IRWIN Primary Care UnavailChristophe Dunbar Primary Care Provider [phone] RogerShailesh villalobos Unavailable Fadumo Chau Unavailable PROVIDER, [...] Unavailable Christophe Irwin MD Primary Care Provider [phone] CHRISTOPHE IRWIN Attending Unavailable NADERER, CHRISTOPHE Attending [...] (PF)] Drug Allergy 01-31-20 14 Anaphylaxis [facility] Repository (20 sources) morphine; Translations: [MORPHINE] Drug Allergy 01-31-20 Other (See Comments), Anaphylaxis, Unknown, Other [facility]ository (20 sources) Meperidine; Translations: [MEPERIDINE] Drug Allergy 01-31-20 14 Other (See Comments), Anaphylaxis, Unknown [place], [place] (7 sources) Sertraline; Translations: [SERTRALINE HCL] Drug Allergy 09-05-19 Hives [place], [place] (1 source) Other Propensity to adverse reactions 09-05-19 Other (See Comments) [place], [place] (20 sources) Acetaminophen; Translations: [ACETAMINOPHEN] Drug Allergy 05-06-20 Unknown, Constipation [facility] (1 source) Meperidine Drug Allergy 03-06-20 15 [facility] Repository (1 source) Sertraline Drug Allergy 05-11-20 20 [facility] (1 source) Tylenol-Codeine #3 Drug allergy (disorder) 05-11-20 [facility] (6 sources) dulaglutide Drug Allergy 05-06-20 23 g/i [facility] (7 sources) semaglutide; Translations: [SEMAGLUTIDE] Drug Allergy 05-06-20 23 g/i s/e [facility] (16 sources) Acetaminophen / Codeine; Translations: [ACETAMINOPHEN-CO DEINE] Drug Allergy 08-13-19 18 Shortness of breath, Abdominal Pain [facility] (3 sources) Meperidine Drug Allergy 12-15-19 23 Unknown [facility] (4 sources) Sertraline; Translations: [SERTRALINE] Drug Allergy 09-05-19 [facility] (1 source) Acetaminophen Drug Allergy 05-06-20 [facility] (1 source) dulaglutide Drug Allergy 05-06-20 [facility] (1 source) Meperidine Drug Allergy 05-06-20 [facility] (1 source) semaglutide Drug allergy (disorder) 05-06-20 [facility] Repository Medications Current Medications Medication Drug Class(es) [...] 1 capsule Orally Active Cholecalciferol 1.25 MG (66039 UT) 1 capsule Orally Active dapagliflozin 10 mg oral tablet (8 sources) Sodium-Glucose Cotransporter 2 Inhibitor take 1 tablet by mouth in the morning dapagliflozin (FARXIGA) 10 mg tablet Take 1 tablet (10 mg total) by mouth in the morning. 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 of insulin] Onset: 11-01-2017 Resolved: [...] Range Facility Office Visiton 12-01-2023 Follow-up visit [id number] Lisa Harrell Karena 1960 F Date Provider Department Center 12/01/2023 RUPESH MAHMOOD [facility] Family History Adopted: Yes Family history unknown: Yes Level of Service:33427 NM OFFICE/OUTPATIENT NEW MODERATE MDM 45 MINUTES Normal [facility] CBC AND AUTO DIFFon 11-20-19 ABSOLUTE BASOPHIL 0.1 X10E9/L Normal 0.0-0.2 [facility] Comment on above: Performed By: #### C BCA, CMP, 81228-6, THYR #### [facility] ([id number]) [address] [place] [address] 86775 #### 69827-1, 2088-06 #### [facility] ([id number]) [address] [place] [address], [address] [place] [address] ABSOLUTE NEUTROPHIL 8.2 X10E9/L High 1.5-6.6 [facility] Comment on above: Performed By: #### C BCA, CMP, 81737-6, THYR #### [facility] ([id number]) [address] [place] [address] 61852 #### 75305-3, 2088-06 #### [facility] ([id number]) [address] [place] [address], [address] [place] [address] Basophils/100 WBC (Bld) 0.8 % Normal [facility] Comment on above: Performed By: #### C BCA, CMP, 39440-0, THYR #### [facility] ([id number]) [address] [place] [address]138 #### 88435-6, 2088-06 #### [facility] ([id number]) [address] [place] [address], [address] [place] [address] Eosinophils (Bld) [#/Vol] 0.1 10*3/uL Normal 0.0-0.4 [facility] Comment on above: Performed By: #### C BCA, CMP, 69598-8, THYR #### [facility] ([id number]) [address] [place] [address] 98500 #### 74175-3, 2088-06 #### [facility] ([id number]) [address] [place] [address], [facility] [address] [place] [address] Eosinophils/100 WBC (Bld) 1.4 % Normal [facility] Comment on above: Performed By: #### C BCA, CMP, 94485-1, THYR #### [facility] ([id number]) [address] [place] [address] 04450 #### 51391-1, 2088-06 #### [facility] ([id number]) [address] [place] [address], [facility] [address] [place] [address] Erythrocyte distribution width (RBC) [Ratio] 14.4 % Normal 11.5-15.0 [facility] Comment on above: Performed By: #### C BCA, CMP, 94786-0, THYR #### [facility] ([id number]) [address] [place] [address] 42743 #### 61907-0, 2088-06 #### [facility] ([id number]) [address] [place] [address], [address] [place] [address] Hematocrit (Bld) [Volume fraction] 34.1 % Low 35-47 [facility] Comment on above: Performed By: #### C BCA, CMP, 57703-0, THYR #### [facility] ([id number]) [address] [place] [address] #### 40156-5, 2088-06 #### [facility] ([id number]) [address], [address] [place] [address] Hemoglobin (Bld) [Mass/Vol] 11.4 g/dL Low 11.7-15.5 [facility] Comment on above: Performed By: #### C BCA, CMP, 66819-0, THYR #### [facility] ([id number]) [address] [place] [address] 55907 #### 59110-1, 2088-06 #### [facility] ([id number]) [address], [address] [place] [address] Lymphocytes (Bld) [#/Vol] 1.4 10*3/uL Normal 1.0-3.5 [facility] Comment on above: Performed By: #### C BCA, CMP, 11992-6, THYR #### [facility] ([id number]) [address] [place] [address] 70871 #### 04798-5, 2088-06 #### [facility] ([id number]) [address], [address] [place] [address] Lymphocytes/100 WBC (Bld) 13.2 % Normal [facility] Comment on above: Performed By: #### Teresa BCA, CMP, 62596-4, THYR #### [facility] ([id number]) [address] [place] [address] 59256 #### 14411-0, 2088-06 #### [facility] ([id number]) [address], [address] [place] [address] MCH (RBC) [Entitic mass] 26.5 pg Low 27-34 [facility] Comment on above: Performed By: #### C BCA, CMP, 77021-1, THYR #### [facility] ([id number]) [address] [place] [address] 37728 #### 85702-8, 2088-06 #### [facility] ([id number]) [address], [address] [place] [address] MCHC (RBC) [Mass/Vol] 33.4 g/dL Normal 32-36 [facility] Comment on above: Performed By: #### C BCA, CMP, 88724-7, THYR #### [facility] ([id number]) [address] [place] [address] 79821 #### 36611-3, 2088-06 #### [facility] ([id number]) [address], [address] [place] [address] MCV (RBC) [Entitic vol] 79 fL Low 80-100 [facility] Comment on above: Performed By: #### C BCA, CMP, 35477-7, THYR #### [facility] ([id number]) [address] [place] [address] 85622 #### 28589-6, 2088-06 #### [facility] ([id number]) [address], [address] [place] [address] Monocytes (Bld) [#/Vol] 0.6 10*3/uL Normal 0-0.9 [facility] Comment on above: Performed By: #### C BCA, CMP, 63045-2, THYR #### [facility] ([id number]) [address] [place] [address] 15840 #### 23051-8, 2088-06 #### [facility] ([id number]) [address], [address] [place] [address] Monocytes/100 WBC (Bld) 5.5 % Normal [facility] Comment on above: Performed By: #### C BCA, CMP, 34610-2, THYR #### [facility] ([id number]) [address] [place] [address] 46500 #### 47576-4, 2088-06 #### [facility] ([id number]) [address], [address] [place] [address] Neutrophils/100 WBC (Bld) 79.1 % Normal [facility] Comment on above: Performed By: #### C BCA, CMP, 94108-7, THYR #### [facility] ([id number]) [address] [place] [address] 34252 #### 05897-6, 2088-06 #### [facility] ([id number]) [address] [facility], [address] [place] [address] Platelet mean volume (Bld) [Entitic vol] 8.2 fL Normal 7-12 [facility] Comment on above: Performed By: #### C BCA, CMP, 39352-5, THYR #### [facility] ([id number]) [address] [place] [address] 19923 #### 46887-8, 2088-06 #### [facility] ([id number]) [address], [address] [place] [address] Platelets (Bld) [#/Vol] 346 10*3/uL Normal 150-450 [facility] Comment on above: Performed By: #### C BCA, CMP, 06993-4, THYR #### [facility] ([id number]) [address] [place] [address] 07429 #### 91162-8, 2088-06 #### [facility] ([id number]) [address], [address] [place] [address] RBC COUNT 4.29 X10E12/L Normal 3.80-5.20 [facility] Comment on above: Performed By: #### C BCA, CMP, 06893-2, THYR #### [facility] ([id number]) [address] [place] [address] 64000 #### 63004-2, 2088-06 #### [facility] ([id number]) [address], [address] [place] [address] WBC (Bld) [#/Vol] 10.4 10*3/uL Normal 4.0-11.0 [facility] Comment on above: Performed By: #### C BCA, CMP, 85687-8, THYR #### [facility] ([id number]) [address] [place] [address] 64451 #### 28437-6, 2088-06 #### [facility] ([id number]) [address], [address] [place] [address] COMPREHENSIVE METABOLIC PANE [facility] 11-20-2023 Albumin [Mass/Vol] 3.7 g/dL Normal 3.2-5.3 [facility] Comment on above: Performed By: #### C BCA, CMP, 20262-3, THYR #### [facility] ([id number]) [address] [place] [address] 07998 #### 77608-4, 2088-06 #### [facility] ([id number]) [address], [address] [place] [address] ALP [Catalytic activity/Vol] 121 U/L Normal 39-130 [facility] Comment on above: Performed By: #### C BCA, CMP, 00094-6, THYR #### [facility] ([id number]) [address] [place] [address] 24504 #### 87159-7, 2088-06 #### [facility] ([id number]) [address], [address] [place] [address] ALT [Catalytic activity/Vol] 12 U/L Normal 0-31 [facility] Comment on above: Performed By: #### C BCA, CMP, 61204-0, THYR #### [facility] ([id number]) [address] [place] [address] 91518 #### 94288-3, 2088-06 #### [facility] ([id number]) [address] [facility], [address] [place] [address] Anion gap [Moles/Vol] 9 mmol/L Normal 5-15 [facility] Comment on above: Performed By: #### C BCA, CMP, 70314-8, THYR #### [facility] ([id number]) [address] [place] [address] 61870 #### 79864-1, 2088-06 #### [facility] ([id number]) [address] [facility], [address] [place] [address] AST [Catalytic activity/Vol] 16 U/L Normal 0-41 [facility] Comment on above: Performed By: #### C BCA, CMP, 68866-6, THYR #### [facility] ([id number]) [address] [place] [address] 23541 #### 88611-5, 2088-06 #### [facility] ([id number]) [address] [facility], [address] [place] [address] Bilirubin [Mass/Vol] 0.4 mg/dL Normal 0.3-1.2 [facility] Comment on above: Performed By: #### C BCA, CMP, 03882-7, THYR #### [facility] ([id number]) [address] [place] [address] 30427 #### 30132-0, 2088-06 #### [facility] ([id number]) [address] [facility], [address] [place] [address] Calcium [Mass/Vol] 9.3 mg/dL Normal 8.5-10.5 [facility] Comment on above: Performed By: #### C BCA, CMP, 71960-8, THYR #### [facility] ([id number]) [address] [place] [address] 71746 #### 52336-0, 2088-06 #### [facility] ([id number]) [address] [facility], [address] [place] [address] Chloride [Moles/Vol] 101 mmol/L Normal 98-109 [facility] Comment on above: Performed By: #### C BCA, CMP, 61071-5, THYR #### [facility] ([id number]) [address] [place] [address] 91887 #### 53183-3, 2088-06 #### [facility] ([id number]) [address] [facility], [address] [place] [address] CO2 [Moles/Vol] 23 mmol/L Normal 22-32 [facility] Comment on above: Performed By: #### C BCA, CMP, 52129-3, THYR #### [facility] ([id number]) [address] [place] [address] 84953 #### 13015-0, 2088-06 #### [facility] ([id number]) [address] [facility], [address] [place] [address] Creatinine [Mass/Vol] 2.20 mg/dL High 0.40-1.00 [facility] Comment on above: Result Comment: METH OD TRACEABLE TO IDMS STANDARD Performed By: #### C BCA, CMP, 45469-2, THYR #### [facility] ([id number]) [address] [place] [address] 29173 #### 49777-9, 2089-1 #### [facility] ([id number]) [address], [address] [place] [address] GFR/1.73 sq M.predicted among non-blacks MDRD (S/P/Bld) [Vol rate/Area] 25 mL/min/{1.73_m2} Low >59 [facility] Comment on above: Result Comment: Reported eGFR is based on the CKD-EPI 2020 equation that does not use a race coefficient. Performed By: #### C MARQUES, CMP, 47363-2, THYR #### [facility] ([id number]) [address] [place] [address] 32929 #### 39834-4, 2088-06 #### [facility] ([id number]) [address], [address] [place] [address] Glucose [Mass/Vol] 148 mg/dL High 65-99 [facility] Comment on above: Performed By: #### C BCA, CMP, 70994-9, THYR #### [facility] ([id number]) [address] [place] [address] 46568 #### 75522-9, 2088-06 #### [facility] ([id number]) [address], [address] [place] [address] Potassium [Moles/Vol] 4.1 mmol/L Normal 3.5-5.0 [facility] Comment on above: Performed By: #### C BCA, CMP, 72248-8, THYR #### [facility] ([id number]) [address] [place] [address] 84579 #### 20157-8, 2088-06 #### [facility] ([id number]) [address], [address] [place] [address] Protein [Mass/Vol] 7.9 g/dL Normal 6.0-8.0 [facility] Comment on above: Performed By: #### C BCA, CMP, 80123-2, THYR #### [facility] ([id number]) [address] [place] [address] 42192 #### 15873-8, 2088-06 #### [facility] ([id number]) [address], [address] [place] [address] Sodium [Moles/Vol] 133 mmol/L Low 134-146 [facility] Comment on above: Performed By: #### C BCA, CMP, 61425-5, THYR #### [facility] ([id number]) [address] [place] [address] 43310 #### 28502-9, 2088-06 #### [facility] ([id number]) [address] [facility], [address] [place] [address] Urea nitrogen [Mass/Vol] 38 mg/dL High 5-27 [facility] Comment on above: Performed By: #### C BCA, CMP, 95283-5, THYR #### [facility] ([id number]) [address] [place] [address] 63926 #### 30927-0, 2088-06 #### [facility] ([id number]) [address] [facility], [address] [place] [address] LIPASEon 11-20-2023 Lipase [Catalytic activity/Vol] 35 U/L Normal 17-40 [facility] Comment on above: Performed By: #### C BCA, CMP, 31736-0, THYR #### [facility] ([id number]) [address] [place] [address] 97078 #### 58788-8, 2088-06 #### [facility] ([id number]) [address], [address] [place] [address] Lactate (P brendon) [Moles/Vol]o n 11-20-2023 LACTATE W/REFLEX 1.6 mmol/L Normal 0.4-2.0 [facility] Comment on above: Result Comment: Result did not trigger repeat Lactate, re-order if needed. Performed By: #### C MARQUES CMP, 80479-4, THYR #### [facility] ([id number]) [address] [place] [address] 69191 #### 55030-1, 2088-06 #### [facility] ([id number]) [address], [address] [place] [address] Natriuretic peptide B [Mass/ Vol]on 11-20-2023 Natriuretic peptide B (Bld) [Mass/Vol] 132 pg/mL High <100.0 [facility] Comment on above: Performed By: #### C MARQUES CMP, 26615-0, THYR #### [facility] ([id number]) [address] [place] [address] 51391 #### 47613-1, 2088-06 #### [facility] ([id number]) [address], [address] [place] [address] Troponin I.cardiac High sens itivity method [Mass/Vol]on 11-20-2023 1 HOUR TROP I, HIGH SENSITIVITY 15 ng/L Normal <16 [facility] Comment on above: Performed By: #### C MARQUES CMP, 37561-5, THYR #### [facility] ([id number]) [address] [place] [address] 30391 #### 09037-6, 2088-06 #### [facility] ([id number]) [address], [address] [place] [address] TROPONIN I, HIGH SENSITIVITY 14 ng/L Normal <16 [facility] Comment on above: Performed By: #### C BCA, CMP, 44934-8, THYR #### [facility] ([id number]) [address] [place] [address] 53787 #### 08277-4, 2088-06 #### [facility] ([id number]) [address], [address] [place] [address] CBC AND AUTO DIFFon 07-26-19 24 ABSOLUTE BASOPHIL 0.1 X10E9/L Normal 0.0-0.2 [facility] Comment on above: Performed By: #### C BCA, CMP, 38661-0, THYR #### [facility] ([id number]) [address] [place] [address] 38073 #### 21034-8, 2088-06 #### [facility] ([id number]) [address] [facility], [address] [place] [address] ABSOLUTE NEUTROPHIL 5.4 X10E9/L Normal 1.5-6.6 [facility] Comment on above: Performed By: #### C BCA, CMP, 27349-2, THYR #### [facility] ([id number]) [address] [place] [address] 90972 #### 49428-8, 2088-06 #### [facility] ([id number]) [address] [facility], [address] [place] [address] Basophils/100 WBC (Bld) 0.8 % Normal [facility] Comment on above: Performed By: #### C BCA, CMP, 86750-0, THYR #### [facility] ([id number]) [address] [place] [address] 07403 #### 32451-2, 2088-06 #### [facility] ([id number]) [address] [facility], [address] [place] [address] Eosinophils (Bld) [#/Vol] 0.3 10*3/uL Normal 0.0-0.4 [facility] Comment on above: Performed By: #### C BCA, CMP, 74896-3, THYR #### [facility] ([id number]) [address] [place] [address] #### 97226-7, 2088-06 #### [facility] ([id number]) [address], [address] [place] [address] Eosinophils/100 WBC (Bld) 3.7 % Normal [facility] Comment on above: Performed By: #### C MARQUES, CMP, 84114-5, THYR #### [facility] ([id number]) [address] [place] [address] #### 80719-6, 2088-06 #### [facility] ([id number]) [address], [address] [place] [address] Erythrocyte distribution width (RBC) [Ratio] 14.6 % Normal 11.5-15.0 [facility] Comment on above: Performed By: #### C MARQUES, CMP, 19919-0, THYR #### [facility] ([id number]) [address] [place] [address] #### 33716-1, 2088-06 #### [facility] ([id number]) [address], [address] [place] [address] Hematocrit (Bld) [Volume fraction] 31.9 % Low 35-47 [facility] Comment on above: Performed By: #### C MARQUES, CMP, 61162-7, THYR #### [facility] ([id number]) [address] [place] [address] #### 19404-4, 2088-06 #### [facility] ([id number]) [address], [address] [place] [address] Hemoglobin (Bld) [Mass/Vol] 10.9 g/dL Low 11.7-15.5 [facility] Comment on above: Performed By: #### C MARQUES, CMP, 77996-0, THYR #### [facility] ([id number]) [address] [place] [address] #### 36991-2, 2088-06 #### [facility] ([id number]) [address], [address] [place] [address] Lymphocytes (Bld) [#/Vol] 2.6 10*3/uL Normal 1.0-3.5 [place] [facility] Comment on above: Performed By: #### C BCA, CMP, 90716-5, THYR #### [facility] ([id number]) [address] [place] [address] 92558 #### 35495-6, 2088-06 #### [facility] ([id number]) [address], [address] [place] [address] Lymphocytes/100 WBC (Bld) 28.6 % Normal [facility] Comment on above: Performed By: #### C BCA, CMP, 86406-0, THYR #### [facility] ([id number]) [address] [place] [address] 77906 #### 13370-2, 2088-06 #### [facility] ([id number]) [address], [address] [place] [address] MCH (RBC) [Entitic mass] 27.4 pg Normal 27-34 [facility] Comment on above: Performed By: #### C BCA, CMP, 89510-1, THYR #### [facility] ([id number]) [address] [place] [address] 65189 #### 51368-0, 2088-06 #### [facility] ([id number]) [address], [address] [place] [address] MCHC (RBC) [Mass/Vol] 34.2 g/dL Normal 32-36 [facility] Comment on above: Performed By: #### C BCA, CMP, 39877-8, THYR #### [facility] ([id number]) [address] [place] [address] 89505 #### 43592-7, 2088-06 #### [facility] ([id number]) [address], [address] [place] [address] MCV (RBC) [Entitic vol] 80 fL Normal 80-100 [facility] Comment on above: Performed By: #### C BCA, CMP, 27736-1, THYR #### [facility] ([id number]) [address] [place] [address] 06702 #### 22522-6, 2088-06 #### [facility] ([id number]) [address], [address] [place] [address] Monocytes (Bld) [#/Vol] 0.8 10*3/uL Normal 0-0.9 [facility] Comment on above: Performed By: #### C BCA, CMP, 75214-8, THYR #### [facility] ([id number]) [address] [place] [address] 80866 #### 18617-3, 2088-06 #### [facility] ([id number]) [address], [address] [place] [address] Monocytes/100 WBC (Bld) 8.1 % Normal [facility] Comment on above: Performed By: #### C BCA, CMP, 76102-4, THYR #### [facility] ([id number]) [address] [place] [address] 54740 #### 82617-2, 2088-06 #### [facility] ([id number]) [address], [address] [place] [address] Neutrophils/100 WBC (Bld) 58.8 % Normal [facility] Comment on above: Performed By: #### C BCA, CMP, 24617-3, THYR #### [facility] ([id number]) [address] [place] [address] 08417 #### 36213-5, 2088-06 #### [facility] ([id number]) [address], [address] [place] [address] Platelet mean volume (Bld) [Entitic vol] 8.3 fL Normal 7-12 [facility] Comment on above: Performed By: #### C BCA, CMP, 21398-4, THYR #### [facility] ([id number]) [address] [place] [address] 01856 #### 19612-4, 2088-06 #### [facility] ([id number]) [address] [facility], [address] [place] [address] Platelets (Bld) [#/Vol] 271 10*3/uL Normal 150-450 [facility] Comment on above: Performed By: #### Teresa BCA, CMP, 08384-7, THYR #### [facility] ([id number]) [address] [place] [address] 08976 #### 01298-2, 2088-06 #### [facility] ([id number]) [address], [address] [place] [address] RBC COUNT 3.98 X10E12/L Normal 3.80-5.20 [facility] Comment on above: Performed By: #### C BCA, CMP, 95768-3, THYR #### [facility] ([id number]) [address] [place] [address] 74802 #### 26711-2, 2088-06 #### [facility] ([id number]) [address] [facility], [address] [place] [address] WBC (Bld) [#/Vol] 9.2 10*3/uL Normal 4.0-11.0 [facility] Comment on above: Performed By: #### C BCA, CMP, 87802-9, THYR #### [facility] ([id number]) [address] [place] [address] 10653 #### 08692-9, 2088-06 #### [facility] ([id number]) [address] [place] [address], [address] [place] [address] COMPREHENSIVE METABOLIC PANE Ace 07-26-2023 Albumin [Mass/Vol] 3.2 g/dL Normal 3.2-5.3 [facility] Comment on above: Performed By: #### C BCA, CMP, 98342-2, THYR #### [facility] ([id number]) [address] [place] [address] 92322 #### 66746-7, 2088-06 #### [facility] ([id number]) [address] [place] [address], [address] [place] [address] ALP [Catalytic activity/Vol] 105 U/L Normal 39-130 [facility] Comment on above: Performed By: #### C BCA, CMP, 07257-8, THYR #### [facility] ([id number]) [address] [place] [address] 32379 #### 28677-0, 2088-06 #### [facility] ([id number]) [address] [place] [address], [address] [place] [address] ALT [Catalytic activity/Vol] 10 U/L Normal 0-31 [facility] Comment on above: Performed By: #### C BCA, CMP, 31913-4, THYR #### [facility] ([id number]) [address] [place] [address] 42163 #### 84175-8, 2088-06 #### [facility] ([id number]) [address] [facility], [address] [place] [address] Anion gap [Moles/Vol] 12 mmol/L Normal 5-15 [facility] Comment on above: Performed By: #### C BCA, CMP, 46937-9, THYR #### [facility] ([id number]) [address] [place] [address] 36579 #### 55977-7, 2088-06 #### [facility] ([id number]) [address] [facility], [address] [place] [address] AST [Catalytic activity/Vol] 14 U/L Normal 0-41 [facility] Comment on above: Performed By: #### C BCA, CMP, 67268-1, THYR #### [facility] ([id number]) [address] [place] [address] 78253 #### 91170-7, 2088-06 #### [facility] ([id number]) [address] [facility], [address] [place] [address] Bilirubin [Mass/Vol] 0.4 mg/dL Normal 0.3-1.2 [facility] Comment on above: Performed By: #### C BCA, CMP, 86347-2, THYR #### [facility] ([id number]) [address] [place] [address] 53912 #### 17177-5, 2088-06 #### [facility] ([id number]) [address] [facility], [address] [place] [address] Calcium [Mass/Vol] 9.0 mg/dL Normal 8.5-10.5 [facility] Comment on above: Performed By: #### C BCA, CMP, 20366-4, THYR #### [facility] ([id number]) [address] [place] [address] 01874 #### 73244-6, 2088-06 #### [facility] ([id number]) [address] [facility], [address] [place] [address] Chloride [Moles/Vol] 96 mmol/L Low 98-109 [facility] Comment on above: Performed By: #### C BCA, CMP, 90070-0, THYR #### [facility] ([id number]) [address] [place] [address] 18393 #### 56381-8, 2088-06 #### [facility] ([id number]) [address] [facility], [address] [place] [address] CO2 [Moles/Vol] 22 mmol/L Normal 22-32 [facility] Comment on above: Performed By: #### C BCA, CMP, 64689-7, THYR #### [facility] ([id number]) [address] [place] [address] 12261 #### 59855-1, 2088-06 #### [facility] ([id number]) [address] [facility], [address] [place] [address] Creatinine [Mass/Vol] 2.38 mg/dL High 0.40-1.00 [facility] Comment on above: Result Comment: METH OD TRACEABLE TO IDMS STANDARD Performed By: #### C BCA, CMP, 64789-7, THYR #### [facility] ([id number]) [address] [place] [address] 20498 #### 93299-9, 2088-06 #### [facility] ([id number]) [address] [facility], [address] [place] [address] GFR/1.73 sq M.predicted among non-blacks MDRD (S/P/Bld) [Vol rate/Area] 23 mL/min/{1.73_m2} Low >59 [facility] Comment on above: Result Comment: Reported eGFR is based on the CKD-EPI 2020 equation that does not use a race coefficient. Performed By: #### C BCA, CMP, 27785-8, THYR #### [facility] ([id number]) [address] [place] [address] 88903 #### 51292-5, 2088-06 #### [facility] ([id number]) [address], [address] [place] [address] Glucose [Mass/Vol] 116 mg/dL High 65-99 [facility] Comment on above: Performed By: #### C BCA, CMP, 38658-8, THYR #### [facility] ([id number]) [address] [place] [address] 10272 #### 90779-3, 2088-06 #### [facility] ([id number]) [address], [address] [place] [address] Potassium [Moles/Vol] 3.3 mmol/L Low 3.5-5.0 [facility] Comment on above: Performed By: #### C BCA, CMP, 63736-8, THYR #### [facility] ([id number]) [address] [place] [address] 77678 #### 39733-2, 2088-06 #### [facility] ([id number]) [address], [address] [place] [address] Protein [Mass/Vol] 7.0 g/dL Normal 6.0-8.0 [facility] Comment on above: Performed By: #### C BCA, CMP, 55424-4, THYR #### [facility] ([id number]) [address] [place] [address] 74863 #### 35830-5, 2088-06 #### [facility] ([id number]) [address], [address] [place] [address] Sodium [Moles/Vol] 130 mmol/L Low 134-146 [facility] Comment on above: Performed By: #### C NIKKY MOHAN, 69403-6, THYR #### [facility] ([id number]) [address] [place] [address] 53185 #### 28026-8, 2088-06 #### [facility] ([id number]) [address], [address] [place] [address] Urea nitrogen [Mass/Vol] 43 mg/dL High 5-23 [facility] Comment on above: Performed By: #### C NIKKY MOHAN, 91988-5, THYR #### [facility] ([id number]) [address] [place] [address] 28724 #### 58994-3, 2088-06 #### [facility] ([id number]) [address], [address] [place] [address] Glucose Glucometer (BldC) [M ass/Vol]on 07-26-2023 Glucose [Mass/Vol] 174 mg/dL High 65-99 [facility] MAGNESIUMon 07-26-2023 Magnesium [Mass/Vol] 1.9 mg/dL Normal 1.8-2.6 [facility] Comment on above: Performed By: #### C MARQUES, CMP, 48428-4, THYR #### [facility] ([id number]) [address] [place] [address] 11975 #### 59913-8, 2088-06 #### [facility] ([id number]) [address], [address] [place] [address] CBC AND AUTO DIFFon 07-25-19 24 ABSOLUTE BASOPHIL 0.1 X10E9/L Normal 0.0-0.2 [facility] Comment on above: Performed By: #### C MARQUES, CMP, 84146-4, THYR #### [facility] ([id number]) [address] [place] [address] 22583 #### 03895-9, 2088-06 #### [facility] ([id number]) [address] [place] [address], [address] [place] [address] ABSOLUTE NEUTROPHIL 6.6 X10E9/L Normal 1.5-6.6 [facility] Comment on above: Performed By: #### C BCA, CMP, 51236-1, THYR #### [facility] ([id number]) [address] [place] [address] 90928 #### 16717-0, 2088-06 #### [facility] ([id number]) [address] [place] [address], [address] [place] [address] Basophils/100 WBC (Bld) 0.7 % Normal [facility] Comment on above: Performed By: #### C BCA, CMP, 23153-5, THYR #### [facility] ([id number]) [address] [place] [address] 31041 #### 47143-4, 2088-06 #### [facility] ([id number]) [address] [place] [address], [address] [place] [address] Eosinophils (Bld) [#/Vol] 0.3 10*3/uL Normal 0.0-0.4 [facility] Comment on above: Performed By: #### C BCA, CMP, 17266-8, THYR #### [facility] ([id number]) [address] [place] [address] 76272 #### 68318-9, 2088-06 #### [facility] ([id number]) [address] [place] [address], [address] [place] [address] Eosinophils/100 WBC (Bld) 2.8 % Normal [facility] Comment on above: Performed By: #### C BCA, CMP, 68082-1, THYR #### [facility] ([id number]) [address] [place] [address] 16803 #### 97399-3, 2088-06 #### [facility] ([id number]) [address], [address] [place] [address] Erythrocyte distribution width (RBC) [Ratio] 14.4 % Normal 11.5-15.0 [facility] Comment on above: Performed By: #### C BCA, CMP, 08617-6, THYR #### [facility] ([id number]) [address] [place] [address] 47245 #### 68162-6, 2088-06 #### [facility] ([id number]) [address] [facility], [address] [place] [address] Hematocrit (Bld) [Volume fraction] 36.8 % Normal 35-47 [facility] Comment on above: Performed By: #### C BCA, CMP, 22123-2, THYR #### [facility] ([id number]) [address] [place] [address] 70032 #### 25906-2, 2088-06 #### [facility] ([id number]) [address], [address] [place] [address] Hemoglobin (Bld) [Mass/Vol] 12.5 g/dL Normal 11.7-15.5 [facility] Comment on above: Performed By: #### C BCA, CMP, 21008-8, THYR #### [facility] ([id number]) [address] [place] [address] 10621 #### 99668-7, 2088-06 #### [facility] ([id number]) [address], [address] [place] [address] Lymphocytes (Bld) [#/Vol] 2.1 10*3/uL Normal 1.0-3.5 [facility] Comment on above: Performed By: #### C BCA, CMP, 28231-8, THYR #### [facility] ([id number]) [address] [place] [address] 01064 #### 34778-1, 2088-06 #### [facility] ([id number]) [address], [address] [place] [address] Lymphocytes/100 WBC (Bld) 20.8 % Normal [facility] Comment on above: Performed By: #### C BCA, CMP, 16332-7, THYR #### [facility] ([id number]) [address] [place] [address] 84450 #### 82505-8, 2088-06 #### [facility] ([id number]) [address], [address] [place] [address] MCH (RBC) [Entitic mass] 27.3 pg Normal 27-34 [facility] Comment on above: Performed By: #### C BCA, CMP, 24563-1, THYR #### [facility] ([id number]) [address] [place] [address] 10135 #### 90561-5, 2088-06 #### [facility] ([id number]) [address], [address] [place] [address] MCHC (RBC) [Mass/Vol] 34.0 g/dL Normal 32-36 [facility] Comment on above: Performed By: #### C BCA, CMP, 23908-2, THYR #### [facility] ([id number]) [address] [place] [address] 27508 #### 58994-6, 2088-06 #### [facility] ([id number]) [address], [address] [place] [address] MCV (RBC) [Entitic vol] 80 fL Normal 80-100 [facility] Comment on above: Performed By: #### C BCA, CMP, 28199-8, THYR #### [facility] ([id number]) [address] [place] [address] 22311 #### 38795-7, 2088-06 #### [facility] ([id number]) [address] [place] [address] Monocytes (Bld) [#/Vol] 0.9 10*3/uL Normal 0-0.9 [facility] Comment on above: Performed By: #### C BCA, CMP, 97247-6, THYR #### [facility] ([id number]) [address] [place] [address] 76609 #### 48185-9, 2088-06 #### [facility] ([id number]) [address], [address] [place] [address] Monocytes/100 WBC (Bld) 8.8 % Normal [facility] Comment on above: Performed By: #### C BCA, CMP, 20225-5, THYR #### [facility] ([id number]) [address] [place] [address] 57235 #### 06200-1, 2088-06 #### [facility] ([id number]) [address], [address] [place] [address] Neutrophils/100 WBC (Bld) 66.9 % Normal [facility] Comment on above: Performed By: #### C BCA, CMP, 44302-5, THYR #### [facility] ([id number]) [address] [place] [address] 04909 #### 96385-1, 2088-06 #### [facility] ([id number]) [address], [address] [place] [address] Platelet mean volume (Bld) [Entitic vol] 8.5 fL Normal 7-12 [facility] Comment on above: Performed By: #### C BCA, CMP, 84781-2, THYR #### [facility] ([id number]) [address] [place] [address] 07964 #### 15117-4, 2088-06 #### [facility] ([id number]) [address] [facility], [address] [place] [address] Platelets (Bld) [#/Vol] 248 10*3/uL Normal 150-450 [facility] Comment on above: Performed By: #### C BCA, CMP, 37047-6, THYR #### [facility] ([id number]) [address] [place] [address] 92260 #### 60684-7, 2088-06 #### [facility] ([id number]) [address] [facility], [facility] [address] [place] [address] RBC COUNT 4.58 X10E12/L Normal 3.80-5.20 [facility] Comment on above: Performed By: #### C BCA, CMP, 35699-0, THYR #### [facility] ([id number]) [address] [place] [address] 55622 #### 56664-6, 2088-06 #### [facility] ([id number]) [address] [facility], [address] [place] [address] WBC (Bld) [#/Vol] 9.9 10*3/uL Normal 4.0-11.0 [facility] Comment on above: Performed By: #### C BCA, CMP, 47048-6, THYR #### [facility] ([id number]) [address] [place] [address] 06797 #### 89858-6, 2088-06 #### [facility] ([id number]) [address] [facility], [address] [place] [address] COMPREHENSIVE METABOLIC PANE Ace 07-25-2023 Albumin [Mass/Vol] 3.7 g/dL Normal 3.2-5.3 [facility] Comment on above: Performed By: #### C BCA, CMP, 29614-7, THYR #### [facility] ([id number]) [address] [place] [address] 50473 #### 39626-6, 2088-06 #### [facility] ([id number]) [address] [facility], [address] [place] [address] ALP [Catalytic activity/Vol] 119 U/L Normal 39-130 [facility] Comment on above: Performed By: #### C BCA, CMP, 93006-8, THYR #### [facility] ([id number]) [address] [place] [address] 10479 #### 46674-5, 2088-06 #### [facility] ([id number]) [address] [facility], [address] [place] [address] ALT [Catalytic activity/Vol] 14 U/L Normal 0-31 [facility] Comment on above: Performed By: #### C BCA, CMP, 92464-3, THYR #### [facility] ([id number]) [address] [place] [address] 28345 #### 95344-3, 2088-06 #### [facility] ([id number]) [address] [facility], [address] [place] [address] Anion gap [Moles/Vol] 13 mmol/L Normal 5-15 [facility] Comment on above: Performed By: #### C BCA, CMP, 00591-5, THYR #### [facility] ([id number]) [address] [place] [address] #### 49776-0, 2089-1 #### [facility] ([id number]) [address], [address] [place] [address] AST [Catalytic activity/Vol] 20 U/L Normal 0-41 [facility] Comment on above: Performed By: #### C BCA, CMP, 05123-3, THYR #### [facility] ([id number]) [address] [place] [address]00 #### 71030-2, 2088-06 #### [facility] ([id number]) [address], [address] [place] [address] Bilirubin [Mass/Vol] 0.7 mg/dL Normal 0.3-1.2 [facility] Comment on above: Performed By: #### C BCA, CMP, 11524-6, THYR #### [facility] ([id number]) [address] [place] [address]223 #### 48189-8, 2088-06 #### [facility] ([id number]) [address], [address] [place] [address] Calcium [Mass/Vol] 9.1 mg/dL Normal 8.5-10.5 [facility] Comment on above: Performed By: #### C BCA, CMP, 78080-7, THYR #### [facility] ([id number]) [address] [place] [address]195 #### 01199-8, 2088-06 #### [facility] ([id number]) [address], [address] [place] [address] Chloride [Moles/Vol] 97 mmol/L Low 98-109 [facility] Comment on above: Performed By: #### C BCA, CMP, 85685-1, THYR #### [facility] ([id number]) [address] [place] [address]70 #### 34809-9, 2088-06 #### [facility] ([id number]) [address], [address] [place] [address] CO2 [Moles/Vol] 21 mmol/L Low 22-32 [facility] Comment on above: Performed By: #### C MARQUES, CMP, 44888-5, THYR #### [facility] ([id number]) [address] [place] [address] 95841 #### 47934-0, 2088-06 #### [facility] ([id number]) [address], [address] [place] [address] Creatinine [Mass/Vol] 2.04 mg/dL High 0.40-1.00 [facility] Comment on above: Result Comment: METH OD TRACEABLE TO IDMS STANDARD Performed By: #### C MARQUES, CMP, 64655-3, THYR #### [facility] ([id number]) [address] [place] [address]193 #### 91663-5, 2088-06 #### [facility] ([id number]) [address], [address] [place] [address] GFR/1.73 sq M.predicted among non-blacks MDRD (S/P/Bld) [Vol rate/Area] 27 mL/min/{1.73_m2} Low >59 [facility] Comment on above: Result Comment: Reported eGFR is based on the CKD-EPI 1 equation that does not use a race coefficient. Performed By: #### C BCA, CMP, 80966-4, THYR #### [facility] ([id number]) [address] [place] [address] 45581 #### 09047-0, 2088-06 #### [facility] ([id number]) [address], [address] [place] [address] Glucose [Mass/Vol] 187 mg/dL High 65-99 [facility] Comment on above: Performed By: #### C BCA, CMP, 99722-7, THYR #### [facility] ([id number]) [address] [place] [address] 39770 #### 19511-1, 2088-06 #### [facility] ([id number]) [address], [address] [place] [address] Potassium [Moles/Vol] 3.5 mmol/L Normal 3.5-5.0 [facility] Comment on above: Performed By: #### C BCA, CMP, 59743-2, THYR #### [facility] ([id number]) [address] [place] [address] 99036 #### 41121-0, 2088-06 #### [facility] ([id number]) [address], [address] [place] [address] Protein [Mass/Vol] 7.9 g/dL Normal 6.0-8.0 [facility] Comment on above: Performed By: #### C BCA, CMP, 59536-1, THYR #### [facility] ([id number]) [address] [place] [address] 78857 #### 19527-6, 2088-06 #### [facility] ([id number]) [address], [address] [place] [address] Sodium [Moles/Vol] 131 mmol/L Low 134-146 [facility] Comment on above: Performed By: #### C BCA, CMP, 05435-5, THYR #### [facility] ([id number]) [address] [place] [address] 10111 #### 53836-0, 2088-06 #### [facility] ([id number]) [address], [address] [place] [address] Urea nitrogen [Mass/Vol] 34 mg/dL High 5-23 [facility] Comment on above: Performed By: #### C MARQUES, NIKKY, 00384-5, THYR #### [facility] ([id number]) [address] [place] [address] 57608 #### 73099-7, 2088-06 #### [facility] ([id number]) [address], [address] [place] [address] Glucose Glucometer (BldC) [M ass/Vol]on 07-25-2023 Glucose [Mass/Vol] 245 mg/dL High 65-99 [facility] Glucose [Mass/Vol] 183 mg/dL High 65-99 [facility] Glucose [Mass/Vol] 207 mg/dL High 65-99 [facility] MAGNESIUMon 07-25-2023 Magnesium [Mass/Vol] 2.3 mg/dL Normal 1.8-2.6 [facility] Comment on above: Performed By: #### C MARQUES, NIKKY, 36798-6, THYR #### [facility] ([id number]) [address] [place] [address] 29135 #### 28686-0, 2088-06 #### [facility] ([id number]) [address], [address] [place] [address] POTASSIUMon 07-25-2023 Potassium [Moles/Vol] 4.1 mmol/L Normal 3.5-5.0 [facility] Comment on above: Performed By: #### C MARQUES, CMP, 72425-9, THYR #### [facility] ([id number]) [address] [place] [address] 23147 #### 26126-0, 2088-06 #### [facility] ([id number]) [address], [address] [place] [address] CBC AND AUTO DIFFon 07-24-19 24 ABSOLUTE BASOPHIL 0.1 X10E9/L Normal 0.0-0.2 [facility] Comment on above: Performed By: #### C BCA, CMP, 08433-3, THYR #### [facility] ([id number]) [address] [place] [address] 67290 #### 71991-3, 2088-06 #### [facility] ([id number]) [address] [facility], [address] [place] [address] ABSOLUTE NEUTROPHIL 5.4 X10E9/L Normal 1.5-6.6 [facility] Comment on above: Performed By: #### C BCA, CMP, 28669-9, THYR #### [facility] ([id number]) [address] [place] [address] 18047 #### 01712-0, 2088-06 #### [facility] ([id number]) [address] [facility], [address] [place] [address] Basophils/100 WBC (Bld) 0.7 % Normal [facility] Comment on above: Performed By: #### C BCA, CMP, 76795-0, THYR #### [facility] ([id number]) [address] [place] [address] 79545 #### 46209-3, 2088-06 #### [facility] ([id number]) [address] [facility], [address] [place] [address] Eosinophils (Bld) [#/Vol] 0.2 10*3/uL Normal 0.0-0.4 [facility] Comment on above: Performed By: #### C BCA, CMP, 37546-8, THYR #### [facility] ([id number]) [address] [place] [address] 11796 #### 34733-9, 2088-06 #### [facility] ([id number]) [address] [facility], [address] [place] [address] Eosinophils/100 WBC (Bld) 2.7 % Normal [facility] Comment on above: Performed By: #### C NIKKY MOHAN, 95298-3, THYR #### [facility] ([id number]) [address] [place] [address] 72307 #### 58679-0, 2088-06 #### [facility] ([id number]) [address], [address] [place] [address] Erythrocyte distribution width (RBC) [Ratio] 14.3 % Normal 11.5-15.0 [facility] Comment on above: Performed By: #### C MARQUES CMP, 76644-3, THYR #### [facility] ([id number]) [address] [place] [address] 68353 #### 76109-8, 2088-06 #### [facility] ([id number]) [address], [address] [place] [address] Hematocrit (Bld) [Volume fraction] 35.1 % Normal 35-47 [facility] Comment on above: Performed By: #### Teresa MOHAN CMP, 80418-3, THYR #### [facility] ([id number]) [address] [place] [address] 46568 #### 02491-5, 2088-06 #### [facility] ([id number]) [address], [address] [place] [address] Hemoglobin (Bld) [Mass/Vol] 12.0 g/dL Normal 11.7-15.5 [facility] Comment on above: Performed By: #### Teresa MOHAN CMP, 60432-0, THYR #### [facility] ([id number]) [address] [place] [address] 85351 #### 59974-1, 2088-06 #### [facility] ([id number]) [address], [address] [place] [address] Lymphocytes (Bld) [#/Vol] 2.3 10*3/uL Normal 1.0-3.5 [facility] Comment on above: Performed By: #### C BCA, CMP, 69471-9, THYR #### [facility] ([id number]) [address] [place] [address] 90986 #### 27831-2, 2088-06 #### [facility] ([id number]) [address] [facility], [address] [place] [address] Lymphocytes/100 WBC (Bld) 26.1 % Normal [facility] Comment on above: Performed By: #### C BCA, CMP, 83398-0, THYR #### [facility] ([id number]) [address] [place] [address] 63149 #### 25654-9, 2088-06 #### [facility] ([id number]) [address] [facility], [address] [place] [address] MCH (RBC) [Entitic mass] 27.2 pg Normal 27-34 [facility] Comment on above: Performed By: #### C BCA, CMP, 16267-2, THYR #### [facility] ([id number]) [address] [place] [address] 51621 #### 23993-7, 2088-06 #### [facility] ([id number]) [address] [facility], [address] [place] [address] MCHC (RBC) [Mass/Vol] 34.2 g/dL Normal 32-36 [facility] Comment on above: Performed By: #### C BCA, CMP, 79663-7, THYR #### [facility] ([id number]) [address] [place] [address] 65040 #### 71141-0, 2088-06 #### [facility] ([id number]) [address], [address] [place] [address] MCV (RBC) [Entitic vol] 80 fL Normal 80-100 [facility] Comment on above: Performed By: #### C BCA, CMP, 12060-8, THYR #### [facility] ([id number]) [address] [place] [address] 76514 #### 42987-7, 2088-06 #### [facility] ([id number]) [address] [place] [address] Monocytes (Bld) [#/Vol] 0.9 10*3/uL Normal 0-0.9 [facility] Comment on above: Performed By: #### C BCA, CMP, 85781-2, THYR #### [facility] ([id number]) [address] [place] [address] 00441 #### 37026-5, 2088-06 #### [facility] ([id number]) [address] [facility], [address] [place] [address] Monocytes/100 WBC (Bld) 9.8 % Normal [facility] Comment on above: Performed By: #### C BCA, CMP, 44928-4, THYR #### [facility] ([id number]) [address] [place] [address] 88062 #### 96064-2, 2088-06 #### [facility] ([id number]) [address] [place] [address] Neutrophils/100 WBC (Bld) 60.7 % Normal [facility] Comment on above: Performed By: #### C BCA, CMP, 22457-5, THYR #### [facility] ([id number]) [address] [place] [address] 55395 #### 33801-9, 2088-06 #### [facility] ([id number]) [address] [facility], [address] [place] [address] Platelet mean volume (Bld) [Entitic vol] 8.7 fL Normal 7-12 [facility] Comment on above: Performed By: #### C BCA, CMP, 22025-8, THYR #### [facility] ([id number]) [address] [place] [address] 88250 #### 74123-7, 2088-06 #### [facility] ([id number]) [facility] [facility], [address] [place] [address] Platelets (Bld) [#/Vol] 288 10*3/uL Normal 150-450 [facility] Comment on above: Performed By: #### C BCA, CMP, 82136-6, THYR #### [facility] ([id number]) [address] [place] [address] 65702 #### 97413-0, 2088-06 #### [facility] ([id number]) [address] [place] [address], [address] [place] [address] RBC COUNT 4.41 X10E12/L Normal 3.80-5.20 [facility] Comment on above: Performed By: #### C BCA, CMP, 10945-6, THYR #### [facility] ([id number]) [address] [place] [address] 42365 #### 21093-1, 2088-06 #### [facility] ([id number]) [address] [place] [address], [address] [place] [address] WBC (Bld) [#/Vol] 8.8 10*3/uL Normal 4.0-11.0 [facility] Comment on above: Performed By: #### C BCA, CMP, 06107-3, THYR #### [facility] ([id number]) [address] [place] [address] 77219 #### 89768-3, 2088-06 #### [facility] ([id number]) [address], [address] [place] [address] COMPREHENSIVE METABOLIC PANE Ace 07-24-2023 Albumin [Mass/Vol] 3.6 g/dL Normal 3.2-5.3 [facility] Comment on above: Performed By: #### C BCA, CMP, 34062-5, THYR #### [facility] ([id number]) [address] [place] [address] 73632 #### 52040-9, 2088-06 #### [facility] ([id number]) [address] [facility], [address] [place] [address] ALP [Catalytic activity/Vol] 120 U/L Normal 39-130 [facility] Comment on above: Performed By: #### C BCA, CMP, 54208-7, THYR #### [facility] ([id number]) [address] [place] [address] 08117 #### 00896-0, 2088-06 #### [facility] ([id number]) [address] [facility], [address] [place] [address] ALT [Catalytic activity/Vol] 11 U/L Normal 0-31 [facility] Comment on above: Performed By: #### C BCA, CMP, 96772-8, THYR #### [facility] ([id number]) [address] [place] [address] 15057 #### 54537-6, 2088-06 #### [facility] ([id number]) [address] [facility], [address] [place] [address] Anion gap [Moles/Vol] 11 mmol/L Normal 5-15 [facility] Comment on above: Performed By: #### C BCA, CMP, 49367-9, THYR #### [facility] ([id number]) [address] [place] [address] 31568 #### 60629-2, 2088-06 #### [facility] ([id number]) [address], [address] [place] [address] AST [Catalytic activity/Vol] 15 U/L Normal 0-41 [facility] Comment on above: Performed By: #### C BCA, CMP, 69857-2, THYR #### [facility] ([id number]) [address] [place] [address] 31221 #### 28684-7, 2088-06 #### [facility] ([id number]) [address] [facility], [address] [place] [address] Bilirubin [Mass/Vol] 0.5 mg/dL Normal 0.3-1.2 [facility] Comment on above: Performed By: #### C BCA, CMP, 94746-7, THYR #### [facility] ([id number]) [address] [place] [address] 41133 #### 76133-9, 2088-06 #### [facility] ([id number]) [address] [facility], [address] [place] [address] Calcium [Mass/Vol] 9.4 mg/dL Normal 8.5-10.5 [facility] Comment on above: Performed By: #### C BCA, CMP, 27395-5, THYR #### [facility] ([id number]) [address] [place] [address] 35854 #### 03810-1, 2088-06 #### [facility] ([id number]) [address], [address] [place] [address] Chloride [Moles/Vol] 101 mmol/L Normal 98-109 [facility] Comment on above: Performed By: #### C BCA, CMP, 93125-2, THYR #### [facility] ([id number]) [address] [place] [address] 14860 #### 53919-5, 2088-06 #### [facility] ([id number]) [address], [address] [place] [address] CO2 [Moles/Vol] 24 mmol/L Normal 22-32 [facility] Comment on above: Performed By: #### C BCA, CMP, 52128-1, THYR #### [facility] ([id number]) [address] [place] [address] 17065 #### 49947-5, 2088-06 #### [facility] ([id number]) [address], [address] [place] [address] Creatinine [Mass/Vol] 2.02 mg/dL High 0.40-1.00 [facility] Comment on above: Result Comment: METH OD TRACEABLE TO IDMS STANDARD Performed By: #### C BCA, CMP, 12703-6, THYR #### [facility] ([id number]) [address] [place] [address] 66437 #### 49912-6, 2088-06 #### [facility] ([id number]) [address], [address] [place] [address] GFR/1.73 sq M.predicted among non-blacks MDRD (S/P/Bld) [Vol rate/Area] 28 mL/min/{1.73_m2} Low >59 [facility] Comment on above: Result Comment: Reported eGFR is based on the CKD-EPI 2020 equation that does not use a race coefficient. Performed By: #### C BCA, CMP, 00596-6, THYR #### [facility] ([id number]) [address] [place] [address] 54038 #### 96652-3, 2088-06 #### [facility] ([id number]) [address], [address] [place] [address] Glucose [Mass/Vol] 68 mg/dL Normal 65-99 [facility] Comment on above: Performed By: #### C BCA, CMP, 84650-1, THYR #### [facility] ([id number]) [address] [place] [address] 50278 #### 83750-9, 2088-06 #### [facility] ([id number]) [address] [facility], [address] [place] [address] Potassium [Moles/Vol] 2.9 mmol/L Low 3.5-5.0 [facility] Comment on above: Performed By: #### C BCA, CMP, 14275-2, THYR #### [facility] ([id number]) [address] [place] [address] 23322 #### 14660-1, 2088-06 #### [facility] ([id number]) [address] [facility], [address] [place] [address] Protein [Mass/Vol] 7.9 g/dL Normal 6.0-8.0 [facility] Comment on above: Performed By: #### C BCA, CMP, 83511-7, THYR #### [facility] ([id number]) [address] [place] [address] 54251 #### 27353-0, 2088-06 #### [facility] ([id number]) [address] [facility], [address] [place] [address] Sodium [Moles/Vol] 136 mmol/L Normal 134-146 [facility] Comment on above: Performed By: #### C BCA, CMP, 18364-0, THYR #### [facility] ([id number]) [address] [place] [address] 41640 #### 91187-5, 2088-06 #### [facility] ([id number]) [address] [facility], [address] [place] [address] Urea nitrogen [Mass/Vol] 35 mg/dL High 5-23 [facility] Comment on above: Performed By: #### C NIKKY MOHAN, 10335-7, THYR #### [facility] ([id number]) [address] [place] [address] 78101 #### 59761-4, 2088-06 #### [facility] ([id number]) [address] [facility], [address] [place] [address] Glucose Glucometer (BldC) [M ass/Vol]on 07-24-2023 Glucose [Mass/Vol] 245 mg/dL High 65-99 [facility] Glucose [Mass/Vol] 204 mg/dL High 65-99 [facility] Glucose [Mass/Vol] 134 mg/dL High 65-99 [facility] MAGNESIUMon 07-24-2023 Magnesium [Mass/Vol] 2.6 mg/dL Normal 1.8-2.6 [facility] Comment on above: Performed By: #### C NIKKY MOHAN, 63786-3, THYR #### [facility] ([id number]) [address] [place] [address] 08730 #### 48063-9, 2088-06 #### [facility] ([id number]) [address] [facility], [address] [place] [address] Magnesium [Mass/Vol] 1.6 mg/dL Low 1.8-2.6 [facility] Comment on above: Performed By: #### C NKIKY MOHAN, 70710-0, THYR #### [facility] ([id number]) [address] [place] [address] 53864 #### 92011-9, 2088-06 #### [facility] ([id number]) [address] [place] [address] POTASSIUMon 07-24-2023 Potassium [Moles/Vol] 3.9 mmol/L Normal 3.5-5.0 [facility] Comment on above: Performed By: #### C BCA, CMP, 04550-2, THYR #### [facility] ([id number]) [address] [place] [address] 15109 #### 94433-9, 2088-06 #### [facility] ([id number]) [address] [place] [address] CBC AND AUTO DIFFon 07-23-19 ABSOLUTE BASOPHIL 0.1 X10E9/L Normal 0.0-0.2 [facility] Comment on above: Performed By: #### C BCA, CMP, 39962-9, THYR #### [facility] ([id number]) [address] [place] [address] 50596 #### 78535-8, 2088-06 #### [facility] ([id number]) [address] [facility], [address] [place] [address] ABSOLUTE NEUTROPHIL 7.1 X10E9/L High 1.5-6.6 [facility] Comment on above: Performed By: #### C BCA, CMP, 24761-8, THYR #### [facility] ([id number]) [address] [place] [address] 55030 #### 66839-3, 2088-06 #### [facility] ([id number]) [address] [place] [address] Basophils/100 WBC (Bld) 0.9 % Normal [facility] Comment on above: Performed By: #### C BCA, CMP, 54043-8, THYR #### [facility] ([id number]) [address] [place] [address] [place] [address] #### 34900-1, 2088-06 #### [facility] ([id number]) [address] [place] [address], [facility] [address] [place] [address] Eosinophils (Bld) [#/Vol] 0.3 10*3/uL Normal 0.0-0.4 [facility] Comment on above: Performed By: #### C BCA, CMP, 38367-4, THYR #### [facility] ([id number]) [address] [place] [address] 54452 #### 43755-4, 2088-06 #### [facility] ([id number]) [address] [place] [address], [address] [address] Eosinophils/100 WBC (Bld) 2.5 % Normal [facility] Comment on above: Performed By: #### C BCA, CMP, 79057-6, THYR #### [facility] ([id number]) [address] [place] [address] #### 36717-9, 2088-06 #### [facility] ([id number]) [address] [place] [address], [facility] [address] [place] [address] Erythrocyte distribution width (RBC) [Ratio] 14.7 % Normal 11.5-15.0 [facility] Comment on above: Performed By: #### C BCA, CMP, 40906-0, THYR #### [facility] ([id number]) [address] [place] [address] #### 48851-8, 2088-06 #### [facility] ([id number]) [address] [place] [address], [address] [place] [address] Hematocrit (Bld) [Volume fraction] 39.8 % Normal 35-47 [facility] Comment on above: Performed By: #### C BCA, CMP, 48627-3, THYR #### [facility] ([id number]) [address] [place] [address] #### 78966-7, 2088-06 #### [facility] ([id number]) [address], [address] [place] [address] Hemoglobin (Bld) [Mass/Vol] 13.6 g/dL Normal 11.7-15.5 [facility] Comment on above: Performed By: #### C BCA, CMP, 06245-2, THYR #### [facility] ([id number]) [address] [place] [address] #### 24088-4, 2088-06 #### [facility] ([id number]) [address], [address] [place] [address] Lymphocytes (Bld) [#/Vol] 2.4 10*3/uL Normal 1.0-3.5 [facility] Comment on above: Performed By: #### C BCA, CMP, 47582-9, THYR #### [facility] ([id number]) [address] [place] [address] #### 08999-6, 2088-06 #### [facility] ([id number]) [address], [address] [place] [address] Lymphocytes/100 WBC (Bld) 21.8 % Normal [facility] Comment on above: Performed By: #### C BCA, CMP, 92763-3, THYR #### [facility] ([id number]) [address] [place] [address] #### 67501-3, 2088-06 #### [facility] ([id number]) [address], [address] [place] [address] MCH (RBC) [Entitic mass] 27.5 pg Normal 27-34 [facility] Comment on above: Performed By: #### C BCA, CMP, 79906-0, THYR #### [facility] ([id number]) [address] [place] [address] #### 78597-6, 2088-06 #### [facility] ([id number]) [address], [address] [place] [address] MCHC (RBC) [Mass/Vol] 34.2 g/dL Normal 32-36 [facility] Comment on above: Performed By: #### C BCA, CMP, 88108-2, THYR #### ST [facility] ([id number]) [address] [place] [address] 29837 #### 31146-8, 2088-06 #### [facility] ([id number]) [address] [place] [address] MCV (RBC) [Entitic vol] 80 fL Normal 80-100 [facility] Comment on above: Performed By: #### C BCA, CMP, 48400-4, THYR #### [facility] ([id number]) [address] [place] [address] 01095 #### 01743-9, 2088-06 #### [facility] ([id number]) [address] [place] [address] Monocytes (Bld) [#/Vol] 1.0 10*3/uL High 0-0.9 [facility] Comment on above: Performed By: #### C BCA, CMP, 96669-3, THYR #### [facility] ([id number]) [address] [place] [address] 13669 #### 39521-5, 2088-06 #### [facility] ([id number]) [address] [place] [address] Monocytes/100 WBC (Bld) 8.8 % Normal [facility] Comment on above: Performed By: #### C BCA, CMP, 23742-9, THYR #### [facility] ([id number]) [address] [place] [address] 14887 #### 38816-4, 2088-06 #### [facility] ([id number]) [address], [address] [place] [address] Neutrophils/100 WBC (Bld) 66.0 % Normal [facility] Comment on above: Performed By: #### C BCA, CMP, 22618-8, THYR #### [facility] ([id number]) [address] [place] [address] 04215 #### 48225-6, 2088-06 #### [facility] ([id number]) [address], [address] [place] [address] Platelet mean volume (Bld) [Entitic vol] 8.1 fL Normal 7-12 [facility] Comment on above: Performed By: #### C BCA, CMP, 40208-4, THYR #### [facility] ([id number]) [address] [place] [address] 81905 #### 95764-3, 2088-06 #### [facility] ([id number]) [address], [address] [place] [address] Platelets (Bld) [#/Vol] 326 10*3/uL Normal 150-450 [facility] Comment on above: Performed By: #### C BCA, CMP, 21169-3, THYR #### [facility] ([id number]) [address] [place] [address] 47444 #### 12282-4, 2088-06 #### [facility] ([id number]) [address], [address] [place] [address] RBC COUNT 4.95 X10E12/L Normal 3.80-5.20 [facility] Comment on above: Performed By: #### C BCA, CMP, 98487-8, THYR #### [facility] ([id number]) [address] [place] [address] 12589 #### 00325-8, 2088-06 #### [facility] ([id number]) [address] [facility], [address] [place] [address] WBC (Bld) [#/Vol] 10.8 10*3/uL Normal 4.0-11.0 [facility] Comment on above: Performed By: #### C BCA, CMP, 55067-5, THYR #### [facility] ([id number]) [address] [place] [address] 30232 #### 62883-5, 2088-06 #### [facility] ([id number]) [address] [facility], [address] [place] [address] COMPREHENSIVE METABOLIC PANE Ace 07-23-2023 Albumin [Mass/Vol] 4.1 g/dL Normal 3.2-5.3 [facility] Comment on above: Performed By: #### C BCA, CMP, 16674-7, THYR #### [facility] ([id number]) [address] [place] [address] 31619 #### 89184-1, 2088-06 #### [facility] ([id number]) [address] [facility], [address] [place] [address] ALP [Catalytic activity/Vol] 133 U/L High 39-130 [facility] Comment on above: Performed By: #### C BCA, CMP, 77607-8, THYR #### [facility] ([id number]) [address] [place] [address] 54144 #### 81576-8, 2088-06 #### [facility] ([id number]) [address] [facility], [address] [place] [address] ALT [Catalytic activity/Vol] 12 U/L Normal 0-31 [facility] Comment on above: Performed By: #### C BCA, CMP, 05209-3, THYR #### [facility] ([id number]) [address] [place] [address] 01692 #### 64630-4, 2088-06 #### [facility] ([id number]) [address] [facility], [address] [place] [address] Anion gap [Moles/Vol] 13 mmol/L Normal 5-15 [facility] Comment on above: Performed By: #### C MARQUES CMP, 73217-0, THYR #### [facility] ([id number]) [address] [place] [address] 94223 #### 58765-5, 2088-06 #### [facility] ([id number]) [address] [facility], [address] [place] [address] AST [Catalytic activity/Vol] 18 U/L Normal 0-41 [facility] Comment on above: Performed By: #### C BCA, CMP, 65535-0, THYR #### [facility] ([id number]) [address] [place] [address] 41649 #### 07779-7, 2088-06 #### [facility] ([id number]) [address] [facility], [address] [place] [address] Bilirubin [Mass/Vol] 0.4 mg/dL Normal 0.3-1.2 [facility] Comment on above: Performed By: #### C BCA, CMP, 85795-1, THYR #### [facility] ([id number]) [address] [place] [address] 02846 #### 68912-3, 2088-06 #### [facility] ([id number]) [address] [facility], [address] [place] [address] Calcium [Mass/Vol] 9.6 mg/dL Normal 8.5-10.5 [facility] Comment on above: Performed By: #### C BCA, CMP, 32659-2, THYR #### [facility] ([id number]) [address] [place] [address] 83853 #### 04614-7, 2088-06 #### [facility] ([id number]) [address] [facility], [address] [place] [address] Chloride [Moles/Vol] 99 mmol/L Normal 98-109 [facility] Comment on above: Performed By: #### C BCA, CMP, 73533-7, THYR #### [facility] ([id number]) [address] [place] [address] 80237 #### 31185-3, 2088-06 #### [facility] ([id number]) [address] [facility], [address] [place] [address] CO2 [Moles/Vol] 23 mmol/L Normal 22-32 [facility] Comment on above: Performed By: #### C BCA, CMP, 15662-2, THYR #### [facility] ([id number]) [address] [place] [address] 37888 #### 50784-7, 2088-06 #### [facility] ([id number]) [address] [facility], [address] [place] [address] Creatinine [Mass/Vol] 2.14 mg/dL High 0.40-1.00 [facility] Comment on above: Result Comment: METH OD TRACEABLE TO IDMS STANDARD Performed By: #### C BCA, CMP, 14555-8, THYR #### [facility] ([id number]) [address] [place] [address] 74599 #### 51885-9, 2088-06 #### [facility] ([id number]) [address], [address] [place] [address] GFR/1.73 sq M.predicted among non-blacks MDRD (S/P/Bld) [Vol rate/Area] 26 mL/min/{1.73_m2} Low >59 [facility] Comment on above: Result Comment: Reported eGFR is based on the CKD-EPI 2020 equation that does not use a race coefficient. Performed By: #### C BCA, CMP, 52718-9, THYR #### [facility] ([id number]) [address] [place] [address] 58427 #### 19589-9, 2088-06 #### [facility] ([id number]) [address], [address] [place] [address] Glucose [Mass/Vol] 159 mg/dL High 65-99 [facility] Comment on above: Performed By: #### C BCA, CMP, 09119-4, THYR #### [facility] ([id number]) [address] [place] [address] 76412 #### 62506-9, 2088-06 #### [facility] ([id number]) [address] [place] [address] Potassium [Moles/Vol] 3.4 mmol/L Low 3.5-5.0 [facility] Comment on above: Performed By: #### C BCA, CMP, 90970-3, THYR #### [facility] ([id number]) [address] [place] [address] 23292 #### 88899-7, 2088-06 #### [facility] ([id number]) [address], [address] [place] [address] Protein [Mass/Vol] 9.4 g/dL High 6.0-8.0 [facility] Comment on above: Performed By: #### C BCA, CMP, 67520-7, THYR #### [facility] ([id number]) [address] [place] [address] 80484 #### 71142-3, 2088-06 #### [facility] ([id number]) [address] [facility], [address] [place] [address] Sodium [Moles/Vol] 135 mmol/L Normal 134-146 [facility] Comment on above: Performed By: #### C BCA, CMP, 39432-4, THYR #### [facility] ([id number]) [address] [place] [address] 52994 #### 90555-6, 2088-06 #### [facility] ([id number]) [address] [facility], [address] [place] [address] Urea nitrogen [Mass/Vol] 38 mg/dL High 5-23 [facility] Comment on above: Performed By: #### C BCA, CMP, 98419-6, THYR #### [facility] ([id number]) [address] [place] [address] 89149 #### 28113-8, 2088-06 #### [facility] ([id number]) [address] [facility], [address] [place] [address] CT BRAIN WO CONT STROKE ALER Ton [...] Dorsey MD on 07/23/2023 9:24 AM Normal [facility] CT CTA CAROTIDon 07-23-2023 CT CTA CAROTID [...] as low as reasonably achievable.. The [place] symptomatic carotid endarterectomy trial (NASCET) method for [...] Romero MD on 07/23/2023 9:36 AM Normal [facility] CT CTA HEADon 07-23-2023 CT CTA HEAD [...] Seals MD on 07/23/2023 9:36 AM Normal [facility] DIRECT LDLon 07-23-2023 Cholesterol in LDL [Mass/Vol] 190 mg/dL High <130 [facility] Comment on above: Result Comment: LDL <100 mg/dL - Desirable LDL 130-159 mg/dL - Borderline High Risk LDL >160 mg/dL - High Risk Performed By: #### C MARQUES, [facility], 26408-0, THYR #### [facility] ([id number]) [address] [place] [address], [place] [address] #### 70203-6, 2088-06 #### [facility] ([id number]) [address] [place] [address], [address] [place] [address] Glucose Glucometer (BldC) [M ass/Vol]on 07-23-2023 Glucose [Mass/Vol] 116 mg/dL High 65-99 [facility] Glucose [Mass/Vol] 155 mg/dL High 65-99 [facility] Glucose [Mass/Vol] 109 mg/dL High 65-99 [facility] Glucose [Mass/Vol] 155 mg/dL High 65-99 [facility] HGB A1C (GLYCO-HGB)on 2023 Glucose [Mass/Vol] 171 mg/dL Normal [facility] Comment on above: Performed By: #### C MARQUES, CMP, 18673-9, THYR #### [facility] ([id number]) [address] [place] [address] 74580 #### 75731-3, 2088-06 #### [facility] ([id number]) [address], [address] [place] [address] HbA1c (Bld) [Mass fraction] 7.6 % High 4.4-5.6 [facility] Comment on above: Result Comment: NOTE ADA Guidelines Result HgbA1c Normal : less than 5.7 % Prediabetes : 5.7 % to 6.4 % Diabetes : > 6.4 % Use with caution in patients with abnormal hemoglobin variants as the half-life of red blood cells and in vivo glycation rates are affected. Performed By: #### C MARQUES, CMP, 03600-6, THYR #### [facility] ([id number]) [address] [place] [address] 39256 #### 38999-5, 2088-06 #### [facility] ([id number]) [address], [address] [place] [address] Lipid 1996 panelon Cholesterol [Mass/Vol] 327 mg/dL High 150-200 [facility] Comment on above: Performed By: #### Teresa BCA, CMP, 61906-4, THYR #### [facility] ([id number]) [address] [place] [address] 46158 #### 85904-7, 2088-06 #### [facility] ([id number]) [address] [place] [address] Cholesterol in HDL [Mass/Vol] 36 mg/dL Low >39 [facility] Comment on above: Result Comment: HDL <40 mg/dL - High Risk HDL > or = 40mg/dL- Desirable HDL >60 mg/dL - Negative Risk Performed By: #### C MARQUES, CMP, 04165-0, THYR #### [facility] ([id number]) [address] [place] [address] 76827 #### 89273-8, 2088-06 #### [facility] ([id number]) [address] [place] [address], [address] [place] [address] Cholesterol in VLDL [Mass/Vol] 99 mg/dL High 0-30 [facility] Comment on above: Performed By: #### C MARQUES, CMP, 56474-1, THYR #### [facility] ([id number]) [address] [place] [address] 03550 #### 32636-3, 2088-06 #### [facility] ([id number]) [address] [facility], [address] [place] [address] CHOLESTEROL:HDL 9.1 High 1.0-5.0 [facility] Comment on above: Performed By: #### C MARQUES, CMP, 91391-5, THYR #### [facility] ([id number]) [address] [place] [address] 04542 #### 53868-0, 2088-06 #### [facility] ([id number]) [address] [facility], [address] [place] [address] LDL (CALC) RESULT NOT REPORTED DUE TO HIGH TRIGLYCERIDE Normal <130 [facility] Comment on above: Performed By: #### C BCA, CMP, 98053-7, THYR #### [facility] ([id number]) [address] [place] [address] [place] [address] #### 44769-5, 2088-06 #### [facility] ([id number]) [address] [facility], [address] [place] [address] Triglyceride [Mass/Vol] 494 mg/dL High 27-150 [facility] Comment on above: Performed By: #### C BCA, CMP, 42073-5, THYR #### [facility] ([id number]) [address] [facility], [place] [address] #### 58260-9, 2088-06 #### [facility] ([id number]) [address] [facility], [address] [place] [address] MR BRAIN WO CONTon MR BRAIN WO [...] Mccall MD on 07/23/2023 11:51 AM Normal [facility] THYROID PROFILEon 07-23-2023 Free T4 [Mass/Vol] 1.10 ng/dL Normal 0.61-1.60 [facility] Comment on above: Performed By: #### C BCA, CMP, 08919-6, THYR #### [facility] ([id number]) [address] [place] [address] 24211 #### 99887-0, 2088-06 #### [facility] ([id number]) [address] [place] [address], [address] [place] [address] TSH 2.88 uIU/mL Normal 0.49-4.67 [facility] Comment on above: Performed By: #### C MARQUES, CMP, 39505-8, THYR #### [facility] ([id number]) [address] [place] [address] 62484 #### 10776-4, 2088-06 #### [facility] ([id number]) [address] [place] [address], [address] [place] [address] TROPONIN Ion 07-23-2023 Troponin I.cardiac [Mass/Vol] 0.01 ng/mL Normal 0.00-0.04 [facility] Comment on above: Performed By: #### C BCA, CMP, 84357-2, THYR #### [facility] ([id number]) [address] [place] [address] 42994 #### 44007-7, 2088-06 #### [facility] ([id number]) [address] [place] [address], [address] [place] [address] Troponin I.cardiac [Mass/Vol] 0.03 ng/mL Normal 0.00-0.04 [facility] Comment on above: Performed By: #### C BCA, CMP, 55908-0, THYR #### [facility] ([id number]) [address] [place] [address] 76489 #### 89092-4, 2088-06 #### [facility] ([id number]) [address] [facility], [address] [place] [address] A1C HEMOGLOBINon 05-06-2023 HbA1c (Bld) [Mass fraction] 6.8 % [employer] Other Glucose - FINGER STICKon Glucose [Mass/Vol] 177 mg/dL [employer] Other HbA1c (Bld) [Mass fraction]o n 05-06-2023 A1C HEMOGLOBIN [employer] Other A1C HEMOGLOBINon 10-15-2021 HbA1c (Bld) [Mass fraction] 8 % [employer] Other Glucose - FINGER STICKon Glucose [Mass/Vol] 290 mg/dL [employer] Other HbA1c (Bld) [Mass fraction]o n 10-15-2021 A1C HEMOGLOBIN [employer] Other A1C HEMOGLOBINon 07-17-2021 HbA1c (Bld) [Mass fraction] 7.2 % [employer] Other Glucose - FINGER STICKon Glucose [Mass/Vol] 194 mg/dL [employer] Other HbA1c (Bld) [Mass fraction]o n 07-17-2021 A1C HEMOGLOBIN [employer] Other Creatinine W/GFR Point of Ca reon 09-07-2019 Creatinine [Mass/Vol] 1.95 mg/dL High 0.51 - 1.19 mg/dL [facility] [place] GFR Non- 27 mL/min Low >60 [facility] [place] GFR/1.73 sq M predicted among non-blacks MDRD (S/P/Bld) [Vol rate/Area] 32 mL/min/{1.73_m2} Low >60 [facility], [place] GFR/1.73 sq M predicted among non-blacks MDRD (S/P/Bld) [Vol rate/Area] [place], [place] Comment on above: Average GFR for 50-5 9 years old: 93 mL/min/1.73sq m Chronic Kidney Disease: <60 mL/min/1.73sq m Kidney failure: <15 mL/min/1.73sq m eGFR calculated using average adult body mass. Additional eGFR calculator available at: http://www.FlagTap.Totsy/multiple_crcl_2012.htm OPERATIVE REPORTon 0 OPERATIVE REPORT [address] [address] OPERATIVE REPORT PATIENT NAME: OLY HARRELL : 1960 MED REC NO: [id number] ROOM: ACCOUNT NO: [id number] ADMIT DATE: 09/07/2019 PROVIDER: Martir Bang DATE [...] good condition. 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- Counseled patient that she needs to [...] or sooner ifnew symptoms develop.Marla Juares MD [facility] PROGRESSon 10-04-2017 Protein mass conc HNO ID: [id number] thor: Marla Webb: (none)Author Type: PhysicianType: Progress NotesFiled: 10/04/2017 8:20 PMNote Text:Proliferative Diabetic Retinopathy, Both Eyes:- Unable to follow-up due 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- Counseled patient that she needs to [...] or sooner ifnew symptoms develop.Marla Juares MD [facility] PROGRESSon 08-30-2017 Protein mass conc HNO ID: [id number] thor: Marla Webb: (none)Author Type: PhysicianType: Progress NotesFiled: 08/30/2017 1:01 PMNote Text:Proliferative Diabetic Retinopathy, Both Eyes:- Unable to follow-up due 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- Counseled patient that she needs to [...] or sooner ifnew symptoms develop.Marla Juares MD [facility] HOSPon 04-02-2017 HOSP Office Visit OPHT (OPHTLN) ----OLY HARRELL ([id number]) 1960 FDate Time Provider Ngmanemnxe76/6/17 12:00 PM ALAYNA GUTIERREZ During your visit [...] of its relevantcomponents.Samantha Mancusoing Provider: ALAYNA GUTIERREZ [[id number]]Allergies As of Date: 04/02/2017 Noted Allergy ReactionDEMEROL (MEPERIDINE (PF)) 01/30/2014 10 - AnaphylaxisMORPHINE 01/30/2014 10 - AnaphylaxisDate Reviewed: 01/01/2017Reviewed by: Inge Munoz (Tech) - Fully AssessedReason for Visit: Post-Op Visit [1236] Cmt: s/p lid repair 12/23/16Primary Visit Diagnosis:Ptosis of both eyelids [H02.403]Order(s):IOP MEASUREMENT [[id number]] Order #: [id number]: 1Prescriptions as of 04/02/2017 Sig: NEOMYCIN 3.5 [...] by mouth. Disc: Discontinued by PatientEncounter Number: [id number] Status:Closed by ALAYNA GUTIERREZ MD on 04/02/17 [facility] PROGRESSon 04-01-2017 Protein mass conc HNO ID: [id number] thor: Alayna GutierrezSer: (none)Author Type: PhysicianType: Progress [...] with all of its relevantcomponents.Alayna Gutierrez MD [facility] ANES Jaylen 12-23-2016 ANES POST HNO ID: [id number] thor: Harjeet PeñalozaService: AnesthesiologyAuthor Type: PhysicianType: Anesthesia [...] 23, 2016 : 2:03 PM PAGER/CONTACT #: [facility] ANES PREOPon 12-23-2016 ANES PREOP HNO ID: [id number] thor: [place] Corteservice: (none)Author Type: PhysicianType: Anesthesia PreOpFiled: 12/23/2016 9:14 AMNote Text:REGIONAL ANESTHESIOLOGY PREOPERATIVE ASSESSMENTPATIENT NAME: Oly HarrellMRN: [id number]: 1960Surgeon(s):Alayna HwangProcedure(s) (LRB):REPAIR BLEPHAROPTOSIS; (TARSO) LEVATOR RESECTION OR ADVANCEMENT, EXTERNALAPPROACH (Bilateral)Estimated body mass index is 44.81 kg/(m2) as calculated from thefollowing: Height as of 12/02/16: 157.5 cm (5' 2 ). Weight as of this encounter: 111.1 kg (245 lb).Most recent hematocrit and potassium results:Hematocrit 35.7 12/02/2016Potassium 4.0 12/02/2016Vitals: 12/23/571384UY: 154/91Pulse: 102Resp: 18Temp: 36.3 ?C (97.3 ?F)TempSrc: [...] LEFT EYENo date: COLONOSCOP W/ OR W/O [facility] SPEC Comment: ColonoscopyNo date: EGD W/O [...] MDDATE: December 23, 2016TIME: 9:14 AM Normal [facility] OPERATIVE NOon 12-23-2016 OPERATIVE NO HNO ID: [id number] thor: Alayna GutierrezService: OphthalmologyAuthor Type: PhysicianType: Operative ReportFiled: 12/23/2016 10:37 AMNote Text: OPERATIVE/PROCEDURE REPORTLOG ID: [id number]/Procedure Date: 12/23/2016Incision/Procedure Start Time: 9:50 AMIncision Close/Procedure End Time: 10:35 AMSurgeon(s)/Proceduralist(s ) and Inside Sales Manager(s):Surgeon(s) and Role: * Alayna Gutierrez - [...] Shay: December 23, 2016 : PAGER/CONTACT #: [facility] PT EDon 12-23-2016 PT ED HNO ID: [id number] thor: Patti (Rn) MELANIE Krishnanervice: NursingAuthor Type: Registered NurseType: Patient EducationFiled: 12/23/2016 11:09 AMNote Text:[place] [facility] PATIENT EDUCATION NOTEREADINESS TO LEARNCOGNITIVE [...] RN: NoElectronically Signed By Patti Krishnan RN [facility] Vital Signs Date Time Vital Sign Value Performing Clinician Facility 09-30-2023 14:30-0400 Body height 152.4 cm [place] [facility] 09-30-2023 14:30-0400 Body mass index (BMI) [Ratio] 44.5 kg/m2 [facility] 09-30-2023 14:30-0400 Body weight 103.41 kg [facility] 09-30-2023 14:30-0400 Diastolic blood pressure 104 mm[Hg] [facility] 09-30-2023 14:30-0400 Heart rate 84 /min [facility] 09-30-2023 14:30-0400 Respiratory rate 18 /min [facility] 09-30-2023 14:30-0400 SaO2% (BldA) [Mass fraction] 96 % [facility] 09-30-2023 14:30-0400 Systolic blood pressure 195 mm[Hg] [facility] 09-10-2023 12:35-0400 Body height 154.9 cm Yarelis Preciado MD Work Phone: [facility] 09-10-2023 12:35-0400 Body mass index (BMI) [Ratio] 42.89 kg/m2 Yarelis Preciado MD Work Phone: [facility] 09-10-2023 12:35-0400 Body weight 102.97 kg Yarelis Preciado MD Work Phone: [facility] 09-10-2023 12:35-0400 Diastolic blood pressure 72 mm[Hg] Yarelis Preciado MD Work Phone: [facility] 09-10-2023 12:35-0400 Heart rate 70 /min Yarelis Preciado MD Work Phone: [facility] 09-10-2023 12:35-0400 Systolic blood pressure 140 mm[Hg] Yarelis Preciado MD Work Phone: [facility] 07-30-2023 10:06-0500 Body height 157.5 cm Christophe Irwin MD Work Phone: [facility] 07-30-2023 10:06-0500 Body mass index (BMI) [Ratio] 40.42 kg/m2 Christophe Irwin MD Work Phone: [facility] 07-30-2023 10:06-0500 Body temperature 97.5 [degF] Christophe Irwin MD Work Phone: [facility] 07-30-2023 10:06-0500 Body weight 100.25 kg Christophe Irwin MD Work Phone: [facility] 07-30-2023 10:06-0500 Diastolic blood pressure 78 mm[Hg] Christophe Irwin MD Work Phone: [facility] 07-30-2023 10:06-0500 Heart rate 94 /min Christophe Irwin MD Work Phone: [facility] 07-30-2023 10:06-0500 SaO2% (BldA) [Mass fraction] 99 % Christophe Irwin MD Work Phone: [facility] 07-30-2023 10:06-0500 Systolic blood pressure 140 mm[Hg] Christophe Irwin MD Work Phone: [facility] 05-06-2023 13:45-0500 Body height 160.66 cm Nancy Stevens Other [employer] Other 05-06-2023 13:45-0500 Body mass index (BMI) [Ratio] 39.68 kg/m2 Tondra Mapus Other [employer] Other 05-06-2023 13:45-0500 Body weight 102.42 kg Tondra Mapus Other [employer] Other 05-06-2023 13:45-0500 Diastolic blood pressure 77 mm[Hg] Tondra Mapus Other [employer] Other 05-06-2023 13:45-0500 Respiratory rate 18 /min Tondra Mapus Other [employer] Other 05-06-2023 13:45-0500 SaO2% (BldA) [Mass fraction] 100 % Tondra Mapus Other [employer] Other 05-06-2023 13:45-0500 Systolic blood pressure 187 mm[Hg] Tondra Mapus Other [employer] Other 04-14-2022 15:00-0400 Body height 160.66 cm [employer] Other [employer] Other 04-14-2022 15:00-0400 Body mass index (BMI) [Ratio] 39.92 kg/m2 [employer] Other [employer] Other 04-14-2022 15:00-0400 Body temperature 97.3 [degF] [employer] Other [employer] Other 04-14-2022 15:00-0400 Body weight 103.06 kg [employer] Other [employer] Other 04-14-2022 15:00-0400 Diastolic blood pressure 110 mm[Hg] Fadumo Bairess Other [employer] Other 04-14-2022 15:00-0400 Respiratory rate 20 /min Fadumo Bairess Other [employer] Other 04-14-2022 15:00-0400 SaO2% (BldA) [Mass fraction] 98 % Fadumo Bairess Other [employer] Other 04-14-2022 15:00-0400 Systolic blood pressure 170 mm[Hg] [employer]ad[employer] Bai[employer] Other [employer] Other 10-15-2021 17:15-0400 Body height 160.66 cm Tondra Mapus Other [employer] Other 10-15-2021 17:15-0400 Body mass index (BMI) [Ratio] 40.59 kg/m2 Tondra Mapus Other [employer] Other 10-15-2021 17:15-0400 Body weight 104.78 kg Tondra Mapus Other [employer] Other 10-15-2021 17:15-0400 Diastolic blood pressure 84 mm[Hg] Tondra Mapus Other [employer] Other 10-15-2021 17:15-0400 Respiratory rate 20 /min Tondra Mapus Other [employer] Other 10-15-2021 17:15-0400 SaO2% (BldA) [Mass fraction] 95 % Tondra Mapus Other [employer] Other 10-15-2021 17:15-0400 Systolic blood pressure 147 mm[Hg] Tondra Mapus Other [employer] Other 07-17-2021 15:15-0500 Body height 160.66 cm Tondra Mapus Other [employer] Other 07-17-2021 15:15-0500 Body mass index (BMI) [Ratio] 41.12 kg/m2 Tondra Mapus Other [employer] Other 07-17-2021 15:15-0500 Body weight 106.14 kg Tondra Mapus Other [employer] Other 07-17-2021 15:15-0500 Diastolic blood pressure 84 mm[Hg] Tondra Mapus Other [employer] Other 07-17-2021 15:15-0500 Respiratory rate 20 /min Tondra Mapus Other [employer] Other 07-17-2021 15:15-0500 SaO2% (BldA) [Mass fraction] 97 % Tondra Mapus Other [employer] Other 07-17-2021 15:15-0500 Systolic blood pressure 135 mm[Hg] Tondra Mapus Other [employer] Other 09-07-2019 12:00-0400 Pulse Oximetry 97 % [facility] [place] 09-07-2019 11:45-0400 Body Temperature 97.5 [degF] [facility] [place] [facility] 11:45-0400 BP Diastolic 82 mm[Hg] Martir Darden [facility] , [place] 09-07-2019 11:45-0400 BP Systolic 150 mm[Hg] Martir Darden [facility] , [place] 09-07-2019 11:45-0400 Pulse (Heart Rate) 94 /min Martir Darden [facility] 09-07-2019 11:45-0400 Respiratory Rate 16 /min Martir Darden [facility] , [place] 09-07-2019 08:38-0400 BMI (Body Mass Index) 45.54 kg/m2 Martir Darden [facility] 09-07-2019 08:38-0400 Body weight 112.95 kg [facility] [place] 09-07-2019 08:38-0400 Height 157.5 cm [facility] [place] Encounters Encounter Date Encounter Type Care Provider Facility Start: 12-01-2023 End: 12-01-2023 ambulatory [facility] Start: 12-01-2023 End: 12-01-2023 Encounter for other preprocedural examination [facility] Start: 11-20-2023 End: 11-20-2023 Emergency department patient visit CHRISTOPHE IRWIN [facility] Start: 10-29-2023 End: 10-29-2023 ambulatory CHRISTOPHE IRWIN Not Available Start: 09-30-2023 Refill Anyi Delgado APRN-STATISTICIAN MATHEMATICAL Work Phone: [facility] Start: 09-30-2023 End: 09-30-2023 ambulatory [facility] Work Phone: Start: 09-30-2023 End: 09-30-2023 Patient encounter procedure [facility] Work Phone: Start: 09-29-2023 End: 09-29-2023 ambulatory CHRISTOPHE IRWIN Not Available Start: 09-17-2023 Telephone encounter Marcelaleslie Schafer CMA [facility] Comment on above: Request for Surgical Clearance Start: 09-13-2023 Telephone encounter Tonya Mustafa [facility] Comment on above: [employer] Start: 09-10-2023 End: 09-10-2023 ambulatory YARELIS PRECIADO [facility] Start: 09-10-2023 End: 09-10-2023 Office outpatient visit 25 minutes Yarelis Preciado MD Work Phone: [facility] Comment on above: Sequelae, post-strok e (Primary Dx); Seizure ([facility]); Hypomagnesemia; Colitis; Abnormal brain MRI; Poorly controlled diabetes mellitus ([facility]); CKD stage 3 secondary to diabetes ([facility]); Type 2 diabetes mellitus with complication, with long-term current use of insulin ([facility]); Gait instability; PBA (pseudobulbar affect) Start: 07-30-2023 Bamboo flowsheet Christophe Irwin MD Work Phone: [facility] Start: 07-30-2023 Bambo flowsheet Christophe Irwin MD Work Phone: [facility] Start: 07-30-2023 End: 07-30-2023 ambulatory CHRISTOPHE IRWIN Not Available Start: 07-30-2023 End: 07-30-2023 Preoperative state Christophe Irwin MD Work Phone: [facility] Start: 07-30-2023 End: 07-30-2023 Transitional care manage srvc 7 day discharge Christophe Irwin MD Work Phone: [facility] Comment on above: 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 (CMS/HCC) (Primary Dx); Preoperative clearance; Bunion of right foot; Essential hypertension, benign (CMS/HCC); Type 2 diabetes mellitus with microalbuminuria, with long-term current use of insulin ([facility]) Start: 07-26-2023 End: 07-27-2023 ambulatory ANYI DELGADO [facility] Start: 07-23-2023 End: 07-27-2023 ambulatory CHRISTOPHE IRWIN [facility] Start: 07-23-2023 End: 07-27-2023 ambulatory ANYI DELGADO [facility] Start: 07-23-2023 End: 07-27-2023 Emergency department patient visit ANDREW SHARIF [facility] Start: 07-23-2023 End: 07-26-2023 Evaluation and management of inpatient CHRISTOPHE IRWIN [facility] Start: 07-08-2023 End: 07-08-2023 ambulatory Tondra Mapus Other [employer] Other Start: 07-08-2023 Telephone encounter Tondra Mapus [facility] Start: 05-18-2023 End: 05-18-2023 ambulatory Tondra Mapus Other [employer] Other Start: 05-18-2023 Telephone encounter Tondra Mapus [facility] Start: 05-06-2023 (DM) Diabetes Tondra Mapus [facility] Start: 05-06-2023 End: 05-07-2023 ambulatory Tondra K Mapus [employer] Other Start: 04-29-2023 End: 04-29-2023 ambulatory Tondra Mapus Other [employer] Other Start: 04-29-2023 Telephone encounter Tondra Mapus [facility] Start: 02-24-2023 End: 02-24-2023 ambulatory Tondra Mapus Other [employer] Other Start: 02-24-2023 Telephone encounter Tondra Mapus [facility] Start: 11-09-2022 ambulatory MONET MARTEL Faci lity:[facility]1 Start: 11-05-2022 End: 11-05-2022 ambulatory Tondra Mapus Other [employer] Other Start: 11-05-2022 Telephone encounter Tondra Mapus [facility] Start: 10-30-2022 End: 10-30-2022 ambulatory Tondra Mapus Other [employer] Other Start: 10-30-2022 Telephone encounter Tondra Mapus [facility] Start: 10-12-2022 End: 10-13-[address] CHRISTOPHE IRWIN Facility:[facility] Start: 09-14-2022 End: 09-15-2022 ambulatory ISABELLA COSTAEN Facility:[facility] Start: 08-31-2022 End: 09-01-2022 ambulatory ISABELLA LETICIA Facility:[facility] Start: 08-27-2022 End: 08-27-2022 ambulatory Tondra Mapus Other [employer] Other Start: 08-27-2022 Telephone encounter Tondra Mapus [facility] Start: 08-18-2022 End: 08-19-[address] CHRISTOPHE IRWIN Facility:[facility] Start: 08-10-2022 End: 08-11-[address] CHRISTOPHE IRWIN Facility:[facility] Start: 07-20-2022 End: 07-21-[address] CHRISTOPHE IRWIN Facility:[facility] Start: 06-26-2022 End: 06-27-[address] CHRISTOPHE IRWIN Facility:[facility] Start: 06-18-2022 End: 06-18-2022 ambulatory Tondra Mapus Other [employer] Other Start: 06-18-2022 Telephone encounter Tondra Mapus [facility] Start: 06-15-2022 End: 06-15-2022 ambulatory Tondra Mapus Other [employer] Other Start: 06-15-2022 Telephone encounter Tondra Mapus [facility] Start: 06-09-2022 End: 06-10-2022 ambulatory ISABELLADONTAE COSTAEN Facility:[facility] Start: 05-11-2022 End: 05-11-2022 ambulatory UNKNOWN PROVIDER Facility:[facility] Start: 05-07-2022 End: 05-07-2022 ambulatory Tondra Mapus Other [employer] Other Start: 05-07-2022 Telephone encounter Tondra Mapus [facility] Start: 04-15-2022 End: 04-15-2022 ambulatory Aziz Bakhous Other [employer] Other Start: 04-15-2022 Telephone encounter Aziz Bakhous [facility] Start: 04-14-2022 End: 04-14-2022 ambulatory Aziz Bakhous Other [employer] Other Start: 04-14-2022 Office outpatient ne w 30 minutes Aziz Bakhous [facility] Start: 04-01-2022 End: 04-02-[address] AMANDA HOSKINS Facility:[facility] Start: 02-18-2022 End: 02-19-[address] AMANDA HOSKINS Facility:[facility] Start: 01-01-2022 End: 01-01-2022 ambulatory Tondra Mapus Other [employer] Other Start: 01-01-2022 Telephone encounter Tondra Mapus [facility] Start: 10-15-2021 (DM) Diabetes Tondra Mapus [facility] Start: 10-15-2021 End: 10-15-2021 ambulatory Tondra Mapus Other [employer] Other Start: 10-15-2021 Telephone encounter Tondra Mapus [facility] Start: 10-07-2021 End: 10-07-2021 ambulatory Tondra Mapus Other [employer] Other Start: 10-07-2021 Telephone encounter Tondra Mapus [facility] Start: 08-25-2021 End: 08-25-2021 ambulatory Tondra Mapus Other [employer] Other Start: 08-25-2021 Telephone encounter Nancy Stevens [facility] Start: 07-17-2021 (DM) Diabetes Tondra Rodney [facility] Start: 07-17-2021 End: 07-17-2021 ambulatory Tondra Rogerus Other [employer] Other Start: 09-07-2019 End: 09-07-2019 Patient encounter procedure MARTIR BANG [facility] Start: 09-07-2019 End: 09-07-2019 Subsequent hospital visit by physician Martir Bang Work Phone: [facility] Start: 01-21-2018 End: 01-24-2018 Patient encounter BRITTANY SPARKS [facility] Start: 11-01-2017 End: 11-02-2017 Patient encounter MARLA JUARES [facility] Start: 10-04-2017 End: 10-05-2017 Patient encounter MARLA JUARES [facility] Start: 08-30-2017 End: 09-02-2017 Patient encounter MARLA JUARES [facility] Start: 04-02-2017 End: 04-02-2017 Patient encounter ALAYNA GUTIERREZ [facility] Start: 12-23-2016 End: 12-23-2016 Ambulatory [facility] Procedures Date Procedure Procedure Detail Performing Clinician [...] Author Start: 09-22-2024 Tobacco Screening Tobacco Screening [facility] Start: 09-09-2024 Adult BMI Screening Adult BMI Screen ing [facility] Start: 09-09-2024 Depression Screening Depression Scre ening [facility] Start: 09-09-2024 Tobacco Screening Tobacco Screening [facility] Start: 05-13-2024 Urine screening for protein Urine Microalbumin [facility] Start: 02-25-2024 End: 02-25-2024 Patient encounter procedure 02/25/2024 1:00 PM EDT Office Visit [facility] [address] [place] [phone] Yarelis Preciado MD [address] [place] [address], [address] [place] [phone] [facility] Start: 10-29-2023 End: 10-29-2023 Patient encounter procedure 10/29/2023 10:15 AM EDT [facility] [address] [place] [place] [phone] Christophe Irwin MD [address] [place] [phone] [facility] Start: 07-30-2023 End: 07-30-2023 Patient encounter procedure 07/30/2023 10:15 AM EST Office Visit [facility] [address] [place] [phone] Christophe Irwin MD [address] [place] [phone] Arrived [facility] Comment on above: Arrived Start: 02-26-2023 Influenza vaccination Influenza Vacc ine (#1) [facility] Start: 01-29-2023 Hemoglobin A1c measurement Diabetes: Hemoglobin A1C [facility] Start: 12-19-2022 Adult BMI Follow Up Plan Adult BMI Follow Up Plan [facility] Start: 02-25-2022 DTaP,Tdap and Td Vaccines (2 - Td or Tdap) DTaP,Tdap and Td Vaccines (2 - Td or Tdap) [facility] Start: 03-17-2021 Screening for malign ant neoplasm of colon Colonoscopy [facility] Start: 05-10-2019 Screening for malign ant neoplasm of breast Mammogram [facility] Start: 05-06-2019 Administration of varicella zoster vaccine Zoster (Shingles) Vaccine (2 of 2) [facility] Start: 02-26-2019 Influenza vaccination Flu vaccine (# 1) [place], [place] Start: 1992 Screening for malign ant neoplasm of cervix [facility] Start: 10-27-1983 Screening for malign ant neoplasm of cervix Pap Smear [facility] Start: 1980 Diabetic foot examination Diabetic Foot Exam [facility] Start: 1972 Glaucoma screening Diabetes: R etinopathy Screening [facility] Start: 1962 Creatinine monitoring Creatinine mon itoring [place], [place] Start: 1962 Glaucoma screening Diabetic Op hthalmology Exam [facility] Start: 1962 Medicare Annual Well ness (AWV) Medicare Annual Wellness (AWV) [facility] Start: 1962 Potassium monitoring Potassium monit oring [place], [place] Start: 1962 Screening for malign ant neoplasm of colon [facility] Start: 1962 Tobacco Counseling Tobacco Counselin g [facility] End: 09-07-2019 BUN & Creatinine BUN & Creatinine Lab STAT One Time for 1 Occurrences starting 09/07/2019 until 09/07/2019 [place] Comment on above: One Time for 1 Occur rences starting 09/07/2019 until 09/07/2019 Comprehensive metabo lic 2000 panel - Serum or Plasma [facility] EKG 12 Lead EKG 12 Lead ECG STAT 09/07/2019 7:38 AM EDT [place] End: 09-07-2019 Electrolyte Panel Electrolyte Panel Lab STAT One Time for 1 Occurrences starting 09/07/2019 until 09/07/2019 [place] Comment on above: One Time for 1 Occur rences starting 09/07/2019 until 09/07/2019 Initiate Oxygen Ther apy Protocol Initiate Oxygen Therapy Protocol Respiratory Care Routine Daily until discontinued starting 09/07/2019 [place] Comment on above: Daily until disconti nued starting 09/07/2019 Phase I & II - meter ed glucose Phase I & II - metered glucose Point of Care Testing Routine As Needed until discontinued starting 09/07/2019 [place] Comment on above: As Needed until disc ontinued starting 09/07/2019 End: 09-07-2019 [facility]: One Time for 1 Occur rences starting 09/07/2019 until 09/07/2019 End: 09-07-2019 Pulse Oximetry Spot Check Pulse Oximetry Spot Check Respiratory Care Routine One Time for 1 Occurrences starting 09/07/2019 until 09/07/2019 [facility] on above: One Time for 1 Occur rences starting 09/07/2019 until 09/07/2019 End: 09-07-2019 Urine , POCT Urine , POCT Point of Care Testing Routine One Time for 1 Occurrences starting 09/07/2019 until 09/07/2019 [facility] Comment on above: One Time for 1 Occur rences starting 09/07/2019 until 09/07/2019 [facility] Immunizations Immunization Date Immunization Notes Care Provider Fa cility 11-19-2020 COVID-19, mRNA, LNP- S, PF, 100mcg/0.5mL Dose [facility] 05-15-2020 influenza, injectabl e, quadrivalent, preservative free [facility] 05-15-2020 influenza virus vacc ine, unspecified formulation Christophe Irwin MD Work Phone: [facility] 03-28-2019 pneumococcal conjuga te vaccine, 13 valent [facility] 03-11-2019 Seasonal, quadrivale nt, recombinant, injectable influenza vaccine, preservative free [facility] 03-11-2019 zoster vaccine recombinant [facility] 03-11-2019 zoster vaccine, unspecified formulation [facility] 04-01-2015 influenza, seasonal, injectable, preservative free [facility] 04-01-2015 pneumococcal polysaccharide vaccine, 23 valent [facility] 02-26-2012 tetanus toxoid, redu jose diphtheria toxoid, and acellular pertussis vaccine, adsorbed [facility] Payers Date Payer Category Payer Medicare UHC MEDICARE [employer] D[employer]PLETE xxxxxxxxx 2019-Present xxxxxxxxx [id number] 2019 Medicare [id number] 2018 Self-pay [id number] 2017 Medicare [id number] 2016 Medicaid [id number] 2014 Medicaid MEDICAID [facility] DEPT OF JOB xxxxxxxxxxxx 2014-Present [phone] [address] [place] [address] xxxxxxxxxxxx [id number] 1962 Unknown [id number] 2.16.840.1.401400.3.579.2.1 75 1962 Unknown [id number] 2.16.840.1.584664.3.579.2.7 32 1962 Unknown [id number] 2.16.840.1.686360.3.579.2.5 93 1962 Unknown [id number] 2.16.840.1.687920.3.579.2.5 93 1962 Unknown [id number] 2.16.840.1.449320.3.579.2.5 93 1962 Unknown [id number] 2.16.840.1.045307.3.579.2.5 93 1962 Unknown [id number] 2.16.840.1.128844.3.579.2.5 93 1962 Unknown [id number] 2.16.840.1.093721.3.579.2.5 93 1962 Unknown [id number] 2.16.840.1.354412.3.579.2.5 93 1962 Unknown [id number] 2.16.840.1.354489.3.579.2.5 93 1962 Unknown [id number] 2.16.840.1.989068.3.579.2.5 93 1962 Unknown [id number] 2.16.840.1.664126.3.579.2.5 93 1962 Unknown [id number] 2.16.840.1.982136.3.579.2.5 93 1962 Unknown [id number] 2.16.840.1.487432.3.579.2.1 259 1962 Unknown [id number] 2.16.840.1.552977.3.579.2.1 259 1962 Unknown [id number] 2.16.840.1.380716.3.579.2.1 259 1962 Unknown [id number] 2.16.840.1.587132.3.579.2.1 286 1962 Unknown [id number] 2.16.840.1.689180.3.579.2.1 286 1962 Unknown [id number] 2.16.840.1.918289.3.579.2.1 286 1962 Unknown [id number] 2.16.840.1.801781.3.579.2.1 286 1962 Unknown [id number] 2.16.840.1.603747.3.579.2.1 286 1962 Unknown [id number] 2.16.840.1.306431.3.579.2.1 286 1962 Unknown [id number] 2.16.840.1.257603.3.579.2.1 286 1962 Unknown [id number] 2.16.840.1.621908.3.579.2.1 286 1962 Unknown [id number] 2.16.840.1.343664.3.579.2.1 286 1959 Medicaid [id number] Medicare Medicare [id number] Unknown [id number] 2.16.840.1.461365.3.579.2.5 31 Social History Date Type Detail Facility Start: 09-07-2019 [facility] End: 09-05-1979 History of tobacco use Current sm[place] End: 09-05-1979 History of tobacco use Cigarette Sm[place] Start: 09-07-2019 End: 07-23-2023 Cigarettes smoked current (pack per day) - [facility] Start: 09-07-2019 End: 07-30-2023 Alcohol intake Lifetime non-drinker (finding) [place] Start: 09-05-2019 History SDOH Alcohol Frequency 1 [place] Start: 1960 Sex Assigned At Not on file M [place], [place] Start: 07-09-2023 End: 07-23-2023 Sex Assigned At [facility] Start: 12-14-2022 End: 09-30-2023 Tobacco smoking status [facility] Never smoked tobacco [facility] Start: 12-14-2022 End: 05-04-2023 Tobacco use and exposure Smokeless tobacco non-user [facility] Start: 1960 Sex Assigned At Female [facility] Start: 05-04-2023 [facility] Start: 09-10-2023 End: 09-23-2023 Alcohol intake [facility]-dr[facility] (finding) [facility] Has the electric, ga s, oil, or water company threatened to shut off services in your home in past 12Mo No [facility] [facility] Are you now , , , , never or living with a partner? [facility] [employer] [facility] How often to you hav e [...] - these days [OSQ] Not at all [facility] Medical Equipment Procedure Code Equipment Code Equipment Origin al Text Equipment Identifier Dates [id number], [id number] Star t: 01-16-2018 blood sugar diagnostic ([employer] [...] Date & Type Note Facility 12-01-2023 Note [place] [facility] Note Reason for cardiology [...] EDT by BE (more content not included)... [facility] 09-17-2023 Miscellaneous Notes Received a request for surgical clearance from [facility] in [place]. Office is requesting most recent office visit note and any medication instructions be faxed over to them @ [phone] by 09/23/23. Request and H&P scanned into the patient media for review. Please complete the patients last OV note and staff will fax it over along with any medication instructions you may have. Thanks. [facility] [place]. Office called in asking if we received the surgical clearance. Bead Forming Machine Operator informed them yes. Aleksandra would like to know when they would get the form back. In below encounter is was stated they needed the form back by 09 23 23 Please advise Aleksandra [phone] ext [phone] Physician's surgical clearance letter was printed and faxed to [phone], along with last office visit notes. Letter corrected to state stop aspirin 24 hours prior to procedure. Corrected letter scanned into chart. Fax confirmation received. RN left voicemail for field handyman, Aleksandra, to inform letter was faxed. Clinic number provided for call back with any questions. documented in this encounter [facility] 09-17-2023 Telephone encounter Note Received a request for surgical clearance from [facility] in [place]. Office is requesting most recent office visit note and any medication instructions be faxed over to them @ [phone] by 09/23/23. Request and H&P scanned into the patient media for review. Please complete the patients last OV note and staff will fax it over along with any medication instructions you may have. Thanks. [facility] 09-17-2023 Telephone encounter Note [facility] [place]. Office called in asking if we received the surgical clearance. Bead Forming Machine Operator informed them yes. Aleksandra would like to know when they would get the form back. In below encounter is was stated they needed the form back by 09 23 23 Please advise Aleksandra [phone] ext [phone] [facility] 09-17-2023 Telephone encounter Note Physician's surgical clearance letter was printed and faxed to [phone], along with last office visit notes. Letter corrected to state stop aspirin 24 hours prior to procedure. Corrected letter scanned into chart. Fax confirmation received. RN left voicemail for field handyman, Aleksandra, to inform letter was faxed. Clinic number provided for call back with any questions. [facility] 09-13-2023 Miscellaneous Notes Received call today 09/13/23 3:02 from Mounika [facility] who was calling to let Dr. Preciado's staff know that she is sending prior auth request for Nudexta to our clinic fax# which I provided to her. MEAGAN approved: [id number]. NUEDEXTA CAP 20-10MG is approved through 06/27/2024. documented in this encounter [facility] 09-13-2023 Telephone encounter Note Received call today 09/13/23 3:02 from Mounika [facility] who was calling to let Dr. Preciado's staff know that she is sending prior auth request for Nudexta to our clinic fax# which I provided to her. [facility] 09-13-2023 Telephone encounter Note MEAGAN approved: [id number]. NUEDEXTA CAP 20-10MG is approved through 06/27/2024. [facility] 09-10-2023 History of Presen t illness Narrative [facility] FOLLOW UP NOTE [...] and word finding difficulties. Hospital Course at [facility] 07/23/23-07/25/23: ... 62/F with a past [...] - of note patient was admitted at [facility] in October 2022 with altered mentation. Subsequently [...] History: Diagnosis Date Chronic kidney disease Diabetes ([facility]) Diabetes mellitus ([facility]) Disease of thyroid gland GERD (gastroesophageal reflux disease) Glaucoma Hyperlipemia Hypertension Incontinence Obesity Seizures ([facility]) Stroke ([facility]) Urinary urgency Past Surgical History Past Surgical History: Procedure Laterality Date APPENDECTOMY AUGMENTATION VERTEBRAL KYPHOPLASTY SPINE L1/ BIOPSY L1 N/A 12/02/2020 Performed by Bridger Vizcaino Jr., MD at [facility] BACK SURGERY BREAST BIOPSY Right 1990 BENIGN BREAST BIOPSY Right BENIGN BREAST BIOPSY BREAST SURGERY biopsy CATARACT EXTRACTION Bilateral CHOLECYSTECTOMY COLON SURGERY COLONOSCOPY N/A 03/17/2018 Performed by Santiago Cosby DO at [facility] CYSTOSCOPY EGD Left Lateral 10/17/2020 Performed by Santiago Cosby DO at [facility] EGD N/A 03/17/2018 Performed by Santiago Cosby DO at [facility] ESOPHAGOGASTRODUODENOSCOPY EYE SURGERY FOOT SURGERY Right [...] min Stress: No Stress Concern Present (07/23/2023) [facility] - Occupational Stress Questionnaire Feeling of Stress : Not at all Social Connections: Moderately Integrated (07/23/2023) Social Connection and Isolation Panel [NHANES] Frequency of Communication with Friends and Family: Three times a week Frequency of Social Gatherings with Friends and Family: Three times a week Attends [employer]: More than 4 times per year [...] complication, with long-term current use of insulin ([facility]) 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 ([facility]) Morbid obesity ([facility]) CKD stage 3 secondary to diabetes ([facility]) Hypomagnesemia Non-intractable vomiting Abdominal pain Coffee ground emesis Hypertension Hyperlipemia Glaucoma GERD (gastroesophageal reflux disease) Disease of thyroid gland Urinary urgency Closed fracture of first lumbar vertebra ([facility]) Stroke ([facility]) Intractable back pain Pathological fracture of lumbar vertebra due to secondary osteoporosis ([facility]) Age-related osteoporosis with current pathological fracture Vitamin D deficiency Altered mental status Seizures ([facility]) Seizure-like activity ([facility]) Mental status change resolved Recurrent episodes of unresponsiveness Seizure ([facility]) Hypokalemia Right thalamic infarction ([facility]) Poorly controlled diabetes mellitus ([facility]) Sequelae, post-stroke Gait instability Right foot drop Hyperlipidemia Asymptomatic bilateral carotid artery stenosis Delirium Colitis Sepsis ([facility]) Left-sided weakness History of stroke History of seizure Diarrhea Hypertensive encephalopathy Abnormal brain MRI RUE weakness CVA (cerebral vascular accident) ([facility]) Stroke ([facility]) Status post, lacunar stroke--> left periventricular ischemic [...] lability and mood disorders. Follow-up regularly with rail signal mechanic, sheet metal helper and other specialists. Follow Up: 3 months. Yarelis Preciado MD Vascular Neurologist [facility] St[facility] Stroke Clinic # [phone] Urgent Stroke Calls [phone](ACCESS) I have personally participated in the care of this patient. I have reviewed all pertinent clinical information, including history, physical exam, investigation results and plan. I spent 40 minutes caring for this patient, and more than 50% of that time was spent on counseling the patient/seamer panty hose/care team and coordinating care. Important Notice: This note was created with the assistance of a speech recognition program. While intending to generate a timely document that accurately reflects the content of the encounter, no guarantee can be provided that every grammatical or spelling mistake has been or will be identified or corrected. Thank you for your understanding. documented in this encounter [facility] 07-30-2023 History of Presen t [...] clearance from neurology. documented in this encounter [facility] 07-08-2023 Evaluation note Encounter Date Diagnosis Assessment Notes Jun, Diabetes mellitus with renal manifestations, uncontrolled (ICD-10 - E11.29) [employer] Other 11-09-2023 Evaluation note* Encounter Date Diagnosis Assessment Notes Treatment Notes Treatment Clinical Notes Apr, Insulin long-term use (ICD-10 - Z79.4) Apr, Type 2 diabetes mellitus with diabetic chronic kidney disease (ICD-10 - E11.22) 1. Controlled, Type 2 diabetes A1c 6.8%. 2. Blood glucose levels improved. According to [employer] 2 cgm download 04/16/23-04/29/23: Avg glucose 157. [...] addressed- pt. will have paperwork sent from [email or web address] for diabetic shoes. She has history of [...] S91.301A) keep f/u with Dr. Martel Wednesday05/10/23 [employer] Other 05-05-2023 Evaluation note* Encounter Date Diagnosis Assessment Notes Treatment Notes Treatment Clinical Notes October, Hyperlipidemia (ICD-10 - E78.5) [employer] Other 12-14-2022 NotePROCEDURE: XR FOOT RT MIN [...] Electronically authenticated by: AMANDA HOSKINS Date: 2022-06-10 09:23[facility]10-18-2022 Evaluation note* Encounter Date Diagnosis Assessment [...] current with her PCP for hyperlipidemia control [employer] Other 10-05-2022 NotePROCEDURE: XR ANKLE RT MIN [...] Electronically authenticated by: AMANDA HOSKINS Date: 2022-04-01 10:53[facility]08-25-2022 NotePROCEDURE: XR ANKLE LT MIN 3 [...] Electronically authenticated by: AMANDA HOSKINS Date: 2022-02-19 08:07[facility]08-25-2022 NotePROCEDURE: XR FOOT RT MIN 3 [...] Electronically authenticated by: AMANDA HOSKINS Date: 2022-02-19 08:04[facility]07-07-2022 Evaluation note* Encounter Date Diagnosis Assessment Notes Treatment Notes Treatment Clinical Notes Dec, Diabetes mellitus with renal manifestations, uncontrolled (ICD-10 - E11.29) [employer] Other 04-20-2022 Evaluation note* Encounter Date Diagnosis Assessment Notes Treatment Notes Treatment Clinical Notes Sep, Insulin long-term use (ICD-10 - Z79.4) Sep, Type 2 diabetes mellitus with diabetic chronic kidney disease (ICD-10 - E11.22) 1. Uncontrolled, Type 2 diabetes A1c 8%. 2. Blood glucose levels according to [employer] 2 cgm download 09/29/21-10/12/21: Avg glucose 188. [...] addressed- pt. will have paperwork sent from [email or web address] for diabetic shoes. She has history of [...] ml/min (ICD-10 - N18.3) Keep f/u with crop grain or livestock farm manager pt reported Dr. Donaldson no longer practicing- recommend referral to [facility] Sep, BMI 40.0-44.9, adult (ICD-10 - Z68.41) Deciphering the nutrition facts label material was published [employer] Other 01-20-2022 Evaluation note* Encounter Date Diagnosis [...] cgm today. Will send for cgm's to [place]. Discussed with pt adding sglt2. Reviewed common [...] addressed- pt. will have paperwork sent from [email or web address] for diabetic shoes. She has history of [...] ml/min (ICD-10 - N18.3) Keep f/u with crop grain or livestock farm manager. Jun, BMI 40.0-44.9, adult (ICD-10 - Z68.41) Deciphering the nutrition facts label material was published [employer] Other Chief complaint+Reason for visit Narrative* Chief Complaint penelope reader Reason for Visit Diabetes Dietary counseling and surveillance Hyperlipidemia Hypertension [facility] Work Phone: Evaluation noteNo InformationNort [employer] Other Evaluation note* Diagnosis 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 (CMS/HCC)- Primary Preoperative clearance Unspecified pre-operative examination Bunion of right foot Bunion Essential hypertension, benign (CMS/HCC) Essential hypertension, benign Type 2 diabetes mellitus with microalbuminuria, with long-term current use of insulin ([facility]) documented in this encounter [facility] HealthcareEvaluation noteNo assessment information availableGlenbeigh Hospital Work Phone: Evaluation note* Diagnosis Sequelae, post-stroke- Primary Seizure ([facility]) Other convulsions Hypomagnesemia Disorders of magnesium metabolism Colitis Other and unspecified noninfectious gastroenteritis and colitis Abnormal brain MRI Nonspecific (abnormal) findings on radiological and other examination of skull and head Poorly controlled diabetes mellitus ([facility]) Type II or unspecified type diabetes mellitus without mention of complication, not stated as uncontrolled CKD stage 3 secondary to diabetes ([facility]) Type 2 diabetes mellitus with complication, with long-term current use of insulin ([facility]) Gait instability Abnormality of gait PBA (pseudobulbar affect) 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 [facility] Diagnosis Onset Date Resolution Status Diabetes acute Dietary counseling and surveillance acute Hyperlipidemia acute Hypertension acute [facility] Work Phone: History general Narrative - [...] 2020 Hospitalization History [facility] [employer] Other History general Narrative - Reported* Type Description Date Medical History Diabetes Medical History Hypertension Medical History [facility] Medical History Chronic pelvic pain Medical History CRF stage 3 Medical History LEFT ANKLE FRACTURE WITH SURGICA L REPAIR Medical History RIGHT FOOT ABSCESS Medical History Seizures Medical History 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 Medical History HYPERLIPIDEMIA Medical History TYPE [...] 2020 Hospitalization History [facility]/2020 [employer] Other History general Narrative - Reported* Type Description Date Medical History Diabetes Medical History Hypertension Medical History [facility] Medical History Chronic pelvic pain Medical History CRF stage 3 Medical History LEFT ANKLE FRACTURE WITH SURGICA L REPAIR Medical History RIGHT FOOT ABSCESS Medical History Seizures 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 Medical History HYPERLIPIDEMIA Medical History TYPE [...] 2020 Hospitalization History [facility]2020 [employer] Other InstructionsNot on filedocumented in this encounter [employer] SystemInstructionsNot on filedocumented in this encounter [employer] SystemInstructionsNot on filedocumented in this encounter [facility] [employer] SystemInstructionsNot on filedocumented in this encounter [employer] SystemReason for referral (narrative)* Consultation (Routine) - Pending Review Specialty Diagnoses / Procedures Referred By Jade leblanc Referred To Contact Behavioral Health Diagnoses Sequelae, post-stroke PBA (pseudobulbar affect) Yarelis Preciado MD [address] [place] [address], [address] [phone] Awa Atkinson, GREASER HELPER[facility] [address] [place] [address] Referral ID Status Reason Start Date Expiration Date Visits Requested Visits Authorized [id number] Pending Review Specialty Services Required 09/10/2023 09/09/2024 1 1 * Medication Prior Authorization - Pending Review Specialty Diagnoses / Procedures Referred By Jade leblanc Referred To Contact Diagnoses Sequelae, post-stroke PBA (pseudobulbar affect) Yarelis Preciado MD [address] [place] [address], [address] [address] Referral ID Status Reason Start Date Expiration Date V isits Requested Visits Authorized [id number] Pending Review 1 1 [facility] Summary Purpose Family History No Family History Records FoundNo Family History Records FoundNo Family History Records FoundNo Family History Records FoundNo Family History Records FoundNo Family History Records FoundNo Family History Records FoundNo Family History Records FoundNo Family History Records Found Advance Directives No Advanced Directives Records FoundDocuments on File Type Date Recorded Patient Assistant Research Scientist Expl anation Advance Directives and Living Will Power of Inspection Engineer Latest Code Status on File Code Status [...] section and content) DATE CREATED AUTHOR 12/22/2017 [facility] DATE CREATED AUTHOR AUTHOR'S ORGANIZ ATION 01/24/2018 [facility] DATE CREATED AUTHOR AUTHOR'S ORGANIZ ATION 09/14/2019 [facility] DATE CREATED AUTHOR AUTHOR'S ORGANIZ ATION 05/11/2022 [facility] [employer] [facility] DATE CREATED AUTHOR AUTHOR'S ORGANIZ ATION 11/11/2022 [facility] DATE CREATED AUTHOR AUTHOR'S ORGANIZ ATION 08/13/2023 [facility] DATE CREATED AUTHOR AUTHOR'S ORGANIZ ATION 10/30/2023 [facility] EPIC DATE CREATED AUTHOR AUTHOR'S ORGANIZ ATION 11/22/2023 [facility] DATE CREATED AUTHOR AUTHOR'S ORGANIZ ATION 12/03/2023 [facility] Reason for Visit (unrecogniz ed section and content) Status Reason Specialty Diagnoses / Procedures Referre d By Contact Referred To Contact Diagnoses Vitreous hemorrhage (HCC) VITREOUS HEMORRAGE Procedures NM VITRECTOMY,MECHANICAL NM VITRECTOMY PARS PLANA REMOVE PRERETINAL MEMBRANE VITRECTOMY 25 GAUGE Martir Bang MD [facility] [facility], [address] [place] [address] [facility] Reason Comments Follow-up Surgical clearance Reason Onset Date Comments N[employer] 09/13/2023 Reason Comments Follow-up Patient is here toda y as a post stroke follow up Reason Onset Date Comments Request for Surgical Clearance 09/17/2023 Reason Comments Med Refill Care Teams (unrecognized sec tion and content) Gradall Operator Relationship Specialty Start Date End Date Christophe Irwin MD [address] [place] [phone] PCP - General Family Medicine 07/20/23 Gradall Operator Relationship Specialty Start Date End Date Christophe Irwin MD [address] [place] [phone] PCP - General Family Medicine 07/20/23 Gradall Operator Relationship Specialty Start Date End Date Christophe Irwin MD [address] [place] [address] PCP - General Family Medicine 07/23/23 Gradall Operator Relationship Specialty Start Date End Date Christophe Irwin MD [address] [place] [address] PCP - General Family Medicine 07/23/23 Gradall Operator Relationship Specialty Start Date End Date Christophe Irwin MD [address] [place] [address] [facility]CP [facility] 07/23/23 Team Status: Active Member Role Status Dates Roney Sahu MD Primary Care Provider Active Team Status: Inactive Member Role Status Dates Roney Sahu MD Primary Care Provider Active Start: September 30, 2023 End: September 30, 2023 Nancy Stevens APRN Attending Provider Active Start: September 30, 2023 End: September 30, 2023 Gradall Operator Relationship Specialty Start Date End Date Christophe Irwin MD [address] [place] [address] [facility]CP [facility] 07/23/23 Goals (unrecognized section and content) Goals [...] BE BASED ON THE PRIMARY CLINICAL RECORDS. [facility]. provides no warranty or guarantee of the accuracy or completeness of information in this document.
== END 2024-01-14 11:06 | disposition home or self-care (01) ==
LOC: WC 11:05
PROVIDERS: PCP Family Medicine; Visit Provider Podiatrist Foot & Ankle Surgery
DX: T81.89XA Other complications of procedures, not elsewhere classified, initial encounter (principal)
CPT/HCPCS: 29445; 73630

== ENCOUNTER 2024-01-31 12:59 | Outpatient (OUT) | payer MEDICARE, SELFPAY ==
--- OUTSIDE RECORDS SUMMARY | 2024-01-31 13:14 | XMS_ITS | CCD ---
Author Organization [facility] Care Team Providers Care Brass Chaser Name Role Phone GUTIERREZ, ALAYNA Unavailable Unavailable [...] CHRISTOPHE [facility] Primary [facility] Unavailable LETICIALUIS ANGEL OLIVREISABELLA Admitting Unavailable LETICIAISABELLA Admitting Unavailable LETICIAKIMLY Attending Unavailable NADERER, DR CHRISTOPHE Redmond Primary [facility] Unavailable NADERER, DR CHRISTOPHE Redmond Primary [facility] Unavailable MONET MARTEL Attending Unavailable MONET MARTEL Admitting Unavailable MONET MARTEL Attending Unavailable NADERER, DR CHRISTOPHE Redomnd Primary Care Unavailable MONET MARTEL Admitting Unavailable [...] Unavailable Christophe Irwin MD Primary Care Provider [phone] Nancy Stevens Attending Unavailable MapNancy villalobos Admitting Unavailable Roney Sahu Primary Care Unavailable Christophe Irwin MD Primary Care Provider [phone] CHRISTOPHE IRWIN Attending Unavailable NADERER, CHRISTOPHE Attending [...] [MEPERIDINE (PF)] Drug Allergy 01-31-[address] [facility] Repository (20 sources) morphine; Translations: [MORPHINE] Drug Allergy 01-31-20 Other (See Comments), Anaphylaxis, Unknown, Other [facility] Repository (20 sources) Meperidine; Translations: [MEPERIDINE] Drug Allergy 01-31-20 14 Other (See Comments), Anaphylaxis, Unknown [place], [place] (7 sources) Sertraline; Translations: [SERTRALINE HCL] Drug Allergy 09-05-19 Hives [place], [place] (1 source) Other Propensity to adverse reactions 09-05-19 Other (See Comments) [place], [place] (20 sources) Acetaminophen; Translations: [ACETAMINOPHEN] Drug Allergy 05-06-20 Unknown, Constipation [facility] (1 source) Meperidine Drug Allergy 03-06-20 15 [facility] Repository (1 source) Sertraline Drug Allergy 05-11-20 20 [facility] (1 source) Tylenol-Codeine #3 Drug allergy (disorder) 05-11-20 [facility] (6 sources) dulaglutide Drug Allergy 05-06-20 23 g/i [facility] (7 sources) semaglutide; Translations: [SEMAGLUTIDE] Drug Allergy 05-06-20 23 g/i s/e [facility] (16 sources) Acetaminophen / Codeine; Translations: [ACETAMINOPHEN-CO DEINE] Drug Allergy 08-13-19 18 Shortness of breath, Abdominal Pain [facility] (3 sources) Meperidine Drug Allergy 12-15-19 23 Unknown [facility] (4 sources) Sertraline; Translations: [SERTRALINE] Drug Allergy 09-05-19 [facility] (1 source) Acetaminophen Drug Allergy 05-06-20 [facility] (1 source) dulaglutide Drug Allergy 05-06-20 [facility] (1 source) Meperidine Drug Allergy 05-06-20 [facility] (1 source) semaglutide Drug allergy (disorder) 05-06-20 [facility] Medications Current Medications Medication Drug [...] 1 capsule Orally Active Cholecalciferol 1.25 MG (24516 UT) 1 capsule Orally Active dapagliflozin 10 mg oral tablet (8 sources) Sodium-Glucose Cotransporter 2 Inhibitor take 1 tablet by mouth in the morning dapagliflozin (FARXIGA) 10 mg tablet Take 1 tablet (10 mg total) by mouth in the morning. 0 Active dextromethorphan hydrobromide 20 mg / quiNIDine sulfate 10 mg oral capsule (5 sources) Antiarrhythmic, Uncompetitive H-fqmavh-A-aspartate Receptor Antagonist, Cytochrome P450 2D6 Inhibitor, Sigma-1 [...] mo uth every week Ergocalciferol 1.25 MG (45919 UT) 1 capsule Orally weekly Jan, Active [...] day; Start: 11-02-2022 take 1 tablet by eweilna th in the morning losartan (Cozaar) 100 [...] BID; Note: Source Status: Taking; Provider: Rodney rCuz ( ) metoprolol tartrate 50 mg oral [...] sources) Long-term current use of insulin; Translations: [[facility] (current) use of insulin] Episodic Other bone [...] Onset: 07-03-2022 Episodic Other aftercare (5 sources) supervisor intermediates (current) use of insulin; Translations: [[facility] (current) use of insulin] Onset: 11-01-2017 Resolved: [...] Range Facility Office Visiton 12-01-2023 Follow-up visit [id number] Lisa Harrell Karena 1960 F Date Provider Department Center 12/01/2023 RUPESH MAHMOOD [facility] Family History Adopted: Yes Family history unknown: Yes Level of Service:19692 [place] OFFICE/OUTPATIENT NEW MODERATE MDM 45 MINUTES Normal [facility] CBC AND AUTO DIFFon 11-20-19 ABSOLUTE BASOPHIL 0.1 X10E9/L Normal 0.0-0.2 [facility] Comment on above: Performed By: #### C BCA, CMP, 68289-2, THYR #### [facility] ([id number]) [address] [place] [address] 92059 #### 47554-5, 2088-06 #### [facility] ([id number]) [address] [place] [address], [address] [place] [address] ABSOLUTE NEUTROPHIL 8.2 X10E9/L High 1.5-6.6 [facility] Comment on above: Performed By: #### C BCA, CMP, 67368-8, THYR #### [facility] ([id number]) [address] [place] [address] 51527 #### 91948-0, 2088-06 #### [facility] ([id number]) [address] [place] [address], [address] [place] [address] Basophils/100 WBC (Bld) 0.8 % Normal [facility] Comment on above: Performed By: #### C BCA, CMP, 19126-4, THYR #### [facility] ([id number]) [address] [place] [address] 81865 #### 65218-3, 2088-06 #### [facility] ([id number]) [address] [place] [address], [address] [place] [address] Eosinophils (Bld) [#/Vol] 0.1 10*3/uL Normal 0.0-0.4 [facility] Comment on above: Performed By: #### C BCA, CMP, 72471-1, THYR #### [facility] ([id number]) [address] [place] [address] 74008 #### 40141-3, 2088-06 #### [facility] ([id number]) [address] [place] [address], [facility] [address] [place] [address] Eosinophils/100 WBC (Bld) 1.4 % Normal [facility] Comment on above: Performed By: #### C BCA, CMP, 45185-1, THYR #### [facility] ([id number]) [address] [place] [address] 55312 #### 28307-4, 2088-06 #### [facility] ([id number]) [address] [place] [address], [facility] [address] [place] [address] Erythrocyte distribution width (RBC) [Ratio] 14.4 % Normal 11.5-15.0 [facility] Comment on above: Performed By: #### C BCA, CMP, 24237-8, THYR #### [facility] ([id number]) [address] [place] [address] 66182 #### 63478-6, 2088-06 #### [facility] ([id number]) [address] [place] [address], [address] [place] [address] Hematocrit (Bld) [Volume fraction] 34.1 % Low 35-47 [facility] Comment on above: Performed By: #### C BCA, CMP, 55671-6, THYR #### [facility] ([id number]) [address] [place] [address] #### 02626-2, 2088-06 #### [facility] ([id number]) [address], [address] [place] [address] Hemoglobin (Bld) [Mass/Vol] 11.4 g/dL Low 11.7-15.5 [facility] Comment on above: Performed By: #### C BCA, CMP, 94931-5, THYR #### [facility] ([id number]) [address] [place] [address] 03143 #### 15531-3, 2088-06 #### [facility] ([id number]) [address], [address] [place] [address] Lymphocytes (Bld) [#/Vol] 1.4 10*3/uL Normal 1.0-3.5 [facility] Comment on above: Performed By: #### C BCA, CMP, 18320-8, THYR #### [facility] ([id number]) [address] [place] [address] 50961 #### 02007-7, 2088-06 #### [facility] ([id number]) [address], [address] [place] [address] Lymphocytes/100 WBC (Bld) 13.2 % Normal [facility] Comment on above: Performed By: #### Teresa BCA, CMP, 25361-7, THYR #### [facility] ([id number]) [address] [place] [address] 46054 #### 54698-3, 2088-06 #### [facility] ([id number]) [address], [address] [place] [address] MCH (RBC) [Entitic mass] 26.5 pg Low 27-34 [facility] Comment on above: Performed By: #### C BCA, CMP, 13272-9, THYR #### [facility] ([id number]) [address] [place] [address] 75962 #### 42928-3, 2088-06 #### [facility] ([id number]) [address], [address] [place] [address] MCHC (RBC) [Mass/Vol] 33.4 g/dL Normal 32-36 [facility] Comment on above: Performed By: #### C BCA, CMP, 85066-1, THYR #### [facility] ([id number]) [address] [place] [address] 76350 #### 96441-0, 2088-06 #### [facility] ([id number]) [address], [address] [place] [address] MCV (RBC) [Entitic vol] 79 fL Low 80-100 [facility] Comment on above: Performed By: #### C BCA, CMP, 21758-7, THYR #### [facility] ([id number]) [address] [place] [address] 52481 #### 13688-5, 2088-06 #### [facility] ([id number]) [address], [address] [place] [address] Monocytes (Bld) [#/Vol] 0.6 10*3/uL Normal 0-0.9 [facility] Comment on above: Performed By: #### C BCA, CMP, 37677-8, THYR #### [facility] ([id number]) [address] [place] [address] 25875 #### 01943-4, 2088-06 #### [facility] ([id number]) [address], [address] [place] [address] Monocytes/100 WBC (Bld) 5.5 % Normal [facility] Comment on above: Performed By: #### C BCA, CMP, 78646-2, THYR #### [facility] ([id number]) [address] [place] [address] 63164 #### 24364-4, 2088-06 #### [facility] ([id number]) [address], [address] [place] [address] Neutrophils/100 WBC (Bld) 79.1 % Normal [facility] Comment on above: Performed By: #### C BCA, CMP, 05867-1, THYR #### [facility] ([id number]) [address] [place] [address] 98352 #### 06898-6, 2088-06 #### [facility] ([id number]) [address] [facility], [address] [place] [address] Platelet mean volume (Bld) [Entitic vol] 8.2 fL Normal 7-12 [facility] Comment on above: Performed By: #### C BCA, CMP, 44669-0, THYR #### [facility] ([id number]) [address] [place] [address] 38626 #### 81212-0, 2088-06 #### [facility] ([id number]) [address], [address] [place] [address] Platelets (Bld) [#/Vol] 346 10*3/uL Normal 150-450 [facility] Comment on above: Performed By: #### C BCA, CMP, 54672-3, THYR #### [facility] ([id number]) [address] [place] [address] 02878 #### 81656-6, 2088-06 #### [facility] ([id number]) [address], [address] [place] [address] RBC COUNT 4.29 X10E12/L Normal 3.80-5.20 [facility] Comment on above: Performed By: #### C BCA, CMP, 25636-3, THYR #### [facility] ([id number]) [address] [place] [address] 49404 #### 59211-4, 2088-06 #### [facility] ([id number]) [address], [address] [place] [address] WBC (Bld) [#/Vol] 10.4 10*3/uL Normal 4.0-11.0 [facility] Comment on above: Performed By: #### C BCA, CMP, 67367-6, THYR #### [facility] ([id number]) [address] [place] [address] 51688 #### 50456-6, 2088-06 #### [facility] ([id number]) [address], [address] [place] [address] COMPREHENSIVE METABOLIC PANE [facility] 11-20-2023 Albumin [Mass/Vol] 3.7 g/dL Normal 3.2-5.3 [facility] Comment on above: Performed By: #### C BCA, CMP, 54408-4, THYR #### [facility] ([id number]) [address] [place] [address] 34539 #### 74451-1, 2088-06 #### [facility] ([id number]) [address], [address] [place] [address] ALP [Catalytic activity/Vol] 121 U/L Normal 39-130 [facility] Comment on above: Performed By: #### C BCA, CMP, 98467-6, THYR #### [facility] ([id number]) [address] [place] [address] 88487 #### 39733-3, 2088-06 #### [facility] ([id number]) [address], [address] [place] [address] ALT [Catalytic activity/Vol] 12 U/L Normal 0-31 [facility] Comment on above: Performed By: #### C BCA, CMP, 81297-9, THYR #### [facility] ([id number]) [address] [place] [address] 19024 #### 95120-1, 2088-06 #### [facility] ([id number]) [address] [facility], [address] [place] [address] Anion gap [Moles/Vol] 9 mmol/L Normal 5-15 [facility] Comment on above: Performed By: #### C BCA, CMP, 99263-8, THYR #### [facility] ([id number]) [address] [place] [address] 17999 #### 80586-3, 2088-06 #### [facility] ([id number]) [address] [facility], [address] [place] [address] AST [Catalytic activity/Vol] 16 U/L Normal 0-41 [facility] Comment on above: Performed By: #### C BCA, CMP, 64998-8, THYR #### [facility] ([id number]) [address] [place] [address] 82866 #### 58027-2, 2088-06 #### [facility] ([id number]) [address] [facility], [address] [place] [address] Bilirubin [Mass/Vol] 0.4 mg/dL Normal 0.3-1.2 [facility] Comment on above: Performed By: #### C BCA, CMP, 58942-2, THYR #### [facility] ([id number]) [address] [place] [address] 73914 #### 98582-9, 2088-06 #### [facility] ([id number]) [address] [facility], [address] [place] [address] Calcium [Mass/Vol] 9.3 mg/dL Normal 8.5-10.5 [facility] Comment on above: Performed By: #### C BCA, CMP, 52990-0, THYR #### [facility] ([id number]) [address] [place] [address] 62896 #### 60112-5, 2088-06 #### [facility] ([id number]) [address] [facility], [address] [place] [address] Chloride [Moles/Vol] 101 mmol/L Normal 98-109 [facility] Comment on above: Performed By: #### C BCA, CMP, 50511-0, THYR #### [facility] ([id number]) [address] [place] [address] 28458 #### 31116-1, 2088-06 #### [facility] ([id number]) [address] [facility], [address] [place] [address] CO2 [Moles/Vol] 23 mmol/L Normal 22-32 [facility] Comment on above: Performed By: #### C BCA, CMP, 88572-1, THYR #### [facility] ([id number]) [address] [place] [address] 30829 #### 24559-9, 2088-06 #### [facility] ([id number]) [address] [facility], [address] [place] [address] Creatinine [Mass/Vol] 2.20 mg/dL High 0.40-1.00 [facility] Comment on above: Result Comment: METH OD TRACEABLE TO IDMS STANDARD Performed By: #### C BCA, CMP, 62190-0, THYR #### [facility] ([id number]) [address] [place] [address] 61074 #### 98832-2, 2089-1 #### [facility] ([id number]) [address], [address] [place] [address] GFR/1.73 sq M.predicted among non-blacks MDRD (S/P/Bld) [Vol rate/Area] 25 mL/min/{1.73_m2} Low >59 [facility] Comment on above: Result Comment: Reported eGFR is based on the CKD-EPI 2020 equation that does not use a race coefficient. Performed By: #### C MARQUES, CMP, 96502-1, THYR #### [facility] ([id number]) [address] [place] [address] 92035 #### 08594-0, 2088-06 #### [facility] ([id number]) [address], [address] [place] [address] Glucose [Mass/Vol] 148 mg/dL High 65-99 [facility] Comment on above: Performed By: #### C BCA, CMP, 36416-3, THYR #### [facility] ([id number]) [address] [place] [address] 11913 #### 64456-6, 2088-06 #### [facility] ([id number]) [address], [address] [place] [address] Potassium [Moles/Vol] 4.1 mmol/L Normal 3.5-5.0 [facility] Comment on above: Performed By: #### C BCA, CMP, 49010-4, THYR #### [facility] ([id number]) [address] [place] [address] 64964 #### 76222-2, 2088-06 #### [facility] ([id number]) [address], [address] [place] [address] Protein [Mass/Vol] 7.9 g/dL Normal 6.0-8.0 [facility] Comment on above: Performed By: #### C BCA, CMP, 97222-5, THYR #### [facility] ([id number]) [address] [place] [address] 29060 #### 35853-8, 2088-06 #### [facility] ([id number]) [address], [address] [place] [address] Sodium [Moles/Vol] 133 mmol/L Low 134-146 [facility] Comment on above: Performed By: #### C BCA, CMP, 47217-7, THYR #### [facility] ([id number]) [address] [place] [address] 86695 #### 86877-9, 2088-06 #### [facility] ([id number]) [address] [facility], [address] [place] [address] Urea nitrogen [Mass/Vol] 38 mg/dL High 5-27 [facility] Comment on above: Performed By: #### C BCA, CMP, 23410-4, THYR #### [facility] ([id number]) [address] [place] [address] 74466 #### 94518-5, 2088-06 #### [facility] ([id number]) [address] [facility], [address] [place] [address] LIPASEon 11-20-2023 Lipase [Catalytic activity/Vol] 35 U/L Normal 17-40 [facility] Comment on above: Performed By: #### C BCA, CMP, 02449-4, THYR #### [facility] ([id number]) [address] [place] [address] 21067 #### 80346-8, 2088-06 #### [facility] ([id number]) [address], [address] [place] [address] Lactate (P brendon) [Moles/Vol]o n 11-20-2023 LACTATE W/REFLEX 1.6 mmol/L Normal 0.4-2.0 [facility] Comment on above: Result Comment: Result did not trigger repeat Lactate, re-order if needed. Performed By: #### C MARQUES CMP, 10973-8, THYR #### [facility] ([id number]) [address] [place] [address] 23571 #### 52691-7, 2088-06 #### [facility] ([id number]) [address], [address] [place] [address] Natriuretic peptide B [Mass/ Vol]on 11-20-2023 Natriuretic peptide B (Bld) [Mass/Vol] 132 pg/mL High <100.0 [facility] Comment on above: Performed By: #### C MARQUES CMP, 07899-4, THYR #### [facility] ([id number]) [address] [place] [address] 92154 #### 25589-6, 2088-06 #### [facility] ([id number]) [address], [address] [place] [address] Troponin I.cardiac High sens itivity method [Mass/Vol]on 11-20-2023 1 HOUR TROP I, HIGH SENSITIVITY 15 ng/L Normal <16 [facility] Comment on above: Performed By: #### C MARQUES CMP, 66973-7, THYR #### [facility] ([id number]) [address] [place] [address] 24031 #### 59827-8, 2088-06 #### [facility] ([id number]) [address], [address] [place] [address] TROPONIN I, HIGH SENSITIVITY 14 ng/L Normal <16 [facility] Comment on above: Performed By: #### C BCA, CMP, 28571-2, THYR #### [facility] ([id number]) [address] [place] [address] 86900 #### 41248-4, 2088-06 #### [facility] ([id number]) [address], [address] [place] [address] CBC AND AUTO DIFFon 07-26-19 24 ABSOLUTE BASOPHIL 0.1 X10E9/L Normal 0.0-0.2 [facility] Comment on above: Performed By: #### C BCA, CMP, 23130-9, THYR #### [facility] ([id number]) [address] [place] [address] 91344 #### 34040-9, 2088-06 #### [facility] ([id number]) [address] [facility], [address] [place] [address] ABSOLUTE NEUTROPHIL 5.4 X10E9/L Normal 1.5-6.6 [facility] Comment on above: Performed By: #### C BCA, CMP, 23114-9, THYR #### [facility] ([id number]) [address] [place] [address] 97000 #### 24533-3, 2088-06 #### [facility] ([id number]) [address] [facility], [address] [place] [address] Basophils/100 WBC (Bld) 0.8 % Normal [facility] Comment on above: Performed By: #### C BCA, CMP, 90740-8, THYR #### [facility] ([id number]) [address] [place] [address] 37299 #### 93820-7, 2088-06 #### [facility] ([id number]) [address] [facility], [address] [place] [address] Eosinophils (Bld) [#/Vol] 0.3 10*3/uL Normal 0.0-0.4 [facility] Comment on above: Performed By: #### C BCA, CMP, 09831-6, THYR #### [facility] ([id number]) [address] [place] [address] 59095 #### 05022-8, 2088-06 #### [facility] ([id number]) [address], [address] [place] [address] Eosinophils/100 WBC (Bld) 3.7 % Normal [facility] Comment on above: Performed By: #### C MARQUES, CMP, 11437-2, THYR #### [facility] ([id number]) [address] [place] [address] 23042 #### 00627-8, 2088-06 #### [facility] ([id number]) [address], [address] [place] [address] Erythrocyte distribution width (RBC) [Ratio] 14.6 % Normal 11.5-15.0 [facility] Comment on above: Performed By: #### C MARQUES, CMP, 43424-0, THYR #### [facility] ([id number]) [address] [place] [address] 99721 #### 02553-2, 2088-06 #### [facility] ([id number]) [address], [address] [place] [address] Hematocrit (Bld) [Volume fraction] 31.9 % Low 35-47 [facility] Comment on above: Performed By: #### C MARQUES, CMP, 62922-5, THYR #### [facility] ([id number]) [address] [place] [address] 48196 #### 09487-4, 2088-06 #### [facility] ([id number]) [address], [address] [place] [address] Hemoglobin (Bld) [Mass/Vol] 10.9 g/dL Low 11.7-15.5 [facility] Comment on above: Performed By: #### C MARQUES, CMP, 79564-8, THYR #### [facility] ([id number]) [address] [place] [address] #### 23938-9, 2088-06 #### [facility] ([id number]) [address], [address] [place] [address] Lymphocytes (Bld) [#/Vol] 2.6 10*3/uL Normal 1.0-3.5 [facility] Comment on above: Performed By: #### C BCA, CMP, 75202-1, THYR #### [facility] ([id number]) [address] [place] [address] #### 40100-2, 2088-06 #### [facility] ([id number]) [address], [address] [place] [address] Lymphocytes/100 WBC (Bld) 28.6 % Normal [facility] Comment on above: Performed By: #### C BCA, CMP, 75757-7, THYR #### [facility] ([id number]) [address] [place] [address] #### 52763-4, 2088-06 #### [facility] ([id number]) [address], [address] [place] [address] MCH (RBC) [Entitic mass] 27.4 pg Normal 27-34 [facility] Comment on above: Performed By: #### C BCA, CMP, 76064-8, THYR #### [facility] ([id number]) [address] [place] [address] #### 44757-3, 2088-06 #### [facility] ([id number]) [address], [address] [place] [address] MCHC (RBC) [Mass/Vol] 34.2 g/dL Normal 32-36 [facility] Comment on above: Performed By: #### C BCA, CMP, 11998-2, THYR #### [facility] ([id number]) [address] [place] [address] #### 18905-5, 2088-06 #### [facility] ([id number]) [address], [address] [place] [address] MCV (RBC) [Entitic vol] 80 fL Normal 80-100 [facility] Comment on above: Performed By: #### C BCA, CMP, 19359-1, THYR #### [facility] ([id number]) [address] [place] [address] #### 29014-6, 2088-06 #### [facility] ([id number]) [address], [address] [place] [address] Monocytes (Bld) [#/Vol] 0.8 10*3/uL Normal 0-0.9 [facility] Comment on above: Performed By: #### C BCA, CMP, 41460-4, THYR #### [facility] ([id number]) [address] [place] [address] #### 23490-1, 2088-06 #### [facility] ([id number]) [address], [address] [place] [place] [address] Monocytes/100 WBC (Bld) 8.1 % Normal [facility] Comment on above: Performed By: #### C BCA, CMP, 06438-3, THYR #### [facility] ([id number]) [address] [place] [address] 13942 #### 42343-3, 2088-06 #### [facility] ([id number]) [address], [address] [place] [address] Neutrophils/100 WBC (Bld) 58.8 % Normal [facility] Comment on above: Performed By: #### C BCA, CMP, 20827-4, THYR #### [facility] ([id number]) [address] [place] [address] 88504 #### 46622-6, 2088-06 #### [facility] ([id number]) [address], [address] [place] [address] Platelet mean volume (Bld) [Entitic vol] 8.3 fL Normal 7-12 [facility] Comment on above: Performed By: #### C BCA, CMP, 20205-5, THYR #### [facility] ([id number]) [address] [place] [address] 69422 #### 87130-5, 2088-06 #### [facility] ([id number]) [address] [facility], [address] [place] [address] Platelets (Bld) [#/Vol] 271 10*3/uL Normal 150-450 [facility] Comment on above: Performed By: #### Teresa BCA, CMP, 91215-7, THYR #### [facility] ([id number]) [address] [place] [address] 05939 #### 11128-5, 2088-06 #### [facility] ([id number]) [address], [address] [place] [address] RBC COUNT 3.98 X10E12/L Normal 3.80-5.20 [facility] Comment on above: Performed By: #### C BCA, CMP, 47295-4, THYR #### [facility] ([id number]) [address] [place] [address] 68581 #### 61279-8, 2088-06 #### [facility] ([id number]) [address] [facility], [address] [place] [address] WBC (Bld) [#/Vol] 9.2 10*3/uL Normal 4.0-11.0 [facility] Comment on above: Performed By: #### C BCA, CMP, 07811-3, THYR #### [facility] ([id number]) [address] [place] [address] 55202 #### 36653-0, 2088-06 #### [facility] ([id number]) [address] [place] [address], [address] [place] [address] COMPREHENSIVE METABOLIC PANE Ace 07-26-2023 Albumin [Mass/Vol] 3.2 g/dL Normal 3.2-5.3 [facility] Comment on above: Performed By: #### C BCA, CMP, 34927-4, THYR #### [facility] ([id number]) [address] [place] [address] 51868 #### 15450-7, 2088-06 #### [facility] ([id number]) [address] [place] [address], [address] [place] [address] ALP [Catalytic activity/Vol] 105 U/L Normal 39-130 [facility] Comment on above: Performed By: #### C BCA, CMP, 33806-1, THYR #### [facility] ([id number]) [address] [place] [address] 44553 #### 69726-7, 2088-06 #### [facility] ([id number]) [address] [place] [address], [address] [place] [address] ALT [Catalytic activity/Vol] 10 U/L Normal 0-31 [facility] Comment on above: Performed By: #### C BCA, CMP, 87759-9, THYR #### [facility] ([id number]) [address] [place] [address] 21711 #### 61413-4, 2088-06 #### [facility] ([id number]) [address] [facility], [address] [place] [address] Anion gap [Moles/Vol] 12 mmol/L Normal 5-15 [facility] Comment on above: Performed By: #### C BCA, CMP, 31038-6, THYR #### [facility] ([id number]) [address] [place] [address] 12943 #### 31282-3, 2088-06 #### [facility] ([id number]) [address] [facility], [address] [place] [address] AST [Catalytic activity/Vol] 14 U/L Normal 0-41 [facility] Comment on above: Performed By: #### C BCA, CMP, 86086-5, THYR #### [facility] ([id number]) [address] [place] [address] 03403 #### 69444-4, 2088-06 #### [facility] ([id number]) [address] [facility], [address] [place] [address] Bilirubin [Mass/Vol] 0.4 mg/dL Normal 0.3-1.2 [facility] Comment on above: Performed By: #### C BCA, CMP, 24138-2, THYR #### [facility] ([id number]) [address] [place] [address] 93333 #### 36905-2, 2088-06 #### [facility] ([id number]) [address] [facility], [address] [place] [address] Calcium [Mass/Vol] 9.0 mg/dL Normal 8.5-10.5 [facility] Comment on above: Performed By: #### C BCA, CMP, 13489-0, THYR #### [facility] ([id number]) [address] [place] [address] 51545 #### 67828-4, 2088-06 #### [facility] ([id number]) [address] [facility], [address] [place] [address] Chloride [Moles/Vol] 96 mmol/L Low 98-109 [facility] Comment on above: Performed By: #### C BCA, CMP, 70599-5, THYR #### [facility] ([id number]) [address] [place] [address] 31532 #### 17666-7, 2088-06 #### [facility] ([id number]) [address] [facility], [address] [place] [address] CO2 [Moles/Vol] 22 mmol/L Normal 22-32 [facility] Comment on above: Performed By: #### C BCA, CMP, 64496-5, THYR #### [facility] ([id number]) [address] [place] [address] 11622 #### 89246-1, 2088-06 #### [facility] ([id number]) [address] [facility], [address] [place] [address] Creatinine [Mass/Vol] 2.38 mg/dL High 0.40-1.00 [facility] Comment on above: Result Comment: METH OD TRACEABLE TO IDMS STANDARD Performed By: #### C BCA, CMP, 80367-5, THYR #### [facility] ([id number]) [address] [place] [address] 26884 #### 60459-0, 2088-06 #### [facility] ([id number]) [address] [facility], [address] [place] [address] GFR/1.73 sq M.predicted among non-blacks MDRD (S/P/Bld) [Vol rate/Area] 23 mL/min/{1.73_m2} Low >59 [facility] Comment on above: Result Comment: Reported eGFR is based on the CKD-EPI 2020 equation that does not use a race coefficient. Performed By: #### C BCA, CMP, 15014-6, THYR #### [facility] ([id number]) [address] [place] [address] 13927 #### 76810-3, 2088-06 #### [facility] ([id number]) [address], [address] [place] [address] Glucose [Mass/Vol] 116 mg/dL High 65-99 [facility] Comment on above: Performed By: #### C BCA, CMP, 46483-9, THYR #### [facility] ([id number]) [address] [place] [address] 95774 #### 12250-9, 2088-06 #### [facility] ([id number]) [address], [address] [place] [address] Potassium [Moles/Vol] 3.3 mmol/L Low 3.5-5.0 [facility] Comment on above: Performed By: #### C BCA, CMP, 07907-3, THYR #### [facility] ([id number]) [address] [place] [address] 24245 #### 94417-0, 2088-06 #### [facility] ([id number]) [address], [address] [place] [address] Protein [Mass/Vol] 7.0 g/dL Normal 6.0-8.0 [facility] Comment on above: Performed By: #### C BCA, CMP, 73409-1, THYR #### [facility] ([id number]) [address] [place] [address] 30471 #### 95753-5, 2088-06 #### [facility] ([id number]) [address], [address] [place] [address] Sodium [Moles/Vol] 130 mmol/L Low 134-146 [facility] Comment on above: Performed By: #### C NIKKY MOHAN, 43403-0, THYR #### [facility] ([id number]) [address] [place] [address] 36879 #### 00459-8, 2088-06 #### [facility] ([id number]) [address], [address] [place] [address] Urea nitrogen [Mass/Vol] 43 mg/dL High 5-23 [facility] Comment on above: Performed By: #### C NIKKY MOHAN, 58550-2, THYR #### [facility] ([id number]) [address] [place] [address] 18976 #### 23095-5, 2088-06 #### [facility] ([id number]) [address], [address] [place] [address] Glucose Glucometer (BldC) [M ass/Vol]on 07-26-2023 Glucose [Mass/Vol] 174 mg/dL High 65-99 [facility] MAGNESIUMon 07-26-2023 Magnesium [Mass/Vol] 1.9 mg/dL Normal 1.8-2.6 [facility] Comment on above: Performed By: #### C MARQUES, CMP, 72238-4, THYR #### [facility] ([id number]) [address] [place] [address] 98774 #### 14394-2, 2088-06 #### [facility] ([id number]) [address], [address] [place] [address] CBC AND AUTO DIFFon 07-25-19 24 ABSOLUTE BASOPHIL 0.1 X10E9/L Normal 0.0-0.2 [facility] Comment on above: Performed By: #### C MARQUES, CMP, 67981-3, THYR #### [facility] ([id number]) [address] [place] [address] 19615 #### 78694-6, 2088-06 #### [facility] ([id number]) [address] [place] [address], [address] [place] [address] ABSOLUTE NEUTROPHIL 6.6 X10E9/L Normal 1.5-6.6 [facility] Comment on above: Performed By: #### C BCA, CMP, 99930-8, THYR #### [facility] ([id number]) [address] [place] [address] 35278 #### 99636-2, 2088-06 #### [facility] ([id number]) [address] [place] [address], [address] [place] [address] Basophils/100 WBC (Bld) 0.7 % Normal [facility] Comment on above: Performed By: #### C BCA, CMP, 24979-1, THYR #### [facility] ([id number]) [address] [place] [address] 32205 #### 28052-3, 2088-06 #### [facility] ([id number]) [address] [place] [address], [address] [place] [address] Eosinophils (Bld) [#/Vol] 0.3 10*3/uL Normal 0.0-0.4 [facility] Comment on above: Performed By: #### C BCA, CMP, 80936-9, THYR #### [facility] ([id number]) [address] [place] [address] 06407 #### 32100-5, 2088-06 #### [facility] ([id number]) [address] [place] [address], [address] [place] [address] Eosinophils/100 WBC (Bld) 2.8 % Normal [facility] Comment on above: Performed By: #### C BCA, CMP, 09381-0, THYR #### [facility] ([id number]) [address] [place] [address] 45805 #### 31097-6, 2088-06 #### [facility] ([id number]) [address], [address] [place] [address] Erythrocyte distribution width (RBC) [Ratio] 14.4 % Normal 11.5-15.0 [facility] Comment on above: Performed By: #### C BCA, CMP, 51954-2, THYR #### [facility] ([id number]) [address] [place] [address] 97813 #### 36118-5, 2088-06 #### [facility] ([id number]) [address] [facility], [address] [place] [address] Hematocrit (Bld) [Volume fraction] 36.8 % Normal 35-47 [facility] Comment on above: Performed By: #### C BCA, CMP, 48836-9, THYR #### [facility] ([id number]) [address] [place] [address] 55295 #### 98163-7, 2088-06 #### [facility] ([id number]) [address], [address] [place] [address] Hemoglobin (Bld) [Mass/Vol] 12.5 g/dL Normal 11.7-15.5 [facility] Comment on above: Performed By: #### C BCA, CMP, 89638-4, THYR #### [facility] ([id number]) [address] [place] [address] 01852 #### 20901-4, 2088-06 #### [facility] ([id number]) [address], [address] [place] [address] Lymphocytes (Bld) [#/Vol] 2.1 10*3/uL Normal 1.0-3.5 [facility] Comment on above: Performed By: #### C BCA, CMP, 41988-8, THYR #### [facility] ([id number]) [address] [place] [address] 46667 #### 12906-0, 2088-06 #### [facility] ([id number]) [address], [address] [place] [address] Lymphocytes/100 WBC (Bld) 20.8 % Normal [facility] Comment on above: Performed By: #### C BCA, CMP, 81223-8, THYR #### [facility] ([id number]) [address] [place] [address] 14584 #### 88470-5, 2088-06 #### [facility] ([id number]) [address], [address] [place] [address] MCH (RBC) [Entitic mass] 27.3 pg Normal 27-34 [facility] Comment on above: Performed By: #### C BCA, CMP, 44218-0, THYR #### [facility] ([id number]) [address] [place] [address] 86223 #### 28845-0, 2088-06 #### [facility] ([id number]) [address], [address] [place] [address] MCHC (RBC) [Mass/Vol] 34.0 g/dL Normal 32-36 [facility] Comment on above: Performed By: #### C BCA, CMP, 57008-2, THYR #### [facility] ([id number]) [address] [place] [address] 99024 #### 47218-4, 2088-06 #### [facility] ([id number]) [address], [address] [place] [address] MCV (RBC) [Entitic vol] 80 fL Normal 80-100 [facility] Comment on above: Performed By: #### C BCA, CMP, 70898-2, THYR #### [facility] ([id number]) [address] [place] [address] 25353 #### 48554-1, 2088-06 #### [facility] ([id number]) [address], [address] [place] [address] Monocytes (Bld) [#/Vol] 0.9 10*3/uL Normal 0-0.9 [facility] Comment on above: Performed By: #### C BCA, CMP, 21760-9, THYR #### [facility] ([id number]) [address] [place] [address] 64413 #### 52354-8, 2088-06 #### [facility] ([id number]) [address], [address] [place] [address] Monocytes/100 WBC (Bld) 8.8 % Normal [facility] Comment on above: Performed By: #### C BCA, CMP, 13945-6, THYR #### [facility] ([id number]) [address] [place] [address] 10445 #### 92492-5, 2088-06 #### [facility] ([id number]) [address], [address] [place] [address] Neutrophils/100 WBC (Bld) 66.9 % Normal [facility] Comment on above: Performed By: #### C BCA, CMP, 86582-2, THYR #### [facility] ([id number]) [address] [place] [address] 44557 #### 05884-7, 2088-06 #### [facility] ([id number]) [address], [address] [place] [address] Platelet mean volume (Bld) [Entitic vol] 8.5 fL Normal 7-12 [facility] Comment on above: Performed By: #### C BCA, CMP, 87044-4, THYR #### [facility] ([id number]) [address] [place] [address] 44827 #### 72254-0, 2088-06 #### [facility] ([id number]) [address] [facility], [address] [place] [address] Platelets (Bld) [#/Vol] 248 10*3/uL Normal 150-450 [facility] Comment on above: Performed By: #### C BCA, CMP, 59338-3, THYR #### [facility] ([id number]) [address] [place] [address] 46120 #### 40038-0, 2088-06 #### [facility] ([id number]) [address] [facility], [facility] [address] [place] [address] RBC COUNT 4.58 X10E12/L Normal 3.80-5.20 [facility] Comment on above: Performed By: #### C BCA, CMP, 45060-6, THYR #### [facility] ([id number]) [address] [place] [address] 36389 #### 26069-0, 2088-06 #### [facility] ([id number]) [address] [facility], [address] [place] [address] WBC (Bld) [#/Vol] 9.9 10*3/uL Normal 4.0-11.0 [facility] Comment on above: Performed By: #### C BCA, CMP, 81276-3, THYR #### [facility] ([id number]) [address] [place] [address] 14553 #### 38687-0, 2088-06 #### [facility] ([id number]) [address] [facility], [address] [place] [address] COMPREHENSIVE METABOLIC PANE Ace 07-25-2023 Albumin [Mass/Vol] 3.7 g/dL Normal 3.2-5.3 [facility] Comment on above: Performed By: #### C BCA, CMP, 87950-1, THYR #### [facility] ([id number]) [address] [place] [address] 91606 #### 27024-1, 2088-06 #### [facility] ([id number]) [address] [facility], [address] [place] [address] ALP [Catalytic activity/Vol] 119 U/L Normal 39-130 [facility] Comment on above: Performed By: #### C BCA, CMP, 65991-0, THYR #### [facility] ([id number]) [address] [place] [address] 38719 #### 54675-3, 2088-06 #### [facility] ([id number]) [address] [facility], [address] [place] [address] ALT [Catalytic activity/Vol] 14 U/L Normal 0-31 [facility] Comment on above: Performed By: #### C BCA, CMP, 59801-8, THYR #### [facility] ([id number]) [address] [place] [address] 75660 #### 42834-0, 2088-06 #### [facility] ([id number]) [address] [facility], [address] [place] [address] Anion gap [Moles/Vol] 13 mmol/L Normal 5-15 [facility] Comment on above: Performed By: #### C BCA, CMP, 56937-1, THYR #### [facility] ([id number]) [address] [place] [address] 71330 #### 53037-8, 2089-1 #### [facility] ([id number]) [address], [address] [place] [address] AST [Catalytic activity/Vol] 20 U/L Normal 0-41 [facility] Comment on above: Performed By: #### C BCA, CMP, 86581-2, THYR #### [facility] ([id number]) [address] [place] [address] 55798 #### 42537-3, 2088-06 #### [facility] ([id number]) [address] [facility], [address] [place] [address] Bilirubin [Mass/Vol] 0.7 mg/dL Normal 0.3-1.2 [facility] Comment on above: Performed By: #### C BCA, CMP, 41427-2, THYR #### [facility] ([id number]) [address] [place] [address] 90226 #### 95683-4, 2088-06 #### [facility] ([id number]) [address] [facility], [address] [place] [address] Calcium [Mass/Vol] 9.1 mg/dL Normal 8.5-10.5 [facility] Comment on above: Performed By: #### C BCA, CMP, 11475-1, THYR #### [facility] ([id number]) [address] [place] [address] 56230 #### 02222-1, 2088-06 #### [facility] ([id number]) [address], [address] [place] [address] Chloride [Moles/Vol] 97 mmol/L Low 98-109 [facility] Comment on above: Performed By: #### C BCA, CMP, 55662-0, THYR #### [facility] ([id number]) [address] [place] [address] 02734 #### 92429-2, 2088-06 #### [facility] ([id number]) [address], [address] [place] [address] CO2 [Moles/Vol] 21 mmol/L Low 22-32 [facility] Comment on above: Performed By: #### C MARQUES, CMP, 22725-8, THYR #### [facility] ([id number]) [address] [place] [address] 10847 #### 05517-9, 2088-06 #### [facility] ([id number]) [address], [address] [place] [address] Creatinine [Mass/Vol] 2.04 mg/dL High 0.40-1.00 [facility] Comment on above: Result Comment: METH OD TRACEABLE TO IDMS STANDARD Performed By: #### C MARQUES, CMP, 42152-8, THYR #### [facility] ([id number]) [address] [place] [address] 11920 #### 79938-1, 2088-06 #### [facility] ([id number]) [address], [address] [place] [address] GFR/1.73 sq M.predicted among non-blacks MDRD (S/P/Bld) [Vol rate/Area] 27 mL/min/{1.73_m2} Low >59 [facility] Comment on above: Result Comment: Reported eGFR is based on the CKD-EPI 1 equation that does not use a race coefficient. Performed By: #### C BCA, CMP, 53970-2, THYR #### [facility] ([id number]) [address] [place] [address] 59334 #### 51653-4, 2088-06 #### [facility] ([id number]) [address], [address] [place] [address] Glucose [Mass/Vol] 187 mg/dL High 65-99 [facility] Comment on above: Performed By: #### C BCA, CMP, 23268-1, THYR #### [facility] ([id number]) [address] [place] [address] 32840 #### 83219-5, 2088-06 #### [facility] ([id number]) [address] [place] [address] Potassium [Moles/Vol] 3.5 mmol/L Normal 3.5-5.0 [facility] Comment on above: Performed By: #### C BCA, CMP, 12257-8, THYR #### [facility] ([id number]) [address] [place] [address] 12554 #### 45844-0, 2088-06 #### [facility] ([id number]) [address], [address] [place] [address] Protein [Mass/Vol] 7.9 g/dL Normal 6.0-8.0 [facility] Comment on above: Performed By: #### C BCA, CMP, 38242-3, THYR #### [facility] ([id number]) [address] [place] [address] 79591 #### 04015-1, 2088-06 #### [facility] ([id number]) [address], [address] [place] [address] Sodium [Moles/Vol] 131 mmol/L Low 134-146 [facility] Comment on above: Performed By: #### C BCA, CMP, 30710-5, THYR #### [facility] ([id number]) [address] [place] [address] 20207 #### 75581-1, 2088-06 #### [facility] ([id number]) [address], [address] [place] [address] Urea nitrogen [Mass/Vol] 34 mg/dL High 5-23 [facility] Comment on above: Performed By: #### C MARQUES, NIKKY, 12860-1, THYR #### [facility] ([id number]) [address] [place] [address] #### 65532-3, 2088-06 #### [facility] ([id number]) [address], [address] [place] [address] Glucose Glucometer (BldC) [M ass/Vol]on 07-25-2023 Glucose [Mass/Vol] 245 mg/dL High 65-99 [facility] Glucose [Mass/Vol] 183 mg/dL High 65-99 [facility] Glucose [Mass/Vol] 207 mg/dL High 65-99 [facility] MAGNESIUMon 07-25-2023 Magnesium [Mass/Vol] 2.3 mg/dL Normal 1.8-2.6 [facility] Comment on above: Performed By: #### C MARQUES, NIKKY, 25021-4, THYR #### [facility] ([id number]) [address] [place] [address] #### 70745-9, 2088-06 #### [facility] ([id number]) [address], [address] [place] [address] POTASSIUMon 07-25-2023 Potassium [Moles/Vol] 4.1 mmol/L Normal 3.5-5.0 [facility] Comment on above: Performed By: #### C MARQUES, CMP, 35473-1, THYR #### [facility] ([id number]) [address] [place] [address] #### 00806-9, 2088-06 #### [facility] ([id number]) [address], [address] [place] [address] CBC AND AUTO DIFFon 07-24-19 24 ABSOLUTE BASOPHIL 0.1 X10E9/L Normal 0.0-0.2 [facility] Comment on above: Performed By: #### C BCA, CMP, 83640-0, THYR #### [facility] ([id number]) [address] [place] [address] #### 25072-1, 2088-06 #### [facility] ([id number]) [address], [address] [place] [address] ABSOLUTE NEUTROPHIL 5.4 X10E9/L Normal 1.5-6.6 [facility] Comment on above: Performed By: #### C BCA, CMP, 51515-9, THYR #### [facility] ([id number]) [address] [place] [address] #### 82465-0, 2088-06 #### [facility] ([id number]) [address], [address] [place] [address] Basophils/100 WBC (Bld) 0.7 % Normal [facility] Comment on above: Performed By: #### C BCA, CMP, 50736-9, THYR #### [facility] ([id number]) [address] [place] [address] #### 16911-8, 2088-06 #### [facility] ([id number]) [address], [address] [place] [address] Eosinophils (Bld) [#/Vol] 0.2 10*3/uL Normal 0.0-0.4 [facility] Comment on above: Performed By: #### C BCA, CMP, 84848-3, THYR #### [facility] ([id number]) [address] [place] [address] #### 37781-1, 2088-06 #### [facility] ([id number]) [address], [address] [place] [address] Eosinophils/100 WBC (Bld) 2.7 % Normal [facility] Comment on above: Performed By: #### C NIKKY MOHAN, 94240-2, THYR #### [facility] ([id number]) [address] [place] [address] #### 59895-7, 2088-06 #### [facility] ([id number]) [address], [address] [place] [address] Erythrocyte distribution width (RBC) [Ratio] 14.3 % Normal 11.5-15.0 [facility] [facility] Comment on above: Performed By: #### C MARQUES CMP, 81417-3, THYR #### [facility] ([id number]) [address] [place] [address] 18115 #### 89084-0, 2088-06 #### [facility] ([id number]) [address], [address] [place] [address] Hematocrit (Bld) [Volume fraction] 35.1 % Normal 35-47 [facility] Comment on above: Performed By: #### Teresa MOHAN CMP, 18993-1, THYR #### [facility] ([id number]) [address] [place] [address] 42029 #### 66959-1, 2088-06 #### [facility] ([id number]) [address], [address] [place] [address] Hemoglobin (Bld) [Mass/Vol] 12.0 g/dL Normal 11.7-15.5 [facility] Comment on above: Performed By: #### Teresa MOHAN CMP, 54743-0, THYR #### [facility] ([id number]) [address] [place] [address] 74884 #### 19996-9, 2088-06 #### [facility] ([id number]) [address], [address] [place] [address] Lymphocytes (Bld) [#/Vol] 2.3 10*3/uL Normal 1.0-3.5 [facility] Comment on above: Performed By: #### C BCA, CMP, 62278-6, THYR #### [facility] ([id number]) [address] [place] [address] 05378 #### 05537-8, 2088-06 #### [facility] ([id number]) [address] [facility], [address] [place] [address] Lymphocytes/100 WBC (Bld) 26.1 % Normal [facility] Comment on above: Performed By: #### C BCA, CMP, 97573-5, THYR #### [facility] ([id number]) [address] [place] [address] 57839 #### 53224-4, 2088-06 #### [facility] ([id number]) [address] [facility], [address] [place] [address] MCH (RBC) [Entitic mass] 27.2 pg Normal 27-34 [facility] Comment on above: Performed By: #### C BCA, CMP, 50580-7, THYR #### [facility] ([id number]) [address] [place] [address] 97525 #### 61112-1, 2088-06 #### [facility] ([id number]) [address] [facility], [address] [place] [address] MCHC (RBC) [Mass/Vol] 34.2 g/dL Normal 32-36 [facility] Comment on above: Performed By: #### C BCA, CMP, 58773-4, THYR #### [facility] ([id number]) [address] [place] [address] 02027 #### 54109-7, 2088-06 #### [facility] ([id number]) [address], [address] [place] [address] MCV (RBC) [Entitic vol] 80 fL Normal 80-100 [facility] Comment on above: Performed By: #### C BCA, CMP, 53513-8, THYR #### [facility] ([id number]) [address] [place] [address] 27880 #### 48777-5, 2088-06 #### [facility] ([id number]) [address] [place] [address] Monocytes (Bld) [#/Vol] 0.9 10*3/uL Normal 0-0.9 [facility] Comment on above: Performed By: #### C BCA, CMP, 56770-8, THYR #### [facility] ([id number]) [address] [place] [address] 91089 #### 65478-0, 2088-06 #### [facility] ([id number]) [address] [facility], [address] [place] [address] Monocytes/100 WBC (Bld) 9.8 % Normal [facility] Comment on above: Performed By: #### C BCA, CMP, 55782-4, THYR #### [facility] ([id number]) [address] [place] [address] 50385 #### 95192-4, 2088-06 #### [facility] ([id number]) [address] [place] [address] Neutrophils/100 WBC (Bld) 60.7 % Normal [facility] Comment on above: Performed By: #### C BCA, CMP, 18066-8, THYR #### [facility] ([id number]) [address] [place] [address] 62706 #### 10170-2, 2088-06 #### [facility] ([id number]) [address] [facility], [address] [place] [address] Platelet mean volume (Bld) [Entitic vol] 8.7 fL Normal 7-12 [facility] Comment on above: Performed By: #### C BCA, CMP, 86195-0, THYR #### [facility] ([id number]) [address] [place] [address] 57066 #### 81506-3, 2088-06 #### [facility] ([id number]) [facility] [facility], [address] [place] [address] Platelets (Bld) [#/Vol] 288 10*3/uL Normal 150-450 [facility] Comment on above: Performed By: #### C BCA, CMP, 88710-0, THYR #### [facility] ([id number]) [address] [place] [address] 89211 #### 99769-6, 2088-06 #### [facility] ([id number]) [address] [place] [address], [address] [place] [address] RBC COUNT 4.41 X10E12/L Normal 3.80-5.20 [facility] Comment on above: Performed By: #### C BCA, CMP, 79242-5, THYR #### [facility] ([id number]) [address] [place] [address] 89361 #### 90660-1, 2088-06 #### [facility] ([id number]) [address] [place] [address], [address] [place] [address] WBC (Bld) [#/Vol] 8.8 10*3/uL Normal 4.0-11.0 [facility] Comment on above: Performed By: #### C BCA, CMP, 37312-3, THYR #### [facility] ([id number]) [address] [place] [address] 42952 #### 80651-5, 2088-06 #### [facility] ([id number]) [address], [address] [place] [address] COMPREHENSIVE METABOLIC PANE Ace 07-24-2023 Albumin [Mass/Vol] 3.6 g/dL Normal 3.2-5.3 [facility] Comment on above: Performed By: #### C BCA, CMP, 91285-1, THYR #### [facility] ([id number]) [address] [place] [address] 61411 #### 93062-0, 2088-06 #### [facility] ([id number]) [address] [facility], [address] [place] [address] ALP [Catalytic activity/Vol] 120 U/L Normal 39-130 [facility] Comment on above: Performed By: #### C BCA, CMP, 59922-3, THYR #### [facility] ([id number]) [address] [place] [address] 37665 #### 37654-3, 2088-06 #### [facility] ([id number]) [address] [facility], [address] [place] [address] ALT [Catalytic activity/Vol] 11 U/L Normal 0-31 [facility] Comment on above: Performed By: #### C BCA, CMP, 21423-0, THYR #### [facility] ([id number]) [address] [place] [address] 24739 #### 53544-2, 2088-06 #### [facility] ([id number]) [address] [facility], [address] [place] [address] Anion gap [Moles/Vol] 11 mmol/L Normal 5-15 [facility] Comment on above: Performed By: #### C BCA, CMP, 87800-0, THYR #### [facility] ([id number]) [address] [place] [address] 45227 #### 35621-1, 2088-06 #### [facility] ([id number]) [address], [address] [place] [address] AST [Catalytic activity/Vol] 15 U/L Normal 0-41 [facility] Comment on above: Performed By: #### C BCA, CMP, 69160-0, THYR #### [facility] ([id number]) [address] [place] [address] 12708 #### 36828-2, 2088-06 #### [facility] ([id number]) [address] [facility], [address] [place] [address] Bilirubin [Mass/Vol] 0.5 mg/dL Normal 0.3-1.2 [facility] Comment on above: Performed By: #### C BCA, CMP, 90941-8, THYR #### [facility] ([id number]) [address] [place] [address] 99364 #### 71089-0, 2088-06 #### [facility] ([id number]) [address] [facility], [address] [place] [address] Calcium [Mass/Vol] 9.4 mg/dL Normal 8.5-10.5 [facility] Comment on above: Performed By: #### C BCA, CMP, 05464-4, THYR #### [facility] ([id number]) [address] [place] [address] 66808 #### 36629-7, 2088-06 #### [facility] ([id number]) [address], [address] [place] [address] Chloride [Moles/Vol] 101 mmol/L Normal 98-109 [facility] Comment on above: Performed By: #### C BCA, CMP, 86211-3, THYR #### [facility] ([id number]) [address] [place] [address] 03091 #### 47012-1, 2088-06 #### [facility] ([id number]) [address], [address] [place] [address] CO2 [Moles/Vol] 24 mmol/L Normal 22-32 [facility] Comment on above: Performed By: #### C BCA, CMP, 05397-2, THYR #### [facility] ([id number]) [address] [place] [address] 89235 #### 72194-4, 2088-06 #### [facility] ([id number]) [address], [address] [place] [address] Creatinine [Mass/Vol] 2.02 mg/dL High 0.40-1.00 [facility] Comment on above: Result Comment: METH OD TRACEABLE TO IDMS STANDARD Performed By: #### C BCA, CMP, 67890-1, THYR #### [facility] ([id number]) [address] [place] [address] 35464 #### 95089-7, 2088-06 #### [facility] ([id number]) [address], [address] [place] [address] GFR/1.73 sq M.predicted among non-blacks MDRD (S/P/Bld) [Vol rate/Area] 28 mL/min/{1.73_m2} Low >59 [facility] Comment on above: Result Comment: Reported eGFR is based on the CKD-EPI 2020 equation that does not use a race coefficient. Performed By: #### C BCA, CMP, 80593-0, THYR #### [facility] ([id number]) [address] [place] [address] 88652 #### 77709-1, 2088-06 #### [facility] ([id number]) [address], [address] [place] [address] Glucose [Mass/Vol] 68 mg/dL Normal 65-99 [facility] Comment on above: Performed By: #### C BCA, CMP, 04894-6, THYR #### [facility] ([id number]) [address] [place] [address] 31025 #### 15802-4, 2088-06 #### [facility] ([id number]) [address] [facility], [address] [place] [address] Potassium [Moles/Vol] 2.9 mmol/L Low 3.5-5.0 [facility] Comment on above: Performed By: #### C BCA, CMP, 15017-2, THYR #### [facility] ([id number]) [address] [place] [address] 28359 #### 38081-8, 2088-06 #### [facility] ([id number]) [address] [facility], [address] [place] [address] Protein [Mass/Vol] 7.9 g/dL Normal 6.0-8.0 [facility] Comment on above: Performed By: #### C BCA, CMP, 86373-8, THYR #### [facility] ([id number]) [address] [place] [address] 37565 #### 23308-1, 2088-06 #### [facility] ([id number]) [address] [facility], [address] [place] [address] Sodium [Moles/Vol] 136 mmol/L Normal 134-146 [facility] Comment on above: Performed By: #### C BCA, CMP, 99032-9, THYR #### [facility] ([id number]) [address] [place] [address] 06794 #### 80401-7, 2088-06 #### [facility] ([id number]) [address] [facility], [address] [place] [address] Urea nitrogen [Mass/Vol] 35 mg/dL High 5-23 [facility] Comment on above: Performed By: #### C NIKKY MOHAN, 05911-7, THYR #### [facility] ([id number]) [address] [place] [address] 85993 #### 06590-2, 2088-06 #### [facility] ([id number]) [address] [facility], [address] [place] [address] Glucose Glucometer (BldC) [M ass/Vol]on 07-24-2023 Glucose [Mass/Vol] 245 mg/dL High 65-99 [facility] Glucose [Mass/Vol] 204 mg/dL High 65-99 [facility] Glucose [Mass/Vol] 134 mg/dL High 65-99 [facility] MAGNESIUMon 07-24-2023 Magnesium [Mass/Vol] 2.6 mg/dL Normal 1.8-2.6 [facility] Comment on above: Performed By: #### C NIKKY MOHAN, 19166-8, THYR #### [facility] ([id number]) [address] [place] [address] 81647 #### 65638-2, 2088-06 #### [facility] ([id number]) [address] [facility], [address] [place] [address] Magnesium [Mass/Vol] 1.6 mg/dL Low 1.8-2.6 [facility] Comment on above: Performed By: #### C NIKKY OMHAN, 30348-5, THYR #### [facility] ([id number]) [address] [place] [address] 66554 #### 91844-2, 2088-06 #### [facility] ([id number]) [address] [place] [address] POTASSIUMon 07-24-2023 Potassium [Moles/Vol] 3.9 mmol/L Normal 3.5-5.0 [facility] Comment on above: Performed By: #### C BCA, CMP, 05928-8, THYR #### [facility] ([id number]) [address] [place] [address] 60046 #### 47211-1, 2088-06 #### [facility] ([id number]) [address] [place] [address] CBC AND AUTO DIFFon 07-23-19 ABSOLUTE BASOPHIL 0.1 X10E9/L Normal 0.0-0.2 [facility] Comment on above: Performed By: #### C BCA, CMP, 57850-9, THYR #### [facility] ([id number]) [address] [place] [address] 15088 #### 02896-2, 2088-06 #### [facility] ([id number]) [address] [facility], [address] [place] [address] ABSOLUTE NEUTROPHIL 7.1 X10E9/L High 1.5-6.6 [facility] Comment on above: Performed By: #### C BCA, CMP, 89743-4, THYR #### [facility] ([id number]) [address] [place] [address] 04545 #### 96130-0, 2088-06 #### [facility] ([id number]) [address], [address] [place] [address] Basophils/100 WBC (Bld) 0.9 % Normal [facility] Comment on above: Performed By: #### C BCA, CMP, 54935-8, THYR #### [facility] ([id number]) [address] [place] [address] [place] [address] #### 19852-0, 2088-06 #### [facility] ([id number]) [address] [place] [address], [facility] [address] [place] [address] Eosinophils (Bld) [#/Vol] 0.3 10*3/uL Normal 0.0-0.4 [facility] Comment on above: Performed By: #### C BCA, CMP, 11679-0, THYR #### [facility] ([id number]) [address] [place] [address] 54215 #### 31609-2, 2088-06 #### [facility] ([id number]) [address] [place] [address], [address] [address] Eosinophils/100 WBC (Bld) 2.5 % Normal [facility] Comment on above: Performed By: #### C BCA, CMP, 97989-6, THYR #### [facility] ([id number]) [address] [place] [address] 11671 #### 18113-7, 2088-06 #### [facility] ([id number]) [address] [place] [address], [facility] [address] [place] [address] Erythrocyte distribution width (RBC) [Ratio] 14.7 % Normal 11.5-15.0 [facility] Comment on above: Performed By: #### C BCA, CMP, 97727-9, THYR #### [facility] ([id number]) [address] [place] [address] 78494 #### 98265-9, 2088-06 #### [facility] ([id number]) [address] [place] [address], [address] [place] [address] Hematocrit (Bld) [Volume fraction] 39.8 % Normal 35-47 [facility] Comment on above: Performed By: #### C BCA, CMP, 37612-9, THYR #### [facility] ([id number]) [address] [place] [address] 32460 #### 73767-8, 2088-06 #### [facility] ([id number]) [address], [address] [place] [address] Hemoglobin (Bld) [Mass/Vol] 13.6 g/dL Normal 11.7-15.5 [facility] Comment on above: Performed By: #### C BCA, CMP, 45282-9, THYR #### [facility] ([id number]) [address] [place] [address] 20838 #### 36184-1, 2088-06 #### [facility] ([id number]) [address] [place] [address] Lymphocytes (Bld) [#/Vol] 2.4 10*3/uL Normal 1.0-3.5 [facility] Comment on above: Performed By: #### C BCA, CMP, 86328-7, THYR #### [facility] ([id number]) [address] [place] [address] 33243 #### 44274-7, 2088-06 #### [facility] ([id number]) [address], [address] [place] [address] Lymphocytes/100 WBC (Bld) 21.8 % Normal [facility] Comment on above: Performed By: #### C BCA, CMP, 83341-9, THYR #### [facility] ([id number]) [address] [place] [address] 31070 #### 73888-8, 2088-06 #### [facility] ([id number]) [address], [address] [place] [address] MCH (RBC) [Entitic mass] 27.5 pg Normal 27-34 [facility] Comment on above: Performed By: #### C BCA, CMP, 56279-9, THYR #### [facility] ([id number]) [address] [place] [address] 85850 #### 23956-0, 2088-06 #### [facility] ([id number]) [address], [address] [place] [address] MCHC (RBC) [Mass/Vol] 34.2 g/dL Normal 32-36 [facility] Comment on above: Performed By: #### C BCA, CMP, 34790-4, THYR #### [facility] ([id number]) [address] [place] [address] 79688 #### 52207-4, 2088-06 #### [facility] ([id number]) [address] [place] [address] MCV (RBC) [Entitic vol] 80 fL Normal 80-100 [facility] Comment on above: Performed By: #### C BCA, CMP, 34000-5, THYR #### [facility] ([id number]) [address] [place] [address] 18383 #### 59658-4, 2088-06 #### [facility] ([id number]) [address] [place] [address] Monocytes (Bld) [#/Vol] 1.0 10*3/uL High 0-0.9 [facility] Comment on above: Performed By: #### C BCA, CMP, 13375-8, THYR #### [facility] ([id number]) [address] [place] [address] 67654 #### 00365-9, 2088-06 #### [facility] ([id number]) [address] [place] [address] Monocytes/100 WBC (Bld) 8.8 % Normal [facility] Comment on above: Performed By: #### C BCA, CMP, 89433-1, THYR #### [facility] ([id number]) [address] [place] [address] 49742 #### 69089-5, 2088-06 #### [facility] ([id number]) [address], [address] [place] [address] Neutrophils/100 WBC (Bld) 66.0 % Normal [facility] Comment on above: Performed By: #### C BCA, CMP, 65983-0, THYR #### [facility] ([id number]) [address] [place] [address] 24016 #### 77138-6, 2088-06 #### [facility] ([id number]) [address], [address] [place] [address] Platelet mean volume (Bld) [Entitic vol] 8.1 fL Normal 7-12 [facility] Comment on above: Performed By: #### C BCA, CMP, 29953-9, THYR #### [facility] ([id number]) [address] [place] [address] 61216 #### 08535-2, 2088-06 #### [facility] ([id number]) [address], [address] [place] [address] Platelets (Bld) [#/Vol] 326 10*3/uL Normal 150-450 [facility] Comment on above: Performed By: #### C BCA, CMP, 75658-3, THYR #### [facility] ([id number]) [address] [place] [address] 09403 #### 26174-1, 2088-06 #### [facility] ([id number]) [address], [address] [place] [address] RBC COUNT 4.95 X10E12/L Normal 3.80-5.20 [facility] Comment on above: Performed By: #### C BCA, CMP, 89953-8, THYR #### [facility] ([id number]) [address] [place] [address] 98430 #### 96218-4, 2088-06 #### [facility] ([id number]) [address] [facility], [address] [place] [address] WBC (Bld) [#/Vol] 10.8 10*3/uL Normal 4.0-11.0 [facility] Comment on above: Performed By: #### C BCA, CMP, 62603-4, THYR #### [facility] ([id number]) [address] [place] [address] 24705 #### 08873-1, 2088-06 #### [facility] ([id number]) [address] [facility], [address] [place] [address] COMPREHENSIVE METABOLIC PANE Ace 07-23-2023 Albumin [Mass/Vol] 4.1 g/dL Normal 3.2-5.3 [facility] Comment on above: Performed By: #### C BCA, CMP, 52347-3, THYR #### [facility] ([id number]) [address] [place] [address] 85465 #### 17247-3, 2088-06 #### [facility] ([id number]) [address] [facility], [address] [place] [address] ALP [Catalytic activity/Vol] 133 U/L High 39-130 [facility] Comment on above: Performed By: #### C BCA, CMP, 95134-8, THYR #### [facility] ([id number]) [address] [place] [address] 22010 #### 31387-8, 2088-06 #### [facility] ([id number]) [address] [facility], [address] [place] [address] ALT [Catalytic activity/Vol] 12 U/L Normal 0-31 [facility] Comment on above: Performed By: #### C BCA, CMP, 40597-7, THYR #### [facility] ([id number]) [address] [place] [address] 31761 #### 05904-7, 2088-06 #### [facility] ([id number]) [address] [facility], [address] [place] [address] Anion gap [Moles/Vol] 13 mmol/L Normal 5-15 [facility] Comment on above: Performed By: #### C MARQUES CMP, 45230-1, THYR #### [facility] ([id number]) [address] [place] [address] #### 94797-8, 2088-06 #### [facility] ([id number]) [address] [facility], [address] [place] [address] AST [Catalytic activity/Vol] 18 U/L Normal 0-41 [facility] Comment on above: Performed By: #### C BCA, CMP, 55139-2, THYR #### [facility] ([id number]) [address] [place] [address]32 #### 21825-9, 2088-06 #### [facility] ([id number]) [address] [facility], [address] [place] [address] Bilirubin [Mass/Vol] 0.4 mg/dL Normal 0.3-1.2 [facility] Comment on above: Performed By: #### C BCA, CMP, 60797-1, THYR #### [facility] ([id number]) [address] [place] [address]8522 #### 13566-7, 2088-06 #### [facility] ([id number]) [address] [facility], [address] [place] [address] Calcium [Mass/Vol] 9.6 mg/dL Normal 8.5-10.5 [facility] Comment on above: Performed By: #### C BCA, CMP, 66475-6, THYR #### [facility] ([id number]) [address] [place] [address] 41416 #### 02015-6, 2088-06 #### [facility] ([id number]) [address] [facility], [address] [place] [address] Chloride [Moles/Vol] 99 mmol/L Normal 98-109 [facility] Comment on above: Performed By: #### C BCA, CMP, 05640-1, THYR #### [facility] ([id number]) [address] [place] [address]233 #### 18532-3, 2088-06 #### [facility] ([id number]) [address] [facility], [address] [place] [address] CO2 [Moles/Vol] 23 mmol/L Normal 22-32 [facility] Comment on above: Performed By: #### C BCA, CMP, 39958-9, THYR #### [facility] ([id number]) [address] [place] [address] #### 90238-7, 2088-06 #### [facility] ([id number]) [address] [facility], [address] [place] [address] Creatinine [Mass/Vol] 2.14 mg/dL High 0.40-1.00 [facility] Comment on above: Result Comment: METH OD TRACEABLE TO IDMS STANDARD Performed By: #### C BCA, CMP, 52209-9, THYR #### [facility] ([id number]) [address] [place] [address]18 #### 49366-4, 2088-06 #### [facility] ([id number]) [address], [address] [place] [address] GFR/1.73 sq M.predicted among non-blacks MDRD (S/P/Bld) [Vol rate/Area] 26 mL/min/{1.73_m2} Low >59 [facility] Comment on above: Result Comment: Reported eGFR is based on the CKD-EPI 2020 equation that does not use a race coefficient. Performed By: #### C BCA, CMP, 54393-2, THYR #### [facility] ([id number]) [address] [place] [address] #### 96333-7, 2088-06 #### [facility] ([id number]) [address], [address] [place] [address] Glucose [Mass/Vol] 159 mg/dL High 65-99 [facility] Comment on above: Performed By: #### C BCA, CMP, 14959-8, THYR #### [facility] ([id number]) [address] [place] [address]2666 #### 68295-4, 2088-06 #### [facility] ([id number]) [address], [address] [place] [address] Potassium [Moles/Vol] 3.4 mmol/L Low 3.5-5.0 [facility] Comment on above: Performed By: #### C BCA, CMP, 76277-7, THYR #### [facility] ([id number]) [address] [place] [address] 60021 #### 50079-0, 2088-06 #### [facility] ([id number]) [address], [address] [place] [address] Protein [Mass/Vol] 9.4 g/dL High 6.0-8.0 [facility] Comment on above: Performed By: #### C BCA, CMP, 63604-2, THYR #### [facility] ([id number]) [address] [place] [address] #### 25186-2, 2088-06 #### [facility] ([id number]) [address], [address] [place] [address] Sodium [Moles/Vol] 135 mmol/L Normal 134-146 [facility] Comment on above: Performed By: #### C BCA, CMP, 69618-3, THYR #### [facility] ([id number]) [address] [place] [address] #### 83780-1, 2088-06 #### [facility] ([id number]) [address], [address] [place] [address] Urea nitrogen [Mass/Vol] 38 mg/dL High 5-23 [facility] Comment on above: Performed By: #### C BCA, CMP, 50826-3, THYR #### [facility] ([id number]) [address] [place] [address] #### 16375-4, 2088-06 #### [facility] ([id number]) [address], [address] [place] [address] CT BRAIN WO CONT STROKE ALER Ton [...] Dorsey MD on 07/23/2023 9:24 AM Normal [facility] CT CTA CAROTIDon 07-23-2023 CT CTA [...] as low as reasonably achievable.. The [place] symptomatic carotid endarterectomy trial (NASCET) method for [...] Romero MD on 07/23/2023 9:36 AM Normal [facility] CT CTA HEADon 07-23-2023 CT CTA [...] Seals MD on 07/23/2023 9:36 AM Normal [facility] DIRECT LDLon 07-23-2023 Cholesterol in LDL [Mass/Vol] 190 mg/dL High <130 [facility] Comment on above: Result Comment: LDL <100 mg/dL - Desirable LDL 130-159 mg/dL - Borderline High Risk LDL >160 mg/dL - High Risk Performed By: #### C MARQUES, [facility], 44295-5, THYR #### [facility] ([id number]) [address] [place] [address], [place] [address] #### 26551-9, 2088-06 #### [facility] ([id number]) [address] [place] [address], [address] [place] [address] Glucose Glucometer (BldC) [M ass/Vol]on 07-23-2023 Glucose [Mass/Vol] 116 mg/dL High 65-99 [facility] Glucose [Mass/Vol] 155 mg/dL High 65-99 [facility] Glucose [Mass/Vol] 109 mg/dL High 65-99 [facility] Glucose [Mass/Vol] 155 mg/dL High 65-99 [facility] HGB A1C (GLYCO-HGB)on 2023 Glucose [Mass/Vol] 171 mg/dL Normal [facility] Comment on above: Performed By: #### C MARQUES, CMP, 92004-5, THYR #### [facility] ([id number]) [address] [place] [address] #### 87615-7, 2088-06 #### [facility] ([id number]) [address], [address] [place] [address] HbA1c (Bld) [Mass fraction] 7.6 % High 4.4-5.6 [facility] Comment on above: Result Comment: NOTE ADA Guidelines Result HgbA1c Normal : less than 5.7 % Prediabetes : 5.7 % to 6.4 % Diabetes : > 6.4 % Use with caution in patients with abnormal hemoglobin variants as the half-life of red blood cells and in vivo glycation rates are affected. Performed By: #### C MARQUES, CMP, 01354-7, THYR #### [facility] ([id number]) [address] [place] [address] #### 08768-3, 2088-06 #### [facility] ([id number]) [address], [address] [place] [address] Lipid 1996 panelon Cholesterol [Mass/Vol] 327 mg/dL High 150-200 [facility] Comment on above: Performed By: #### Teresa BCA, CMP, 32725-1, THYR #### [facility] ([id number]) [address] [place] [address] #### 08753-6, 2088-06 #### [facility] ([id number]) [address], [address] [place] [address] Cholesterol in HDL [Mass/Vol] 36 mg/dL Low >39 [facility] Comment on above: Result Comment: HDL <40 mg/dL - High Risk HDL > or = 40mg/dL- Desirable HDL >60 mg/dL - Negative Risk Performed By: #### C MARQUES, CMP, 33624-4, THYR #### [facility] ([id number]) [address] [place] [address] #### 62125-0, 2088-06 #### [facility] ([id number]) [address] [place] [address], [address] [place] [address] Cholesterol in VLDL [Mass/Vol] 99 mg/dL High 0-30 [facility] Comment on above: Performed By: #### C MARQUES, CMP, 57462-1, THYR #### [facility] ([id number]) [address] [place] [address] #### 90805-8, 2088-06 #### [facility] ([id number]) [address] [facility], [address] [place] [address] CHOLESTEROL:HDL 9.1 High 1.0-5.0 [facility] Comment on above: Performed By: #### C MARQUES, CMP, 58001-5, THYR #### [facility] ([id number]) [address] [place] [address] #### 72598-6, 2088-06 #### [facility] ([id number]) [address], [address] [place] [address] LDL (CALC) RESULT NOT REPORTED DUE TO HIGH TRIGLYCERIDE Normal <130 [facility] Comment on above: Performed By: #### C BCA, CMP, 06445-3, THYR #### [facility] ([id number]) [address] [place] [address] [place] [address] #### 51782-8, 2088-06 #### [facility] ([id number]) [address] [facility], [address] [place] [address] Triglyceride [Mass/Vol] 494 mg/dL High 27-150 [facility] Comment on above: Performed By: #### C BCA, CMP, 47639-0, THYR #### [facility] ([id number]) [address] [facility] [facility], [place] [address] #### 60458-0, 2088-06 #### [facility] ([id number]) [address] [facility], [address] [place] [address] MR BRAIN WO CONTon MR BRAIN WO [...] Mccall MD on 07/23/2023 11:51 AM Normal [facility] THYROID PROFILEon 07-23-2023 Free T4 [Mass/Vol] 1.10 ng/dL Normal 0.61-1.60 [facility] Comment on above: Performed By: #### C BCA, CMP, 58520-5, THYR #### [facility] ([id number]) [address] [place] [address] #### 16261-2, 2088-06 #### [facility] ([id number]) [address] [place] [address], [address] [place] [address] TSH 2.88 uIU/mL Normal 0.49-4.67 [facility] Comment on above: Performed By: #### C MARQUES, CMP, 35622-3, THYR #### [facility] ([id number]) [address] [place] [address]17 #### 05740-1, 2088-06 #### [facility] ([id number]) [address] [place] [address], [address] [place] [address] TROPONIN Ion 07-23-2023 Troponin I.cardiac [Mass/Vol] 0.01 ng/mL Normal 0.00-0.04 [facility] Comment on above: Performed By: #### C BCA, CMP, 23049-1, THYR #### [facility] ([id number]) [address] [place] [address] #### 31309-4, 2088-06 #### [facility] ([id number]) [address] [place] [address], [address] [place] [address] Troponin I.cardiac [Mass/Vol] 0.03 ng/mL Normal 0.00-0.04 [facility] Comment on above: Performed By: #### C BCA, CMP, 45904-1, THYR #### [facility] ([id number]) [address] [place] [address] #### 98095-6, 2088-06 #### [facility] ([id number]) [address] [facility], [address] [place] [address] A1C HEMOGLOBINon 05-06-2023 HbA1c (Bld) [Mass fraction] 6.8 % [employer] Other Glucose - FINGER STICKon Glucose [Mass/Vol] 177 mg/dL [employer] Other HbA1c (Bld) [Mass fraction]o n 05-06-2023 A1C HEMOGLOBIN [employer] Other A1C HEMOGLOBINon 10-15-2021 HbA1c (Bld) [Mass fraction] 8 % [employer] Other Glucose - FINGER [employer]on Glucose [Mass/Vol] 290 mg/dL [employer] Other HbA1c (Bld) [Mass fraction]o n 10-15-2021 A1C HEMOGLOBIN [employer] Other A1C HEMOGLOBINon 07-17-2021 HbA1c (Bld) [Mass fraction] 7.2 % [employer] Other Glucose - FINGER STICKon Glucose [Mass/Vol] 194 mg/dL [employer] Other HbA1c (Bld) [Mass fraction]o n 07-17-2021 A1C HEMOGLOBIN [employer] Other Creatinine W/GFR Point of Ca reon 09-07-2019 Creatinine [Mass/Vol] 1.95 mg/dL High 0.51 - 1.19 mg/dL [facility] [place] GFR Non- 27 mL/min Low >60 [facility] [place] GFR/1.73 sq M predicted among non-blacks MDRD (S/P/Bld) [Vol rate/Area] 32 mL/min/{1.73_m2} Low >60 [facility], [place] GFR/1.73 sq M predicted among non-blacks MDRD (S/P/Bld) [Vol rate/Area] [place], [place] Comment on above: Average GFR for 50-5 9 years old: 93 mL/min/1.73sq m Chronic Kidney Disease: <60 mL/min/1.73sq m Kidney failure: <15 mL/min/1.73sq m eGFR calculated using average adult body mass. Additional eGFR calculator available at: http://www.[employer]/multiple_crcl_2012.htm OPERATIVE REPORTon 0 OPERATIVE REPORT [address] [address] OPERATIVE REPORT PATIENT NAME: OLY HARRELL : 1960 MED REC NO: [id number] ROOM: ACCOUNT NO: [id number] ADMIT DATE: 09/07/2019 PROVIDER: Martir Bang DATE [...] good condition. 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- Counseled patient that she needs [...] or sooner ifnew symptoms develop.Marla Juares MD [facility] PROGRESSon 10-04-2017 Protein mass conc HNO ID: [id number] thor: Marla Webb: (none)Author Type: PhysicianType: Progress NotesFiled: 10/04/2017 8:20 PMNote Text:Proliferative Diabetic Retinopathy, Both Eyes:- 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- Counseled patient that she needs [...] or sooner ifnew symptoms develop.Marla Juares MD [facility] PROGRESSon 08-30-2017 Protein mass conc HNO ID: [id number] thor: Marla Webb: (none)Author Type: PhysicianType: Progress NotesFiled: 08/30/2017 1:01 PMNote Text:Proliferative Diabetic Retinopathy, Both Eyes:- 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- Counseled patient that she needs [...] or sooner ifnew symptoms develop.Marla Juares MD [facility] HOSPon 04-02-2017 HOSP Office Visit OPHT (OPHTLN) ----OLY HARRELL ([id number]) 1960 FDate Time Provider Jqlerzqflb66/6/17 12:00 PM ALAYNA GUTIERREZ During your visit [...] of its relevantcomponents.Samantha Mancusoing Provider: ALAYNA GUTIERREZ [[id number]]Allergies As of Date: 04/02/2017 Noted Allergy ReactionDEMEROL (MEPERIDINE (PF)) 01/30/2014 10 - AnaphylaxisMORPHINE 01/30/2014 10 - AnaphylaxisDate Reviewed: 01/01/2017Reviewed by: Inge Munoz (Tech) - Fully AssessedReason for Visit: Post-Op Visit [1236] Cmt: s/p lid repair 12/23/16Primary Visit Diagnosis:Ptosis of both eyelids [H02.403]Order(s):IOP MEASUREMENT [9300950] Order #: [id number]: 1Prescriptions as of 04/02/2017 Sig: NEOMYCIN 3.5 [...] by mouth. Disc: Discontinued by PatientEncounter Number: [id number] Status:Closed by ALAYNA GUTIERREZ MD on 04/02/17 [facility] PROGRESSon 04-01-2017 Protein mass conc HNO ID: [id number] thor: Alayna GutierrezSer: (none)Author Type: PhysicianType: Progress [...] with all of its relevantcomponents.Alayna Gutierrez MD [facility] ANES Jaylen 12-23-2016 ANES POST HNO ID: [id number] thor: Harjeet PeñalozaService: AnesthesiologyAuthor Type: PhysicianType: Anesthesia [...] 23, 2016 : 2:03 PM PAGER/CONTACT #: Psychiatric ANES PREOPon 12-23-2016 ANES PREOP HNO ID: [id number] thor: El Corteservice: (none)Author Type: PhysicianType: Anesthesia PreOpFiled: 12/23/2016 9:14 AMNote Text:REGIONAL ANESTHESIOLOGY PREOPERATIVE ASSESSMENTPATIENT NAME: lOy HarrellMRN: [id number]: 1960Surgeon(s):Alayna HwangProcedure(s) (LRB):REPAIR BLEPHAROPTOSIS; (TARSO) LEVATOR RESECTION OR ADVANCEMENT, EXTERNALAPPROACH (Bilateral)Estimated body mass index is 44.81 kg/(m2) as calculated from thefollowing: Height as of 12/02/16: 157.5 cm (5' 2 ). Weight as of this encounter: 111.1 kg (245 lb).Most recent hematocrit and potassium results:Hematocrit 35.7 12/02/2016Potassium 4.0 12/02/2016Vitals: 12/23/385404IU: 154/91Pulse: 102Resp: 18Temp: 36.3 ?C (97.3 ?F)TempSrc: [...] LEFT EYENo date: COLONOSCOP W/ OR W/O [facility] SPEC Comment: ColonoscopyNo date: EGD [...] MDDATE: December 23, 2016TIME: 9:14 AM Normal [facility] OPERATIVE NOon 12-23-2016 OPERATIVE NO HNO ID: [id number] thor: Alayna GutierrezService: OphthalmologyAuthor Type: PhysicianType: Operative ReportFiled: 12/23/2016 10:37 AMNote Text: OPERATIVE/PROCEDURE REPORTLOG ID: [id number]/Procedure Date: 12/23/2016Incision/Procedure Start Time: 9:50 AMIncision Close/Procedure End Time: 10:35 AMSurgeon(s)/Proceduralist(s ) and Block Handler(s):Surgeon(s) and Role: * Alayna Gutierrez - PrimaryPre-Op/Pre-Procedure [...] Shay: December 23, 2016 : PAGER/CONTACT #: Psychiatric PT EDon 12-23-2016 PT ED HNO ID: [id number] thor: Patti (Rn) MELANIE Krishnanervice: NursingAuthor Type: Registered NurseType: Patient EducationFiled: 12/23/2016 11:09 AMNote Text:RUIDOSO DOWNS AMBULATORY SURGERY PATIENT EDUCATION NOTEREADINESS TO LEARNCOGNITIVE [...] RN: NoElectronically Signed By Patti Krishnan RN Psychiatric Vital Signs Date Time Vital Sign Value Performing Clinician Facility 09-30-2023 14:30-0400 Body height 152.4 cm [facility] 09-30-2023 14:30-0400 Body mass index (BMI) [Ratio] 44.5 kg/m2 [facility] 09-30-2023 14:30-0400 Body weight 103.41 kg [facility] 09-30-2023 14:30-0400 Diastolic blood pressure 104 mm[Hg] [facility] 09-30-2023 14:30-0400 Heart rate 84 /min [facility] 09-30-2023 14:30-0400 Respiratory rate 18 /min [facility] 09-30-2023 14:30-0400 SaO2% (BldA) [Mass fraction] 96 % [facility] 09-30-2023 14:30-0400 Systolic blood pressure 195 mm[Hg] [facility] 09-10-2023 12:35-0400 Body height 154.9 cm Yarelis Preciado MD Work Phone: [facility] 09-10-2023 12:35-0400 Body mass index (BMI) [Ratio] 42.89 kg/m2 Yarelis Preciado MD Work Phone: [facility] 09-10-2023 12:35-0400 Body weight 102.97 kg Yarelis Preciado MD Work Phone: [facility] 09-10-2023 12:35-0400 Diastolic blood pressure 72 mm[Hg] Yarelis Preciado MD Work Phone: [facility] 09-10-2023 12:35-0400 Heart rate 70 /min Yarelis Preciado MD Work Phone: [facility] 09-10-2023 12:35-0400 Systolic blood pressure 140 mm[Hg] Yarelis Preciado MD Work Phone: [facility] 07-30-2023 10:06-0500 Body height 157.5 cm Christophe Irwin MD Work Phone: [facility] 07-30-2023 10:06-0500 Body mass index (BMI) [Ratio] 40.42 kg/m2 Christophe Irwin MD Work Phone: [facility] 07-30-2023 10:06-0500 Body temperature 97.5 [degF] Christophe Irwin MD Work Phone: [facility] 07-30-2023 10:06-0500 Body weight 100.25 kg Christophe Irwin MD Work Phone: [facility] 07-30-2023 10:06-0500 Diastolic blood pressure 78 mm[Hg] Christophe Irwin MD Work Phone: [facility] 07-30-2023 10:06-0500 Heart rate 94 /min Christophe Irwin MD Work Phone: [facility] 07-30-2023 10:06-0500 SaO2% (BldA) [Mass fraction] 99 % Christophe Irwin MD Work Phone: [facility] 07-30-2023 10:06-0500 Systolic blood pressure 140 mm[Hg] Christophe Irwin MD Work Phone: [facility] 05-06-2023 13:45-0500 Body height 160.66 cm Nancy Stevens Other [employer] Other 05-06-2023 13:45-0500 Body mass index (BMI) [Ratio] 39.68 kg/m2 Tondra Mapus Other [employer] Other 05-06-2023 13:45-0500 Body weight 102.42 kg Tondra Mapus Other [employer] Other 05-06-2023 13:45-0500 Diastolic blood pressure 77 mm[Hg] Tondra Mapus Other [employer] Other 05-06-2023 13:45-0500 Respiratory rate 18 /min Tondra Mapus Other [employer] Other 05-06-2023 13:45-0500 SaO2% (BldA) [Mass fraction] 100 % Tondra Mapus Other [employer] Other 05-06-2023 13:45-0500 Systolic blood pressure 187 mm[Hg] Tondra Mapus Other [employer] Other 04-14-2022 15:00-0400 Body height 160.66 cm [facility] Other [employer] Other 04-14-2022 15:00-0400 Body mass index (BMI) [Ratio] 39.92 kg/m2 [employer] Other [employer] Other 04-14-2022 15:00-0400 Body temperature 97.3 [degF] [employer] Other [employer] Other 04-14-2022 15:00-0400 Body weight 103.06 kg [employer] Other [employer] Other 04-14-2022 15:00-0400 Diastolic blood pressure 110 mm[Hg] Fadumo Bairess Other [employer] Other 04-14-2022 15:00-0400 Respiratory rate 20 /min Fadumo Bairess Other [employer] Other 04-14-2022 15:00-0400 SaO2% (BldA) [Mass fraction] 98 % Fadumo Bairess Other [employer] Other 04-14-2022 15:00-0400 Systolic blood pressure 170 mm[Hg] Fadumo Bairess Other [employer] Other 10-15-2021 17:15-0400 Body height 160.66 cm Tondra Mapus Other [employer] Other 10-15-2021 17:15-0400 Body mass index (BMI) [Ratio] 40.59 kg/m2 Tondra Mapus Other [employer] Other 10-15-2021 17:15-0400 Body weight 104.78 kg Tondra Mapus Other [employer] Other 10-15-2021 17:15-0400 Diastolic blood pressure 84 mm[Hg] Tondra Mapus Other [employer] Other 10-15-2021 17:15-0400 Respiratory rate 20 /min Tondra Mapus Other [employer] Other 10-15-2021 17:15-0400 SaO2% (BldA) [Mass fraction] 95 % Tondra Mapus Other [employer] Other 10-15-2021 17:15-0400 Systolic blood pressure 147 mm[Hg] Tondra Mapus Other [employer] Other 07-17-2021 15:15-0500 Body height 160.66 cm Tondra Mapus Other [employer] Other 07-17-2021 15:15-0500 Body mass index (BMI) [Ratio] 41.12 kg/m2 Tondra Mapus Other [employer] Other 07-17-2021 15:15-0500 Body weight 106.14 kg Tondra Mapus Other [employer] Other 07-17-2021 15:15-0500 Diastolic blood pressure 84 mm[Hg] Tondra Mapus Other [employer] Other 07-17-2021 15:15-0500 Respiratory rate 20 /min Tondra Mapus Other [employer] Other 07-17-2021 15:15-0500 SaO2% (BldA) [Mass fraction] 97 % Tondra Mapus Other [employer] Other 07-17-2021 15:15-0500 Systolic blood pressure 135 mm[Hg] Tondra Mapus Other [employer] Other 09-07-2019 12:00-0400 Pulse Oximetry 97 % [facility] , [place] 09-07-2019 11:45-0400 Body Temperature 97.5 [degF] [facility] [place] 09-07-2019 11:45-0400 BP Diastolic 82 mm[Hg] Martir Darden [facility] , [place] 09-07-2019 11:45-0400 BP Systolic 150 mm[Hg] Martir Darden [facility] , [place] 09-07-2019 11:45-0400 Pulse (Heart Rate) 94 /min Martir Darden [facility], [place] 09-07-2019 11:45-0400 Respiratory Rate 16 /min Martir Darden [facility] [place] 09-07-2019 08:38-0400 BMI (Body Mass Index) 45.54 kg/m2 aMrtir Darden [facility], [place] 09-07-2019 08:38-0400 Body weight 112.95 kg [facility] , [place] 09-07-2019 08:38-0400 Height 157.5 cm [facility] [place] [place] Encounters Encounter Date Encounter Type Care Provider Facility Start: 12-01-2023 End: 12-01-2023 ambulatory [facility] Start: 12-01-2023 End: 12-01-2023 Encounter for other preprocedural examination [facility] Start: 11-20-2023 End: 11-20-2023 Emergency department patient visit CHRISTOPHE IRWIN [facility] Start: 10-29-2023 End: 10-29-2023 ambulatory CHRISTOPHE IRWIN Not Available Start: 09-30-2023 Refill Anyi Delgado APRN-BUTTON [employer]ER Work Phone: [facility] Start: 09-30-2023 End: 09-30-2023 ambulatory [facility] Work Phone: Start: 09-30-2023 End: 09-30-2023 Patient encounter procedure Counts Include [facility] Work Phone: Start: 09-29-2023 End: 09-29-2023 ambulatory CHRISTOPHE IRWIN Not Available Start: 09-17-2023 Telephone encounter Marcelaleslie Schafer CMA [facility] Comment on above: Request for Surgical Clearance Start: 09-13-2023 Telephone encounter Tonya Mustafa [facility] Comment on above: [employer] Start: 09-10-2023 End: 09-10-2023 ambulatory YARELIS PRECIADO [facility] Start: 09-10-2023 End: 09-10-2023 Office outpatient visit 25 minutes Yarelis Preciado MD Work Phone: [facility] Comment on above: Sequelae, post-strok e (Primary Dx); Seizure ([facility]); Hypomagnesemia; Colitis; Abnormal brain MRI; Poorly controlled diabetes mellitus ([facility]); CKD stage 3 secondary to diabetes ([facility]); Type 2 diabetes mellitus with complication, with long-term current use of insulin ([facility]); Gait instability; PBA (pseudobulbar affect) Start: 07-30-2023 Bamboo flowsheet Christophe Irwin MD Work Phone: [facility] Start: 07-30-2023 Bambo flowsheet Christophe Irwin MD Work Phone: [facility] Start: 07-30-2023 End: 07-30-2023 ambulatory CHRISTOPHE IRWIN Not Available Start: 07-30-2023 End: 07-30-2023 Preoperative state Christophe Irwin MD Work Phone: [facility] Start: 07-30-2023 End: 07-30-2023 Transitional care manage srvc 7 day discharge Christophe Irwin MD Work Phone: [facility] Comment on above: 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 (CMS/HCC) (Primary Dx); Preoperative clearance; Bunion of right foot; Essential hypertension, benign (CMS/HCC); Type 2 diabetes mellitus with microalbuminuria, with long-term current use of insulin ([facility]/HCC) Start: 07-26-2023 End: 07-27-2023 ambulatory ANYI DELGADO [facility] Start: 07-23-2023 End: 07-27-2023 ambulatory CHRISTOPHE IRWIN [facility] Start: 07-23-2023 End: 07-27-2023 ambulatory ANYI DELGADO [facility] Start: 07-23-2023 End: 07-27-2023 Emergency department patient visit ANDREW SHARIF [facility] Start: 07-23-2023 End: 07-26-2023 Evaluation and management of inpatient CHRISTOPHE IRWIN [facility] Start: 07-08-2023 End: 07-08-2023 ambulatory Tondra Mapus Other [employer] Other Start: 07-08-2023 Telephone encounter Tondra Mapus [facility] Start: 05-18-2023 End: 05-18-2023 ambulatory Tondra Mapus Other [employer] Other Start: 05-18-2023 Telephone encounter Tondra Mapus [facility] Start: 05-06-2023 (DM) Diabetes Tondra Mapus [facility] Start: 05-06-2023 End: 05-07-2023 ambulatory Tondra K Mapus [employer] Other Start: 04-29-2023 End: 04-29-2023 ambulatory Tondra Mapus Other [employer] Other Start: 04-29-2023 Telephone encounter Tondra Mapus [facility] Start: 02-24-2023 End: 02-24-2023 ambulatory Tondra Mapus Other [employer] Other Start: 02-24-2023 Telephone encounter Tondra Mapus [facility] Start: 11-09-2022 ambulatory MONET MARTEL Faci lity:H1 Start: 11-05-2022 End: 11-05-2022 ambulatory Tondra Mapus Other [employer] Other Start: 11-05-2022 Telephone encounter Tondra Mapus [facility] Start: 10-30-2022 End: 10-30-2022 ambulatory Tondra Mapus Other [employer] Other Start: 10-30-2022 Telephone encounter Tondra Mapus [facility] Start: 10-12-2022 End: 10-13-[address] CHRISTOPHE IRWIN Facility:H1 Start: 09-14-2022 End: 09-15-2022 ambulatory ISABELLA COSTAEN Facility:H1 Start: 08-31-2022 End: 09-01-2022 ambulatory ISABELLA LETICIA Facility:H1 Start: 08-27-2022 End: 08-27-2022 ambulatory Tondra Mapus Other [employer] Other Start: 08-27-2022 Telephone encounter Tondra Mapus [facility] Start: 08-18-2022 End: 08-19-[address] CHRISTOPHE IRWIN Facility:H1 Start: 08-10-2022 End: 08-11-[address] CHRISTOPHE IRWIN Facility:H1 Start: 07-20-2022 End: 07-21-[address] CHRISTOPHE IRWIN Facility:H1 Start: 06-26-2022 End: 06-27-[address] CHRISTOPHE IRWIN Facility:H1 Start: 06-18-2022 End: 06-18-2022 ambulatory Tondra Mapus Other [employer] Other Start: 06-18-2022 Telephone encounter Tondra Mapus [facility] Start: 06-15-2022 End: 06-15-2022 ambulatory Tondra Mapus Other [employer] Other Start: 06-15-2022 Telephone encounter Tondra Mapus Sudhakar [facility] Start: 06-09-2022 End: 06-10-2022 ambulatory ISABELLADONTAE COSTAEN Facility:H1 Start: 05-11-2022 End: 05-11-2022 ambulatory UNKNOWN PROVIDER Facility:[facility] Start: 05-07-2022 End: 05-07-2022 ambulatory Tondra Mapus Other [employer] Other Start: 05-07-2022 Telephone encounter Tondra Mapus [employer] [facility] Start: 04-15-2022 End: 04-15-2022 ambulatory Aziz Bakhous Other [employer] Other Start: 04-15-2022 Telephone encounter Aziz Bakhous [employer] [facility] Start: 04-14-2022 End: 04-14-2022 ambulatory Aziz Bakhous Other [employer] Other Start: 04-14-2022 Office outpatient ne w 30 minutes Aziz Bakhous [facility] Start: 04-01-2022 End: 04-02-[address] AMANDA HOSKINS Facility:H1 Start: 02-18-2022 End: 02-19-[address] AMANDA HOSKINS Facility:H1 Start: 01-01-2022 End: 01-01-2022 ambulatory Tondra Mapus Other [employer] Other Start: 01-01-2022 Telephone encounter Tondra Mapus [facility] Start: 10-15-2021 (DM) Diabetes Tondra Mapus Counts Include [facility] Start: 10-15-2021 End: 10-15-2021 ambulatory Tondra Mapus Other [employer] Other Start: 10-15-2021 Telephone encounter Tondra Mapus [facility] Start: 10-07-2021 End: 10-07-2021 ambulatory Tondra Mapus Other [employer] Other Start: 10-07-2021 Telephone encounter Tondra Mapus [facility] Start: 08-25-2021 End: 08-25-2021 ambulatory Tondra Mapus Other [employer] Other Start: 08-25-2021 Telephone encounter Nancy Stevens [facility] Start: 07-17-2021 (DM) Diabetes Tondra Rodney [facility] Start: 07-17-2021 End: 07-17-2021 ambulatory Tondra Rogerus Other [employer] Other Start: 09-07-2019 End: 09-07-2019 Patient encounter procedure MARTIR BANG [facility] Start: 09-07-2019 End: 09-07-2019 Subsequent hospital visit by physician Martir Bang Work Phone: [facility] Start: 01-21-2018 End: 01-24-2018 Patient encounter [facility] Start: 11-01-2017 End: 11-02-2017 Patient encounter [facility] Start: 10-04-2017 End: 10-05-2017 Patient encounter [facility] Start: 08-30-2017 End: 09-02-2017 Patient encounter [facility] Start: 04-02-2017 End: 04-02-2017 Patient encounter [facility] Start: 12-23-2016 End: 12-23-2016 Ambulatory [facility] Procedures Date Procedure Procedure Detail Performing [...] routine ecg w/le ast 12 lds w/i&r MATRIR BANG Start: 09-07-2019 CREATININE W/GFR POI NT [...] 09-22-2024 Tobacco Screening Tobacco Screening [facility] Start: 09-09-2024 Adult BMI Screening Adult BMI Screen ing [facility] Start: 09-09-2024 Depression Screening Depression Scre ening [facility] Start: 09-09-2024 Tobacco Screening Tobacco Screening [facility] Start: 05-13-2024 Urine screening for protein Urine Microalbumin [facility] Start: 02-25-2024 End: 02-25-2024 Patient encounter procedure 02/25/2024 1:00 PM EDT Office Visit [facility] [address] [place] [phone] Yarelis Preciado MD [address] [place] [address], [address] [place] [phone] [facility] Start: 10-29-2023 End: 10-29-2023 Patient encounter procedure 10/29/2023 10:15 AM EDT [facility] [address] [place] [place] [phone] Christophe Irwin MD [address] [place] [phone] [facility] Start: 07-30-2023 End: 07-30-2023 Patient encounter procedure 07/30/2023 10:15 AM EST Office Visit [facility] [address] [place] [phone] Christophe Irwin MD [address] [place] [phone] Arrived [facility] Comment on above: Arrived Start: 02-26-2023 Influenza vaccination Influenza Vacc ine (#1) [facility] Start: 01-29-2023 Hemoglobin A1c measurement Diabetes: Hemoglobin A1C [facility] Start: 12-19-2022 Adult BMI Follow Up Plan Adult BMI Follow Up Plan [facility] Start: 02-25-2022 DTaP,Tdap and Td Vaccines (2 - Td or Tdap) DTaP,Tdap and Td Vaccines (2 - Td or Tdap) [facility] Start: 03-17-2021 Screening for malign ant neoplasm of colon Colonoscopy [facility] Start: 05-10-2019 Screening for malign ant neoplasm of breast Mammogram [facility] Start: 05-06-2019 Administration of varicella zoster vaccine Zoster (Shingles) Vaccine (2 of 2) [facility] Start: 02-26-2019 Influenza vaccination Flu vaccine (# 1) [place], [place] Start: 1992 Screening for malign ant neoplasm of cervix [facility] Start: 10-27-1983 Screening for malign ant neoplasm of cervix Pap Smear [facility] Start: 1980 Diabetic foot examination Diabetic Foot Exam [facility] Start: 1972 Glaucoma screening Diabetes: R etinopathy Screening [facility] Start: 1962 Creatinine monitoring Creatinine mon itoring [place], [place] Start: 1962 Glaucoma screening Diabetic Op hthalmology Exam [facility] Start: 1962 Medicare Annual Well ness (AWV) Medicare Annual Wellness (AWV) [facility] Start: 1962 Potassium monitoring Potassium monit oring [place], [place] Start: 1962 Screening for malign ant neoplasm of colon [facility] Start: 1962 Tobacco Counseling Tobacco Counselin g [facility] End: 09-07-2019 BUN & Creatinine BUN & Creatinine Lab STAT One Time for 1 Occurrences starting 09/07/2019 until 09/07/2019 [place] Comment on above: One Time for 1 Occur rences starting 09/07/2019 until 09/07/2019 Comprehensive metabo lic 2000 panel - Serum or Plasma [facility] EKG 12 Lead EKG 12 Lead ECG STAT 09/07/2019 7:38 AM EDT [place] End: 09-07-2019 Electrolyte Panel Electrolyte Panel Lab STAT One Time for 1 Occurrences starting 09/07/2019 until 09/07/2019 [place] Comment on above: One Time for 1 Occur rences starting 09/07/2019 until 09/07/2019 Initiate Oxygen Ther apy Protocol Initiate Oxygen Therapy Protocol Respiratory Care Routine Daily until discontinued starting 09/07/2019 [place] Comment on above: Daily until disconti nued starting 09/07/2019 Phase I & II - meter ed glucose Phase I & II - metered glucose Point of Care Testing Routine As Needed until discontinued starting 09/07/2019 [place] Comment on above: As Needed until disc ontinued starting 09/07/2019 End: 09-07-2019 POCT [facility] Comment on above: One Time for 1 Occur rences starting 09/07/2019 until 09/07/2019 End: 09-07-2019 Pulse Oximetry Spot Check Pulse Oximetry Spot Check Respiratory Care Routine One Time for 1 Occurrences starting 09/07/2019 until 09/07/2019 [facility] Comment on above: One Time for 1 Occur rences starting 09/07/2019 until 09/07/2019 End: 09-07-2019 Urine , POCT Urine , POCT Point of Care Testing Routine One Time for 1 Occurrences starting 09/07/2019 until 09/07/2019 [facility] Comment on above: One Time for 1 Occur rences starting 09/07/2019 until 09/07/2019 [facility] Immunizations Immunization Date Immunization Notes Care Provider Fa cility 11-19-2020 COVID-19, mRNA, LNP- S, PF, 100mcg/0.5mL Dose [facility] 05-15-2020 influenza, injectabl e, quadrivalent, preservative free [facility] 05-15-2020 influenza virus vacc ine, unspecified formulation Christophe Irwin MD Work Phone: [facility] 03-28-2019 pneumococcal conjuga te vaccine, 13 valent [facility] 03-11-2019 Seasonal, quadrivale nt, recombinant, injectable influenza vaccine, preservative free [facility] 03-11-2019 zoster vaccine recombinant [facility] 03-11-2019 zoster vaccine, unspecified formulation [facility] 04-01-2015 influenza, seasonal, injectable, preservative free [facility] 04-01-2015 pneumococcal polysaccharide vaccine, 23 valent [facility] 02-26-2012 tetanus toxoid, redu jose diphtheria toxoid, and acellular pertussis vaccine, adsorbed [facility] Payers Date Payer Category Payer Medicare UHC MEDICARE [employer] D[employer]PLETE xxxxxxxxx 2019-Present xxxxxxxxx [id number] 2019 Medicare [id number] 2018 Self-pay [id number] 2017 Medicare [id number] 2016 Medicaid [id number] 2014 Medicaid MEDICAID [facility] DEPT OF JOB xxxxxxxxxxxx 2014-Present [phone] [address] [place] [address] xxxxxxxxxxxx [id number] 1962 Unknown [id number] 2.16.840.1.457336.3.579.2.1 75 1962 Unknown [id number] 2.16.840.1.951606.3.579.2.7 32 1962 Unknown [id number] 2.16.840.1.218110.3.579.2.5 93 1962 Unknown [id number] 2.16.840.1.845218.3.579.2.5 93 1962 Unknown [id number] 2.16.840.1.431682.3.579.2.5 93 1962 Unknown [id number] 2.16.840.1.957915.3.579.2.5 93 1962 Unknown [id number] 2.16.840.1.184842.3.579.2.5 93 1962 Unknown [id number] 2.16.840.1.576010.3.579.2.5 93 1962 Unknown [id number] 2.16.840.1.142478.3.579.2.5 93 1962 Unknown [id number] 2.16.840.1.016218.3.579.2.5 93 1962 Unknown [id number] 2.16.840.1.848601.3.579.2.5 93 1962 Unknown [id number] 2.16.840.1.429753.3.579.2.5 93 1962 Unknown [id number] 2.16.840.1.540520.3.579.2.5 93 1962 Unknown [id number] 2.16.840.1.269942.3.579.2.1 259 1962 Unknown [id number] 2.16.840.1.211289.3.579.2.1 259 1962 Unknown [id number] 2.16.840.1.337675.3.579.2.1 259 1962 Unknown [id number] 2.16.840.1.876980.3.579.2.1 286 1962 Unknown [id number] 2.16.840.1.793414.3.579.2.1 286 1962 Unknown [id number] 2.16.840.1.142434.3.579.2.1 286 1962 Unknown [id number] 2.16.840.1.065433.3.579.2.1 286 1962 Unknown [id number] 2.16.840.1.321640.3.579.2.1 286 1962 Unknown [id number] 2.16.840.1.357085.3.579.2.1 286 1962 Unknown [id number] 2.16.840.1.974118.3.579.2.1 286 1962 Unknown [id number] 2.16.840.1.831973.3.579.2.1 286 1962 Unknown [id number] 2.16.840.1.319740.3.579.2.1 286 1959 Medicaid [id number] Medicare Medicare [id number] Unknown [id number] 2.16.840.1.112128.3.579.2.5 31 Social History Date Type Detail Facility Start: 09-07-2019 [facility] End: 09-05-1979 History of tobacco use Current smoker [place] End: 09-05-1979 History of tobacco use Cigarette Smoker [place] Start: 09-07-2019 End: 07-23-2023 Cigarettes smoked current (pack per day) - [facility] Start: 09-07-2019 End: 07-30-2023 Alcohol intake Lifetime non-drinker (finding) [place] Start: 09-05-2019 History SDOH Alcohol Frequency 1 [place], [place] Start: 1960 Sex Assigned At Not on file [place] Start: 07-09-2023 End: 07-23-2023 Sex Assigned At [facility] Start: 12-14-2022 End: 09-30-2023 Tobacco smoking status NEIS Never smoked tobacco [facility] Start: 12-14-2022 End: 05-04-2023 Tobacco use and exposure Smokeless tobacco non-user [facility] Start: 1960 Sex Assigned At Female F [facility] Start: 05-04-2023 [facility] Start: 09-10-2023 End: 09-23-2023 Alcohol intake Ex-drinker (finding) [facility] Has the electric, ga s, oil, or water company threatened to shut off services in your home in past 12Mo No [facility] Are you now , , , , never or living with a partner? [facility] How often to you hav e a [...] - these days [OSQ] Not at all [facility] Medical Equipment Procedure Code Equipment Code Equipment Origin al Text Equipment Identifier Dates [id number], [id number] Star t: 01-16-2018 blood sugar diagnostic ([employer] [...] Date & Type Note Facility 12-01-2023 Note [place] [facility] Note Reason for cardiology [...] EDT by BE (more content not included)... [facility] 09-17-2023 Miscellaneous Notes Received a request for surgical clearance from [facility] in [place]. Office is requesting most recent office visit note and any medication instructions be faxed over to them @ [phone] by 09/23/23. Request and H&P scanned into the patient media for review. Please complete the patients last OV note and staff will fax it over along with any medication instructions you may have. Thanks. [facility] in [place]. Office called in asking if we received the surgical clearance. Ammonium Nitrate Neutralizer informed them yes. Aleksandra would like to know when they would get the form back. In below encounter is was stated they needed the form back by 09 23 23 Please advise Aleksandra [phone] Physician's surgical clearance letter was printed and faxed to [phone], along with last office visit notes. Letter corrected to state stop aspirin 24 hours prior to procedure. Corrected letter scanned into chart. Fax confirmation received. RN left voicemail for filter pulp washer, Aleksandra, to inform letter was faxed. Clinic number provided for call back with any questions. documented in this encounter [facility] 09-17-2023 Telephone encounter Note Received a request for surgical clearance from [facility] in [place]. Office is requesting most recent office visit note and any medication instructions be faxed over to them @ [phone] by 09/23/23. Request and H&P scanned into the patient media for review. Please complete the patients last OV note and staff will fax it over along with any medication instructions you may have. Thanks. [facility] 09-17-2023 Telephone encounter Note [facility] in [place]. Office called in asking if we received the surgical clearance. Ammonium Nitrate Neutralizer informed them yes. Aleksandra would like to know when they would get the form back. In below encounter is was stated they needed the form back by 09 23 23 Please advise Aleksandra [phone] [facility] 09-17-2023 Telephone encounter Note Physician's surgical clearance letter was printed and faxed to [phone], along with last office visit notes. Letter corrected to state stop aspirin 24 hours prior to procedure. Corrected letter scanned into chart. Fax confirmation received. RN left voicemail for filter pulp washer, Aleksandra, to inform letter was faxed. Clinic number provided for call back with any questions. [facility] 09-13-2023 Miscellaneous Notes Received call today 09/13/23 3:02 from [facility] who was calling to let Dr. Preciado's staff know that she is sending prior auth request for Nudexta to our clinic fax# which I provided to her. MEAGAN approved: [id number]. NUEDEXTA CAP 20-10MG is approved through 06/27/2024. documented in this encounter [facility] 09-13-2023 Telephone encounter Note Received call today 09/13/23 3:02 from [facility] who was calling to let Dr. Preciado's staff know that she is sending prior auth request for Nudexta to our clinic fax# which I provided to her. [facility] 09-13-2023 Telephone encounter Note MEAGAN approved: [id number]. [employer] CAP 20-10MG is approved through 06/27/2024. [facility] 09-10-2023 History of Presen t illness Narrative [facility] FOLLOW UP NOTE Reason [...] finding difficulties. Hospital Course at [facility] 07/23/23-07/25/23: ... 62/F with a past [...] - of note patient was admitted at [facility] in October 2022 with altered [...] History: Diagnosis Date Chronic kidney disease Diabetes ([facility]) Diabetes mellitus ([facility]) Disease of thyroid gland GERD (gastroesophageal reflux disease) Glaucoma Hyperlipemia Hypertension Incontinence Obesity Seizures ([facility]) Stroke ([facility]) Urinary urgency Past Surgical History Past Surgical History: Procedure Laterality Date APPENDECTOMY AUGMENTATION VERTEBRAL KYPHOPLASTY SPINE L1/ BIOPSY L1 N/A 12/02/2020 Performed by Bridger Vizcaino Jr., MD at [facility] BACK SURGERY BREAST BIOPSY Right 1990 BENIGN BREAST BIOPSY Right BENIGN BREAST BIOPSY BREAST SURGERY biopsy CATARACT EXTRACTION Bilateral CHOLECYSTECTOMY COLON SURGERY COLONOSCOPY N/A 03/17/2018 Performed by Santiago Cosby DO at [facility] CYSTOSCOPY EGD Left Lateral 10/17/2020 Performed by Santiago Cosby DO at [facility] EGD N/A 03/17/2018 Performed by Santiago Cosby DO at [facility] ESOPHAGOGASTRODUODENOSCOPY EYE SURGERY FOOT SURGERY Right FOOT [...] min Stress: No Stress Concern Present (07/23/2023) [facility] - Occupational Stress Questionnaire Feeling of Stress : Not at all Social Connections: Moderately Integrated (07/23/2023) Social Connection and Isolation Panel [NHANES] Frequency of Communication with Friends and Family: Three times a week Frequency of Social Gatherings with Friends and Family: Three times a week Attends Bahai Services: More than 4 times per year [...] complication, with long-term current use of insulin ([facility]) 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 ([facility]) Morbid obesity ([facility]) CKD stage 3 secondary to diabetes ([facility]) Hypomagnesemia Non-intractable vomiting Abdominal pain Coffee ground emesis Hypertension Hyperlipemia Glaucoma GERD (gastroesophageal reflux disease) Disease of thyroid gland Urinary urgency Closed fracture of first lumbar vertebra ([facility]) Stroke ([facility]) Intractable back pain Pathological fracture of lumbar vertebra due to secondary osteoporosis ([facility]) Age-related osteoporosis with current pathological fracture Vitamin D deficiency Altered mental status Seizures ([facility]) Seizure-like activity ([facility]) Mental status change resolved Recurrent episodes of unresponsiveness Seizure ([facility]) Hypokalemia Right thalamic infarction ([facility]) Poorly controlled diabetes mellitus ([facility]) Sequelae, post-stroke Gait instability Right foot drop Hyperlipidemia Asymptomatic bilateral carotid artery stenosis Delirium Colitis Sepsis ([facility]) Left-sided weakness History of stroke History of seizure Diarrhea Hypertensive encephalopathy Abnormal brain MRI RUE weakness CVA (cerebral vascular accident) ([facility]) Stroke ([facility]) Status post, lacunar stroke--> left periventricular ischemic [...] lability and mood disorders. Follow-up regularly with rn registry, elastic cutter and other specialists. Follow Up: 3 months. Yarelis Preciado MD Vascular Neurologist [facility] # [phone] Urgent Stroke Calls [phone](ACCESS) I have personally participated in the care of this patient. I have reviewed all pertinent clinical information, including history, physical exam, investigation results and plan. I spent 40 minutes caring for this patient, and more than 50% of that time was spent on counseling the patient/insurance executive/care team and coordinating care. Important Notice: This note was created with the assistance of a speech recognition program. While intending to generate a timely document that accurately reflects the content of the encounter, no guarantee can be provided that every grammatical or spelling mistake has been or will be identified or corrected. Thank you for your understanding. documented in this encounter [facility] 07-30-2023 History of Presen t [...] clearance from neurology. documented in this encounter [facility] 07-08-2023 Evaluation note Encounter Date Diagnosis Assessment Notes Jun, Diabetes mellitus with renal manifestations, uncontrolled (ICD-10 - E11.29) [employer] Other 11-09-2023 Evaluation note* Encounter Date Diagnosis Assessment Notes Treatment Notes Treatment Clinical Notes Apr, Insulin long-term use (ICD-10 - Z79.4) Apr, Type 2 diabetes mellitus with diabetic chronic kidney disease (ICD-10 - E11.22) 1. Controlled, Type 2 diabetes A1c 6.8%. 2. Blood glucose levels improved. According to [employer] 2 cgm download 04/16/23-04/29/23: Avg glucose 157. [...] addressed- pt. will have paperwork sent from [employer] for diabetic shoes. She has history of [...] S91.301A) keep f/u with Dr. Martel Wednesday05/10/23 [employer] Other 05-05-2023 Evaluation note* Encounter Date Diagnosis Assessment Notes Treatment Notes Treatment Clinical Notes October, Hyperlipidemia (ICD-10 - E78.5) [employer] Other 12-14-2022 NotePROCEDURE: XR FOOT RT MIN [...] Electronically authenticated by: AMANDA HOSKINS Date: 2022-06-10 09:23[facility]10-18-2022 Evaluation note* Encounter Date Diagnosis Assessment [...] current with her PCP for hyperlipidemia control [employer] Other 10-05-2022 NotePROCEDURE: XR ANKLE RT MIN [...] Electronically authenticated by: AMANDA HOSKINS Date: 2022-04-01 10:53[facility]08-25-2022 NotePROCEDURE: XR ANKLE LT MIN 3 [...] Electronically authenticated by: AMANDA HOSKINS Date: 2022-02-19 08:07[facility]08-25-2022 NotePROCEDURE: XR FOOT RT MIN 3 [...] Electronically authenticated by: AMANDA HOSKINS Date: 2022-02-19 08:04[facility]07-07-2022 Evaluation note* Encounter Date Diagnosis Assessment Notes Treatment Notes Treatment Clinical Notes Dec, Diabetes mellitus with renal manifestations, uncontrolled (ICD-10 - E11.29) [employer] Other 04-20-2022 Evaluation note* Encounter Date Diagnosis Assessment Notes Treatment Notes Treatment Clinical Notes Sep, Insulin long-term use (ICD-10 - Z79.4) Sep, Type 2 diabetes mellitus with diabetic chronic kidney disease (ICD-10 - E11.22) 1. Uncontrolled, Type 2 diabetes A1c 8%. 2. Blood glucose levels according to [employer] 2 cgm download 09/29/21-10/12/21: Avg glucose 188. [...] addressed- pt. will have paperwork sent from [employer] for diabetic shoes. 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 Donaldson no longer practicing- recommend referral to [facility] Sep, BMI 40.0-44.9, adult (ICD-10 - Z68.41) Deciphering the nutrition facts label material was published [employer] Other 01-20-2022 Evaluation note* Encounter Date Diagnosis [...] addressed- pt. will have paperwork sent from [employer] for diabetic shoes. She has history of [...] ml/min (ICD-10 - N18.3) Keep f/u with surfacing machine operator. Jun, BMI 40.0-44.9, adult (ICD-10 - Z68.41) Deciphering the nutrition facts label material was published [employer] Other Chief complaint+Reason for visit Narrative* Chief Complaint penelope reader Reason for Visit Diabetes Dietary counseling and surveillance Hyperlipidemia Hypertension [facility] Work Phone: Evaluation noteNo InformationNort EventBug Other Evaluation note* Diagnosis 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 (CMS/HCC)- Primary Preoperative clearance Unspecified pre-operative examination Bunion of right foot Bunion Essential hypertension, benign (CMS/HCC) Essential hypertension, benign Type 2 diabetes mellitus with microalbuminuria, with long-term current use of insulin ([facility]) documented in this encounter [facility] HealthcareEvaluation noteNo assessment information availableAshtabula [facility] Work Phone: Evaluation note* Diagnosis Sequelae, post-stroke- Primary Seizure ([facility]) Other convulsions Hypomagnesemia Disorders of magnesium metabolism Colitis Other and unspecified noninfectious gastroenteritis and colitis Abnormal brain MRI Nonspecific (abnormal) findings on radiological and other examination of skull and head Poorly controlled diabetes mellitus ([facility]) Type II or unspecified type diabetes mellitus without mention of complication, not stated as uncontrolled CKD stage 3 secondary to diabetes ([facility]) Type 2 diabetes mellitus with complication, with long-term current use of insulin ([facility]) Gait instability Abnormality of gait PBA (pseudobulbar affect) 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 [facility] Diagnosis Onset Date Resolution Status Diabetes acute Dietary counseling and surveillance acute Hyperlipidemia acute Hypertension acute [facility] Work Phone: History general Narrative - Reported* [...] 2020 Hospitalization History Seizures-[facility] 05/2020 [employer] Other History general Narrative - Reported* Type Description Date Medical History Diabetes Medical History Hypertension Medical History [facility] Medical History Chronic pelvic pain Medical History CRF stage 3 Medical History LEFT ANKLE FRACTURE WITH SURGICA L REPAIR Medical History RIGHT FOOT ABSCESS Medical History Seizures Medical History INSULIN INTERMEDIATE USE Medical History HYPERLIPIDEMIA Medical History TYPE [...] 2020 Hospitalization History Seizures-[facility] 05/2020 [employer] Other History general Narrative - Reported* Type Description Date Medical History Diabetes Medical History Hypertension Medical History [facility] Medical History Chronic pelvic pain Medical History CRF stage 3 Medical History LEFT ANKLE FRACTURE WITH SURGICA L REPAIR Medical History RIGHT FOOT ABSCESS Medical History Seizures Medical History 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 Medical History HYPERLIPIDEMIA Medical History TYPE [...] 2020 Hospitalization History Seizures-[facility] 05/2020 [employer] Other InstructionsNot on filedocumented in this encounter [employer] SystemInstructionsNot on filedocumented in this encounter [facility] SystemInstructionsNot on filedocumented in this encounter [facility] SystemInstructionsNot on filedocumented in this encounter [facility] SystemReason for referral (narrative)* Consultation (Routine) - Pending Review Specialty Diagnoses / Procedures Referred By Jade leblanc Referred To Contact Behavioral Health Diagnoses Sequelae, post-stroke PBA (pseudobulbar affect) Yarelis Preciado MD [address] [place] [address], [address] [phone] Awa Atkinson, CONTROL PANEL ASSEMBLER-[facility] [address] [place] [address] Referral ID Status Reason Start Date Expiration Date Visits Requested Visits Authorized [id number] Pending Review Specialty Services Required 09/10/2023 09/09/2024 1 1 * Medication Prior Authorization - Pending Review Specialty Diagnoses / Procedures Referred By Jade leblanc Referred To Contact Diagnoses Sequelae, post-stroke PBA (pseudobulbar affect) Yarelis Preciado MD [address] [place] [address], [address] [phone] Referral ID Status Reason Start Date Expiration Date V isits Requested Visits Authorized [id number] Pending Review 1 1 [facility] Summary Purpose Family History No Family History Records FoundNo Family History Records FoundNo Family History Records FoundNo Family History Records FoundNo Family History Records FoundNo Family History Records FoundNo Family History Records FoundNo Family History Records FoundNo Family History Records Found Advance Directives No Advanced Directives Records FoundDocuments on File Type Date 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 Advance Directives and Living Will Power of Glass Etcher Latest Code Status on File Code Status [...] section and content) DATE CREATED AUTHOR 12/22/2017 [facility] DATE CREATED AUTHOR AUTHOR'S ORGANIZ ATION 01/24/2018 [facility] DATE CREATED AUTHOR AUTHOR'S ORGANIZ ATION 09/14/2019 [facility] DATE CREATED AUTHOR AUTHOR'S ORGANIZ ATION 05/11/2022 [facility] DATE CREATED AUTHOR AUTHOR'S ORGANIZ ATION 11/11/2022 [facility] DATE CREATED AUTHOR AUTHOR'S ORGANIZ ATION 08/13/2023 [facility] DATE CREATED AUTHOR AUTHOR'S ORGANIZ ATION 10/30/2023 [facility] EPIC DATE CREATED AUTHOR AUTHOR'S ORGANIZ ATION 11/22/2023 [facility] DATE CREATED AUTHOR AUTHOR'S ORGANIZ ATION 12/03/2023 [facility] Reason for Visit (unrecogniz ed section and content) Status Reason Specialty Diagnoses / Procedures Referre d By Contact Referred To Contact Diagnoses Vitreous hemorrhage (HCC) VITREOUS HEMORRAGE Procedures [place] VITRECTOMY,MECHANICAL [place] VITRECTOMY PARS PLANA REMOVE PRERETINAL MEMBRANE VITRECTOMY 25 GAUGE Martir Bang MD [facility] [facility], [address] [place] [address] [facility] Reason Comments Follow-up Surgical clearance Reason Onset Date Comments [employer] 09/13/2023 Reason Comments Follow-up Patient is here toda y as a post stroke follow up Reason Onset Date Comments Request for Surgical Clearance 09/17/2023 Reason Comments Med Refill Care Teams (unrecognized sec tion and content) Brass Chaser Relationship Specialty Start Date End Date Christophe Irwin MD [address] [place] [phone] PCP - General Family Medicine 07/20/23 Brass Chaser Relationship Specialty Start Date End Date Christophe Irwin MD [address] [place] [phone] PCP - General Family Medicine 07/20/23 Brass Chaser Relationship Specialty Start Date End Date Christophe Irwin MD [address] [place] [address] PCP - General Family Medicine 07/23/23 Brass Chaser Relationship Specialty Start Date End Date Christophe Irwin MD [address] [place] [address] PCP - General Family Medicine 07/23/23 Brass Chaser Relationship Specialty Start Date End Date Christophe Irwin MD [address] [place] [address] PCP - [facility] 07/23/23 Team Status: Active Member Role Status Dates Roney Sahu MD Primary Care Provider Active Team Status: Inactive Member Role Status Dates Roney Sahu MD Primary Care Provider Active Start: September 30, 2023 End: September 30, 2023 Nancy Stevens APRN Attending Provider Active Start: September 30, 2023 End: September 30, 2023 Brass Chaser Relationship Specialty Start Date End Date Christophe Irwin MD [address] [place] [address] PCP - [facility] 07/23/23 Goals (unrecognized section [...] BE BASED ON THE PRIMARY CLINICAL RECORDS. Compliance Assurance [facility]. provides no warranty or guarantee of the accuracy or completeness of information in this document.
== END 2024-01-31 13:00 | disposition home or self-care (01) ==
LOC: WC 13:01
PROVIDERS: PCP Family Medicine; Visit Provider Physician Assistant
DX: T81.89XA Other complications of procedures, not elsewhere classified, initial encounter (principal)
CPT/HCPCS: G0463